=== PATIENT | female | born 1970 | race Hispanic/Latino ===

== ENCOUNTER → 2017-08-23 | Outpatient (REF) | payer BC | LOC: M LAB REF 18:44 | DX: J11.1 Influenza due to unidentified influenza virus with other respiratory manifestations (principal) | CPT/HCPCS: 87633 ==

== ENCOUNTER → 2018-04-26 | Outpatient (CLI) | payer BC | LOC: M RAD 13:58 | DX: N63.10 Unspecified lump in the right breast, unspecified quadrant (principal) | CPT/HCPCS: 77066 ==

== ENCOUNTER → 2018-09-17 | Outpatient (REF) | payer OTHER ==
[2018-09-19 15:52] LABS: HPV HYBRID CAPTURE II Negative (Negative)
== END ==
LOC: M SFHCWAGY 09:39
PROVIDERS: ATTEND Nurse Practitioner Family
DX: Z12.4 Encounter for screening for malignant neoplasm of cervix (principal)
CPT/HCPCS: 87624; G0123

== ENCOUNTER 2019-05-27 01:48 | Emergency (ER) | payer OTHER ==
[~2019-05-27] VITALS: Ht 160 cm; Wt 80.0 kg
[2019-05-27 02:16] LABS: BASO # 0.1 10^3/uL (0.0-0.2); BASO % 0.7 % (0.0-1.0); EOS # 0.3 10^3/uL (0.0-0.5); EOS % 2.4 % (0.0-3.0); HEMATOCRIT 42.2 % (36.0-47.0); HEMOGLOBIN 13.7 g/dl (12.0-15.5); LYMPH # 2.8 10^3/uL (1.5-5.0); LYMPH % 26.3 % (24.0-44.0); MEAN CORPUSCULAR HEMOGLOBIN 30.2 pg (27.0-33.0); MEAN CORPUSCULAR HGB CONC 32.5 g/dl (32.0-36.5); MEAN CORPUSCULAR VOLUME 93.2 fl (80.0-96.0); MONO # 0.7 10^3/uL (0.0-0.8); MONO % 6.6 % (0.0-5.0); NEUTROPHILS # 6.6 10^3/uL (1.5-8.5); NEUTROPHILS % 63.1 % (36.0-66.0); PLATELET COUNT, AUTOMATED 264 10^3/uL (150-450); RED BLOOD COUNT 4.53 10^6/uL (4.00-5.40); WHITE BLOOD COUNT 10.5 10^3/uL (4.0-10.0)
[2019-05-27 02:47] LABS: ALBUMIN 3.8 GM/DL (3.2-5.2); ALT/SGPT 34 U/L (12-78); BILIRUBIN,DIRECT < 0.1 MG/DL (0.0-0.2); BILIRUBIN,TOTAL 0.3 MG/DL (0.2-1.0); BLOOD UREA NITROGEN 23 MG/DL (7-18); CALCIUM LEVEL 9.2 MG/DL (8.5-10.1); CARBON DIOXIDE LEVEL 28 MEQ/L (21-32); CHLORIDE LEVEL 107 MEQ/L (98-107); CREATININE FOR GFR 0.84 MG/DL (0.55-1.30); GLOMERULAR FILTRATION RATE > 60.0 (>51); GLUCOSE, FASTING 130 MG/DL (70-100); LIPASE 152 U/L (73-393); POTASSIUM SERUM 3.9 MEQ/L (3.5-5.1); SODIUM LEVEL 142 MEQ/L (136-145); TOTAL PROTEIN 7.1 GM/DL (6.4-8.2)
[2019-05-27] MEDS ORDERED: ONDANSETRON 4MG/2ML VIAL (J2405) IV ONE (03:15)
[2019-05-27] MEDS ORDERED: KETOROLAC 30 MG/ML VIAL (J1885) IV ONE (03:15)
[2019-05-27] MEDS ORDERED: NS 1,000 ML IV ONE (03:15)
[2019-05-27] MEDS ORDERED: MORPHINE 4 MG/ML 1ML VIAL/SYRINGE (J2270) IV ONE (03:45)
--- NOTE | 2019-05-27 04:13 | REPVR ---
PROCEDURE INFORMATION: Exam: CT Abdomen And Pelvis Without Contrast Exam date and time: 05/27/2019 3:53 AM Clinical history: 49 years old, female; Abdominal pain; Localized; Left upper quadrant (luq); Additional info: Luq, L flank pain, HX kidney stones TECHNIQUE: Imaging protocol: Computed tomography of the abdomen and pelvis without contrast. Radiation optimization: All CT scans at this facility use at least one of these dose optimization techniques: automated exposure control; mA and/or kV adjustment per patient size (includes targeted exams where dose is matched to clinical indication); or iterative reconstruction. COMPARISON: CT ABD PELVIS W/O CONTRAST 05/03/2015 3:13 PM FINDINGS: Lungs: There is minimal, nonspecific dependent density in the lung bases. Mediastinum: A small hiatal hernia is present. Liver: The unenhanced liver appears unremarkable. Gallbladder and bile ducts: The gallbladder is normal with no stones or biliary ductal dilation. Pancreas: The pancreas appears unremarkable. No pancreatic ductal dilation identified. Spleen: The unenhanced spleen appears unremarkable. Adrenals: The adrenal glands are normal. Kidneys and ureters: There is left sided perinephric stranding. There is mild left kidney hydronephrosis. There is a 4 x5 mm distal left ureteral stone. The right ureter appears normal with no stones or hydronephrosis. There is a 3 mm nonobstructing stone in the left kidney lower pole. Stomach and bowel: Mild diverticulosis is present in the distal colon. The small bowel appears unremarkable. Appendix: A normal appendix is identified. Intraperitoneal space: There is no evidence of free intraperitoneal or pelvic fluid. There is no free intraperitoneal air. Vasculature: No aortic aneurysm. Lymph nodes: Unremarkable. No enlarged lymph nodes. Bladder: The bladder is unremarkable. No stones identified. Reproductive: The uterus is unremarkable. Bones/joints: No suspicious osseous lesions. No acute fractures or dislocations. Soft tissues: The soft tissues appear unremarkable. IMPRESSION: Obstructing 4 x 5 mm distal left ureteral stone with associated left-sided hydronephrosis and perinephric stranding. Electronically signed by: Camille Lazo On 05/27/2019 04:13:17 AM
[2019-05-27 05:48] VITALS: BP 101/56
[2019-05-27] MEDS ORDERED: ZOFR4TAB16 PO (06:09)
[2019-05-27] MEDS ORDERED: PERC5TAB12 PO (06:10)
[2019-05-27] MEDS ORDERED: FLOM0.4C39 PO (06:11)
== END 2019-05-27 06:43 | disposition home or self-care (01) ==
LOC: M ED 01:48
DX: N20.1 Calculus of ureter (principal); I47.1 Supraventricular tachycardia; Z88.1 Allergy status to other antibiotic agents; Z91.041 Radiographic dye allergy status
CPT/HCPCS: 74176; 80048; 80076; 81001; 83690; 85025; 96361; 96374; 96375; 99283; J1885; J2270; J2405

== ENCOUNTER → 2019-06-03 | Outpatient (REF) | payer OTHER ==
[~2019-06-03] MED LIST: FLOM0.4C39 PO; PERC5TAB12 PO; ZOFR4TAB16 PO
== END ==
LOC: M SMT 17:06
PROVIDERS: ATTEND Nurse Practitioner Women's Health
DX: N13.2 Hydronephrosis with renal and ureteral calculous obstruction (principal)

== ENCOUNTER → 2019-06-04 | Outpatient (CLI) | payer OTHER ==
[2019-06-04 11:35] LABS: IONIZED CALCIUM 4.6 MG/DL (4.5-5.3)
[2019-06-04 12:13] LABS: BLOOD UREA NITROGEN 13 MG/DL (7-18); CALCIUM LEVEL 8.9 MG/DL (8.5-10.1); CARBON DIOXIDE LEVEL 29 MEQ/L (21-32); CHLORIDE LEVEL 106 MEQ/L (98-107); CREATININE FOR GFR 0.69 MG/DL (0.55-1.30); GLOMERULAR FILTRATION RATE > 60.0 (>51); GLUCOSE, FASTING 100 MG/DL (70-100); MAGNESIUM LEVEL 2.4 MG/DL (1.8-2.4); PHOSPHORUS LEVEL 3.2 MG/DL (2.5-4.9); SODIUM LEVEL 141 MEQ/L (136-145); URIC ACID 5.1 MG/DL (2.6-6.0)
[2019-06-04 12:19] LABS: PTH INTACT 53.5 PG/ML (18.5-88.0)
== END ==
LOC: M LAB 11:16
PROVIDERS: ATTEND Nurse Practitioner Women's Health
DX: N13.2 Hydronephrosis with renal and ureteral calculous obstruction (principal)

== ENCOUNTER → 2019-09-16 | Outpatient (CLI) | payer BC, OTHER ==
--- NOTE | 2019-09-16 13:57 | REPMRS ---
Patient History The patient states she had a clinical breast exam in 09/2019. Patient is postmenopausal. No known family history of cancer. Benign stereotactic core biopsy of the left breast, 2006. No Hormone Replacement Therapy Digital Woman Screen Mammo: September 16, 2019 - Exam #: [id number] Bilateral CC and MLO view(s) were taken. Technologist: Aicha Rubin, Technologist Prior study comparison: April 26, 2018, digital mammo diagnostic bilateral, performed at [facility]. October 08, 2015, digital woman screen mammo performed at [facility]. July 27, 2014, digital woman screen mammo performed at [facility]. FINDINGS: There are scattered fibroglandular densities. This patient underwent a stereotactic needle biopsy and 2006 in the left breast for asymmetric density. A marker clip is again noted in the left breast adjacent to a stable soft tissue density. However, there are new microcalcifications posterior to the soft tissue density lateral to the soft tissue density which merit further evaluation. These do not appear to have been present previously. They are not well seen on the MLO view. There has been no other change in the appearance of the mammogram from the prior studies. There is a mild amount of scattered fibroglandular density which is fairly symmetric. There is no other interval development of dominant mass, architectural distortion, or grouped microcalcification suggestive of malignancy. 3-D tomosynthesis shows no additional findings. Assessment: BI-RADS/ACR category 0 mammogram, Incomplete: Need additional imaging evaluation and/or prior mammograms for comparison. Recommendation Special view mammogram of the left breast. This patient's Lifetime Breast Cancer Risk is estimated at 7.7 %. This mammogram was interpreted with the aid of an FDA-approved computer-aided dectection system. Electronically Signed By: Grayson Cope MD 09/16/19 [id number]
== END ==
LOC: M WHC 10:11
PROVIDERS: ATTEND Nurse Practitioner Family
DX: Z12.31 Encounter for screening mammogram for malignant neoplasm of breast (principal); R92.8 Other abnormal and inconclusive findings on diagnostic imaging of breast

== ENCOUNTER → 2019-09-16 | Outpatient (REF) | payer BC ==
[2019-09-16 16:05] LABS: CHLAMYDIA DNA AMPLIFICATION NEGATIVE (NEGATIVE); GC DNA AMPLIFICATION NEGATIVE (NEGATIVE)
== END ==
LOC: M SFHCWAGY 12:53
PROVIDERS: ATTEND Nurse Practitioner Family
DX: N84.1 Polyp of cervix uteri (principal); Z11.3 Encounter for screening for infections with a predominantly sexual mode of transmission

== ENCOUNTER → 2019-09-23 | Outpatient (CLI) | payer BC ==
--- NOTE | 2019-09-23 15:03 | REP ---
DIAGNOSTIC MAMMOGRAM LEFT BREAST: Magnification views left breast performed and correlated with the recent mammogram of 09/16/2019. These magnification views confirm the presence of pleomorphic microcalcifications in the upper outer quadrant of the left breast, posterior to a biopsy clip from a prior negative sterotactic biopsy. There appear to be at least three separate clusters of at least five microcalcifications in this region, at approximately 12 to 1 o'clock. This spans a tissue diameter of approximately 3 to 4 cm. Stereotactic biopsy is recommended. IMPRESSION: BIRADS 4: BI-RADS/ACR category 4 mammogram. Suspicious Abnormality - biopsy should be considered. New pleomorphic microcalcifications in the upper outer quadrant of the left breast with at least three separate clusters of microcalcifications in the region of 12 to 1 o'clock left breast. Stereotactic biopsy is recommended. The patient letter being requested is M4.
== END ==
LOC: M WHC 13:59
PROVIDERS: ATTEND Nurse Practitioner Family
DX: R92.0 Mammographic microcalcification found on diagnostic imaging of breast (principal)

== ENCOUNTER → 2019-09-25 | Outpatient (CLI) | payer BC ==
--- NOTE | 2019-09-25 20:18 | REP ---
Clinical: Postmenopausal bleeding. Technique: Transabdominal pelvic ultrasound followed by transvaginal examination for better evaluation of the endometrium and adnexa with color Doppler evaluation of the ovaries. Findings: Heterogeneous anteverted uterus measures 8.5 x 3.7 x 5.2 cm. Endometrial complex measures 3.8 mm thickness excluding trace amount of endocervical fluid. No discrete uterine or endometrial abnormalities identified. Bilateral ovaries are normal in appearance and vascularity without torsion. Right ovary measures 1.3 x 1.3 x 1.3 cm (RI 0.46). Left ovary measures 2.0 x 1.3 x 2.0 cm (RI 0.68). No pelvic fluid or adnexal mass lesion. Bladder is collapsed. Impression: Essentially normal pelvic ultrasound. Electronically Signed by Anand Camarillo MD 09/25/2019 08:10 P
== END ==
LOC: M WHC 11:36
PROVIDERS: ATTEND Nurse Practitioner Family
DX: N95.0 Postmenopausal bleeding (principal)

== ENCOUNTER → 2019-10-09 | Outpatient (CLI) | payer BC ==
[2019-10-09 09:27] VITALS: BP 118/80
--- NOTE | 2019-10-09 10:23 | REP ---
Specimen radiography left breast: Three views History: Stereotactic needle biopsy left breast. Multiple groupings of microcalcifications on comparison mammography September 23, 2019. Findings: The initial images labeled first biopsy medial area. The specimen radiograph demonstrates numerous microcalcifications in four separately collected specimens. The second and third image are labeled second biopsy lateral. These two views demonstrate multiple microcalcifications as well in each of the removed specimens. F impression: Specimen radiography confirms microcalcifications from the target grouping was. Electronically Signed by Ranjith Cope MD 10/09/2019 09:59 A
--- NOTE | 2019-10-09 10:32 | REP ---
DIGITAL DIAGNOSTIC UNILATERAL LEFT BREAST MAMMOGRAPHY: TWO VIEWS. HISTORY: Marker clip placement views. The patient status post stereotactic needle biopsy for two separate microcalcific targets in the left breast. Comparison mammography September 23, 2019. FINDINGS: The previously placed needle biopsy marker clip is again seen in the left breast approximately 1 o'clock. Lateral and somewhat posterior to this is a newly placed marker clip. This clip is in good position where a prior mammography showed a microcalcific grouping. There are very few remaining microcalcifications from this grouping. At second newly placed marker clip is seen in good position relative to another group of calcifications. This second clip is more inferiorly positioned. There is no evidence of phil hematoma. IMPRESSION: Two marker clips are placed today and appear in good position.
--- NOTE | 2019-10-11 13:38 | ROOPDOC ---
[facility] Report Of Operation Report of Operation DATE OF PROCEDURE: 10/09/19 PREPROCEDURE DIAGNOSES: Left breast calcifications POSTPROCEDURE DIAGNOSES: Left breast calcifications PROCEDURE: Left breast biopsy of 2 different clusters of calcifications SURGEON: Karyn Benavidez SPINNER OPERATOR: Dr Kelvin Cope MD ANESTHESIA: Local anesthetic was used ESTIMATED BLOOD LOSS: Approximately 1 mL. COMPLICATIONS: None REMARKS: 2 postbiopsy clips were seen in left breast mammogram along with the previously placed old clip.. DESCRIPTION OF PROCEDURE: Lidocaine 1% LOT [id number] Expiration 11/2022 Sodium Bicarbonate 8.4% LOT [id number] Expiration 11/2020 Hydromark clip LOT [id number] Expiration 04/2021 T1 titanium shaped 1 (closed Spring) medial biopsy site Hydromark clip LOT [id number] Expiration 09/2021 T3 titanium shaped 3 lateral biopsy site Bx device: Stereotactic Mammotome Revolve Dual Vacuum- assisted Biopsy System 10 G LOT [id number] Expiration 07/2022 medial biopsy site Bx device: Stereotactic Mammotome Revolve Dual Vacuum- assisted Biopsy System 10 G LOT [id number] Expiration 07/2022 lateral biopsy site Informed consent was obtained in the preop area. The most common risk and possible complications including bleeding, hematoma, bruising, infection, injury to surrounding structures were explained to the patient and she expressed understanding. Patient was taken to the procedure room and placed prone on the [facility] Prone Breast Biopsy table with the left breast hanging through the table aperture. Left breast was placed into Cranio-Caudal compression and Chief Human Resources Officer rogerio images were taken. Suspicious calcifications were identified on the rogerio images and target was set. Dr Kelvin Cope from radiology department assisted with the target selection. Two sites of calcifications were chosen. The CC approach from the top was also chosen. At this time, since we were able to confirm visibility of the suspicious calcifications and patient tolerated prone positioning allowing to proceed with the biopsy, appropriate time out was done stating patients name, date of , and the procedure to be performed. Procedure was started targeting medial group of calcifications. The left breast in CC compression was prepped in the usual fashion. Plain Lidocaine 1% and 8.4% sodium bicarbonate 10:1 mix was used to numb the skin, the biopsy site and tissues along the anticipated biopsy tract. Small skin incision was made with blade number 11. Mammotome 10 G stereotactic breast biopsy device was inserted through the incision and advanced to the previously set coordinates marking the target lesion. Pre-fire imaging was taken to assure appropriate positioning. At this time, Mammotome 10 G breast biopsy device was fired and vacuum assisted biopsies were collected. The biopsy samples were investigated with Faxitron Imaging system and numerous calcifications were observed in the specimen. Biopsy samples were then placed in the formaldehyde, marked with patients name and left medial breast biopsy site, and sent to pathology for evaluation. Hydromark clip was placed into the Mammotome biopsy device channel and deployed. Post-deployment imaging was done to assure appropriate clip deployment. Clip was noted in the left breast. This part of the procedure was completed and the device was removed from the breast. Manual compression in addition to paddle compression was held to achieve hemostasis. Next, our attention was shifted toward the lateral group of calcifications. New target was set after obtaining new lead worker of housekeeping and laundry rogerio views. The left breast was already in CC compression and there was no need for repositioning. Plain Lidocaine 1% an d 8.4% sodium bicarbonate 10:1 mix was used to numb the skin, the biopsy site and tissues along the anticipated biopsy tract for the lateral target. Small skin incision was made with blade number 11. Mammotome 10 G stereotactic breast biopsy device was inserted through the incision and advanced to the previously set coordinates marking the target lesion. Pre-fire imaging was taken to assure appropriate positioning. At this time, Mammotome 10 G breast biopsy device was fired and vacuum assisted biopsies were collected. The biopsy samples were investigated with Faxitron Imaging system and numerous calcifications were observed in the specimen. Biopsy samples were then placed in the formaldehyde, marked with patients name and left lateral breast biopsy site, and sent to pathology for evaluation. Hydromark clip was placed into the Mammotome biopsy device channel and deployed. Post-deployment imaging was done to assure appropriate clip deployment. Two clips were noted in the left breast. At this point, paddle CC compression of the left breast was released and manual pressure was held to decrease harmonic effect and to assure hemostasis. No bleeding was noted upon removal of the pressure. Patient was slowly repositioned and placed into sitting position, and then assisted off the table. Post-biopsy mammogram of the left breast was obtained and showed clips in expected position. Postprocedural dressing was placed. Patient tolerated procedure well and was taken to the recovery unit in stable condition. Discharge instructions were discussed with the patient and she expressed understanding. KARYN BENAVIDEZ DO Oct 11, 2019 13:38
== END ==
LOC: M WHCPRO 07:07
PROVIDERS: ATTEND Surgery
DX: D05.12 Intraductal carcinoma in situ of left breast (principal)

== ENCOUNTER → 2019-10-13 | Outpatient (REF) | payer BC | LOC: M SFHCWAGY 09:51 | PROVIDERS: ATTEND Surgery | DX: L53.9 Erythematous condition, unspecified (principal) ==

== ENCOUNTER → 2019-10-16 | Outpatient (CLI) | payer BC ==
--- NOTE | 2019-10-16 09:22 | REP ---
FOCUSED RIGHT BREAST SONOGRAPHY: HISTORY: Palpable mass 7- o'clock position 3 cm from the nipple and at 12-o'clock position 2.5 cm from the nipple. SONOGRAPHIC FINDINGS: Scanning at the area of the 7 o'clock palpable lesion shows a normal breast stroma. No cyst or mass is seen. At 12 o'clock position, 3 cm from the nipple there is a 1.3 x 1.1 x 0.4 cm oval-shaped simple cyst. This is felt to be unchanged when compared with sonographic images from this area of the right breast obtained on October 25, 2018. IMPRESSION: BIRADS category 2 benign findings.
== END ==
LOC: M WHC 07:35
PROVIDERS: ATTEND Surgery
DX: N60.01 Solitary cyst of right breast (principal); N63.20 Unspecified lump in the left breast, unspecified quadrant; N63.10 Unspecified lump in the right breast, unspecified quadrant

== ENCOUNTER → 2019-10-21 | Outpatient (REF) | payer BC ==
[2019-10-21 11:15] LABS: BLOOD UREA NITROGEN 13 MG/DL (7-18); CALCIUM LEVEL 8.4 MG/DL (8.5-10.1); CARBON DIOXIDE LEVEL 28 MEQ/L (21-32); CHLORIDE LEVEL 108 MEQ/L (98-107); GLOMERULAR FILTRATION RATE > 60.0 (>51); GLUCOSE, FASTING 99 MG/DL (70-100); POTASSIUM SERUM 3.8 MEQ/L (3.5-5.1); SODIUM LEVEL 139 MEQ/L (136-145)
== END ==
LOC: M PLALAB 08:03
PROVIDERS: ATTEND Surgery
DX: D05.12 Intraductal carcinoma in situ of left breast (principal)

== ENCOUNTER → 2019-10-24 | Outpatient (CLI) | payer BC ==
[~2019-10-24] MED LIST changes: +PROHANCE 279.3MG/ML 15ML VIAL (A9576) As Ordered ONE; +PROHANCE 279.3MG/ML 5ML VIAL (A9576) As Ordered ONE
--- NOTE | 2019-10-27 10:33 | REP ---
MRI BILATERAL BREASTS WITH AND WITHOUT CONTRAST: HISTORY: Ductal carcinoma left breast. COMPARISON: Mammograms 09/16/2019, 09/23/2019 and 10/09/2019. TECHNIQUE: Multiple sequences obtained in the axial, coronal and sagittal planes prior to and following the intravenous administration of 50 mL ProHance. Images are evaluated on the Svpply software, including dynamic post-IV gadolinium, axial T1 fat sat images, subtraction images, color overlay images and MIP reconstruction images. There is moderate parenchymal tissue bilaterally. There mild background parenchymal enhancement. Lymph nodes are seen in both axillary regions, more so on the left than on the right. All are less than 1 cm in short axis dimension. There is an oval cyst in the upper outer quadrant of the right breast measuring about 1.1 x 1.2 x 0.7 cm. Along the anteromedial margin of this cyst, there is nodular suspicious enhancement which has irregular margins. This demonstrates type 3 enhancement. This measures approximately 1 cm in diameter. In the left breast, three biopsy clips are present. One clip is more posteriorly and inferiorly located near the plane of the nipple, slightly medial to the midline. The other two clips are more superiorly located with a small amount of adjacent post biopsy fluid. Along the superior margin of the more medial clip, there is nodular, irregular suspicious enhancement measuring approximately 1 cm in diameter. More lateral marking clip is at the same level of the breast but does not demonstrate adjacent suspicious enhancement. In the posterior third of the breast, there is a 5 mm enhancing focus which is felt to represent an intramammary lymph node. No other suspicious enhancing mass or morphologic abnormality is seen bilaterally. IMPRESSION: BIRADS category 6 MRI left breast. In the superior aspect of the left breast, there are two adjacent biopsy clips. Along the superior margin of the more medially located clip, there is suspicious nodular enhancement approximately 1 cm in diameter. BIRADS category 4 suspicious MRI right breast. Along the anteromedial margin of a cyst in the upper outer quadrant of the right breast, there is an irregular enhancing nodule 1.0 x 1.2 x 1.0 cm. Recommend the patient return for a second look ultrasound of the right breast to attempt to identify this nodule along the anteromedial margin of the oval cyst, the cyst measures 1.1 x 1.2 x 0.7 cm. Electronically Signed by Nabeel Mullins MD 10/27/2019 10:54 A
== END ==
LOC: M RAD 14:40
PROVIDERS: ATTEND Surgery
DX: D05.12 Intraductal carcinoma in situ of left breast (principal)
CPT/HCPCS: A9576; C8908

== ENCOUNTER → 2019-10-28 | Outpatient (CLI) | payer BC ==
[~2019-10-28] MED LIST changes: -PROHANCE 279.3MG/ML 15ML VIAL (A9576) As Ordered ONE; -PROHANCE 279.3MG/ML 5ML VIAL (A9576) As Ordered ONE
--- NOTE | 2019-10-29 02:58 | REP ---
Clinical: Pain. Technique: AP and lateral views of the left tibia / fibula. Findings: Osseous structures, joint spaces, and surrounding soft tissues are normal. No acute fracture or dislocation. Surrounding soft tissues are unremarkable. Impression: Normal left tibia / fibula radiographs. Electronically Signed by Anand Camarillo MD 10/29/2019 02:51 A
== END ==
LOC: M RAD 17:06
PROVIDERS: ATTEND Internal Medicine
DX: M79.662 Pain in left lower leg (principal)

== ENCOUNTER → 2019-10-29 | Outpatient (CLI) | payer BC ==
--- NOTE | 2019-10-29 07:14 | CR ---
DATE OF CONSULTATION: 10/28/[address] Ramachandran. Dear Dr. Ramachandran: Thank you for asking me to see Ms. Stapleton in consultation prior to her breast surgery. As you know, Ms. Stapleton is a 49-year-old female with a past medical history of hyperglycemia, hyperlipidemia, nephrolithiasis, who presents in her usual state of health. Patient reports status post left breast biopsy requiring the use of clindamycin with good healing at site. She denies any fevers or chills, chest pain, or shortness of breath. Patient reports chronic foot pain. Was supposed to have surgery 5 years ago for bone spurs and a split tendon, but delayed surgery. Is now requesting further evaluation, referral back to [facility] after also having some left burning barbosa pain, which has been going on at least 6 months. Patient has history of supraventricular tachycardia (SVT) status post ablation times two in 2015. She does have an occasional palpitation but denies any associated lightheadedness, dizziness, chest pain, or shortness of breath. Patient reports recurrent nephrolithiasis. Trying to hydrate. Onset was in 2008. Follows with urology. Patient has tried to be healthier the last 3 years, consuming more water, less carbohydrates, sleeping better, and has lost 13 pounds. 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 Patient does have history of sleep apnea but reports it is mild and positional. REVIEW OF SYSTEMS: Otherwise, negative. PAST MEDICAL HISTORY: 1. Supraventricular tachycardia, status post cardiac ablation times two in 2015. Follows with Dr. Presley at [facility] every 2 years and has been given a good bill of health. 2. Hyperglycemia. 3. Hyperlipidemia. 4. Nephrolithiasis, recurrent. 5. Hiatal hernia. 6. Sleep apnea, positional. No continuous positive airway pressure (CPAP). 7. Foot pain, felt to be secondary to bilateral great metatarsal bone spurs. Has seen [facility], approximately 2014. MEDICATIONS: - multivitamin - vitamin D3 ALLERGIES: No known drug allergies. SOCIAL HISTORY: Single. Has children. 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 Never smoked. Only occasional alcohol. No regular exercise. FAMILY HISTORY: Father of heart attack. Mother skin cancer, thyroid issues, cardiac issues. A brother with prediabetes. Another brother with hyperlipidemia. PHYSICAL EXAMINATION: Obese female, no acute distress. Vital signs: Weight 173 with a body mass index (BMI) of 32. Blood pressure 98/64 with a heart rate of 71. Oxygen saturation is 92%. HEENT exam: Head is normocephalic. Neck is supple. She wears eyeglasses, but pupils equal, reactive to light. Extraocular movements are intact. Left tympanic membrane normal. Right tympanic membrane scarred and red. No cervical lymphadenopathy, jugular venous distention (JVD), thyromegaly, carotid bruits. Respiratory: Clear to auscultation. Resonant to percussion. Cardiovascular: Regular rate and rhythm. No murmur, rub, gallop. Abdomen: Obese, soft, nontender. No hepatosplenomegaly. Extremities: No cyanosis, clubbing, or edema. Breast examination: Mild diffuse fibroglandular breast disease. Left upper breast palpable thickening from recent biopsy, minimal tenderness, no erythema. LABORATORY DATA: From 10/28/2019, EKG normal sinus rhythm, rate of 71, axis of 10, some nonspecific T-wave flattening, unchanged from previous EKG. Labs 10/28/2019, normal CBC, med profile. Sugar is 110, but this is nonfasting. Normal liver panel. From 09/11/2019, fasting blood work showed a slightly elevated glucose at 104, an A1c of 6.0, total cholesterol 215, triglycerides 207, HDL 55, LDL 119 with a TSH of 2.84. IMPRESSION: Ms. Stapleton is a 49-year-old female with cardiovascular risk factors positive for prediabetes, obesity, hyperlipidemia, age, family history, who is active with no concerning cardiovascular symptoms and is felt to be optimized and at low risk for cardiovascular complications from the proposed surgical intervention, which can be further minimized by the following: PROBLEMS: 1. Left otitis media. Treat with amoxicillin. Patient reports surgery will not be at least until November. She will call if she has any further issues from this. 2. Hyperglycemia. Commended for efforts. Continue diet, exercise, carbohydrate restriction. 3. Hyperlipidemia. Continue diet, exercise. 4. Hiatal hernia, asymptomatic. 5. Obstructive sleep apnea (ALAYNA). [place] to be positional. She lies on her side. Improved since her weight loss. Certainly should monitor oxygen saturations perioperatively. 6. Supraventricular tachycardia. Treated with ablation. Clinically minimally symptomatic. Hold off further evaluation/treatment. 7. Nephrolithiasis. Continue to push fluids, dairy products, lemon, citrus. Clinically asymptomatic today. 8. Osteoarthritis (OA), chronic foot pain with known bone spurs. I will refer back to [facility]. She has left barbosa pain that I will proceed with x-ray imaging and followup as outpatient. Thank you very much for this consultation. Please call with questions or concerns.
--- NOTE | 2019-10-29 11:17 | REP ---
BILATERAL BREAST ULTRASOUND: Bilateral breast ultrasound is performed. Correlation made with prior MRI 10/24/2019 and mammographic images, most recently 10/09/2019. In the right breast at 12-o'clock position, an oval cyst is seen measuring 13 x 5 x 14 mm. Along the anteromedial margin of the cyst is a spiculated nodule corresponding to the suspicious nodule on the MRI. The spiculated nodule measures 1.1 x 0.8 x 1.0 cm. Ultrasound-guided biopsy is recommended. In the left breast at 11-o'clock, the most medial biopsy clip is identified. On the MRI there was an enhancing nodule just superior to that clip, which is located more inferiorly and medially relative to the other two biopsy clips, which are located in the upper outer quadrant of the left breast. There is no sonographic evidence of a nodule at the location of the nodular enhancement. Electronically Signed by Nabeel Mullins MD 10/29/2019 11:22 A
== END ==
LOC: M RAD 09:53
PROVIDERS: ATTEND Surgery
DX: C50.912 Malignant neoplasm of unspecified site of left female breast (principal)

== ENCOUNTER → 2019-10-31 | Outpatient (CLI) | payer BC ==
[~2019-10-31] MED LIST changes: +AMOX500C PO
[2019-10-31 16:53] VITALS: BP 122/82
--- NOTE | 2019-11-01 09:57 | REP ---
ULTRASOUND GUIDANCE FOR RIGHT BREAST BIOPSY: Ultrasound guidance was provided for Dr. Ramachandran who performed ultrasound-guided biopsy of a spiculated nodule at the 12-o'clock position of the right breast. This was seen on recent ultrasound 10/29/2019 and MRI 10/24/2019.
--- NOTE | 2019-11-01 09:59 | REP ---
POSTBIOPSY MAMMOGRAM RIGHT BREAST: MLO and CC views are performed of the right breast following ultrasound-guided biopsy of a spiculated nodule at 11 to 12-o'clock position right breast. Metallic clip is seen at the expected location of the spiculated nodule at the 11 to 12-o'clock position of the right breast.
--- NOTE | 2019-11-02 00:33 | ROOPDOC ---
[facility] Report Of Operation Report of Operation DATE OF PROCEDURE: 10/31/19 PREPROCEDURE DIAGNOSES: Right breast suspicious mass seen on MRI and then on second look ultrasound. POSTPROCEDURE DIAGNOSES: Right breast suspicious mass seen on MRI and then on second look ultrasound. PROCEDURE: Right breast mass ultrasound-guided biopsy with clip placement. SURGEON: Karyn Benavidez CHECKING DEPARTMENT SUPERVISOR: ANESTHESIA: Local anesthetic was used. ESTIMATED BLOOD LOSS: Approximately 1 mL. COMPLICATIONS: No complications. REMARKS: Postbiopsy right breast mammography showed clip in expected location. DESCRIPTION OF PROCEDURE: Lidocaine 1% LOT [id number] Expiration 08/2020 Sodium Bicarbonate 8.4% LOT [id number] Expiration 12/2020 Hydromark clip LOT [id number] SHAPE 4 Expiration: 05/2022 Bx device: BARD [id number] x10 cm LOT HUEN 3 Expiration 07/2022 Informed consent was obtained. The most common risk and possible complications including bleeding, hematoma, bruising, infection, injury to surrounding structures were explained to the patient and she expressed understanding. Patient was placed on the bed in the supine position with the right upper extremity placed above the head. Appropriate time out was done stating patients name, date of , and the procedure to be performed. The right breast was prepped and draped in the usual fashion. The ultrasound was used to confirm the location of the lesion in the right breast at 12:00 4 centimeters from the nipple. Plain Lidocaine 1% and 8.4% sodium bicarbonate 10:1 mix was used to numb the skin, the biopsy site and tissues along the anticipated biopsy tract. Small skin incision was made with blade number 11. BARD Marquee 14G cannula with introducer ([id number]) was inserted through the incision and advanced under the ultrasound guidance to position immediately adjacent to the lesion. Next, the introducer was removed and BARD Marquee 14G biopsy device was places in the cannula. Pre-biopsy imaging, and post-biopsy imaging were captured. Five good core biopsies were taken at various levels of the lesion. Specimen was placed in formaldehyde, labeled with appropriate biopsy site and patients name, and sent to pathology for evaluation. Next, the biopsy device was withdrawn and a clip introducer was inserted into the biopsy site via the cannula. The Hydromark clip was deployed under direct vision. Post-clip placement image was captured. Manual pressure over the biopsy cavity and tract was held after the clip introducer was withdrawn. No bleeding was noted upon removal of the pressure. Post-biopsy mammogram of the right breast showed clip in the expected location. Postprocedural dressing was placed. Patient tolerated procedure well. Discharge instructions were discussed with the patient and she expressed understanding. KARYN BENAVIDEZ DO Nov 02, 2019 00:33
== END ==
LOC: M WHCPRO 14:48
PROVIDERS: ATTEND Surgery
DX: C50.911 Malignant neoplasm of unspecified site of right female breast (principal)

== ENCOUNTER → 2019-10-31 | Outpatient (CLI) | payer BC ==
--- NOTE | 2019-11-01 08:04 | REPPI ---
REASON: Preop. PRIORS: None. FINDINGS: The superior mediastinal structures are midline. The cardiac silhouette is unremarkable in size, shape, and position. The diaphragmatic surfaces of the lungs are regular, and the costophrenic angles are clear. The pulmonary lara are clear. The imaged osseous structures are intact. IMPRESSION: There is no acute cardiopulmonary disease. Electronically Signed by Noman Crane DO 11/03/2019 07:50 A
== END ==
LOC: M PLAIMG 14:35
PROVIDERS: ATTEND Surgery
DX: Z01.818 Encounter for other preprocedural examination (principal); C50.912 Malignant neoplasm of unspecified site of left female breast

== ENCOUNTER → 2019-11-05 | Outpatient (CLI) | payer BC | LOC: M PLALAB 10:51 | PROVIDERS: ATTEND Surgery | DX: Z80.0 Family history of malignant neoplasm of digestive organs (principal); Z80.8 Family history of malignant neoplasm of other organs or systems ==

== ENCOUNTER → 2019-11-17 | Outpatient (CLI) | payer BC ==
[~2019-11-17] MED LIST changes: +CLIN300C5 PO; +DIPH25CA32 PO; +EXCETAB22 PO; +HYDR-3363 PO; +MULTCAP PO; +NATU1TAB5 PO; +OMEGCAP4 PO; +OXYC1TAB23 PO; +PERCOCET PO; +SENN-52 PO
== END ==
LOC: M LABSMTC 10:40
PROVIDERS: ATTEND Anesthesiology
DX: Z01.818 Encounter for other preprocedural examination (principal); Z11.59 Encounter for screening for other viral diseases
CPT/HCPCS: C9803; U0003

== ENCOUNTER 2019-11-20 06:36 | Day surgery (SDC) | payer BC ==
[~2019-11-20] VITALS: Ht 157.5 cm; Wt 76.8 kg
[~2019-11-20 06:36] MED LIST changes: -CLIN300C5 PO; -DIPH25CA32 PO; -EXCETAB22 PO; -HYDR-3363 PO; -OMEGCAP4 PO; -OXYC1TAB23 PO; -PERCOCET PO; -SENN-52 PO
[2019-11-20] MEDS ORDERED: LR 1,000 ML IV ONE (07:00)
[2019-11-20] MEDS ORDERED: HEPARIN SOD (PORCINE) 5000UNITS/ML VIAL (J1644 PER 1000UNITS) SQ ONE (07:00)
[2019-11-20] MEDS ORDERED: ceFAZolin SOD 2 GM in IV 1 EA IV ONE (07:00)
[2019-11-20] MEDS ORDERED: CLINDAMYCIN 900 MG in IV 1 EA IV ONE ×2 (09:45→17:00)
[2019-11-20] MEDS ORDERED: LIDOCAINE 2% 100MG/5ML SDV (FOR ANES.) As Ordered ONE (09:51)
[2019-11-20] MEDS ORDERED: fentaNYL 250 MCG/5 ML INJECTION (J3010) As Ordered ONE (09:51)
[2019-11-20] MEDS ORDERED: propofoL 200 MG/20 ML VIAL As Ordered ONE (09:51)
[2019-11-20] MEDS ORDERED: ROCURONIUM BROMIDE 50 MG/5 ML VIAL As Ordered ONE (09:51)
[2019-11-20] MEDS ORDERED: MIDAZOLAM INJ 2MG/2ML VIAL (J2250 PER 1MG) As Ordered ONE (09:52)
[2019-11-20] MEDS ORDERED: LIDOCAINE 1% SDV 30ML VIAL As Ordered ONE (09:57)
[2019-11-20] MEDS ORDERED: BUPIVACAINE HCL 0.25% 30ML VIAL As Ordered ONE (09:57)
[2019-11-20] MEDS ORDERED: BACITRACIN PWD 50,000 UNITS VIAL As Ordered ONE (09:58)
[2019-11-20] MEDS ORDERED: GENTAMICIN SULF 80MG/2ML VIAL As Ordered ONE (09:58)
[2019-11-20] MEDS ORDERED: SCOPOLAMINE 1MG TRANSDERMAL PATCH As Ordered ONE (10:07)
[2019-11-20] MEDS ORDERED: SCOPOLAMINE 1MG TRANSDERMAL PATCH TOP ONE (10:15)
[2019-11-20] MEDS ORDERED: METHYLENE BLUE 0.5% (5MG/ML) 10 ML AMP (PROVAYBLUE)(Q9968 PER 1MG) As Ordered ONE (10:18)
[2019-11-20] MEDS ORDERED: SUCCINYLCHOLINE 100 MG/5 ML SYRINGE (J0330) As Ordered ONE (10:32)
[2019-11-20] MEDS ORDERED: PHENYLephrine HCL 500 MCG/5 ML (100MCG/ML) SYRINGE (J2370) As Ordered ONE (10:40)
[2019-11-20] MEDS ORDERED: dexameTHASONE 4 MG/ML 1ML VIAL (J1100 PER 1MG) As Ordered ONE (10:43)
[2019-11-20] MEDS ORDERED: HYDROmorphone HCL 2 MG/ML 1ML VIAL (J1170) As Ordered ONE (10:51)
[2019-11-20] MEDS ORDERED: ONDANSETRON 4MG/2ML VIAL As Ordered ONE (11:06)
[2019-11-20] MEDS ORDERED: METOCLOPRAMIDE INJ 10MG/2ML VIAL (J2765 PER 1) As Ordered ONE (11:06)
[2019-11-20] MEDS ORDERED: ePHEDrine SULFATE 25 MG/5 ML(5MG/ML) SYRINGE As Ordered ONE (11:10)
[2019-11-20] MEDS ORDERED: BUPIVACAINE LIPOSOME/PF 1.3% 20ML VIAL (13.3MG/ML)(EXPAREL)(C9290 PER1MG) As Ordered ONE (13:26)
[2019-11-20] MEDS ORDERED: ACETAMINOPHEN 1000MG 100ML IV BTL (OFIRMEV) (J0131 PER 10MG) As Ordered ONE (14:06)
[2019-11-20] MEDS ORDERED: CLINDAMYCIN 900 MG/50 ML PREMIX BAG As Ordered ONE (14:37)
--- NOTE | 2019-11-20 15:16 | REP ---
BILATERAL BREAST LYMPHOSCINTIGRAPHY The procedure was performed under the direct supervision of Dr. Mullins. The images were reviewed with Dr. Mullins. The risks and benefits of the procedure were explained to the patient and informed consent was obtained. The right breast was addressed first. Using topical anesthetic and sterile technique 0.992 mCi of technetium 99 filtered sulfur colloid was injected subdermally and eight fractionated periareolar injections. The left breast was then addressed. Using topical anesthetic and sterile technique 0.999 mCi of technetium 99 filtered sulfur colloid was injected subdermally and eight fractionated periareolar injections. Images obtained 1 hour after injection show uptake in the tumor at 12 o'clock in the left breast and uptake in the upper outer quadrant of the right breast. Impression: Bilateral breast lymphoscintigraphy. There is uptake in the tumor at 12 o'clock in the left breast and uptake in the upper outer quadrant of the right breast. Electronically Signed by SOM Hand 11/20/2019 02:50 P Electronically Signed by Nabeel Mullins MD 11/20/2019 03:07 P
--- NOTE | 2019-11-20 15:33 | POST-OPPD ---
Postoperative Procedure Note Date Of Procedure: November 20, 2019 PREOPERATIVE DIAGNOSIS: Bilateral acquired deformity of the breasts, s/p bilateral mastectomy POSTOPERATIVE DIAGNOSIS: same FINDINGS: Bilateral skin spearing mastectomies. PROCEDURE: Immediate bilateral post mastectomy reconstruction with tissue expanders. SURGEON: Dr Koroma HOUSETRAILER SERVICER: Dr Ramachandran ANESTHESIA: General SPECIMENS: none ESTIMATED BLOOD LOSS: 50cc total REPLACED: none DRAINS: 10 mm EDUARDO drains x 4 COMPLICATIONS: none POSTOPERATIVE CONDITION: stable [id number] UMAIR KOROMA DO November 20, 2019 15:33
[2019-11-20] MEDS ORDERED: ACETAMINOPHEN TAB 650MG DOSE (2X325MG) PO PRN (15:45)
[2019-11-20] MEDS ORDERED: PERCOCET 5MG/325MG TAB PO PRN ×3 (15:45→16:15)
[2019-11-20] MEDS ORDERED: NS 1,000 ML IV SCH (15:45)
[2019-11-20] MEDS ORDERED: SENOKOT S TAB PO PRN (15:45)
[2019-11-20] MEDS ORDERED: MOM 30ML SUSPENSION UDC PO PRN (15:45)
[2019-11-20] MEDS ORDERED: ONDANSETRON 4MG/2ML VIAL IV PRN (16:00)
[2019-11-20] MEDS ORDERED: LR 1,000 ML IV SCH (16:00)
[2019-11-20] MEDS ORDERED: HYDROMORPHONE HCL 0.5 MG/ 0.5 ML SYRINGE (J1170 PER 1) IV PRN (16:15)
[2019-11-20] MEDS: fentaNYL 100 MCG/2 ML INJECTION (J3010) IV PRN ×2 (16:18→16:25)
[2019-11-20] MEDS ORDERED: diphenhydrAMINE 50MG/ML VIAL (J1200) As Ordered ONE (16:46)
[2019-11-20] MEDS ORDERED: CLINDAMYCIN 600 MG in IV 1 EA IV SCH (17:00)
[2019-11-20] MEDS ORDERED: diphenhydrAMINE 50MG/ML VIAL (J1200) IV PRN (17:00)
[2019-11-20] MEDS ORDERED: diphenhydrAMINE 25MG CAP PO PRN (18:00)
[2019-11-20] MEDS: LACTOBACILLUS ACIDOPHILUS CAP (BACID) PO SCH ×2 (18:00→20:02)
[2019-11-20] MEDS ORDERED: NALOXONE INJ 0.4MG/1ML VIAL (J2310 PER 1MG) IV PRN (18:15)
[2019-11-20 18:30] VITALS: BP 153/94
[2019-11-20 18:32] LABS: HEMATOCRIT 39.8 % (36.0-47.0); HEMOGLOBIN 13.1 g/dl (12.0-15.5); MEAN CORPUSCULAR HEMOGLOBIN 29.8 pg (27.0-33.0); MEAN CORPUSCULAR HGB CONC 32.9 g/dl (32.0-36.5); MEAN CORPUSCULAR VOLUME 90.5 fl (80.0-96.0); PLATELET COUNT, AUTOMATED 259 10^3/uL (150-450); WHITE BLOOD COUNT 13.6 10^3/uL (4.0-10.0)
[2019-11-20 19:00] VITALS: BP 151/93
[2019-11-20 19:04] LABS: BLOOD UREA NITROGEN 13 MG/DL (7-18); CALCIUM LEVEL 8.2 MG/DL (8.5-10.1); CARBON DIOXIDE LEVEL 27 MEQ/L (21-32); CHLORIDE LEVEL 104 MEQ/L (98-107); CREATININE FOR GFR 0.83 MG/DL (0.55-1.30); GLOMERULAR FILTRATION RATE > 60.0 (>51); GLUCOSE, FASTING 162 MG/DL (70-100); SODIUM LEVEL 139 MEQ/L (136-145)
[2019-11-20 19:14] LABS: HEMOGLOBIN A1c 5.8 %
[2019-11-20 20:48] VITALS: BP 145/90
--- NOTE | 2019-11-20 21:28 | ROOPDOC ---
[facility] Report Of Operation Report of Operation DATE OF PROCEDURE: 11/20/19 PREPROCEDURE DIAGNOSES: bilateral breast cancer POSTPROCEDURE DIAGNOSES: bilateral breast cancer PROCEDURE: bilateral skin sparing mastectomy with immediate reconstruction and bilateral sentinel lymph node biopsy, bilateral pectoralis and seratus muscle blocks SURGEON: Karyn Ramachandran DIRECTOR OF HOME CARE HOSPICE: Candy Roy ANESTHESIA: general. ESTIMATED BLOOD LOSS: Approximately 50 mL. COMPLICATIONS: none REMARKS, 2 left and 2 right sentinel lymph nodes were identified DESCRIPTION OF PROCEDURE: INDICATIONS: Ms. Stapleton is a 49 year old lady who was found to have a suspicious calcifications on her mammogram. Biopsy of left breast calcifications showed high grade DCIS in two different areas spanning 5 cm. MRI of the breast was obtained and it showed a suspicious nodule next to one of the clips in the left breast. Second look Us did not show suspicious lesion. MRI of the breast also showed suspicious mass in the right breast. This was biopsied and came back as invasive ductal cancer. We had extensive discussion regarding the surgical management and patient opted for bilateral mastectomy. I also explained that we need to evaluate her bilateral axilla with bilateral sentinel lymph node biopsy. Risks and possible complications of surgical procedure including bleeding, infection and injury to surrounding structures were explained to the patient and she wished to proceed. Consent was signed. Subcutaneous heparin 5000 units was given to patient in the preop area. Lymphoscintigraphy was reviewed preoperatively and the tracer was found in the bilateral axillas. DETAILS: Patient was taken to the operating room and placed supine on the operating room table. A sign in was called stating patients name, date of and the procedure to be done. Preoperative antibiotics were infused. Smooth induction of general anesthesia was done. Patients hands were extended on arm rests. Care was taken not to over extend patients arms Alejandre catheter was placed. Patients both breasts and axillas were prepped and draped in the usual fashion. Neoprobe was used to kulwinder the site of maximal signal in the axilla. The right and left breast Hydromark clips were identified with the ultrasound and skin was marked at each site marking the location of each tumor. Appropriate time out was done and patients name, date of , and the procedure to be done were confirmed. Procedure was started with left mastectomy. A transverse elliptical incision incorporating nipple areolar complex was made with scalpel number 15. Subcutaneous flaps were developed using electrocautery dissection. Dissection was carried toward the inframammary fold inferiorly, tow ann marie sternum medially, toward inferior aspect of clavicle superiorly and toward the axilla laterally. Doctor Paleys assistance was critical in allowing fast progression of the case and decreasing anesthesia time. Breast tissue was dissected from the muscle posteriorly and pectoralis fascia was taken with the specimen. The dissection was carried all the way to the [facility] making sure that axilla is not entered prematurely. Breast specimen was marked for orientation with short stitch marking superior edge of mastectomy and long stitch marking latera edge of mastectomy. The specimen was weighted and weight of 957 grams was reported. The specimen was then placed in formaldehyde, and passed to pathology. Mastectomy cavity was irrigated. Doctor Paleys assistance was critical in achieving adequate hemostasis and progressing the case safely. Next, our attention was turned toward the left axilla which was accessed from the mastectomy site. Clavipectoral fascia was opened over the site of maximum Neoprobe signal. Area of high signal was identified at the lateral border of the pectoralis major muscle. Echo lymph node #1 was identified and 10 second ex-vivo count was 4645. Second sentinel lymph node was identified and the 10 second ex-vivo count was 1698. Specimens were labeled appropriately and sent to pathology. Axilla was explored for presence of any additional lymph nodes and none were identified. 10 second count of the background was 7. Doctor Paleys assistance with identification of sentinel lymph nodes was again critical to avoid injury to surrounding nerves. The axilla was irrigated and hemostasis was achieved. At this point, two 10 mm EDUARDO drains were placed into the mastectomy cavity and axilla through separate stab incisions and secured at the skin with stitches. Next, pectoral and serratus plane blocks on the left side were also done with Exparel. Next, our attention was turned toward the right side. A transverse elliptical incision incorporating nipple areolar complex was made with scalpel number 15. Subcutaneous flaps were developed using electrocautery dissection. Dissection was carried toward the inframammary fold inferiorly, toward sternum medially, toward inferior aspect of clavicle superiorly and toward the axilla laterally. Doctor Paleys assistance was critical in allowing fast progression of the case and decreasing anesthesia time. Breast tissue was dissected from the muscle posteriorly and pectoralis fascia was taken with the specimen. The dissection was carried all the way to the [facility] making sure that axilla is not entered prematurely. Breast specimen was marked for orientation with short stitch marking superior edge of mastectomy and long stitch marking latera edge of mastectomy. The specimen was weighted and weight of 896 grams was reported. The specimen was then placed in formaldehyde, and passed to pathology. Mastect suze cavity was irrigated. Doctor Ruelas assistance was critical in achieving adequate hemostasis and progressing the case safely. Next, our attention was turned toward the right axilla which was accessed from the mastectomy site. Clavipectoral fascia was opened over the site of maximum Neoprobe signal. Area of high signal was identified at the lateral border of the pectoralis major muscle. Echo lymph node #1 was identified and 10 second ex-vivo count was [id number]. Second sentinel lymph node was identified and the 10 second ex-vivo count [id number]. This node was very small. Specimens were labeled appropriately and sent to pathology. Axilla was explored for presence of any additional lymph nodes and none were identified. 10 second count of the background was 4. Doctor Ruelas assistance with identification of sentinel lymph nodes was again critical to avoid injury to surrounding nerves. The axilla was irrigated and hemostasis was achieved. At this point, two 10 mm EDUARDO drains were placed into the mastectomy cavity and axilla through a separate stab incisions and secured at the skin with stitches. Next, pectoral and serratus plane blocks on the right side were also done with Exparel. The bilateral skin sparing mastectomy and bilateral sentinel lymph node biopsy portion of the procedure was completed. Instrument and sponge count were correct. The chest was re-prepped and re-draped for Dr Ruelas part of procedure involving tissue online retailer placement. Please refer to Dr. Ruelas note for details of this part of the procedure. I assisted with the reconstruction part of the procedure as well and stayed scrubbed throughout entire procedure. Bilateral breast incision was closed in the usual fashion. Deep dermal sutures were placed with 2-0 Vicryl to approximate mastectomy site edges. Dermis was closed with 3-0 Monocryl. Vaseline gauze was placed over the incisions as the patient has a sensitivity to tape and allergy to iodine. Final instrument and sponge count were correct. Patient emerged from general anesthesia without any problems. Patient tolerated procedure well and was taken to recovery unit in stable condition. Alejandre was removed in the PACU. KARYN RAMACHANDRAN DO November 20, 2019 21:28
[2019-11-20 21:48] VITALS: BP 152/72
[2019-11-20 22:22] VITALS: O2SAT 95
[2019-11-20 22:48] VITALS: BP 162/68
[2019-11-20] MEDS: CLINDAMYCIN 600 MG in IV 1 EA IV SCH (22:59)
--- NOTE | 2019-11-20 23:20 | HPE ---
DATE OF ADMISSION: 11/20/2019 CHIEF COMPLAINT: Bilateral mastectomies. HISTORY OF THE PRESENT ILLNESS: This is a 49-year-old female with past medical history significant for obesity, body mass index (BMI) of 31.2, hyperlipidemia, obstructive sleep apnea (ALAYNA),not on continuous positive airway pressure (CPAP), nephrolithiasis, supraventricular tachycardia (SVT), status post ablation times two in 2015, follows with Dr. Presley, hiatal hernia, periodic limb movement disorder of sleep, underwent biopsy of the left breast on 10/09/2019 and biopsy showing ductal carcinoma in situ, grade 3, microcalcification associated with carcinoma in situ, ER positive/TX positive, and biopsy of the right breast on 10/31/2019 due to right breast mass found on ultrasound showing invasive ductal carcinoma, grade 3, ER positive, TX weakly positive and HER2/maría negative. Underwent bilateral mastectomies with immediate bilateral postmastectomy reconstruction with tissue expanders on 11/20/[address] Roy and Dr. Ramachandran with 10 mm EDUARDO drains times four with approximately 1 mL estimated blood loss. Patient is to be admitted for observation and given IV clindamycin due to allergy to cephalexin. Hospitalist was asked to admit. Patient says that she has had a 10-pound weight loss, which was intentional, otherwise denies any fever, chills, nausea, vomiting, diarrhea, abdominal pain. Patient describes pain as 4/10 after being given Percocet. Patient complains of some pruritus, alleviated by Benadryl. PAST MEDICAL HISTORY: Obstructive sleep apnea, not on CPAP. Hyperlipidemia. History of prediabetes. Nephrolithiasis. SVT, status post ablation times two in 2015. Nephrolithiasis. Recurrent hiatal hernia. 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 PAST SURGICAL HISTORY: Biopsy of the left breast 10/09/2019. Right breast biopsy 10/31/2019. 11/20/2019 bilateral mastectomy with immediate reconstruction. HOME MEDICATIONS: - multivitamin - vitamin D3 ALLERGIES: CEPHALEXIN, CONTRAST and TAPE. 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 Never smoked cigarettes. Single with two children, Jagjit, , usually lives in [place] but has come up to be with his mother. Occasional alcohol, maybe twice a year during big occasions. Patient is a F[employer]. FAMILY HISTORY: Father of coronary artery disease, myocardial infarction ([place]) at the age of 74. Mother at age 83 with hypothyroidism, hypertension and skin cancer. The patient has four brothers with diabetes, diet controlled, and four sisters, one with a heart condition. REVIEW OF SYSTEMS: Per history of the present illness, 12-point system otherwise negative. PHYSICAL EXAMINATION: Temperature 97.8, pulse 106, respiratory rate 16, blood pressure 159/74, 95% on three liters nasal cannula. Generally, patient is awake, alert, oriented to person, place and time, answering questions appropriately. Anicteric sclerae. No jaundice. No thyromegaly or cervical lymphadenopathy. No jugular venous distention (JVD). Moist mucous membranes Lungs are clear to auscultation. Air entry is equal bilaterally. No wheezing, rales or rhonchi. The patient has a chest binder. Four EDUARDO drains are noted with bloody discharge. Abdomen is obese, soft, nontender, nondistended. Positive bowel sounds. Extremities: Venodyne boots. No pitting edema. No cyanosis, clubbing. LABORATORY DATA: Pending. IMAGING STUDIES: 11/20/2019: Bilateral breast lymphoscintigraphy: Uptake in the tumor at 12 o'clock in the left breast, uptake in the upper outer quadrant of the right breast. ASSESSMENT AND PLAN: This is a 49-year-old obese female, BMI of 31, prediabetic, hyperlipidemia, hiatal hernia, nephrolithiasis, SVT, status post cardiac ablation, obstructive sleep apnea, not on CPAP, bilateral metatarsal bone spurs, status post left breast biopsy 10/09/2019 showing invasive ductal carcinoma, grade 3, ER positive, TX positive, HER2/maría negative, status post right breast biopsy 10/31/2019 with invasive ductal carcinoma, grade 3, ER positive, TX positive, HER2/maría negative. Underwent bilateral mastectomy with immediate postmastectomy reconstruction with tissue expanders. Hospitalist was asked to admit. IMPRESSION: 1. Invasive ductal carcinoma grade 3, bilateral breasts, ER positive, TX positive, HER2/maría negative, status post bilateral mastectomies with immediate bilateral postmastectomy reconstruction with tissue expanders. Per Dr. Roy, patient is to continue with binder and four EDUARDO drains. She is to be continued on clindamycin antibiotics perioperatively, as needed Percocet and Tylenol for pain or fever. Incentive spirometry to prevent atelectasis, pneumonia. Dr. Roy has been consulted to continue with postoperative management. 2. History of supraventricular tachycardia, stable currently, no recurrence. Patient had undergone two ablations with Dr. Presley, outpatient followup, monitor patient's vitals with standard of care checks. No blood pressure on bilateral arms, cuff to be placed on the right leg. 3. History of obstructive sleep apnea. Continue on ALAYNA protocol. Patient does not use CPAP at home. Currently at risk of hypercapnic failure due to opioids for pain control. 4. Hyperlipidemia. Check lipid profile in the morning. 5. Hiatal hernia. No gastrointestinal (GI) symptoms at this time. 6. History of recurrent nephrolithiasis, asymptomatic. 7. Chronic bilateral foot pain due to bone spurs. Outpatient followup. 8. Deep vein thrombosis (DVT) prophylaxis with compression stockings for now. MTDD
[2019-11-21] MEDS: CLINDAMYCIN 600 MG in IV 1 EA IV SCH (05:16)
[2019-11-21 05:22] VITALS: BP 129/70
[2019-11-21 06:22] LABS: BASO % 0.1 % (0.0-1.0); EOS % 0.1 % (0.0-3.0); HEMATOCRIT 36.5 % (36.0-47.0); HEMOGLOBIN 12.1 g/dl (12.0-15.5); LYMPH # 2.5 10^3/uL (1.5-5.0); LYMPH % 18.9 % (24.0-44.0); MEAN CORPUSCULAR HGB CONC 33.2 g/dl (32.0-36.5); MEAN CORPUSCULAR VOLUME 90.6 fl (80.0-96.0); MONO # 1.2 10^3/uL (0.0-0.8); MONO % 9.2 % (0.0-5.0); NEUTROPHILS # 9.6 10^3/uL (1.5-8.5); NEUTROPHILS % 71.3 % (36.0-66.0); PLATELET COUNT, AUTOMATED 254 10^3/uL (150-450); RED BLOOD COUNT 4.03 10^6/uL (4.00-5.40); WHITE BLOOD COUNT 13.4 10^3/uL (4.0-10.0)
[2019-11-21 06:36] LABS: BLOOD UREA NITROGEN 10 MG/DL (7-18); CALCIUM LEVEL 8.1 MG/DL (8.5-10.1); CARBON DIOXIDE LEVEL 26 MEQ/L (21-32); CHLORIDE LEVEL 108 MEQ/L (98-107); CHOLESTEROL LEVEL 192 MG/DL (<200); CHOLESTEROL RISK RATIO 3.096 (<5); CREATININE FOR GFR 0.73 MG/DL (0.55-1.30); GLOMERULAR FILTRATION RATE > 60.0 (>51); GLUCOSE, FASTING 116 MG/DL (70-100); HDL CHOLESTEROL 62 MG/DL (>40); LDL CHOLESTEROL 98 MG/DL (<100); NON-HDL-C 130 MG/DL; POTASSIUM SERUM 3.7 MEQ/L (3.5-5.1); SODIUM LEVEL 142 MEQ/L (136-145); THYROID STIMULATING HORMONE 0.879 uIU/ML (0.358-3.740); TRIGLYCERIDES LEVEL 158 MG/DL (<150)
[2019-11-21] MEDS ORDERED: SENN-52 PO (07:06)
[2019-11-21] MEDS ORDERED: PERCOCET PO (07:06)
--- NOTE | 2019-11-21 08:11 | IPNPDOC ---
Subjective General Date Seen: November 21, 2019 Subject Chief Complaint/History The patient is a 49-year-old female admitted with a reason for visit of Bilateral Breast Malignant Neoplasm. Patient s/p bilateral mastectomy with SLNB with immediate reconstruction with expanders. Doing well today. Pain controlled, ambulating, voiding, tolerating diet. Current Medications Current Medications Current Medications Medications (Trade) Dose Ordered Sig/Jeb Route PRN Reason Start Time Stop Time Status Last Admin Dose Admin Acetaminophen (Tylenol Tab) 650 mg Q4HP PRN PO PAIN OR FEVER 11/20/19 15:45 Clindamycin Phosphate 600 mg/ IV Miscellaneous Supplies 50 ml @ 100 mls/hr Q6H IV 11/20/19 17:00 11/20/19 16:42 DC Clindamycin Phosphate 600 mg/ IV Miscellaneous Supplies 50 ml @ 100 mls/hr Q6H IV 11/20/19 23:00 11/21/19 05:16 Diphenhydramine HCl (Benadryl) 12.5 mg Q4HP PRN IV PRURITIS ASSOC WITH NARCOTICS 11/20/19 17:00 11/20/19 18:00 DC 11/20/19 16:56 Diphenhydramine HCl (Benadryl) 25 mg Q4HP PRN PO ITCHING 11/20/19 18:00 11/20/19 20:02 Fentanyl Citrate (Sublimaze) 25 mcg Q5MP PRN IV PAIN LEVEL 5-10 11/20/19 16:00 11/20/19 17:00 DC 11/20/19 16:25 Hydromorphone HCl (Dilaudid) 0.4 mg Q5MP PRN IV PAIN LEVEL 4-7 11/20/19 16:15 11/20/19 17:15 DC Lactated Ringer's 1,000 ml @ 100 mls/hr Q10H IV 11/20/19 16:00 11/20/19 17:00 DC Lactobacillus Acidophilus (Bacid) 1 ea WMHS PO 11/20/19 18:00 11/20/19 20:02 Magnesium Hydroxide (Milk Of Magnesia) 30 ml Q4HP PRN PO CONSTIPATION 11/20/19 15:45 Multivitamins (Theragram-M) 1 tab DAILY PO 11/21/19 09:00 Naloxone HCl (Narcan) 0.1 mg Q5MP PRN IV RESP. RATE < 10 11/20/19 18:15 Ondansetron HCl (ZOFRAN INJection) 4 mg Q4HP PRN IV NAUSEA OR VOMITING 11/20/19 16:00 11/20/19 17:00 DC Oxycodone/ Acetaminophen (Percocet 5mg/ 325mg Tablet) 1 tab ASDIRECTED PRN PO PAIN LEVEL 1-4 11/20/19 16:15 11/20/19 17:15 DC 11/20/19 16:17 Oxycodone/ Acetaminophen (Percocet 5mg/ 325mg Tablet) 1 tab Q4HP PRN PO MILD/MODERATE PAIN (PS 1-7) 11/20/19 15:45 Oxycodone/ Acetaminophen (Percocet 5mg/ 325mg Tablet) 2 tab Q4HP PRN PO SEVERE PAIN (PS 8-10) 11/20/19 15:45 11/20/19 23:13 Senna/Docusate Sodium (Senokot S) 2 tab BIDP PRN PO CONSTIPATION 11/20/19 15:45 Sodium Chloride 1,000 ml @ 100 mls/hr Q10H IV 11/20/19 15:45 11/21/19 01:44 DC 11/20/19 15:45 Allergies Coded Allergies: Contrast Media (Verified Allergy, Severe, anaphylaxis, 11/20/19) cephalexin (Verified Allergy, Intermediate, rash, 11/20/19) pt reports had has dose of this recently and did not break out in a rash, but did feel itchy TAPE (Verified Allergy, Mild, RASH, 11/20/19) Objective Physical Examination Examination GENERAL APPEARANCE:Patient seen, laying in bed, awake, alert, and oriented. Comfortable, in no acute distress. SKIN: Warm and moist. BREAST: Right and left soft, non-tender incisions intact. EDUARDO drains: R 100, L 55 cc/24 hr. NAC: Viable, warm, symmetrical, mild post-op ecchymosis, no expanding hematoma. Flaps viable. LUNGS: Clear to auscultation bilaterally. No wheezing appreciated. HEART: No chest wall abnormalities. Regular rate and rhythm with no murmurs appreciated. ABDOMEN: Abdomen is soft, non-tender, non-distended. EXTREMITIES: No edema identified. No calf tenderness. Vital Signs Vital Signs Date Time Temp Pulse Resp B/P (MAP) Pulse Ox O2 Delivery O2 Flow Rate FiO2 11/21/19 05:22 99.8 76 20 129/70 (89) 97 Room Air 11/20/19 22:48 2.0 I&Os I&O- Last 24 Hours up to 6 AM 11/21/19 06:00 Intake Total 4935 ml Output Total 3330 ml Balance 1605 ml Laboratory Data Labs 24H Laboratory Tests 2 11/20/19 18:10: Nucleated Red Blood Cells % (auto) 0.0, Anion Gap 8, Glomerular Filtration Rate > 60.0, Estimated Mean Plasma Glucose 120H, Hemoglobin A1c 5.8, Calcium Level 8.2L 11/21/19 05:54: Nucleated Red Blood Cells % (auto) 0.0, Anion Gap 8, Glomerular Filtration Rate > 60.0, Calcium Level 8.1L, Immature Granulocyte % (Auto) 0.4, Neutrophils (%) (Auto) 71.3H, Lymphocytes (%) (Auto) 18.9L, Monocytes (%) (Auto) 9.2H, Eosinophils (%) (Auto) 0.1, Basophils (%) (Auto) 0.1, Neutrophils # (Auto) 9.6H, Lymphocytes # (Auto) 2.5, Monocytes # (Auto) 1.2H, Eosinophils # (Auto) 0.0, Basophils # (Auto) 0.0, Triglycerides Level 158H, Total Cholesterol 192, LDL Cholesterol 98, Non-HDL Cholesterol (LDL + VLDL) 130, Total HDL Cholesterol 62, Cholesterol/HDL Ratio 3.096, Thyroid Stimulating Hormone (TSH) 0.879 CBC/BMP Laboratory Tests 11/20/19 18:10 11/21/19 05:54 Impression S/p Bilateral mastectomies with SLNB and immediate post mastectomy reconstruction POD 1 Doing well. Stable for discharge No heavy lifting. Dressing changed, do not remove dressing at home. Keep surgical bra on. Empty drains daily, record output. Continue with antibiotics, incentive spirometry at home. F/up plastic surgery 11/26/19@ 1:45pm Plan / VTE VTE Prophylaxis Ordered?: Yes UMAIR KOROMA DO November 21, 2019 08:11
[2019-11-21] MEDS ORDERED: CLIN300C5 PO (08:29)
[2019-11-21] MEDS ORDERED: MULTIVITAMINS/MINERALS THERAP 1 TAB PO SCH (09:00)
[2019-11-21] MEDS: LACTOBACILLUS ACIDOPHILUS CAP (BACID) PO SCH (09:02)
--- NOTE | 2019-11-21 13:02 | IPNPDOC ---
Subjective Date Seen The patient was seen on 11/21/19. Subjective Chief Complaint/HPI Ms. Velarde is a 49-year-old lady with bilateral breast cancer (right invasive ductal carcinoma and left ductal carcinoma in situ), status post bilateral skin sparing mastectomy with immediate reconstruction and bilateral sentinel lymph node biopsy done yesterday. Events since last encounter She is doing well after surgery. She is sore especially when she is trying to move her hands. She was able to void after the surgery. She does not have nausea or vomiting. She was able to ambulate to the bathroom with assistance. She did not walk down the hallway yet. She has 4 EDUARDO drains (2 per side) with serous sanguinous output. About 150 mL was since surgery till midnight and another 150 mL since midnight till morning. Musculoskeletal: Reports: Shoulder Pain, Arm Pain, Muscle Pain Objective Physical Examination General Exam: Positive: Cooperative Eye Exam: Positive: EOMI ENT Exam: Positive: Mucous membr. moist/pink Chest Exam: Positive: Normal air movement Heart Exam: Positive: Rate Normal Abdomen Exam: Positive: Soft Extremity Exam: Positive: Other (no winging os scapula ) Neuro Exam: Positive: Normal Speech Other physical findings BREAST EXAM: bilateral mastectomy flaps are viable, tissue consultant electronics is in place. 2 JPs are of R and 2 EDUARDO are on L side. serosanguinous drainage is present. Drains were stripped at bedside. No erythema or hematoma present. No significan t swelling Assessment /Plan Assessment 49 y o F with b/l breast ca, s/p b/l SSM and b/l SLNbx POD1 - pain control - monitor drain output - drain teaching per Nursing staff prior to discharge - encouraged IS - wound care per plastic team - f/u with Breast surgery 12/04 at 2:30 pm - stable for discharge form breast surgery point, final decision deferred to plastic and medical teams Plan/VTE VTE Prophylaxis Ordered?: Yes VS, I&O, 24H, Fishbone Vital Signs/I&O Vital Signs Date Time Temp Pulse Resp B/P (MAP) Pulse Ox O2 Delivery O2 Flow Rate FiO2 11/21/19 05:22 99.8 76 20 129/70 (89) 97 Room Air 11/20/19 22:48 2.0 I&O- Last 24 Hours up to 6 AM 11/21/19 06:00 Intake Total 4935 ml Output Total 3330 ml Balance 1605 ml Laboratory Data 24H LABS Laboratory Tests 2 11/20/19 18:10: Nucleated Red Blood Cells % (auto) 0.0, Anion Gap 8, Glomerular Filtration Rate > 60.0, Estimated Mean Plasma Glucose 120H, Hemoglobin A1c 5.8, Calcium Level 8.2L 11/21/19 05:54: Nucleated Red Blood Cells % (auto) 0.0, Anion Gap 8, Glomerular Filtration Rate > 60.0, Calcium Level 8.1L, Immature Granulocyte % (Auto) 0.4, Neutrophils (%) (Auto) 71.3H, Lymphocytes (%) (Auto) 18.9L, Monocytes (%) (Auto) 9.2H, Eosinophils (%) (Auto) 0.1, Basophils (%) (Auto) 0.1, Neutrophils # (Auto) 9.6H, Lymphocytes # (Auto) 2.5, Monocytes # (Auto) 1.2H, Eosinophils # (Auto) 0.0, Basophils # (Auto) 0.0, Triglycerides Level 158H, Total Cholesterol 192, LDL Cholesterol 98, Non-HDL Cholesterol (LDL + VLDL) 130, Total HDL Cholesterol 62, Cholesterol/HDL Ratio 3.096, Thyroid Stimulating Hormone (TSH) 0.879 CBC/BMP Laboratory Tests 11/20/19 18:10 11/21/19 05:54 KARYN BENAVIDEZ DO November 21, 2019 07:11
--- NOTE | 2019-11-23 21:34 | DSES ---
DATE OF ADMISSION: 11/20/2019 DATE OF DISCHARGE: 11/21/2019 CONSULTANTS: Dr. Roy, Dr. Ramachandran. PRIMARY DISCHARGE DIAGNOSIS: 1. Bilateral breast malignant neoplasm with invasive ductal carcinoma stage III, ER positive/MT positive HER-2/maría negative, status post bilateral mastectomy with immediate reconstruction with expanders with sentinel node lymph biopsy (SNLB). 2. Obesity, body mass index (BMI) is 31. 3. Reactive leukocytosis. 4. History of obstructive sleep apnea, not on continuous positive airway pressure (C-PAP) . 5. Hyperlipidemia. 6. History of supraventricular tachycardia (SVT) status post ablation x2 in 2016. 7. Recurrent hiatal hernia. 8. Chronic foot pain. DISCHARGE MEDICATIONS: - Percocet 5/325 mg one tablet every 6 hours as needed for pain - clindamycin 300 mg twice a day for seven days - Senokot two tablets twice a day as needed for constipation - vitamin D 125 mcg daily - multivitamin 1 tablet daily HOSPITAL COURSE: This is a 49-year-old female who underwent breast biopsy on the left on 10/09/2019 due to breast mass. Right breast done on 10/31/2019, both showing invasive ductal carcinoma grade III, ER positive/MT positive, HER-2/maría negative. Patient subsequently underwent bilateral mastectomies with immediate bilateral post mastectomy reconstruction with tissue expanders on 11/20/2019 and was kept overnight for observation. Patient had four Pedro-Monk (EDUARDO) drains and had no issues overnight. She was keep on obstructive sleep apnea (ALAYNA) protocol. She was given intravenous (IV) clindamycin for perioperative prophylaxis. No other issues overnight. PHYSICAL EXAMINATION ON DISCHARGE: Temperature 99.8, pulse 76, respiratory 20, blood pressure 129/70, 97% on room air. GENERAL: Patient is awake, alert, oriented to person, place and time. No jugular venous distention (JVD) or thyromegaly. LUNGS: Clear to auscultation. No wheezing, rales or rhonchi. Patient has four EDUARDO drains and postoperative binder. ABDOMEN: Obese, soft, nontender. Positive bowel sounds x4 quadrants. EXTREMITIES: No pitting edema. LABORATORY DATA: White count 13.4, hemoglobin 12, hematocrit 36, platelet count 254. Sodium 142, potassium 3.7, chloride 108, bicarbonate 26, BUN 10, creatinine 0.73, glucose 116, calcium 8.1. A1c 5.8. Triglyceride 158, total cholesterol 192, LDL 98. TSH 0.879. Pathology pending. IMAGING STUDIES: Lymph node scan: Bilateral breast lymph node scintigraphy with uptake in a tumor in the left breast, uptake in the upper outer quadrant of the right breast. DISCHARGE INSTRUCTIONS: Patient is to follow up with Dr. Roy and defer to Dr. Roy and Dr. Ramachandran for postoperative wound management, activity level and further pain medications. Time spent on discharge: 30 minutes. AMYD
--- NOTE | 2019-11-25 09:32 | RO ---
DATE OF PROCEDURE: 11/20/2019 PREPROCEDURE DIAGNOSIS: Bilateral acquired deformity of the breast, status post bilateral mastectomy. POSTPROCEDURE DIAGNOSIS: Bilateral acquired deformity of the breast, status post bilateral mastectomy. PROCEDURE: Immediate bilateral postmastectomy reconstruction with tissue expanders. SURGEON: Dr. Candy Roy. EVENT SALES ASSISTANT: Dr. Ramachandran. ANESTHESIA: General. SPECIMENS: Specimens were sent in the mastectomy portion of the case. ESTIMATED BLOOD LOSS: 50 mL total for the whole procedure. No replacement. DRAINS: Four 10 mm Pedro-Monk drains COMPLICATIONS: None. POSTOPERATIVE CONDITION: Stable. DESCRIPTION OF PROCEDURE: This is a 49-year-old female who was diagnosed with bilateral breast cancer. She was scheduled for bilateral mastectomies with sentinel lymph node biopsies. That portion of the procedure will be dictated separately by Dr Ramachandran. We agreed with the patient that she is going to have expanders to implant reconstruction option. On the day of surgery, she will have immediate post mastectomy reconstruction replacement of tissue expanders with possible use of artificial dermis. All the risks and benefits and alternatives discussed with the patient in detail and she is ready to proceed. The breast mastectomy portion of the procedure will be dictated separately by Dr. Ramachandran. After that portion of the procedure was completed, a time out was taken again. Patient was prepped and draped in the usual sterile fashion. We started our procedure on the left side. Pectoralis muscle was examined. It is a good wide muscle. So we started creating a subpectoral pocket under direct vision with lighted retractor. We had minimal bleeding which was controlled using electrocautery. The inferolateral portion of the subpectoral pocket is going to be covered by the anterior portion of the serratus anterior muscle, which was elevated using electrocautery of the costal edges. It has a good thick amount of muscle and fascia which will be covering the inferolateral portion. The plan consultant was measured to be a good fit is [address] Ramachandran was irrigating the pocket with bacitracin antibiotic solution and also giving a block into pectoralis muscle with Exparel, total 8 cc. While she was doing this, I brought in the plan consultant to the back table. All the air was expelled and it was irrigated with bacitracin irrigation solution. Then we brought in the plan consultant and placed it in the new subpectoral pocket. It fit there perfectly. The inferior tab was sutured to the chest wall with #2-0 Vicryl. Then the pocket was closed with interrupted #2-0 Vicryl sutures without tension. After the pocket was closed, verified, we used the magnet, identified the port site and 300 mL of injectable normal saline was infiltrated, which created just enough amount of pressure without overextending the muscle. Two 10 mm Pedro-Monk drains were placed through separate stab incisions, one for the axilla and medial for the inferior breast. Then the flaps were closed in layers with interrupted #2-0 Vicryl sutures, #3-0 Monocryl sutures and a #5-0 plain dermis interrupted sutures. Then we turned our attention to the right side and a mirror procedure was repeated on that side. The pectoralis muscle was examined in good condition and was nice and wide. Subpectoral pocket was created under direct vision with lighted retractors. The lateral inferior portion of the pocket was going to be powered by the anterior portion of the serratus anterior muscle, which was elevated off the ribs anteriorly. Using electrocautery, hemostasis was obtained. Then the wound was irrigated with bacitracin irrigation solution and while Dr. Ramachandran was doing the irrigation and given a block with Exparel, total 8cc into the pectoralis muscle , 550 mL of plan consultant was introduced to the back field. Then I had it prepped by expelling all of the air and irrigated it with bacitracin solution. Then the plan consultant was placed into subpectoral pocket. Inferior tab was used for securing the plan consultant in place and we continued using #2-0 Vicryl suture. Then the pocket was closed with interrupted #2-0 Vicryl sutures. After the pocket is completely closed, we used the magnet to identify the port and the plan consultant was inflated to 300 mL injectable normal saline. We made two separate stab incisions and two 10 mm Pedro-Monk drains were place, one into the axilla and one into the inferior breast. Exparel 2 cc on each side were injected in area of drains for post op pain control. Then the flaps were closed with interrupted #2-0 Vicryl sutures and #3-0 Monocryl sutures in layers, then #5-0 Monocryl sutures closing a horizontal scar. Vaseline gauze, bulky dressing and a surgical bra were placed on the patient. She was extubated in the operating room without any difficulty, transferred to the recovery room in stable condition. CHRISTINE
== END 2019-11-21 10:55 | disposition home or self-care (01) ==
LOC: M SDC 06:36 → M MS5PR 18:15 → M SDC 11-21 10:55
PROVIDERS: ATTEND Surgery
DX: C50.912 Malignant neoplasm of unspecified site of left female breast (principal); D05.11 Intraductal carcinoma in situ of right breast; Z17.0 Estrogen receptor positive status [ER+]; E78.5 Hyperlipidemia, unspecified; G47.30 Sleep apnea, unspecified; Z91.041 Radiographic dye allergy status; Z88.1 Allergy status to other antibiotic agents
CPT/HCPCS: 19303; 19340; 36415; 38525; 64450; 78195; 80048; 80061; 81025; 83036; 84443; 85025; 85027; 86850; 86900; 86901; 88307; 96365; 96366; A9541; C9290; J0131; J0330; J1100; J1170; J1200; J1644; J2250; J2370; J2405; J2765; J3010; Q9968

== ENCOUNTER 2019-11-25 13:36 | Inpatient (IN) | payer BC ==
[~2019-11-25] VITALS: Ht 157.5 cm; Wt 80.6 kg
[~2019-11-25 13:36] MED LIST changes: +CLIN300C5 PO; +PERCOCET PO; +SENN-52 PO
[2019-11-25 14:13] VITALS: BP 124/85
--- NOTE | 2019-11-25 15:06 | CR.PDOC ---
Plastic Surgery Consultation Date of Consultation 11/25/19 History and Physical CONSULT REPORT FOR: Medical service REASON FOR CONSULTATION: Bilateral mastectomy with reconstruction HISTORY OF PRESENT ILLNESS: 49 y/o female s/p bilateral mastectomy with recorder of deeds reconstruction on 11/20/19. Patient presented to my office for follow up today with significant red rash. She was discharged home on Clindamycin due to presence of 4 drains and implant. Started developing rash over the weekend, Clindamycin stopped, treated with Benadryl, atarax, with no significant improvement. No respiratory symptoms, rash and itchiness only. Today examined in my office, sent for in hospital treatment of the allergic reaction. PAST MEDICAL HISTORY: 1. Bilateral breast CA 2. GERD 3. Sleep apnea 4. arrhythmia PAST SURGICAL HISTORY: INCLUDES: 1. Cardiac ablation x 2. 2. Bilateral mastectomy with reconstruction. PREVIOUS ANESTHESIA REACTIONS: denies ALLERGIES: Contrast media, Iodine, Tape, Cephalexin, Clindamycin? Confirmed with patient the list. FAMILY HISTORY: none contributory. HOME MEDICATIONS: Please see below. REVIEW OF SYSTEMS: GENERAL: Denies chills, reports weight gain,. HEENT: Denies blurred vision and double vision. Denies ear symptoms. Denies hoarseness. NECK: Denies any neck pain]. CARDIOVASCULAR: Denies chest pain and palpitations. MUSCULOSKELETAL: Denies arthralgias, back pain and thrombophlebitis. SKIN: red rash. S/p bilateral mastectomy incisions NEUROLOGIC: Denies headache, stroke and transient ischemic attack. PSYCHIATRIC: Denies anxiety and depression. ENDOCRINE: Denies thyroid disease. HEMATOLOGY/ONCOLOGY: Denies bleeding or clotting disorder. HEART: Denies any chest pains, palpitations, paroxysmal dyspnea, orthopnea. PULMONARY: Denies chronic cough, dyspnea and wheezing. GASTROINTESTINAL: Denies rectal bleeding, family history of colon cancer, constipation, diarrhea, dysphagia, heartburn and jaundice. GENITOURINARY: Denies dysuria, frequency, hematuria and nocturia. ENDOCRINE: Denies polydipsia, polyphagia, polyuria, heat or cold intolerance. INFECTIOUS: Denies any recent upper respiratory tract infection, UTI, need for use of antibiotics. NUTRITION: Reports good appetite. PHYSICAL EXAMINATION: VITALS SIGNS: Please see below. GENERAL APPEARANCE:Patient seen, laying in bed, awake, alert, and oriented. Comfortable, in no acute distress. SKIN: Warm and moist. Red rash neck, face, both breasts, abdomen, upper and lower extremities. BREAST: Right and left soft, non-tender incisions intact. EDUARDO drains: 75 cc/24 hr right and left . Well Service Floor Worker palpable, Flaps viable, with red rash. Incisions intact. LUNGS: Clear to auscultation bilaterally. No wheezing appreciated. HEART: No chest wall abnormalities. Regular rate and rhythm with no murmurs appreciated. ABDOMEN: Abdomen is soft, non-tender, non-distended. EXTREMITIES: Extremities have no deformities. No edema identified. No calf tenderness. LABORATORY DATA: Please see below. IMPRESSION: S/p bilateral mastectomies with recorder of deeds reconstruction. Acute allergic urticaria. PLANS: Admit to the hospital for control of allergic response. Monitor EDUARDO drains. No wetting incision. Dry dressing, support bra. Will follow patient for surgical progress. Vital Signs Vital Signs Date Time Temp Pulse Resp B/P (MAP) Pulse Ox O2 Delivery O2 Flow Rate FiO2 11/25/19 14:13 98.0 115 18 124/85 (98) 93 Room Air Home Medications Scheduled Cholecalciferol (Vitamin D3) (Vitamin D3) 125 Mcg Tablet, 125 MCG PO DAILY, (Reported) Clindamycin HCl (Clindamycin HCl) 300 Mg Capsule, 300 MG PO BID Multivitamin (Multivitamins) 1 Each Capsule, 1 CAP PO DAILY, (Reported) Scheduled PRN Oxycodone/Acetaminophen (Oxycodone-Acetaminophen 5-325) 1 Each Tablet, 1 TAB PO Q4HP PRN for MILD/MODERATE PAIN (PS 1-7) Sennosides/Docusate Sodium (Senna Plus Tablet) 1 Each Tablet, 2 TAB PO BIDP PRN for CONSTIPATION Allergies Coded Allergies: Contrast Media (Verified Allergy, Severe, anaphylaxis, 11/20/19) cephalexin (Verified Allergy, Intermediate, rash, 11/20/19) pt reports had has dose of this recently and did not break out in a rash, but did feel itchy TAPE (Verified Allergy, Mild, RASH, 11/20/19) UMAIR KOROMA DO November 25, 2019 15:06
--- NOTE | 2019-11-25 15:28 | HPEPDOC ---
[facility] Medical History & Physical Date of Admission November 25, 2019 Date of Service: November 25, 2019 Attending Physician: MACIEL REID MD History and Physical CHIEF COMPLAINT: Sent from plastic surgeon for her allergic drug reaction HISTORY OF PRESENT ILLNESS: 49-year-old female with past medical history of bilateral breast cancer status post mastectomy 5 days ago, SVT status post ablation, GERD and prediabetes presents from plastic surgery's office for allergic drug reaction. Patient was discharged on clindamycin after bilateral mastectomy, reports pruritus at the time of discharge and developed a rash over the weekend which has been worsening since. The rash started on her back and has been spreading towards her chest, neck and proximal extremities. She was concerned and went to her plastic surgeon who sent her here for further evaluation. Patient has taken clindamycin in the past, many years ago, denies any reaction at that time. Patient denies any shortness of breath, chest pain, nausea, vomiting, diarrhea or constipation. 10 point review of system is negative except for above PAST MEDICAL HISTORY: 1. Bilateral breast cancer. 2. SVT. 3. GERD. 4. Prediabetes PAST SURGICAL HISTORY: 1. Bilateral mastectomies. 2. Cardiac ablation. SOCIAL HISTORY: Never smoker. Denies alcohol use. Denies drug use FAMILY HISTORY: Father of [place] ALLERGIES: Please see below. HOME MEDICATIONS: Please see below. PHYSICAL EXAMINATION: VITAL SIGNS: Please see below. GENERAL: No distress, obese HEENT: Normocephalic, atraumatic, moist mucous membranes NECK: Supple CARDIOVASCULAR EXAMINATION: S1, S2, tachycardic RESPIRATORY EXAMINATION: Clear to auscultation, no wheezing ABDOMINAL EXAMINATION: Soft, nontender, nondistended, positive bowel sounds EXTREMITIES: Range of motion intact SKIN: Diffuse maculopapular rash noted, mostly over the trunk, followed by chest/abdomen and proximal extremities, 4 EDUARDO drains noted with serosanguineous fluid NEUROLOGICAL EXAMINATION: Alert and oriented 3, no focal deficits PSYCHIATRIC EXAMINATION: Calm and cooperative LABORATORY DATA: See below. MICROBIOLOGY: Please see below. ASSESSMENT: This 49-year-old female with past medical history of breast cancer, status post recent mastectomy is being admitted for morbilliform drug eruption. PLAN: 1. Morbilliform drug eruption. Likely secondary to clindamycin, Benadryl 25 mg every 6 hours, prednisone 40 mg daily, gentle IV hydration, supportive care. Antibodies have been switched to vancomycin. 2. Bilateral breast cancer. Status post recent mastectomy, now on vancomycin, plastic surgery following. 3. SVT. Status post ablation, currently in sinus tachycardia, will monitor. DVT prophylaxis: Lovenox. GI prophylaxis: Not needed Vital Signs Vital Signs Date Time Temp Pulse Resp B/P (MAP) Pulse Ox O2 Delivery O2 Flow Rate FiO2 11/25/19 14:13 98.0 115 18 124/85 (98) 93 Room Air Home Medications Scheduled Cholecalciferol (Vitamin D3) (Vitamin D3) 125 Mcg Tablet, 125 MCG PO DAILY Clindamycin HCl (Clindamycin HCl) 300 Mg Capsule, 300 MG PO BID Multivitamin (Multivitamins) 1 Each Capsule, 1 CAP PO DAILY Scheduled PRN Oxycodone/Acetaminophen (Oxycodone-Acetaminophen 5-325) 1 Each Tablet, 1 TAB PO Q4HP PRN for MILD/MODERATE PAIN (PS 1-7) Sennosides/Docusate Sodium (Senna Plus Tablet) 1 Each Tablet, 2 TAB PO BIDP PRN for CONSTIPATION Allergies Coded Allergies: Contrast Media (Verified Allergy, Severe, anaphylaxis, 11/20/19) cephalexin (Verified Allergy, Intermediate, rash, 11/20/19) pt reports had has dose of this recently and did not break out in a rash, but did feel itchy TAPE (Verified Allergy, Mild, RASH, 11/20/19) A-FIB/CHADSVASC A-FIB History Current/History of A-Fib/PAF?: No MACIEL REID MD November 25, 2019 15:28
[2019-11-25] MEDS ORDERED: OXYC1TAB23 PO (15:35)
[2019-11-25] MEDS ORDERED: EXCETAB22 PO (15:35)
[2019-11-25] MEDS ORDERED: HYDR-3363 PO (15:35)
[2019-11-25] MEDS ORDERED: DIPH25CA32 PO (15:35)
[2019-11-25] MEDS ORDERED: OMEGCAP4 PO (15:35)
[2019-11-25 15:42] LABS: BASO % 0.2 % (0.0-1.0); EOS # 0.5 10^3/uL (0.0-0.5); EOS % 3.7 % (0.0-3.0); HEMATOCRIT 43.1 % (36.0-47.0); HEMOGLOBIN 14.4 g/dl (12.0-15.5); LYMPH # 0.8 10^3/uL (1.5-5.0); LYMPH % 5.6 % (24.0-44.0); MEAN CORPUSCULAR HEMOGLOBIN 29.8 pg (27.0-33.0); MEAN CORPUSCULAR HGB CONC 33.4 g/dl (32.0-36.5); MEAN CORPUSCULAR VOLUME 89.2 fl (80.0-96.0); MONO # 0.7 10^3/uL (0.0-0.8); MONO % 4.7 % (0.0-5.0); NEUTROPHILS # 12.3 10^3/uL (1.5-8.5); NEUTROPHILS % 83.6 % (36.0-66.0); PLATELET COUNT, AUTOMATED 357 10^3/uL (150-450); RED BLOOD COUNT 4.83 10^6/uL (4.00-5.40); WHITE BLOOD COUNT 14.7 10^3/uL (4.0-10.0)
[2019-11-25] MEDS: NS 1,000 ML IV SCH (15:50)
[2019-11-25] MEDS ORDERED: diphenhydrAMINE 25MG CAP PO ONE (16:00)
[2019-11-25] MEDS ORDERED: predniSONE 20 MG TAB PO ONE (16:00)
[2019-11-25 16:21] LABS: ALBUMIN 2.9 GM/DL (3.2-5.2); ALT/SGPT 29 U/L (12-78); BILIRUBIN,TOTAL 0.4 MG/DL (0.2-1.0); BLOOD UREA NITROGEN 11 MG/DL (7-18); CALCIUM LEVEL 8.3 MG/DL (8.5-10.1); CARBON DIOXIDE LEVEL 25 MEQ/L (21-32); CHLORIDE LEVEL 105 MEQ/L (98-107); GLOMERULAR FILTRATION RATE > 60.0 (>51); GLUCOSE, FASTING 108 MG/DL (70-100); POTASSIUM SERUM 4.2 MEQ/L (3.5-5.1); SODIUM LEVEL 138 MEQ/L (136-145); TOTAL PROTEIN 6.3 GM/DL (6.4-8.2)
[2019-11-25] MEDS ORDERED: VANCOMYCIN HCL 1,000 MG, VIAL MATE ADAPTER 1 EACH in D5W 250 ML IV SCH (17:00)
[2019-11-25] MEDS ORDERED: VANCOMYCIN HCL 500 MG in D5W MINI-BAG PLUS 100 ML IV ONE (18:00)
[2019-11-25] MEDS: ACETAMINOPHEN TAB 650MG DOSE (2X325MG) PO PRN (21:33)
[2019-11-25 22:00] VITALS: BP 126/82
[2019-11-26] MEDS: NS 1,000 ML IV SCH (00:13)
[2019-11-26] MEDS: diphenhydrAMINE 25MG CAP PO SCH ×4 (00:13→18:42)
[2019-11-26] MEDS: ACETAMINOPHEN TAB 650MG DOSE (2X325MG) PO PRN ×2 (01:50→09:58)
[2019-11-26 05:17] LABS: HEMATOCRIT 36.8 % (36.0-47.0); MEAN CORPUSCULAR HEMOGLOBIN 29.9 pg (27.0-33.0); MEAN CORPUSCULAR HGB CONC 33.2 g/dl (32.0-36.5); MEAN CORPUSCULAR VOLUME 90.2 fl (80.0-96.0); PLATELET COUNT, AUTOMATED 328 10^3/uL (150-450); RED BLOOD COUNT 4.08 10^6/uL (4.00-5.40)
[2019-11-26 05:23] LABS: HEMOGLOBIN 12.2 g/dl (12.0-15.5)
[2019-11-26 05:45] LABS: ALBUMIN 2.5 GM/DL (3.2-5.2); ALT/SGPT 26 U/L (12-78); BILIRUBIN,TOTAL 0.4 MG/DL (0.2-1.0); BLOOD UREA NITROGEN 9 MG/DL (7-18); CALCIUM LEVEL 7.9 MG/DL (8.5-10.1); CARBON DIOXIDE LEVEL 26 MEQ/L (21-32); CHLORIDE LEVEL 109 MEQ/L (98-107); CREATININE FOR GFR 0.58 MG/DL (0.55-1.30); GLOMERULAR FILTRATION RATE > 60.0 (>51); GLUCOSE, FASTING 115 MG/DL (70-100); POTASSIUM SERUM 4.1 MEQ/L (3.5-5.1); SODIUM LEVEL 142 MEQ/L (136-145); TOTAL PROTEIN 5.4 GM/DL (6.4-8.2)
[2019-11-26 06:00] VITALS: BP 131/71
--- NOTE | 2019-11-26 08:32 | IPNPDOC ---
Subjective General Date Seen: November 26, 2019 Subject Chief Complaint/History The patient is a 49-year-old female admitted with a reason for visit of Allergic Reactions. Patient is comfortable in bed. She feels that she is swelling with fluids. Pain controlled. Tolerating diet, ambulating. EDUARDO drains reducing drainage. Still with significant amount of red rash. No SOB, difficulty breathing, swelling of mucus membranes. Current Medications Current Medications Current Medications Medications (Trade) Dose Ordered Sig/Jeb Route PRN Reason Start Time Stop Time Status Last Admin Dose Admin Acetaminophen (Tylenol Tab) 650 mg Q4HP PRN PO PAIN OR FEVER 11/25/19 20:15 11/26/19 01:50 Diphenhydramine HCl (Benadryl) 25 mg Q6H PO 11/26/19 00:00 11/26/19 05:41 Enoxaparin Sodium (Lovenox) 40 mg DAILY SC 11/26/19 09:00 Home Med (Med Rec Complete!) ASDIRECTED XX 11/25/19 15:45 11/25/19 15:39 DC Prednisone (Deltasone) 40 mg DAILY PO 11/26/19 09:00 Sodium Chloride 1,000 ml @ 125 mls/hr Q8H IV 11/25/19 15:15 11/26/19 00:13 Vancomycin HCl 1000 mg/IV Miscellaneous Supplies 1 each/ Dextrose 270 ml @ 270 mls/hr Q12H IV 11/25/19 17:00 11/25/19 18:07 DC Allergies Coded Allergies: Contrast Media (Verified Allergy, Severe, anaphylaxis, 11/20/19) cephalexin (Verified Allergy, Intermediate, rash, 11/20/19) pt reports had has dose of this recently and did not break out in a rash, but did feel itchy TAPE (Verified Allergy, Mild, RASH, 11/20/19) clindamycin (Verified Allergy, Unknown, RASH/ITCH, 11/25/19) Objective Physical Examination Examination GENERAL APPEARANCE:Patient seen, laying in bed, awake, alert, and oriented. Comfortable, in no acute distress. SKIN: Warm and moist. Significant amount of red rash neck, chest, back, upper and upper lower extremities. Moderate pruritus, no weeping. BREAST: Right and left soft, non-tender incisions intact. EDUAROD drains: L 20/, R 55/10 cc/24 hr. NAC: Viable, warm, symmetrical, mild post-op ecchymosis, no expanding hematoma. HEENT: Normocephalic, atraumatic. [place] palpebral conjunctiva, anicteric sclerae. Lips and mucosa appear moist, no angioedema. NECK: Supple, no thyromegaly. No obvious jugular venous distention. Rash. LUNGS: Clear to auscultation bilaterally. No wheezing appreciated. HEART: No chest wall abnormalities. Regular rate and rhythm with no murmurs appreciated. EXTREMITIES: No edema identified. No calf tenderness. Vital Signs Vital Signs Date Time Temp Pulse Resp B/P (MAP) Pulse Ox O2 Delivery O2 Flow Rate FiO2 11/26/19 06:00 98.4 96 18 131/71 (91) 97 Room Air I&Os I&O- Last 24 Hours up to 6 AM 11/26/19 06:00 Intake Total 1800 ml Output Total 150 ml Balance 1650 ml Laboratory Data Labs 24H Laboratory Tests 2 11/25/19 15:06: Immature Granulocyte % (Auto) 2.2, Neutrophils (%) (Auto) 83.6H, Lymphocytes (%) (Auto) 5.6L, Monocytes (%) (Auto) 4.7, Eosinophils (%) (Auto) 3.7H, Basophils (%) (Auto) 0.2, Neutrophils # (Auto) 12.3H, Lymphocytes # (Auto) 0.8L, Monocytes # (Auto) 0.7, Eosinophils # (Auto) 0.5, Basophils # (Auto) 0.0, Nucleated Red Blood Cells % (auto) 0.0, Anion Gap 8, Glomerular Filtration Rate > 60.0, Calcium Level 8.3L, Total Bilirubin 0.4, Aspartate Amino Transf (AST/SGOT) 17, Alanine Aminotransferase (ALT/SGPT) 29, Alkaline Phosphatase 53, Total Protein 6.3L, Albumin 2.9L, Albumin/Globulin Ratio 0.9L 11/26/19 04:50: Nucleated Red Blood Cells % (auto) 0.0, Anion Gap 7L, Glomerular Filtration Rate > 60.0, Calcium Level 7.9L, Total Bilirubin 0.4, Aspartate Amino Transf (AST/SGOT) 12, Alanine Aminotransferase (ALT/SGPT) 26, Alkaline Phosphatase 45, Total Protein 5.4L, Albumin 2.5L, Albumin/Globulin Ratio 0.9L, Magnesium Level 2.0 CBC/BMP Laboratory Tests 11/25/19 15:06 11/26/19 04:50 Impression S/p bilateral mastectomy with reconstruction. Acute allergic reaction with urticaria. EDUARDO output is improving. WBC likely reactive to allergic response. Continue with Prednisone, Benadryl per medical team Add Hydrocortisone topical as well. Will follow. Plan / VTE VTE Prophylaxis Ordered?: Yes UMAIR KOROMA DO November 26, 2019 08:32
[2019-11-26] MEDS: ENOXAPARIN 40MG/0.4ML SYRINGE (J1650 PER 10MG) SC SCH (09:00)
[2019-11-26] MEDS: predniSONE 20 MG TAB PO SCH (09:58)
[2019-11-26] MEDS ORDERED: HYDROCORTISONE 1% CREAM 30 GM TOP ONE (10:00)
[2019-11-26 14:42] VITALS: BP 128/84
--- NOTE | 2019-11-26 17:37 | IPNPDOC ---
Date Seen The patient was seen on 11/26/19. Progress Note SUBJECTIVE: 49-year-old female with past medical history of bilateral breast cancer status post mastectomy 5 days ago, SVT status post ablation, GERD and prediabetes is admitted for morbilliform drug eruption secondary to clindamycin. Patient's rash has slightly worsened from yesterday, patient remains otherwise asymptomatic and comfortable in the morning. She is without any new complaints, denies shortness of breath, chest pain, nausea, vomiting, diarrhea or constipation. 10 point review of system is negative except for above PHYSICAL EXAMINATION: VITAL SIGNS: Please see below. GENERAL: No distress, obese HEENT: Normocephalic, atraumatic, moist mucous membranes NECK: Supple CARDIOVASCULAR EXAMINATION: S1, S2, tachycardic RESPIRATORY EXAMINATION: Clear to auscultation, no wheezing ABDOMINAL EXAMINATION: Soft, nontender, nondistended, positive bowel sounds EXTREMITIES: Range of motion intact SKIN: Diffuse maculopapular rash noted, mostly over the trunk, followed by chest/abdomen and proximal extremities, 4 EDUARDO drains noted with serosanguineous fluid NEUROLOGICAL EXAMINATION: Alert and oriented 3, no focal deficits PSYCHIATRIC EXAMINATION: Calm and cooperative LABORATORY DATA: See below. MICROBIOLOGY: Please see below. ASSESSMENT: This 49-year-old female with past medical history of breast cancer, status post recent mastectomy is being admitted for morbilliform drug eruption. PLAN: 1. Morbilliform drug eruption. Likely secondary to clindamycin, Benadryl 25 mg every 6 hours, prednisone 40 mg daily, supportive care. 2. Bilateral breast cancer. Status post recent mastectomy, antibiotics discontinued. 3. SVT. Status post ablation, currently normal sinus rhythm, will monitor. DVT prophylaxis: Lovenox. GI prophylaxis: Not needed VS, I&O, 24H, Fishbone Vital Signs/I&O Vital Signs Date Time Temp Pulse Resp B/P (MAP) Pulse Ox O2 Delivery O2 Flow Rate FiO2 11/26/19 14:42 98.2 108 20 128/84 (99) 95 11/26/19 06:00 Room Air I&O- Last 24 Hours up to 6 AM 11/26/19 06:00 Intake Total 1800 ml Output Total 150 ml Balance 1650 ml Laboratory Data 24H LABS Laboratory Tests 2 11/26/19 04:50: Nucleated Red Blood Cells % (auto) 0.0, Anion Gap 7L, Glomerular Filtration Rate > 60.0, Calcium Level 7.9L, Magnesium Level 2.0, Total Bilirubin 0.4, Aspartate Amino Transf (AST/SGOT) 12, Alanine Aminotransferase (ALT/SGPT) 26, Alkaline Phosphatase 45, Total Protein 5.4L, Albumin 2.5L, Albumin/Globulin Ratio 0.9L CBC/BMP Laboratory Tests 11/26/19 04:50 MACIEL REID MD November 26, 2019 17:37
[2019-11-26 19:40] VITALS: BP 131/83
[2019-11-27] MEDS: ACETAMINOPHEN TAB 650MG DOSE (2X325MG) PO PRN ×4 (00:03→18:33)
[2019-11-27] MEDS: diphenhydrAMINE 25MG CAP PO SCH ×4 (00:04→18:33)
[2019-11-27 05:39] LABS: HEMATOCRIT 34.7 % (36.0-47.0); HEMOGLOBIN 11.5 g/dl (12.0-15.5); MEAN CORPUSCULAR HEMOGLOBIN 30.4 pg (27.0-33.0); MEAN CORPUSCULAR HGB CONC 33.1 g/dl (32.0-36.5); MEAN CORPUSCULAR VOLUME 91.8 fl (80.0-96.0); PLATELET COUNT, AUTOMATED 327 10^3/uL (150-450); RED BLOOD COUNT 3.78 10^6/uL (4.00-5.40); WHITE BLOOD COUNT 14.7 10^3/uL (4.0-10.0)
[2019-11-27 05:56] VITALS: BP 157/89
[2019-11-27 06:01] LABS: BLOOD UREA NITROGEN 11 MG/DL (7-18); CARBON DIOXIDE LEVEL 25 MEQ/L (21-32); CHLORIDE LEVEL 110 MEQ/L (98-107); CREATININE FOR GFR 0.58 MG/DL (0.55-1.30); GLOMERULAR FILTRATION RATE > 60.0 (>51); GLUCOSE, FASTING 91 MG/DL (70-100); POTASSIUM SERUM 3.8 MEQ/L (3.5-5.1); SODIUM LEVEL 144 MEQ/L (136-145)
[2019-11-27] MEDS: predniSONE 20 MG TAB PO SCH (08:24)
[2019-11-27] MEDS: HYDROCORTISONE 1% CREAM 30 GM TOP SCH (08:25)
[2019-11-27] MEDS: ENOXAPARIN 40MG/0.4ML SYRINGE (J1650 PER 10MG) SC SCH (08:25)
--- NOTE | 2019-11-27 08:39 | IPN ---
DATE OF SERVICE: 11/27/2019 Zahra is seen in the hospitalist service, admitted with a drug eruption secondary to clindamycin. The rash seems to be about the same as yesterday. It was getting worse yesterday per sign-out report, but per patient, it seems to have plateaued. No conjunctival, oral, or genitourinary symptoms, or lesions. PHYSICAL EXAMINATION: Afebrile. Vital signs stable. Lungs clear. Heart: Regular rate and rhythm. Abdomen: Soft, nontender. Rash is confluent, maculopapular, morbilliform, and per patient, the same as yesterday. LABORATORIES: White count is 14.7 (on steroids). Electrolytes unremarkable. IMPRESSION: Drug eruption from clindamycin. PLAN: Continue current regimen. Expect discharge tomorrow provided there are no signs of George-Aftab syndrome has evolved in the meantime.
--- NOTE | 2019-11-27 13:01 | IPNPDOC ---
Subjective General Date Seen: November 27, 2019 Subject Chief Complaint/History The patient is a 49-year-old female admitted with a reason for visit of Allergic Reactions. Patient is feeling better today. Less itching. No pain. Ambulating, tolerating diet. Facial swelling improved. Current Medications Current Medications Current Medications Medications (Trade) Dose Ordered Sig/Jeb Route PRN Reason Start Time Stop Time Status Last Admin Dose Admin Acetaminophen (Tylenol Tab) 650 mg Q4HP PRN PO PAIN OR FEVER 11/25/19 20:15 11/27/19 10:56 Diphenhydramine HCl (Benadryl) 25 mg Q6H PO 11/26/19 00:00 11/27/19 05:05 Enoxaparin Sodium (Lovenox) 40 mg DAILY SC 11/26/19 09:00 Home Med (Med Rec Complete!) ASDIRECTED XX 11/25/19 15:45 11/25/19 15:39 DC Hydrocortisone (Hydrocortisone 1% Cream) APPLY TO AFFECTE AREA(S)... DAILY TOP 11/27/19 09:00 11/27/19 08:25 Prednisone (Deltasone) 40 mg DAILY PO 11/26/19 09:00 11/27/19 08:24 Sodium Chloride 1,000 ml @ 125 mls/hr Q8H IV 11/25/19 15:15 11/26/19 09:08 DC 11/26/19 00:13 Vancomycin HCl 1000 mg/IV Miscellaneous Supplies 1 each/ Dextrose 270 ml @ 270 mls/hr Q12H IV 11/25/19 17:00 11/25/19 18:07 DC Allergies Coded Allergies: Contrast Media (Verified Allergy, Severe, anaphylaxis, 11/20/19) cephalexin (Verified Allergy, Intermediate, rash, 11/20/19) pt reports had has dose of this recently and did not break out in a rash, but did feel itchy TAPE (Verified Allergy, Mild, RASH, 11/20/19) clindamycin (Verified Allergy, Unknown, RASH/ITCH, 11/25/19) Objective Physical Examination Examination GENERAL APPEARANCE:Patient seen, laying in bed, awake, alert, and oriented. Comfortable, in no acute distress. SKIN: Warm and moist. Red rash neck, chest, back, abdomen, upper and lower e xtremities. BREAST: Right and left soft, non-tender incisions intact. EDUARDO drains: L 04/29, R 50/60cc/24 hr. Staff Auditor palpable. Flaps viable, soft. LUNGS: Clear to auscultation bilaterally. No wheezing appreciated. HEART: No chest wall abnormalities. Regular rate and rhythm with no murmurs appreciated. ABDOMEN: Abdomen is soft, non-tender, non-distended. EXTREMITIES: No edema identified. No calf tenderness. Vital Signs Vital Signs Date Time Temp Pulse Resp B/P (MAP) Pulse Ox O2 Delivery O2 Flow Rate FiO2 11/27/19 05:56 98.0 77 17 157/89 (111) 95 Room Air I&Os I&O- Last 24 Hours up to 6 AM 11/27/19 06:00 Intake Total 2120 ml Output Total 152 ml Balance 1968 ml Laboratory Data Labs 24H Laboratory Tests 2 11/27/19 05:04: Nucleated Red Blood Cells % (auto) 0.0, Anion Gap 9, Glomerular Filtration Rate > 60.0, Calcium Level 8.0L CBC/BMP Laboratory Tests 11/27/19 05:04 Impression Acute allergic reaction. Continue with Prednisone, Benadryl. Slowly improving. Blood cultures. Monitor EDUARDO drains, output improving. No evidence of bleeding. Will continue to follow. Plan / VTE VTE Prophylaxis Ordered?: Yes UMAIR KOROMA DO November 27, 2019 13:01
[2019-11-27 14:05] VITALS: BP 122/75
[2019-11-27 22:00] VITALS: BP 160/91
[2019-11-28] MEDS: diphenhydrAMINE 25MG CAP PO SCH ×2 (00:31→05:43)
[2019-11-28] MEDS: ACETAMINOPHEN TAB 650MG DOSE (2X325MG) PO PRN ×2 (00:31→05:43)
[2019-11-28 06:00] VITALS: BP 121/73
[2019-11-28] MEDS ORDERED: PRED20TA PO (07:41)
[2019-11-28] MEDS: predniSONE 20 MG TAB PO SCH (08:19)
[2019-11-28] MEDS: ENOXAPARIN 40MG/0.4ML SYRINGE (J1650 PER 10MG) SC SCH (08:20)
[2019-11-28] MEDS: HYDROCORTISONE 1% CREAM 30 GM TOP SCH (08:35)
--- NOTE | 2019-11-28 09:28 | DSES ---
DATE OF ADMISSION: 11/25/2019 DATE OF DISCHARGE: CONSULTANTS: Dr. Candy Roy PRINCIPAL DIAGNOSIS: Allergic reaction probably to clindamycin. SECONDARY DIAGNOSES: Status post bilateral mastectomy 11/20/2019. History of supraventricular tachycardia (SVT). History of prediabetes. History of gastroesophageal reflux disease (GERD). HISTORY: The patient had an allergic reaction probably to clindamycin with morbilliform macular papular rash. Details are in history and physical of admission. HOSPITAL COURSE: She was admitted to the medical bed. Treated with prednisone and Benadryl. She said the rash progressed over the first 2 days in the hospital, then plateaued, and is regressing today. She had development of conjunctival oral or urogenital lesions suggesting George-Aftab syndrome. Labs are in the previous dictations. Her white count remained around 14.7 on steroids, and the renal function remained normal. DISPOSITION: She was discharged home in improved and stable condition. Her Pedro-Monk drains have minimal drainage and she has been seen by the leasing consultant as recently yesterday. She will be discharged on prednisone 20 mg daily for 3 days, then discontinued, Benadryl 25 mg every 6 hours as needed, Tylenol as needed. Followup with primary care provider and followup with leasing consultant per their office. No pending labs at this time.
--- NOTE | 2019-11-28 09:37 | IPNPDOC ---
Subjective General Date Seen: November 28, 2019 Subject Chief Complaint/History The patient is a 49-year-old female admitted with a reason for visit of Allergic Reactions. Patient s/p bilateral mastectomy with travel registered nurse icu reconstruction DOS 11/20/19. Patient developed allergic reaction to antibiotics. Now doing much better. Rash is improving, less red. No itching. Current Medications Current Medications Current Medications Medications (Trade) Dose Ordered Sig/Jeb Route PRN Reason Start Time Stop Time Status Last Admin Dose Admin Acetaminophen (Tylenol Tab) 650 mg Q4HP PRN PO PAIN OR FEVER 11/25/19 20:15 11/28/19 05:43 Diphenhydramine HCl (Benadryl) 25 mg Q6H PO 11/26/19 00:00 11/28/19 05:43 Enoxaparin Sodium (Lovenox) 40 mg DAILY SC 11/26/19 09:00 Home Med (Med Rec Complete!) ASDIRECTED XX 11/25/19 15:45 11/25/19 15:39 DC Hydrocortisone (Hydrocortisone 1% Cream) APPLY TO AFFECTE AREA(S)... DAILY TOP 11/27/19 09:00 11/28/19 08:35 Prednisone (Deltasone) 40 mg DAILY PO 11/26/19 09:00 11/28/19 08:19 Sodium Chloride 1,000 ml @ 125 mls/hr Q8H IV 11/25/19 15:15 11/26/19 09:08 DC 11/26/19 00:13 Vancomycin HCl 1000 mg/IV Miscellaneous Supplies 1 each/ Dextrose 270 ml @ 270 mls/hr Q12H IV 11/25/19 17:00 11/25/19 18:07 DC Allergies Coded Allergies: Contrast Media (Verified Allergy, Severe, anaphylaxis, 11/20/19) cephalexin (Verified Allergy, Intermediate, rash, 11/20/19) pt reports had has dose of this recently and did not break out in a rash, but did feel itchy TAPE (Verified Allergy, Mild, RASH, 11/20/19) clindamycin (Verified Allergy, Unknown, RASH/ITCH, 11/25/19) Objective Physical Examination Examination GENERAL APPEARANCE:Patient seen, laying in bed, awake, alert, and oriented. Comfortable, in no acute distress. SKIN: Warm and moist. Red rash much improved. Neck resolved. Upper chest/breast resolved. Abdomen and extremities resolving. BREAST: Right and left soft, non-tender incisions intact. EDUARDO drains: L 20/15, R 25/50 cc/24 hr. NECK: Supple, no thyromegaly. No obvious jugular venous distention. LUNGS: Clear to auscultation bilaterally. No wheezing appreciated. HEART: No chest wall abnormalities. Regular rate and rhythm with no murmurs appreciated. ABDOMEN: Abdomen is soft, non-tender, non-distended. EXTREMITIES: No edema identified. No calf tenderness. Vital Signs Vital Signs Date Time Temp Pulse Resp B/P (MAP) Pulse Ox O2 Delivery O2 Flow Rate FiO2 11/28/19 06:00 98.5 87 16 121/73 (89) 96 Room Air I&Os I&O- Last 24 Hours up to 6 AM 11/28/19 06:00 Intake Total 1890 ml Output Total 65 ml Balance 1825 ml Impression Allergic rash. Improving. Breast incisions intact, output improving. Continue with EDUARDO wound monitoring at home. Prednisone per medical Rx. Patient to follow up with Dr Ramachandran next week. Instructions given. No wetting breast/EDUARDO drain area. Plan / VTE VTE Prophylaxis Ordered?: Yes UMAIR KOROMA DO November 28, 2019 09:37
== END 2019-11-28 10:42 | disposition home or self-care (01) | DRG 381 ==
LOC: M MS5PR 13:42
PROVIDERS: ADMIT Internal Medicine; ATTEND General Practice
DX: L51.8 Other erythema multiforme (principal); C50.919 Malignant neoplasm of unspecified site of unspecified female breast; K21.9 Gastro-esophageal reflux disease without esophagitis; T36.8X5A Adverse effect of other systemic antibiotics, initial encounter; R73.03 Prediabetes; Z90.11 Acquired absence of right breast and nipple; Z90.12 Acquired absence of left breast and nipple; Z79.899 Other long term (current) drug therapy; Z91.041 Radiographic dye allergy status; Z88.8 Allergy status to other drugs, medicaments and biological substances; G47.30 Sleep apnea, unspecified

== ENCOUNTER → 2019-12-23 | Outpatient (CLI) | payer BC ==
[~2019-12-23] MED LIST changes: +DECA4TAB PO; +DIPH25CA32 PO; +EXCETAB22 PO; +HYDR-3363 PO; +KETO10TAB PO; +LEVO500T3 PO; +OMEGCAP4 PO; +ONDA8TAB10 PO; +OXYC1TAB23 PO; +PRED20TA PO
--- NOTE | 2019-12-23 15:07 | ROOPDOC ---
[facility] Report Of Operation Report of Operation DATE OF PROCEDURE: 12/23/19 PREPROCEDURE DIAGNOSES: Bilateral postmastectomy seroma POSTPROCEDURE DIAGNOSES: Bilateral postmastectomy seroma. PROCEDURE: Bilateral seroma aspiration with ultrasound guidance. SURGEON: Karyn Benavidez BARTENDER: ANESTHESIA: Local anesthetic was used. ESTIMATED BLOOD LOSS: Approximately 1 mL. COMPLICATIONS: None. REMARKS: 30 mL of serous fluid was aspirated from right breast seroma. Right Tissue continuous yarn dyeing machine operator is intact. 80 mL of serous fluid was aspirated from the left breast seroma. Left Tissue expanders intact. DESCRIPTION OF PROCEDURE: PREOP DX: bilateral breast fluid collection POSTOP DX: bilateral breast fluid collection PROCEDURE:Ultrasound guided aspiration of right mastectomy fluid collection Informed consent was obtained. The most common risk and possible complications including bleeding, hematoma, bruising, infection, injury to surrounding structures and tissue expanders were explained to the patient and she expressed understanding. Patient was positioned on the bed in the supine position.Appropriate time out was done stating patient's name, date of , and the procedure to be performed. Procedure was started on the right side. The right chest wall was prepped and draped in the usual fashion.Ultrasound was used to assure safe pathway of seroma aspiration. Intact tissue continuous yarn dyeing machine operator was visualized under the muscle. Plain Lidocaine 1% and 8.4% sodium bicarbonate 10:1 mix was used to anesthetize the patient's skin at the site of fluid collection. 18G angio-catheter was used to access the fluid collection under sonographic guidance. Needle tip was kept in the visual field at all times. Needle was removed after the fluid pocket was accessed and only flexible catheter was kept in place to aspirate the fluid. Total of 30 cc of serous fluid was aspirated. The fluid was aspirated completely and the seroma cavity collapsed.Fluid was sent for cultures and gram stain. Pressure was held at the site of aspiration and hemostasis was achieved. Dressing was placed over the site of aspiration. Our attention was then shifted to the left side. The left chest wall was prepped and draped in the usual fashion. Ultrasound was used to assure safe pathway of seroma aspiration.Intact tissue continuous yarn dyeing machine operator was visualized under the muscle. Plain Lidocaine 1% and 8.4% sodium bicarbonate 10:1 mix was used to anesthetize the skin at the site of fluid collection. 18G angio-catheter was used to access the fluid collection under sonographic guidance. Needle tip was kept in the visual field at all times. Needle was removed after the fluid pocket was accessed and only flexible catheter was kept in place to withdraw the fluid. Total of 80 cc of serous fluid was aspirated. The fluid was aspirated completely and the seroma cavity collapsed.Fluid was sent for cultures and gram stain. Pressure was held at the site of aspiration and hemostasis was achieved. Dressing was placed over the site of aspiration and chest wall was wrapped with DONATO wrap. Patient tolerated procedure well. Discharge instructions were discussed with the patient and she expressed understanding. KARYN BENAVIDEZ DO Dec 23, 2019 15:07
[2019-12-23 16:02] VITALS: BP 112/78
== END ==
LOC: M WHCPRO 15:39
PROVIDERS: ATTEND Surgery
DX: L76.34 Postprocedural seroma of skin and subcutaneous tissue following other procedure (principal); C50.911 Malignant neoplasm of unspecified site of right female breast; C50.912 Malignant neoplasm of unspecified site of left female breast

== ENCOUNTER → 2019-12-23 | Outpatient (CLI) | payer BC ==
--- NOTE | 2019-12-23 15:07 | ROOPDOC ---
[facility] Report Of Operation Report of Operation DATE OF PROCEDURE: 12/23/19 PREPROCEDURE DIAGNOSES: Bilateral postmastectomy seroma POSTPROCEDURE DIAGNOSES: Bilateral postmastectomy seroma. PROCEDURE: Bilateral seroma aspiration with ultrasound guidance. SURGEON: Karyn Benavidez LEGAL ADVISER: ANESTHESIA: Local anesthetic was used. ESTIMATED BLOOD LOSS: Approximately 1 mL. COMPLICATIONS: None. REMARKS: 30 mL of serous fluid was aspirated from right breast seroma. Right Tissue marine fireman is intact. 80 mL of serous fluid was aspirated from the left breast seroma. Left Tissue expanders intact. DESCRIPTION OF PROCEDURE: PREOP DX: bilateral breast fluid collection POSTOP DX: bilateral breast fluid collection PROCEDURE:Ultrasound guided aspiration of right mastectomy fluid collection Informed consent was obtained. The most common risk and possible complications including bleeding, hematoma, bruising, infection, injury to surrounding structures and tissue expanders were explained to the patient and she expressed understanding. Patient was positioned on the bed in the supine position.Appropriate time out was done stating patient's name, date of , and the procedure to be performed. Procedure was started on the right side. The right chest wall was prepped and draped in the usual fashion.Ultrasound was used to assure safe pathway of seroma aspiration. Intact tissue marine fireman was visualized under the muscle. Plain Lidocaine 1% and 8.4% sodium bicarbonate 10:1 mix was used to anesthetize the patient's skin at the site of fluid collection. 18G angio-catheter was used to access the fluid collection under sonographic guidance. Needle tip was kept in the visual field at all times. Needle was removed after the fluid pocket was accessed and only flexible catheter was kept in place to aspirate the fluid. Total of 30 cc of serous fluid was aspirated. The fluid was aspirated completely and the seroma cavity collapsed.Fluid was sent for cultures and gram stain. Pressure was held at the site of aspiration and hemostasis was achieved. Dressing was placed over the site of aspiration. Our attention was then shifted to the left side. The left chest wall was prepped and draped in the usual fashion. Ultrasound was used to assure safe pathway of seroma aspiration.Intact tissue marine fireman was visualized under the muscle. Plain Lidocaine 1% and 8.4% sodium bicarbonate 10:1 mix was used to anesthetize the skin at the site of fluid collection. 18G angio-catheter was used to access the fluid collection under sonographic guidance. Needle tip was kept in the visual field at all times. Needle was removed after the fluid pocket was accessed and only flexible catheter was kept in place to withdraw the fluid. Total of 80 cc of serous fluid was aspirated. The fluid was aspirated completely and the seroma cavity collapsed.Fluid was sent for cultures and gram stain. Pressure was held at the site of aspiration and hemostasis was achieved. Dressing was placed over the site of aspiration and chest wall was wrapped with DONATO wrap. Patient tolerated procedure well. Discharge instructions were discussed with the patient and she expressed understanding. KARYN BENAVIDEZ DO Dec 23, 2019 15:07
== END ==
LOC: M WHC 15:03
PROVIDERS: ATTEND Surgery
DX: N64.89 Other specified disorders of breast (principal)

== ENCOUNTER → 2019-12-23 | Outpatient (REF) | payer BC ==
[~2019-12-23] MED LIST changes: +ACET-683 PO; +AMOX875T2 PO; +ANAS1TAB2 PO; +BACT800T5 PO; +CIPR-249 PO; -CLIN300C5 PO; +CLIN300C6 PO; +FLAG500T PO; +GABA-282 PO; +META0.52 PO; +METR-265 PO; +MULT-90 PO; +NAPR-885 PO; +RISATAB3 PO; +ROSU20TA5
== END ==
LOC: M SFHCWAGY 09:30
PROVIDERS: ATTEND Surgery
DX: N64.89 Other specified disorders of breast (principal)

== ENCOUNTER → 2020-01-28 | Outpatient (CLI) | payer BC ==
[~2020-01-28] MED LIST changes: -ANAS1TAB2 PO; -BACT800T5 PO; +CLIN300C5 PO; -CLIN300C6 PO; -FLAG500T PO; -GABA-282 PO; +GABA-843 PO; +LIDOCAINE 1% MDV 20ML VIAL ONE; -META0.52 PO; -MULT-90 PO; -ROSU20TA5; +ceFAZolin 1GM VIAL (J0690 PER 500MG) ONE; +ceFAZolin 2 GM/D5W 50 ML IV BAG (J0690 PER 500MG) ONE
[2020-01-28 14:22] VITALS: BP 118/76
--- NOTE | 2020-01-28 16:54 | REP ---
PICC line insertion under ultrasound guidance. The procedure was performed by SOM Pitt, under the direct supervision of Dr. Cope. The risks and benefits of the procedure were explained to the patient and informed consent was obtained both verbally and written. Directly prior to the start of the procedure, a formal timeout was completed in the procedure room. The left basilic vein was localized using ultrasound guidance. The skin was prepped and draped in the sterile fashion. 1 ml 1% lidocaine 10 mg/ml was used as a local anesthetic. Using ultrasound guidance the left basilic vein was cannulated and a 0.018 guidewire was inserted and advanced to the SVC using fluoroscopic guidance. The needle was removed and a 4.5 [place] dilator and peel-away sheath was inserted over the guidewire. A or 0.5 [place] Citizen single lumen catheter was cut to the length of 35 cm. The dilator was removed and the catheter was inserted over the guide wire with the tip ending in the SVC. The peel-away sheath was removed and the catheter was flushed with heparinized saline as per hospital protocol. The catheter was affixed to the skin and a sterile dressing was applied. The patient tolerated the procedure well and there were no immediate complications. 0.1 minutes of fluoroscopy time was utilized for this procedure. Some fluoroscopic images are performed with last image hold technology. These images require no additional radiation. Reviewed by SOM Spain 01/28/2020 04:02 P Electronically Signed by Ranjith Cope MD 01/28/2020 04:44 P
== END ==
LOC: M IRPRO 13:44
PROVIDERS: ATTEND Internal Medicine Hematology & Oncology
DX: C50.919 Malignant neoplasm of unspecified site of unspecified female breast (principal)
CPT/HCPCS: 36571; 76937; C1751; J0690; J1642; J1644

== ENCOUNTER → 2020-02-17 | Outpatient (POV) | payer BC ==
[~2020-02-17] MED LIST changes: -LIDOCAINE 1% MDV 20ML VIAL ONE; -ceFAZolin 1GM VIAL (J0690 PER 500MG) ONE; -ceFAZolin 2 GM/D5W 50 ML IV BAG (J0690 PER 500MG) ONE
--- NOTE | 2020-03-11 14:39 | IRPN ---
[facility] IR Progress Note IR Progress Note DATE: Feb 17, 2020 Patient did not have a port placed. Patient had to have a PICC line placed instead, due to bilateral mastectomy and axillary lymph node dissection. Patient had a PICC line placed by [facility] and is receiving therapies via her PICC line. No further follow-up scheduled with IR. Please do not bill for this visit as it was scheduled incorrectly. Allergies Coded Allergies: Contrast Media (Verified Allergy, Severe, anaphylaxis, 11/20/19) cephalexin (Verified Allergy, Intermediate, rash, 11/20/19) pt reports had has dose of this recently and did not break out in a rash, but did feel itchy TAPE (Verified Allergy, Mild, RASH, 11/20/19) clindamycin (Verified Allergy, Unknown, RASH/ITCH, 11/25/19) oxycodone (Verified Allergy, Unknown, RASH, 03/11/20) tapentadol (Verified Adverse Reaction, Unknown, N/V, 03/11/20) ANJALI VINCENT MD Mar 11, 2020 14:39
== END ==
LOC: M TMIRPOV 09:00
PROVIDERS: ATTEND Radiology Diagnostic Radiology
DX: C50.919 Malignant neoplasm of unspecified site of unspecified female breast (principal); Z90.13 Acquired absence of bilateral breasts and nipples; Z88.1 Allergy status to other antibiotic agents; Z88.5 Allergy status to narcotic agent; Z91.041 Radiographic dye allergy status; Z91.048 Other nonmedicinal substance allergy status

== ENCOUNTER 2020-03-11 10:39 | Inpatient (IN) | payer BC ==
[~2020-03-11] VITALS: Ht 157.5 cm; Wt 77.5 kg
[~2020-03-11 10:39] MED LIST changes: -ACET-683 PO; -AMOX875T2 PO; -CIPR-249 PO; -METR-265 PO; -NAPR-885 PO; -RISATAB3 PO
[2020-03-11] MEDS ORDERED: NAPR-885 PO (11:07)
[2020-03-11] MEDS ORDERED: ONDANSETRON 4MG/2ML VIAL IV ONE (11:15)
[2020-03-11] MEDS ORDERED: NS 1,000 ML IV SCH (11:15)
--- NOTE | 2020-03-11 11:49 | REPVR ---
PROCEDURE INFORMATION: Exam: CT Abdomen And Pelvis Without Contrast Exam date and time: 03/11/2020 11:21 AM Age: 49 years old Clinical indication: Abdominal pain; Additional info: Abd pain TECHNIQUE: Imaging protocol: Computed tomography of the abdomen and pelvis without contrast. Radiation optimization: All CT scans at this facility use at least one of these dose optimization techniques: automated exposure control; mA and/or kV adjustment per patient size (includes targeted exams where dose is matched to clinical indication); or iterative reconstruction. COMPARISON: CT ABD PELVIS W/O CONTRAST 05/27/2019 3:51 AM FINDINGS: Lungs: There is new atelectasis in each lung base more on left. Mediastinal space: There is a small stable paraesophageal hernia. Liver: The liver is enlarged at 202 mm. Gallbladder and bile ducts: Normal. No calcified stones. No ductal dilation. Pancreas: Normal. No ductal dilation. Spleen: Normal. No splenomegaly. Adrenals: Normal. No mass. Kidneys and ureters: Nonobstructing small left renal stones are noted. Stomach and bowel: There is no evidence of diverticulitis. There are surgical clips seen near the base of the cecum. The appendix is seen is unremarkable. Small bowel loops are identified measuring up 25 mm. Appendix: See "Stomach and bowel" finding. Intraperitoneal space: There is free intraperitoneal air. There are numerous colonic diverticula. There is a small amount of pelvic fluid. There is a pocket of air in the retroperitoneal space on image 201/6. Vasculature: Unremarkable. No abdominal aortic aneurysm. Lymph nodes: Unremarkable. No enlarged lymph nodes. Bladder: Unremarkable as visualized. Reproductive: Unremarkable as visualized. Bones/joints: Unremarkable. No acute fracture. Soft tissues: There is an incompletely seen new left mammographic implant. There has been interval right mastectomy. IMPRESSION: 1. Free intraperitoneal air. 2. Status post bilateral mastectomy with a left mammographic implant. 3. Slightly prominent small bowel loops. 4. Indistinctness in the right lower quadrant even though there is appendix there are 2 densities in the cecum of unknown etiology. 5. THIS REPORT CONTAINS FINDINGS THAT MAY BE CRITICAL TO PATIENT CARE. The findings were verbally communicated by me to PARVIZ GOMEZ at 11:45 AM EST on 03/11/2020. The findings were acknowledged and understood. Nonobstructing left renal stone. Electronically signed by: Scott Segura On 03/11/2020 11:49:14 AM
[2020-03-11] MEDS ORDERED: PIPERACILLIN/TAZOBACTAM SOD 3.375 GM in D5W MINI-BAG PLUS 50 ML IV ONE (12:00)
[2020-03-11] MEDS: MORPHINE 4 MG/ML 1ML VIAL/SYRINGE (J2270) IV PRN ×2 (12:01→15:59)
[2020-03-11 12:13] LABS: HEMATOCRIT 36.2 % (36.0-47.0); HEMOGLOBIN 11.8 g/dl (12.0-15.5); MEAN CORPUSCULAR HEMOGLOBIN 28.4 pg (27.0-33.0); MEAN CORPUSCULAR HGB CONC 32.6 g/dl (32.0-36.5); PLATELET COUNT, AUTOMATED 277 10^3/uL (150-450); RED BLOOD COUNT 4.16 10^6/uL (4.00-5.40); WHITE BLOOD COUNT 12.8 10^3/uL (4.0-10.0)
[2020-03-11 12:27] LABS: INR 1.33; PROTHROMBIN TIME 16.8 SECONDS (11.8-14.0)
[2020-03-11 12:46] LABS: ALBUMIN 3.1 GM/DL (3.2-5.2); ALT/SGPT 23 U/L (12-78); BILIRUBIN,DIRECT 0.1 MG/DL (0.0-0.2); BILIRUBIN,TOTAL 0.6 MG/DL (0.2-1.0); BLOOD UREA NITROGEN 12 MG/DL (7-18); CALCIUM LEVEL 8.9 MG/DL (8.5-10.1); CARBON DIOXIDE LEVEL 28 MEQ/L (21-32); CHLORIDE LEVEL 103 MEQ/L (98-107); CK-MB VALUE MASS < 1.0 NG/ML (<3.6); CPK CREATINE PHOSPHOKINASE 34 U/L (26-192); CREATININE FOR GFR 0.61 MG/DL (0.55-1.30); GLOMERULAR FILTRATION RATE > 60.0 (>51); GLUCOSE, FASTING 113 MG/DL (70-100); LIPASE 57 U/L (73-393); MB/CK RELATIVE INDEX 2.94 (< OR =4); POTASSIUM SERUM 3.5 MEQ/L (3.5-5.1); SODIUM LEVEL 139 MEQ/L (136-145); TOTAL PROTEIN 6.8 GM/DL (6.4-8.2); TROPONIN I < 0.02 NG/ML (< 0.10)
[2020-03-11 12:46] LABS: LYMPHOCYTES 4 % (16-44); NEUTROPHILS 96 % (28-66)
[2020-03-11 12:47] LABS: ANISOCYTOSIS 1+; PLATELET ESTIMATE NORMAL (NORMAL)
[2020-03-11] MEDS ORDERED: DECA4TAB PO (13:05)
[2020-03-11] MEDS ORDERED: ONDA8TAB10 PO (13:08)
[2020-03-11] MEDS ORDERED: metroNIDAZOLE 500 MG in IV 1 EA IV SCH (13:45)
[2020-03-11] MEDS ORDERED: CIPROFLOXACIN 400 MG in IV 1 EA IV SCH (13:45)
--- NOTE | 2020-03-11 14:41 | HPEPDOC ---
[facility] Medical History & Physical Date of Admission Mar 11, 2020 Date of Service: Mar 11, 2020 Attending Physician: SULY CEE MD History and Physical CHIEF COMPLAINT: abdominal pain HISTORY OF PRESENT ILLNESS: 49 yo F with a hx of bilateral breast ca (s/p b/l mastectomy, active chemo), SVTs (s/p ablation 2015), pre-DM2, presented to [facility] ED from breast surgery clinic due to 24 hours of progressively worsening diffuse abdominal pain. She describes the pain as cramping, intermittent. She has not had a BM for 3 days. Denies fevers, chills, n/v/d. She denies melena, hematochezia or hematemesis. Afebrile in the ED. BP normotensive. CT abdo showing free air. WBC 12.8. General surgery Dr. Lau was contacted and consulted. Patient is admitted for management of complicated diverticulitis. PAST MEDICAL HISTORY: 1. bilateral breast ca 2. pre-dm 3. SVT s/p ablation 2015 PAST SURGICAL HISTORY: 1. bilateral mastectomy 2. 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 REVIEW OF SYSTEMS: CONSTITUTIONAL: none HEENT: none. CARDIOVASCULAR: none. RESPIRATORY: none. GASTROINTESTINAL: diffuse cramping abdo pain, no hematemesis, no melena, no n/v/d. GENITOURINARY: none. SKIN: none. MUSCULOSKELETAL: none. NEUROLOGICAL: none. PSYCHIATRIC: none. ENDOCRINE: none. HEMATOLOGIC/LYMPHATIC: none. HOME MEDICATIONS: Please see below. PHYSICAL EXAMINATION: VITAL SIGNS: please see below GENERAL APPEARANCE: NAD, comfortable ined HEENT: PERRLA, EOMI. CARDIOVASCULAR: sinus tachy, regular, normal S1, S2. LUNGS: lungs CTAB. ABDOMEN: distended, firm but not rigid, no rebound, no involuntary guarding. MUSCULOSKELETAL: no joint deformity. EXTREMITIES: no ededa. NEUROLOGICAL: no focal neuro deficits. PSYCHIATRIC: calm, cooperative, AAO x 3. LABORATORY DATA: See below. IMAGING: CT abdo w/o contrast (03/11/20) IMPRESSION: 1. Free intraperitoneal air. 2. Status post bilateral mastectomy with a left mammographic implant. 3. Slightly prominent small bowel loops. 4. Indistinctness in the right lower quadrant even though there is appendix there are 2 densities in the cecum of unknown etiology. 5. THIS REPORT CONTAINS FINDINGS THAT MAY BE CRITICAL TO PATIENT CARE. The findings were verbally communicated by me to SAMMSamuelVITALE PARVIZ at 11:45 AM EST on 03/11/2020. The findings were acknowledged and understood. Nonobstructing left renal stone. MICROBIOLOGY: Please see below. ASSESSMENT: 49 yo F with a hx of bilateral breast ca (s/p b/l mastectomy, active chemo), SVTs (s/p ablation 2015), pre-DM2, admitted for complicated diverticulitis with bowel perforation. . PLAN: 1. Complicated diverticulitis: gen surgery consulted d/w Dr. Lau. Free air appears contained. No surgery at this time, however not ruled out on this admission. Monitor. Trend WBC. Zosyn. NPO. IVF NS 100 cc/hr. Serial abdo exams. Vitals Q4h. Admit to PCU. 2. Bilateral breats ca: follows with Dr. Zuniga. Dr. Ramachandran. Bilateral breat ca. L breat DCIS ER/WV positive. R breast invasive ductal ca ER/WV positive. Active chemotherapy. Received cycle 2 03/08/20. 3. Pre-DM2: check a1c, pcp follow up. CC diet when PO. DVT ppx: lovenox. Vital Signs Vital Signs Date Time Temp Pulse Resp B/P (MAP) Pulse Ox O2 Delivery O2 Flow Rate FiO2 03/11/20 13:59 98.3 03/11/20 13:39 104 20 91 Room Air 03/11/20 13:31 98/56 (70) Laboratory Data Labs 24H Laboratory Tests 2 03/11/20 11:54: Anion Gap 8, Glomerular Filtration Rate > 60.0, Lactic Acid Level 1.4, Calcium Level 8.9, Total Bilirubin 0.6, Direct Bilirubin 0.1, Aspartate Amino Transf (AST/SGOT) 9, Alanine Aminotransferase (ALT/SGPT) 23, Alkaline Phosphatase 68, Total Creatine Kinase 34, Creatine Kinase MB < 1.0, Creatine Kinase MB Relative Index 2.94, Troponin I < 0.02, Total Protein 6.8, Albumin 3.1L, Albumin/Globulin Ratio 0.8L, Lipase 57L 03/11/20 12:00: Neutrophils (%) (Auto) , Nucleated Red Blood Cells % (auto) 0.0, Neutrophils 96H, Lymphocytes (Manual) 4L, Anisocytosis 1+, Platelet Estimate NORMAL, Prothrombin Time 16.8H, Prothromb Time International Ratio 1.33 CBC/BMP Laboratory Tests 03/11/20 11:54 03/11/20 12:00 Home Medications Scheduled Cholecalciferol (Vitamin D3) (Vitamin D3) 125 Mcg Tablet, 5,000 UNIT PO DAILY Dexamethasone (Decadron) 4 Mg Tablet, 2 TAB PO BID day before , day 1, day 2 of chemotherapy Multivitamin (Multivitamins) 1 Each Capsule, 1 CAP PO DAILY Humacao-3/Dha/Epa/Fish Oil (Humacao-3 Fish Oil 1,000 mg Sfgl) 1,000 Mg Capsule, 1 CAP PO DAILY Scheduled PRN Aspirin/Acetaminophen/Caffeine (Excedrin Migraine Geltab) 1 Each Tablet, 2 TAB PO Q6H PRN for HEADACHE Diphenhydramine HCl (Diphenhydramine HCl) 25 Mg Capsule, 25 MG PO TID PRN for RASH/ITCHING Gabapentin (Gabapentin) 300 Mg Capsule, 300 MG PO QHS PRN for NERVE PAIN Naproxen (Naproxen) 500 Mg Tablet, 500 MG PO BID PRN for PAIN OR FEVER Ondansetron HCl (Ondansetron HCl) 8 Mg Tablet, 8 MG PO TID PRN for NAUSEA OR VOMITING Allergies Coded Allergies: Contrast Media (Verified Allergy, Severe, anaphylaxis, 11/20/19) cephalexin (Verified Allergy, Intermediate, rash, 11/20/19) pt reports had has dose of this recently and did not break out in a rash, but did feel itchy TAPE (Verified Allergy, Mild, RASH, 11/20/19) clindamycin (Verified Allergy, Unknown, RASH/ITCH, 11/25/19) oxycodone (Verified Allergy, Unknown, RASH, 03/11/20) tapentadol (Verified Adverse Reaction, Unknown, N/V, 03/11/20) A-FIB/CHADSVASC A-FIB History Current/History of A-Fib/PAF?: No Current PO Anticoag Therapy: No SULY CEE MD Mar 11, 2020 14:41
[2020-03-11] MEDS: NS 1,000 ML IV SCH (14:45)
[2020-03-11 16:15] VITALS: BP 122/70
[2020-03-11] MEDS ORDERED: NS 1,000 ML IV ONE (17:30)
[2020-03-11] MEDS: ACETAMINOPHEN 650 MG SUPP PR PRN (17:52)
[2020-03-11 18:15] VITALS: BP 142/68
[2020-03-11] MEDS: PIPERACILLIN/TAZOBACTAM SOD 4.5 GM in D5W MINI-BAG PLUS 50 ML IV SCH (18:49)
[2020-03-11 20:00] VITALS: BP 137/70
[2020-03-11] MEDS: MORPHINE 2 MG/ML 1ML VIAL (J2270) IV PRN (22:19)
[2020-03-12] MEDS: PIPERACILLIN/TAZOBACTAM SOD 4.5 GM in D5W MINI-BAG PLUS 50 ML IV SCH ×5 (00:55→23:18)
[2020-03-12 01:15] VITALS: BP 125/61
[2020-03-12] MEDS: NS 1,000 ML IV SCH ×3 (04:11→20:28)
[2020-03-12 05:39] LABS: HEMATOCRIT 32.6 % (36.0-47.0); HEMOGLOBIN 10.4 g/dl (12.0-15.5); MEAN CORPUSCULAR HEMOGLOBIN 28.1 pg (27.0-33.0); MEAN CORPUSCULAR HGB CONC 31.9 g/dl (32.0-36.5); MEAN CORPUSCULAR VOLUME 88.1 fl (80.0-96.0); PLATELET COUNT, AUTOMATED 252 10^3/uL (150-450)
[2020-03-12 06:00] LABS: ALBUMIN 2.2 GM/DL (3.2-5.2); ALT/SGPT 15 U/L (12-78); BILIRUBIN,TOTAL 0.5 MG/DL (0.2-1.0); BLOOD UREA NITROGEN 8 MG/DL (7-18); CALCIUM LEVEL 7.9 MG/DL (8.5-10.1); CARBON DIOXIDE LEVEL 24 MEQ/L (21-32); CHLORIDE LEVEL 107 MEQ/L (98-107); CREATININE FOR GFR 0.51 MG/DL (0.55-1.30); GLOMERULAR FILTRATION RATE > 60.0 (>51); GLUCOSE, FASTING 104 MG/DL (70-100); MAGNESIUM LEVEL 2.2 MG/DL (1.8-2.4); PHOSPHORUS LEVEL 1.9 MG/DL (2.5-4.9); POTASSIUM SERUM 3.2 MEQ/L (3.5-5.1); SODIUM LEVEL 138 MEQ/L (136-145)
[2020-03-12 06:09] LABS: LYMPHOCYTES 8 % (16-44); METAMYELOCYTES 2 % (0-0); MONOCYTES 3 % (0-5); NEUTROPHILS 85 % (28-66)
[2020-03-12 06:10] LABS: PLATELET ESTIMATE NORMAL (NORMAL)
[2020-03-12] MEDS: SODIUM CHLORIDE 0.9% INJ 10 ML SYR IV SCH ×2 (06:10→17:32)
--- NOTE | 2020-03-12 07:08 | IPNPDOC ---
Date Seen The patient was seen on 03/12/20. Progress Note SUBJECTIVE: patient seen and examined at bedside. VSS. Afebrile No acute events overnight. Reports mild to moderate diffuse abdo pain, slightly improved from day prior. OBJECTIVE PHYSICAL EXAMINATION: VITAL SIGNS: Please see below. GENERAL APPEARANCE: NAD, comfortable ined HEENT: PERRLA, EOMI. CARDIOVASCULAR: sinus tachy, regular, normal S1, S2. LUNGS: lungs CTAB. ABDOMEN: distended, firm but not rigid, no rebound, no involuntary guarding. MUSCULOSKELETAL: no joint deformity. EXTREMITIES: no ededa. NEUROLOGICAL: no focal neuro deficits. PSYCHIATRIC: calm, cooperative, AAO x 3. LABORATORY DATA, IMAGING STUDIES, MICROBIOLOGY: Please see below. CT abdo w/o contrast (03/11/20) IMPRESSION: 1. Free intraperitoneal air. 2. Status post bilateral mastectomy with a left mammographic implant. 3. Slightly prominent small bowel loops. 4. Indistinctness in the right lower quadrant even though there is appendix there are 2 densities in the cecum of unknown etiology. 5. Nonobstructing left renal stone. DVT prophylaxis ordered?: Y, lovenox ASSESSMENT: 49 yo F with a hx of bilateral breast ca (s/p b/l mastectomy, active chemo), SVTs (s/p ablation 2015), pre-DM2, admitted for complicated diverticulitis with bowel perforation. PLAN: 1. Complicated diverticulitis: gen surgery consulted d/w Dr. Lau. Free air appears contained. No surgery at this time, however not ruled out on this admission. Monitor. WBC trended down (7.0). Zosyn. NPO. IVF NS 100 cc/hr. Serial abdo exams. Vitals Q4h. Admit to PCU. 2. Bilateral breats ca: follows with Dr. Zuniga. Dr. Ramachandran. Bilateral breat ca. L breat DCIS ER/FL positive. R breast invasive ductal ca ER/FL positive. Active chemotherapy. Received cycle 2 03/08/20. 3. Pre-DM2: check a1c, pcp follow up. CC diet when PO. 4. Low K: replace. DVT ppx: lovenox. Abx: Zosyn 03/11/20 - Dispo: DC home when medically stable. VS, I&O, 24H, Fishbone Vital Signs/I&O Vital Signs Date Time Temp Pulse Resp B/P (MAP) Pulse Ox O2 Delivery O2 Flow Rate FiO2 03/12/20 01:15 99.3 115 16 125/61 (82) 93 Room Air I&O- Last 24 Hours up to 6 AM 03/12/20 05:59 Intake Total 2525 ml Output Total 1250 ml Balance 1275 ml Laboratory Data 24H LABS Laboratory Tests 2 03/11/20 11:54: Anion Gap 8, Glomerular Filtration Rate > 60.0, Lactic Acid Level 1.4, Calcium Level 8.9, Total Bilirubin 0.6, Direct Bilirubin 0.1, Aspartate Amino Transf (AST/SGOT) 9, Alanine Aminotransferase (ALT/SGPT) 23, Alkaline Phosphatase 68, Total Creatine Kinase 34, Creatine Kinase MB < 1.0, Creatine Kinase MB Relative Index 2.94, Troponin I < 0.02, Total Protein 6.8, Albumin 3.1L, Albumin/Globulin Ratio 0.8L, Lipase 57L 03/11/20 12:00: Neutrophils (%) (Auto) , Nucleated Red Blood Cells % (auto) 0.0, Neutrophils 96H, Lymphocytes (Manual) 4L, Anisocytosis 1+, Platelet Estimate NORMAL, Prothrombin Time 16.8H, Prothromb Time International Ratio 1.33 03/12/20 05:01: Anion Gap 7L, Glomerular Filtration Rate > 60.0, Calcium Level 7.9L, Total Bilirubin 0.5, Aspartate Amino Transf (AST/SGOT) 8, Alanine Aminotransferase (ALT/SGPT) 15, Alkaline Phosphatase 57, Total Protein 6.0L, Albumin 2.2#L, Albumin/Globulin Ratio 0.6L, Neutrophils (%) (Auto) , Nucleated Red Blood Cells % (auto) 0.0, Neutrophils 85H, Lymphocytes (Manual) 8L, Platelet Estimate NORMAL, Immature Granulocyte % (Auto) , Band Neutrophils 2, Monocytes (Manual) 3, Metamyelocytes 2H, Red Blood Cell Morphology NORMAL, Phosphorus Level 1.9L, Magnesium Level 2.2 CBC/BMP Laboratory Tests 03/11/20 11:54 03/11/20 12:00 03/12/20 05:01 SULY CEE MD Mar 12, 2020 07:08
[2020-03-12 08:00] VITALS: BP 106/60
[2020-03-12] MEDS: ENOXAPARIN 40MG/0.4ML SYRINGE (J1650 PER 10MG) SC SCH (08:25)
[2020-03-12] MEDS: KCL 10MEQ/100ML SWI (KRUN) 10 MEQ in IV 1 EA IV SCH ×3 (08:25→12:46)
--- NOTE | 2020-03-12 09:32 | CR ---
DATE OF CONSULTATION: 03/11/2020 REASON FOR CONSULTATION: Perforated viscus. HISTORY OF PRESENT ILLNESS: The patient is a 49-year-old female who presented to the Emergency Room with complaints of generalized abdominal pain and nausea. She has a history of nausea because she is currently undergoing chemotherapy for bilateral breast cancer. Her pain started yesterday morning, got progressively worse throughout the day, started epigastric area and then moved down towards the left lower side. Then when she became nauseous in the evening she took some Zofran to help with that. Today her symptoms were persistent. They are not improving so she came into the E.R. for evaluation. Her white count was slightly high at 13, however she also had labs prior to her chemo this past Sunday and her white count was 19.9 then, so she is slightly improved from that point. She denies any fevers or chills. Her last bowel movement was Sunday and was normal. She does have a history of diverticulitis in the past that was always treated with antibiotics. She never had any hospitalizations for it and no prior colonoscopy either. She does have some abdominal tenderness currently and she did say that the bumps in the car ride on the way over here were tender as well. But again, no current fevers. PAST MEDICAL HISTORY: The patient's past medical history is significant for: 1. Bilateral breast cancer. 2. SVT. 3. GERD. 4. Pre-diabetes. 5. Diverticulitis. PAST SURGICAL HISTORY: The patient's past surgical history is significant for: 1. Bilateral mastectomies. 2. Cardiac ablation. 3. She also had removal of a tissue bead wrapper from the right breast that became infected after her immediate reconstruction from her mastectomy. SOCIAL HISTORY: Denies drug, alcohol or tobacco abuse. FAMILY HISTORY: Noncontributory. ALLERGIES: - Contrast media tape. - Allopurinol. - Keflex. - Clindamycin. HOME MEDICATIONS: Please see medication rec. REVIEW OF SYSTEMS: Pertinent positives and negatives stated in the HPI. PHYSICAL EXAMINATION: GENERAL APPEARANCE: Alert and oriented x3, in no acute distress. VITAL SIGNS: Temperature 98.4, pulse 102, respirations 17, blood pressure 123/68, pulse ox is 97%b on room air. HEENT: Pupils are equal, round and reactive to light and accommodation. HEART: S1, S2, regular rate and rhythm. LUNGS: Clear to auscultation bilaterally. ABDOMEN: Soft, tender in the left lower quadrant mildly, no rebound or guarding. No rigidity. No signs of generalized peritonitis. EXTREMITIES: No clubbing, cyanosis, or edema. LABORATORY DATA: White count is 12.8, hemoglobin 11.8, platelets 277. INR was 1.33, potassium 3.5, creatinine 0.61, lactic acid 1.4. LFTs within normal limits, albumin 3.1. IMAGING DATA: CT abdomen and pelvis was read by V-Rads. I also reviewed the images in person with Dr. Mullins, here on site. There is free air in the abdomen, a very small amount scattered throughout with tiny air bubbles. No large volumes. No large fluid collections. There is slight inflammation in the left lower quadrant near her diverticulosis. No other acute abnormalities. ASSESSMENT AND PLAN: The patient is a 49-year-old female with signs and symptoms of perforated diverticulitis. At this point I gave her the option of surgical intervention which would result in a colostomy versus medical management with IV fluids, antibiotics. Since she is non-peritoneal, her white count is just slightly elevated and she is afebrile. I think it is acceptable to treat her with just antibiotics at this point. However with her chemo, I am not too reliant on her leukocytosis. I explained to her that we will keep a very close eye on her. If she has any signs of fevers, increased abdominal pain, then she needs to let me know immediately and we will consider urgent operation. All of her questions were answered. She understands the risks of postponing surgery. We will keep a close eye on her. CHRISTINE
[2020-03-12] MEDS: MORPHINE 2 MG/ML 1ML VIAL (J2270) IV PRN ×2 (09:46→20:40)
--- NOTE | 2020-03-12 10:14 | IPNPDOC ---
Text Note Date of Service The patient was seen on 03/12/20. NOTE No acute events overnight. Pain is improved minimally. She is able to get up and walk around some. She did have some fevers overnight, but she feels better this am. VSSAF currently NAD abd - soft, mild diffuse tenderness, no rebound or guarding labs - below A) 49y/o female with breast cancer currently going through chemotherapy with complicated diverticulitis with microperforation P) NPO IVF abx monitor labs strict I's and O's serial abd exams Hector Lau DO VS,Bora, I+O VS, Gennye, I+O Laboratory Tests 03/11/20 11:54 03/11/20 12:00 03/12/20 05:01 Vital Signs Date Time Temp Pulse Resp B/P (MAP) Pulse Ox O2 Delivery O2 Flow Rate FiO2 03/12/20 09:46 18 Room Air 03/12/20 08:00 98.6 117 106/60 (75) 95 I&O- Last 24 Hours up to 6 AM 03/12/20 06:00 Intake Total 3570 ml Output Total 1250 ml Balance 2320 ml SARA LAU DO Mar 12, 2020 10:13
[2020-03-12 12:00] VITALS: BP 140/85
[2020-03-12] MEDS: ACETAMINOPHEN 650 MG SUPP PR PRN (12:20)
[2020-03-12] MEDS ORDERED: KCL 10MEQ IN STERILE WATER 100ML As Ordered ONE (12:45)
[2020-03-12 16:00] VITALS: BP 135/4
[2020-03-12 20:00] VITALS: BP 141/78
[2020-03-12] MEDS: ONDANSETRON 4MG/2ML VIAL IV PRN (20:46)
[2020-03-13] VITALS: BP 132/72
[2020-03-13] MEDS: NS 1,000 ML IV SCH ×2 (00:37→16:24)
[2020-03-13] MEDS: MORPHINE 2 MG/ML 1ML VIAL (J2270) IV PRN ×3 (00:43→22:34)
[2020-03-13 04:00] VITALS: BP 136/67
[2020-03-13 04:22] LABS: HEMATOCRIT 31.8 % (36.0-47.0); HEMOGLOBIN 10.3 g/dl (12.0-15.5); MEAN CORPUSCULAR HEMOGLOBIN 28.7 pg (27.0-33.0); MEAN CORPUSCULAR HGB CONC 32.4 g/dl (32.0-36.5); MEAN CORPUSCULAR VOLUME 88.6 fl (80.0-96.0); PLATELET COUNT, AUTOMATED 285 10^3/uL (150-450); RED BLOOD COUNT 3.59 10^6/uL (4.00-5.40); WHITE BLOOD COUNT 2.8 10^3/uL (4.0-10.0)
[2020-03-13 04:42] LABS: ALBUMIN 2.2 GM/DL (3.2-5.2); ALT/SGPT 14 U/L (12-78); BILIRUBIN,TOTAL 0.6 MG/DL (0.2-1.0); BLOOD UREA NITROGEN 9 MG/DL (7-18); CALCIUM LEVEL 8.2 MG/DL (8.5-10.1); CARBON DIOXIDE LEVEL 24 MEQ/L (21-32); CHLORIDE LEVEL 104 MEQ/L (98-107); CREATININE FOR GFR 0.52 MG/DL (0.55-1.30); GLOMERULAR FILTRATION RATE > 60.0 (>51); GLUCOSE, FASTING 90 MG/DL (70-100); MAGNESIUM LEVEL 2.2 MG/DL (1.8-2.4); PHOSPHORUS LEVEL 2.6 MG/DL (2.5-4.9); SODIUM LEVEL 137 MEQ/L (136-145); TOTAL PROTEIN 6.6 GM/DL (6.4-8.2)
[2020-03-13] MEDS: SODIUM CHLORIDE 0.9% INJ 10 ML SYR IV SCH ×2 (05:08→18:01)
[2020-03-13] MEDS: PIPERACILLIN/TAZOBACTAM SOD 4.5 GM in D5W MINI-BAG PLUS 50 ML IV SCH ×3 (05:09→18:01)
[2020-03-13 05:13] LABS: EOSINOPHILS 1 % (0-3); LYMPHOCYTES 21 % (16-44); METAMYELOCYTES 5 % (0-0); NEUTROPHILS 73 % (28-66); PLATELET ESTIMATE NORMAL (NORMAL)
[2020-03-13] MEDS: KCL 10MEQ/100ML SWI (KRUN) 10 MEQ in IV 1 EA IV SCH ×6 (07:19→22:35)
[2020-03-13 08:00] VITALS: BP 145/84
[2020-03-13] MEDS: ENOXAPARIN 40MG/0.4ML SYRINGE (J1650 PER 10MG) SC SCH (09:00)
[2020-03-13 12:00] VITALS: BP 136/72
[2020-03-13 16:00] VITALS: BP 125/75
[2020-03-13] MEDS ORDERED: KCL 10MEQ IN STERILE WATER 100ML As Ordered ONE (16:12)
[2020-03-13] MEDS: ACETAMINOPHEN 650 MG SUPP PR PRN (16:16)
--- NOTE | 2020-03-13 19:13 | IPNPDOC ---
Date Seen The patient was seen on 03/13/20. Progress Note SUBJECTIVE: patient seen and examined at bedside. VSS. Fever yesterday afternoon, low grade temp 99.2 overnight. No acute events overnight. Reports mild to moderate diffuse abdo pain. OBJECTIVE PHYSICAL EXAMINATION: VITAL SIGNS: Please see below. GENERAL APPEARANCE: NAD, comfortable ined HEENT: PERRLA, EOMI. CARDIOVASCULAR: regular, normal S1, S2. LUNGS: lungs CTAB. ABDOMEN: distended, firm but not rigid, no rebound, no involuntary guarding. MUSCULOSKELETAL: no joint deformity. EXTREMITIES: no ededa. NEUROLOGICAL: no focal neuro deficits. PSYCHIATRIC: calm, cooperative, AAO x 3. LABORATORY DATA, IMAGING STUDIES, MICROBIOLOGY: Please see below. CT abdo w/o contrast (03/11/20) IMPRESSION: 1. Free intraperitoneal air. 2. Status post bilateral mastectomy with a left mammographic implant. 3. Slightly prominent small bowel loops. 4. Indistinctness in the right lower quadrant even though there is appendix there are 2 densities in the cecum of unknown etiology. 5. Nonobstructing left renal stone. DVT prophylaxis ordered?: Y, lovenox ASSESSMENT: 49 yo F with a hx of bilateral breast ca (s/p b/l mastectomy, active chemo), SVTs (s/p ablation 2015), pre-DM2, admitted for complicated diverticulitis with bowel perforation. PLAN: 1. SIRS: 2/2 complicated diverticulitis with bowel perforation. Gen surgery consulted. Free air appears contained. Monitor. WBC 2.8, neutropenic (chemo). Low threshold for sepsi. Zosyn. NPO. LR 1L bolus. 100 cc/hr maintenance. Serial abdo exams. Vitals Q4h. Admit to PCU. 2. Bilateral breats ca: follows with Dr. Zuniga. Dr. Ramachandran. Bilateral breat ca. L breat DCIS ER/LA positive. R breast invasive ductal ca ER/LA positive. Active chemotherapy. Received cycle 2 03/08/20. 3. Pre-DM2: check a1c, pcp follow up. CC diet when PO. 4. Low K: replace. 5. Sinus tachycardia: 1L LR bolus. Hypovolemia. Maintenance fluids. DVT ppx: lovenox. Abx: Zosyn 03/11/20 - Dispo: DC home when medically stable. VS, I&O, 24H, Fishbone Vital Signs/I&O Vital Signs Date Time Temp Pulse Resp B/P (MAP) Pulse Ox O2 Delivery O2 Flow Rate FiO2 03/13/20 16:00 98.0 107 20 125/75 (92) 96 Room Air I&O- Last 24 Hours up to 6 AM 03/13/20 06:00 Intake Total 540 ml Output Total 1450 ml Balance -910 ml Laboratory Data 24H LABS Laboratory Tests 2 03/13/20 04:00: Immature Granulocyte % (Auto) , Neutrophils (%) (Auto) , Nucleated Red Blood Cells % (auto) 0.0, Neutrophils 73H, Lymphocytes (Manual) 21, Eosinophils (Manual) 1, Metamyelocytes 5H, Red Blood Cell Morphology NORMAL, Platelet Estimate NORMAL, Anion Gap 9, Glomerular Filtration Rate > 60.0, Calcium Level 8.2L, Phosphorus Level 2.6#, Magnesium Level 2.2, Total Bilirubin 0.6, Aspartate Amino Transf (AST/SGOT) 10, Alanine Aminotransferase (ALT/SGPT) 14, Alkaline Phosphatase 69, Total Protein 6.6, Albumin 2.2L, Albumin/Globulin Ratio 0.5L CBC/BMP Laboratory Tests 03/13/20 04:00 SULY CEE MD Mar 13, 2020 19:13
[2020-03-13] MEDS ORDERED: LR 1,000 ML IV ONE (19:15)
[2020-03-13 20:00] VITALS: BP 123/69
[2020-03-14] VITALS: BP 121/57
[2020-03-14] MEDS: ACETAMINOPHEN 650 MG SUPP PR PRN ×2 (00:30→12:01)
[2020-03-14] MEDS: KCL 10MEQ/100ML SWI (KRUN) 10 MEQ in IV 1 EA IV SCH ×5 (00:31→17:54)
[2020-03-14] MEDS: PIPERACILLIN/TAZOBACTAM SOD 4.5 GM in D5W MINI-BAG PLUS 50 ML IV SCH ×5 (01:49→23:12)
[2020-03-14] MEDS: LR 1,000 ML IV SCH ×4 (01:49→19:50)
[2020-03-14 04:00] VITALS: BP 119/73
[2020-03-14] MEDS: MORPHINE 2 MG/ML 1ML VIAL (J2270) IV PRN ×4 (04:57→23:12)
[2020-03-14] MEDS: SODIUM CHLORIDE 0.9% INJ 10 ML SYR IV SCH ×2 (05:02→19:24)
[2020-03-14 05:39] LABS: HEMATOCRIT 31.7 % (36.0-47.0); HEMOGLOBIN 10.4 g/dl (12.0-15.5); MEAN CORPUSCULAR HEMOGLOBIN 28.2 pg (27.0-33.0); MEAN CORPUSCULAR HGB CONC 32.8 g/dl (32.0-36.5); MEAN CORPUSCULAR VOLUME 85.9 fl (80.0-96.0); PLATELET COUNT, AUTOMATED 285 10^3/uL (150-450); RED BLOOD COUNT 3.69 10^6/uL (4.00-5.40); WHITE BLOOD COUNT 1.4 10^3/uL (4.0-10.0)
[2020-03-14 06:01] LABS: ALBUMIN 2.1 GM/DL (3.2-5.2); ALT/SGPT 14 U/L (12-78); BILIRUBIN,TOTAL 0.7 MG/DL (0.2-1.0); BLOOD UREA NITROGEN 10 MG/DL (7-18); CALCIUM LEVEL 8.1 MG/DL (8.5-10.1); CARBON DIOXIDE LEVEL 23 MEQ/L (21-32); CHLORIDE LEVEL 105 MEQ/L (98-107); CREATININE FOR GFR 0.38 MG/DL (0.55-1.30); GLOMERULAR FILTRATION RATE > 60.0 (>51); GLUCOSE, FASTING 95 MG/DL (70-100); MAGNESIUM LEVEL 2.1 MG/DL (1.8-2.4); POTASSIUM SERUM 3.2 MEQ/L (3.5-5.1); SODIUM LEVEL 137 MEQ/L (136-145); TOTAL PROTEIN 6.4 GM/DL (6.4-8.2)
[2020-03-14 06:12] LABS: ATYPICAL LYMPH 2 % (0-5); LYMPHOCYTES 59 % (16-44); MONOCYTES 5 % (0-5); MYELOCYTES 1 % (0-0); NEUTROPHILS 28 % (28-66)
[2020-03-14 06:13] LABS: ANISOCYTOSIS 1+; PLATELET ESTIMATE NORMAL (NORMAL)
[2020-03-14 06:14] LABS: DOHLE BODIES 1+
[2020-03-14 07:22] VITALS: BP 120/74
[2020-03-14] MEDS: ENOXAPARIN 40MG/0.4ML SYRINGE (J1650 PER 10MG) SC SCH (09:13)
--- NOTE | 2020-03-14 11:29 | IPNPDOC ---
Date Seen The patient was seen on 03/14/20. Progress Note SUBJECTIVE: patient seen and examined at bedside. VSS. Afebrile overnight. No acute events overnight. Reports mild to moderate diffuse abdo pain. OBJECTIVE PHYSICAL EXAMINATION: VITAL SIGNS: Please see below. GENERAL APPEARANCE: NAD, comfortable ined HEENT: PERRLA, EOMI. CARDIOVASCULAR: regular, normal S1, S2. LUNGS: lungs CTAB. ABDOMEN: distended, firm but not rigid, no rebound, no involuntary guarding. MUSCULOSKELETAL: no joint deformity. EXTREMITIES: no ededa. NEUROLOGICAL: no focal neuro deficits. PSYCHIATRIC: calm, cooperative, AAO x 3. LABORATORY DATA, IMAGING STUDIES, MICROBIOLOGY: Please see below. CT abdo w/o contrast (03/11/20) IMPRESSION: 1. Free intraperitoneal air. 2. Status post bilateral mastectomy with a left mammographic implant. 3. Slightly prominent small bowel loops. 4. Indistinctness in the right lower quadrant even though there is appendix there are 2 densities in the cecum of unknown etiology. 5. Nonobstructing left renal stone. DVT prophylaxis ordered?: Y, lovenox ASSESSMENT: 49 yo F with a hx of bilateral breast ca (s/p b/l mastectomy, active chemo), SVTs (s/p ablation 2015), pre-DM2, admitted for complicated diverticulitis with bowel perforation. PLAN: 1. SIRS: 2/2 complicated diverticulitis with bowel perforation. Gen surgery consulted. Free air appears contained. Monitor. WBC 2.8 -> 1.4., neutropenic (s/p chemotherapy 03/08/20). Neutropenic precs. Low threshold for sepsis. Zosyn. NPO. LR 100 cc/hr maintenance. Serial abdo exams. Vitals Q4h. Admit to PCU. Discussed with Dr. Moralez. It is reasonable to obtain a CT abdo again to assess for progression of small amount of free intraperitoneal air, especially given her post chemo neutropenia and reduced ability to mount inflammatory response. Will continue to monitor. 2. Bilateral breats ca: follows with Dr. Zuniga. Dr. Ramachandran. Bilateral breat ca. L breat DCIS ER/RI positive. R breast invasive ductal ca ER/RI positive. Active chemotherapy. Received cycle 2 03/08/20. 3. Pre-DM2: check a1c, pcp follow up. CC diet when PO. 4. Low K: replace. 5. Sinus tachycardia: s/p ablation for SVTs. S/P 1l LR bolus. Monitor. Check TSH. DVT ppx: lovenox. VS, I&O, 24H, Fishbone Vital Signs/I&O Vital Signs Date Time Temp Pulse Resp B/P (MAP) Pulse Ox O2 Delivery O2 Flow Rate FiO2 03/14/20 07:22 97.7 97 16 120/74 (89) 95 Room Air I&O- Last 24 Hours up to 6 AM 03/14/20 06:00 Intake Total 2550 ml Balance 2550 ml Laboratory Data 24H LABS Laboratory Tests 2 03/14/20 05:23: Neutrophils (%) (Auto) , Neutrophils # (Auto) , Nucleated Red Blood Cells % (auto) 0.0, Neutrophils 28, Band Neutrophils 5, Lymphocytes (Manual) 59H, Mon ocytes (Manual) 5, Myelocytes 1H, Atypical Lymphocytes 2, Anisocytosis 1+, Dohle Bodies 1+, Platelet Estimate NORMAL, Anion Gap 9, Glomerular Filtration Rate > 60.0, Calcium Level 8.1L, Phosphorus Level 3.0, Magnesium Level 2.1, Total Bilirubin 0.7, Aspartate Amino Transf (AST/SGOT) 12, Alanine Aminotransferase (ALT/SGPT) 14, Alkaline Phosphatase 67, Total Protein 6.4, Albumin 2.1L, Albumin/Globulin Ratio 0.5L CBC/BMP Laboratory Tests 03/13/20 20:48 03/14/20 05:23 SULY CEE MD Mar 14, 2020 11:29
--- NOTE | 2020-03-14 11:48 | REPVR ---
PROCEDURE INFORMATION: Exam: XR Abdomen, 1 View Exam date and time: 03/14/2020 11:39 AM Age: 49 years old Clinical indication: Other: Free air; Additional info: Free abdo air TECHNIQUE: Imaging protocol: XR of the abdomen. Views: Frontal supine view of the abdomen. 1 View. (2 images total) COMPARISON: CT ABD PELVIS W/O CONTRAST 03/11/2020 11:10 AM FINDINGS: Gastrointestinal tract: The small bowel is not significantly air-distended. Air and stool are present within large bowel. Intraperitoneal space: It is difficult to exclude free air with only supine images. Bones/joints: Unremarkable. IMPRESSION: Nonspecific bowel gas pattern. It is difficult to exclude free air with only supine images. Consider upright and/or cross lateral decubitus views. Electronically signed by: Supa Bullard On 03/14/2020 11:48:29 AM
[2020-03-14 12:00] VITALS: BP 142/78
--- NOTE | 2020-03-14 12:16 | REPVR ---
PROCEDURE INFORMATION: Exam: CT Abdomen And Pelvis Without Contrast Exam date and time: 03/14/2020 11:51 AM Age: 49 years old Clinical indication: Condition or disease; Other: Free intraperitoneal air TECHNIQUE: Imaging protocol: Computed tomography of the abdomen and pelvis without contrast. Radiation optimization: All CT scans at this facility use at least one of these dose optimization techniques: automated exposure control; mA and/or kV adjustment per patient size (includes targeted exams where dose is matched to clinical indication); or iterative reconstruction. COMPARISON: CT ABD PELVIS W/O CONTRAST 03/11/2020 11:10 AM FINDINGS: Limitations: Evaluation is somewhat limited by lack of IV contrast. Pleural space: A very small left pleural effusion has developed, associated with compression atelectasis and possibly infiltrate. Mild atelectasis is present at the right base. Mediastinal space: A small hiatal hernia is again present. Liver: The liver is again large and fatty in density. It appears otherwise grossly unremarkable. Gallbladder and bile ducts: No gallstones are evident, but ultrasound would be more sensitive. No gross biliary ductal dilatation. Pancreas: Grossly unremarkable. Spleen: Grossly unremarkable. Adrenals: Grossly unremarkable. Kidneys and ureters: The left kidney again contains small nonobstructing stones. There is no hydronephrosis or ureteral calculus on either side, and the kidneys appear otherwise grossly unremarkable. Stomach and bowel: Some small bowel loops are again mildly prominent in caliber distally. There appears to be increased mild wall thickening of multiple mid and distal small bowel loops in the lower abdomen. A small amount of oral contrast appears to have been administered, and extends through the small-bowel and into the large bowel. There is again mild descending and sigmoid colonic diverticulosis. Mildly increased fatty haziness and stranding is present in the lower abdominal mesentery, including adjacent to the thick-walled small bowel loops and sigmoid colon. It is unclear whether the findings could represent a primary peritonitis, nonspecific enteritis and/or diverticulitis. Appendix: The appendix is again normal in caliber, and again contains some high density material which could represent stones and/or contrast. Intraperitoneal space: Previously noted foci of pneumoperitoneum have nearly resolved, with a few tiny residual foci in the left pelvis. Small free fluid is again present in the pelvis. Vasculature: Unremarkable. No abdominal aortic aneurysm. Lymph nodes: No gross pathologic lymphadenopathy. Bladder: Grossly unremarkable. Reproductive: No gross adnexal abnormality is apparent, but ultrasound would be more appropriate in this regard. Bones/joints: Degenerative changes again involve the spine and hips. Soft tissues: There has again been bilateral mastectomy with a left-sided breast implant. IMPRESSION: 1. Mildly prominent caliber of some distal small bowel loops, as on 03/11/20, with apparent increased mild wall thickening of multiple mid and distal small bowel loops in the lower abdomen. This is in association with mildly increased fatty haziness and stranding of the mesentery, suggesting edema, unclear if related to a primary peritonitis, nonspecific enteritis and/or potentially diverticulitis with mild left-sided colonic diverticulosis again present. 2. Near resolution of previous pneumoperitoneum, with a few tiny residual foci in the left pelvis, again with small free fluid. 3. Very small new left pleural effusion associated with compression atelectasis and possibly infiltrate. 4. Other similar nonurgent findings as described. Electronically signed by: Supa Bullard On 03/14/2020 12:15:51 PM
[2020-03-14 16:00] VITALS: BP 134/70
--- NOTE | 2020-03-14 17:00 | IPN ---
DATE: 03/13/2020 HISTORY: The patient is a 49-year-old woman who was admitted on the 13 of March with abdominal pain and a scan showing free intra-abdominal air. There were a number of small scattered spots of air. She was started on antibiotics with Zosyn. Dr. Lau was consulted and recommended antibiotic therapy without surgical intervention at this time. She is undergoing chemotherapy for bilateral breast cancer as adjuvant therapy only, and had her second round started on March 08. Vital signs show that she had a T-max last evening of 101.6; actually that was at noon yesterday. She has been afebrile since 8 p.m. last night. Her pulse remains in the low 100s. Blood pressure is good. Intake and output show that yesterday she had 1600 in with 1300 out. PHYSICAL EXAMINATION: The patient is sitting up in the hospital bed looking mildly uncomfortable. She is absent of hair. She is alert and oriented. She reports some mild abdominal discomfort that comes and goes. She denies any nausea or vomiting but feels full. Heart exam shows a regular rhythm though she is somewhat tachycardic in the low 100s. Lung sounds are somewhat diminished by decreased inspiratory effort. The abdomen is full and somewhat obese. She does have a few faint bowel sounds. The abdomen is full to palpation with some mild tenderness but there is no point of maximal tenderness identified. LABORATORY STUDIES: Show a white count today of 3 with a hemoglobin of 10, hematocrit of 32 and a platelet count of 285,000. Her differential count shows 73% neutrophils, 21% lymphocytes. Chemistry profile shows that her potassium was down to 3.0 today with normal electrolytes otherwise, with a normal BUN, creatinine and glucose. IMPRESSION: I reviewed the patient's CT scan and she had a number of small punctate spots of air in the upper abdomen. It is unclear where these originated from. She has some diverticulosis so perforation of a diverticulum is certainly possible. This could represent a perforated duodenal ulcer. PLAN: At this point, we will continue the IV antibiotics and observation. Her white count is likely diminished because of her chemotherapy on the . I suspect that she may well need surgical intervention at some point here in the next few days. MTDD
[2020-03-14 20:00] VITALS: BP_SYST 126; BP_SYST 134; BP_DIAS 76; BP_DIAS 79
[2020-03-15] VITALS: BP 134/69
[2020-03-15 04:00] VITALS: BP 123/74
[2020-03-15 04:41] LABS: HEMATOCRIT 32.3 % (36.0-47.0); HEMOGLOBIN 10.6 g/dl (12.0-15.5); MEAN CORPUSCULAR HEMOGLOBIN 28.2 pg (27.0-33.0); MEAN CORPUSCULAR HGB CONC 32.8 g/dl (32.0-36.5); MEAN CORPUSCULAR VOLUME 85.9 fl (80.0-96.0); PLATELET COUNT, AUTOMATED 325 10^3/uL (150-450); RED BLOOD COUNT 3.76 10^6/uL (4.00-5.40); WHITE BLOOD COUNT 1.6 10^3/uL (4.0-10.0)
[2020-03-15 04:57] LABS: ALT/SGPT 13 U/L (12-78); BILIRUBIN,TOTAL 0.8 MG/DL (0.2-1.0); BLOOD UREA NITROGEN 9 MG/DL (7-18); CALCIUM LEVEL 8.2 MG/DL (8.5-10.1); CARBON DIOXIDE LEVEL 24 MEQ/L (21-32); CHLORIDE LEVEL 102 MEQ/L (98-107); CREATININE FOR GFR 0.31 MG/DL (0.55-1.30); GLOMERULAR FILTRATION RATE > 60.0 (>51); GLUCOSE, FASTING 86 MG/DL (70-100); MAGNESIUM LEVEL 2.1 MG/DL (1.8-2.4); PHOSPHORUS LEVEL 3.6 MG/DL (2.5-4.9); POTASSIUM SERUM 3.1 MEQ/L (3.5-5.1); SODIUM LEVEL 135 MEQ/L (136-145); TOTAL PROTEIN 6.1 GM/DL (6.4-8.2)
[2020-03-15 05:45] LABS: ANISOCYTOSIS 1+; ATYPICAL LYMPH 1 % (0-5); LYMPHOCYTES 60 % (16-44); MONOCYTES 15 % (0-5); NEUTROPHILS 24 % (28-66); PLATELET ESTIMATE NORMAL (NORMAL)
[2020-03-15] MEDS: LR 1,000 ML IV SCH (06:04)
[2020-03-15] MEDS: SODIUM CHLORIDE 0.9% INJ 10 ML SYR IV SCH ×2 (06:05→16:46)
[2020-03-15] MEDS: MORPHINE 2 MG/ML 1ML VIAL (J2270) IV PRN ×3 (06:05→22:09)
[2020-03-15] MEDS: PIPERACILLIN/TAZOBACTAM SOD 4.5 GM in D5W MINI-BAG PLUS 50 ML IV SCH ×4 (06:05→23:53)
--- NOTE | 2020-03-15 07:51 | IPNPDOC ---
Date Seen The patient was seen on 03/15/20. Progress Note SUBJECTIVE: patient seen and examined at bedside. VSS. Afebrile overnight. No acute events overnight. Reports mild to moderate diffuse abdo pain. OBJECTIVE PHYSICAL EXAMINATION: VITAL SIGNS: Please see below. GENERAL APPEARANCE: NAD, comfortable in bed HEENT: PERRLA, EOMI. CARDIOVASCULAR: regular, normal S1, S2. LUNGS: lungs CTAB. ABDOMEN: distended, firm but not rigid, no rebound, no involuntary guarding. MUSCULOSKELETAL: no joint deformity. EXTREMITIES: no ededa. NEUROLOGICAL: no focal neuro deficits. PSYCHIATRIC: calm, cooperative, AAO x 3. LABORATORY DATA, IMAGING STUDIES, MICROBIOLOGY: Please see below. CT abdo w/o contrast (03/11/20) IMPRESSION: 1. Free intraperitoneal air. 2. Status post bilateral mastectomy with a left mammographic implant. 3. Slightly prominent small bowel loops. 4. Indistinctness in the right lower quadrant even though there is appendix there are 2 densities in the cecum of unknown etiology. 5. Nonobstructing left renal stone. CT abdo pelvis 03/15/20 1. Mildly prominent caliber of some distal small bowel loops, as on 03/11/20, with apparent increased mild wall thickening of multiple mid and distal small bowel loops in the lower abdomen. This is in association with mildly increased fatty haziness and stranding of the mesentery, suggesting edema, unclear if related to a primary peritonitis, nonspecific enteritis and/or potentially diverticulitis with mild left-sided colonic diverticulosis again present. 2. Near resolution of previous pneumoperitoneum, with a few tiny residual foci in the left pelvis, again with small free fluid. 3. Very small new left pleural effusion associated with compression atelectasis and possibly infiltrate. 4. Other similar nonurgent findings as described. DVT prophylaxis ordered?: Y, lovenox ASSESSMENT: 49 yo F with a hx of bilateral breast ca (s/p b/l mastectomy, active chemo), SVTs (s/p ablation 2015), pre-DM2, admitted for complicated diverticulitis with bowel perforation. PLAN: 1. SIRS: 2/2 complicated diverticulitis with bowel perforation. Gen surgery consulted. Free air appears contained. Monitor. WBC 2.8 -> 1.4 -> 1.6., neutropenic (s/p chemotherapy 03/08/20). Low threshold for sepsis. Zosyn. NPO. Serial abdo exams. Vitals Q4h. Admit to PCU. Discussed with Dr. Moralez. It is reasonable to obtain a CT abdo again to assess for progression of small amount of free intraperitoneal air, especially given her post chemo neutropenia and reduced ability to mount inflammatory response. Will continue to monitor. Repeat CT abdo showing findings showing near resolution of previous pneumoperitoneum, mild increase in edema, stranding of mesentery poss related to primary peritonitis. 2. Bilateral breast ca: follows with Dr. Zuniga. Dr. Ramachandran. Bilateral breat ca. 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 Active chemotherapy. Received cycle 2 03/08/20. 3. Pre-DM2: check a1c, pcp follow up. CC diet when PO. 4. Low K: replace. 40 meq in LR, Krun. 5. Sinus tachycardia: s/p ablation for SVTs. IVF. TSH wnl. DVT ppx: lovenox. VS, [facility]&O[facility] Vital Signs/I&O Vital Signs Date Time Temp Pulse Resp B/P (MAP) Pulse Ox O2 Delivery O2 Flow Rate FiO2 03/15/20 06:16 18 93 Room Air 03/15/20 04:00 98.5 107 123/74 (90) I&O- Last 24 Hours up to 6 AM 03/15/20 06:00 Intake Total 1325 ml Output Total 0 ml Balance 1325 ml Laboratory Data 24H LABS Laboratory Tests 2 03/15/20 04:22: Neutrophils (%) (Auto) , Neutrophils # (Auto) , Nucleated Red Blood Cells % (auto) 0.0, Neutrophils 24L, Lymphocytes (Manual) 60H, Monocytes (Manual) 15H, Atypical Lymphocytes 1, Anisocytosis 1+, Platelet Estimate NORMAL, Anion Gap 9, Glomerular Filtration Rate > 60.0, Calcium Level 8.2L, Phosphorus Level 3.6, Magnesium Level 2.1, Total Bilirubin 0.8, Aspartate Amino Transf (AST/SGOT) 10, Alanine Aminotransferase (ALT/SGPT) 13, Alkaline Phosphatase 66, Total Protein 6.1L, Albumin 2.0L, Albumin/Globulin Ratio 0.5L CBC/BMP Laboratory Tests 03/15/20 04:22 SULY CEE MD Mar 15, 2020 07:51
[2020-03-15 08:00] VITALS: BP 133/72
[2020-03-15] MEDS: ENOXAPARIN 40MG/0.4ML SYRINGE (J1650 PER 10MG) SC SCH (09:10)
[2020-03-15] MEDS: KCL 10MEQ/100ML SWI (KRUN) 10 MEQ in IV 1 EA IV SCH ×4 (09:10→14:35)
--- NOTE | 2020-03-15 10:32 | IPN ---
DATE: 03/14/2020 HISTORY: The patient is a 49-year-old woman undergoing chemotherapy adjuvantly for breast cancer who was admitted with abdominal pain and some scattered small bubbles of free air by abdominal CT. She has been maintained on antibiotics with Zosyn. She has been kept n.p.o. She reports feeling perhaps a little better with still some lower abdominal discomfort. PHYSICAL EXAMINATION: VITAL SIGNS: Vital signs show that she has been afebrile over the past 24 hours. Her pulse is in the mid to upper 90s to low 100s. Blood pressure is normal. Intake and output yesterday: she had 1,475 in with 450 of measured urine output but several other voids and bowel movements. GENERAL APPEARANCE: The patient is lying quietly in the hospital bed. She is perhaps is a little more comfortably appearing today. She is alert and oriented. ABDOMEN: Abdominal exam shows the abdomen to be somewhat full. She has some bowel sounds present. Palpation reveals no areas of marked tenderness, rebound or guarding. She does have some mild tenderness on palpation in scattered areas. LABORATORY STUDIES: Today white count of 1.4 with a hemoglobin of 10, hematocrit 32 and a platelet count of 285,000. Her differential showed 28% neutrophils, 5% bands, 59 lymphocytes and 5 monocytes. Her chemistry profile was notable for a potassium of 3.2, which is marginally better than yesterday. Her other electrolytes are normal as is her BUN and creatinine. Liver function tests are normal as well. IMAGING: The patient had a repeat CT scan today of the abdomen and pelvis. Dr. Staley and I had spoken about this earlier. Given her markedly low white count, which I think is most likely related to her recent chemotherapy, we agreed that it is somewhat more difficult to monitor her condition and agreed to do a repeat CT. I have seen the films and there is a report available now. She has near complete resolution of her small foci of free air. There are one or two bubbles that I can identify posteriorly in the left mid to lower abdomen. There remains some inflammatory change in the bowel loops in the mid to lower abdomen. There is a little free fluid. IMPRESSION: The patient appears to be stable at this point. Her new CT does not show any increase in free air but actually shows a resolution of much of the free air that she had which was quite little. Her white count is continuing to fall, but I believe this is a response to her chemotherapy done on the 08 of March. RECOMMENDATIONS : 1. At this point I would continue her n.p.o. until tomorrow. 2. She should remain on her antibiotics. 3. If she is doing well tomorrow, then I would begin a trial of clear liquids and consider advancing these as tolerated. MTDD
[2020-03-15 12:00] VITALS: BP 126/70
[2020-03-15] MEDS: ONDANSETRON 4MG/2ML VIAL IV PRN (12:05)
[2020-03-15] MEDS ORDERED: KCL 10MEQ IN STERILE WATER 100ML As Ordered ONE (14:33)
[2020-03-15] MEDS: POTASSIUM CHLORIDE INJ 40 MEQ in LR 1,000 ML IV SCH ×2 (14:36→22:10)
[2020-03-15 16:00] VITALS: BP 127/63
[2020-03-15 20:00] VITALS: BP 140/82
[2020-03-15] MEDS ORDERED: ACETAMINOPHEN TAB 650MG DOSE (2X325MG) PO ONE (23:45)
[2020-03-16 00:12] VITALS: BP 118/66
[2020-03-16] MEDS: POTASSIUM CHLORIDE INJ 40 MEQ in LR 1,000 ML IV SCH ×3 (02:12→15:40)
[2020-03-16 04:00] VITALS: BP 119/67
[2020-03-16] MEDS: PIPERACILLIN/TAZOBACTAM SOD 4.5 GM in D5W MINI-BAG PLUS 50 ML IV SCH ×4 (05:17→23:47)
[2020-03-16] MEDS: SODIUM CHLORIDE 0.9% INJ 10 ML SYR IV SCH ×2 (05:18→18:34)
[2020-03-16] MEDS: MORPHINE 2 MG/ML 1ML VIAL (J2270) IV PRN ×3 (05:31→21:23)
[2020-03-16 08:00] VITALS: BP 114/69
[2020-03-16] MEDS: ENOXAPARIN 40MG/0.4ML SYRINGE (J1650 PER 10MG) SC SCH (10:22)
[2020-03-16 12:00] VITALS: BP 122/70
[2020-03-16 12:36] LABS: HEMATOCRIT 34.6 % (36.0-47.0); HEMOGLOBIN 11.2 g/dl (12.0-15.5); MEAN CORPUSCULAR HEMOGLOBIN 28.1 pg (27.0-33.0); MEAN CORPUSCULAR HGB CONC 32.4 g/dl (32.0-36.5); MEAN CORPUSCULAR VOLUME 86.9 fl (80.0-96.0); PLATELET COUNT, AUTOMATED 338 10^3/uL (150-450); RED BLOOD COUNT 3.98 10^6/uL (4.00-5.40); WHITE BLOOD COUNT 3.5 10^3/uL (4.0-10.0)
[2020-03-16] MEDS: ACETAMINOPHEN TAB 650MG DOSE (2X325MG) PO PRN ×2 (12:47→21:22)
[2020-03-16 13:02] LABS: BLOOD UREA NITROGEN 6 MG/DL (7-18); CALCIUM LEVEL 8.2 MG/DL (8.5-10.1); CARBON DIOXIDE LEVEL 29 MEQ/L (21-32); CHLORIDE LEVEL 105 MEQ/L (98-107); CREATININE FOR GFR 0.46 MG/DL (0.55-1.30); GLOMERULAR FILTRATION RATE > 60.0 (>51); GLUCOSE, FASTING 108 MG/DL (70-100); POTASSIUM SERUM 3.5 MEQ/L (3.5-5.1); SODIUM LEVEL 140 MEQ/L (136-145)
[2020-03-16 14:01] LABS: ATYPICAL LYMPH 39 % (0-5); LYMPHOCYTES 41 % (16-44); NEUTROPHILS 18 % (28-66)
[2020-03-16 14:02] LABS: PLATELET ESTIMATE NORMAL (NORMAL)
[2020-03-16 16:37] VITALS: BP 124/68
--- NOTE | 2020-03-16 17:03 | IPNPDOC ---
Subjective Date Seen The patient was seen on 03/16/20. Subjective Chief Complaint/HPI Abdominal pain Events since last encounter Today, she reported 2 episodes of watery diarrhea. Otherwise reported subjective fever. No fever since 03/14/2020. Otherwise, contacted her oncologist, Dr. Zuniga, about the PICC line. He is okay for the PICC line to be used for IV medications and lab draws General: Reports: Other Symptoms (Subjective fever) Constitutional: Denies: Chills ENT: Denies: Dysphagia, Sore Throat Pulmonary: Denies: Dyspnea, Pleuritic Chest Pain Cardiovascular: Denies: Chest Pain Gastrointestinal: Reports: Nausea, Diarrhea; Denies: Constipation Genitourinary: Denies: Dysuria Objective Physical Examination General Exam: Positive: Alert, Cooperative, No Acute Distress Eye Exam: Positive: PERRLA; Negative: Sclera icteric ENT Exam: Positive: Atraumatic, Mucous membr. moist/pink Neck Exam: Positive: Supple Chest Exam: Positive: Clear to auscultation Heart Exam: Positive: Tachycardic, Regular Rhythm Abdomen Exam: Positive: Tenderness, Other (Distended, but not rigid, not soft) Extremity Exam: Positive: Edema Neuro Exam: Positive: Normal Speech, Normal Tone, Cranial Nerves 3-12 NL Psych Exam: Positive: Mental status NL, Mood NL Assessment /Plan Assessment Mrs. Braga is a 49 year old female history of bilateral breast carcinoma s/p bilateral mastectomy and actively receiving chemotherapy here with abdominal pain secondary to diverticulitis. Initial imaging was suggestive of bowel perforation, but repeat imaging has been showing resolution of pneumoperitoneum. Surgery is following. Otherwise, she has had neutropenia secondary to recent chemotherapy (03/08/20) and an episode of fever on 03/14/2020. Currently being managed on antibiotics and trending neutropenia. Plan/VTE VTE Prophylaxis Ordered?: Yes Plan 1. SIRS secondary to diverticulitis with bowel perforation. General surgery was consulted for free air in abdomen. Repeat imaging shows resolution of free air. Currently on Zosyn day 5 for diverticulitis. Today she had 2 episodes of water diarrhea. Will continue to monitor. Today she tried to eat, but had abdominal pain. 2. Chemotherapy induced leukopenia. Recently had chemotherapy on 03/08/2020 for breast cancer. Lowest WBC was 1.4 on 03/14. Lab did not report percent neutr ophils. One episode of fever on that date, but no fevers since then. WBC improved today at 3.5. Will continue antibiotics and monitoring WBC. Patient will need to follow up with oncologist on discharge 3. Hypokalemia. Most likely secondary to diarrhea. Magnesium level 2.1 yesterday. Currently receiving fluids with potassium. Continue to monitor. 4. Bilateral breast carcinoma: Follows with Dr. Zuniga for L breast DCIS ([place] positive) and R breast invasive ductal carcinoma (ER/[place] positive). On chemotherapy, cycle 2, last dose 03/08/2020. Will need to follow up with Dr. Zuniga on discharge 5. DVT ppx: Lovenox VS, I&O, 24H, Fishbone Vital Signs/I&O Vital Signs Date Time Temp Pulse Resp B/P (MAP) Pulse Ox O2 Delivery O2 Flow Rate FiO2 03/16/20 13:52 18 Room Air 03/16/20 12:00 97.2 102 122/70 (87) 94 I&O- Last 24 Hours up to 6 AM 03/16/20 05:59 Intake Total 940 ml Output Total 1900 ml Balance -960 ml Laboratory Data 24H LABS Laboratory Tests 2 03/16/20 12:22: Immature Granulocyte % (Auto) , Neutrophils (%) (Auto) , Neutrophils # (Auto) , Nucleated Red Blood Cells % (auto) 0.6H, Neutrophils 18L, Band Neutrophils 2, Lymphocytes (Manual) 41, Atypical Lymphocytes 39H, Red Blood Cell Morphology NORMAL, Platelet Estimate NORMAL, Anion Gap 6L, Glomerular Filtration Rate > 60.0, Calcium Level 8.2L CBC/BMP Laboratory Tests 03/16/20 12:22 WESTON MESA DO Mar 16, 2020 14:34
[2020-03-16 20:23] VITALS: BP 124/66
[2020-03-17] VITALS (8 sets, daily range): BP systolic 112–129; BP diastolic 69–82
[2020-03-17] MEDS: POTASSIUM CHLORIDE INJ 40 MEQ in LR 1,000 ML IV SCH ×3 (01:08→17:40)
[2020-03-17] MEDS: ACETAMINOPHEN TAB 650MG DOSE (2X325MG) PO PRN ×4 (04:22→23:57)
[2020-03-17 04:42] LABS: BASO % 0.8 % (0.0-1.0); EOS % 0.2 % (0.0-3.0); HEMATOCRIT 31.8 % (36.0-47.0); HEMOGLOBIN 10.3 g/dl (12.0-15.5); LYMPH # 1.1 10^3/uL (1.5-5.0); LYMPH % 22.1 % (24.0-44.0); MEAN CORPUSCULAR HEMOGLOBIN 28.1 pg (27.0-33.0); MEAN CORPUSCULAR HGB CONC 32.4 g/dl (32.0-36.5); MEAN CORPUSCULAR VOLUME 86.6 fl (80.0-96.0); MONO # 1.2 10^3/uL (0.0-0.8); MONO % 22.5 % (0.0-5.0); NEUTROPHILS # 1.3 10^3/uL (1.5-8.5); NEUTROPHILS % 25.5 % (36.0-66.0); PLATELET COUNT, AUTOMATED 324 10^3/uL (150-450); RED BLOOD COUNT 3.67 10^6/uL (4.00-5.40); WHITE BLOOD COUNT 5.1 10^3/uL (4.0-10.0)
[2020-03-17 05:06] LABS: BLOOD UREA NITROGEN 4 MG/DL (7-18); CALCIUM LEVEL 8.3 MG/DL (8.5-10.1); CARBON DIOXIDE LEVEL 29 MEQ/L (21-32); CHLORIDE LEVEL 106 MEQ/L (98-107); CREATININE FOR GFR 0.34 MG/DL (0.55-1.30); GLOMERULAR FILTRATION RATE > 60.0 (>51); GLUCOSE, FASTING 117 MG/DL (70-100); POTASSIUM SERUM 3.7 MEQ/L (3.5-5.1); SODIUM LEVEL 138 MEQ/L (136-145)
[2020-03-17] MEDS: PIPERACILLIN/TAZOBACTAM SOD 4.5 GM in D5W MINI-BAG PLUS 50 ML IV SCH ×4 (06:20→23:57)
[2020-03-17] MEDS: SODIUM CHLORIDE 0.9% INJ 10 ML SYR IV SCH ×2 (06:21→20:54)
[2020-03-17] MEDS: ENOXAPARIN 40MG/0.4ML SYRINGE (J1650 PER 10MG) SC SCH (08:09)
[2020-03-17] MEDS: SODIUM CHLORIDE 0.9% INJ 10 ML SYR IV PRN ×2 (08:09→13:14)
--- NOTE | 2020-03-17 20:33 | IPNPDOC ---
Subjective Date Seen The patient was seen on 03/17/20. Subjective Chief Complaint/HPI Patient is a 49 year old female here with abdominal pain secondary to diverticulitis complicated by perforation (which repeat imaging shows resolving pneumoperitoneum). Today she feels much better when compared to yesterday and she was taking laps in the hallway. She still has abdominal pain, but it is improved. She is still on a liquid diet, but she feels that she can progress to a mechanical soft diet. She did have concern for watery diarrhea x7 today. She is on IV antibiotics. Otherwise she has subjective fevers, but denies chest pain or shortness of breath Constitutional: Reports: Fever (subjective); Denies: Chills Eyes: Denies: Vision change ENT: Denies: Dysphagia, Sore Throat Skin: Reports: Rash (right forearm erythematous swollen rash. Nontender, but it is where a previous IV line was placed) Pulmonary: Denies: Dyspnea Cardiovascular: Denies: Chest Pain Gastrointestinal: Reports: Abdominal Pain, Diarrhea (7 episodes of watery diarrhea); Denies: Nausea Genitourinary: Denies: Dysuria Objective Physical Examination General Exam: Positive: Alert, Cooperative, No Acute Distress Eye Exam: Positive: PERRLA; Negative: Sclera icteric ENT Exam: Positive: Atraumatic, Mucous membr. moist/pink Neck Exam: Positive: Supple Chest Exam: Positive: Clear to auscultation Heart Exam: Positive: Tachycardic, Regular Rhythm Abdomen Exam: Positive: Tenderness, Other (Distended, but not rigid, not soft) Extremity Exam: Positive: Edema Skin Exam: Positive: Rash (right forearm where IV was previously. Red and swollen, but no tenderness) Neuro Exam: Positive: Normal Speech, Normal Tone, Cranial Nerves 3-12 NL Psych Exam: Positive: Mental status NL, Mood NL Assessment /Plan Assessment Mrs. Braga is a 49 year old female history of bilateral breast carcinoma s/p bilateral mastectomy and actively receiving chemotherapy here with abdominal pain secondary to diverticulitis. Initial imaging was suggestive of bowel perforation, but repeat imaging has been showing resolution of pneumoperitoneum. Surgery is following. Otherwise, she has had neutropenia secondary to recent chemotherapy (03/08/20) and an episode of fever on 03/14/2020. Currently being ma naged on antibiotics and trending neutropenia. Today, her neutropenia has improved and she feels that she can advance her diet. Plan/VTE VTE Prophylaxis Ordered?: Yes Plan 1. SIRS secondary to diverticulitis with bowel perforation. General surgery was consulted for free air in abdomen. Repeat imaging shows resolution of free air. Currently on Zosyn day 12/20 for diverticulitis. Today she had 7 episodes of water diarrhea. Ordered for Cdiff. She feels that she can advancer her diet. Will try on mechanical soft diet. 2. Chemotherapy induced leukopenia. Recently had chemotherapy on 03/08/2020 for breast cancer. Lowest WBC was 1.4 on 03/14. Lab did not report percent neutrophils. One episode of fever on that date, but no fevers since then. WBC improved today at 5.1. Will continue antibiotics and monitoring WBC. Patient will need to follow up with oncologist on discharge 3. Hypokalemia. Most likely secondary to diarrhea. Magnesium is wnl. Continue to monitor. 4. Bilateral breast carcinoma: Follows with Dr. Zuniga for L breast DCIS (ER/[place] positive) and R breast invasive ductal carcinoma (ER/[place] positive). On chemotherapy, cycle 2, last dose 03/08/2020. Will need to follow up with Dr. Zuniga on discharge 5. DVT ppx: Lovenox VS, I&O, 24H, Fishbone Vital Signs/I&O Vital Signs Date Time Temp Pulse Resp B/P (MAP) Pulse Ox O2 Delivery O2 Flow Rate FiO2 03/17/20 16:00 98.6 93 20 121/76 (91) 99 Room Air I&O- Last 24 Hours up to 6 AM 03/17/20 06:00 Intake Total 660 ml Output Total 280 ml Balance 380 ml Laboratory Data 24H LABS Laboratory Tests 2 03/17/20 04:17: Immature Granulocyte % (Auto) 28.9H, Neutrophils (%) (Auto) 25.5L, Lymphocytes (%) (Auto) 22.1L, Monocytes (%) (Auto) 22.5H, Eosinophils (%) (Auto) 0.2, Basophils (%) (Auto) 0.8, Neutrophils # (Auto) 1.3L, Lymphocytes # (Auto) 1.1L, Monocytes # (Auto) 1.2H, Eosinophils # (Auto) 0.0, Basophils # (Auto) 0.0, Nucleated Red Blood Cells % (auto) 0.6H, Anion Gap 3L, Glomerular Filtration Rate > 60.0, Calcium Level 8.3L 03/17/20 08:32: Lab Scanned Report Miscellaneous Lab CBC/BMP Laboratory Tests 03/17/20 04:17 WESTON MESA DO Mar 17, 2020 20:33
[2020-03-17 22:21] LABS: HEMOGLOBIN 10.8 g/dl (12.0-15.5)
[2020-03-17 23:06] LABS: CLOSTRIDIUM DIFFICILE PCR NEGATIVE (NEGATIVE)
[2020-03-17] MEDS: MORPHINE 2 MG/ML 1ML VIAL (J2270) IV PRN (23:58)
[2020-03-18 04:00] VITALS: BP 124/63
[2020-03-18] MEDS: SODIUM CHLORIDE 0.9% INJ 10 ML SYR IV SCH ×2 (05:15→17:47)
[2020-03-18] MEDS: PIPERACILLIN/TAZOBACTAM SOD 4.5 GM in D5W MINI-BAG PLUS 50 ML IV SCH (05:15)
[2020-03-18 05:39] LABS: BASO % 0.4 % (0.0-1.0); EOS % 0.1 % (0.0-3.0); HEMATOCRIT 32.6 % (36.0-47.0); HEMOGLOBIN 10.5 g/dl (12.0-15.5); LYMPH # 1.5 10^3/uL (1.5-5.0); LYMPH % 16.3 % (24.0-44.0); MEAN CORPUSCULAR HEMOGLOBIN 28.1 pg (27.0-33.0); MEAN CORPUSCULAR HGB CONC 32.2 g/dl (32.0-36.5); MEAN CORPUSCULAR VOLUME 87.2 fl (80.0-96.0); MONO # 1.3 10^3/uL (0.0-0.8); MONO % 13.3 % (0.0-5.0); NEUTROPHILS # 2.9 10^3/uL (1.5-8.5); NEUTROPHILS % 30.7 % (36.0-66.0); PLATELET COUNT, AUTOMATED 340 10^3/uL (150-450); RED BLOOD COUNT 3.74 10^6/uL (4.00-5.40); WHITE BLOOD COUNT 9.4 10^3/uL (4.0-10.0)
[2020-03-18 06:01] LABS: BLOOD UREA NITROGEN 3 MG/DL (7-18); CALCIUM LEVEL 8.5 MG/DL (8.5-10.1); CARBON DIOXIDE LEVEL 27 MEQ/L (21-32); CHLORIDE LEVEL 105 MEQ/L (98-107); CREATININE FOR GFR 0.47 MG/DL (0.55-1.30); GLOMERULAR FILTRATION RATE > 60.0 (>51); GLUCOSE, FASTING 102 MG/DL (70-100); POTASSIUM SERUM 3.8 MEQ/L (3.5-5.1); SODIUM LEVEL 138 MEQ/L (136-145)
[2020-03-18 08:00] VITALS: BP 118/85
[2020-03-18 09:00] VITALS: BP 114/64
[2020-03-18] MEDS: ENOXAPARIN 40MG/0.4ML SYRINGE (J1650 PER 10MG) SC SCH (09:36)
[2020-03-18] MEDS: LACTOBACILLUS ACIDOPHILUS CAP (BACID) PO SCH (09:36)
[2020-03-18 12:00] VITALS: BP 122/78
[2020-03-18] MEDS: AUGMENTIN 875 MG TAB PO SCH ×2 (13:03→21:02)
--- NOTE | 2020-03-18 13:05 | IPNPDOC ---
Subjective Date Seen The patient was seen on 03/18/20. Subjective Chief Complaint/HPI Patient is a 49 year old female here with abdominal pain secondary to diverticulitis complicated by perforation (which repeat imaging shows resolving pneumoperitoneum). Overnight, she needed a dose of morphine for the pain. This morning, the pain was controlled, but she still has abdominal pain. She tolerated a mechanical soft diet. Will try regular diet for lunch. Otherwise, her diarrhea is improving. The C.diff test was negative ENT: Denies: Dysphagia, Sore Throat Pulmonary: Denies: Dyspnea Cardiovascular: Denies: Chest Pain Gastrointestinal: Reports: Abdominal Pain, Diarrhea; Denies: Nausea Genitourinary: Denies: Dysuria Objective Physical Examination General Exam: Positive: Alert, Cooperative, No Acute Distress Eye Exam: Positive: PERRLA; Negative: Sclera icteric ENT Exam: Positive: Atraumatic, Mucous membr. moist/pink Neck Exam: Positive: Supple Chest Exam: Positive: Clear to auscultation Heart Exam: Positive: Tachycardic, Regular Rhythm Abdomen Exam: Positive: Tenderness Extremity Exam: Positive: Edema Skin Exam: Positive: Rash (right forearm where IV was previously. Red and swollen, but no tenderness) Neuro Exam: Positive: Normal Speech, Normal Tone, Cranial Nerves 3-12 NL Psych Exam: Positive: Mental status NL, Mood NL Assessment /Plan Assessment Mrs. Braga is a 49 year old female history of bilateral breast carcinoma s/p bilateral mastectomy and actively receiving chemotherapy here with abdominal pain secondary to diverticulitis. Initial imaging was suggestive of bowel perforation, but repeat imaging has been showing resolution of pneumoperitoneum. Surgery is following. Otherwise, she has had neutropenia secondary to recent chemotherapy (03/08/20) and an episode of fever on 03/14/2020. Currently being managed on antibiotics and trending neutropenia. Otherwise, her neutropenia has improved, and she feels that she can advance her diet to regular diet. Plan/VTE VTE Prophylaxis Ordered?: Yes Plan 1. SIRS secondary to diverticulitis with bowel perforation. General surgery was consulted for free air in abdomen. Repeat imaging shows resolution of free air. Today, will switch her to oral antibiotics (Augmentin and Flagyl) in ant icipation for discharge tomorrow. Day 7/14 for antibiotics. Otherwise diarrhea has been improving with advancement of diet. C.diff negative. Tolerated mechanical soft breakfast. Advance to regular for diet. Did need morphine for pain control last night, but she thinks she may not needed it. Will try with just Tylenol. 2. Chemotherapy induced leukopenia. Recently had chemotherapy on 03/08/2020 for breast cancer. Lowest WBC was 1.4 on 03/14. Lab did not report percent neutrophils. One episode of fever on that date, but no fevers since then. WBC now 9.4. Will continue antibiotics and monitoring WBC. Patient will need to follow up with oncologist on discharge 3. Hypokalemia. Most likely secondary to diarrhea. Magnesium is wnl. Continue to monitor. 4. Bilateral breast carcinoma: Follows with Dr. 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 On chemotherapy, cycle 2, last dose 03/08/2020. Will need to follow up with Dr. Zuniga on discharge 5. DVT ppx: Lovenox VS, I&O, 24H, Fishbone Vital Signs/I&O Vital Signs Date Time Temp Pulse Resp B/P (MAP) Pulse Ox O2 Delivery O2 Flow Rate FiO2 03/18/20 09:00 97.6 70 19 114/64 (81) 97 Room Air I&O- Last 24 Hours up to 6 AM 03/18/20 06:00 Intake Total 2278 ml Output Total 2550 ml Balance -272 ml Laboratory Data 24H LABS Laboratory Tests 2 03/17/20 20:45: Clostridium difficile [id number] PRESUMPTIVE NEGATIVE, Clostridium difficile Toxin (PCR) NEGATIVE 03/18/20 05:24: Immature Granulocyte % (Auto) 39.2H, Neutrophils (%) (Auto) 30.7L, Lymphocytes (%) (Auto) 16.3L, Monocytes (%) (Auto) 13.3H, Eosinophils (%) (Auto) 0.1, Basophils (%) (Auto) 0.4, Neutrophils # (Auto) 2.9, Lymphocytes # (Auto) 1.5, Monocytes # (Auto) 1.3H, Eosinophils # (Auto) 0.0, Basophils # (Auto) 0.0, Nucleated Red Blood Cells % (auto) 0.5H, Anion Gap 6L, Glomerular Filtration Rate > 60.0, Calcium Level 8.5 CBC/BMP Laboratory Tests 03/17/20 22:15 03/18/20 05:24 MARWESTON DO Mar 18, 2020 12:55
[2020-03-18] MEDS ORDERED: ACETAMINOPHEN 500 MG TAB PO PRN (13:15)
[2020-03-18] MEDS: metroNIDAZOLE (FLAGYL) 500MG TABLET PO SCH ×2 (14:11→21:02)
[2020-03-18 16:00] VITALS: BP 128/80
[2020-03-18 20:00] VITALS: BP 112/62
[2020-03-19] VITALS: BP 121/71
[2020-03-19 04:00] VITALS: BP 103/55
[2020-03-19] MEDS: metroNIDAZOLE (FLAGYL) 500MG TABLET PO SCH (05:13)
[2020-03-19] MEDS: SODIUM CHLORIDE 0.9% INJ 10 ML SYR IV SCH (05:14)
[2020-03-19 05:26] LABS: BASO # 0.1 10^3/uL (0.0-0.2); BASO % 0.4 % (0.0-1.0); EOS % 0.1 % (0.0-3.0); HEMATOCRIT 35.4 % (36.0-47.0); HEMOGLOBIN 11.1 g/dl (12.0-15.5); LYMPH # 1.9 10^3/uL (1.5-5.0); LYMPH % 12.9 % (24.0-44.0); MEAN CORPUSCULAR HEMOGLOBIN 27.4 pg (27.0-33.0); MEAN CORPUSCULAR HGB CONC 31.4 g/dl (32.0-36.5); MEAN CORPUSCULAR VOLUME 87.4 fl (80.0-96.0); MONO # 1.3 10^3/uL (0.0-0.8); MONO % 8.6 % (0.0-5.0); NEUTROPHILS # 5.6 10^3/uL (1.5-8.5); NEUTROPHILS % 37.1 % (36.0-66.0); PLATELET COUNT, AUTOMATED 353 10^3/uL (150-450); RED BLOOD COUNT 4.05 10^6/uL (4.00-5.40); WHITE BLOOD COUNT 15.1 10^3/uL (4.0-10.0)
[2020-03-19 06:15] LABS: BLOOD UREA NITROGEN 8 MG/DL (7-18); CALCIUM LEVEL 7.9 MG/DL (8.5-10.1); CARBON DIOXIDE LEVEL 28 MEQ/L (21-32); CHLORIDE LEVEL 106 MEQ/L (98-107); CREATININE FOR GFR 0.51 MG/DL (0.55-1.30); GLOMERULAR FILTRATION RATE > 60.0 (>51); GLUCOSE, FASTING 122 MG/DL (70-100); POTASSIUM SERUM 3.7 MEQ/L (3.5-5.1); SODIUM LEVEL 138 MEQ/L (136-145)
[2020-03-19 07:27] VITALS: BP 108/68
[2020-03-19] MEDS ORDERED: POTASSIUM CHLORIDE 10% LIQ 20 MEQ/15 ML UDC PO ONE (07:30)
[2020-03-19] MEDS: AUGMENTIN 875 MG TAB PO SCH (08:27)
[2020-03-19] MEDS: LACTOBACILLUS ACIDOPHILUS CAP (BACID) PO SCH (08:27)
[2020-03-19] MEDS: ENOXAPARIN 40MG/0.4ML SYRINGE (J1650 PER 10MG) SC SCH (08:28)
[2020-03-19] MEDS ORDERED: ACET-683 PO (08:43)
[2020-03-19] MEDS ORDERED: RISATAB3 PO (08:43)
[2020-03-19] MEDS ORDERED: METR-265 PO (08:43)
[2020-03-19] MEDS ORDERED: AMOX875T2 PO (08:43)
--- NOTE | 2020-03-19 14:23 | DS.PDOC ---
Discharge Summary General Date of Admission Mar 11, 2020 at 13:42 Date of Discharge Mar 19, 2020 Attending Physician: WESTON MESA DO Specialist/Consultants [facility] General Surgery, Dr. Moralez Discharge Summary PROCEDURES PERFORMED DURING STAY: [None]. ADMITTING DIAGNOSES: 1. Diverticulitis complicated by pneumoperitoneum 2. Bilateral breast cancer DISCHARGE DIAGNOSES: 1. Diverticulitis complicated by pneumoperitoneum 2. Hypokalemia 3. Bilateral breast cancer 4. Chemotherapy induced COMPLICATIONS/CHIEF COMPLAINT: Peritoneal Free Air. HISTORY OF PRESENT ILLNESS: Patient is a 49 year old female with history of bilateral breast cancer (s/p bilateral mastectomy, actively receiving chemo) who comes to [facility] for progressively worsening diffuse abdominal pain for the past 24 hours. The pain is an intermittent, crampy pain. She had no bowel movements 3 days prior to admission. Denies fever/chills, nausea/vomiting, diarrhea, melena/hematochezia, or hematemesis. CT abd/pelvis demonstrates free air in the abdomen. General surgery, Dr. Lau was initial contacted and consulted. She was started on Zosyn and admitted HOSPITAL COURSE: During her hospitalization, she had a repeat imaging of her abdomen demonstrated resolution of the free air in the abdomen. Her abdominal pain also started to improve. Due to recently having chemotherapy on 03/08/2020, she started to have leukopenia. on 03/14/2020, the lowest WBC count was 1.4. That morning, she did spike a fever, but only happened once. Since that time, the leukopenia started increasing. She was initially on a clear liquid diet and did well. She had several episodes of watery diarrhea during her hospitalization, but C.diff was negative. She was progressed to a regular diet and antibiotics was switched from Zosyn to Augmentin and Flagyl. Watery diarrhea improved when she was switched to a regular diet. Abdominal pain improved and now is described as an achy feeling. She did not need IV morphine anymore and was controlled on Tylenol. She felt well and wanted to go home. She denies fever/chills, chest pain, dyspnea, or dysuria. Since she was feeling well, ambulated around the unit, and tolerated an oral diet, she was discharge home. DISCHARGE MEDICATIONS: Please see below. ALLERGIES: Please see below. PHYSICAL EXAMINATION ON DISCHARGE: VITAL SIGNS: Please see below. GENERAL: Comfortable, no apparent distress HEENT: Head normocephalic/atraumatic, EOMI, pupils equal and round, sclera clear NECK: Supple CARDIOVASCULAR EXAMINATION: Tachycardic, but regular RESPIRATORY EXAMINATION: Lungs clear to auscultation bilaterally ABDOMINAL EXAMINATION: Soft, mild tenderness, normal bowel sounds EXTREMITIES: Mild pitting edema NEUROLOGICAL EXAMINATION: CN 3-12 grossly intact, A&Ox3 PSYCHIATRIC EXAMINATION: Normal mood and affect LABORATORY DATA: Please see below. PROGNOSIS: Stable ACTIVITY: [As tolerated]. DIET: Regular DISCHARGE PLAN: Home DISPOSITION: , Self-Care. DISCHARGE INSTRUCTIONS: 1. Follow up with your PCP in a week 2. Follow up with your oncologist, Dr. Zuniga in a week 3. Continue antibiotics (Augmentin and Metronidazole) for 6 more days for a to james of 14 day treatment DISCHARGE CONDITION: [Stable]. Total time spent on discharge planning, discharge summary, and medication reconciliation 40 minutes Vital Signs/I&Os Vital Signs Date Time Temp Pulse Resp B/P (MAP) Pulse Ox O2 Delivery O2 Flow Rate FiO2 03/19/20 12:00 100.2 106 20 93 03/19/20 07:27 108/68 (81) Room Air I&O- Last 24 Hours up to 6 AM 03/19/20 06:00 Intake Total 1390 ml Output Total 1600 ml Balance -210 ml Laboratory Data Labs 24H Laboratory Tests 2 03/19/20 05:18: Immature Granulocyte % (Auto) 40.9H, Neutrophils (%) (Auto) 37.1, Lymphocytes (%) (Auto) 12.9L, Monocytes (%) (Auto) 8.6H, Eosinophils (%) (Auto) 0.1, B asophils (%) (Auto) 0.4, Neutrophils # (Auto) 5.6, Lymphocytes # (Auto) 1.9, Monocytes # (Auto) 1.3H, Eosinophils # (Auto) 0.0, Basophils # (Auto) 0.1, Nucleated Red Blood Cells % (auto) 0.4H, Anion Gap 4L, Glomerular Filtration Rate > 60.0, Calcium Level 7.9L CBC/BMP Laboratory Tests 03/19/20 05:18 Discharge Medications Scheduled Amoxicillin/Potassium Clav (Amox-Clav 875-125 mg Tablet) 1 Each Tablet, 875 MG PO BID Cholecalciferol (Vitamin D3) (Vitamin D3) 125 Mcg Tablet, 5,000 UNIT PO DAILY, (Reported) Dexamethasone (Decadron) 4 Mg Tablet, 2 TAB PO BID day before , day 1, day 2 of chemotherapy L.acidoph/L.bulg/B.bif/S.therm (Crissy-Bid Caplet) 1 Each Tablet, 1 EA PO DAILY Probiotic can be picked up over the counter Metronidazole (Metronidazole) 500 Mg Tablet, 500 MG PO Q8H Multivitamin (Multivitamins) 1 Each Capsule, 1 CAP PO DAILY, (Reported) [place]-3/Dha/Epa/Fish Oil ([place]-3 Fish Oil 1,000 mg Sfgl) 1,000 Mg Capsule, 1 CAP PO DAILY, (Reported) Scheduled PRN Acetaminophen (Acetaminophen) 500 Mg Tablet, 1,000 MG PO Q8HP PRN for PAIN / FEVER Aspirin/Acetaminophen/Caffeine (Excedrin Migraine Geltab) 1 Each Tablet, 2 TAB PO Q6H PRN for HEADACHE, (Reported) Diphenhydramine HCl (Diphenhydramine HCl) 25 Mg Capsule, 25 MG PO TID PRN for RASH/ITCHING, (Reported) Gabapentin (Gabapentin) 300 Mg Capsule, 300 MG PO QHS PRN for NERVE PAIN, (Reported) Ondansetron HCl (Ondansetron HCl) 8 Mg Tablet, 8 MG PO TID PRN for NAUSEA OR VOMITING, (Reported) Allergies Coded Allergies: Contrast Media (Verified Allergy, Severe, anaphylaxis, 11/20/19) cephalexin (Verified Allergy, Intermediate, rash, 11/20/19) pt reports had has dose of this recently and did not break out in a rash, but did feel itchy TAPE (Verified Allergy, Mild, RASH, 11/20/19) clindamycin (Verified Allergy, Unknown, RASH/ITCH, 11/25/19) oxycodone (Verified Allergy, Unknown, RASH, 03/11/20) tapentadol (Verified Adverse Reaction, Unknown, N/V, 03/11/20) WESTON MESA DO Mar 19, 2020 14:23
[2020-04-05] MEDS ORDERED: CIPR-249 PO (11:17)
== END 2020-03-19 12:38 | disposition home or self-care (01) | DRG 244 ==
LOC: M ED 10:39 → M ED INP 13:42 → ENRESERV 16:15 → M PCU 16:25
PROVIDERS: ADMIT Family Medicine; ATTEND Internal Medicine
DX: K57.80 Diverticulitis of intestine, part unspecified, with perforation and abscess without bleeding (principal); D70.1 Agranulocytosis secondary to cancer chemotherapy; C50.911 Malignant neoplasm of unspecified site of right female breast; C50.912 Malignant neoplasm of unspecified site of left female breast; E87.6 Hypokalemia; Z79.899 Other long term (current) drug therapy; Z91.041 Radiographic dye allergy status; Z88.8 Allergy status to other drugs, medicaments and biological substances; Z79.82 Long term (current) use of aspirin; K21.9 Gastro-esophageal reflux disease without esophagitis; Z90.11 Acquired absence of right breast and nipple; Z90.12 Acquired absence of left breast and nipple

== ENCOUNTER → 2020-04-22 | Outpatient (CLI) | payer BC ==
[~2020-04-22] MED LIST changes: +ACET-683 PO; +AMOX875T2 PO; +CIPR-249 PO; +METR-265 PO; +NAPR-885 PO; +RISATAB3 PO
== END ==
LOC: M LABSMTC 12:40
PROVIDERS: ATTEND Family Medicine
DX: Z20.828 Contact with and (suspected) exposure to other viral communicable diseases (principal)
CPT/HCPCS: C9803; U0003

== ENCOUNTER → 2020-06-08 | Outpatient (CLI) | payer BC ==
[~2020-06-08] MED LIST changes: +ANAS1TAB2 PO; +BACT800T5 PO; -CLIN300C5 PO; +CLIN300C6 PO; +FLAG500T PO; +META0.52 PO
--- NOTE | 2020-06-08 17:24 | DEXAMM ---
INDICATION: HX BREAST CA,ON AI. COMPARISON: None. TECHNIQUE: Bone density was measured using dual-energy x-ray absorptionmetry (DEXA). FINDINGS: AP SPINE L1-L4 BMD 1.129 g/cm2 Young Adult T-Score -0.5 Age Matched Z-Score 0.0. LT FEMUR, TOTAL BMD 1.075 g/cm2 Young Adult T-Score 0.5 Age Matched Z-Score 1.0. LT NECK BMD 0.933 g/cm2 Young Adult T-Score -0.8 Age Matched Z-Score 0.1. RT FEMUR, TOTAL BMD 1.060 g/cm2 Young Adult T-Score 0.4 Age Matched Z-Score 0.9. RT NECK BMD 0.928 g/cm2 Young Adult T-Score -0.8 Age Matched Z-Score 0.0. IMPRESSION: There is normal densitometry of the spine. There is normal bone densitometry of the left hip. There is normal bone densitometry of the right hip. FOLLOW-UP: Recommendation for the next bone density exam: 5 years. <Electronically signed by Grayson Cope > 06/08/20 [id number]
== END ==
LOC: M WHC 11:19
PROVIDERS: ATTEND Internal Medicine Hematology & Oncology
DX: Z85.3 Personal history of malignant neoplasm of breast (principal); Z79.899 Other long term (current) drug therapy

== ENCOUNTER → 2020-06-25 | Outpatient (CLI) | payer BC ==
[~2020-06-25] MED LIST changes: +MULT-90 PO
--- NOTE | 2020-06-25 14:35 | REP ---
INDICATION: R22.2 MASS OF RIGHT CHEST WALL/UPPER/PALPABLE. COMPARISON: None. TECHNIQUE: Right chest wall sonography. FINDINGS: Sonography is performed in the area of interest in the right chest wall superiorly. Normal subcutaneous and skeletal musculature is is visible. No cyst, mass, or suspicious acoustic shadowing. IMPRESSION: Unremarkable targeted ultrasound. No mass or cyst seen. <Electronically signed by Grayson Cope > 06/25/20 [id number]
== END ==
LOC: M WHC 09:06
PROVIDERS: ATTEND Surgery
DX: R22.2 Localized swelling, mass and lump, trunk (principal)

== ENCOUNTER → 2020-06-29 | Outpatient (CLI) | payer BC ==
[2020-06-29 13:05] LABS: BASO % 0.6 % (0.0-1.0); EOS # 0.7 10^3/uL (0.0-0.5); EOS % 10.5 % (0.0-3.0); HEMATOCRIT 44.7 % (36.0-47.0); HEMOGLOBIN 14.5 g/dl (12.0-15.5); LYMPH # 1.6 10^3/uL (1.5-5.0); MEAN CORPUSCULAR HEMOGLOBIN 29.2 pg (27.0-33.0); MEAN CORPUSCULAR HGB CONC 32.4 g/dl (32.0-36.5); MEAN CORPUSCULAR VOLUME 90.1 fl (80.0-96.0); MONO # 0.6 10^3/uL (0.0-0.8); MONO % 8.7 % (0.0-5.0); NEUTROPHILS # 3.4 10^3/uL (1.5-8.5); NEUTROPHILS % 54.6 % (36.0-66.0); PLATELET COUNT, AUTOMATED 284 10^3/uL (150-450); RED BLOOD COUNT 4.96 10^6/uL (4.00-5.40); WHITE BLOOD COUNT 6.3 10^3/uL (4.0-10.0)
[2020-06-29 13:18] LABS: ALBUMIN 3.7 GM/DL (3.2-5.2); ALT/SGPT 36 U/L (12-78); BILIRUBIN,TOTAL 0.3 MG/DL (0.2-1.0); BLOOD UREA NITROGEN 15 MG/DL (7-18); CALCIUM LEVEL 8.8 MG/DL (8.5-10.1); CARBON DIOXIDE LEVEL 26 MEQ/L (21-32); CHLORIDE LEVEL 108 MEQ/L (98-107); CHOLESTEROL LEVEL 228 MG/DL (<200); CHOLESTEROL RISK RATIO 4.145 (<5); CREATININE FOR GFR 0.68 MG/DL (0.55-1.30); GLOMERULAR FILTRATION RATE > 60.0 (>51); GLUCOSE, FASTING 105 MG/DL (70-100); HDL CHOLESTEROL 55 MG/DL (>40); LDL CHOLESTEROL 133 MG/DL (<100); MAGNESIUM LEVEL 2.5 MG/DL (1.8-2.4); NON-HDL-C 173 MG/DL; NT-PRO BNP 12 PG/ML (<125); POTASSIUM SERUM 3.9 MEQ/L (3.5-5.1); SODIUM LEVEL 141 MEQ/L (136-145); TOTAL PROTEIN 7.1 GM/DL (6.4-8.2); TRIGLYCERIDES LEVEL 201 MG/DL (<150)
[2020-06-29 13:22] LABS: HEMOGLOBIN A1c 5.6 %
== END ==
LOC: M PLALAB 10:48
PROVIDERS: ATTEND Internal Medicine Cardiovascular Disease
DX: E78.2 Mixed hyperlipidemia (principal); Z92.21 Personal history of antineoplastic chemotherapy; I47.2 Ventricular tachycardia

== ENCOUNTER → 2020-07-12 | Outpatient (REF) | payer BC ==
[2020-07-12 13:05] LABS: AMORPHOUS SEDIMENT SMALL (NEGATIVE); APPEARANCE, URINE TURBID (CLEAR); BACTERIA, URINE AUTO NEGATIVE (NEGATIVE); BILIRUBIN, URINE AUTO NEGATIVE (NEGATIVE); BLOOD, URINE BLOOD NEGATIVE (NEGATIVE); COLOR, URINE YELLOW (YELLOW); GLUCOSE, URINE (UA) AUTO NEGATIVE (NEGATIVE); KETONE, URINE AUTO NEGATIVE (NEGATIVE); LEUKOCYTE ESTERASE, URINE AUTO NEGATIVE (NEGATIVE); NITRITE, URINE AUTO NEGATIVE (NEGATIVE); PROTEIN, URINE AUTO NEGATIVE (NEGATIVE); RBC, URINE AUTO 0 /HPF (0-3); SPECIFIC GRAVITY URINE AUTO 1.023 (1.002-1.035); SQUAMOUS EPITHELIAL CELL UR AU 0 /HPF (0-6); UROBILINOGEN, URINE AUTO 0.2 mg/dL (0.0-2.0); WBC, URINE AUTO 0 /HPF (0-3)
== END ==
LOC: M LAB REF 12:18
PROVIDERS: ATTEND Internal Medicine
DX: Z01.818 Encounter for other preprocedural examination (principal)

== ENCOUNTER → 2020-07-25 | Outpatient (CLI) | payer BC ==
[~2020-07-25] MED LIST changes: +GABA-282 PO; -GABA-843 PO; +ROSU20TA5
== END ==
LOC: M LABSMTC 08:59
PROVIDERS: ATTEND Anesthesiology
DX: Z01.812 Encounter for preprocedural laboratory examination (principal); Z20.822 Contact with and (suspected) exposure to COVID-19

== ENCOUNTER 2020-07-30 07:37 | Day surgery (SDC) | payer BC ==
[~2020-07-30] VITALS: Ht 157.5 cm; Wt 76.2 kg
[~2020-07-30 07:37] MED LIST changes: +LIDOCAINE 2% 100MG/5ML SDV (FOR ANES.) As Ordered ONE; +NS 1,000 ML IV ONE; +propofoL 200 MG/20 ML VIAL As Ordered ONE
--- OUTSIDE RECORDS SUMMARY | 2020-07-30 07:41 | CCD | Continuity of Care Document ---
Author Author Lab Schedule, [employer] Organization Unknown Address [address] [address] Phone Unavailable Care Team Providers Care Vamp Strap Ironer Name Role Phone Geni Conti SQE AUTM [phone] [facility] Hematology/Oncology AUTM [phone] Problems Active Problems Provider Date History of bilateral mastectomy Arlyn Adams M.D. Onse t: 11/24/2019 Infiltrating ductal carcinoma of breast, stage 3 Arlyn Velasco M.D. Onset: 11/24/2019 Social History Type Date Description Comments Sex Unknown Tobacco Use Start: Unknown Never Smoked Cigarettes ETOH Use Occasionally consumes alcohol so cial drinker Tobacco Use Start: Unknown Patient has never smoked Exercise Type/Frequency Exercises regularly Exercise Type/Frequency Does not exercise Guns in Home No Allergies, Adverse Reactions, Alerts Active Allergies Reaction Severity Comments Date Clindamycin macular, papular rash 2019 Cephalexin Itching rash 11/20/19 03/22/2020 Contrast Dye Severe ANAPHYLAXIS 11/20/19 0 Percocet rash 03/22/2020 Inactive Allergies NKDA 09/18/2017 NKDA 10/28/2019 Medications Active Medications SIG Qnty Indications Ordering Provide r Date Metamucil 28% Packet 1 q layo po Arlyn Adams M.D. 06/01/2020 Probiotic Capsules 1 by mouth every day Arlyn Adams M.D. 03/22/2020 Vitamin D3 125mcg (5000 Ut) Capsul es 1 by mouth every day Cris Hickey,ALEX 03/19/2020 Excedrin Migraine [phone] Tab lets 2 q 6hrs prn po migraine Arlyn Adams M.D. 05/2020 Acetaminophen 500mg Tablets 2 by mouth every 8 hours as needed for pain Arlyn harmon M.D. 03/19/2020 Benadryl Allergy 25mg Tablets 1 po q6h prn rash Arlyn Adams M.D. 11/28/19 20 Multivitamin Adult Tablets 1 by mouth every day Phyl Moeller, SQE 09/18/2017 Gabapentin 300mg Capsules 1 PO QHS prn Nerve Pain Onc Arlyn Adams M.D. History Medications Cefuroxime Axetil 500mg Tablets 1 by mouth twice a day x 10day Unknown 05/29/2020 - 06/24/2020 Metronidazole 500mg Tablets one by mouth bid Unknown 03/29/2020 - Ondansetron HCL 8mg Tablets take one tablet by mouth as needed as needed three times a day for nausea Arlyn Adams M.D. 03/19/2020 - 06/24/2020 Amoxicillin/Clavulanate Potassium 875-125mg Tablets 1 by mouth twice a day x 7days Unknown 03/19/2020 - 06/01/2020 Immunizations Description No Information Available Vital Signs Date Vital Result Comment 06/24/2020 10:09am BP Systolic 116 mmHg RT Arm BP Diastolic 74 mmHg RT Arm Heart Rate 80 /min Height 62.0 inches 5'2" Weight 170.00 lb O2 % BldC Oximetry 97 % RM Air O2 Saturation Level with Exercise 97 % RM Air BMI (Body Mass Index) 31.1 kg/m2 03/25/2020 9:48am BP Systolic 108 mmHg RT Arm BP Diastolic 70 mmHg RT Arm Heart Rate 116 /min Height 62.0 inches 5'2" Weight 169.12 lb O2 Saturation Level with Exercise 92 % RM Air BMI (Body Mass Index) 30.9 kg/m2 Results Test Acquired Date Facility Test Result H/L Range Note Ua Routine 07/12/2020 [facility] nter [address] [place], [place] [id number] [phone] Appearance, Urine TURBID High Clear Color, Urine YELLOW Normal Yellow PH,Urine 5.0 units Normal 5.0-9.0 Specific [place] Urine Auto 1.023 Normal 1.002-1.035 Protein, Urine Auto NEGATIVE mg/dL Normal Negative Glucose, Urine (Ua) Auto NEGATIVE mg/dL Normal Negative Ketone, Urine Auto NEGATIVE mg/dL Normal Negative Urobilinogen, Urine Auto 0.2 mg/dL Normal 0.0-2.0 Bilirubin, Urine Auto NEGATIVE Normal Negative Nitrite, Urine Auto NEGATIVE Normal Negative Leukocyte Esterase, Urine Auto NEGATIVE Normal Negative Blood, Urine Blood NEGATIVE Normal Negative WBC, Urine Auto 0 /HPF Normal 0-3 RBC, Urine Auto 0 /HPF Normal 0-3 Bacteria, Urine Auto NEGATIVE Normal Negative Squamous Epithelial Cell Ur AU 0 /HPF Normal 0-6 Hyaline Cast, Urine Auto 0 /LPF Normal 0-1 Amorphous Sediment SMALL High Negative Laboratory test finding 07/12/2020 [facility] [address] [place] [address] [phone] HCG, Serum Quantitative < 1.0 MIU/ML Normal 1 Complete Blood Count 07/12/2020 [facility] Specialist: [place] [address] [phone] WBC 6.3 x10*3/UL 4.1 - 10.9 RBC 4.91 x10*6/UL 4.20 - 6.30 Hemoglobin 14.5 g/dL 12.0 - 18.0 Hematocrit 41.9 % 37.0 - 51.0 MCV 85.3 fL 80.0 - 97.0 MCH 29.5 pg 26.0 - 32.0 MCHC 34.6 g/dL 31.0 - 38.0 RDW 14.2 % High 11.6 - 13.7 PLT 298 x10*3/UL 140 - 440 MPV 9.5 FL 7.8 - 11.0 Lymph % 24.6 % 10.0 - 58.5 Mid % 6.1 % 1.7 - 9.3 Neut % 69.3 % 37.0 - 92.0 Lymph # 1.5 x10*3/UL 0.6 - 4.1 Mid # 0.5 x10*3/UL 0.1 - 0.6 Neut # 4.3 x10*3/UL 2.0 - 7.8 Comprehensive Chem Profile 07/12/2020 [facility] Specialist: [place] [address] [phone] Glucose 109 mg/dL High 74 - 99 2 BUN 14 mg/dL 7 - 18 Creatinine 0.6 mg/dL 0.6 - 1.3 Sodium 139 mEq/L 136 - 145 Potassium 4.1 mEq/L 3.5 - 5.1 Chloride 103 mEq/L 98 - 107 Carbon Dioxide 26 mEq/L 21 - 32 Calcium 8.7 mg/dL 8.5 - 10.1 Alk. Phosphatase 69 mg/dL 46 - 116 Total Bilirubin 0.3 mg/dL 0.2 - 1.0 Ast (Sgot) 21 U/L 15 - 37 Alt (SGPT) 36 U/L 12 - 78 Albumin 3.9 g/dL 3.4 - 5.0 Total Protein 7.1 g/dL 6.4 - 8.2 A/G Ratio 1.22 CALC 1.00 - 1.90 GFR >= 60 mL/min >60 GFR >= 60 mL/min >60 3 CBC With Differential 05/24/2020 [place] [id number] [phone] White Blood Count 6.9 10 Normal 4.0-10.0 Red Blood Count 4.35 10 Normal 4.00-5.40 Hemoglobin 12.0 g/dL Normal 12.0-15.5 Hematocrit 38.3 % Normal 36.0-47.0 Mean Corpuscular Volume 88.0 fl Normal 80.0-96.0 Mean Corpuscular Hemoglobin 27.6 pg Normal 27.0-33.0 Mean Corpuscular HGB Conc 31.3 g/dL Low 32.0-36.5 Red Cell Distribution Width 16.3 % High 11.5-14.5 Platelet Count, Automated 447 10 Normal 150-450 Neutrophils % 60.1 % Normal 36.0-66.0 Lymph % 26.9 % Normal 24.0-44.0 [place] % 10.1 % High 0.0-5.0 Eos % 0.3 % Normal 0.0-3.0 Baso % 0.9 % Normal 0.0-1.0 Immature Granulocyte % 1.7 % Normal 0-3.0 Nucleated Red Blood Cell % 0.0 % Normal 0-0 Neutrophils # 4.2 10 Normal 1.5-8.5 Lymph # 1.9 10 Normal 1.5-5.0 [place] # 0.7 10 Normal 0.0-0.8 Eos # 0.0 10 Normal 0.0-0.5 Baso # 0.1 10 Normal 0.0-0.2 Comprehensive Metabolic Profil 05/24/[address] [id number] [phone] Glucose, Fasting 94 mg/dL Normal 70-100 Blood Urea Nitrogen 13 mg/dL Normal 7-18 Creatinine For GFR 0.65 mg/dL Normal 0.55-1.30 Glomerular Filtration Rate > 60.0 Normal >51 4 Sodium Level 140 mEq/L Normal 136-145 Potassium Serum 3.6 mEq/L Normal 3.5-5.1 Chloride Level 107 mEq/L Normal 98-107 Carbon Dioxide Level 27 mEq/L Normal 21-32 Anion Gap 6 mEq/L Low 8-16 Calcium Level 9.1 mg/dL Normal 8.5-10.1 Ast/Sgot 11 U/L Normal 7-37 Alt/SGPT 17 U/L Normal 12-78 Alkaline Phosphatase 58 U/L Normal 45-117 Bilirubin,Total 0.3 mg/dL Normal 0.2-1.0 Total Protein 7.5 GM/DL Normal 6.4-8.2 Albumin 3.8 GM/DL Normal 3.2-5.2 Albumin/Globulin Ratio 1.0 Low 1.2-2.2 CBC With Differential 05/03/[address] [address] [phone] White Blood Count 5.7 10 Normal 4.0-10.0 Red Blood Count 4.46 10 Normal 4.00-5.40 Hemoglobin 12.2 g/dL Normal 12.0-15.5 Hematocrit 39.4 % Normal 36.0-47.0 Mean Corpuscular Volume 88.3 fl Normal 80.0-96.0 Mean Corpuscular Hemoglobin 27.4 pg Normal 27.0-33.0 Mean Corpuscular HGB Conc 31.0 g/dL Low 32.0-36.5 Red Cell Distribution Width 16.4 % High 11.5-14.5 Platelet Count, Automated 405 10 Normal 150-450 Neutrophils % 54.8 % Normal 36.0-66.0 Lymph % 31.5 % Normal 24.0-44.0 [place]ot % 8.9 % High 0.0-5.0 Eos % 2.1 % Normal 0.0-3.0 Baso % 1.6 % High 0.0-1.0 Immature Granulocyte % 1.1 % Normal 0-3.0 Nucleated Red Blood Cell % 0.0 % Normal 0-0 Neutrophils # 3.1 10 Normal 1.5-8.5 Lymph # 1.8 10 Normal 1.5-5.0 Ch[place]ot # 0.5 10 Normal 0.0-0.8 Eos # 0.1 10 Normal 0.0-0.5 Baso # 0.1 10 Normal 0.0-0.2 Comprehensive Metabolic Profil 05/03/[address] [address] [phone] Glucose, Fasting 120 mg/dL High 70-100 Blood Urea Nitrogen 16 mg/dL Normal 7-18 Creatinine For GFR 0.72 mg/dL Normal 0.55-1.30 Glomerular Filtration Rate > 60.0 Normal >51 5 Sodium Level 139 mEq/L Normal 136-145 Potassium Serum 3.9 mEq/L Normal 3.5-5.1 Chloride Level 106 mEq/L Normal 98-107 Carbon Dioxide Level 24 mEq/L Normal 21-32 Anion Gap 9 mEq/L Normal 8-16 Calcium Level 9.1 mg/dL Normal 8.5-10.1 Ast/Sgot 17 U/L Normal 7-37 Alt/SGPT 25 U/L Normal 12-78 Alkaline Phosphatase 56 U/L Normal 45-117 Bilirubin,Total 0.3 mg/dL Normal 0.2-1.0 Total Protein 7.7 GM/DL Normal 6.4-8.2 Albumin 3.5 GM/DL Normal 3.2-5.2 Albumin/Globulin Ratio 0.8 Low 1.2-2.2 Coronavirus 2019 Nasopharygeal 04/22/[address] [address] [phone] Coronavirus 2019 Nasopharygeal This nucleic aci <SEE N OTE> 6 CBC With Differential 04/05/[address] [address] [phone] White Blood Count 5.4 10 Normal 4.0-10.0 Red Blood Count 4.52 10 Normal 4.00-5.40 Hemoglobin 12.7 g/dL Normal 12.0-15.5 Hematocrit 40.0 % Normal 36.0-47.0 Mean Corpuscular Volume 88.5 fl Normal 80.0-96.0 Mean Corpuscular Hemoglobin 28.1 pg Normal 27.0-33.0 Mean Corpuscular HGB Conc 31.8 g/dL Low 32.0-36.5 Red Cell Distribution Width 15.7 % High 11.5-14.5 Platelet Count, Automated 329 10 Normal 150-450 Neutrophils % 84.4 % High 36.0-66.0 Lymph % 12.1 % Low 24.0-44.0 [place]ot % 2.2 % Normal 0.0-5.0 Eos % 0.0 % Normal 0.0-3.0 Baso % 0.4 % Normal 0.0-1.0 Immature Granulocyte % 0.9 % Normal 0-3.0 Nucleated Red Blood Cell % 0.0 % Normal 0-0 Neutrophils # 4.5 10 Normal 1.5-8.5 Lymph # 0.7 10 Low 1.5-5.0 [place] # 0.1 10 Normal 0.0-0.8 Eos # 0.0 10 Normal 0.0-0.5 Baso # 0.0 10 Normal 0.0-0.2 Comprehensive Metabolic Profil 04/05/[address] [address] [phone] Glucose, Fasting 137 mg/dL High 70-100 Blood Urea Nitrogen 16 mg/dL Normal 7-18 Creatinine For GFR 0.70 mg/dL Normal 0.55-1.30 Glomerular Filtration Rate > 60.0 Normal >51 7 Sodium Level 139 mEq/L Normal 136-145 Potassium Serum 3.9 mEq/L Normal 3.5-5.1 Chloride Level 109 mEq/L High 98-107 Carbon Dioxide Level 23 mEq/L Normal 21-32 Anion Gap 7 mEq/L Low 8-16 Calcium Level 8.8 mg/dL Normal 8.5-10.1 Ast/Sgot 12 U/L Normal 7-37 Alt/SGPT 21 U/L Normal 12-78 Alkaline Phosphatase 63 U/L Normal 45-117 Bilirubin,Total 0.3 mg/dL Normal 0.2-1.0 Total Protein 7.8 GM/DL Normal 6.4-8.2 Albumin 3.4 GM/DL Normal 3.2-5.2 Albumin/Globulin Ratio 0.8 Low 1.2-2.2 CBC With Differential 03/29/[address] [address] [phone] White Blood Count 8.4 10 Normal 4.0-10.0 Red Blood Count 4.17 10 Normal 4.00-5.40 Hemoglobin 11.7 g/dL Low 12.0-15.5 Hematocrit 36.5 % Normal 36.0-47.0 Mean Corpuscular Volume 87.5 fl Normal 80.0-96.0 Mean Corpuscular Hemoglobin 28.1 pg Normal 27.0-33.0 Mean Corpuscular HGB Conc 32.1 g/dL Normal 32.0-36.5 Red Cell Distribution Width 15.7 % High 11.5-14.5 Platelet Count, Automated 593 10 High 150-450 Neutrophils % 64.5 % Normal 36.0-66.0 Lymph % 20.9 % Low 24.0-44.0 [place]ot % 10.2 % High 0.0-5.0 Eos % 0.8 % Normal 0.0-3.0 Baso % 1.1 % High 0.0-1.0 Immature Granulocyte % 2.5 % Normal 0-3.0 Nucleated Red Blood Cell % 0.0 % Normal 0-0 Neutrophils # 5.4 10 Normal 1.5-8.5 Lymph # 1.8 10 Normal 1.5-5.0 Ch[place]ot # 0.9 10 High 0.0-0.8 Eos # 0.1 10 Normal 0.0-0.5 Baso # 0.1 10 Normal 0.0-0.2 Comprehensive Metabolic Profil 03/29/[address] [address] [phone] Glucose, Fasting 104 mg/dL High 70-100 Blood Urea Nitrogen 15 mg/dL Normal 7-18 Creatinine For GFR 0.53 mg/dL Low 0.55-1.30 Glomerular Filtration Rate > 60.0 Normal >51 8 Sodium Level 140 mEq/L Normal 136-145 Potassium Serum 3.7 mEq/L Normal 3.5-5.1 Chloride Level 108 mEq/L High 98-107 Carbon Dioxide Level 26 mEq/L Normal 21-32 Anion Gap 6 mEq/L Low 8-16 Calcium Level 8.9 mg/dL Normal 8.5-10.1 Ast/Sgot 15 U/L Normal 7-37 Alt/SGPT 19 U/L Normal 12-78 Alkaline Phosphatase 62 U/L Normal 45-117 Bilirubin,Total 0.2 mg/dL Normal 0.2-1.0 Total Protein 7.5 GM/DL Normal 6.4-8.2 Albumin 3.1 GM/DL Low 3.2-5.2 Albumin/Globulin Ratio 0.7 Low 1.2-2.2 Basic Metabolic Panel 03/25/2020 [facility] Specialist: [place] [address] [phone] Glucose 100 mg/dL High 74 - 99 9 BUN 16 mg/dL 7 - 18 Creatinine 0.6 mg/dL 0.6 - 1.3 Sodium 140 mEq/L 136 - 145 Potassium 4.7 mEq/L 3.5 - 5.1 Chloride 103 mEq/L 98 - 107 Carbon Dioxide 26 mEq/L 21 - 32 Calcium 9.1 mg/dL 8.5 - 10.1 GFR >= 60 mL/min >60 GFR >= 60 mL/min >60 10 Laboratory test finding 03/25/2020 [facility] Specialist: [place] [address] [phone] Magnesium 2.2 mg/dL 1.8 - 2.4 Complete Blood Count 03/25/2020 [facility] Specialist: [place] [address] [phone] WBC 12.6 x10*3/UL High 4.1 - 10.9 RBC 4.48 x10*6/UL 4.20 - 6.30 Hemoglobin 12.5 g/dL 12.0 - 18.0 Hematocrit 36.6 % Low 37.0 - 51.0 MCV 81.7 fL 80.0 - 97.0 MCH 28.1 pg 26.0 - 32.0 MCHC 34.3 g/dL 31.0 - 38.0 RDW 15.0 % High 11.6 - 13.7 PLT 678 x10*3/UL High 140 - 440 11 MPV 8.4 FL 7.8 - 11.0 Lymph % 13.6 % 10.0 - 58.5 Mid % 5.1 % 1.7 - 9.3 Neut % 81.3 % 37.0 - 92.0 Lymph # 1.7 x10*3/UL 0.6 - 4.1 Mid # 0.6 x10*3/UL 0.1 - 0.6 Neut # 10.3 x10*3/UL High 2.0 - 7.8 Laboratory test finding 03/11/2020 [facility] [address] [place] [address] [phone] Lipase 57 U/L Low 73-393 Basic Metabolic Profile 03/11/2020 [place] [id number] [phone] Glucose, Fasting 113 mg/dL High 70-100 Blood Urea Nitrogen 12 mg/dL Normal 7-18 Creatinine For GFR 0.61 mg/dL Normal 0.55-1.30 Glomerular Filtration Rate > 60.0 Normal >51 1 2 Sodium Level 139 mEq/L Normal 136-145 Potassium Serum 3.5 mEq/L Normal 3.5-5.1 Chloride Level 103 mEq/L Normal 98-107 Carbon Dioxide Level 28 mEq/L Normal 21-32 Anion Gap 8 mEq/L Normal 8-16 Calcium Level 8.9 mg/dL Normal 8.5-10.1 Liver Profile 03/11/2020 [facility] nter [address] [place] [id number] [phone] Ast/Sgot 9 U/L Normal 7-37 Alt/SGPT 23 U/L Normal 12-78 Alkaline Phosphatase 68 U/L Normal 45-117 Bilirubin,Total 0.6 mg/dL Normal 0.2-1.0 Bilirubin,Direct 0.1 mg/dL Normal 0.0-0.2 Total Protein 6.8 GM/DL Normal 6.4-8.2 Albumin 3.1 GM/DL Low 3.2-5.2 Albumin/Globulin Ratio 0.8 Low 1.2-2.2 Cardiac Marker Panel 03/11/2020 [facility] enter [address] [place] [address] [phone] CPK Creatine Phosphokinase 34 U/L Normal 26-19 2 CK-MB Value Mass < 1.0 NG/ML Normal <3.6 MB/CK Relative Index 2.94 Normal < Or =4 13 Troponin I < 0.02 NG/ML Normal < 0.10 14 Laboratory test finding 03/11/[address] [address] [phone] Lactic Acid Sepsis Protocol 1.4 mmol/L Normal 0.4- 2.0 15 Laboratory test finding 03/11/[address] [address] [phone] Platelet Estimate NORMAL Normal Normal Differential 03/11/2020 [facility] nter [address] [place] [phone] Neutrophils 96 % High 28-66 Lymphocytes 4 % Low 16-44 Anisocytosis 1+ Normal CBC With Differential 03/11/[address] [address] [phone] White Blood Count 12.8 10 High 4.0-10.0 Red Blood Count 4.16 10 Normal 4.00-5.40 Hemoglobin 11.8 g/dL Low 12.0-15.5 Hematocrit 36.2 % Normal 36.0-47.0 Mean Corpuscular Volume 87.0 fl Normal 80.0-96.0 Mean Corpuscular Hemoglobin 28.4 pg Normal 27.0-33.0 Mean Corpuscular HGB Conc 32.6 g/dL Normal 32.0-36.5 Red Cell Distribution Width 15.1 % High 11.5-14.5 Platelet Count, Automated 277 10 Normal 150-450 Nucleated Red Blood Cell % 0.0 % Normal 0-0 Prothrombin Time/Inr 03/11/2020 [facility] enter [address] [place] [phone] Prothrombin Time 16.8 seconds High 11.8-14.0 Inr 1.33 Normal 16 CBC With Differential 03/08/[address] [address] [phone] White Blood Count 19.9 10 High 4.0-10.0 Red Blood Count 4.27 10 Normal 4.00-5.40 Hemoglobin 12.4 g/dL Normal 12.0-15.5 Hematocrit 38.0 % Normal 36.0-47.0 Mean Corpuscular Volume 89.0 fl Normal 80.0-96.0 Mean Corpuscular Hemoglobin 29.0 pg Normal 27.0-33.0 Mean Corpuscular HGB Conc 32.6 g/dL Normal 32.0-36.5 Red Cell Distribution Width 14.6 % High 11.5-14.5 Platelet Count, Automated 453 10 High 150-450 Neutrophils % 86.3 % High 36.0-66.0 Lymph % 7.3 % Low 24.0-44.0 [place]ot % 4.3 % Normal 0.0-5.0 Eos % 0.0 % Normal 0.0-3.0 Baso % 0.2 % Normal 0.0-1.0 Immature Granulocyte % 1.9 % Normal 0-3.0 Nucleated Red Blood Cell % 0.0 % Normal 0-0 Neutrophils # 17.2 10 High 1.5-8.5 Lymph # 1.5 10 Normal 1.5-5.0 [place]ot # 0.9 10 High 0.0-0.8 Eos # 0.0 10 Normal 0.0-0.5 Baso # 0.0 10 Normal 0.0-0.2 Comprehensive Metabolic Profil 03/08/2020 [place] [id number] [phone] Glucose, Fasting 252 mg/dL High 70-100 Blood Urea Nitrogen 16 mg/dL Normal 7-18 Creatinine For GFR 0.76 mg/dL Normal 0.55-1.30 Glomerular Filtration Rate > 60.0 Normal >51 1 7 Sodium Level 139 mEq/L Normal 136-145 Potassium Serum 3.8 mEq/L Normal 3.5-5.1 Chloride Level 109 mEq/L High 98-107 Carbon Dioxide Level 21 mEq/L Normal 21-32 Anion Gap 9 mEq/L Normal 8-16 Calcium Level 9.0 mg/dL Normal 8.5-10.1 Ast/Sgot 16 U/L Normal 7-37 Alt/SGPT 35 U/L Normal 12-78 Alkaline Phosphatase 72 U/L Normal 45-117 Bilirubin,Total 0.2 mg/dL Normal 0.2-1.0 Total Protein 7.5 GM/DL Normal 6.4-8.2 Albumin 3.5 GM/DL Normal 3.2-5.2 Albumin/Globulin Ratio 0.9 Low 1.2-2.2 CBC With Differential 02/16/2020 [place] [address] [place], [place] [id number] [phone] White Blood Count 16.7 10 High 4.0-10.0 Red Blood Count 4.65 10 Normal 4.00-5.40 Hemoglobin 13.3 g/dL Normal 12.0-15.5 Hematocrit 40.9 % Normal 36.0-47.0 Mean Corpuscular Volume 88.0 fl Normal 80.0-96.0 Mean Corpuscular Hemoglobin 28.6 pg Normal 27.0-33.0 Mean Corpuscular HGB Conc 32.5 g/dL Normal 32.0-36.5 Red Cell Distribution Width 13.5 % Normal 11.5-14.5 Platelet Count, Automated 321 10 Normal 150-450 Neutrophils % 88.0 % High 36.0-66.0 Lymph % 7.3 % Low 24.0-44.0 [place]ot % 3.5 % Normal 0.0-5.0 Eos % 0.0 % Normal 0.0-3.0 Baso % 0.1 % Normal 0.0-1.0 Immature Granulocyte % 1.1 % Normal 0-3.0 Nucleated Red Blood Cell % 0.0 % Normal 0-0 Neutrophils # 14.7 10 High 1.5-8.5 Lymph # 1.2 10 Low 1.5-5.0 [place] # 0.6 10 Normal 0.0-0.8 Eos # 0.0 10 Normal 0.0-0.5 Baso # 0.0 10 Normal 0.0-0.2 Comprehensive Metabolic Profil 02/16/[address] [address] [phone] Glucose, Fasting 197 mg/dL High 70-100 Blood Urea Nitrogen 17 mg/dL Normal 7-18 Creatinine For GFR 0.85 mg/dL Normal 0.55-1.30 Glomerular Filtration Rate > 60.0 Normal >51 1 8 Sodium Level 139 mEq/L Normal 136-145 Potassium Serum 3.6 mEq/L Normal 3.5-5.1 Chloride Level 108 mEq/L High 98-107 Carbon Dioxide Level 24 mEq/L Normal 21-32 Anion Gap 7 mEq/L Low 8-16 Calcium Level 9.4 mg/dL Normal 8.5-10.1 Ast/Sgot 15 U/L Normal 7-37 Alt/SGPT 26 U/L Normal 12-78 Alkaline Phosphatase 62 U/L Normal 45-117 Bilirubin,Total 0.2 mg/dL Normal 0.2-1.0 Total Protein 7.8 GM/DL Normal 6.4-8.2 Albumin 4.0 GM/DL Normal 3.2-5.2 Albumin/Globulin Ratio 1.1 Low 1.2-2.2 CBC With Differential 02/11/[address] [id number] [phone] White Blood Count 5.9 10 Normal 4.0-10.0 Red Blood Count 4.75 10 Normal 4.00-5.40 Hemoglobin 13.7 g/dL Normal 12.0-15.5 Hematocrit 42.9 % Normal 36.0-47.0 Mean Corpuscular Volume 90.3 fl Normal 80.0-96.0 Mean Corpuscular Hemoglobin 28.8 pg Normal 27.0-33.0 Mean Corpuscular HGB Conc 31.9 g/dL Low 32.0-36.5 Red Cell Distribution Width 13.4 % Normal 11.5-14.5 Platelet Count, Automated 296 10 Normal 150-450 Neutrophils % 48.4 % Normal 36.0-66.0 Lymph % 38.6 % Normal 24.0-44.0 [place]ot % 7.5 % High 0.0-5.0 Eos % 3.6 % High 0.0-3.0 Baso % 0.9 % Normal 0.0-1.0 Immature Granulocyte % 1.0 % Normal 0-3.0 Nucleated Red Blood Cell % 0.0 % Normal 0-0 Neutrophils # 2.8 10 Normal 1.5-8.5 Lymph # 2.3 10 Normal 1.5-5.0 [place] # 0.4 10 Normal 0.0-0.8 Eos # 0.2 10 Normal 0.0-0.5 Baso # 0.1 10 Normal 0.0-0.2 Comprehensive Metabolic Profil 02/11/2020 [place] [id number] [phone] Glucose, Fasting 106 mg/dL High 70-100 Blood Urea Nitrogen 13 mg/dL Normal 7-18 Creatinine For GFR 0.64 mg/dL Normal 0.55-1.30 Glomerular Filtration Rate > 60.0 Normal >51 1 9 Sodium Level 140 mEq/L Normal 136-145 Potassium Serum 3.7 mEq/L Normal 3.5-5.1 Chloride Level 110 mEq/L High 98-107 Carbon Dioxide Level 26 mEq/L Normal 21-32 Anion Gap 4 mEq/L Low 8-16 Calcium Level 9.0 mg/dL Normal 8.5-10.1 Ast/Sgot 18 U/L Normal 7-37 Alt/SGPT 30 U/L Normal 12-78 Alkaline Phosphatase 62 U/L Normal 45-117 Bilirubin,Total 0.5 mg/dL Normal 0.2-1.0 Total Protein 7.3 GM/DL Normal 6.4-8.2 Albumin 4.0 GM/DL Normal 3.2-5.2 Albumin/Globulin Ratio 1.2 Normal 1.2-2.2 1 GESTATIONAL AGE APPROXIMATE HCG RANGE (MIU/ML) - 0.2-1 WEEK 5-50 1-2 WEEKS 50-500 2-3 WEEKS 100-5,000 3-4 WEEKS 500-10,000 4-5 WEEKS 1,000-50,000 5-6 WEEKS 10,000-100,000 6-8 WEEKS 15,000-200,000 2-3 MONTHS 10,000-100,00 0 NON FEMALES LESS THAN 3.0 Patient samples may contain human heterophilic antibodies that could react with immunoassays to give falsely elevated or depressed results. This assay has been designed to minimize interference from heterophilic antibodies. Elevated hCG levels have also been associated with trophoblastic disease and nontrophoblastic neoplasms. The possibility of having these diseases should be considered before a diagnosis of is made. This test is not intended for use as a surrogate marker for aiding in the diagnosis or monitoring the treatment of cancer patients. [employer] methodology. 2 100-125 mg/dL PRE-DIABET ES/FASTING >126 mg/dL DIABETES/FASTING 3 CHRONIC KIDNEY DISEASE STAGI NG PER NKF STAGE I & II GFR >= 60 NORMAL TO MILDLY DECREASED STAGE III GFR 30-59 MODERATELY DECREASED STAGE IV GFR 15-29 SEVERELY DECREASED STAGE V GFR <15 VERY LITTLE GFR LEFT ESRD GFR <15 ON [employer] 4 Units are mL/min/1.73 m2 Chronic Kidney Disease Staging per NKF: Stage I & II GFR >=60 Normal to Mildly Decreased Stage III GFR 30-59 Moderately Decreased Stage IV GFR 15-29 Severely Decreased Stage V GFR <15 Very Little GFR Left ESRD GFR <15 on [employer] 5 Units are mL/min/1.73 m2 Chronic Kidney Disease Staging per NKF: Stage I & II GFR >=60 Normal to Mildly Decreased Stage III GFR 30-59 Moderately Decreased Stage IV GFR 15-29 Severely Decreased Stage V GFR <15 Very Little GFR Left ESRD GFR <15 on [employer] 6 This nucleic acid amplificat ion test was developed and its performance characteristics determined by [employer]. Nucleic acid amplification tests include PCR and TMA. This test has not been FDA cleared or approved. This test has been authorized by FDA under an Emergency Use Authorization (EUA). This test is only authorized for the duration of time the declaration that circumstances exist justifying the authorization of the emergency use of in vitro diagnostic tests for detection of SARS-CoV-2 virus and/or diagnosis of COVID-19 infection under section 564(b)(1) of the Act, 21 U.S.C. 360bbb-3 (b) (1), unless the authorization is terminated or revoked sooner. When diagnostic testing is negative, the possibility of a false negative result should be considered in the context of a patient's recent exposures and the presence of clinical signs and symptoms consistent with COVID-19. An individual without symptoms of COVID-19 and who is not shedding SARS-CoV-2 virus would expect to have a negative (not detected) result in this assay. Performed at: [facility] [id number] [employer] Specialist: Julia Garcia MD, Phone: [phone] Not Detected 7 Units are mL/min/1.73 m2 Chronic Kidney Disease Staging per NKF: Stage I & II GFR >=60 Normal to Mildly Decreased Stage III GFR 30-59 Moderately Decreased Stage IV GFR 15-29 Severely Decreased Stage V GFR <15 Very Little GFR Left ESRD GFR <15 on [employer] 8 Units are mL/min/1.73 m2 Chronic Kidney Disease Staging per NKF: Stage I & II GFR >=60 Normal to Mildly Decreased Stage III GFR 30-59 Moderately Decreased Stage IV GFR 15-29 Severely Decreased Stage V GFR <15 Very Little GFR Left ESRD GFR <15 on [employer] 9 100-125 mg/dL PRE-DIABET ES/FASTING >126 mg/dL DIABETES/FASTING 10 CHRONIC KIDNEY DISEASE STAGI NG PER NKF STAGE I & II GFR >= 60 NORMAL TO MILDLY DECREASED STAGE III GFR 30-59 MODERATELY DECREASED STAGE IV GFR 15-29 SEVERELY DECREASED STAGE V GFR <15 VERY LITTLE GFR LEFT ESRD GFR <15 ON [employer] 11 NOTE: RESULT VERIFIED. 12 Units are mL/min/1.73 m2 Chronic Kidney Disease Staging per NKF: Stage I & II GFR >=60 Normal to Mildly Decreased Stage III GFR 30-59 Moderately Decreased Stage IV GFR 15-29 Severely Decreased Stage V GFR <15 Very Little GFR Left ESRD GFR <15 on [employer] 13 DIAGNOSIS CRITERIA MMB ng/ml Relative Index (RI) NON-AMI < or = 5 N/A LEE ZONE > 5 < or = 4 AMI > 5 > 4 14 Troponin I Reference Interva l for Involver LOCI: 99th Percentile= 0.00-0.045 ng/ml Risk Stratification: <= 0.10 ng/ml Decreased Risk for Adverse Clinical Events. 0.10-1.50 ng/ml Increased Risk for Adv erse Clinical Events. Evaluation of additional criterion and/or repeat testing in 2-6 hours is suggested to rule out myocardial damage. >= 1.50 ng/ml Indicative of Myocardial Injury. 15 Y/N query for Sepsis Lactate Rule: Y 16 THERAPUTIC HUMAN INR VALUES INDICATIONS NORMAL RANGES PROPHYLAXIS/TREATMENT OF: VENOUS THROMBOSIS 2.0-3.0 PULMONARY EMBOLISM 2.0-3.0 PREVENTION OF SYSTEMIC EMBOLISM FROM: TISSUE HEART VALVES 2.0-3.0 ACUTE MYOCARDIAL INFARCTION 2.0-3.0 VALVULAR HEART DISEASE 2.0-3.0 ATRIAL FIBRILLATION 2.0-3.0 MECHANICAL VALVES(HIGH RISK) 2.5-3.5 RECURRENT MYOCARDIAL INFARCTION 2.5-3.5 17 Units are mL/min/1.73 m2 Chronic Kidney Disease Staging per NKF: Stage I & II GFR >=60 Normal to Mildly Decreased Stage III GFR 30-59 Moderately Decreased Stage IV GFR 15-29 Severely Decreased Stage V GFR <15 Very Little GFR Left ESRD GFR <15 on [employer] 18 Units are mL/min/1.73 m2 Chronic Kidney Disease Staging per NKF: Stage I & II GFR >=60 Normal to Mildly Decreased Stage III GFR 30-59 Moderately Decreased Stage IV GFR 15-29 Severely Decreased Stage V GFR <15 Very Little GFR Left ESRD GFR <15 on [employer] 19 Units are mL/min/1.73 m2 Chronic Kidney Disease Staging per NKF: Stage I & II GFR >=60 Normal to Mildly Decreased Stage III GFR 30-59 Moderately Decreased Stage IV GFR 15-29 Severely Decreased Stage V GFR <15 Very Little GFR Left ESRD GFR <15 on [employer] Procedures Date Code Description Status 06/24/2020 [id number] EKG/Interpretation & Report Comp leted 10/09/2019 [id number] Mammogram Completed 09/23/2019 [id number] Mammogram Completed 09/16/2019 [id number] Mammogram Completed 10/02/2017 [id number] Diabetic Retinal Eye Exam [employer] Description No Information Available Encounters Type Date Location Provider Dx Diagnosis Office Visit 06[facility]24[facility]2020 10[facility] Z01.810 Encounter for preprocedural cardiovascular examination C50.919 Malignant neoplasm of unsp s ite of unspecified female breast I47.1 Supraventricular tachycardia K57.92 Dvtrcli of intest, part unsp , w/o perf or abscess w/o bleed Office Visit 03/25/2020 10[facility] C50.919 Malignant neoplasm of unsp s ite of unspecified female breast K56.609 Unsp intestnl obst, unsp as to partial versus complete obst R53.83 Other fatigue R63.0 Anorexia R73.03 Prediabetes K44.9 Diaphragmatic hernia without obstruction or gangrene N20.0 Calculus of kidney E66.09 Other obesity due to excess calories Z68.30 Body mass index (BMI) 30.0-3 0.9, adult L23.9 Allergic contact dermatitis, unspecified cause I47.1 Supraventricular tachycardia Z13.89 Encounter for screening for other disorder Assessments Date Code Description Provider 06/24/2020 Z01.810 Encounter for preprocedural card iovascular examination Arlyn Adams M.D. 06/24/2020 C50.919 Malignant neoplasm o f unspecified site of unspecified female breast Arlyn Adams M.D. 06/24/2020 I47.1 Supraventricular tachycardia Gagan Adams M.D. 06/24/2020 K57.92 Diverticulitis of in testine, part unspecified, without perforation or abscess without bleeding Arlyn Adams M.D. 03/25/2020 C50.919 Malignant neoplasm o f unspecified site of unspecified female breast Arlyn Adams M.D. 03/25/2020 K56.609 Unspecified intestin al obstruction, unspecified as to partial versus complete obstruction Arlyn Adams M.D. 03/25/2020 R53.83 Other fatigue Arlyn jameson M.D. 03/25/2020 R63.0 Anorexia Arlyn jameson M.D. 03/25/2020 R73.03 Prediabetes Arlyn jameson M.D. 03/25/2020 K44.9 Diaphragmatic hernia without obs truction or gangrene Arlyn Adams M.D. 03/25/2020 N20.0 Calculus of kidney Arlyn smith M.D. 03/25/2020 E66.09 Other obesity due to excess rose alvaro Arlyn Adams M.D. 03/25/2020 Z68.30 Body mass index (BMI) 30.0-30.9, adult Arlyn Adams M.D. 03/25/2020 L23.9 Allergic contact dermatitis, uns pecified cause Arlyn Adams M.D. 03/25/2020 I47.1 Supraventricular tachycardia Gagan Adams M.D. 03/25/2020 Z13.89 Encounter for screening for othe r disorder Arlyn Adams M.D. Plan of Treatment Future Appointment(s):* 07/29/2020 10:00 am - Arlyn Adams M.D. at [facility] * 09/27/2020 9:00 am - Arlyn Adams M.D. at [facility] 03/25/2020 - Arlyn Adams M.D.* C50.919 Malignant neoplasm of unspecified site of unspecified female breast * K56.609 Unspecified intestinal obstruction, unspecified as to partial versus complete obstruction * R53.83 Other fatigue * R63.0 Anorexia * R73.03 Prediabetes * K44.9 Diaphragmatic hernia without obstruction or gangrene * N20.0 Calculus of kidney * E66.09 Other obesity due to excess calories * Z68.30 Body mass index (BMI) 30.0-30.9, adult * L23.9 Allergic contact dermatitis, unspecified cause * I47.1 Supraventricular tachycardia * Z13.89 Encounter for screening for other disorder Functional Status Description No Information Available Mental Status Description No Information Available Referrals Description No Information Available
--- OUTSIDE RECORDS SUMMARY | 2020-07-30 07:41 | CCD ---
Author Author [facility] Organization [facility] Address Unknown Phone Unavailable Care Team Providers Care Executive Producer [employer] Name Role Phone Jory Ramachandran Unavailable PROBLEMS Type Condition ICD9-CM Code [id number] Code Onset Dates Condition S tatus SNOMED Code Notes Problem Vertigo 780.4 Active 888036531 Problem Symptomatic menopausal or female climacteric states N95.1 Active 31300953 Problem Abnormal mammogram R92.8 Active 527010107 Problem Infiltrating ductal carcinoma of right breast C50. 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 8945862701504029 Problem Malignant neoplasm of unspecified site of left female breast C50.912 Active 267978173 ALLERGIES Allergen (clinical drug ingredient) Drug/Non Drug Allergy do cumented on EMR Reaction Allergy Type Onset Date Status clindamycin Clindamycin HCl(NDC Code:[address]-42) Unknown Drug A llergy Active cephalexin Cephalexin(NDC Code:[address]-24) Rash Drug Allergy Active Iodine(NDC Code:20075-44441) Unknown Drug Allergy Active x-ray dye Anaphylaxis Non Drug Allergy Active ENCOUNTERS from 1969 to 2020-07-16 Encounter Location Date Provider Diagnosis [facility] [address] [place] [address] Jun, Jory Dombrowska Mass of right chest wall R22.2 ; Ductal carcinoma in situ (DCIS) of left breast D05.12 ; Infiltrating ductal carcinoma of right breast C50.911 ; Estrogen receptor positive status [ER+] Z17.0 ; Genetic screening Z13.79 and Abdominal pain in female R10.9 IMMUNIZATIONS No Information SOCIAL HISTORY Tobacco Use: Social History Observation Description Date Details (start date - stop date) Never Smoker Sex Assigned At : Social History Observation Description Sex Assigned At Unknown Education: Question Answer Notes Level of Education: College Language: Question Answer Notes Languages spoken: Latvian Religious: Question Answer Notes Religious 08 [employer] Alcohol Screening: Question Answer Notes Did you have a drink containing alcohol in the past year? Ye s Points 1 Interpretation Negative How often did you have six or more drinks on one occas ion in the past year? Never (0 points) How many drinks did you have on a typica l day when you were drinking in the past year? 1 or 2 (0 points) How often did you have a drink containing alcohol in t he past year? Monthly or less (1 point) BMI Care Goal Follow-Up Question Answer Notes Above Normal BMI Follow-Up Lifestyle education regarding t Tobacco Use: Question Answer Notes Are you a: never smoker never smoker REASON FOR REFERRAL No Information VITAL SIGNS Weight 170.2 lbs Jun, Weight-kg 77.2 kg Jun, Height 61.75 in Jun, BMI 31.38 kg/m2 Jun, Heart Rate 68 /min Jun, Respiratory Rate 18 /min Jun, Temperature 98.3 degrees Fahrenheit Jun, Oximetry 100 Jun, Blood pressure systolic 122 mm Hg Jun, Blood pressure diastolic 68 mm Hg Jun, MEDICATIONS Medication SIG (Take, Route, Frequency, Duration) Notes Start Da te End Date Status Flagyl 500 MG 1 tablet Orally Three times a day Active Cephalexin 500 MG 1 capsule Orally every 12 hrs for 10 day(s) Not-Taking Multivitamins 1 Orally occ./5 x a wk. or so Active Sulfamethoxazole-Trimethoprim 800-160 MG 1 tablet Oral ly Twice a day for 14 day(s) Dec, Not-Taking Vitamin D-3 5000 1 capsule Orally Once a day Active Amoxicillin 500 MG 1 capsule Orally every 12 hrs for 10 day(s) Dec, Not-Taking Lidocaine-Prilocaine 2.5-2.5 % Apply generously to eac h nipple & surrounding breast 2 hours before coming to hospital. Cover with plastic wrap. Externally once for 1 day Not-Taking PROCEDURES No Information RESULTS No Results REASON FOR VISIT f/u 6 month MEDICAL (GENERAL) HISTORY Type Description Date Medical History SVT-echo and stress test done-2008 carda ic ablation x 2 Medical History Hiatal hernia Medical History sleep apnea Medical History allergies Medical History abnormal mammogram-2005 -cat. 4 Medical History kidney stones Medical History elevated cholesterol Medical History Left breast DCIS Medical History Colon abscess, Surgical History breast biopsy left/benign--ductal hyperp lasia 2005 Surgical History wisdom teeth Surgical History Left breast biopsy, 2 sites, dcis grade 3 10/09/19 Surgical History bilateral mastectomy Surgical History right breast collar stitcher removed Hospitalization History surgery related Hospitalization History Heart catheterization and ablasion 2 / December Hospitalization History Hospitalized [facility] in [place] x4 days May 2020 Goals Section No Information Health Concerns No Information MEDICAL EQUIPMENT No Information MENTAL STATUS No Information FUNCTIONAL STATUS No Information ASSESSMENTS Encounter Date Diagnosis Assessment Notes Treatment Notes Treatm ent Clinical Notes Jun, Mass of right chest wall (ICD-10 - R22.2) Patient reports that she feels possibly palpable mass in the right upper chest wall which may be related to her pectoralis muscle. On clinical exam I did not feel anything suspicious. On my limited ultrasound of this region I did not see any suspicious changes either. We will get formal ultrasound of the right upper chest wall to assure that there is no cancer recurrence in this site. Jun, Ductal carcinoma in situ (DCIS) of left breast ( ICD-10 - D05.12) RIGHT BREATS CANCER IDC GRADE 2-3 ER 95% CO 1-2% HER2 NEGATIVE cT1c (1.1cm on US) cN0 cM0 STAGE 1 pT1c (1.3 cm) pN0(0/2) cM0 STAGE 1 LEFT BREAST CANCER DCIS GRADE 2-3 ER 100% CO 5% cTi.s.(extending 5 cm ?) cN0 cM0 STAGE 0 pTi.s. pN0 (0/2) cM0 STAGE 0 s/p b/l SSM w. 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 On clinical exam I did not feel anything suspicious. On my limited ultrasound of this region I did not see any suspicious changes either. We will get formal ultrasound of the right upper chest wall to assure that there is no cancer recurrence in this site. No palpable abnormalities are noted in the left chest wall/mastectomy site. Patient is following with plastic surgeon at [place] and is planning to have reconstructive surgery in July. She will follow-up with me in December 2020 for post cancer one year postop check. All questions were answered. Patient agrees with the plan. Jun, Infiltrating ductal carcinoma of right breast (I CD-10 - C50.911) see above Jun, Estrogen receptor positive status [ER+] (ICD-10 - Z17.0) On anastrozole now. Followed by [facility] Jun, Genetic screening (ICD-10 - Z13.79) negative for Clinically significant mutations. 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 She was treated conservatively by general surgery team and discharge home when her symptoms improved. Patient developed recurrent symptoms in May which included nausea, vomiting, and vaginal discharge. CAT scan of the abdomen and pelvis was done in [place] and showed findings concerning for diverticulitis with possible abscess and possible fistulization. Patient has generous surgery follow-up appointment scheduled for July 05. Is currently on Flagyl. This is managed by Dr. Zuniga from medical oncology. She is also going to see Alayna Foote to evaluate issues with her left ovary and vaginal discharge PLAN OF TREATMENT Treatment Notes Assessment Notes Clinical Notes Mass of right chest wall Patient reports that she fee ls possibly palpable mass in the right upper chest wall which may be related to her pectoralis muscle. On clinical exam I did not feel anything suspicious. On my limited ultrasound of this region I did not see any suspicious changes either.We will get formal ultrasound of the right upper chest wall to assure that there is no cancer recurrence in this site. Ductal carcinoma in situ (DCIS) of left breast RIGHT B [place] CANCERIDC GRADE 2- 3ER 95% CO 1-2% HER2 [id number] (1.1cm on US) cN0 cM0 STAGE 1pT1c (1.3 cm) pN0(0/2) cM0 STAGE 1LEFT BREAST CANCERDCIS GRADE 2-3ER 100% CO 5%cTi.s.(extending 5 cm ?) cN0 cM0 STAGE 0pTi.s. pN0 (0/2) cM0 STAGE 0s/p b/l SSM w. TE placement and b/l SLNBx 11/24/2019s/p b/l seroma drainage 12/23/19/p R TE removal 12/29/19 to infectionMARGINS: BOTH MASTECTOMY MARINS NEGATIVENO LVIGENETICS: negative for Clinically significant mutations., + VUS in gene [id number] DX for R CA : 19, chemo completed 04/28/20On AnastrozolePatient reports that she feels possibly palpable mass in the right upper chest wall which may be related to her pectoralis muscle. On clinical exam I did not feel anything suspicious. On my limited ultrasound of this region I did not see any suspicious changes either. We will get formal ultrasound of the right upper chest wall to assure that there is no cancer recurrence in this site.No palpable abnormalities are noted in the left chest wall/mastectomy site.Patient is following with plastic surgeon at [place] and is planning to have reconstructive surgery in July.She will follow-up with me in December 2020 for post cancer one year postop check.All questions were answered. Patient agrees with the plan. Infiltrating ductal carcinoma of right breast see above Estrogen receptor positive status [ER+] On anastrozole now. Followed by [facility] Genetic screening negative for Clinically sign ificant mutations.She has VUS in gene CDH1 Abdominal pain in female Patient continues to have sy mptoms of subacute diverticulitis which started in March and was complicated by acute microperforation. She was treated conservatively by general surgery team and discharge home when her symptoms improved.Patient developed recurrent symptoms in May which included nausea, vomiting, and vaginal discharge. CAT scan of the abdomen and pelvis was done in [place] and showed findings concerning for diverticulitis with possible abscess and possible fistulization.Patient has generous surgery follow-up appointment scheduled for July 05. Is currently on Flagyl. This is managed by Dr. Zuniga from medical oncology.She is also going to see Alayna Foote to evaluate issues with her left ovary and vaginal discharge Treatment Notes Test Name Order Date Breast U/S Unilateral Limited 2020-07-16 Next Appt Details Provider Name:Alayna Foote, 2020-09-16 10:00:00 AM, [address] [place] [address], [id number], Provider Name:Jory Ramachandran, 28-12-03 09:00:00 AM, [address] [place] [address], [id number], Insurance Providers Payer Name Payer Address Payer Phone Insured Name Patient Relati onship to Insured Coverage Start Date Coverage End Date BCBS ANGELICA LEDESMA PPO [id number] [facility] [place] [id number] FRANKIE TADEO self
--- OUTSIDE RECORDS SUMMARY | 2020-07-30 07:41 | CCD | Continuity of Care Document ---
Author Author Zahra Adams M.D Organization Unknown Address [address] [facility] [address] [place] [address] Phone [phone] Care Team Providers Care Reel Slitter Name Role Phone Geni Conti JEWELRY SALES REPRESENTATIVE AUTM [phone] [facility] Hematology/Oncology AUTM [phone] Problems Active Problems Provider Date History of [...] SIG Qnty Indications Ordering Provide r Date Probiotic Capsules 1 by mouth every day Arlyn Adams M.D. 03/22/2020 Vitamin D3 125mcg (5000 Ut) Capsul es 1 by mouth every day Cris Hickey FNP 03/19/2020 Excedrin Migraine [phone] Tab lets 2 q 6hrs prn po migraine Arlyn Adams M.D. 05/2020 Acetaminophen 500mg Tablets 2 by mouth every 8 hours as needed for pain Arlyn harmon M.D. 03/19/2020 Benadryl Allergy 25mg Tablets 1 po q6h prn rash Arlyn Adams M.D. 11/28/19 20 Multivitamin Adult Tablets 1 by mouth every day Deirdre Moeller, JEWELRY SALES REPRESENTATIVE 09/18/2017 Gabapentin 300mg Capsules 1 PO QHS prn Nerve Pain Onc Arlyn Adams M.D. History Medications Metamucil 28% Packet 1 q layo po Arlyn Adams M.D. 06/01/2020 - 07/29/2020 Cefuroxime Axetil 500mg Tablets 1 by mouth [...] Available Vital Signs Date Vital Result Comment 07/29/2020 9:58am BP Systolic 110 mmHg RT Arm BP Diastolic 72 mmHg RT Arm Heart Rate 76 /min Height 62.0 inches 5'2" Weight 173.50 lb O2 Saturation Level with Exercise 93 % RM Air BMI (Body Mass Index) 31.7 kg/m2 06/24/2020 10:09am BP Systolic 116 mmHg RT Arm BP Diastolic 74 mmHg RT Arm Heart Rate 80 /min Height 62.0 inches 5'2" Weight 170.00 lb O2 % BldC Oximetry 97 % RM Air O2 Saturation Level with Exercise 97 % RM Air BMI (Body Mass Index) 31.1 kg/m2 Results Test Acquired Date Facility Test Result H/L Range Note Ua Routine 07/12/2020 [facility] nter [address] [place] [address] [phone] Appearance, Urine TURBID High Clear Color, Urine YELLOW Normal Yellow PH,Urine 5.0 units Normal 5.0-9.0 Specific [place] Urine Auto 1.023 Normal 1.002-1.035 Protein, Urine [...] SMALL High Negative Laboratory test finding 07/12/2020 [facility] [address] [place] [address] [phone] HCG, Serum Quantitative < 1.0 MIU/ML Normal 1 Complete Blood Count 07/12/2020 [facility] Lamination Technician: [place] [address] [phone] WBC 6.3 x10*3/UL 4.1 - 10.9 RBC [...] 2.0 - 7.8 Comprehensive Chem Profile 07/12/2020 [facility] Lamination Technician: Dr William Quiroga [place], [place] [id number] [phone] Glucose 109 mg/dL High 74 - 99 [...] mL/min >60 3 CBC With Differential 05/24/[address] [id number] [phone] White Blood Count 6.9 10 Normal 4.0-10.0 [...] 36.0-66.0 Lymph % 26.9 % Normal 24.0-44.0 [place] % 10.1 % High 0.0-5.0 Eos % 0.3 % Normal 0.0-3.0 Baso % 0.9 % Normal 0.0-1.0 Immature Granulocyte % 1.7 % Normal 0-3.0 Nucleated Red Blood Cell % 0.0 % Normal 0-0 Neutrophils # 4.2 10 Normal 1.5-8.5 Lymph # 1.9 10 Normal 1.5-5.0 [place] # 0.7 10 Normal 0.0-0.8 Eos # 0.0 10 Normal 0.0-0.5 Baso # 0.1 10 Normal 0.0-0.2 Comprehensive Metabolic Profil 05/24/[address] [address] [phone] Glucose, Fasting 94 mg/dL Normal 70-100 Blood [...] 1.0 Low 1.2-2.2 CBC With Differential 05/03/[address] [address] [phone] White Blood Count 5.7 10 Normal 4.0-10.0 [...] 36.0-66.0 Lymph % 31.5 % Normal 24.0-44.0 [place] % 8.9 % High 0.0-5.0 Eos % 2.1 % Normal 0.0-3.0 Baso % 1.6 % High 0.0-1.0 Immature Granulocyte % 1.1 % Normal 0-3.0 Nucleated Red Blood Cell % 0.0 % Normal 0-0 Neutrophils # 3.1 10 Normal 1.5-8.5 Lymph # 1.8 10 Normal 1.5-5.0 [place] # 0.5 10 Normal 0.0-0.8 Eos # 0.1 10 Normal 0.0-0.5 Baso # 0.1 10 Normal 0.0-0.2 Comprehensive Metabolic Profil 05/03/[address] [id number] [phone] Glucose, Fasting 120 mg/dL High 70-100 Blood [...] 0.8 Low 1.2-2.2 Coronavirus 2019 Nasopharygeal 04/22/[address] [id number] [phone] Coronavirus 2019 Nasopharygeal This nucleic aci <SEE N OTE> 6 CBC With Differential 04/05/[address] 7794584 [phone] White Blood Count 5.4 10 Normal 4.0-10.0 [...] 36.0-66.0 Lymph % 12.1 % Low 24.0-44.0 [place] % 2.2 % Normal 0.0-5.0 Eos % 0.0 % Normal 0.0-3.0 Baso % 0.4 % Normal 0.0-1.0 Immature Granulocyte % 0.9 % Normal 0-3.0 Nucleated Red Blood Cell % 0.0 % Normal 0-0 Neutrophils # 4.5 10 Normal 1.5-8.5 Lymph # 0.7 10 Low 1.5-5.0 [place] # 0.1 10 Normal 0.0-0.8 Eos # 0.0 10 Normal 0.0-0.5 Baso # 0.0 10 Normal 0.0-0.2 Comprehensive Metabolic Profil 04/05/2020 [facility] [address] [place], [place] [address] [phone] Glucose, Fasting 137 mg/dL High 70-100 Blood [...] 0.8 Low 1.2-2.2 CBC With Differential 03/29/[address] [address] [phone] White Blood Count 8.4 10 Normal 4.0-10.0 [...] 36.0-66.0 Lymph % 20.9 % Low 24.0-44.0 [place] % 10.2 % High 0.0-5.0 Eos % 0.8 % Normal 0.0-3.0 Baso % 1.1 % High 0.0-1.0 Immature Granulocyte % 2.5 % Normal 0-3.0 Nucleated Red Blood Cell % 0.0 % Normal 0-0 Neutrophils # 5.4 10 Normal 1.5-8.5 Lymph # 1.8 10 Normal 1.5-5.0 [place] # 0.9 10 High 0.0-0.8 Eos # 0.1 10 Normal 0.0-0.5 Baso # 0.1 10 Normal 0.0-0.2 Comprehensive Metabolic Profil 03/29/[address] [address] [phone] Glucose, Fasting 104 mg/dL High 70-100 Blood [...] 0.7 Low 1.2-2.2 Basic Metabolic Panel 03/25/2020 [facility] Lamination Technician: Dr [place] [address] [phone] Glucose 100 mg/dL High 74 - 99 [...] mL/min >60 10 Laboratory test finding 03/25/2020 [facility] Lamination Technician: Dr [place] [address] [phone] Magnesium 2.2 mg/dL 1.8 - 2.4 Complete Blood Count 03/25/2020 [facility] Lamination Technician: Dr [place] [address] [phone] WBC 12.6 x10*3/UL High 4.1 - 10.9 [...] 2.0 - 7.8 Laboratory test finding 03/11/[address] [address] [phone] Lipase 57 U/L Low 73-393 Basic Metabolic Profile 03/11/[address] [address] [phone] Glucose, Fasting 113 mg/dL High 70-100 Blood [...] 8.9 mg/dL Normal 8.5-10.1 Liver Profile 03/11/2020 [facility] nter [address] [place] [address] [phone] Ast/Sgot 9 U/L Normal 7-37 Alt/SGPT 23 U/L Normal 12-78 Alkaline Phosphatase 68 U/L Normal 45-117 Bilirubin,Total 0.6 mg/dL Normal 0.2-1.0 Bilirubin,Direct 0.1 mg/dL Normal 0.0-0.2 Total Protein 6.8 GM/DL Normal 6.4-8.2 Albumin 3.1 GM/DL Low 3.2-5.2 Albumin/Globulin Ratio 0.8 Low 1.2-2.2 Cardiac Marker Panel 03/11/2020 [facility] enter [address] [place] [address] [phone] CPK Creatine Phosphokinase 34 U/L Normal 26-19 2 CK-MB Value Mass < 1.0 NG/ML Normal <3.6 MB/CK Relative Index 2.94 Normal < Or =4 13 Troponin I < 0.02 NG/ML Normal < 0.10 14 Laboratory test finding 03/11/2020 [facility] [address] [place] [phone] Lactic Acid Sepsis Protocol 1.4 mmol/L Normal 0.4- 2.0 15 Laboratory test finding 03/11/2020 [place] [address] [phone] Platelet Estimate NORMAL Normal Normal Differential 03/11/2020 [facility] nter [address] [place] [address] [phone] Neutrophils 96 % High 28-66 Lymphocytes 4 % Low 16-44 Anisocytosis 1+ Normal CBC With Differential 03/11/[address] [address] [phone] White Blood Count 12.8 10 High 4.0-10.0 [...] 0.0 % Normal 0-0 Prothrombin Time/Inr 03/11/2020 [facility] enter [address] [place] [address] [phone] Prothrombin Time 16.8 seconds High 11.8-14.0 Inr 1.33 Normal 16 CBC With Differential 03/08/[address] [id number] [phone] White Blood Count 19.9 10 High 4.0-10.0 [...] 36.0-66.0 Lymph % 7.3 % Low 24.0-44.0 [place] % 4.3 % Normal 0.0-5.0 Eos % 0.0 % Normal 0.0-3.0 Baso % 0.2 % Normal 0.0-1.0 Immature Granulocyte % 1.9 % Normal 0-3.0 Nucleated Red Blood Cell % 0.0 % Normal 0-0 Neutrophils # 17.2 10 High 1.5-8.5 Lymph # 1.5 10 Normal 1.5-5.0 [place] # 0.9 10 High 0.0-0.8 Eos # 0.0 10 Normal 0.0-0.5 Baso # 0.0 10 Normal 0.0-0.2 Comprehensive Metabolic Profil 03/08/[address] 0179081 [phone] Glucose, Fasting 252 mg/dL High 70-100 Blood [...] 0.9 Low 1.2-2.2 CBC With Differential 02/16/[address] [address] [phone] White Blood Count 16.7 10 High 4.0-10.0 [...] 36.0-66.0 Lymph % 7.3 % Low 24.0-44.0 [place] % 3.5 % Normal 0.0-5.0 Eos % 0.0 % Normal 0.0-3.0 Baso % 0.1 % Normal 0.0-1.0 Immature Granulocyte % 1.1 % Normal 0-3.0 Nucleated Red Blood Cell % 0.0 % Normal 0-0 Neutrophils # 14.7 10 High 1.5-8.5 Lymph # 1.2 10 Low 1.5-5.0 [place] # 0.6 10 Normal 0.0-0.8 Eos # 0.0 10 Normal 0.0-0.5 Baso # 0.0 10 Normal 0.0-0.2 Comprehensive Metabolic Profil 02/16/[address] [address] [phone] Glucose, Fasting 197 mg/dL High 70-100 Blood [...] 1.1 Low 1.2-2.2 CBC With Differential 02/11/[address] [id number] [phone] White Blood Count 5.9 10 Normal 4.0-10.0 [...] 36.0-66.0 Lymph % 38.6 % Normal 24.0-44.0 [place] % 7.5 % High 0.0-5.0 Eos % 3.6 % High 0.0-3.0 Baso % 0.9 % Normal 0.0-1.0 Immature Granulocyte % 1.0 % Normal 0-3.0 Nucleated Red Blood Cell % 0.0 % Normal 0-0 Neutrophils # 2.8 10 Normal 1.5-8.5 Lymph # 2.3 10 Normal 1.5-5.0 [place] # 0.4 10 Normal 0.0-0.8 Eos # 0.2 10 Normal 0.0-0.5 Baso # 0.1 10 Normal 0.0-0.2 Comprehensive Metabolic Profil 02/11/[address] [address] [phone] Glucose, Fasting 106 mg/dL High 70-100 Blood [...] or monitoring the treatment of cancer patients. [employer] methodology. 2 100-125 mg/dL PRE-DIABET ES/FASTING >126 mg/dL DIABETES/FASTING 3 CHRONIC KIDNEY DISEASE STAGI NG PER NKF STAGE I & II GFR >= 60 NORMAL TO MILDLY DECREASED STAGE III GFR 30-59 MODERATELY DECREASED STAGE IV GFR 15-29 SEVERELY DECREASED STAGE V GFR <15 VERY LITTLE GFR LEFT ESRD GFR <15 ON DEPARTMENT TRAFFIC [employer]REIGHT [employer]OUTER 4 Units are mL/min/1.73 m2 Chronic Kidney Disease Staging per NKF: Stage I & II GFR >=60 Normal to Mildly Decreased Stage III GFR 30-59 Moderately Decreased Stage IV GFR 15-29 Severely Decreased Stage V GFR <15 Very Little GFR Left ESRD GFR <15 on DEPARTMENT TRAFFIC [place] [employer] 5 Units are mL/min/1.73 m2 Chronic Kidney Disease Staging per NKF: Stage I & II GFR >=60 Normal to Mildly Decreased Stage III GFR 30-59 Moderately Decreased Stage IV GFR 15-29 Severely Decreased Stage V GFR <15 Very Little GFR Left ESRD GFR <15 on DEPARTMENT TRAFFIC [employer] ROUTER 6 This nucleic acid amplificat ion test was developed and its performance characteristics determined by [employer]. Nucleic acid amplification tests include PCR and [...] detected) result in this assay. Performed at: [facility] [employer] [id number] Lamination Technician: Julia Garcia MD, Phone: [phone] Not Detected 7 Units are mL/min/1.73 m2 Chronic Kidney Disease Staging per NKF: Stage I & II GFR >=60 Normal to Mildly Decreased Stage III GFR 30-59 Moderately Decreased Stage IV GFR 15-29 Severely Decreased Stage V GFR <15 Very Little GFR Left ESRD GFR <15 on DEPARTMENT TRAFFIC [place]TER 8 Units are mL/min/1.73 m2 Chronic Kidney Disease Staging per NKF: Stage I & II GFR >=60 Normal to Mildly Decreased Stage III GFR 30-59 Moderately Decreased Stage IV GFR 15-29 Severely Decreased Stage V GFR <15 Very Little GFR Left ESRD GFR <15 on DEPARTMENT TRAFFIC [employer]OUTER 9 100-125 mg/dL PRE-DIABET ES/FASTING >126 mg/dL DIABETES/FASTING 10 CHRONIC KIDNEY DISEASE STAGI NG PER NKF STAGE I & II GFR >= 60 NORMAL TO MILDLY DECREASED STAGE III GFR 30-59 MODERATELY DECREASED STAGE IV GFR 15-29 SEVERELY DECREASED STAGE V GFR <15 VERY LITTLE GFR LEFT ESRD GFR <15 ON DEPARTMENT TRAFFIC [employer]OUTER 11 NOTE: RESULT VERIFIED. 12 Units are mL/min/1.73 m2 Chronic Kidney Disease Staging per NKF: Stage I & II GFR >=60 Normal to Mildly Decreased Stage III GFR 30-59 Moderately Decreased Stage IV GFR 15-29 Severely Decreased Stage V GFR <15 Very Little GFR Left ESRD GFR <15 on DEPARTMENT TRAFFIC [employer] 13 DIAGNOSIS CRITERIA MMB ng/ml Relative Index (RI) NON-AMI < or = 5 N/A LEE ZONE > 5 < or = 4 AMI > 5 > 4 14 Troponin I Reference Interva l for [employer] LOCI: 99th Percentile= 0.00-0.045 ng/ml Risk Stratification: [...] Little GFR Left ESRD GFR <15 on DEPARTMENT TRAFFIC [employer] 18 Units are mL/min/1.73 m2 Chronic Kidney Disease Staging per NKF: Stage I & II GFR >=60 Normal to Mildly Decreased Stage III GFR 30-59 Moderately Decreased Stage IV GFR 15-29 Severely Decreased Stage V GFR <15 Very Little GFR Left ESRD GFR <15 on DEPARTMENT TRAFFIC [employer]OU[employer] 19 Units are mL/min/1.73 m2 Chronic Kidney Disease Staging per NKF: Stage I & II GFR >=60 Normal to Mildly Decreased Stage III GFR 30-59 Moderately Decreased Stage IV GFR 15-29 Severely Decreased Stage V GFR <15 Very Little GFR Left ESRD GFR <15 on DEPARTMENT TRAFFIC [employer] Procedures Date Code Description Status 06/24/2020 01087 EKG/Interpretation & Report Comp leted 10/09/2019 [id number] Mammogram Completed 09/23/2019 [id number] Mammogram Completed 09/16/2019 [id number] Mammogram Completed 10/02/2017 [id number] Diabetic Retinal Eye Exam Comple Accelergy Description No Information Available Encounters Type Date Location Provider Dx Diagnosis Office Visit 06/24/2020 10:00a [facility] M.[facility]. Z01.810 Encounter for preprocedural cardiovascular examination C50.919 Malignant neoplasm of unsp s ite of unspecified female breast I47.1 Supraventricular tachycardia K57.92 Dvtrcli of intest, part unsp , w/o perf or abscess w/o bleed Office Visit 03/25/2020 10:00a [facility] M[facility] C50.919 Malignant neoplasm of [...] other disorder Assessments Date Code Description Provider 07/12/2020 C50.919 Malignant neoplasm o f unspecified site of unspecified female breast Arlyn Admas M.D. 07/12/2020 C50.919 Malignant neoplasm o f unspecified site of unspecified female breast Lab Schedule 07/12/2020 I47.1 Supraventricular tachycardia Gagan Adams M.D. 07/12/2020 I47.1 Supraventricular tachycardia Lab Schedule 06/24/2020 Z01.810 Encounter for preprocedural card iovascular [...] Adams M.D. Plan of Treatment Future Appointment(s):* 09/27/2020 9:00 am - Arlyn Adams M.D. at [facility] 03/25/2020 - Arlyn Adams M.D.* C50.919 Malignant [...]
--- OUTSIDE RECORDS SUMMARY | 2020-07-30 07:41 | CCD | Continuity of Care Document ---
Author Author Lab Schedule, Game Craft Organization Unknown Address [address] [address] Phone Unavailable Care Team Providers Care Services Mgr Name Role Phone Geni Conti [employer] PAN[employer] FABRICATOR AUTM [phone] [facility] Hematology/Oncology AUTM [phone] Problems Active Problems Provider Date History of [...] every day Cris Hickey,ALEX 03/19/2020 Excedrin Migraine [phone] Tab lets 2 q 6hrs prn po migraine Arlyn Adams M.D. 05/2020 Acetaminophen 500mg Tablets 2 by mouth every 8 hours as needed for pain Arlyn harmon M.D. 03/19/2020 Benadryl Allergy 25mg Tablets 1 po q6h prn rash Arlyn Adams M.D. 11/28/19 20 Multivitamin Adult Tablets 1 by mouth every day Phyl Moeller, [employer] PANEL[employer] FABRICATOR 09/18/2017 Gabapentin 300mg Capsules 1 PO QHS [...] Result H/L Range Note Ua Routine 07/12/2020 [facility] nter [address], [place] [id number] [phone] Appearance, Urine TURBID High Clear Color, Urine YELLOW Normal Yellow PH,Urine 5.0 units Normal 5.0-9.0 Specific [place] Urine Auto 1.023 Normal 1.002-1.035 Protein, Urine [...] SMALL High Negative Laboratory test finding 07/12/2020 [facility] [address] [place] [address] [phone] HCG, Serum Quantitative < 1.0 MIU/ML Normal 1 Complete Blood Count 07/12/2020 [facility] Teacher janet pc Stick Welder: [place] [address] [phone] WBC 6.3 x10*3/UL 4.1 - 10.9 RBC [...] 2.0 - 7.8 Comprehensive Chem Profile 07/12/2020 [facility] espinosa Stick Welder: [place] [address] [phone] Glucose 109 mg/dL High 74 - 99 [...] mL/min >60 3 CBC With Differential 05/24/2020 [place] [id number] [phone] White Blood Count 6.9 10 Normal 4.0-10.0 [...] 36.0-66.0 Lymph % 26.9 % Normal 24.0-44.0 Ford % 10.1 % High 0.0-5.0 Eos % 0.3 % Normal 0.0-3.0 Baso % 0.9 % Normal 0.0-1.0 Immature Granulocyte % 1.7 % Normal 0-3.0 Nucleated Red Blood Cell % 0.0 % Normal 0-0 Neutrophils # 4.2 10 Normal 1.5-8.5 Lymph # 1.9 10 Normal 1.5-5.0 Ford # 0.7 10 Normal 0.0-0.8 Eos # 0.0 10 Normal 0.0-0.5 Baso # 0.1 10 Normal 0.0-0.2 Comprehensive Metabolic Profil 05/24/[address] [id number] [phone] Glucose, Fasting 94 mg/dL Normal 70-100 Blood [...] 1.0 Low 1.2-2.2 CBC With Differential 05/03/[address] [address] [phone] White Blood Count 5.7 10 Normal 4.0-10.0 [...] 36.0-66.0 Lymph % 31.5 % Normal 24.0-44.0 Ford % 8.9 % High 0.0-5.0 Eos % 2.1 % Normal 0.0-3.0 Baso % 1.6 % High 0.0-1.0 Immature Granulocyte % 1.1 % Normal 0-3.0 Nucleated Red Blood Cell % 0.0 % Normal 0-0 Neutrophils # 3.1 10 Normal 1.5-8.5 Lymph # 1.8 10 Normal 1.5-5.0 Ford # 0.5 10 Normal 0.0-0.8 Eos # 0.1 10 Normal 0.0-0.5 Baso # 0.1 10 Normal 0.0-0.2 Comprehensive Metabolic Profil 05/03/[address] [address] [phone] Glucose, Fasting 120 mg/dL High 70-100 Blood [...] 0.8 Low 1.2-2.2 Coronavirus 2019 Nasopharygeal 04/22/[address] [address] [phone] Coronavirus 2019 Nasopharygeal This nucleic aci <SEE N OTE> 6 CBC With Differential 04/05/[address] [address] [phone] White Blood Count 5.4 10 Normal 4.0-10.0 [...] 36.0-66.0 Lymph % 12.1 % Low 24.0-44.0 Ford % 2.2 % Normal 0.0-5.0 Eos % 0.0 % Normal 0.0-3.0 Baso % 0.4 % Normal 0.0-1.0 Immature Granulocyte % 0.9 % Normal 0-3.0 Nucleated Red Blood Cell % 0.0 % Normal 0-0 Neutrophils # 4.5 10 Normal 1.5-8.5 Lymph # 0.7 10 Low 1.5-5.0 Ford # 0.1 10 Normal 0.0-0.8 Eos # 0.0 10 Normal 0.0-0.5 Baso # 0.0 10 Normal 0.0-0.2 Comprehensive Metabolic Profil 04/05/[address] [address] [phone] Glucose, Fasting 137 mg/dL High 70-100 Blood [...] 0.8 Low 1.2-2.2 CBC With Differential 03/29/[address] [address] [phone] White Blood Count 8.4 10 Normal 4.0-10.0 [...] 36.0-66.0 Lymph % 20.9 % Low 24.0-44.0 Ford % 10.2 % High 0.0-5.0 Eos % 0.8 % Normal 0.0-3.0 Baso % 1.1 % High 0.0-1.0 Immature Granulocyte % 2.5 % Normal 0-3.0 Nucleated Red Blood Cell % 0.0 % Normal 0-0 Neutrophils # 5.4 10 Normal 1.5-8.5 Lymph # 1.8 10 Normal 1.5-5.0 Ford # 0.9 10 High 0.0-0.8 Eos # 0.1 10 Normal 0.0-0.5 Baso # 0.1 10 Normal 0.0-0.2 Comprehensive Metabolic Profil 03/29/[address] [address] [phone] Glucose, Fasting 104 mg/dL High 70-100 Blood [...] 0.7 Low 1.2-2.2 Basic Metabolic Panel 03/25/2020 [facility] Stick Welder: [place] [address] [phone] Glucose 100 mg/dL High 74 - 99 [...] mL/min >60 10 Laboratory test finding 03/25/2020 [facility] isfidel, pc Stick Welder: [place] [address] [phone] Magnesium 2.2 mg/dL 1.8 - 2.4 Complete Blood Count 03/25/2020 [facility] Teacher ingrid gonzales Stick Welder: [place] [address] [phone] WBC 12.6 x10*3/UL High 4.1 - 10.9 [...] 2.0 - 7.8 Laboratory test finding 03/11/2020 [facility] [address] [place] [address] [phone] Lipase 57 U/L Low 73-393 Basic Metabolic Profile 03/11/2020 [place] [id number] [phone] Glucose, Fasting 113 mg/dL High 70-100 Blood [...] 8.9 mg/dL Normal 8.5-10.1 Liver Profile 03/11/2020 [facility] nter [address] [place] [id number] [phone] Ast/Sgot 9 U/L Normal 7-37 Alt/SGPT 23 U/L Normal 12-78 Alkaline Phosphatase 68 U/L Normal 45-117 Bilirubin,Total 0.6 mg/dL Normal 0.2-1.0 Bilirubin,Direct 0.1 mg/dL Normal 0.0-0.2 Total Protein 6.8 GM/DL Normal 6.4-8.2 Albumin 3.1 GM/DL Low 3.2-5.2 Albumin/Globulin Ratio 0.8 Low 1.2-2.2 Cardiac Marker Panel 03/11/2020 [facility] [address] [place] [address] [phone] CPK Creatine Phosphokinase 34 U/L Normal 26-19 2 CK-MB Value Mass < 1.0 NG/ML Normal <3.6 MB/CK Relative Index 2.94 Normal < Or =4 13 Troponin I < 0.02 NG/ML Normal < 0.10 14 Laboratory test finding 03/11/[address] [address] [phone] Lactic Acid Sepsis Protocol 1.4 mmol/L Normal 0.4- 2.0 15 Laboratory test finding 03/11/[address] [address] [phone] Platelet Estimate NORMAL Normal Normal Differential 03/11/2020 [facility] nter [address] [place] [address] [phone] Neutrophils 96 % High 28-66 Lymphocytes 4 % Low 16-44 Anisocytosis 1+ Normal CBC With Differential 03/11/[address] [address] [phone] White Blood Count 12.8 10 High 4.0-10.0 [...] 0.0 % Normal 0-0 Prothrombin Time/Inr 03/11/2020 [facility] enter [address] [place] [address] [phone] Prothrombin Time 16.8 seconds High 11.8-14.0 Inr 1.33 Normal 16 CBC With Differential 03/08/[address] [address] [phone] White Blood Count 19.9 10 High 4.0-10.0 [...] 36.0-66.0 Lymph % 7.3 % Low 24.0-44.0 Ford % 4.3 % Normal 0.0-5.0 Eos % 0.0 % Normal 0.0-3.0 Baso % 0.2 % Normal 0.0-1.0 Immature Granulocyte % 1.9 % Normal 0-3.0 Nucleated Red Blood Cell % 0.0 % Normal 0-0 Neutrophils # 17.2 10 High 1.5-8.5 Lymph # 1.5 10 Normal 1.5-5.0 Ford # 0.9 10 High 0.0-0.8 Eos # 0.0 10 Normal 0.0-0.5 Baso # 0.0 10 Normal 0.0-0.2 Comprehensive Metabolic Profil 03/08/2020 [place] [id number] [phone] Glucose, Fasting 252 mg/dL High 70-100 Blood [...] 0.9 Low 1.2-2.2 CBC With Differential 02/16/2020 [place] [address] [place], [place] [address] [phone] White Blood Count 16.7 10 High 4.0-10.0 [...] 36.0-66.0 Lymph % 7.3 % Low 24.0-44.0 Ford % 3.5 % Normal 0.0-5.0 Eos % 0.0 % Normal 0.0-3.0 Baso % 0.1 % Normal 0.0-1.0 Immature Granulocyte % 1.1 % Normal 0-3.0 Nucleated Red Blood Cell % 0.0 % Normal 0-0 Neutrophils # 14.7 10 High 1.5-8.5 Lymph # 1.2 10 Low 1.5-5.0 Ford # 0.6 10 Normal 0.0-0.8 Eos # 0.0 10 Normal 0.0-0.5 Baso # 0.0 10 Normal 0.0-0.2 Comprehensive Metabolic Profil 02/16/[address] [address] [phone] Glucose, Fasting 197 mg/dL High 70-100 Blood [...] 1.1 Low 1.2-2.2 CBC With Differential 02/11/[address] [address]603 [phone] White Blood Count 5.9 10 Normal 4.0-10.0 [...] 36.0-66.0 Lymph % 38.6 % Normal 24.0-44.0 Ford % 7.5 % High 0.0-5.0 Eos % 3.6 % High 0.0-3.0 Baso % 0.9 % Normal 0.0-1.0 Immature Granulocyte % 1.0 % Normal 0-3.0 Nucleated Red Blood Cell % 0.0 % Normal 0-0 Neutrophils # 2.8 10 Normal 1.5-8.5 Lymph # 2.3 10 Normal 1.5-5.0 Ford # 0.4 10 Normal 0.0-0.8 Eos # 0.2 10 Normal 0.0-0.5 Baso # 0.1 10 Normal 0.0-0.2 Comprehensive Metabolic Profil 02/11/2020 [place] 9399533 [phone] Glucose, Fasting 106 mg/dL High 70-100 Blood [...] monitoring the treatment of cancer patients. [employer] methodology. 2 100-125 mg/dL PRE-DIABET ES/FASTING >126 mg/dL DIABETES/FASTING 3 CHRONIC KIDNEY DISEASE STAGI NG PER NKF STAGE I & II GFR >= 60 NORMAL TO MILDLY DECREASED STAGE III GFR 30-59 MODERATELY DECREASED STAGE IV GFR 15-29 SEVERELY DECREASED STAGE V GFR <15 VERY LITTLE GFR LEFT ESRD GFR <15 ON STRUCTURAL DRAFTER 4 Units are mL/min/1.73 m2 Chronic Kidney Disease Staging per NKF: Stage I & II GFR >=60 Normal to Mildly Decreased Stage III GFR 30-59 Moderately Decreased Stage IV GFR 15-29 Severely Decreased Stage V GFR <15 Very Little GFR Left ESRD GFR <15 on STRUCTURAL DRAFTER 5 Units are mL/min/1.73 m2 Chronic Kidney Disease Staging per NKF: Stage I & II GFR >=60 Normal to Mildly Decreased Stage III GFR 30-59 Moderately Decreased Stage IV GFR 15-29 Severely Decreased Stage V GFR <15 Very Little GFR Left ESRD GFR <15 on STRUCTURAL DRAFTER 6 This nucleic acid amplificat ion test was developed and its performance characteristics determined by [employer]. Nucleic acid amplification tests include PCR and [...] detected) result in this assay. Performed at: [facility] [id number] Stick Welder: Julia Garcia MD, Phone: [phone] Not Detected 7 Units are mL/min/1.73 m2 Chronic Kidney Disease Staging per NKF: Stage I & II GFR >=60 Normal to Mildly Decreased Stage III GFR 30-59 Moderately Decreased Stage IV GFR 15-29 Severely Decreased Stage V GFR <15 Very Little GFR Left ESRD GFR <15 on STRUCTURAL DRAFTER 8 Units are mL/min/1.73 m2 Chronic Kidney Disease Staging per NKF: Stage I & II GFR >=60 Normal to Mildly Decreased Stage III GFR 30-59 Moderately Decreased Stage IV GFR 15-29 Severely Decreased Stage V GFR <15 Very Little GFR Left ESRD GFR <15 on STRUCTURAL DRAFTER 9 100-125 mg/dL PRE-DIABET ES/FASTING >126 mg/dL DIABETES/FASTING 10 CHRONIC KIDNEY DISEASE STAGI NG PER NKF STAGE I & II GFR >= 60 NORMAL TO MILDLY DECREASED STAGE III GFR 30-59 MODERATELY DECREASED STAGE IV GFR 15-29 SEVERELY DECREASED STAGE V GFR <15 VERY LITTLE GFR LEFT ESRD GFR <15 ON STRUCTURAL DRAFTER 11 NOTE: RESULT VERIFIED. 12 Units are mL/min/1.73 m2 Chronic Kidney Disease Staging per NKF: Stage I & II GFR >=60 Normal to Mildly Decreased Stage III GFR 30-59 Moderately Decreased Stage IV GFR 15-29 Severely Decreased Stage V GFR <15 Very Little GFR Left ESRD GFR <15 on STRUCTURAL DRAFTER 13 DIAGNOSIS CRITERIA MMB ng/ml Relative Index (RI) NON-AMI < or = 5 N/A LEE ZONE > 5 < or = 4 AMI > 5 > 4 14 Troponin I Reference Interva l for [employer] LOCI: 99th Percentile= 0.00-0.045 ng/ml Risk Stratification: [...] Little GFR Left ESRD GFR <15 on STRUCTURAL DRAFTER 18 Units are mL/min/1.73 m2 Chronic Kidney Disease Staging per NKF: Stage I & II GFR >=60 Normal to Mildly Decreased Stage III GFR 30-59 Moderately Decreased Stage IV GFR 15-29 Severely Decreased Stage V GFR <15 Very Little GFR Left ESRD GFR <15 on STRUCTURAL DRAFTER 19 Units are mL/min/1.73 m2 Chronic Kidney Disease Staging per NKF: Stage I & II GFR >=60 Normal to Mildly Decreased Stage III GFR 30-59 Moderately Decreased Stage IV GFR 15-29 Severely Decreased Stage V GFR <15 Very Little GFR Left ESRD GFR <15 on STRUCTURAL DRAFTER Procedures Date Code Description Status 06/24/2020 [id number] EKG/Interpretation & Report Comp leted 10/09/2019 [id number] Mammogram Completed 09/23/2019 [id number] Mammogram Completed 09/16/2019 [id number] Mammogram Completed 10/02/2017 [id number] Diabetic Retinal Eye Exam Comple [place] Description No Information Available Encounters Type Date [...] of unspecified female breast Arlyn Adams M.D. 07/12/2020 C50.919 Malignant neoplasm o f [...] 10:00 am - Arlyn Adams M.D. at [facility] * 09/27/2020 9:00 am - Arlyn Adams M.D. at [facility] 03/25/2020 - Arlyn Adams M.D.* [...]
--- OUTSIDE RECORDS SUMMARY | 2020-07-30 07:42 | CCD ---
Author Author [facility] Organization [facility] Address Unknown Phone Unavailable Care Team Providers Care Fruit And Vegetable Classer Name Role Phone Jory Ramachandran Unavailable PROBLEMS Type Condition ICD9-CM Code [id number] Code Onset Dates Condition S tatus SNOMED Code Notes Problem Vertigo 780.4 Active 361639295 Problem Symptomatic menopausal or female climacteric states N95.1 Active 11772353 Problem Abnormal mammogram R92.8 Active 973974907 Problem Infiltrating ductal carcinoma of right breast C50. 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 0036722721633360 Problem Malignant neoplasm of unspecified site of left female breast C50.912 Active 174800086 ALLERGIES Allergen (clinical drug ingredient) Drug/Non Drug Allergy do cumented on EMR Reaction Allergy Type Onset Date Status clindamycin Clindamycin HCl(NDC Code:[address]-56) Unknown Drug A llergy Active cephalexin Cephalexin(NDC Code:[address]-13) Rash Drug Allergy Active Iodine(NDC Code:88960-14583) Unknown Drug Allergy Active x-ray dye Anaphylaxis Non Drug Allergy Active ENCOUNTERS from 1969 to 2020-07-11 Encounter Location Date Provider Diagnosis [facility] [address] [place] [address] Jun, Jory Ramachandran IMMUNIZATIONS No Information SOCIAL HISTORY Tobacco Use: Social History Observation Description Date Details (start date - stop date) Never Smoker Sex Assigned At : Social History Observation Description Sex Assigned At Unknown Education: Question Answer Notes Level of Education: College Language: Question Answer Notes Languages spoken: Armenian Yazidi: Question Answer Notes Yazidi 08 Zoroastrianism Alcohol Screening: Question Answer Notes Did you [...] REASON FOR REFERRAL No Information VITAL SIGNS No information MEDICATIONS Medication SIG (Take, Route, Frequency, Duration) [...] Information RESULTS No Results REASON FOR VISIT results of R chest US MEDICAL (GENERAL) HISTORY Type Description Date Medical History SVT-echo and stress test done-2008 carda ic ablation x 2 Medical History Hiatal hernia Medical History sleep apnea Medical History allergies Medical History abnormal mammogram-2006 -cat. 4 Medical History kidney stones Medical History elevated cholesterol Medical History Left breast DCIS Medical History Colon abscess, Surgical History breast biopsy left/benign--ductal hyperp lasia 2005 Surgical History wisdom teeth Surgical History Left breast biopsy, 2 sites, dcis grade 3 10/09/19 Surgical History bilateral mastectomy Surgical History right breast fine chemicals operator removed Hospitalization History surgery related Hospitalization History Heart catheterization and ablasion 2 / December / March Hospitalization History Hospitalized [facility] in [place] x4 days May 2020 Goals Section No Information Health Concerns No Information MEDICAL EQUIPMENT No Information MENTAL STATUS No Information FUNCTIONAL STATUS No Information ASSESSMENTS No Information PLAN OF TREATMENT Next Appt Details Provider Name:Alayna Foote, 2020-09-16 10:00:00 AM, [address] [place] [address], [id number], Provider Name:Jory Ramachandran, 28-12-03 09:00:00 AM, [address] [place] [address], [id number], Insurance Providers Payer Name Payer Address Payer Phone Insured Name Patient Relati onship to Insured Coverage Start Date Coverage End Date BCBS [place] PPO [id number] MAN [facility] nPario [facility] [place] [id number] FRANKIE TADEO self
--- OUTSIDE RECORDS SUMMARY | 2020-07-30 07:42 | CCD | Continuity of Care Document ---
Author Author Zahra Adams M.D Organization Unknown Address [address] [facility] [address] [place] [address] Phone [phone] Care Team Providers Care Direct Service Worker Name Role Phone Geni Conti BENCH [employer] AUTM [phone] [facility] Hematology/Oncology AUTM [phone] Problems Active Problems Provider Date History of [...] day Cris Hickey FNP 03/19/2020 Excedrin Migraine [id number] Tab lets 2 q 6hrs prn po migraine Arlyn Adams M.D. 05/2020 Acetaminophen 500mg Tablets 2 by mouth every 8 hours as needed for pain Arlyn harmon M.D. 03/19/2020 Benadryl Allergy 25mg Tablets 1 po q6h prn rash Arlyn Adams M.D. 11/28/19 20 Multivitamin Adult Tablets 1 by mouth every day Phyl ALEX Moeller 09/18/2017 Gabapentin 300mg Capsules 1 PO QHS [...] Date Facility Test Result H/L Range Note CBC With Differential 05/24/2020 [facility] [address] [place] [address] [phone] White Blood Count 6.9 10 Normal 4.0-10.0 [...] 36.0-66.0 Lymph % 26.9 % Normal 24.0-44.0 [place] % 10.1 % High 0.0-5.0 Eos % 0.3 % Normal 0.0-3.0 Baso % 0.9 % Normal 0.0-1.0 Immature Granulocyte % 1.7 % Normal 0-3.0 Nucleated Red Blood Cell % 0.0 % Normal 0-0 Neutrophils # 4.2 10 Normal 1.5-8.5 Lymph # 1.9 10 Normal 1.5-5.0 [place] # 0.7 10 Normal 0.0-0.8 Eos # 0.0 10 Normal 0.0-0.5 Baso # 0.1 10 Normal 0.0-0.2 Comprehensive Metabolic Profil 05/24/[address] [address] [phone] Glucose, Fasting 94 mg/dL Normal 70-100 Blood Urea Nitrogen 13 mg/dL Normal 7-18 Creatinine For GFR 0.65 mg/dL Normal 0.55-1.30 Glomerular Filtration Rate > 60.0 Normal >51 1 Sodium Level 140 mEq/L Normal 136-145 Potassium [...] Low 1.2-2.2 CBC With Differential 05/03/[address] [address] [phone] White Blood Count 5.7 10 Normal 4.0-10.0 [...] 36.0-66.0 Lymph % 31.5 % Normal 24.0-44.0 [place] % 8.9 % High 0.0-5.0 Eos % 2.1 % Normal 0.0-3.0 Baso % 1.6 % High 0.0-1.0 Immature Granulocyte % 1.1 % Normal 0-3.0 Nucleated Red Blood Cell % 0.0 % Normal 0-0 Neutrophils # 3.1 10 Normal 1.5-8.5 Lymph # 1.8 10 Normal 1.5-5.0 [place] # 0.5 10 Normal 0.0-0.8 Eos # 0.1 10 Normal 0.0-0.5 Baso # 0.1 10 Normal 0.0-0.2 Comprehensive Metabolic Profil 05/03/[address] [address] [phone] Glucose, Fasting 120 mg/dL High 70-100 Blood Urea Nitrogen 16 mg/dL Normal 7-18 Creatinine For GFR 0.72 mg/dL Normal 0.55-1.30 Glomerular Filtration Rate > 60.0 Normal >51 2 Sodium Level 139 mEq/L Normal 136-145 [...] 0.8 Low 1.2-2.2 Coronavirus 2019 Nasopharygeal 04/22/2020 [place] [address] [phone] Coronavirus 2019 Nasopharygeal This nucleic aci <SEE N OTE> 3 CBC With Differential 04/05/[address] [id number] [phone] White Blood Count 5.4 10 Normal 4.0-10.0 [...] 36.0-66.0 Lymph % 12.1 % Low 24.0-44.0 [place] % 2.2 % Normal 0.0-5.0 Eos % 0.0 % Normal 0.0-3.0 Baso % 0.4 % Normal 0.0-1.0 Immature Granulocyte % 0.9 % Normal 0-3.0 Nucleated Red Blood Cell % 0.0 % Normal 0-0 Neutrophils # 4.5 10 Normal 1.5-8.5 Lymph # 0.7 10 Low 1.5-5.0 [place] # 0.1 10 Normal 0.0-0.8 Eos # 0.0 10 Normal 0.0-0.5 Baso # 0.0 10 Normal 0.0-0.2 Comprehensive Metabolic Profil 04/05/[address] [address] [phone] Glucose, Fasting 137 mg/dL High 70-100 Blood Urea Nitrogen 16 mg/dL Normal 7-18 Creatinine For GFR 0.70 mg/dL Normal 0.55-1.30 Glomerular Filtration Rate > 60.0 Normal >51 4 Sodium Level 139 mEq/L Normal 136-145 Potassium [...] Low 1.2-2.2 CBC With Differential 03/29/[address] [address] [phone] White Blood Count 8.4 10 Normal 4.0-10.0 [...] 36.0-66.0 Lymph % 20.9 % Low 24.0-44.0 [place] % 10.2 % High 0.0-5.0 Eos % 0.8 % Normal 0.0-3.0 Baso % 1.1 % High 0.0-1.0 Immature Granulocyte % 2.5 % Normal 0-3.0 Nucleated Red Blood Cell % 0.0 % Normal 0-0 Neutrophils # 5.4 10 Normal 1.5-8.5 Lymph # 1.8 10 Normal 1.5-5.0 [place] # 0.9 10 High 0.0-0.8 Eos # 0.1 10 Normal 0.0-0.5 Baso # 0.1 10 Normal 0.0-0.2 Comprehensive Metabolic Profil 03/29/2020 [facility] [place] [address] [place], [place] [address] [phone] Glucose, Fasting 104 mg/dL High 70-100 Blood Urea Nitrogen 15 mg/dL Normal 7-18 Creatinine For GFR 0.53 mg/dL Low 0.55-1.30 Glomerular Filtration Rate > 60.0 Normal >51 5 Sodium Level 140 mEq/L Normal 136-145 Potassium [...] Low 3.2-5.2 Albumin/Globulin Ratio 0.7 Low 1.2-2.2 Complete Blood Count 03/25/2020 [facility] Lace Tearing Supervisor: Dr William Quiroga [place], [place] [address] [phone] WBC 12.6 x10*3/UL High 4.1 - 10.9 RBC 4.48 x10*6/UL 4.20 - 6.30 Hemoglobin 12.5 g/dL 12.0 - 18.0 Hematocrit 36.6 % Low 37.0 - 51.0 MCV 81.7 fL 80.0 - 97.0 MCH 28.1 pg 26.0 - 32.0 MCHC 34.3 g/dL 31.0 - 38.0 RDW 15.0 % High 11.6 - 13.7 PLT 678 x10*3/UL High 140 - 440 6 MPV 8.4 FL 7.8 - 11.0 Lymph % 13.6 % 10.0 - 58.5 Mid % 5.1 % 1.7 - 9.3 Neut % 81.3 % 37.0 - 92.0 Lymph # 1.7 x10*3/UL 0.6 - 4.1 Mid # 0.6 x10*3/UL 0.1 - 0.6 Neut # 10.3 x10*3/UL High 2.0 - 7.8 Laboratory test finding 03/25/2020 [facility] [employer] [employer] [facility] [employer] anne, ingrid Lace Tearing Supervisor: Dr William Quiroga [place], [place] [address] [phone] Magnesium 2.2 mg/dL 1.8 - 2.4 Basic Metabolic Panel 03/25/2020 [facility] parra L[employer] Tearing Supervisor: Dr William Quiroga [place], [place] [address] [phone] Glucose 100 mg/dL High 74 - 99 7 BUN 16 mg/dL 7 - 18 Creatinine 0.6 mg/dL 0.6 - 1.3 Sodium 140 mEq/L 136 - 145 Potassium 4.7 mEq/L 3.5 - 5.1 Chloride 103 mEq/L 98 - 107 Carbon Dioxide 26 mEq/L 21 - 32 Calcium 9.1 mg/dL 8.5 - 10.1 GFR >= 60 mL/min >60 GFR >= 60 mL/min >60 8 Laboratory test finding 03/11/[address] [id number] [phone] Lipase 57 U/L Low 73-393 Basic Metabolic Profile 03/11/[address] 2768735 [phone] Glucose, Fasting 113 mg/dL High 70-100 Blood Urea Nitrogen 12 mg/dL Normal 7-18 Creatinine For GFR 0.61 mg/dL Normal 0.55-1.30 Glomerular Filtration Rate > 60.0 Normal >51 9 Sodium Level 139 mEq/L Normal 136-145 Potassium Serum 3.5 mEq/L Normal 3.5-5.1 Chloride Level 103 mEq/L Normal 98-107 Carbon Dioxide Level 28 mEq/L Normal 21-32 Anion Gap 8 mEq/L Normal 8-16 Calcium Level 8.9 mg/dL Normal 8.5-10.1 Liver Profile 03/11/2020 [facility] [address] [place] [address] [phone] Ast/Sgot 9 U/L Normal 7-37 Alt/SGPT 23 U/L Normal 12-78 Alkaline Phosphatase 68 U/L Normal 45-117 Bilirubin,Total 0.6 mg/dL Normal 0.2-1.0 Bilirubin,Direct 0.1 mg/dL Normal 0.0-0.2 Total Protein 6.8 GM/DL Normal 6.4-8.2 Albumin 3.1 GM/DL Low 3.2-5.2 Albumin/Globulin Ratio 0.8 Low 1.2-2.2 Cardiac Marker Panel 03/11/2020 [facility] [address] [place] [address] [phone] CPK Creatine Phosphokinase 34 U/L Normal 26-19 2 CK-MB Value Mass < 1.0 NG/ML Normal <3.6 MB/CK Relative Index 2.94 Normal < Or =4 10 Troponin I < 0.02 NG/ML Normal < 0.10 11 Laboratory test finding 03/11/[address] [address] [phone] Lactic Acid Sepsis Protocol 1.4 mmol/L Normal 0.4- 2.0 12 Laboratory test finding 03/11/[address] [address] [phone] Platelet Estimate NORMAL Normal Normal Differential 03/11/2020 [facility] [address] [place] [address] [phone] Neutrophils 96 % High 28-66 Lymphocytes 4 % Low 16-44 Anisocytosis 1+ Normal CBC With Differential 03/11/[address] [address] [phone] White Blood Count 12.8 10 High 4.0-10.0 [...] 0.0 % Normal 0-0 Prothrombin Time/Inr 03/11/2020 [facility] [address] [place] [address] [phone] Prothrombin Time 16.8 seconds High 11.8-14.0 Inr 1.33 Normal 13 CBC With Differential 03/08/2020 [facility] [place] [address] [phone] White Blood Count 19.9 10 High 4.0-10.0 [...] 36.0-66.0 Lymph % 7.3 % Low 24.0-44.0 [place] % 4.3 % Normal 0.0-5.0 Eos % 0.0 % Normal 0.0-3.0 Baso % 0.2 % Normal 0.0-1.0 Immature Granulocyte % 1.9 % Normal 0-3.0 Nucleated Red Blood Cell % 0.0 % Normal 0-0 Neutrophils # 17.2 10 High 1.5-8.5 Lymph # 1.5 10 Normal 1.5-5.0 [place] # 0.9 10 High 0.0-0.8 Eos # 0.0 10 Normal 0.0-0.5 Baso # 0.0 10 Normal 0.0-0.2 Comprehensive Metabolic Profil 03/08/[address] [address] [phone] Glucose, Fasting 252 mg/dL High 70-100 Blood Urea Nitrogen 16 mg/dL Normal 7-18 Creatinine For GFR 0.76 mg/dL Normal 0.55-1.30 Glomerular Filtration Rate > 60.0 Normal >51 1 4 Sodium Level 139 mEq/L Normal 136-145 Potassium [...] 0.9 Low 1.2-2.2 CBC With Differential 02/16/[address] [address] [phone] White Blood Count 16.7 10 High 4.0-10.0 [...] 36.0-66.0 Lymph % 7.3 % Low 24.0-44.0 [place] % 3.5 % Normal 0.0-5.0 Eos % 0.0 % Normal 0.0-3.0 Baso % 0.1 % Normal 0.0-1.0 Immature Granulocyte % 1.1 % Normal 0-3.0 Nucleated Red Blood Cell % 0.0 % Normal 0-0 Neutrophils # 14.7 10 High 1.5-8.5 Lymph # 1.2 10 Low 1.5-5.0 [place] # 0.6 10 Normal 0.0-0.8 Eos # 0.0 10 Normal 0.0-0.5 Baso # 0.0 10 Normal 0.0-0.2 Comprehensive Metabolic Profil 02/16/2020 [facility] [place] [address] [place] [address] [phone] Glucose, Fasting 197 mg/dL High 70-100 Blood Urea Nitrogen 17 mg/dL Normal 7-18 Creatinine For GFR 0.85 mg/dL Normal 0.55-1.30 Glomerular Filtration Rate > 60.0 Normal >51 1 5 Sodium Level 139 mEq/L Normal 136-145 [...] 1.1 Low 1.2-2.2 CBC With Differential 02/11/2020 [facility] [place] [address] [place] [address] [phone] White Blood Count 5.9 10 Normal 4.0-10.0 [...] 36.0-66.0 Lymph % 38.6 % Normal 24.0-44.0 [place] % 7.5 % High 0.0-5.0 Eos % 3.6 % High 0.0-3.0 Baso % 0.9 % Normal 0.0-1.0 Immature Granulocyte % 1.0 % Normal 0-3.0 Nucleated Red Blood Cell % 0.0 % Normal 0-0 Neutrophils # 2.8 10 Normal 1.5-8.5 Lymph # 2.3 10 Normal 1.5-5.0 [place] # 0.4 10 Normal 0.0-0.8 Eos # 0.2 10 Normal 0.0-0.5 Baso # 0.1 10 Normal 0.0-0.2 Comprehensive Metabolic Profil 02/11/[address] [address] [phone] Glucose, Fasting 106 mg/dL High 70-100 Blood Urea Nitrogen 13 mg/dL Normal 7-18 Creatinine For GFR 0.64 mg/dL Normal 0.55-1.30 Glomerular Filtration Rate > 60.0 Normal >51 1 6 Sodium Level 140 mEq/L Normal 136-145 Potassium [...] Normal 3.2-5.2 Albumin/Globulin Ratio 1.2 Normal 1.2-2.2 CBC With Differential 01/07/[address] [address] [phone] White Blood Count 7.5 10 Normal 4.0-10.0 Red Blood Count 4.27 10 Normal 4.00-5.40 Hemoglobin 12.3 g/dL Normal 12.0-15.5 Hematocrit 38.6 % Normal 36.0-47.0 Mean Corpuscular Volume 90.4 fl Normal 80.0-96.0 Mean Corpuscular Hemoglobin 28.8 pg Normal 27.0-33.0 Mean Corpuscular HGB Conc 31.9 g/dL Low 32.0-36.5 Red Cell Distribution Width 13.1 % Normal 11.5-14.5 Platelet Count, Automated 364 10 Normal 150-450 Neutrophils % 52.9 % Normal 36.0-66.0 Lymph % 33.3 % Normal 24.0-44.0 [place] % 7.9 % High 0.0-5.0 Eos % 3.5 % High 0.0-3.0 Baso % 1.1 % High 0.0-1.0 Immature Granulocyte % 1.3 % Normal 0-3.0 Nucleated Red Blood Cell % 0.0 % Normal 0-0 Neutrophils # 4.0 10 Normal 1.5-8.5 Lymph # 2.5 10 Normal 1.5-5.0 [place] # 0.6 10 Normal 0.0-0.8 Eos # 0.3 10 Normal 0.0-0.5 Baso # 0.1 10 Normal 0.0-0.2 PT & Aptt 01/07/2020 [facility] [address] [place] [address] [phone] Prothrombin Time 12.7 seconds Normal 11.8-14.0 Inr 0.98 Normal 17 Partial Thromboplastin Time 32.3 seconds Normal 25.0-38.4 Comprehensive Metabolic Profil 01/07/2020 [facility] [place] [address] [place] [address] [phone] Glucose, Fasting 90 mg/dL Normal 70-100 Blood Urea Nitrogen 17 mg/dL Normal 7-18 Creatinine For GFR 0.67 mg/dL Normal 0.55-1.30 Glomerular Filtration Rate > 60.0 Normal >51 1 8 Sodium Level 141 mEq/L Normal 136-145 Potassium Serum 4.1 mEq/L Normal 3.5-5.1 Chloride Level 109 mEq/L High 98-107 Carbon Dioxide Level 25 mEq/L Normal 21-32 Anion Gap 7 mEq/L Low 8-16 Calcium Level 8.7 mg/dL Normal 8.5-10.1 Ast/Sgot 14 U/L Normal 7-37 Alt/SGPT 27 U/L Normal 12-78 Alkaline Phosphatase 57 U/L Normal 45-117 Bilirubin,Total 0.3 mg/dL Normal 0.2-1.0 Total Protein 6.9 GM/DL Normal 6.4-8.2 Albumin 3.5 GM/DL Normal 3.2-5.2 Albumin/Globulin Ratio 1.0 Low 1.2-2.2 1 Units are mL/min/1.73 m2 Chronic Kidney Disease Staging per NKF: Stage I & II GFR >=60 Normal to Mildly Decreased Stage III GFR 30-59 Moderately Decreased Stage IV GFR 15-29 Severely Decreased Stage V GFR <15 Very Little GFR Left ESRD GFR <15 on PATIENT ACCESS COORDINATOR 2 Units are mL/min/1.73 m2 Chronic Kidney Disease Staging per NKF: Stage I & II GFR >=60 Normal to Mildly Decreased Stage III GFR 30-59 Moderately Decreased Stage IV GFR 15-29 Severely Decreased Stage V GFR <15 Very Little GFR Left ESRD GFR <15 on PATIENT ACCESS COORDINATOR 3 This nucleic acid amplificat ion test was developed and its performance characteristics determined by [employer]. Nucleic acid amplification tests include PCR and [...] detected) result in this assay. Performed at: RN - [facility] [address] [id number] Lace Tearing Supervisor: Julia Garcia MD, Phone: [phone] Not Detected 4 Units are mL/min/1.73 m2 Chronic Kidney Disease Staging per NKF: Stage I & II GFR >=60 Normal to Mildly Decreased Stage III GFR 30-59 Moderately Decreased Stage IV GFR 15-29 Severely Decreased Stage V GFR <15 Very Little GFR Left ESRD GFR <15 on PATIENT ACCESS COORDINATOR 5 Units are mL/min/1.73 m2 Chronic Kidney Disease Staging per NKF: Stage I & II GFR >=60 Normal to Mildly Decreased Stage III GFR 30-59 Moderately Decreased Stage IV GFR 15-29 Severely Decreased Stage V GFR <15 Very Little GFR Left ESRD GFR <15 on PATIENT ACCESS COORDINATOR 6 NOTE: RESULT VERIFIED. 7 100-125 mg/dL PRE-DIABET ES/FASTING >126 mg/dL DIABETES/FASTING 8 CHRONIC KIDNEY DISEASE STAGI NG PER NKF STAGE I & II GFR >= 60 NORMAL TO MILDLY DECREASED STAGE III GFR 30-59 MODERATELY DECREASED STAGE IV GFR 15-29 SEVERELY DECREASED STAGE V GFR <15 VERY LITTLE GFR LEFT ESRD GFR <15 ON PATIENT ACCESS COORDINATOR 9 Units are mL/min/1.73 m2 Chronic Kidney Disease Staging per NKF: Stage I & II GFR >=60 Normal to Mildly Decreased Stage III GFR 30-59 Moderately Decreased Stage IV GFR 15-29 Severely Decreased Stage V GFR <15 Very Little GFR Left ESRD GFR <15 on PATIENT ACCESS COORDINATOR 10 DIAGNOSIS CRITERIA MMB ng/ml Relative Index (RI) NON-AMI < or = 5 N/A LEE ZONE > 5 < or = 4 AMI > 5 > 4 11 Troponin I Reference Interva l for [employer] LOCI: 99th Percentile= 0.00-0.045 ng/ml Risk Stratification: <= 0.10 ng/ml Decreased Risk for Adverse Clinical Events. 0.10-1.50 ng/ml Increased Risk for Adv erse Clinical Events. Evaluation of additional criterion and/or repeat testing in 2-6 hours is suggested to rule out myocardial damage. >= 1.50 ng/ml Indicative of Myocardial Injury. 12 Y/N query for Sepsis Lactate Rule: Y 13 THERAPUTIC HUMAN INR VALUES INDICATIONS NORMAL RANGES PROPHYLAXIS/TREATMENT OF: VENOUS THROMBOSIS 2.0-3.0 PULMONARY EMBOLISM 2.0-3.0 PREVENTION OF SYSTEMIC EMBOLISM FROM: TISSUE HEART VALVES 2.0-3.0 ACUTE MYOCARDIAL INFARCTION 2.0-3.0 VALVULAR HEART DISEASE 2.0-3.0 ATRIAL FIBRILLATION 2.0-3.0 MECHANICAL VALVES(HIGH RISK) 2.5-3.5 RECURRENT MYOCARDIAL INFARCTION 2.5-3.5 14 Units are mL/min/1.73 m2 Chronic Kidney Disease Staging per NKF: Stage I & II GFR >=60 Normal to Mildly Decreased Stage III GFR 30-59 Moderately Decreased Stage IV GFR 15-29 Severely Decreased Stage V GFR <15 Very Little GFR Left ESRD GFR <15 on PATIENT ACCESS COORDINATOR 15 Units are mL/min/1.73 m2 Chronic Kidney Disease Staging per NKF: Stage I & II GFR >=60 Normal to Mildly Decreased Stage III GFR 30-59 Moderately Decreased Stage IV GFR 15-29 Severely Decreased Stage V GFR <15 Very Little GFR Left ESRD GFR <15 on PATIENT ACCESS COORDINATOR 16 Units are mL/min/1.73 m2 Chronic Kidney Disease Staging per NKF: Stage I & II GFR >=60 Normal to Mildly Decreased Stage III GFR 30-59 Moderately Decreased Stage IV GFR 15-29 Severely Decreased Stage V GFR <15 Very Little GFR Left ESRD GFR <15 on PATIENT ACCESS COORDINATOR 17 THERAPUTIC HUMAN INR VALUES INDICATIONS NORMAL RANGES PROPHYLAXIS/TREATMENT OF: VENOUS THROMBOSIS 2.0-3.0 PULMONARY EMBOLISM 2.0-3.0 PREVENTION OF SYSTEMIC EMBOLISM FROM: TISSUE HEART VALVES 2.0-3.0 ACUTE MYOCARDIAL INFARCTION 2.0-3.0 VALVULAR HEART DISEASE 2.0-3.0 ATRIAL FIBRILLATION 2.0-3.0 MECHANICAL VALVES(HIGH RISK) 2.5-3.5 RECURRENT MYOCARDIAL INFARCTION 2.5-3.5 18 Units are mL/min/1.73 m2 Chronic Kidney Disease Staging per NKF: Stage I & II GFR >=60 Normal to Mildly Decreased Stage III GFR 30-59 Moderately Decreased Stage IV GFR 15-29 Severely Decreased Stage V GFR <15 Very Little GFR Left ESRD GFR <15 on PATIENT ACCESS COORDINATOR Procedures Date Code Description Status 06/24/2020 [address] EKG/Interpretation & Report Comp leted 10/09/2019 [id number] Mammogram Completed 09/23/2019 [id number] Mammogram Completed 09/16/2019 [id number] Mammogram Completed 10/02/2017 [id number] Diabetic Retinal Eye Exam Comple [employer] Description No Information Available Encounters Type Date Location Provider Dx Diagnosis [facility] Visit 06/[facility]2020 [facility] Z01.810 Encounter for preprocedural cardiovascular examination C50.919 Malignant neoplasm of unsp s ite of unspecified female breast I47.1 Supraventricular tachycardia K57.92 Dvtrcli of intest, part unsp , w/o perf or abscess w/o bleed Office Visit 03/25/2020 10:[facility]a [facility] C50.919 Malignant neoplasm of [...] Adams M.D. Plan of Treatment Future Appointment(s):* 07/12/2020 10:20 am - Lab Schedule at [facility] * 07/29/2020 10:00 am - [facility] * 09/27/2020 9:00 am - Arlyn [facility] M[facility] at [facility] 03/25/2020 - Arlyn Adams M.D.* C50.919 [...]
--- OUTSIDE RECORDS SUMMARY | 2020-07-30 07:42 | CCD ---
Author Author [facility] Organization [facility] Address Unknown Phone Unavailable Care Team Providers Care Forklift Wheel Loader Name Role Phone Alayna Foote Unavailable PROBLEMS Type Condition ICD9-CM Code [id number] Code Onset Dates Condition S tatus SNOMED Code Notes Problem Vertigo 780.4 Active 247357151 Problem Symptomatic menopausal or female climacteric states N95.1 Active 64485627 Problem Abnormal mammogram R92.8 Active 598123075 Problem Infiltrating ductal carcinoma of right breast C50. 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 5350848721023747 Problem Malignant neoplasm of unspecified site of left female breast C50.912 Active 888276825 ALLERGIES Allergen (clinical drug ingredient) Drug/Non Drug Allergy do cumented on EMR Reaction Allergy Type Onset Date Status clindamycin Clindamycin HCl(NDC Code:[address]-69) Unknown Drug A llergy Active cephalexin Cephalexin(NDC Code:[address]-41) Rash Drug Allergy Active Iodine(ND Code:84586-74946) Unknown Drug Allergy Active x-ray dye Anaphylaxis Non Drug Allergy Active ENCOUNTERS from 1969 to 2020-07-06 Encounter Location Date Provider Diagnosis [facility] [address] [place] [address] Jun, Alayna Foote Pelvic adhesions N73 .6 IMMUNIZATIONS No Information SOCIAL HISTORY Tobacco Use: Social History Observation Description Date Details (start date - stop date) Never Smoker Sex Assigned At : Social History Observation Description Sex Assigned At Unknown Education: Question Answer Notes Level of Education: College Language: Question Answer Notes Languages spoken: Algerian Adventist: Question Answer Notes Adventist 08 [employer] Alcohol Screening: Question Answer Notes Did you [...] FOR REFERRAL No Information VITAL SIGNS Weight 173 lbs Jun, Weight-kg 78.47 kg Jun, Height 61.75 in Jun, BMI 31.9 kg/m2 Jun, Blood pressure systolic 133 mm Hg Jun, Blood pressure diastolic 82 mm Hg Jun, MEDICATIONS Medication SIG (Take, [...] Information RESULTS No Results REASON FOR VISIT HAVING ISSUES WITH HER LEFT OVARY AND UTERUS?, pelvic exam MEDICAL (GENERAL) HISTORY Type Description Date Medical History SVT-echo and stress test done-2008 carda ic ablation x 2 Medical History Hiatal hernia Medical History sleep apnea Medical History allergies Medical History abnormal mammogram-2006 -cat. 4 Medical History kidney stones Medical History elevated cholesterol Medical History Left breast DCIS Medical History Colon abscess, Surgical History breast biopsy left/benign--ductal hyperp lasia 2006 Surgical History wisdom teeth Surgical History Left breast biopsy, 2 sites, dcis grade 3 10/09/19 Surgical History bilateral mastectomy Surgical History right breast supervisor mails removed Hospitalization History surgery related Hospitalization History Heart catheterization and ablasion 2 December Hospitalization History Hospitalized [facility] [place] x4 days May 2020 Goals Section No Information Health Concerns No Information MEDICAL EQUIPMENT No Information MENTAL STATUS No Information FUNCTIONAL STATUS No Information ASSESSMENTS Encounter Date Diagnosis Assessment Notes Treatment Notes Treatm ent Clinical Notes Jun, Pelvic adhesions (ICD-10 - N73.6) Will obtain records from [place] .I have reviewed all her CT scans from [facility] as well as notes from oncology and ER .I have found no evidence for adhesions on any of these reports .DOLLY PUSHER surgeon consult prn PLAN OF TREATMENT Treatment Notes Assessment Notes Clinical Notes Pelvic adhesions Will obtain records from [place] .I have reviewed all her CT scans from [facility] as well as notes from oncology and ER .I have found no evidence for adhesions on any of these reports .DOLLY PUSHER surgeon consult prn Next Appt Details Provider Name:Alayna Foote, 2020-09-16 10:00:00 AM, [address] [place] [address], [phone], Provider Name:Jory Ramachandran, 28-12-03 09:00:00 AM, [address] [place] [address], [id number], Insurance Providers Payer Name Payer Address Payer Phone Insured Name Patient Relati onship to Insured Coverage Start Date Coverage End Date BRI LEDESMA PPO [phone] [facility] Modafirma ELISEO BERRIOS [id number] FRANKIE TADEO self
--- OUTSIDE RECORDS SUMMARY | 2020-07-30 07:42 | CCD | Continuity of Care Document ---
Author Author Lab Schedule, [employer] Organization Unknown Address [address] [address] Phone Unavailable Care Team Providers Care Client Success Director Name Role Phone Geni Conti COMPONENT ASSEMBLER SUPERVISOR AUTM [phone] [facility] Hematology/Oncology AUTM [phone] Problems Active Problems Provider Date History of [...] every day Cris Hickey,ALEX 03/19/2020 Excedrin Migraine [phone] Tab lets 2 q 6hrs prn po migraine Arlyn Adams M.D. 05/2020 Acetaminophen 500mg Tablets 2 by mouth every 8 hours as needed for pain Arlyn harmon M.D. 03/19/2020 Benadryl Allergy 25mg Tablets 1 po q6h prn rash Arlyn Adams M.D. 11/28/19 20 Multivitamin Adult Tablets 1 by mouth every day Phyl Moeller, COMPONENT ASSEMBLER SUPERVISOR 09/18/2017 Gabapentin 300mg Capsules 1 PO QHS [...] Result H/L Range Note Ua Routine 07/12/2020 [facility] nter [address] [place], [place] [id number] [phone] Appearance, Urine TURBID High Clear Color, Urine YELLOW Normal Yellow PH,Urine 5.0 units Normal 5.0-9.0 Specific [place] Urine Auto 1.023 Normal 1.002-1.035 Protein, Urine [...] SMALL High Negative Laboratory test finding 07/12/2020 [facility] [address] [place] [address] [phone] HCG, Serum Quantitative < 1.0 MIU/ML Normal 1 Complete Blood Count 07/12/2020 [facility] Investment Sales Assistant: [place] [address] [phone] WBC 6.3 x10*3/UL 4.1 - 10.9 RBC [...] 2.0 - 7.8 Comprehensive Chem Profile 07/12/2020 [facility] Investment Sales Assistant: [place] [address] [phone] Glucose 109 mg/dL High 74 - 99 [...] mL/min >60 3 CBC With Differential 05/24/2020 [place] [id number] [phone] White Blood Count 6.9 10 Normal 4.0-10.0 [...] 36.0-66.0 Lymph % 26.9 % Normal 24.0-44.0 [place] % 10.1 % High 0.0-5.0 Eos % 0.3 % Normal 0.0-3.0 Baso % 0.9 % Normal 0.0-1.0 Immature Granulocyte % 1.7 % Normal 0-3.0 Nucleated Red Blood Cell % 0.0 % Normal 0-0 Neutrophils # 4.2 10 Normal 1.5-8.5 Lymph # 1.9 10 Normal 1.5-5.0 [place] # 0.7 10 Normal 0.0-0.8 Eos # 0.0 10 Normal 0.0-0.5 Baso # 0.1 10 Normal 0.0-0.2 Comprehensive Metabolic Profil 05/24/[address] [id number] [phone] Glucose, Fasting 94 mg/dL Normal 70-100 Blood [...] 1.0 Low 1.2-2.2 CBC With Differential 05/03/[address] [address] [phone] White Blood Count 5.7 10 Normal 4.0-10.0 [...] 36.0-66.0 Lymph % 31.5 % Normal 24.0-44.0 [place] % 8.9 % High 0.0-5.0 Eos % 2.1 % Normal 0.0-3.0 Baso % 1.6 % High 0.0-1.0 Immature Granulocyte % 1.1 % Normal 0-3.0 Nucleated Red Blood Cell % 0.0 % Normal 0-0 Neutrophils # 3.1 10 Normal 1.5-8.5 Lymph # 1.8 10 Normal 1.5-5.0 [place] # 0.5 10 Normal 0.0-0.8 Eos # 0.1 10 Normal 0.0-0.5 Baso # 0.1 10 Normal 0.0-0.2 Comprehensive Metabolic Profil 05/03/[address] [address] [phone] Glucose, Fasting 120 mg/dL High 70-100 Blood [...] 0.8 Low 1.2-2.2 Coronavirus 2019 Nasopharygeal 04/22/[address] [address] [phone] Coronavirus 2019 Nasopharygeal This nucleic aci <SEE N OTE> 6 CBC With Differential 04/05/[address] [address] [phone] White Blood Count 5.4 10 Normal 4.0-10.0 [...] 36.0-66.0 Lymph % 12.1 % Low 24.0-44.0 [place] % 2.2 % Normal 0.0-5.0 Eos % 0.0 % Normal 0.0-3.0 Baso % 0.4 % Normal 0.0-1.0 Immature Granulocyte % 0.9 % Normal 0-3.0 Nucleated Red Blood Cell % 0.0 % Normal 0-0 Neutrophils # 4.5 10 Normal 1.5-8.5 Lymph # 0.7 10 Low 1.5-5.0 [place] # 0.1 10 Normal 0.0-0.8 Eos # 0.0 10 Normal 0.0-0.5 Baso # 0.0 10 Normal 0.0-0.2 Comprehensive Metabolic Profil 04/05/[address] [address] [phone] Glucose, Fasting 137 mg/dL High 70-100 Blood [...] 0.8 Low 1.2-2.2 CBC With Differential 03/29/[address] [address] [phone] White Blood Count 8.4 10 Normal 4.0-10.0 [...] 36.0-66.0 Lymph % 20.9 % Low 24.0-44.0 [place] % 10.2 % High 0.0-5.0 Eos % 0.8 % Normal 0.0-3.0 Baso % 1.1 % High 0.0-1.0 Immature Granulocyte % 2.5 % Normal 0-3.0 Nucleated Red Blood Cell % 0.0 % Normal 0-0 Neutrophils # 5.4 10 Normal 1.5-8.5 Lymph # 1.8 10 Normal 1.5-5.0 [place] # 0.9 10 High 0.0-0.8 Eos # 0.1 10 Normal 0.0-0.5 Baso # 0.1 10 Normal 0.0-0.2 Comprehensive Metabolic Profil 03/29/[address] [address] [phone] Glucose, Fasting 104 mg/dL High 70-100 Blood [...] 0.7 Low 1.2-2.2 Basic Metabolic Panel 03/25/2020 [facility] Investment Sales Assistant: [place] [address] [phone] Glucose 100 mg/dL High 74 - 99 [...] mL/min >60 10 Laboratory test finding 03/25/2020 [facility] Investment Sales Assistant: [place] [address] [phone] Magnesium 2.2 mg/dL 1.8 - 2.4 Complete Blood Count 03/25/2020 [facility] Investment Sales Assistant: [place] [address] [phone] WBC 12.6 x10*3/UL High 4.1 - 10.9 [...] 2.0 - 7.8 Laboratory test finding 03/11/2020 [facility] [address] [place] [address] [phone] Lipase 57 U/L Low 73-393 Basic Metabolic Profile 03/11/2020 [place] 0753414 [phone] Glucose, Fasting 113 mg/dL High 70-100 Blood [...] 8.9 mg/dL Normal 8.5-10.1 Liver Profile 03/11/2020 [facility] nter [address] [place] 2385346 [phone] Ast/Sgot 9 U/L Normal 7-37 Alt/SGPT 23 U/L Normal 12-78 Alkaline Phosphatase 68 U/L Normal 45-117 Bilirubin,Total 0.6 mg/dL Normal 0.2-1.0 Bilirubin,Direct 0.1 mg/dL Normal 0.0-0.2 Total Protein 6.8 GM/DL Normal 6.4-8.2 Albumin 3.1 GM/DL Low 3.2-5.2 Albumin/Globulin Ratio 0.8 Low 1.2-2.2 Cardiac Marker Panel 03/11/2020 [facility] C enter [address] [place] [address] [phone] CPK Creatine Phosphokinase 34 U/L Normal 26-19 2 CK-MB Value Mass < 1.0 NG/ML Normal <3.6 MB/CK Relative Index 2.94 Normal < Or =4 13 Troponin I < 0.02 NG/ML Normal < 0.10 14 Laboratory test finding 03/11/[address] [address] [phone] Lactic Acid Sepsis Protocol 1.4 mmol/L Normal 0.4- 2.0 15 Laboratory test finding 03/11/[address] [address] [phone] Platelet Estimate NORMAL Normal Normal Differential 03/11/2020 [facility] nter [address] [place] [address] [phone] Neutrophils 96 % High 28-66 Lymphocytes 4 % Low 16-44 Anisocytosis 1+ Normal CBC With Differential 03/11/[address] [address] [phone] White Blood Count 12.8 10 High 4.0-10.0 [...] 0.0 % Normal 0-0 Prothrombin Time/Inr 03/11/2020 [facility] enter [address] [place] [address] [phone] Prothrombin Time 16.8 seconds High 11.8-14.0 Inr 1.33 Normal 16 CBC With Differential 03/08/[address] [address] [phone] White Blood Count 19.9 10 High 4.0-10.0 [...] 36.0-66.0 Lymph % 7.3 % Low 24.0-44.0 [place] % 4.3 % Normal 0.0-5.0 Eos % 0.0 % Normal 0.0-3.0 Baso % 0.2 % Normal 0.0-1.0 Immature Granulocyte % 1.9 % Normal 0-3.0 Nucleated Red Blood Cell % 0.0 % Normal 0-0 Neutrophils # 17.2 10 High 1.5-8.5 Lymph # 1.5 10 Normal 1.5-5.0 [place] # 0.9 10 High 0.0-0.8 Eos # 0.0 10 Normal 0.0-0.5 Baso # 0.0 10 Normal 0.0-0.2 Comprehensive Metabolic Profil 03/08/2020 [place] 7597723 [phone] Glucose, Fasting 252 mg/dL High 70-100 Blood [...] 0.9 Low 1.2-2.2 CBC With Differential 02/16/2020 [place] [address] [place], [place] [address]155 [phone] White Blood Count 16.7 10 High 4.0-10.0 [...] 36.0-66.0 Lymph % 7.3 % Low 24.0-44.0 [place] % 3.5 % Normal 0.0-5.0 Eos % 0.0 % Normal 0.0-3.0 Baso % 0.1 % Normal 0.0-1.0 Immature Granulocyte % 1.1 % Normal 0-3.0 Nucleated Red Blood Cell % 0.0 % Normal 0-0 Neutrophils # 14.7 10 High 1.5-8.5 Lymph # 1.2 10 Low 1.5-5.0 [place] # 0.6 10 Normal 0.0-0.8 Eos # 0.0 10 Normal 0.0-0.5 Baso # 0.0 10 Normal 0.0-0.2 Comprehensive Metabolic Profil 02/16/[address] [address] [phone] Glucose, Fasting 197 mg/dL High 70-100 Blood [...] 1.1 Low 1.2-2.2 CBC With Differential 02/11/[address] 9976041 [phone] White Blood Count 5.9 10 Normal 4.0-10.0 [...] 36.0-66.0 Lymph % 38.6 % Normal 24.0-44.0 [place] % 7.5 % High 0.0-5.0 Eos % 3.6 % High 0.0-3.0 Baso % 0.9 % Normal 0.0-1.0 Immature Granulocyte % 1.0 % Normal 0-3.0 Nucleated Red Blood Cell % 0.0 % Normal 0-0 Neutrophils # 2.8 10 Normal 1.5-8.5 Lymph # 2.3 10 Normal 1.5-5.0 [place] # 0.4 10 Normal 0.0-0.8 Eos # 0.2 10 Normal 0.0-0.5 Baso # 0.1 10 Normal 0.0-0.2 Comprehensive Metabolic Profil 02/11/2020 [place] 7597792 [phone] Glucose, Fasting 106 mg/dL High 70-100 Blood [...] monitoring the treatment of cancer patients. Siemens Fuzz methodology. 2 100-125 mg/dL PRE-DIABET ES/FASTING >126 mg/dL DIABETES/FASTING 3 CHRONIC KIDNEY DISEASE STAGI NG PER NKF STAGE I & II GFR >= 60 NORMAL TO MILDLY DECREASED STAGE III GFR 30-59 MODERATELY DECREASED STAGE IV GFR 15-29 SEVERELY DECREASED STAGE V GFR <15 VERY LITTLE GFR LEFT ESRD GFR <15 ON GLASS LAMINATING OPERATOR 4 Units are mL/min/1.73 m2 Chronic Kidney Disease Staging per NKF: Stage I & II GFR >=60 Normal to Mildly Decreased Stage III GFR 30-59 Moderately Decreased Stage IV GFR 15-29 Severely Decreased Stage V GFR <15 Very Little GFR Left ESRD GFR <15 on GLASS LAMINATING OPERATOR 5 Units are mL/min/1.73 m2 Chronic Kidney Disease Staging per NKF: Stage I & II GFR >=60 Normal to Mildly Decreased Stage III GFR 30-59 Moderately Decreased Stage IV GFR 15-29 Severely Decreased Stage V GFR <15 Very Little GFR Left ESRD GFR <15 on GLASS LAMINATING OPERATOR 6 This nucleic acid amplificat ion test was developed and its performance characteristics determined by [employer]. Nucleic acid amplification tests include PCR and [...] detected) result in this assay. Performed at: [facility] [address] [id number] Investment Sales Assistant: Julia Garcia MD, Phone: [phone] Not Detected 7 Units are mL/min/1.73 m2 Chronic Kidney Disease Staging per NKF: Stage I & II GFR >=60 Normal to Mildly Decreased Stage III GFR 30-59 Moderately Decreased Stage IV GFR 15-29 Severely Decreased Stage V GFR <15 Very Little GFR Left ESRD GFR <15 on GLASS LAMINATING OPERATOR 8 Units are mL/min/1.73 m2 Chronic Kidney Disease Staging per NKF: Stage I & II GFR >=60 Normal to Mildly Decreased Stage III GFR 30-59 Moderately Decreased Stage IV GFR 15-29 Severely Decreased Stage V GFR <15 Very Little GFR Left ESRD GFR <15 on GLASS LAMINATING OPERATOR 9 100-125 mg/dL PRE-DIABET ES/FASTING >126 mg/dL DIABETES/FASTING 10 CHRONIC KIDNEY DISEASE STAGI NG PER NKF STAGE I & II GFR >= 60 NORMAL TO MILDLY DECREASED STAGE III GFR 30-59 MODERATELY DECREASED STAGE IV GFR 15-29 SEVERELY DECREASED STAGE V GFR <15 VERY LITTLE GFR LEFT ESRD GFR <15 ON GLASS LAMINATING OPERATOR 11 NOTE: RESULT VERIFIED. 12 Units are mL/min/1.73 m2 Chronic Kidney Disease Staging per NKF: Stage I & II GFR >=60 Normal to Mildly Decreased Stage III GFR 30-59 Moderately Decreased Stage IV GFR 15-29 Severely Decreased Stage V GFR <15 Very Little GFR Left ESRD GFR <15 on GLASS LAMINATING OPERATOR 13 DIAGNOSIS CRITERIA MMB ng/ml Relative Index (RI) NON-AMI < or = 5 N/A LEE ZONE > 5 < or = 4 AMI > 5 > 4 14 Troponin I Reference Interva l for Metabolix LOCI: 99th Percentile= 0.00-0.045 ng/ml Risk Stratification: [...] Little GFR Left ESRD GFR <15 on GLASS LAMINATING OPERATOR 18 Units are mL/min/1.73 m2 Chronic Kidney Disease Staging per NKF: Stage I & II GFR >=60 Normal to Mildly Decreased Stage III GFR 30-59 Moderately Decreased Stage IV GFR 15-29 Severely Decreased Stage V GFR <15 Very Little GFR Left ESRD GFR <15 on GLASS LAMINATING OPERATOR 19 Units are mL/min/1.73 m2 Chronic Kidney Disease Staging per NKF: Stage I & II GFR >=60 Normal to Mildly Decreased Stage III GFR 30-59 Moderately Decreased Stage IV GFR 15-29 Severely Decreased Stage V GFR <15 Very Little GFR Left ESRD GFR <15 on GLASS LAMINATING OPERATOR Procedures Date Code Description Status 06/24/2020 77876 EKG/Interpretation & Report Comp leted 10/09/2019 [id number] Mammogram Completed 09/23/2019 [id number] Mammogram Completed 09/16/2019 [id number] Mammogram Completed 10/02/2017 [id number] Diabetic Retinal Eye Exam Comple Invenra Description No Information Available Encounters Type Date [...] 10:00 am - Arlyn Adams M.D. at [facility] * 09/27/2020 9:00 am - Arlyn Adams M.D. at [facility] 03/25/2020 - Arlyn Adams M.D.* [...]
--- OUTSIDE RECORDS SUMMARY | 2020-07-30 07:42 | CCD | Continuity of Care Document ---
Author Author Lab Schedule, [facility] Organization Unknown Address [address] [address] Phone Unavailable Care Team Providers Care Ultrasound Tech Name Role Phone Geni Conti DOUGHNUT MACHINE OPERATOR HELPER AUTM [phone] [facility] Hematology/Oncology AUTM [phone] Problems Active Problems Provider Date History of [...] Capsul es 1 by mouth every day rCis Hickey,ALEX 03/19/2020 Excedrin Migraine [phone] Tab lets 2 q 6hrs prn po [...] H/L Range Note CBC With Differential 05/24/2020 [facility] [address] [place], [place] [id number] [phone] White Blood Count 6.9 10 Normal 4.0-10.0 [...] 36.0-66.0 Lymph % 26.9 % Normal 24.0-44.0 [place] % 10.1 % High 0.0-5.0 Eos % 0.3 % Normal 0.0-3.0 Baso % 0.9 % Normal 0.0-1.0 Immature Granulocyte % 1.7 % Normal 0-3.0 Nucleated Red Blood Cell % 0.0 % Normal 0-0 Neutrophils # 4.2 10 Normal 1.5-8.5 Lymph # 1.9 10 Normal 1.5-5.0 [place] # 0.7 10 Normal 0.0-0.8 Eos # 0.0 10 Normal 0.0-0.5 Baso # 0.1 10 Normal 0.0-0.2 Comprehensive Metabolic Profil 05/24/2020 [place] 1001259 [phone] Glucose, Fasting 94 mg/dL Normal 70-100 Blood [...] 1.0 Low 1.2-2.2 CBC With Differential 05/03/[address] [address] [phone] White Blood Count 5.7 10 Normal 4.0-10.0 [...] 36.0-66.0 Lymph % 31.5 % Normal 24.0-44.0 [place] % 8.9 % High 0.0-5.0 Eos % 2.1 % Normal 0.0-3.0 Baso % 1.6 % High 0.0-1.0 Immature Granulocyte % 1.1 % Normal 0-3.0 Nucleated Red Blood Cell % 0.0 % Normal 0-0 Neutrophils # 3.1 10 Normal 1.5-8.5 Lymph # 1.8 10 Normal 1.5-5.0 [place] # 0.5 10 Normal 0.0-0.8 Eos # 0.1 10 Normal 0.0-0.5 Baso # 0.1 10 Normal 0.0-0.2 Comprehensive Metabolic Profil 05/03/[address] [address] [phone] Glucose, Fasting 120 mg/dL High 70-100 Blood [...] 0.8 Low 1.2-2.2 Coronavirus 2019 Nasopharygeal 04/22/2020 [place] 1001298 [phone] Coronavirus 2019 Nasopharygeal This nucleic aci <SEE N OTE> 3 CBC With Differential 04/05/[address] 2113308 [phone] White Blood Count 5.4 10 Normal 4.0-10.0 [...] 36.0-66.0 Lymph % 12.1 % Low 24.0-44.0 [place] % 2.2 % Normal 0.0-5.0 Eos % 0.0 % Normal 0.0-3.0 Baso % 0.4 % Normal 0.0-1.0 Immature Granulocyte % 0.9 % Normal 0-3.0 Nucleated Red Blood Cell % 0.0 % Normal 0-0 Neutrophils # 4.5 10 Normal 1.5-8.5 Lymph # 0.7 10 Low 1.5-5.0 [place] # 0.1 10 Normal 0.0-0.8 Eos # 0.0 10 Normal 0.0-0.5 Baso # 0.0 10 Normal 0.0-0.2 Comprehensive Metabolic Profil 04/05/[address] [address] [phone] Glucose, Fasting 137 mg/dL High 70-100 Blood [...] Normal 3.2-5.2 Albumin/Globulin Ratio 0.8 Low 1.2-2.2 Comprehensive Metabolic Profil 03/29/[address] [address] [phone] Glucose, Fasting 104 mg/dL High 70-100 Blood [...] Low 3.2-5.2 Albumin/Globulin Ratio 0.7 Low 1.2-2.2 CBC With Differential 03/29/2020 [facility] [address] [place], [place] [address]605 [phone] White Blood Count 8.4 10 Normal 4.0-10.0 [...] 36.0-66.0 Lymph % 20.9 % Low 24.0-44.0 [place] % 10.2 % High 0.0-5.0 Eos % 0.8 % Normal 0.0-3.0 Baso % 1.1 % High 0.0-1.0 Immature Granulocyte % 2.5 % Normal 0-3.0 Nucleated Red Blood Cell % 0.0 % Normal 0-0 Neutrophils # 5.4 10 Normal 1.5-8.5 Lymph # 1.8 10 Normal 1.5-5.0 [place] # 0.9 10 High 0.0-0.8 Eos # 0.1 10 Normal 0.0-0.5 Baso # 0.1 10 Normal 0.0-0.2 Complete Blood Count 03/25/2020 [facility] Trimmer Loader: [place] [address] [phone] WBC 12.6 x10*3/UL High 4.1 - 10.9 [...] 2.0 - 7.8 Laboratory test finding 03/25/2020 [facility] Trimmer Loader: Dr William Quiroga [place], [place] [address] [phone] Magnesium 2.2 mg/dL 1.8 - 2.4 Basic Metabolic Panel 03/25/2020 [facility] Trimmer Loader: Dr William Quiroga [place], [place] [address] [phone] Glucose 100 mg/dL High 74 - 99 [...] mL/min >60 8 Laboratory test finding 03/11/2020 [facility] [address] [place] [address] [phone] Lipase 57 U/L Low 73-393 Basic Metabolic Profile 03/11/2020 [facility] [address] [place] [address] [phone] Glucose, Fasting 113 mg/dL High 70-100 Blood [...] 8.9 mg/dL Normal 8.5-10.1 Liver Profile 03/11/2020 [facility] nter [address] [place] [address] [phone] Ast/Sgot 9 U/L Normal 7-37 Alt/SGPT 23 U/L Normal 12-78 Alkaline Phosphatase 68 U/L Normal 45-117 Bilirubin,Total 0.6 mg/dL Normal 0.2-1.0 Bilirubin,Direct 0.1 mg/dL Normal 0.0-0.2 Total Protein 6.8 GM/DL Normal 6.4-8.2 Albumin 3.1 GM/DL Low 3.2-5.2 Albumin/Globulin Ratio 0.8 Low 1.2-2.2 Cardiac Marker Panel 03/11/2020 [facility] enter [address] [place] [address] [phone] CPK Creatine Phosphokinase 34 U/L Normal 26-19 2 CK-MB Value Mass < 1.0 NG/ML Normal <3.6 MB/CK Relative Index 2.94 Normal < Or =4 10 Troponin I < 0.02 NG/ML Normal < 0.10 11 Laboratory test finding 03/11/[address] [address] [phone] Lactic Acid Sepsis Protocol 1.4 mmol/L Normal 0.4- 2.0 12 Laboratory test finding 03/11/2020 [place] 3614248 [phone] Platelet Estimate NORMAL Normal Normal Differential 03/11/2020 [facility] nter [address] [place] [address] [phone] Neutrophils 96 % High 28-66 Lymphocytes 4 % Low 16-44 Anisocytosis 1+ Normal CBC With Differential 03/11/[address] [address] [phone] White Blood Count 12.8 10 High 4.0-10.0 [...] 0.0 % Normal 0-0 Prothrombin Time/Inr 03/11/2020 [facility] C enter [address] [place] [address] [phone] Prothrombin Time 16.8 seconds High 11.8-14.0 Inr 1.33 Normal 13 CBC With Differential 03/08/2020 [place] [address] [place] [address] [phone] White Blood Count 19.9 10 High 4.0-10.0 [...] 36.0-66.0 Lymph % 7.3 % Low 24.0-44.0 [place] % 4.3 % Normal 0.0-5.0 Eos % 0.0 % Normal 0.0-3.0 Baso % 0.2 % Normal 0.0-1.0 Immature Granulocyte % 1.9 % Normal 0-3.0 Nucleated Red Blood Cell % 0.0 % Normal 0-0 Neutrophils # 17.2 10 High 1.5-8.5 Lymph # 1.5 10 Normal 1.5-5.0 [place] # 0.9 10 High 0.0-0.8 Eos # 0.0 10 Normal 0.0-0.5 Baso # 0.0 10 Normal 0.0-0.2 Comprehensive Metabolic Profil 03/08/[address] [address] [phone] Glucose, Fasting 252 mg/dL High 70-100 Blood [...] 0.9 Low 1.2-2.2 CBC With Differential 02/16/[address] [address] [phone] White Blood Count 16.7 10 High 4.0-10.0 [...] 36.0-66.0 Lymph % 7.3 % Low 24.0-44.0 [place] % 3.5 % Normal 0.0-5.0 Eos % 0.0 % Normal 0.0-3.0 Baso % 0.1 % Normal 0.0-1.0 Immature Granulocyte % 1.1 % Normal 0-3.0 Nucleated Red Blood Cell % 0.0 % Normal 0-0 Neutrophils # 14.7 10 High 1.5-8.5 Lymph # 1.2 10 Low 1.5-5.0 [place] # 0.6 10 Normal 0.0-0.8 Eos # 0.0 10 Normal 0.0-0.5 Baso # 0.0 10 Normal 0.0-0.2 Comprehensive Metabolic Profil 02/16/[address] 2416381 [phone] Glucose, Fasting 197 mg/dL High 70-100 Blood [...] 1.1 Low 1.2-2.2 CBC With Differential 02/11/[address] [address] [phone] White Blood Count 5.9 10 Normal 4.0-10.0 [...] 36.0-66.0 Lymph % 38.6 % Normal 24.0-44.0 [place] % 7.5 % High 0.0-5.0 Eos % 3.6 % High 0.0-3.0 Baso % 0.9 % Normal 0.0-1.0 Immature Granulocyte % 1.0 % Normal 0-3.0 Nucleated Red Blood Cell % 0.0 % Normal 0-0 Neutrophils # 2.8 10 Normal 1.5-8.5 Lymph # 2.3 10 Normal 1.5-5.0 [place] # 0.4 10 Normal 0.0-0.8 Eos # 0.2 10 Normal 0.0-0.5 Baso # 0.1 10 Normal 0.0-0.2 Comprehensive Metabolic Profil 02/11/[address] [address] [phone] Glucose, Fasting 106 mg/dL High 70-100 Blood [...] 3.2-5.2 Albumin/Globulin Ratio 1.2 Normal 1.2-2.2 1 Units are mL/min/1.73 m2 Chronic Kidney Disease Staging per NKF: Stage I & II GFR >=60 Normal to Mildly Decreased Stage III GFR 30-59 Moderately Decreased Stage IV GFR 15-29 Severely Decreased Stage V GFR <15 Very Little GFR Left ESRD GFR <15 on PLANTING MATERIAL UNLOADER 2 Units are mL/min/1.73 m2 Chronic Kidney Disease Staging per NKF: Stage I & II GFR >=60 Normal to Mildly Decreased Stage III GFR 30-59 Moderately Decreased Stage IV GFR 15-29 Severely Decreased Stage V GFR <15 Very Little GFR Left ESRD GFR <15 on PLANTING MATERIAL UNLOADER 3 This nucleic acid amplificat ion test was developed and its performance characteristics determined by [employer]. Nucleic acid amplification tests include PCR and [...] detected) result in this assay. Performed at: [address] [id number] Trimmer Loader: Julia Garcia MD, Phone: [phone] Not Detected 4 Units are mL/min/1.73 m2 Chronic Kidney Disease Staging per NKF: Stage I & II GFR >=60 Normal to Mildly Decreased Stage III GFR 30-59 Moderately Decreased Stage IV GFR 15-29 Severely Decreased Stage V GFR <15 Very Little GFR Left ESRD GFR <15 on PLANTING MATERIAL UNLOADER 5 Units are mL/min/1.73 m2 Chronic Kidney Disease Staging per NKF: Stage I & II GFR >=60 Normal to Mildly Decreased Stage III GFR 30-59 Moderately Decreased Stage IV GFR 15-29 Severely Decreased Stage V GFR <15 Very Little GFR Left ESRD GFR <15 on PLANTING MATERIAL UNLOADER 6 NOTE: RESULT VERIFIED. 7 100-125 mg/dL PRE-DIABET ES/FASTING >126 mg/dL DIABETES/FASTING 8 CHRONIC KIDNEY DISEASE STAGI NG PER NKF STAGE I & II GFR >= 60 NORMAL TO MILDLY DECREASED STAGE III GFR 30-59 MODERATELY DECREASED STAGE IV GFR 15-29 SEVERELY DECREASED STAGE V GFR <15 VERY LITTLE GFR LEFT ESRD GFR <15 ON PLANTING MATERIAL UNLOADER 9 Units are mL/min/1.73 m2 Chronic Kidney Disease Staging per NKF: Stage I & II GFR >=60 Normal to Mildly Decreased Stage III GFR 30-59 Moderately Decreased Stage IV GFR 15-29 Severely Decreased Stage V GFR <15 Very Little GFR Left ESRD GFR <15 on PLANTING MATERIAL UNLOADER 10 DIAGNOSIS CRITERIA MMB ng/ml Relative Index (RI) NON-AMI < or = 5 N/A LEE ZONE > 5 < or = 4 AMI > 5 > 4 11 Troponin I Reference Interva l for [place] LOCI: 99th Percentile= 0.00-0.045 ng/ml Risk Stratification: [...] Little GFR Left ESRD GFR <15 on PLANTING MATERIAL UNLOADER 15 Units are mL/min/1.73 m2 Chronic Kidney Disease Staging per NKF: Stage I & II GFR >=60 Normal to Mildly Decreased Stage III GFR 30-59 Moderately Decreased Stage IV GFR 15-29 Severely Decreased Stage V GFR <15 Very Little GFR Left ESRD GFR <15 on [employer] 16 Units are mL/min/1.73 m2 Chronic Kidney Disease Staging per NKF: Stage I & II GFR >=60 Normal to Mildly Decreased Stage III GFR 30-59 Moderately Decreased Stage IV GFR 15-29 Severely Decreased Stage V GFR <15 Very Little GFR Left ESRD GFR <15 on [employer] Procedures Date Code Description Status 06/24/2020 13034 EKG/Interpretation & Report Comp leted 10/09/2019 [id number] Mammogram Completed 09/23/2019 [id number] Mammogram Completed 09/16/2019 [id number] Mammogram Completed 10/02/2017 [id number] Diabetic Retinal Eye Exam Comple [employer] Description No Information Available Encounters Type Date Location Provider Dx Diagnosis Office Visit 06/24/2020 10:00a [facility] M.D. Z01.810 Encounter for preprocedural cardiovascular examination C50.919 Malignant neoplasm of unsp s ite of unspecified female breast I47.1 Supraventricular tachycardia K57.92 Dvtrcli of intest, part unsp , w/o perf or abscess w/o bleed Office Visit 03/25/2020 10:00a [facility] M.D. C50.919 Malignant neoplasm [...] 10:00 am - Arlyn Adams M.D. at [facility] * 09/27/2020 9:00 am - Arlyn Adams M.D. at [facility] 03/25/2020 - Arlyn Adams M.D.* [...]
--- OUTSIDE RECORDS SUMMARY | 2020-07-30 07:43 | CCD | Continuity of Care Document ---
Author Author Zahra Adams M.D Organization Unknown Address [address] [facility] [address] [place] [address] Phone [phone] Care Team Providers Care Supervisor Doping Name Role Phone SushilaGeni serrano BUTADIENE CONVERTER UTILITY OPERATOR AUTM [phone] [facility] Hematology/Oncology AUTM [phone] Problems Active Problems Provider Date History of [...] mouth every day Arlyn Adams M.D. 03/22/2020 Ondansetron HCL 8mg Tablets take one tablet by mouth as needed as needed three times a day for nausea Arlyn Adams M.D. 03/19/2020 Vitamin D3 125mcg (5000 Ut) Capsul es 1 by mouth every day Cris Hickey FNP 03/19/2020 Excedrin Migraine [phone] Tab lets 2 q 6hrs prn po migraine Arlyn Adams M.D. 05/2020 Acetaminophen 500mg Tablets 2 by mouth every 8 hours as needed for pain Arlyn harmon M.D. 03/19/2020 Amoxicillin/Clavulanate Potassium 875-125mg Tablets 1 by mouth twice a day x 7days Unknown 03/19/2020 Metronidazole 500mg Tablets one by mouth q 8hrs Unknown 03/19/2020 Benadryl Allergy 25mg Tablets 1 po q6h prn rash Arlyn Adams M.D. 11/28/19 20 Multivitamin Adult Tablets 1 by mouth every day Phyl ALEX Moeller 09/18/2017 Gabapentin 300mg Capsules 1 PO QHS prn Nerve Pain Onc Arlyn Adams M.D. Dexamethasone 4mg Tablets 2 bid po day before day 1 and 2 chemotherapy Unknown Immunizations Description No Information Available Vital Signs Date Vital Result Comment 03/25/2020 9:48am BP Systolic 108 mmHg RT Arm BP Diastolic 70 mmHg RT Arm Heart Rate 116 /min Height 62.0 inches 5'2" Weight 169.12 lb O2 Saturation Level with Exercise 92 % RM Air BMI (Body Mass Index) 30.9 kg/m2 12/03/2019 8:36am BP Systolic 100 mmHg BP Diastolic 68 mmHg Heart Rate 86 /min Height 62.0 inches 5'2" Weight 175.00 lb BMI (Body Mass Index) 32.0 kg/m2 Results Test Acquired Date Facility Test Result H/L Range Note CBC With Differential 05/03/[address] [id number] [phone] White Blood Count 5.7 10 Normal 4.0-10.0 [...] 36.0-66.0 Lymph % 31.5 % Normal 24.0-44.0 [place] % 8.9 % High 0.0-5.0 Eos % 2.1 % Normal 0.0-3.0 Baso % 1.6 % High 0.0-1.0 Immature Granulocyte % 1.1 % Normal 0-3.0 Nucleated Red Blood Cell % 0.0 % Normal 0-0 Neutrophils # 3.1 10 Normal 1.5-8.5 Lymph # 1.8 10 Normal 1.5-5.0 [place] # 0.5 10 Normal 0.0-0.8 Eos # 0.1 10 Normal 0.0-0.5 Baso # 0.1 10 Normal 0.0-0.2 Comprehensive Metabolic Profil 05/03/2020 [address] [place], [place] [id number] [phone] Glucose, Fasting 120 mg/dL High 70-100 Blood Urea Nitrogen 16 mg/dL Normal 7-18 Creatinine For GFR 0.72 mg/dL Normal 0.55-1.30 Glomerular Filtration Rate > 60.0 Normal >51 1 Sodium Level 139 mEq/L Normal 136-145 Potassium [...] 0.8 Low 1.2-2.2 Coronavirus 2019 Nasopharygeal 04/22/2020 [address] [place], [place] [id number] [phone] Coronavirus 2019 Nasopharygeal This nucleic aci <SEE N OTE> 2 CBC With Differential 04/05/2020 [address] [place] [address] [phone] White Blood Count 5.4 10 Normal 4.0-10.0 [...] 36.0-66.0 Lymph % 12.1 % Low 24.0-44.0 [place] % 2.2 % Normal 0.0-5.0 Eos % 0.0 % Normal 0.0-3.0 Baso % 0.4 % Normal 0.0-1.0 Immature Granulocyte % 0.9 % Normal 0-3.0 Nucleated Red Blood Cell % 0.0 % Normal 0-0 Neutrophils # 4.5 10 Normal 1.5-8.5 Lymph # 0.7 10 Low 1.5-5.0 [place] # 0.1 10 Normal 0.0-0.8 Eos # 0.0 10 Normal 0.0-0.5 Baso # 0.0 10 Normal 0.0-0.2 Comprehensive Metabolic Profil 04/05/[address] [address] [phone] Glucose, Fasting 137 mg/dL High 70-100 Blood Urea Nitrogen 16 mg/dL Normal 7-18 Creatinine For GFR 0.70 mg/dL Normal 0.55-1.30 Glomerular Filtration Rate > 60.0 Normal >51 3 Sodium Level 139 mEq/L Normal 136-145 Potassium [...] 0.8 Low 1.2-2.2 CBC With Differential 03/29/[address] [address] [phone] White Blood Count 8.4 10 Normal 4.0-10.0 [...] 36.0-66.0 Lymph % 20.9 % Low 24.0-44.0 [place] % 10.2 % High 0.0-5.0 Eos % 0.8 % Normal 0.0-3.0 Baso % 1.1 % High 0.0-1.0 Immature Granulocyte % 2.5 % Normal 0-3.0 Nucleated Red Blood Cell % 0.0 % Normal 0-0 Neutrophils # 5.4 10 Normal 1.5-8.5 Lymph # 1.8 10 Normal 1.5-5.0 [place] # 0.9 10 High 0.0-0.8 Eos # 0.1 10 Normal 0.0-0.5 Baso # 0.1 10 Normal 0.0-0.2 Comprehensive Metabolic Profil 03/29/[address] [address] [phone] Glucose, Fasting 104 mg/dL High 70-100 Blood [...] 0.7 Low 1.2-2.2 Complete Blood Count 03/25/2020 [facility] Barge Pilot: Dr William Quiroga [place], [place] [id number] [phone] WBC 12.6 x10*3/UL High 4.1 - 10.9 RBC 4.48 x10*6/UL 4.20 - 6.30 Hemoglobin 12.5 g/dL 12.0 - 18.0 Hematocrit 36.6 % Low 37.0 - 51.0 MCV 81.7 fL 80.0 - 97.0 MCH 28.1 pg 26.0 - 32.0 MCHC 34.3 g/dL 31.0 - 38.0 RDW 15.0 % High 11.6 - 13.7 PLT 678 x10*3/UL High 140 - 440 5 MPV 8.4 FL 7.8 - 11.0 Lymph % 13.6 % 10.0 - 58.5 Mid % 5.1 % 1.7 - 9.3 Neut % 81.3 % 37.0 - 92.0 Lymph # 1.7 x10*3/UL 0.6 - 4.1 Mid # 0.6 x10*3/UL 0.1 - 0.6 Neut # 10.3 x10*3/UL High 2.0 - 7.8 Laboratory test finding 03/25/2020 [facility] Barge Pilot: Dr William Quiroga [place] [id number] [phone] Magnesium 2.2 mg/dL 1.8 - 2.4 Basic Metabolic Panel 03/25/2020 [facility]ge Pilot: [place] [address] [phone] Glucose 100 mg/dL High 74 - 99 6 BUN 16 mg/dL 7 - 18 Creatinine 0.6 mg/dL 0.6 - 1.3 Sodium 140 mEq/L 136 - 145 Potassium 4.7 mEq/L 3.5 - 5.1 Chloride 103 mEq/L 98 - 107 Carbon Dioxide 26 mEq/L 21 - 32 Calcium 9.1 mg/dL 8.5 - 10.1 GFR >= 60 mL/min >60 GFR >= 60 mL/min >60 7 Laboratory test finding 03/11/2020 [place] [id number] [phone] Lipase 57 U/L Low 73-393 Basic Metabolic Profile 03/11/2020 [place] [id number] [phone] Glucose, Fasting 113 mg/dL High 70-100 Blood Urea Nitrogen 12 mg/dL Normal 7-18 Creatinine For GFR 0.61 mg/dL Normal 0.55-1.30 Glomerular Filtration Rate > 60.0 Normal >51 8 Sodium Level 139 mEq/L Normal 136-145 Potassium Serum 3.5 mEq/L Normal 3.5-5.1 Chloride Level 103 mEq/L Normal 98-107 Carbon Dioxide Level 28 mEq/L Normal 21-32 Anion Gap 8 mEq/L Normal 8-16 Calcium Level 8.9 mg/dL Normal 8.5-10.1 Liver Profile 03/11/2020 [facility] nter [address] [place] [address] [phone] Ast/Sgot 9 U/L Normal 7-37 Alt/SGPT 23 U/L Normal 12-78 Alkaline Phosphatase 68 U/L Normal 45-117 Bilirubin,Total 0.6 mg/dL Normal 0.2-1.0 Bilirubin,Direct 0.1 mg/dL Normal 0.0-0.2 Total Protein 6.8 GM/DL Normal 6.4-8.2 Albumin 3.1 GM/DL Low 3.2-5.2 Albumin/Globulin Ratio 0.8 Low 1.2-2.2 Cardiac Marker Panel 03/11/2020 [facility] enter [address] [id number] [phone] CPK Creatine Phosphokinase 34 U/L Normal 26-19 2 CK-MB Value Mass < 1.0 NG/ML Normal <3.6 MB/CK Relative Index 2.94 Normal < Or =4 9 Troponin I < 0.02 NG/ML Normal < 0.10 10 Laboratory test finding 03/11/2020 [facility] [address] [place] [phone] Lactic Acid Sepsis Protocol 1.4 mmol/L Normal 0.4- 2.0 11 Laboratory test finding 03/11/[address] [address] [phone] Platelet Estimate NORMAL Normal Normal Differential 03/11/2020 [facility] nter [address] [place] [address] [phone] Neutrophils 96 % High 28-66 Lymphocytes 4 % Low 16-44 Anisocytosis 1+ Normal CBC With Differential 03/11/[address] [address] [phone] White Blood Count 12.8 10 High 4.0-10.0 [...] 0.0 % Normal 0-0 Prothrombin Time/Inr 03/11/2020 [facility] [address] [place] [address] [phone] Prothrombin Time 16.8 seconds High 11.8-14.0 Inr 1.33 Normal 12 CBC With Differential 03/08/[address] [address] [phone] White Blood Count 19.9 10 High 4.0-10.0 [...] 36.0-66.0 Lymph % 7.3 % Low 24.0-44.0 [place] % 4.3 % Normal 0.0-5.0 Eos % 0.0 % Normal 0.0-3.0 Baso % 0.2 % Normal 0.0-1.0 Immature Granulocyte % 1.9 % Normal 0-3.0 Nucleated Red Blood Cell % 0.0 % Normal 0-0 Neutrophils # 17.2 10 High 1.5-8.5 Lymph # 1.5 10 Normal 1.5-5.0 [place] # 0.9 10 High 0.0-0.8 Eos # 0.0 10 Normal 0.0-0.5 Baso # 0.0 10 Normal 0.0-0.2 Comprehensive Metabolic Profil 03/08/[address] [address] [phone] Glucose, Fasting 252 mg/dL High 70-100 Blood Urea Nitrogen 16 mg/dL Normal 7-18 Creatinine For GFR 0.76 mg/dL Normal 0.55-1.30 Glomerular Filtration Rate > 60.0 Normal >51 1 3 Sodium Level 139 mEq/L Normal 136-145 Potassium [...] 0.9 Low 1.2-2.2 CBC With Differential 02/16/[address] [address] [phone] White Blood Count 16.7 10 High 4.0-10.0 [...] 36.0-66.0 Lymph % 7.3 % Low 24.0-44.0 [place] % 3.5 % Normal 0.0-5.0 Eos % 0.0 % Normal 0.0-3.0 Baso % 0.1 % Normal 0.0-1.0 Immature Granulocyte % 1.1 % Normal 0-3.0 Nucleated Red Blood Cell % 0.0 % Normal 0-0 Neutrophils # 14.7 10 High 1.5-8.5 Lymph # 1.2 10 Low 1.5-5.0 [place] # 0.6 10 Normal 0.0-0.8 Eos # 0.0 10 Normal 0.0-0.5 Baso # 0.0 10 Normal 0.0-0.2 Comprehensive Metabolic Profil 02/16/[address] [address] [phone] Glucose, Fasting 197 mg/dL High 70-100 Blood [...] 1.1 Low 1.2-2.2 CBC With Differential 02/11/[address] [address] [phone] White Blood Count 5.9 10 Normal 4.0-10.0 [...] 36.0-66.0 Lymph % 38.6 % Normal 24.0-44.0 [place] % 7.5 % High 0.0-5.0 Eos % 3.6 % High 0.0-3.0 Baso % 0.9 % Normal 0.0-1.0 Immature Granulocyte % 1.0 % Normal 0-3.0 Nucleated Red Blood Cell % 0.0 % Normal 0-0 Neutrophils # 2.8 10 Normal 1.5-8.5 Lymph # 2.3 10 Normal 1.5-5.0 [place] # 0.4 10 Normal 0.0-0.8 Eos # 0.2 10 Normal 0.0-0.5 Baso # 0.1 10 Normal 0.0-0.2 Comprehensive Metabolic Profil 01/07/2020 [facility] [address] [place] [address] [phone] Glucose, Fasting 90 mg/dL Normal 70-100 Blood Urea Nitrogen 17 mg/dL Normal 7-18 Creatinine For GFR 0.67 mg/dL Normal 0.55-1.30 Glomerular Filtration Rate > 60.0 Normal >51 1 5 Sodium Level 141 mEq/L Normal 136-145 Potassium [...] Normal 3.2-5.2 Albumin/Globulin Ratio 1.0 Low 1.2-2.2 PT & Aptt 01/07/2020 [facility] nter [address] [place] [address] [phone] Prothrombin Time 12.7 seconds Normal 11.8-14.0 Inr 0.98 Normal 16 Partial Thromboplastin Time 32.3 seconds Normal 25.0-38.4 CBC With Differential 01/07/2020 [facility] [address] [place] [address] [phone] White Blood Count 7.5 10 Normal 4.0-10.0 [...] 36.0-66.0 Lymph % 33.3 % Normal 24.0-44.0 [place] % 7.9 % High 0.0-5.0 Eos % 3.5 % High 0.0-3.0 Baso % 1.1 % High 0.0-1.0 Immature Granulocyte % 1.3 % Normal 0-3.0 Nucleated Red Blood Cell % 0.0 % Normal 0-0 Neutrophils # 4.0 10 Normal 1.5-8.5 Lymph # 2.5 10 Normal 1.5-5.0 [place] # 0.6 10 Normal 0.0-0.8 Eos # 0.3 10 Normal 0.0-0.5 Baso # 0.1 10 Normal 0.0-0.2 CBC With Differential 11/21/2019 [place] [address] [phone] White Blood Count 13.4 10 High 4.0-10.0 Red Blood Count 4.03 10 Normal 4.00-5.40 Hemoglobin 12.1 g/dL Normal 12.0-15.5 Hematocrit 36.5 % Normal 36.0-47.0 Mean Corpuscular Volume 90.6 fl Normal 80.0-96.0 Mean Corpuscular Hemoglobin 30.0 pg Normal 27.0-33.0 Mean Corpuscular HGB Conc 33.2 g/dL Normal 32.0-36.5 Red Cell Distribution Width 13.0 % Normal 11.5-14.5 Platelet Count, Automated 254 10 Normal 150-450 Neutrophils % 71.3 % High 36.0-66.0 Lymph % 18.9 % Low 24.0-44.0 [place] % 9.2 % High 0.0-5.0 Eos % 0.1 % Normal 0.0-3.0 Baso % 0.1 % Normal 0.0-1.0 Immature Granulocyte % 0.4 % Normal 0-3.0 Nucleated Red Blood Cell % 0.0 % Normal 0-0 Neutrophils # 9.6 10 High 1.5-8.5 Lymph # 2.5 10 Normal 1.5-5.0 [place] # 1.2 10 High 0.0-0.8 Eos # 0.0 10 Normal 0.0-0.5 Baso # 0.0 10 Normal 0.0-0.2 Lipid Panel 11/21/2019 [facility] nter [address] [place] [address] [phone] Triglycerides Level 158 mg/dL High <150 Cholesterol Level 192 mg/dL Normal <200 HDL Cholesterol 62 mg/dL Normal >40 LDL Cholesterol 98 mg/dL Normal <100 Non-HDL-C 130 mg/dL Normal Cholesterol Risk Ratio 3.096 Normal <5 Basic Metabolic Profile 11/21/2019 [facility] [address] [place] [address] [phone] Glucose, Fasting 116 mg/dL High 70-100 Blood Urea Nitrogen 10 mg/dL Normal 7-18 Creatinine For GFR 0.73 mg/dL Normal 0.55-1.30 Glomerular Filtration Rate > 60.0 Normal >51 1 7 Sodium Level 142 mEq/L Normal 136-145 Potassium Serum 3.7 mEq/L Normal 3.5-5.1 Chloride Level 108 mEq/L High 98-107 Carbon Dioxide Level 26 mEq/L Normal 21-32 Anion Gap 8 mEq/L Normal 8-16 Calcium Level 8.1 mg/dL Low 8.5-10.1 Laboratory test finding 11/21/2019 [address] [place] [address] [phone] Thyroid Stimulating Hormone 0.879 uIU/ML Normal 0. 358-3.740 Complete Blood Count 11/20/2019 [facility] enter [address] [place] [address] [phone] White Blood Count 13.6 10 High 4.0-10.0 Red Blood Count 4.40 10 Normal 4.00-5.40 Hemoglobin 13.1 g/dL Normal 12.0-15.5 Hematocrit 39.8 % Normal 36.0-47.0 Mean Corpuscular Volume 90.5 fl Normal 80.0-96.0 Mean Corpuscular Hemoglobin 29.8 pg Normal 27.0-33.0 Mean Corpuscular HGB Conc 32.9 g/dL Normal 32.0-36.5 Red Cell Distribution Width 12.7 % Normal 11.5-14.5 Platelet Count, Automated 259 10 Normal 150-450 Nucleated Red Blood Cell % 0.0 % Normal 0-0 Basic Metabolic Profile 11/20/2019 [facility] [address] [place] [address] [phone] Glucose, Fasting 162 mg/dL High 70-100 Blood Urea Nitrogen 13 mg/dL Normal 7-18 Creatinine For GFR 0.83 mg/dL Normal 0.55-1.30 Glomerular Filtration Rate > 60.0 Normal >51 1 8 Sodium Level 139 mEq/L Normal 136-145 Potassium Serum 4.0 mEq/L Normal 3.5-5.1 Chloride Level 104 mEq/L Normal 98-107 Carbon Dioxide Level 27 mEq/L Normal 21-32 Anion Gap 8 mEq/L Normal 8-16 Calcium Level 8.2 mg/dL Low 8.5-10.1 Hemoglobin A1c 11/20/2019 [facility] nter [address] [place] [address] [phone] Hemoglobin A1c 5.8 % Normal 19 Estimated Average Glucose 120 mg/dL High 60-110 Type & Screen -Incl Blood Type,[place],AB SC 11/20/[address] [address] [phone] Blood Type O POSITIVE Normal AB Screen (Indirect [place])Vis NEGATIVE Normal 1 Units are mL/min/1.73 m2 Chronic Kidney Disease Staging per NKF: Stage I & II GFR >=60 Normal to Mildly Decreased Stage III GFR 30-59 Moderately Decreased Stage IV GFR 15-29 Severely Decreased Stage V GFR <15 Very Little GFR Left ESRD GFR <15 on LEGAL LIBRARIAN 2 This nucleic acid amplificat ion test was developed and its performance characteristics determined by [facility]. Nucleic acid amplification tests include PCR and [...] detected) result in this assay. Performed at: - [facility] [id number] Barge Pilot: Julia Garcia MD, Phone: [phone] Not Detected 3 Units are mL/min/1.73 m2 Chronic Kidney Disease Staging per NKF: Stage I & II GFR >=60 Normal to Mildly Decreased Stage III GFR 30-59 Moderately Decreased Stage IV GFR 15-29 Severely Decreased Stage V GFR <15 Very Little GFR Left ESRD GFR <15 on LEGAL LIBRARIAN 4 Units are mL/min/1.73 m2 Chronic Kidney Disease Staging per NKF: Stage I & II GFR >=60 Normal to Mildly Decreased Stage III GFR 30-59 Moderately Decreased Stage IV GFR 15-29 Severely Decreased Stage V GFR <15 Very Little GFR Left ESRD GFR <15 on LEGAL LIBRARIAN 5 NOTE: RESULT VERIFIED. 6 100-125 mg/dL PRE-DIABET ES/FASTING >126 mg/dL DIABETES/FASTING 7 CHRONIC KIDNEY DISEASE STAGI NG PER NKF STAGE I & II GFR >= 60 NORMAL TO MILDLY DECREASED STAGE III GFR 30-59 MODERATELY DECREASED STAGE IV GFR 15-29 SEVERELY DECREASED STAGE V GFR <15 VERY LITTLE GFR LEFT ESRD GFR <15 ON LEGAL LIBRARIAN 8 Units are mL/min/1.73 m2 Chronic Kidney Disease Staging per NKF: Stage I & II GFR >=60 Normal to Mildly Decreased Stage III GFR 30-59 Moderately Decreased Stage IV GFR 15-29 Severely Decreased Stage V GFR <15 Very Little GFR Left ESRD GFR <15 on LEGAL LIBRARIAN 9 DIAGNOSIS CRITERIA MMB ng/ml Relative Index (RI) NON-AMI < or = 5 N/A LEE ZONE > 5 < or = 4 AMI > 5 > 4 10 Troponin I Reference Interva l for [place] LOCI: 99th Percentile= 0.00-0.045 ng/ml Risk Stratification: <= 0.10 ng/ml Decreased Risk for Adverse Clinical Events. 0.10-1.50 ng/ml Increased Risk for Adv erse Clinical Events. Evaluation of additional criterion and/or repeat testing in 2-6 hours is suggested to rule out myocardial damage. >= 1.50 ng/ml Indicative of Myocardial Injury. 11 Y/N query for Sepsis Lactate Rule: Y 12 THERAPUTIC HUMAN INR VALUES INDICATIONS NORMAL RANGES PROPHYLAXIS/TREATMENT OF: VENOUS THROMBOSIS 2.0-3.0 PULMONARY EMBOLISM 2.0-3.0 PREVENTION OF SYSTEMIC EMBOLISM FROM: TISSUE HEART VALVES 2.0-3.0 ACUTE MYOCARDIAL INFARCTION 2.0-3.0 VALVULAR HEART DISEASE 2.0-3.0 ATRIAL FIBRILLATION 2.0-3.0 MECHANICAL VALVES(HIGH RISK) 2.5-3.5 RECURRENT MYOCARDIAL INFARCTION 2.5-3.5 13 Units are mL/min/1.73 m2 Chronic Kidney Disease Staging per NKF: Stage I & II GFR >=60 Normal to Mildly Decreased Stage III GFR 30-59 Moderately Decreased Stage IV GFR 15-29 Severely Decreased Stage V GFR <15 Very Little GFR Left ESRD GFR <15 on LEGAL LIBRARIAN 14 Units are mL/min/1.73 m2 Chronic Kidney Disease Staging per NKF: Stage I & II GFR >=60 Normal to Mildly Decreased Stage III GFR 30-59 Moderately Decreased Stage IV GFR 15-29 Severely Decreased Stage V GFR <15 Very Little GFR Left ESRD GFR <15 on LEGAL LIBRARIAN 15 Units are mL/min/1.73 m2 Chronic Kidney Disease Staging per NKF: Stage I & II GFR >=60 Normal to Mildly Decreased Stage III GFR 30-59 Moderately Decreased Stage IV GFR 15-29 Severely Decreased Stage V GFR <15 Very Little GFR Left ESRD GFR <15 on LEGAL LIBRARIAN 16 THERAPUTIC HUMAN INR VALUES INDICATIONS NORMAL [...] Little GFR Left ESRD GFR <15 on LEGAL LIBRARIAN 18 Units are mL/min/1.73 m2 Chronic Kidney Disease Staging per NKF: Stage I & II GFR >=60 Normal to Mildly Decreased Stage III GFR 30-59 Moderately Decreased Stage IV GFR 15-29 Severely Decreased Stage V GFR <15 Very Little GFR Left ESRD GFR <15 on LEGAL LIBRARIAN 19 REFERENCE RANGES: 4.5-5.6% NORMAL 5.7-6.4% SUGGESTS IMPAIRED GLUCOSE META BOLISM >= 6.5% ABNORMAL Procedures Date Code Description Status 10/09/2019 [id number] Mammogram Completed 09/23/2019 [id number] Mammogram Completed 09/16/2019 [id number] Mammogram Completed 10/02/2017 [id number] Diabetic Retinal Eye Exam Comple [email or web address] Description No Information Available Encounters Type Date Location Provider Dx Diagnosis [facility] C50.919 Malignant neoplasm [...] Z13.89 Encounter for screening for other disorder Office Visit 12/03/2019 8[facility]a [facility] C50.919 Malignant neoplasm of unsp s ite of unspecified female breast L30.9 Dermatitis, unspecified R73.03 Prediabetes E78.00 Pure hypercholesterolemia, u nspecified G47.33 Obstructive sleep apnea (surjit lt) (pediatric) M19.90 Unspecified osteoarthritis, unspecified site N20.0 Calculus of kidney Assessments Date Code Description Provider 03/25/2020 C50.919 Malignant neoplasm o f unspecified [...] for othe r disorder Arlyn Adams M.D. 12/03/2019 C50.919 Malignant neoplasm o f unspecified site of unspecified female breast Arlyn Adams M.D. 12/03/2019 L30.9 Dermatitis, unspecified Arlyn Adams M.D. 12/03/2019 R73.03 Prediabetes Arlyn jameson M.D. 12/03/2019 E78.00 Pure hypercholesterolemia, unspe cified Arlyn Adams M.D. 12/03/2019 G47.33 Obstructive sleep apnea (adult) (pediatric) Arlyn Adams M.D. 12/03/2019 M19.90 Unspecified osteoarthritis, unsp ecified site Arlyn Adams M.D. 12/03/2019 N20.0 Calculus of kidney Arlyn smith M.D. Plan of Treatment Future Appointment(s):* 06/24/2020 10:00 am - Arlyn Adams M.D. at [facility], .. 03/25/2020 - Arlyn Adams M.D.* C50.919 Malignant [...]
--- OUTSIDE RECORDS SUMMARY | 2020-07-30 07:43 | CCD ---
Author Author [facility] Organization [facility] Address Unknown Phone Unavailable Care Team Providers Care Adjunct Art History Instructor Name Role Phone Jory Ramachandran Unavailable PROBLEMS Type Condition ICD9-CM Code AWS38-VJ Code Onset Dates Condition S tatus SNOMED Code Notes Problem Vertigo 780.4 Active 288172195 Problem Symptomatic menopausal or female climacteric states N95.1 Active 31938355 Problem Abnormal mammogram R92.8 Active 494624048 Problem Infiltrating ductal carcinoma of right breast C50. 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 7132043322164696 Problem Malignant neoplasm of unspecified site of left female breast C50.912 Active 911298817 ALLERGIES Allergen (clinical drug ingredient) Drug/Non Drug Allergy do cumented on EMR Reaction Allergy Type Onset Date Status cephalexin Cephalexin(NDC Code:[address]-17) Rash Drug Allergy Active Iodine(NDC Code:01792-02143) Unknown Drug Allergy Active Allopurinol swelling/rash Drug Allergy Active x-ray dye Anaphylaxis Non Drug Allergy Active ENCOUNTERS from 1969 to 2020-06-12 Encounter Location Date Provider Diagnosis [facility] [address] [place] [address] Jan, Jory Ramachandran Ductal carcinoma in situ (DCIS) of left breast D05.12 ; Infiltrating ductal carcinoma of right breast C50.911 ; Seroma of breast N64.89 ; Estrogen receptor positive status [ER+] Z17.0 ; Genetic screening Z13.79 and Aftercare following surgery for neoplasm Z48.3 IMMUNIZATIONS No Information SOCIAL HISTORY Tobacco Use: Social History Observation Description Date Details (start date - stop date) Never Smoker Sex Assigned At : Social History Observation Description Sex Assigned At Unknown Education: Question Answer Notes Level of Education: College Language: Question Answer Notes Languages spoken: Paraguayan Confucianist: Question Answer Notes Confucianist 08 Amish Alcohol Screening: Question Answer Notes Did you [...] FOR REFERRAL No Information VITAL SIGNS Weight 177 lbs Jan, Height 61.75 in Jan, BMI 32.63 kg/m2 Jan, Heart Rate 74 /min Jan, Respiratory Rate 18 /min Jan, Temperature 97.3 degrees Fahrenheit Jan, Oximetry 98 Jan, Blood pressure systolic 110 mm Hg Jan, Blood pressure diastolic 80 mm Hg Jan, MEDICATIONS Medication SIG (Take, Route, Frequency, Duration) Notes Start Da te End Date Status Cephalexin 500 MG 1 capsule Orally every 12 hrs for 10 day(s) Not-Taking Sulfamethoxazole-Trimethoprim 800-160 MG 1 tablet Oral ly Twice a day for 14 day(s) Dec, Not-Taking Multivitamins 1 Orally occ./5 x a wk. or so Active Amoxicillin 500 MG 1 capsule Orally every 12 hrs for 10 day(s) Dec, Not-Taking Lidocaine-Prilocaine 2.5-2.5 % Apply generously to eac h nipple & surrounding breast 2 hours before coming to hospital. Cover with plastic wrap. Externally once for 1 day Not-Taking Vitamin D-3 5000 1 capsule Orally Once a day Active PROCEDURES No Information RESULTS No Results REASON FOR VISIT 1 MONTH follow up MEDICAL (GENERAL) HISTORY Type Description Date Medical History SVT-echo and stress test done-2008 carda ic ablation x 2 Medical History Hiatal hernia Medical History sleep apnea Medical History allergies Medical History abnormal mammogram-2006 -cat. 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 Hospitalization History surgery related Hospitalization History Heart catheterization and ablasion 2 December Goals Section No Information Health Concerns No Information MEDICAL EQUIPMENT No Information MENTAL STATUS No Information FUNCTIONAL STATUS No Information ASSESSMENTS Encounter Date Diagnosis Assessment Notes Treatment Notes Treatm ent Clinical Notes Jan, Ductal carcinoma in situ (DCIS) of left breast ( ICD-10 - D05.12) Jan, Infiltrating ductal carcinoma of right breast (I CD-10 - C50.911) Jan, Seroma of breast (ICD-10 - N64.89) Jan, Estrogen receptor positive status [ER+] (ICD-10 - Z17.0) Jan, Genetic screening (ICD-10 - Z13.79) negative for Clinically significant mutations. 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 pN0 (0/2) cM0 STAGE 0 s/p b/l SSM w. TE placement and b/l SLNBx 11/24/2019 s/p b/l seroma drainage 12/23/19 s/p R TE removal 12/29/19 to infection MARGINS: BOTH MASTECTOMY MARINS NEGATIVE NO LVI ONCOTYPE DX for R CA : 19 Ms. Arellano recovered well from her Right mastectomy site infection requiring TE removal. She is following with Dr Ramos tomorrow. She will need delayed reconstruction in the future. She had Port-a-Cath placement in 2 days and will be starting chemotherapy shortly after since her Oncotype Dx score was 19. I will see her back in the office in May for the 6 month postop appointment. All questions were answered. Patient agrees with the plan. 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
--- OUTSIDE RECORDS SUMMARY | 2020-07-30 07:43 | CCD | Continuity of Care Document ---
Author Author Zahra Adams M.D Organization Unknown Address [address] [facility] [address] [place] [address] Phone [phone] Care Team Providers Care Industrial Conveyor Belt Repairer Name Role Phone SushilaGeni serrano MIDWIFE AUTM [phone] [facility] Hematology/Oncology AUTM [phone] Problems Active Problems Provider Date History of [...] day Cris Hickey FNP 03/19/2020 Excedrin Migraine [phone] Tab lets 2 q 6hrs prn po [...] H/L Range Note CBC With Differential 05/24/[address] [id number] [phone] White Blood Count 6.9 10 Normal 4.0-10.0 [...] 36.0-66.0 Lymph % 26.9 % Normal 24.0-44.0 [place] % 10.1 % High 0.0-5.0 Eos % 0.3 % Normal 0.0-3.0 Baso % 0.9 % Normal 0.0-1.0 Immature Granulocyte % 1.7 % Normal 0-3.0 Nucleated Red Blood Cell % 0.0 % Normal 0-0 Neutrophils # 4.2 10 Normal 1.5-8.5 Lymph # 1.9 10 Normal 1.5-5.0 [place] # 0.7 10 Normal 0.0-0.8 Eos # 0.0 10 Normal 0.0-0.5 Baso # 0.1 10 Normal 0.0-0.2 Comprehensive Metabolic Profil 05/24/[address] [address] [phone] Glucose, Fasting 94 mg/dL Normal 70-100 Blood [...] 1.0 Low 1.2-2.2 CBC With Differential 05/03/[address] [address] [phone] White Blood Count 5.7 10 Normal 4.0-10.0 [...] 36.0-66.0 Lymph % 31.5 % Normal 24.0-44.0 [place] % 8.9 % High 0.0-5.0 Eos % 2.1 % Normal 0.0-3.0 Baso % 1.6 % High 0.0-1.0 Immature Granulocyte % 1.1 % Normal 0-3.0 Nucleated Red Blood Cell % 0.0 % Normal 0-0 Neutrophils # 3.1 10 Normal 1.5-8.5 Lymph # 1.8 10 Normal 1.5-5.0 [place] # 0.5 10 Normal 0.0-0.8 Eos # 0.1 10 Normal 0.0-0.5 Baso # 0.1 10 Normal 0.0-0.2 Comprehensive Metabolic Profil 05/03/2020 [place] [id number] [phone] Glucose, Fasting 120 mg/dL High 70-100 Blood [...] 0.8 Low 1.2-2.2 Coronavirus 2019 Nasopharygeal 04/22/2020 [place] [id number] [phone] Coronavirus 2019 Nasopharygeal This nucleic aci <SEE N OTE> 3 CBC With Differential 04/05/[address] [address] [phone] White Blood Count 5.4 10 Normal 4.0-10.0 [...] 36.0-66.0 Lymph % 12.1 % Low 24.0-44.0 [place] % 2.2 % Normal 0.0-5.0 Eos % 0.0 % Normal 0.0-3.0 Baso % 0.4 % Normal 0.0-1.0 Immature Granulocyte % 0.9 % Normal 0-3.0 Nucleated Red Blood Cell % 0.0 % Normal 0-0 Neutrophils # 4.5 10 Normal 1.5-8.5 Lymph # 0.7 10 Low 1.5-5.0 [place] # 0.1 10 Normal 0.0-0.8 Eos # 0.0 10 Normal 0.0-0.5 Baso # 0.0 10 Normal 0.0-0.2 Comprehensive Metabolic Profil 04/05/[address] [address] [phone] Glucose, Fasting 137 mg/dL High 70-100 Blood [...] 0.8 Low 1.2-2.2 CBC With Differential 03/29/2020 [place] 6290101 [phone] White Blood Count 8.4 10 Normal 4.0-10.0 [...] 36.0-66.0 Lymph % 20.9 % Low 24.0-44.0 [place] % 10.2 % High 0.0-5.0 Eos % 0.8 % Normal 0.0-3.0 Baso % 1.1 % High 0.0-1.0 Immature Granulocyte % 2.5 % Normal 0-3.0 Nucleated Red Blood Cell % 0.0 % Normal 0-0 Neutrophils # 5.4 10 Normal 1.5-8.5 Lymph # 1.8 10 Normal 1.5-5.0 [place] # 0.9 10 High 0.0-0.8 Eos # 0.1 10 Normal 0.0-0.5 Baso # 0.1 10 Normal 0.0-0.2 Comprehensive Metabolic Profil 03/29/2020 [facility] [address] [place] [address] [phone] Glucose, Fasting 104 mg/dL High 70-100 Blood [...] 0.7 Low 1.2-2.2 Complete Blood Count 03/25/2020 [employer] [facility] Real Estate Recruiter: [place] [address] [phone] WBC 12.6 x10*3/UL High 4.1 - 10.9 [...] 2.0 - 7.8 Laboratory test finding 03/25/2020 [facility] Real Estate Recruiter: Dr William Quiroga [place], [place] [id number] [phone] Magnesium 2.2 mg/dL 1.8 - 2.4 Basic Metabolic Panel 03/25/2020 [facility] Real Estate Recruiter: Dr William Quiroga [place], [place] [id number] [phone] Glucose 100 mg/dL High 74 - 99 [...] mL/min >60 8 Laboratory test finding 03/11/[address] [id number] [phone] Lipase 57 U/L Low 73-393 Basic Metabolic Profile 03/11/[address] [address] [phone] Glucose, Fasting 113 mg/dL High 70-100 Blood [...] 8.9 mg/dL Normal 8.5-10.1 Liver Profile 03/11/2020 [facility] nter [address] [place] [id number] [phone] Ast/Sgot 9 U/L Normal 7-37 Alt/SGPT 23 U/L Normal 12-78 Alkaline Phosphatase 68 U/L Normal 45-117 Bilirubin,Total 0.6 mg/dL Normal 0.2-1.0 Bilirubin,Direct 0.1 mg/dL Normal 0.0-0.2 Total Protein 6.8 GM/DL Normal 6.4-8.2 Albumin 3.1 GM/DL Low 3.2-5.2 Albumin/Globulin Ratio 0.8 Low 1.2-2.2 Cardiac Marker Panel 03/11/2020 [facility] enter [address] [place] [address] [phone] CPK Creatine Phosphokinase 34 U/L Normal 26-19 2 CK-MB Value Mass < 1.0 NG/ML Normal <3.6 MB/CK Relative Index 2.94 Normal < Or =4 10 Troponin I < 0.02 NG/ML Normal < 0.10 11 Laboratory test finding 03/11/2020 [facility] [address] [place] [address] [phone] Lactic Acid Sepsis Protocol 1.4 mmol/L Normal 0.4- 2.0 12 Laboratory test finding 03/11/[address] [address] [phone] Platelet Estimate NORMAL Normal Normal Differential 03/11/2020 [facility] nter [address] [place] [address] [phone] Neutrophils 96 % High 28-66 Lymphocytes 4 % Low 16-44 Anisocytosis 1+ Normal CBC With Differential 03/11/2020 [facility] [address] [place] [address] [phone] White Blood Count 12.8 10 High 4.0-10.0 [...] 0.0 % Normal 0-0 Prothrombin Time/Inr 03/11/2020 [facility] enter [address] [place] [address] [phone] Prothrombin Time 16.8 seconds High 11.8-14.0 Inr 1.33 Normal 13 CBC With Differential 03/08/2020 [facility] [address] [place] [address] [phone] White Blood Count 19.9 10 High 4.0-10.0 [...] 36.0-66.0 Lymph % 7.3 % Low 24.0-44.0 [place] % 4.3 % Normal 0.0-5.0 Eos % 0.0 % Normal 0.0-3.0 Baso % 0.2 % Normal 0.0-1.0 Immature Granulocyte % 1.9 % Normal 0-3.0 Nucleated Red Blood Cell % 0.0 % Normal 0-0 Neutrophils # 17.2 10 High 1.5-8.5 Lymph # 1.5 10 Normal 1.5-5.0 [place] # 0.9 10 High 0.0-0.8 Eos # 0.0 10 Normal 0.0-0.5 Baso # 0.0 10 Normal 0.0-0.2 Comprehensive Metabolic Profil 03/08/2020 [facility] [address] [place] [address] [phone] Glucose, Fasting 252 mg/dL High 70-100 Blood [...] 0.9 Low 1.2-2.2 CBC With Differential 02/16/[address] [address] [phone] White Blood Count 16.7 10 High 4.0-10.0 [...] 36.0-66.0 Lymph % 7.3 % Low 24.0-44.0 [place] % 3.5 % Normal 0.0-5.0 Eos % 0.0 % Normal 0.0-3.0 Baso % 0.1 % Normal 0.0-1.0 Immature Granulocyte % 1.1 % Normal 0-3.0 Nucleated Red Blood Cell % 0.0 % Normal 0-0 Neutrophils # 14.7 10 High 1.5-8.5 Lymph # 1.2 10 Low 1.5-5.0 [place] # 0.6 10 Normal 0.0-0.8 Eos # 0.0 10 Normal 0.0-0.5 Baso # 0.0 10 Normal 0.0-0.2 Comprehensive Metabolic Profil 02/16/2020 [place] [address] [place] [address] [phone] Glucose, Fasting 197 mg/dL High 70-100 Blood [...] 1.1 Low 1.2-2.2 CBC With Differential 02/11/[address] [address] [phone] White Blood Count 5.9 10 Normal 4.0-10.0 [...] 36.0-66.0 Lymph % 38.6 % Normal 24.0-44.0 [place] % 7.5 % High 0.0-5.0 Eos % 3.6 % High 0.0-3.0 Baso % 0.9 % Normal 0.0-1.0 Immature Granulocyte % 1.0 % Normal 0-3.0 Nucleated Red Blood Cell % 0.0 % Normal 0-0 Neutrophils # 2.8 10 Normal 1.5-8.5 Lymph # 2.3 10 Normal 1.5-5.0 [place] # 0.4 10 Normal 0.0-0.8 Eos # 0.2 10 Normal 0.0-0.5 Baso # 0.1 10 Normal 0.0-0.2 Comprehensive Metabolic Profil 02/11/2020 [place] [address] [place] [address] [phone] Glucose, Fasting 106 mg/dL High 70-100 Blood [...] 1.2 Normal 1.2-2.2 CBC With Differential 01/07/2020 [place] [address] [place] [address] [phone] White Blood Count 7.5 10 Normal 4.0-10.0 [...] 36.0-66.0 Lymph % 33.3 % Normal 24.0-44.0 [place] % 7.9 % High 0.0-5.0 Eos % 3.5 % High 0.0-3.0 Baso % 1.1 % High 0.0-1.0 Immature Granulocyte % 1.3 % Normal 0-3.0 Nucleated Red Blood Cell % 0.0 % Normal 0-0 Neutrophils # 4.0 10 Normal 1.5-8.5 Lymph # 2.5 10 Normal 1.5-5.0 [place] # 0.6 10 Normal 0.0-0.8 Eos # 0.3 10 Normal 0.0-0.5 Baso # 0.1 10 Normal 0.0-0.2 PT & Aptt 01/07/2020 [facility] nter [address] [place] [address] [phone] Prothrombin Time 12.7 seconds Normal 11.8-14.0 Inr 0.98 Normal 17 Partial Thromboplastin Time 32.3 seconds Normal 25.0-38.4 Comprehensive Metabolic Profil 01/07/2020 [facility] [address] [place] [address] [phone] Glucose, Fasting 90 mg/dL Normal 70-100 Blood [...] Little GFR Left ESRD GFR <15 on DESIGN PRINTER [employer]ALL[employer]ON 2 Units are mL/min/1.73 m2 Chronic Kidney Disease Staging per NKF: Stage I & II GFR >=60 Normal to Mildly Decreased Stage III GFR 30-59 Moderately Decreased Stage IV GFR 15-29 Severely Decreased Stage V GFR <15 Very Little GFR Left ESRD GFR <15 on DESIGN PRINTER BALLOON 3 This nucleic acid amplificat ion test was developed and its performance characteristics determined by [employer]. Nucleic acid amplification tests include PCR and [...] detected) result in this assay. Performed at: [facility] [employer] [id number] Real Estate Recruiter: Julia Garcia MD, Phone: [phone] Not Detected 4 Units are mL/min/1.73 m2 Chronic Kidney Disease Staging per NKF: Stage I & II GFR >=60 Normal to Mildly Decreased Stage III GFR 30-59 Moderately Decreased Stage IV GFR 15-29 Severely Decreased Stage V GFR <15 Very Little GFR Left ESRD GFR <15 on DESIGN PRINTER BALLOON 5 Units are mL/min/1.73 m2 Chronic Kidney Disease Staging per NKF: Stage I & II GFR >=60 Normal to Mildly Decreased Stage III GFR 30-59 Moderately Decreased Stage IV GFR 15-29 Severely Decreased Stage V GFR <15 Very Little GFR Left ESRD GFR <15 on DESIGN PRINTER BALLOON 6 NOTE: RESULT VERIFIED. 7 100-125 mg/dL PRE-DIABET ES/FASTING >126 mg/dL DIABETES/FASTING 8 CHRONIC KIDNEY DISEASE STAGI NG PER NKF STAGE I & II GFR >= 60 NORMAL TO MILDLY DECREASED STAGE III GFR 30-59 MODERATELY DECREASED STAGE IV GFR 15-29 SEVERELY DECREASED STAGE V GFR <15 VERY LITTLE GFR LEFT ESRD GFR <15 ON DESIGN PRINTER BALLOON 9 Units are mL/min/1.73 m2 Chronic Kidney Disease Staging per NKF: Stage I & II GFR >=60 Normal to Mildly Decreased Stage III GFR 30-59 Moderately Decreased Stage IV GFR 15-29 Severely Decreased Stage V GFR <15 Very Little GFR Left ESRD GFR <15 on DESIGN PRINTER BALLOON 10 DIAGNOSIS CRITERIA MMB ng/ml Relative Index (RI) NON-AMI < or = 5 N/A LEE ZONE > 5 < or = 4 AMI > 5 > 4 11 Troponin I Reference Interva l for Brighter Future Challenge LOCI: 99th Percentile= 0.00-0.045 ng/ml Risk Stratification: [...] Little GFR Left ESRD GFR <15 on DESIGN PRINTER BALLOON 15 Units are mL/min/1.73 m2 Chronic Kidney Disease Staging per NKF: Stage I & II GFR >=60 Normal to Mildly Decreased Stage III GFR 30-59 Moderately Decreased Stage IV GFR 15-29 Severely Decreased Stage V GFR <15 Very Little GFR Left ESRD GFR <15 on DESIGN PRINTER BALLOON 16 Units are mL/min/1.73 m2 Chronic Kidney Disease Staging per NKF: Stage I & II GFR >=60 Normal to Mildly Decreased Stage III GFR 30-59 Moderately Decreased Stage IV GFR 15-29 Severely Decreased Stage V GFR <15 Very Little GFR Left ESRD GFR <15 on DESIGN PRINTER BALLOON 17 THERAPUTIC HUMAN INR VALUES INDICATIONS NORMAL [...] Little GFR Left ESRD GFR <15 on DESIGN PRINTER BALL[employer] Procedures Date Code Description Status 10/09/2019 [id number] Mammogram Completed 09/23/2019 [id number] Mammogram Completed 09/16/2019 [id number] Mammogram Completed 10/02/2017 [id number] Diabetic Retinal Eye Exam Comple WiTricity Description No Information Available Encounters Type Date Location Provider Dx Diagnosis Office Visit 03/25/2020 10:[facility]a [facility] for other disorder Office Visit 12/03/2019 8:30a [facility] Gagan Adams M.D. C50.919 Malignant neoplasm of unsp [...] 10:00 am - Arlyn Adams M.D. at [facility] 03/25/2020 - Arlyn Adams M.D.* C50.919 [...]
--- OUTSIDE RECORDS SUMMARY | 2020-07-30 07:43 | CCD ---
Author Author [facility] Organization [facility] Address Unknown Phone Unavailable Care Team Providers Care Fuel Oil Clerk Name Role Phone Genaro Ramachandranzka Unavailable PROBLEMS Type Condition ICD9-CM Code JUI27-NE Code Onset Dates Condition S tatus SNOMED Code Notes Problem Vertigo 780.4 Active 692001431 Problem Symptomatic menopausal or female climacteric states N95.1 Active 70422833 Problem Abnormal mammogram R92.8 Active 913216611 Problem Infiltrating ductal carcinoma of right breast C50. 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 5643792094230917 Problem Malignant neoplasm of unspecified site of left female breast C50.912 Active 459579855 ALLERGIES Allergen (clinical drug ingredient) Drug/Non Drug Allergy do cumented on EMR Reaction Allergy Type Onset Date Status cephalexin Cephalexin(NDC Code:[address]-71) Rash Drug Allergy Active Iodine(NDC Code:39651-25848) Unknown Drug Allergy Active Allopurinol swelling/rash Drug Allergy Active x-ray dye Anaphylaxis Non Drug Allergy Active ENCOUNTERS from 1969 to 2020-06-12 Encounter Location Date Provider Diagnosis [facility] [address] [place] [id number] Mar, Jory Ramachandran Ductal carcinoma in situ (DCIS) of left breast D05.12 ; Infiltrating ductal carcinoma of right breast C50.911 ; Estrogen receptor positive status [ER+] Z17.0 ; Genetic screening Z13.79 and Continuous severe abdominal pain R10.9 IMMUNIZATIONS No Information SOCIAL HISTORY Tobacco Use: Social History Observation Description Date Details (start date - stop date) Never Smoker Sex Assigned At : Social History Observation Description Sex Assigned At Unknown Education: Question Answer Notes Level of Education: College Language: Question Answer Notes Languages spoken: Bulgarian Mandaeism: Question Answer Notes Mandaeism 08 Hinduism Alcohol Screening: Question Answer Notes Did you [...] Information RESULTS No Results REASON FOR VISIT No Information MEDICAL (GENERAL) HISTORY Type Description Date Medical [...] History bilateral mastectomy 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 Hospitalization History surgery related Hospitalization History Heart catheterization and ablasion 2 December Goals Section No Information Health Concerns No Information MEDICAL EQUIPMENT No Information MENTAL STATUS No Information FUNCTIONAL STATUS No Information ASSESSMENTS Encounter Date Diagnosis Assessment Notes Treatment Notes Treatm ent Clinical Notes Mar, Ductal carcinoma in situ (DCIS) of left breast ( ICD-10 - D05.12) RIGHT BREATS CANCERIDC GRADE 2-3ER 95% MA 1-2% HER2 [id number] (1.1cm on US) cN0 cM0 STAGE 1pT1c (1.3 cm) pN0(0/2) cM0 STAGE 1 LEFT BREAST CANCERDCIS GRADE 2-3ER 100% MA 5%cTi.s.(extending 5 cm ?) cN0 cM0 STAGE 0pTi.s. pN0 (0/2) cM0 STAGE 0 s/p b/l SSM w. TE placement and b/l SLNBx 11/24/2019 s/p b/l seroma drainage 12/23/19 s/p R TE removal 12/29/19 to infection MARGINS: BOTH MASTECTOMY MARINS NEGATIVE NO LVI ONCOTYPE DX for R CA : 19 Patient is currently following with [facility] for Chemo, last chemo as given 03/08/20. I called Dr Ramirez, patient's [facility] Dr, today and informed him that patient is tachycardic with severe abd pain and rebound and that I am sending her to the ER for evaluation. After acute cancer treatment is completed, patient will continue her follow up with Plastic surgery for reconstruction. I will continue seeing patient every 6 months. Our next scheduled meeting will be In June. However, I may see patient sooner if it is needed. All questions were answered. Patient agrees with the plan. Mar, Infiltrating ductal carcinoma of right breast (I CD-10 - C50.911) see above Mar, Estrogen receptor positive status [ER+] (ICD-10 - Z17.0) Mar, Genetic screening (ICD-10 - Z13.79) negative for Clinically significant mutations. 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 She is currently tachycardic and had rebound on exam. We called EMS to transport patient into ER for evaluation. I called ER informing them that I am sending Ms. Arellano. I also called Dr Ramirez, patient's [facility] Dr, and informed him about the situation. PLAN OF TREATMENT Treatment Notes Assessment Notes Clinical Notes Ductal carcinoma in situ (DCIS) of left breast RIGHT B REATS CANCERIDC GRADE 2- 3ER 95% MA 1-2% HER2 [id number] (1.1cm on US) cN0 cM0 STAGE 1pT1c (1.3 cm) pN0(0/2) cM0 STAGE 1LEFT BREAST CANCERDCIS GRADE 2-3ER 100% MA 5%cTi.s.(extending 5 cm ?) cN0 cM0 STAGE 0pTi.s. pN0 (0/2) cM0 STAGE 0s/p b/l SSM w. TE placement and b/l SLNBx 11/24/2019s/p b/l seroma drainage 12/23/19/p R TE removal 12/29/19 to infectionMARGINS: BOTH MASTECTOMY MARINS NEGATIVE NO LVI ONCOTYPE DX for R CA : 19Patient is currently following with [facility] for Chemo, lastchemo as given 03/08/20. I called Dr Ramirez, patient's [facility] Dr, today andinformed him that patient is tachycardic with severe abd pain and rebound andthat I am sending her to the ER for evaluation.After acute cancer treatment is completed, patient willcontinue her follow up with Plastic surgery for reconstruction.I will continue seeing patient every 6 months. Our nextscheduled meeting will be In June. However, I may see patient sooner if itis needed.All questions were answered. Patient agrees withthe plan. 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 She is currently tachycardic and had rebound on exam. We called EMS to transport patient into ER for evaluation. I called ER informing them that I am sending Ms. Arellano. I also called Dr Ramirez, patient's [facility] Dr, and informed him about the situation. Next Appt Details Provider Name:Jory Ramachandran, 27-06-18 08:00:00 AM, [address] [place] [address], [id number], Provider Name:Alayna Foote, 2020-09-16 10:00:00 AM, [address] [place] [address], [id number], Insurance Providers Payer Name Payer Address Payer Phone Insured Name Patient Relati onship to Insured Coverage Start Date Coverage End Date [id number] [facility] [place] [address] FRANKIE ARELLANO self
--- OUTSIDE RECORDS SUMMARY | 2020-07-30 07:43 | CCD | Continuity of Care Document ---
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 05/2020 Acetaminophen 500mg Tablets 2 by mouth every 8 hours as needed for pain Arlyn harmon M.D. 03/19/2020 Benadryl Allergy 25mg Tablets 1 po q6h prn rash Alryn Adams M.D. 11/28/19 20 Multivitamin Adult Tablets 1 by mouth every day ALEX Persaud 09/18/2017 Gabapentin 300mg Capsules 1 PO QHS [...] Height 62.0 inches 5'2" Weight 170.00 lb BMI (Body Mass Index) 31.1 kg/m2 03/25/2020 9:48am BP Systolic 108 mmHg RT Arm BP Diastolic 70 mmHg RT Arm Heart Rate 116 /min Height 62.0 inches 5'2" Weight 169.12 lb O2 Saturation Level with Exercise 92 % RM Air BMI (Body Mass Index) 30.9 kg/m2 Results Test Acquired Date Facility Test Result H/L Range Note CBC With Differential 05/24/2020 [facility] [address] [place], [place] [id number] [phone] White Blood Count 6.9 10 Normal 4.0-10.0 [...] 36.0-66.0 Lymph % 26.9 % Normal 24.0-44.0 Liberty % 10.1 % High 0.0-5.0 Eos % 0.3 % Normal 0.0-3.0 Baso % 0.9 % Normal 0.0-1.0 Immature Granulocyte % 1.7 % Normal 0-3.0 Nucleated Red Blood Cell % 0.0 % Normal 0-0 Neutrophils # 4.2 10 Normal 1.5-8.5 Lymph # 1.9 10 Normal 1.5-5.0 Liberty # 0.7 10 Normal 0.0-0.8 Eos # 0.0 10 Normal 0.0-0.5 Baso # 0.1 10 Normal 0.0-0.2 Comprehensive Metabolic Profil 05/24/2020 [facility] [id number] [phone] Glucose, Fasting 94 mg/dL Normal 70-100 Blood [...] 1.0 Low 1.2-2.2 CBC With Differential 05/03/[address] [address] [phone] White Blood Count 5.7 10 Normal 4.0-10.0 [...] 36.0-66.0 Lymph % 31.5 % Normal 24.0-44.0 Liberty % 8.9 % High 0.0-5.0 Eos % 2.1 % Normal 0.0-3.0 Baso % 1.6 % High 0.0-1.0 Immature Granulocyte % 1.1 % Normal 0-3.0 Nucleated Red Blood Cell % 0.0 % Normal 0-0 Neutrophils # 3.1 10 Normal 1.5-8.5 Lymph # 1.8 10 Normal 1.5-5.0 Liberty # 0.5 10 Normal 0.0-0.8 Eos # 0.1 10 Normal 0.0-0.5 Baso # 0.1 10 Normal 0.0-0.2 Comprehensive Metabolic Profil 05/03/[address] [address] [phone] Glucose, Fasting 120 mg/dL High 70-100 Blood [...] 0.8 Low 1.2-2.2 Coronavirus 2019 Nasopharygeal 04/22/[address] [id number] [phone] Coronavirus 2019 Nasopharygeal This nucleic aci <SEE N OTE> 3 CBC With Differential 04/05/[address] 4540179 [phone] White Blood Count 5.4 10 Normal 4.0-10.0 [...] 36.0-66.0 Lymph % 12.1 % Low 24.0-44.0 Liberty % 2.2 % Normal 0.0-5.0 Eos % 0.0 % Normal 0.0-3.0 Baso % 0.4 % Normal 0.0-1.0 Immature Granulocyte % 0.9 % Normal 0-3.0 Nucleated Red Blood Cell % 0.0 % Normal 0-0 Neutrophils # 4.5 10 Normal 1.5-8.5 Lymph # 0.7 10 Low 1.5-5.0 Liberty # 0.1 10 Normal 0.0-0.8 Eos # 0.0 10 Normal 0.0-0.5 Baso # 0.0 10 Normal 0.0-0.2 Comprehensive Metabolic Profil 04/05/2020 [facility] [address] [place] [address] [phone] Glucose, Fasting 137 mg/dL High 70-100 Blood [...] 0.8 Low 1.2-2.2 CBC With Differential 03/29/2020 [facility] [address] [place] [address] [phone] White Blood Count 8.4 10 Normal 4.0-10.0 [...] 36.0-66.0 Lymph % 20.9 % Low 24.0-44.0 Liberty % 10.2 % High 0.0-5.0 Eos % 0.8 % Normal 0.0-3.0 Baso % 1.1 % High 0.0-1.0 Immature Granulocyte % 2.5 % Normal 0-3.0 Nucleated Red Blood Cell % 0.0 % Normal 0-0 Neutrophils # 5.4 10 Normal 1.5-8.5 Lymph # 1.8 10 Normal 1.5-5.0 Liberty # 0.9 10 High 0.0-0.8 Eos # 0.1 10 Normal 0.0-0.5 Baso # 0.1 10 Normal 0.0-0.2 Comprehensive Metabolic Profil 03/29/2020 [facility] [address] [place], [place] [id number] [phone] Glucose, Fasting 104 mg/dL High 70-100 Blood [...] 0.7 Low 1.2-2.2 Complete Blood Count 03/25/2020 [facility] Photograph Mounter: Dr William Quiroga [place], [place] 0[address]82 [phone] WBC 12.6 x10*3/UL High 4.1 - 10.9 [...] 2.0 - 7.8 Laboratory test finding 03/25/2020 [facility] Photograph Mounter: Dr William Quiroga [place], [place] [id number] [phone] Magnesium 2.2 mg/dL 1.8 - 2.4 Basic Metabolic Panel 03/25/2020 [facility] Photograph Mounter: Dr William Quiroga [place], [place] [address]121 [phone] Glucose 100 mg/dL High 74 - 99 [...] mL/min >60 8 Laboratory test finding 03/11/[address] [id number] [phone] Lipase 57 U/L Low 73-393 Basic Metabolic Profile 03/11/[address] 1403431 [phone] Glucose, Fasting 113 mg/dL High 70-100 Blood [...] 8.9 mg/dL Normal 8.5-10.1 Liver Profile 03/11/2020 [facility] nter [address] [place] [address] [phone] Ast/Sgot 9 U/L Normal 7-37 Alt/SGPT 23 U/L Normal 12-78 Alkaline Phosphatase 68 U/L Normal 45-117 Bilirubin,Total 0.6 mg/dL Normal 0.2-1.0 Bilirubin,Direct 0.1 mg/dL Normal 0.0-0.2 Total Protein 6.8 GM/DL Normal 6.4-8.2 Albumin 3.1 GM/DL Low 3.2-5.2 Albumin/Globulin Ratio 0.8 Low 1.2-2.2 Cardiac Marker Panel 03/11/2020 [facility] enter [address] [place] [address] [phone] CPK Creatine Phosphokinase 34 U/L Normal 26-19 2 CK-MB Value Mass < 1.0 NG/ML Normal <3.6 MB/CK Relative Index 2.94 Normal < Or =4 10 Troponin I < 0.02 NG/ML Normal < 0.10 11 Laboratory test finding 03/11/[address] [address] [phone] Lactic Acid Sepsis Protocol 1.4 mmol/L Normal 0.4- 2.0 12 Laboratory test finding 03/11/2020 [place] [address] [phone] Platelet Estimate NORMAL Normal Normal Differential 03/11/2020 [facility] nter [address] [place] [address] [phone] Neutrophils 96 % High 28-66 Lymphocytes 4 % Low 16-44 Anisocytosis 1+ Normal CBC With Differential 03/11/[address] [address] [phone] White Blood Count 12.8 10 High 4.0-10.0 [...] Prothrombin Time/Inr 03/11/2020 [facility] enter [address] [place] [address] [phone] Prothrombin Time 16.8 seconds High 11.8-14.0 Inr 1.33 Normal 13 CBC With Differential 03/08/2020 [facility] [address] [place] [address] [phone] White Blood Count 19.9 10 High 4.0-10.0 [...] 36.0-66.0 Lymph % 7.3 % Low 24.0-44.0 Liberty % 4.3 % Normal 0.0-5.0 Eos % 0.0 % Normal 0.0-3.0 Baso % 0.2 % Normal 0.0-1.0 Immature Granulocyte % 1.9 % Normal 0-3.0 Nucleated Red Blood Cell % 0.0 % Normal 0-0 Neutrophils # 17.2 10 High 1.5-8.5 Lymph # 1.5 10 Normal 1.5-5.0 Liberty # 0.9 10 High 0.0-0.8 Eos # 0.0 10 Normal 0.0-0.5 Baso # 0.0 10 Normal 0.0-0.2 Comprehensive Metabolic Profil 03/08/[address] [address] [phone] Glucose, Fasting 252 mg/dL High 70-100 Blood [...] 0.9 Low 1.2-2.2 CBC With Differential 02/16/[address] [address] [phone] White Blood Count 16.7 10 High 4.0-10.0 [...] 36.0-66.0 Lymph % 7.3 % Low 24.0-44.0 Liberty % 3.5 % Normal 0.0-5.0 Eos % 0.0 % Normal 0.0-3.0 Baso % 0.1 % Normal 0.0-1.0 Immature Granulocyte % 1.1 % Normal 0-3.0 Nucleated Red Blood Cell % 0.0 % Normal 0-0 Neutrophils # 14.7 10 High 1.5-8.5 Lymph # 1.2 10 Low 1.5-5.0 Liberty # 0.6 10 Normal 0.0-0.8 Eos # 0.0 10 Normal 0.0-0.5 Baso # 0.0 10 Normal 0.0-0.2 Comprehensive Metabolic Profil 02/16/[address] 3184761 [phone] Glucose, Fasting 197 mg/dL High 70-100 Blood [...] 1.1 Low 1.2-2.2 CBC With Differential 02/11/[address] [address] [phone] White Blood Count 5.9 10 Normal 4.0-10.0 [...] 36.0-66.0 Lymph % 38.6 % Normal 24.0-44.0 Liberty % 7.5 % High 0.0-5.0 Eos % 3.6 % High 0.0-3.0 Baso % 0.9 % Normal 0.0-1.0 Immature Granulocyte % 1.0 % Normal 0-3.0 Nucleated Red Blood Cell % 0.0 % Normal 0-0 Neutrophils # 2.8 10 Normal 1.5-8.5 Lymph # 2.3 10 Normal 1.5-5.0 Liberty # 0.4 10 Normal 0.0-0.8 Eos # 0.2 10 Normal 0.0-0.5 Baso # 0.1 10 Normal 0.0-0.2 Comprehensive Metabolic Profil 02/11/[address] [address] [phone] Glucose, Fasting 106 mg/dL High 70-100 Blood [...] 1.2 Normal 1.2-2.2 CBC With Differential 01/07/[address] [address] [phone] White Blood Count 7.5 10 Normal 4.0-10.0 [...] 36.0-66.0 Lymph % 33.3 % Normal 24.0-44.0 Liberty % 7.9 % High 0.0-5.0 Eos % 3.5 % High 0.0-3.0 Baso % 1.1 % High 0.0-1.0 Immature Granulocyte % 1.3 % Normal 0-3.0 Nucleated Red Blood Cell % 0.0 % Normal 0-0 Neutrophils # 4.0 10 Normal 1.5-8.5 Lymph # 2.5 10 Normal 1.5-5.0 Liberty # 0.6 10 Normal 0.0-0.8 Eos # 0.3 10 Normal 0.0-0.5 Baso # 0.1 10 Normal 0.0-0.2 PT & Aptt 01/07/2020 [facility] nter [address] [place] [address] [phone] Prothrombin Time 12.7 seconds Normal 11.8-14.0 Inr 0.98 Normal 17 Partial Thromboplastin Time 32.3 seconds Normal 25.0-38.4 Comprehensive Metabolic Profil 01/07/2020 [facility] [address] [place] [address] [phone] Glucose, Fasting 90 mg/dL Normal 70-100 Blood [...] Little GFR Left ESRD GFR <15 on WATCH INSPECTOR FINAL MOVEMENT 2 Units are mL/min/1.73 m2 Chronic Kidney Disease Staging per NKF: Stage I & II GFR >=60 Normal to Mildly Decreased Stage III GFR 30-59 Moderately Decreased Stage IV GFR 15-29 Severely Decreased Stage V GFR <15 Very Little GFR Left ESRD GFR <15 on WATCH INSPECTOR FINAL MOVEMENT 3 This nucleic acid amplificat ion test was developed and its performance characteristics determined by [employer]. Nucleic acid amplification tests include PCR and [...] detected) result in this assay. Performed at: [address] [id number] Photograph Mounter: Julia Garcia MD, Phone: [phone] Not Detected 4 Units are mL/min/1.73 m2 Chronic Kidney Disease Staging per NKF: Stage I & II GFR >=60 Normal to Mildly Decreased Stage III GFR 30-59 Moderately Decreased Stage IV GFR 15-29 Severely Decreased Stage V GFR <15 Very Little GFR Left ESRD GFR <15 on WATCH INSPECTOR FINAL MOVEMENT 5 Units are mL/min/1.73 m2 Chronic Kidney Disease Staging per NKF: Stage I & II GFR >=60 Normal to Mildly Decreased Stage III GFR 30-59 Moderately Decreased Stage IV GFR 15-29 Severely Decreased Stage V GFR <15 Very Little GFR Left ESRD GFR <15 on WATCH INSPECTOR FINAL MOVEMENT 6 NOTE: RESULT VERIFIED. 7 100-125 mg/dL PRE-DIABET ES/FASTING >126 mg/dL DIABETES/FASTING 8 CHRONIC KIDNEY DISEASE STAGI NG PER NKF STAGE I & II GFR >= 60 NORMAL TO MILDLY DECREASED STAGE III GFR 30-59 MODERATELY DECREASED STAGE IV GFR 15-29 SEVERELY DECREASED STAGE V GFR <15 VERY LITTLE GFR LEFT ESRD GFR <15 ON WATCH INSPECTOR FINAL MOVEMENT 9 Units are mL/min/1.73 m2 Chronic Kidney Disease Staging per NKF: Stage I & II GFR >=60 Normal to Mildly Decreased Stage III GFR 30-59 Moderately Decreased Stage IV GFR 15-29 Severely Decreased Stage V GFR <15 Very Little GFR Left ESRD GFR <15 on WATCH INSPECTOR FINAL MOVEMENT 10 DIAGNOSIS CRITERIA MMB ng/ml Relative Index (RI) NON-AMI < or = 5 N/A LEE ZONE > 5 < or = 4 AMI > 5 > 4 11 Troponin I Reference Interva l for [employer] LOCI: 99th Percentile= 0.00-0.045 ng/ml Risk Stratification: [...] Little GFR Left ESRD GFR <15 on WATCH INSPECTOR FINAL MOVEMENT 15 Units are mL/min/1.73 m2 Chronic Kidney Disease Staging per NKF: Stage I & II GFR >=60 Normal to Mildly Decreased Stage III GFR 30-59 Moderately Decreased Stage IV GFR 15-29 Severely Decreased Stage V GFR <15 Very Little GFR Left ESRD GFR <15 on WATCH INSPECTOR FINAL MOVEMENT 16 Units are mL/min/1.73 m2 Chronic Kidney Disease Staging per NKF: Stage I & II GFR >=60 Normal to Mildly Decreased Stage III GFR 30-59 Moderately Decreased Stage IV GFR 15-29 Severely Decreased Stage V GFR <15 Very Little GFR Left ESRD GFR <15 on WATCH INSPECTOR FINAL MOVEMENT 17 THERAPUTIC HUMAN INR VALUES INDICATIONS NORMAL [...] Little GFR Left ESRD GFR <15 on WATCH INSPECTOR FINAL MOVEMENT Procedures Date Code Description Status 10/09/2019 [id number] Mammogram Completed 09/23/2019 [id number] Mammogram Completed 09/16/2019 [id number] Mammogram Completed 10/02/2017 [id number] Diabetic Retinal Eye Exam [employer] Description No Information Available Encounters Type Date Location Provider Dx Diagnosis Office Visit 03/25/2020 10:00a [facility] PLui Adams M.D. C50.919 Malignant neoplasm of unsp [...] other disorder Assessments Date Code Description Provider 03/25/2020 C50.919 [...] disorder Arlyn Adams M.D. Plan of Treatment No Information Available Functional Status Description No Information Available Mental Status Description No Information Available Referrals Description No Information Available
--- OUTSIDE RECORDS SUMMARY | 2020-07-30 07:45 | CCD ---
Author Author [facility] Organization [facility] Address Unknown Phone Unavailable Care Team Providers Care Residential Counselor Name Role Phone FRANCI, E UMAIR DO Unavailable Unavailable FRANCI, E UMAIR DO Unavailable Unavailable FRANCI, E UMAIR DO Unavailable Unavailable FRANCI, E UMAIR DO Unavailable Unavailable FRANCI, E UMAIR DO Unavailable Unavailable FRANCI, E UMAIR DO Unavailable Unavailable FRANCI, E UMAIR DO Unavailable Unavailable FRANCI, E UMAIR DO Unavailable Unavailable FRANCI, E UMAIR DO Unavailable Unavailable FRANCI, E UMAIR DO Unavailable Unavailable FRANCI, E UMAIR DO Unavailable Unavailable FRANCI, E UMAIR DO Unavailable Unavailable FRANCI, E UMAIR DO Unavailable Unavailable FARNCI, E UMAIR DO Unavailable Unavailable FRANCI, E UMAIR DO Unavailable Unavailable FRANCI, E UMAIR DO Unavailable Unavailable FRANCI, E UMAIR DO Unavailable Unavailable FRANCI, E UMAIR DO Unavailable Unavailable FRANCI, E UMAIR DO Unavailable Unavailable FRANCI, E UMAIR DO Unavailable Unavailable FRANCI, E UMAIR DO Unavailable Unavailable LEVITSKIY, WILLY Unavailable Unavailable Ruperto, Cris 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 Unavailable Unavailable Ruperto, Cris 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 Unavailable Unavailable Ruperto, Cris 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 Unavailable Unavailable Ruperto, Cris 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 Unavailable Unavailable Ruperto, Cris 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 Unavailable Unavailable Ruperto, Cris 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 Unavailable Unavailable Ruperto, Cris 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 Unavailable Unavailable Ruperto, Cris 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 Unavailable Unavailable Ruperto, Cris 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 Unavailable Unavailable Ruperto, Cris 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 Unavailable Unavailable Ruperto, Cris 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 Unavailable Unavailable Ruperto, Cris 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 Unavailable Unavailable Ruperto, Cris 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 Unavailable Unavailable Ruperto, Cris 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 Unavailable Unavailable Ruperto, Cris 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 Unavailable Unavailable Ruperto, Cris 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 Unavailable Unavailable Ruperto, Cris 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 Unavailable Unavailable Ruperto, Cris 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 Unavailable Unavailable Ruperto, Crsi 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 Unavailable Unavailable Ruperto, Cris 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 Unavailable Unavailable Ruperto, Cris 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 Unavailable Unavailable Ruperto, Cris 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 Unavailable Unavailable Ruperto, Cris 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 Unavailable Unavailable Ruperto, Cris 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 Unavailable Unavailable Ruperto, Cris 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 Unavailable Unavailable Ruperto, Cris 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 Unavailable Unavailable Ruperto, Cris 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 Unavailable Unavailable Ruperto, Cris 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 Unavailable Unavailable Ruperto, Cris 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 Unavailable Unavailable Ruperto, Cris 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 Unavailable Unavailable Ruperto, Cris 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 Unavailable Unavailable Ruperto, Cris 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 Unavailable Unavailable Ruperto, Cris 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 Unavailable Unavailable Ruperto, Cris 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 Unavailable Unavailable Ruperto, Cris 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 Unavailable Unavailable Ruperto, Cris 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 Unavailable Unavailable Ruperto, Cris 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 Unavailable Unavailable Ruperto, Cris 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 Unavailable Unavailable Ruperto, Cris 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 Unavailable Unavailable Ruperto, Cris 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 Unavailable Unavailable Ruperto, Cris 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 Unavailable Unavailable Ruperto, Cris 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 Unavailable Unavailable Ruperto, Cris 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 Unavailable Unavailable Ruperto, Cris 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 Unavailable Unavailable Ruperto, Cris 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 Unavailable Unavailable Ruperto, Cris 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 Unavailable Unavailable Ruperto, Cris 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 Unavailable Unavailable Ruperto, Cris 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 Unavailable Unavailable Ruperto, Cris 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 Unavailable Unavailable Ruperto, Cris 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 Unavailable Unavailable Ruperto, Cris 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 Unavailable Unavailable Ruperto, Cris 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 Unavailable Unavailable Ruperto, Cris 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 Unavailable Unavailable CHROSTREX ALVAREZ MD Unavailable Unavailable CHROSTREX ALVAREZ MD Unavailable Unavailable CHROSTREX ALVAREZ MD Unavailable Unavailable CHROSTOWSKIREX MD Unavailable Unavailable CHROSTOWSKIREX MD Unavailable Unavailable CHROSTOWSKIREX MD Unavailable Unavailable CHROSTOWSKIREX MD Unavailable Unavailable CHROSTOWSKIREX MD Unavailable Unavailable CHROSTOWSKIREX MD Unavailable Unavailable CHROSTOWSKIREX MD Unavailable Unavailable CHROSTOWSKIYULIYAREX MD Unavailable Unavailable CHROSTOWSKIYULIYAREX MD Unavailable Unavailable CHROSTOWSKIYULIYAREX MD Unavailable Unavailable CHROSTOWSKIREX MD Unavailable Unavailable CHROSTOWSKIYULIYAREX MD Unavailable Unavailable CHROSTOWSKIYULIYAREX MD Unavailable Unavailable CHROSTOWSKI REX MD Unavailable Unavailable CHROSTOWSKIYULIYAREX MD Unavailable Unavailable CHROSTOWSKIYULIYAREX MD Unavailable Unavailable CHROSTOWSKIYULIYAREX MD Unavailable Unavailable CHROSTOWSKIYULIYAREX MD Unavailable Unavailable CHROSTOWSKIYULIYAREX MD Unavailable Unavailable CHROSTOWSKIYULIYAREX MD Unavailable Unavailable CHROSTOWSKIYULIYAREX MD Unavailable Unavailable CHROSTOWSKIYULIYAREX MD Unavailable Unavailable CHROSTOWSKI REX MD Unavailable Unavailable CHROSTOWSKIYULIYAREX MD Unavailable Unavailable CHROSTOWSKIYULIYAREX MD Unavailable Unavailable CHROSTOWSKIYULIYAERX MD Unavailable Unavailable CHROSTOWSKIYULIYAREX MD Unavailable Unavailable REX SERRANO MD Unavailable Unavailable REX SERRANO MD Unavailable Unavailable REX SERRANO MD Unavailable Unavailable REX SERRANO MD Unavailable Unavailable REX SERRANO MD Unavailable Unavailable REX SERRANO MD Unavailable Unavailable REX SERRANO MD Unavailable Unavailable REX SERRANO MD Unavailable Unavailable REX SERRANO MD Unavailable Unavailable REX SERRANO MD Unavailable Unavailable Nicolasa Adams MD Unavailable Unavailable Nicolasa Adams MD Unavailable Unavailable Nicolasa Adams MD Unavailable Unavailable Nicolasa Adams MD Unavailable Unavailable Nicolasa Adams MD Unavailable Unavailable Nicolsaa Adams MD Unavailable Unavailable Nciolasa Adams MD Unavailable Unavailable Nicolasa Adams MD Unavailable Unavailable Nicolasa Adams MD Unavailable Unavailable Nicolasa Adams MD Unavailable Unavailable Nicolasa Adams MD Unavailable Unavailable Nicolasa Adams MD Unavailable Unavailable Nicolasa Adams MD Unavailable Unavailable Nicolasa Adams MD Unavailable Unavailable Nicolasa Adams MD Unavailable Unavailable Nicolasa Adams MD Unavailable Unavailable Nicolasa Adams MD Unavailable Unavailable Nicolasa Adams MD Unavailable Unavailable Nicolasa Adams MD Unavailable Unavailable Nicolasa Adams MD Unavailable Unavailable Nicolasa Adams MD Unavailable Unavailable Nicolasa Adams MD Unavailable Unavailable Nicolasa Adams MD Unavailable Unavailable Nicolasa Adams MD Unavailable Unavailable Nicolasa Adams MD Unavailable Unavailable Nicolasa Adams MD Unavailable Unavailable Nicolasa Adams MD Unavailable Unavailable Nicolasa Adams MD Unavailable Unavailable Nicolasa Adams MD Unavailable Unavailable Nicolasa Adams MD Unavailable Unavailable Nicolasa Adams MD Unavailable Unavailable Nicolasa Adams MD Unavailable Unavailable Nicolasa Adams MD Unavailable Unavailable Nicolasa Adams MD Unavailable Unavailable Nicolasa Adams MD Unavailable Unavailable Nicolasa Adams MD Unavailable Unavailable Nicolasa Adams MD Unavailable Unavailable Nicolasa Adams MD Unavailable Unavailable Nicolasa Adams MD Unavailable Unavailable Nicolasa Adams MD Unavailable Unavailable Nicolasa Adams MD Unavailable Unavailable Nicolasa Adams MD Unavailable Unavailable Nicolasa Adams MD Unavailable Unavailable Nicolasa Adams MD Unavailable Unavailable Nicolasa Adams MD Unavailable Unavailable Nicolasa Adams MD Unavailable Unavailable Nicolasa Adams MD Unavailable Unavailable Nicolasa Adams MD Unavailable Unavailable Nicolasa Adams MD Unavailable Unavailable Nicolasa Adams MD Unavailable Unavailable Nicolasa Adams MD Unavailable Unavailable Nicolasa Adams MD Unavailable Unavailable Nicolasa Adams MD Unavailable Unavailable Nicolasa Adams MD Unavailable Unavailable Nicolasa Adams MD Unavailable Unavailable Nicolasa Adams MD Unavailable Unavailable Nicolasa Adams MD Unavailable Unavailable Nicolasa Adams MD Unavailable Unavailable Nicolasa Adams MD Unavailable Unavailable Nicolasa Adams MD Unavailable Unavailable Nicolasa Adams MD Unavailable Unavailable Nicolasa Adams MD Unavailable Unavailable Nicolasa Adams MD Unavailable Unavailable Nicolasa Adams MD Unavailable Unavailable Nicolasa Adams MD Unavailable Unavailable Nicolasa Adams MD Unavailable Unavailable Nicolasa Adams MD Unavailable Unavailable Nicolasa Adams MD Unavailable Unavailable Nicolasa Adams MD Unavailable Unavailable Nicolasa Adams MD Unavailable Unavailable Nicolasa Adams MD Unavailable Unavailable Nicolasa Adams MD Unavailable Unavailable Nicolasa Adams MD Unavailable Unavailable Nicolasa Adams MD Unavailable Unavailable Nicolasa Adams MD Unavailable Unavailable Nicolasa Adams MD Unavailable Unavailable Nicolasa Adams MD Unavailable Unavailable Nicolasa Adams MD Unavailable Unavailable Ruperto, Cris 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 Unavailable Unavailable Ruperto, Cris 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 Unavailable Unavailable Ruperto, Cris 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 Unavailable Unavailable Ruperto, Cris 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 Unavailable Unavailable Ruperto, Cris 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 Unavailable Unavailable Ruperto, Cris 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 Unavailable Unavailable Ruperto, Cris 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 Unavailable Unavailable Ruperto, Cris 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 Unavailable Unavailable Ruperto, Cris 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 Unavailable Unavailable Ruperto, Cris 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 Unavailable Unavailable Ruperto, Cris 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 Unavailable Unavailable Ruperto, Cris 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 Unavailable Unavailable Ruperto, Cris 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 Unavailable Unavailable Ruperto, Cris 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 Unavailable Unavailable Ruperto, Cris 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 Unavailable Unavailable Ruperto, Cris 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 Unavailable Unavailable Ruperto, Cris 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 Unavailable Unavailable Ruperto, Cris 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 Unavailable Unavailable Ruperto, Cris 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 Unavailable Unavailable Ruperto, Cris 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 Unavailable Unavailable Ruperto, Cris 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 Unavailable Unavailable Ruperto, Cris 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 Unavailable Unavailable Ruperto, Cris 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 Unavailable Unavailable Ruperto, Cris 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 Unavailable Unavailable Ruperto, Cris 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 Unavailable Unavailable Ruperto, Cris 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 Unavailable Unavailable Ruperto, Cris 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 Unavailable Unavailable Ruperto, Cris 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 Unavailable Unavailable Ruperto, Cris 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 Unavailable Unavailable Ruperto, Cris 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 Unavailable Unavailable Ruperto, Cris 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 Unavailable Unavailable Ruperto, Cris 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 Unavailable Unavailable Ruperto, Cris 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 Unavailable Unavailable Ruperto, Cris 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 Unavailable Unavailable Ruperto, Cris 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 Unavailable Unavailable Ruperto, Cris 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 Unavailable Unavailable Ruperto, Cris 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 Unavailable Unavailable Ruperto, Cris 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 Unavailable Unavailable Ruperto, Cris 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 Unavailable Unavailable Ruperto, Cris 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 Unavailable Unavailable Ruperto, Cris 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 Unavailable Unavailable Ruperto, Cris 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 Unavailable Unavailable Ruperto, Cris 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 Unavailable Unavailable Ruperto, Cirs 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 Unavailable Unavailable Ruperto, Cris 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 Unavailable Unavailable Ruperto, Cris 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 Unavailable Unavailable Ruperto, Cris 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 Unavailable Unavailable Ruperto, Cris 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 Unavailable Unavailable Ruperto, Cris 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 Unavailable Unavailable Ruperto, Cris 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 Unavailable Unavailable Ruperto, Cris 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 Unavailable Unavailable Ruperto, Cris 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 Unavailable Unavailable Ruperto, Cris 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 Unavailable Unavailable AMERICO THRASHER MD Unavailable Unavailable AMERICO THRASHER MD Unavailable Unavailable AMERICO THRASHER MD Unavailable Unavailable AMERICO THRASHER MD Unavailable Unavailable AMERICO THRASHER MD Unavailable Unavailable AMERICO THRASHER MD Unavailable Unavailable AMERICO THRASHER MD Unavailable Unavailable AMERICO THRASHER MD Unavailable Unavailable AMERICO THRASHER MD Unavailable Unavailable AMERICO THRASHER MD Unavailable Unavailable AMERICO THRASHER MD Unavailable Unavailable AMERICO THRASHER MD Unavailable Unavailable AMERICO THRASHER MD Unavailable Unavailable AMERICO THRASHER MD Unavailable Unavailable AMERICO THRASHER MD Unavailable Unavailable AMERICO THRASHER MD Unavailable Unavailable AMERICO THRASHER MD Unavailable Unavailable AMERICO THRASHER MD Unavailable Unavailable AMERICO THRASHER MD Unavailable Unavailable AMERICO THRASHER MD Unavailable Unavailable AMERICO THRASHER MD Unavailable Unavailable AMERICO THRASHER MD Unavailable Unavailable AMERICO THRASHER MD Unavailable Unavailable AMERICO THRASHER MD Unavailable Unavailable AMERICO THRASHER MD Unavailable Unavailable AMERICO THRASHER MD Unavailable Unavailable AMERICO THRASHER MD Unavailable Unavailable AMERICO THRASHER MD Unavailable Unavailable AMERICO THRASHER MD Unavailable Unavailable AMERICO THRASHER MD Unavailable Unavailable AMERICO THRASHER MD Unavailable Unavailable AMERICO THRASHER MD Unavailable Unavailable AMERICO THRASHER MD Unavailable Unavailable AMERICO THRASHER MD Unavailable Unavailable AMERICO THRASHER MD Unavailable Unavailable AMERICO THRASHER MD Unavailable Unavailable AMERICO THRASHER MD Unavailable Unavailable AMERICO THRASHER MD Unavailable Unavailable AMERICO THRASHER MD Unavailable Unavailable AMERICO THRASHER MD Unavailable Unavailable AMERICO THRASHER MD Unavailable Unavailable AMERICO THRASHER MD Unavailable Unavailable AMERICO THRASHER MD Unavailable Unavailable AMERICO THRASHER MD Unavailable Unavailable AMERICO THRASHER MD Unavailable Unavailable AMERICO THRASHER MD Unavailable Unavailable AMERICO THRASHER MD Unavailable Unavailable AMERICO THRASHER MD Unavailable Unavailable AMERICO THRASHER MD Unavailable Unavailable AMERICO THRASHER MD Unavailable Unavailable AMERICO THRASHER MD Unavailable Unavailable AMERICO THRASHER MD Unavailable Unavailable AMERICO THRASHER MD Unavailable Unavailable AMERICO THRASHER MD Unavailable Unavailable AMERICO THRASHER MD Unavailable Unavailable AMERICO THRASHER MD Unavailable Unavailable AMERICO THRASHER MD Unavailable Unavailable AMERICO THRASHER MD Unavailable Unavailable AMERICO THRASHER MD Unavailable Unavailable AMERICO THRASHER MD Unavailable Unavailable AMERICO THRASHER MD Unavailable Unavailable AMERICO THRASHER MD Unavailable Unavailable AMERICO THRASHER MD Unavailable Unavailable AMERICO THRASHER MD Unavailable Unavailable AMERICO THRASHER MD Unavailable Unavailable AMERICO THRASHER MD Unavailable Unavailable AMERICO THRASHER MD Unavailable Unavailable AMERICO THRASHER MD Unavailable Unavailable AMERICO THRASHER MD Unavailable Unavailable AMERICO THRASHER MD Unavailable Unavailable AMERICO THRASHER MD Unavailable Unavailable AMERICO THRASHER MD Unavailable Unavailable AMERICO THRASHER MD Unavailable Unavailable AMERICO THRASHER MD Unavailable Unavailable DOMBROWSKA, K KARYN DO Unavailable Unavailable DOMBROWSKA, K KARYN DO Unavailable Unavailable DOMBROWSKA, K KARYN DO Unavailable Unavailable DOMBROWSKA, K KARYN DO Unavailable Unavailable DOMBROWSKA, K KARYN DO Unavailable Unavailable DOMBROWSKA, K KARYN DO Unavailable Unavailable DOMBROWSKA, K KARYN DO Unavailable Unavailable DOMBROWSKA, K KARYN DO Unavailable Unavailable DOMBROWSKA, K KARYN DO Unavailable Unavailable DOMBROWSKA, K KARYN DO Unavailable Unavailable DOMBROWSKA, K KARYN DO Unavailable Unavailable DOMBROWSKA, K KARYN DO Unavailable Unavailable DOMBROWSKA, K KARYN DO Unavailable Unavailable DOMBROWSKA, K KARYN DO Unavailable Unavailable DOMBROWSKA, K KARYN DO Unavailable Unavailable DOMBROWSKA, K KARYN DO Unavailable Unavailable Humphrey Ramos MD Unavailable Unavailable Humphrey Ramos MD Unavailable Unavailable Humphrey Ramos MD Unavailable Unavailable Humphrey Ramos MD Unavailable Unavailable Humphrey Ramos MD Unavailable Unavailable Humphrey Ramos MD Unavailable Unavailable Humphrey Ramos MD Unavailable Unavailable Humphrey Ramos MD Unavailable Unavailable Humphrey Ramos MD Unavailable Unavailable Humphrey Ramos MD Unavailable Unavailable Humphrey Ramos MD Unavailable Unavailable Humphrey Ramos MD Unavailable Unavailable Humphrey Ramos MD Unavailable Unavailable Humphrey Ramos MD Unavailable Unavailable Humphrey Ramos MD Unavailable Unavailable Humphrey Ramos MD Unavailable Unavailable Humphrey Ramos MD Unavailable Unavailable Humphrey Ramos MD Unavailable Unavailable Humphrey Ramos MD Unavailable Unavailable Humphrey Ramos MD Unavailable Unavailable Quetell, Humphrey MD Unavailable Unavailable Quetell, Humphrey MD Unavailable Unavailable Quetell, Humphrey MD Unavailable Unavailable Quetell, Humphrey MD Unavailable Unavailable Quetell, Humphrey MD Unavailable Unavailable Quetell, Humphrey MD Unavailable Unavailable Quetell, Humphrey MD Unavailable Unavailable Quetell, Humphrey MD Unavailable Unavailable Quetell, Humphrey MD Unavailable Unavailable Quetell, Humphrey MD Unavailable Unavailable Quetell, Humphrey MD Unavailable Unavailable Quetell, Humphrey MD Unavailable Unavailable Quetell, Humphrey MD Unavailable Unavailable Quetell, Humphrey MD Unavailable Unavailable Quetell, Humphrey MD Unavailable Unavailable Quetell, Humphrey MD Unavailable Unavailable Quetell, Humphrey MD Unavailable Unavailable Quetell, Humphrey MD Unavailable Unavailable Quetell, Humphrey MD Unavailable Unavailable Quetell, Humphrey MD Unavailable Unavailable Quetell, Humphrey MD Unavailable Unavailable Quetell, Humphrey MD Unavailable Unavailable Quetell, Humphrey MD Unavailable Unavailable Quetell, Humphrey MD Unavailable Unavailable Quetell, Humphrey MD Unavailable Unavailable Quetell, Humphrey MD Unavailable Unavailable Quetell, Humphrey MD Unavailable Unavailable Quetell, Humphrey MD Unavailable Unavailable Quetell, Humphrey MD Unavailable Unavailable Quetell, Humphrey MD Unavailable Unavailable Quetell, Humphrey MD Unavailable Unavailable Quetell, Humphrey MD Unavailable Unavailable Quetell, Uhmphrey MD Unavailable Unavailable Quetell, Humphrey MD Unavailable Unavailable Quetell, Humphrey MD Unavailable Unavailable Re-disclosure Warning The records that you are about to access may contain information from federally-assisted alcohol or drug abuse programs. If such information is present, then the following federally mandated warning applies: This information has been disclosed to you from records protected by federal confidentiality rules (42 CFR part 2). The federal rules prohibit you from making any further disclosure of this information unless further disclosure is expressly permitted by the written consent of the person to whom it pertains or as otherwise permitted by 42 CFR part 2. A general authorization for the release of medical or other information is NOT sufficient for this purpose. The Federal rules restrict any use of the information to criminally investigate or prosecute any alcohol or drug abuse patient.The records that you are about to access may contain highly sensitive health information, the redisclosure of which is protected by Article 27-F of the [facility] Public Health law. If you continue you may have access to information: Regarding HIV / AIDS; Provided by facilities licensed or operated by the [facility] Office of Mental Health; or Provided by the [facility] Office for People With Developmental Disabilities. If such information is present, then the following [facility] mandated warning applies: This information has been disclosed to you from confidential records which are protected by state law. State law prohibits you from making any further disclosure of this information without the specific written consent of the person to whom it pertains, or as otherwise permitted by law. Any unauthorized further disclosure in violation of state law may result in a fine or fdc sentence or both. A general authorization for the release of medical or other information is NOT sufficient authorization for further disc losure. Allergies and Adverse Reactions Type Description Substance Reaction Status Data Source(s ) Drug allergy OXYCODONE-ACETAMINOPHEN OXYCODONE-ACETAMINOPHEN Other [facility] Drug Class CLINDAMYCIN/LINCOMYCIN CLINDAMYCIN/LINCOMYCIN Other [facility] Drug allergy Iodine Drug allergy Unknown Active eCW1 ([facility]) Drug allergy Cephalexin Cephalexin Rash Active eCW1 ([facility]) x-ray dye x-ray dye x-ray dye Anaphylaxis Active eCW1 ([facility]) x-ray dye x-ray dye x-ray dye Anaphylaxis Active eCW1 ([facility]) x-ray dye x-ray dye x-ray dye Anaphylaxis Active eCW1 ([facility]) x-ray dye x-ray dye x-ray dye Anaphylaxis Active eCW1 ([facility]) x-ray dye x-ray dye x-ray dye Anaphylaxis Active eCW1 ([facility]) x-ray dye x-ray dye x-ray dye Anaphylaxis Active eCW1 ([facility]) x-ray dye x-ray dye x-ray dye Anaphylaxis Active eCW1 ([facility]) x-ray dye x-ray dye x-ray dye Anaphylaxis Active eCW1 ([facility]) Drug Allergy Drug Allergy NKDA MED[facility] ([facility]) Family History Family Member Name Family Member Gender Family Member Status Date o f Status Description Data Source(s) Unknown Male Problem MED[facility] ([facility]) () Encounters Encounter Providers Location Date Indications Data Source(s ) Unknown [address] [facility] [address] 06/30/2020 12:00:00 AM EST eCW1 ([facility]) Out[place] [address] [facility] [place] [address] 06/28/2020 12:00:00 AM EST eCW1 ([facility]) Outpatient [address] [facility] [address] 06/25/2020 12:00:00 AM EST eCW1 ([facility]) Outpatient Attender: Arlyn Hedrick 09:00:00 AM EST [facility] ([facility] ) Outpatient Attender: Arlyn Hedrick 10:00:00 AM EDT [facility] ([facility] ) Outpatient [address] [facility] [address] 03/11/2020 12:00:00 AM EDT eCW1 ([facility]) Outpatient Attender: REX SERRANO MD Main Office 03/08/2020 08:30:00 AM EDT [facility] ([facility]) ( FU) Breast Center Follow Up [address] [place] [phone] 01/26/2020 12:00:00 AM EDT eCW1 ([facility]) Outpatient Attender: Humphrey Ramos MDAdmitter: Humphrey Ramos MDReferrer: WILLY COOK [id number] 12/30/2019 12:00:00 AM EDT - 12/30/2019 12:00:00 AM EDT Mastitis without abscess [facility] Mastitis without abscess Patient discharged. Recurring Patient Attender: AMERICO THRASHER MDReferrer: Arlyn maldonado MD 12/15/2019 04:21:16 PM EDT [facility] Postop visit [address] [facility] [address] 12/12/2019 12:00:00 AM EDT eCW1 ([facility]) Outpatient Attender: AMERICO THRASHER MDReferrer: Cris JOHNSON 12/09/2019 01:29:13 PM EDT [facility] [address] [place] [phone] 12/08/2019 12:00:00 AM EDT eCW1 ([facility]) Recurring Patient Attender: AMERICO THRASHER MDReferrer: Arlyn maldonado MD 12/05/2019 02:01:00 PM EDT [facility] Postop visit [address] [facility] [address] 12/05/2019 12:00:00 AM EDT eCW1 ([facility]) [facility]: [facility] 08[facility]:00 AM EDT MED[facility] ([facility] ) [facility] Breast Care [address] [place], [place] [phone] 11/28/2019 12:00:00 AM EDT eCW1 ([facility]) [facility] [address] [place] [address] 11/20/2019 12:00:00 AM EDT eCW1 ([facility]) [facility] Breast Care [address] [place] [phone] 11/13/2019 12:00:00 AM EDT eCW1 ([facility]) Outpatient Attender: UMAIR Rivas/Venancio/Sal/Jose arroyo 11/07/2019 09:30:00 AM EDT MEDENT ([facility]) [facility] Breast Care [address] [place] [phone] 11/07/2019 12:00:00 AM EDT eCW1 ([facility]) Outpatient Admitter: KARYN Mendez: DAVIE BENAVIDEZ DO 11/05/2019 12:00:00 AM EDT Malignant neoplasm of unspecified site o f unspecified female breast [facility] Malignant neoplasm of unspecified site o f unspecified female breast [facility] [address] [place] [address] 11/05/2019 12:00:00 AM EDT eCW1 ([facility]) [facility] Breast Care [address] [place] [address] 11/05/2019 12:00:00 AM EDT eCW1 ([facility]) Recurring Patient Attender: AMERICO THRASHER MDReferrer: Arlyn maldonado MD 11/04/2019 03:02:27 PM EDT [facility] Recurring Patient Attender: AMERICO THRASHER MDReferrer: Arlyn maldonado MD 11/04/2019 03:01:50 PM EDT [facility] Breast Care [address] [place] [phone] 11/04/2019 12:00:00 AM EDT eCW1 ([facility]) [facility] Breast Care [address] [place] [phone] 10/31/2019 12:00:00 AM EDT eCW1 ([facility]) [facility] Breast Care [address] [place] [phone] 10/30/2019 12:00:00 AM EDT eCW1 ([facility]) Outpatient Attender: Arlyn Hedrick 03:00:00 PM EDT MEDENT ([facility] ) Outpatient [address] [facility] [address] 10/27/2019 12:00:00 AM EDT eCW1 ([facility]) [facility] Breast Care [address] [place] [phone] 10/27/2019 12:00:00 AM EDT eCW1 ([facility]) [facility] Breast Care [address] [place] [phone] 10/21/2019 12:00:00 AM EDT eCW1 ([facility]) [facility] Breast Care [address] [place] [phone] 10/16/2019 12:00:00 AM EDT eCW1 ([facility]) Unknown [address] [facility] [address] 10/13/2019 12:00:00 AM EDT eCW1 ([facility]) [facility] Breast Care [address] [place] [phone] 10/13/2019 12:00:00 AM EDT eCW1 ([facility]) [facility] Breast Care [address] [place] [phone] 10/09/2019 12:00:00 AM EDT eCW1 ([facility]) [facility] Breast Care [address] [place] [phone] 09/30/2019 12:00:00 AM EDT eCW1 ([facility]) [facility] [address] [place] [address] 09/16/2019 12:00:00 AM EDT eCW1 ([facility]) Outpatient Attender: Cris Hickey 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 Junaid Hedrick 0 09/11/2019 09:45:00 AM EST MEDENT ([facility] ) [facility] Urology [address] [place] [phone] 09/04/2019 12:00:00 AM EST eCW1 ([facility]) [facility] Urology Center [address] [place] [phone] 07/07/2019 12:00:00 AM EST eCW1 ([facility]) [facility] Urology [address] [place] [phone] 06/03/2019 12:00:00 AM EST eCW1 ([facility]) Medications Medication Brand Name Start Date Product Form Dose Route Admi nistrative Instructions Pharmacy Instructions Status Indications Reaction Description Data Source(s) Metamucil 06/01/2020 12:00:00 AM EST complete d MEDENT ([facility]) Cefuroxime 500 MG Oral Tablet Cefuroxime Axetil 05/29/2020 12:00:00 A M EST ORAL completed [facility] ([facility]) Metronidazole 500 MG Oral Tablet Metronidazole 03/29/2020 12:00:00 AM EDT ORAL completed MEDENT ([facility]) Lactobacillus acidophilus [id number] UNT Oral Capsule Probiot ic 03/22/2020 12:00:00 AM EDT ORAL active M EDENT ([facility]) Amoxicillin 875 MG / Clavulanate 125 MG Oral Tablet Am oxicillin/Clavulanate Potassium 03/19/2020 12:00:00 AM EDT ORAL completed MEDENT ([facility]) Acetaminophen 250 MG / Aspirin 250 MG / Caffeine 65 MG Oral Tablet [Excedrin] Excedrin Migraine 03/19/2020 12:00:00 AM EDT activ e MEDENT ([facility]) Acetaminophen 500 MG Oral Tablet Acetaminophen 03/19/2020 12:00:00 AM EDT ORAL active MEDENT ([facility]) Ondansetron 8 MG Oral Tablet Ondansetron HCL 03/19/2020 12:00:00 AM E DT ORAL completed [facility] ([facility]) Cholecalciferol 5000 UNT Oral Capsule Vitamin D3 03/19/2020 12:00:00 AM EDT ORAL active MEDENT ([facility]) Levofloxacin 500 MG Oral Tablet levoFLOXacin (LEVAQUIN ) tablet 500 mg levoFLOXacin (LEVAQUIN) tablet 500 mg 12/30/2019 08:00:00 PM EDT 50 0 mg Oral completed 500 mg, Oral, E very 24 hours, First dose on Sun12/30/19 at 2000, For 1 dose
Administer 2 hours before or 4 hours after oral magnesium, calcium, iron, and sucralfate.
Discouraged Uses: Treatment of UTI
[facility] Medication administered onsite 0.4 ML Enoxaparin sodium 100 MG/ML Prefi lled Syringe enoxaparin sodium (LOVENOX) injection 40 mg enoxaparin sodium (LOVENOX) injection 40 mg 12/30/2019 09:00:00 AM EDT 40 mg Subcutaneous active 40 mg, Subcutaneous, Daily Standard, First dose on Sun12/30/19 at 0900, For 30 days
Non Patients: body weight < 150 kg, CrCl > 30 mL/min. Guidelines for Lovenox:MUST wait 24 hours before starting Enoxaparin if patient has epidural catheter.D/C Enoxaparin 10-12 hours prior to removing epidural catheter.May restart Enoxaparin 24 hours after epidural catheter has been removed.
[facility] Medication administered onsite 1 ML Ketorolac Tromethamine 15 MG/ML Car tridge ketorolac (TORADOL) 15 MG/ML injection 15 mg ketorolac (TORADOL) 15 MG/ML injection 15 mg 0 06:00:00 AM EDT 15 mg Intravenous active 15 m g, Intravenous, Every 6 hours PRN, Mild Pain (Pain Scale Score 1-3), Starting Sun12/30/19 at 0600, For 5 days [facility] Medication administered onsite Acetaminophen 325 MG Oral Tablet acetaminophen (TYLENO L) tablet 650 mg acetaminophen (TYLENOL) tablet 650 mg 12/30/2019 04:44:06 AM EDT 65 0 mg Oral active 650 mg, Oral, E very 6 hours PRN, Mild Pain (Pain Scale Score 1- 3), Headaches, Starting Sun12/30/19 at 0444, For 30 days
Maximum daily dose of acetaminophen is 3,000 mg from all sources in 24 hours.
[facility] Medication administered onsite tapentadol (NUCYNTA) tablet 50 mg 12/30/2019 01:21:04 AM EDT 50 mg Oral active [Order 1 Start] Name : tapentadol (NUCYNTA) tablet 50 mg Signed Summary: 50 mg, Oral, Every 6 hours PRN, Moderate Pain (Pain Scale Score 4-6), Starting Sun12/30/19 at 0121, For 3 days [Order 1 End] [Order 2 Start] Name: tapentadol (NUCYNTA) tablet 100 mg Signed Summary: 100 mg, Oral, Every 6 hours PRN, Severe Pain (Pain Scale Score 7-10), Starting Sun12/30/19 at 0121, For 3 days [Order 2 End] [facility] Medication administered onsite ondansetron (ZOFRAN) injection 4 mg [id number] 12/30/2019 01:21:0 4 AM EDT 4 mg Intravenous active 4 mg, In travenous, Every 6 hours PRN, Nausea, Vomiting, Starting Sun12/30/19 at 0121, For 30 days [facility] Medication administered onsite Calcium Chloride 0.0014 MEQ/ML / Potassi um Chloride 0.004 MEQ/ML / Sodium Chloride 0.103 MEQ/ML / Sodium Lactate 0.028 MEQ/ML Injectable Solution lactated ringers infusion lactated ringers infusion 12/30/2019 01:00:00 AM EDT 125 mL/h Intravenous aborted at 125 m L/hr, Intravenous, Continuous, Starting Sun12/30/19 at 0100, For 30 days [facility] Medication administered onsite ondansetron (ZOFRAN) injection 4 mg [id number] 12/30/2019 12:18:0 7 AM EDT 4 mg Intravenous completed 4 mg, In travenous, Once PRN, Nausea, Vomiting, Starting Sun12/30/19 at 0018, For 1 dose, Recovery [facility] Medication administered onsite Ketorolac Tromethamine 10 MG Oral Tablet Ketorolac Tromethamine 10 MG Oral Tablet (TORADOL) Ketorolac Tromethamine 10 MG Oral Tablet (TORADOL) 12:00:00 AM EDT 10 mg Oral active Take 1 tablet by mouth every 6 (six) hours as needed for Pain for up to 5 days [facility] Levofloxacin 500 MG Oral Tablet levoFLOXacin 500 MG Or al Tablet (LEVAQUIN) levoFLOXacin 500 MG Oral Tablet (LEVAQUIN) 12/30/2019 12:00:00 AM EDT 500 mg Oral active Take 1 tablet by onofre th every 24 (twenty-four) hours [facility] tapentadol 50 MG Oral Tablet Tapentadol HCl 50 MG Oral Tablet (Nucynta) Tapentadol HCl 50 MG Oral Tablet (Nucynta) 12/30/2019 12:00:00 AM EDT 50 mg Oral aborted Take 1 tablet by mouth every 6 (six) hours as needed (pain) for up to 3 days, Max Daily Dose: 200 mg [facility] Acetaminophen 325 MG Oral Tablet Acetaminophen 325 MG Oral T ablet 12/30/2019 12:00:00 AM EDT 650 mg Oral active Take 2 tablets by mouth every 6 (six) hours as needed for up to 10 days [facility] Acetaminophen 325 MG / Hydrocodone Alma trate 5 MG Oral Tablet HYDROcodone- Acetaminophen 5-325 MG Oral Tablet (LORTAB) HYDROcodone-Acetaminophen 5-325 MG Oral Tablet (LORTAB) 12/30/2019 12:00:00 AM EDT 1 {tbl} Oral active Take 1 tablet by mouth every 6 (six) hours as needed for Pain for up to 3 days, Max Daily Dose: 4 tablets [facility] Famotidine 0.4 MG/ML Injectable Solution famotidine (PEPCID) in sodium chloride 0.9 % IVPB 20 mg (premix) famotidine (PEPCID) in sodium chloride 0 .9 % IVPB 20 mg (premix) 12/29/2019 04:30:00 PM EDT 20 mg Intravenous c ompleted 20 mg, Intravenous, Once, Sun12/29/19 at 1630, For 1 dose, Pre-op [facility] Medication administered onsite Calcium Chloride 0.0014 MEQ/ML / Potassi um Chloride 0.004 MEQ/ML / Sodium Chloride 0.103 MEQ/ML / Sodium Lactate 0.028 MEQ/ML Injectable Solution lactated ringers infusion lactated ringers infusion 12/29/2019 04:00:00 PM EDT 100 mL/h Intravenous aborted at 100 m L/hr, Intravenous, Continuous, Starting Sun12/29/19 at 1600, For 30 days, Pre-op [facility] Medication administered onsite Sulfamethoxazole 800 MG / Trimethoprim 1 60 MG Oral Tablet Sulfamethoxazole- Trimethoprim 800-160 MG Sulfamethoxazole-Trimethoprim 800-160 MG 12/26/2019 12:00:00 AM EDT 1.0 {tablet} suspended Sulfamethoxazole-Trimethoprim 800-160 MG eCW1 ([facility]) Sulfamethoxazole 800 MG / Trimethoprim 1 60 MG Oral Tablet Sulfamethoxazole- Trimethoprim 800-160 MG Sulfamethoxazole-Trimethoprim 800-160 MG 12/26/2019 12:00:00 AM EDT 1.0 {tablet} active Sulfamethoxazole-Trimethoprim 800-160 MG eCW1 ([facility]) Sulfamethoxazole 800 MG / Trimethoprim 1 60 MG Oral Tablet Sulfamethoxazole- Trimethoprim 800-160 MG Sulfamethoxazole-Trimethoprim 800-160 MG 12/26/2019 12:00:00 AM EDT 1.0 {tablet} suspended Sulfamethoxazole-Trimethoprim 800-160 MG eCW1 ([facility]) Sulfamethoxazole 800 MG / Trimethoprim 1 60 MG Oral Tablet Sulfamethoxazole- Trimethoprim 800-160 MG Sulfamethoxazole-Trimethoprim 800-160 MG 12/26/2019 12:00:00 AM EDT 1.0 {tablet} suspended Sulfamethoxazole-Trimethoprim 800-160 MG eCW1 ([facility]) Sulfamethoxazole 800 MG / Trimethoprim 1 60 MG Oral Tablet Sulfamethoxazole- Trimethoprim 800-160 MG Sulfamethoxazole-Trimethoprim 800-160 MG 12/26/2019 12:00:00 AM EDT 1.0 {tablet} suspended Sulfamethoxazole-Trimethoprim 800-160 MG eCW1 ([facility]) Sulfamethoxazole 800 MG / Trimethoprim 1 60 MG Oral Tablet Sulfamethoxazole- Trimethoprim 800-160 MG Sulfamethoxazole-Trimethoprim 800-160 MG 12/26/2019 12:00:00 AM EDT 1.0 {tablet} active Sulfamethoxazole-Trimethoprim 800-160 MG eCW1 ([facility]) Sulfamethoxazole 800 MG / Trimethoprim 1 60 MG Oral Tablet Sulfamethoxazole- Trimethoprim 800-160 MG Sulfamethoxazole-Trimethoprim 800-160 MG 12/26/2019 12:00:00 AM EDT 1.0 {tablet} suspended Sulfamethoxazole-Trimethoprim 800-160 MG eCW1 ([facility]) Amoxicillin 500 MG Oral Capsule Amoxicillin 500 MG 12/22/2019 12:00 :00 AM EDT 1.0 {capsule} suspended Amoxicillin 500 MG eCW1 ([facility]) Amoxicillin 500 MG Oral Capsule Amoxicillin 500 MG 12/22/2019 12:00 :00 AM EDT 1.0 {capsule} active Amoxicillin 500 MG eCW1 ([facility]) Amoxicillin 500 MG Oral Capsule Amoxicillin 500 MG 12/22/2019 12:00 :00 AM EDT 1.0 {capsule} active Amoxicillin 500 MG eCW1 ([facility]) Amoxicillin 500 MG Oral Capsule Amoxicillin 500 MG 12/22/2019 12:00 :00 AM EDT 1.0 {capsule} suspended Amoxicillin 500 MG eCW1 ([facility]) Amoxicillin 500 MG Oral Capsule Amoxicillin 500 MG 12/22/2019 12:00 :00 AM EDT 1.0 {capsule} suspended Amoxicillin 500 MG eCW1 ([facility]) Amoxicillin 500 MG Oral Capsule Amoxicillin 500 MG 12/22/2019 12:00 :00 AM EDT 1.0 {capsule} suspended Amoxicillin 500 MG eCW1 ([facility]) Amoxicillin 500 MG Oral Capsule Amoxicillin 500 MG 12/22/2019 12:00 :00 AM EDT 1.0 {capsule} active Amoxicillin 500 MG eCW1 ([facility]) Amoxicillin 500 MG Oral Capsule Amoxicillin 500 MG 12/22/2019 12:00 :00 AM EDT 1.0 {capsule} suspended Amoxicillin 500 MG eCW1 ([facility]) Diphenhydramine Hydrochloride 25 MG Oral Tablet [Benadryl] B enadryl Allergy 11/28/2019 12:00:00 AM EDT ORAL active MEDENT ([facility]) Hydroxyzine Hydrochloride 25 MG Oral Tablet Hydroxyzine HCL 11/24/2019 12:00:00 AM EDT ORAL active MEDENT ([facility] ) Amoxicillin 500 MG Oral Tablet Amoxicillin 10/28/2019 12:00:00 AM EDT ORAL completed MEDENT ([facility]) Cephalexin 500 MG Oral Capsule Cephalexin 500 MG 10/13/2019 12:00:00 AM EDT active 1 capsule eCW1 ([facility]) Metformin hydrochloride 1000 MG Oral Tab let metformin (GLUCOPHAGE) 1000 MG tablet metformin (GLUCOPHAGE) 1000 MG tablet 1000 mg Oral aborted Take 1,000 mg by mouth daily. [facility] 24 HR metoprolol succinate 25 MG Extende d Release Oral Tablet metoprolol (TOPROL-XL) 25 MG 24 hr tablet metoprolol (TOPROL-XL) 25 MG 24 hr tablet 25 mg Oral aborted Take 25 mg by mouth Two times daily before meals. [facility] Ibuprofen 800 MG Oral Tablet Ibuprofen 800 MG Oral Tab let (MOTRIN) Ibuprofen 800 MG Oral Tablet (MOTRIN) 800 mg Oral aborted Take 800 mg by mouth every 8 (eight) hours as needed for Pain [facility] Sulfamethoxazole 800 MG / Trimethoprim 1 60 MG Oral Tablet Sulfamethoxazole- Trimethoprim 800-160 MG Oral Tablet (BACTRIM DS) Sulfamethoxazole-Trimethoprim 800-160 MG Oral Tablet (BACTRIM DS) 1 {tbl} Oral a borted Take 1 tablet by mouth Two Times Daily [facility] Insurance Providers Payer name Policy type / Coverage type Policy ID Covered alliance party ID Covered alliance party's relationship to mittal Policy Mittal Plan Information [place] 302/307 [id number] SP [id number] [place] 306/806 [id number] SP [id number] [place] 302/307 [id number] SP [id number] EXCELLUS BCBS B [id number] S VYS [id number] EMEDNY [id number] SP [id number] EXCELLUS H [id number] Self [id number] Blue Cross Blue Shield P [id number] SELF [id number] MEDICAID [id number] SP [id number] Blue Cross Blue Shield P [id number] SELF [id number] [place] 302/307 [id number] SP [id number] [place] 302/307 [id number] SP [id number] [facility] [id number] SP [id number] MEDICAID M [id number] Self [id number] EXCELLUS H [id number] Self [id number] BS Asad Trad/MX Medigap Part B [id number] Self [id number] [facility] [id number] Self [id number] ANSI-Not a Secondary Insurance [id number] Ghi FHP-(DO Not Use) Medigap Part B [id number] Self [id number] [place] [id number] Self [id number] Ghi FHP-(DO Not Use) Medigap Part B [id number] Self [id number] Ghi FHP-(DO Not Use) Medigap Part B [id number] Self [id number] EXCELLUS BCBS B [id number] S [id number] Ghi FHP-(DO Not Use) Medigap Part B [id number] Self [id number] Ghi FHP-(DO Not Use) Medigap Part B [id number] Self [id number] ANSI-Commercial [id number] [place]BS [place] 302/307 [id number] SP [id number] BCBS [place] 302/307 [id number] SP [id number] Ghi FHP-(DO Not Use) Medigap Part B [id number] Self [id number] Ghi FHP-(DO Not Use) Medigap Part B [id number] Self [id number] [place] [id number] Self [id number] Ghi FHP-(DO Not Use) Medigap Part B [id number] Self [id number] [place] [id number] Self [id number] BS Asad Trad/MX Commercial [id number] Self [id number] Blue Cross Blue Shield P [id number] SELF [id number] MEDICAID [id number] SP [id number] BLUE CROSS BLUE SHIELD -O/P [id number] 18 [id number] MEDICAID M [id number] S [id number] MEDICAID-O/P [id number] 18 [id number] BLUE CROSS BLUE SHIELD -O/P [id number] 18 [id number] MEDICAID -PHYSICIAN [id number] BLUE CROSS BLUE SHIELD -PHYSICIAN [id number] 18 [id number] MEDICAID - O/P EMERGENCY ROOM [id number] 18 [id number] BCBS [place] PPO 302/307 [id number] SP [id number] BRENDAN [id number] SP [id number] [facility] [place] [facility] HMO [id number] 1 [id number] SELF PAY UNAVAILABLE UNAVAILA BLE Problems, Conditions, and Diagnoses Code Display Name Description Problem Type Effective Dates Data Source(s) 800700321 Eruption Eruption Problem 03/08/2020 12:00:00 AM ED T MEDENT ([facility]) 92120244 Adverse reaction to drug Adverse reaction to drug Prob vinod 03/08/2020 12:00:00 AM EDT MED[facility] ([facility] ) N64.89 144733927 Seroma of breast Problem 12/22/2019 12:00:00 AM EDT eCW1 ([facility]) [id number] Infiltrating ductal carcinoma of breast, stage 3 Infiltrating ductal carcinoma of breast, stage 3 Problem 11/24/2019 12:00:00 AM EDT MEDE NT ([facility]) 632245271 History of bilateral mastectomy History of bilat eral mastectomy Problem 11/24/2019 12:00:00 AM EDT [facility] ([facility]) C50.911 330464835 Infiltrating ductal carcinoma of right br east Problem 11/05/2019 12:00:00 AM EDT eCW1 ([facility]) C50.911 [id number] Infiltrating ductal carcinoma of right br east Problem 11/05/2019 12:00:00 AM EDT eCW1 ([facility]) C50.912 003029622 Malignant neoplasm of unspecifie d site of left female breast Problem 10/27/2019 12:00:00 AM EDT eCW1 ([facility]) C50.912 [id number] Malignant neoplasm of unspecifie d site of left female breast Problem 10/27/2019 12:00:00 AM EDT eCW1 ([facility]) D05.12 [id number] 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 Problem 10/13/2019 12:00:00 AM EDT eCW1 ([facility]) D05.12 [id number] 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 Problem 10/13/2019 12:00:00 AM EDT eCW1 ([facility]) N95.0 45568159 PMB (postmenopausal bleeding) Problem 2019 12:00:00 AM EDT eCW1 ([facility]) N95.0 49524206 PMB (postmenopausal bleeding) Problem 2019 12:00:00 AM EDT eCW1 ([facility]) N13.2 Hydronephrosis with renal and ureteral c alculous obstruction Ureteral stone with hydronephrosis Problem 06/03/2019 12:00:00 AM EST eCW1 ([facility]) N13.2 Hydronephrosis with renal and ureteral c alculous obstruction Ureteral stone with hydronephrosis Problem 06/03/2019 12:00:00 AM EST eCW1 ([facility]) N61.0 Mastitis without abscess Mastitis without abscess Diag nosis 12/30/2019 01:21:14 AM EDT [facility] Breast infection Breast infection Diagnosis 12/29/2019 02 :51:49 PM EDT [facility] exposed right breast prosthesis , infect ion exposed right breast prosthesis , infection Diagnosis 12/29/2019 02:51:49 PM EDT [facility] C50.919 Malignant neoplasm of unspecified site o f unspecified female breast Malignant neoplasm of unspecified site of unspecified female breast Diagnosis 11/05/2019 08:55:00 AM [facility] Surgeries/Procedures Procedure Description Date Indications Data Source(s) ECG ROUTINE ECG W/LEAST 12 LDS W/I&R 06/24/2020 12:00: 00 AM EST TABATHA ([facility]) EKG 12-LEAD - CMAXX REPORT EKG 12-LEAD - CMAXX REPORT 12/29/2019 3:55 PM EDT 12/29/2019 07:55:03 PM EDT [facility] EKG 12-LEAD - CMAXX REPORT EKG 12-LEAD - CMAXX REPORT 12/29/2019 3:55 PM EDT 12/29/2019 07:55:03 PM EDT [facility] EKG 12-LEAD EKG 12-LEAD STAT 12/29/2019 3:55 PM EDT 12/29/2019 07:55:03 PM EDT [facility] GONADOTROPIN CHORIONIC QUANTITATIVE BETA HCG, QUANT Routine 12/29/2019 3:45 PM EDT 12/29/2019 07:45:00 PM EDT [facility] BLOOD COUNT COMPLETE AUTO&AUTO DIFRNTL WBC COUNT CBC AND DIFFER ENTIAL STAT 12/29/2019 3:45 PM EDT 12/29/2019 07:45:00 PM EDT [facility] COMPREHENSIVE METABOLIC PANEL COMPREHENSIVE METABOLIC PANEL STA T 12/29/2019 3:45 PM EDT 12/29/2019 07:45:00 PM EDT [facility] BRST RCNSTJ IMMT/DLYD W/TISS LOUVER 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 OPERATOR SBSQ XPNSJ 11/19 12:00:00 AM EDT MEDENT ([facility] ) BX BREAST 1ST LESION US IMAG 10/31/2019 12:00:00 AM ED T eCW1 ([facility]) NO CHARGE VISIT 10/21/2019 12:00:00 AM EDT eCW1 ([facility]) Mammogram 10/09/2019 12:00:00 AM EDT M EDLEROY ([facility]) BX BREAST 1ST LESION STRTCTC 10/09/2019 12:00:00 AM ED T eCW1 ([facility]) BX BREAST ADD LESION STRTCTC 10/09/2019 12:00:00 AM ED T eCW1 ([facility] [facility] [place]) Mammogram 09/23/2019 12:00:00 AM EDT M EDLEROY ([facility]) Mammogram 09/16/2019 12:00:00 AM EDT M EDENT ([facility]) BIOPSY CERVIX SINGLE/MULT/EXCISION OF LESION SPX 09/15 12:00:00 AM EDT eCW1 ([facility] [place]) Results ID Date Data Source [id number] 07/25/2020 09:00:00 AM EST [facility] Name Value Range Interpretation Code Description Data Frances rce(s) Supporting Document(s) SARS coronavirus 2 RNA Not Detected [facility] [place] This lab was ordered by [facility] and reported by [facility]. ID Date Data Source [id number] 07/12/2020 10:12:00 AM EST MEDENT ([facility]) Name Value Range Interpretation Code Description Data Frances rce(s) Supporting Document(s) Choriogonadotropin.beta subunit [Moles/volume] in Seru m or Plasma Laboratory test result [facility] GESTATIONAL AGE APPROXIMATE HCG RANGE (MIU/ML) - [...] monitoring the treatment of cancer patients. [employer] methodology. ID Date Data Source [id number] 07/12/2020 10:12:00 AM EST [facility] Name Value Range Interpretation Code Description Data Frances rce(s) Supporting Document(s) Appearance, Urine Laboratory test result [facility] Color, Urine Laboratory test result MEDE NT ([facility] Protein, Urine Auto Laboratory test result [facility]) Specific [place] Urine Auto 1.023 1.002-1.035 [facility] ([facility]) PH,Urine 5.0 units 5.0-9.0 [facility]) Urobilinogen, Urine Auto 0.2 mg/dL 0.0-2.0 MEDEN T ([facility]) Ketone, Urine Auto Laboratory test result [facility] Glucose, Urine (Ua) Auto Laboratory test result [facility] Leukocyte Esterase, Urine Auto Laboratory test result [facility] Bilirubin, Urine Auto Laboratory test result [facility] ([facility]) Nitrite, Urine Auto Laboratory test result [facility] ([facility]) WBC, Urine Auto 0 /HPF 0-3 [facility] ([facility]) RBC, Urine Auto 0 /HPF 0-3 [facility] ([facility]) Blood, Urine Blood Laboratory test result [facility] Bacteria, Urine Auto Laboratory test result [facility]ENT ([facility]) Hyaline Cast, Urine Auto 0 /LPF 0-1 MEDEN T ([facility]) Squamous Epithelial Cell Ur AU 0 /HPF 0-6 [facility] ([facility]) Amorphous Sediment Laboratory test result [facility] ([facility]) ID Date Data Source [id number] 07/12/2020 10:10:00 AM EST [facility] ([facility]) Name Value Range Interpretation Code Description Data Frances rce(s) Supporting Document(s) Glucose [Mass/volume] in Serum or Plasma 109 mg/dL 74-99 [facility] ([facility]) 100-125 mg/dL PRE-DIABETES/FASTING >126 mg/dL DIABETES/FASTING Urea nitrogen [Mass/volume] in Serum or Plasma 14 mg/dL 7-18 [facility] ([facility]) Creatinine 0.6 mg/dL 0.6-1.3 [facility] ([facility]) Potassium [Moles/volume] in Serum or Plasma 4.1 meq/L 3.5-5.1 [facility] ([facility]) Sodium [Moles/volume] in Serum or Plasma 139 meq/L 136-145 [facility] ([facility]) Chloride [Moles/volume] in Serum or Plasma 103 meq/L 98-107 [facility] ([facility]) Calcium [Mass/volume] in Serum or Plasma 8.7 mg/dL 8.5-10.1 [facility] ([facility]) Carbon dioxide, total [Moles/volume] in Serum or Plasma 26 meq/L 21 -32 [facility] Alkaline phosphatase isoenzyme [Units/volume] in Serum or Pl asma 69 mg/dL 46-116 [facility] ([facility]) Aspartate aminotransferase [Enzymatic activity/volume] in Serum or Plasma 21 U/L 15-37 [facility] Total Bilirubin 0.3 mg/dL 0.2-1.0 [facility]) Alanine aminotransferase [Enzymatic activity/volume] in Seru m or Plasma 36 U/L 12-78 [facility] ([facility]) Proteinase 3 Ab [Units/volume] in Serum 7.1 g/dL 6.4-8.2 [facility] ([facility]) Albumin [Mass/volume] in Serum or Plasma 3.9 g/dL 3.4-5.0 [facility]) A/G Ratio 1.22 CALC 1.00-1.90 [facility] Glomerular filtration rate/1.73 sq M pre dicted among blacks [Volume Rate/Area] in Serum or Plasma by Creatinine-based formula (MDRD) Laboratory test [facility] <content>CHRONIC KIDNEY DISEASE STAGING PER NKF</content>
<content></content>
<content>STAGE I & II GFR >= 60 NORMAL TO MILDLY DECREASED</content>
<content>STAGE III GFR 30-59 MODERATELY DECREASED</content>
<content>STAGE IV GFR 15-29 SEVERELY DECREASED</content>
<content>STAGE V GFR <15 VERY LITTLE GFR LEFT</content>
<content>ESRD GFR <15 ON PHONE TECHNICIAN</content>
<content></content> Glomerular filtration rate/1.73 sq M pre dicted among non-blacks [Volume Rate/Area] in Serum or Plasma by Creatinine-based formula (MDRD) Laboratory test result [facility] ([facility] ) ID Date Data Source [id number] 07/12/2020 10:10:00 AM EST [facility] ([facility]) Name Value Range Interpretation Code Description Data Frances rce(s) Supporting Document(s) Erythrocytes [#/volume] in Blood by Automated count 4.91 x10*6/UL 4.2 0-6.30 [facility] ([facility]) Leukocytes [#/volume] in Blood by Automated count 6.3 x10*3/UL 4.1-10 .9 [facility] ([facility]) Hemoglobin [Mass/volume] in Blood 14.5 g/dL 12.0-18.0 [facility] ([facility]) MCV 85.3 fL 80.0-97.0 [facility] ([facility]) MCH 29.5 pg 26.0-32.0 [facility] ([facility]) Hematocrit [Volume Fraction] of Blood by Automated count 41.9 % 3 7.0-51.0 [facility] MCHC 34.6 g/dL 31.0-38.0 [facility] ([facility]) Erythrocyte distribution width [Ratio] by Automated count 14.2 % 11.6-13.7 [facility] Platelets [#/volume] in Blood by Automated count 298 x10*3/UL 140-440 [facility] MPV 9.5 FL 7.8-11.0 [facility] ([facility]) Mid % 6.1 % 1.7-9.3 [facility] ([facility]) Neut % 69.3 % 37.0-92.0 [facility] ([facility]) Lymph % 24.6 % 10.0-58.5 [facility] ([facility]) Lymph # 1.5 x10*3/UL 0.6-4.1 [facility] ([facility]) Neut # 4.3 x10*3/UL 2.0-7.8 [facility] ([facility]) Mid # 0.5 x10*3/UL 0.1-0.6 [facility] ([facility]) ID Date Data Source [id number] 05/24/2020 03:34:00 PM EST [facility] ([facility]) Name Value Range Interpretation Code Description Data Frances rce(s) Supporting Document(s) Blood Urea Nitrogen 13 mg/dL 7-18 [facility] ([facility]) Glucose, Fasting 94 mg/dL 70-100 [facility] ([facility]) Glomerular Filtration Rate Laboratory test result [facility] ([facility]) <content>Units are mL/min/1.73 m2</content>
<content></content>
<content>Chronic Kidney Disease Staging per NKF:</content>
<content></content>
<content>Stage I & II GFR >=60 Normal to Mildly Decreased</content>
<content>Stage III GFR 30- 59 Moderately Decreased</content>
<content>Stage IV GFR 15-29 Severely Decreased</content>
<content>Stage V GFR <15 Very Little GFR Left</content>
<content>ESRD GFR <15 on PHONE TECHNICIAN</content>
<content></content> Creatinine For GFR 0.65 mg/dL 0.55-1.30 [facility] ([facility]) Potassium Serum 3.6 meq/L 3.5-5.1 [facility] ([facility]) Chloride Level 107 meq/L 98-107 [facility] ([facility]) Sodium Level 140 meq/L 136-145 [facility] ([facility]) Anion Gap 6 meq/L 8-16 [facility] ([facility]) Carbon Dioxide Level 27 meq/L 21-32 [facility] ([facility]) Ast/Sgot 11 U/L 7-37 [facility] ([facility]) Calcium Level 9.1 mg/dL 8.5-10.1 [facility] ([facility]) Alt/SGPT 17 U/L 12-78 [facility] ([facility]) Total Protein 7.5 GM/DL 6.4-8.2 [facility] ([facility]) Bilirubin,Total 0.3 mg/dL 0.2-1.0 [facility] ([facility]) Alkaline Phosphatase 58 U/L 45-117 [facility] ([facility]) Albumin 3.8 GM/DL 3.2-5.2 [facility] ([facility]) Albumin/Globulin Ratio 1.0 1.2-2.2 [facility] ([facility]) ID Date Data Source [id number] 05/24/2020 03:34:00 PM EST [facility] ([facility]) Name Value Range Interpretation Code Description Data Frances rce(s) Supporting Document(s) Hemoglobin 12.0 g/dL 12.0-15.5 [facility] Red Blood Count 4.35 10 4.00-5.40 [facility] ([facility]) White Blood Count 6.9 10 4.0-10.0 [facility] ([facility]) Mean Corpuscular Volume 88.0 fl 80.0-96.0 [facility] ([facility]) Mean Corpuscular Hemoglobin 27.6 pg 27.0-33.0 ME DENT ([facility]) Hematocrit 38.3 % 36.0-47.0 [facility] ([facility]) Red Cell Distribution Width 16.3 % 11.5-14.5 ME DENT ([facility]) Mean Corpuscular HGB Conc 31.3 g/dL 32.0-36.5 MEDE NT ([facility]) Platelet Count, Automated 447 10 150-450 MEDE NT ([facility]) Lymph % 26.9 % 24.0-44.0 [facility]) [place] % 10.1 % 0.0-5.0 [facility] Neutrophils % 60.1 % 36.0-66.0 [facility] ([facility]) Eos % 0.3 % 0.0-3.0 [facility]) Baso % 0.9 % 0.0-1.0 [facility] Immature Granulocyte % 1.7 % 0-3.0 [facility] ([facility]) Nucleated Red Blood Cell % 0.0 % 0-0 MED ENT ([facility]) Neutrophils # 4.2 10 1.5-8.5 [facility] ([facility]) Lymph # 1.9 10 1.5-5.0 [facility]) [place] # 0.7 10 0.0-0.8 [facility]) Eos # 0.0 10 0.0-0.5 [facility] ([facility]) Baso # 0.1 10 0.0-0.2 [facility] ([facility]) ID Date Data Source [id number] 05/03/2020 10:24:00 AM EDT [facility] ([facility]) Name Value Range Interpretation Code Description Data Frances rce(s) Supporting Document(s) Glucose, Fasting 120 mg/dL 70-100 [facility] ([facility]) Creatinine For GFR 0.72 mg/dL 0.55-1.30 [facility] ([facility]) Glomerular Filtration Rate Laboratory test result [facility] ([facility]) <content>Units are mL/min/1.73 m2</content>
<content></content>
<content>Chronic Kidney Disease Staging per NKF:</content>
<content></content>
<content>Stage I & II GFR >=60 Normal to Mildly Decreased</content>
<content>Stage III GFR 30- 59 Moderately Decreased</content>
<content>Stage IV GFR 15-29 Severely Decreased</content>
<content>Stage V GFR <15 Very Little GFR Left</content>
<content>ESRD GFR <15 on PHONE TECHNICIAN</content>
<content></content> Blood Urea Nitrogen 16 mg/dL 7-18 [facility] ([facility]) Sodium Level 139 meq/L 136-145 [facility] ([facility]) Potassium Serum 3.9 meq/L 3.5-5.1 [facility] ([facility]) Carbon Dioxide Level 24 meq/L 21-32 [facility] ([facility]) Chloride Level 106 meq/L 98-107 [facility] ([facility]) Anion Gap 9 meq/L 8-16 [facility] ([facility]) Calcium Level 9.1 mg/dL 8.5-10.1 [facility] ([facility]) Alt/SGPT 25 U/L 12-78 [facility] ([facility]) Ast/Sgot 17 U/L 7-37 [facility] ([facility]) Bilirubin,Total 0.3 mg/dL 0.2-1.0 [facility] ([facility]) Alkaline Phosphatase 56 U/L 45-117 [facility] ([facility]) Albumin/Globulin Ratio 0.8 1.2-2.2 [facility] ([facility]) Albumin 3.5 GM/DL 3.2-5.2 [facility] ([facility]) Total Protein 7.7 GM/DL 6.4-8.2 [facility] ([facility]) ID Date Data Source [id number] 05/03/2020 10:24:00 AM EDT [facility] ([facility]) Name Value Range Interpretation Code Description Data Frances rce(s) Supporting Document(s) White Blood Count 5.7 10 4.0-10.0 [facility] ([facility]) Red Blood Count 4.46 10 4.00-5.40 [facility] ([facility]) Hematocrit 39.4 % 36.0-47.0 [facility] ([facility]) Mean Corpuscular Volume 88.3 fl 80.0-96.0 [facility] ([facility]) Hemoglobin 12.2 g/dL 12.0-15.5 [facility] ([facility]) Mean Corpuscular HGB Conc 31.0 g/dL 32.0-36.5 MEDE NT ([facility]) Mean Corpuscular Hemoglobin 27.4 pg 27.0-33.0 ME DENT ([facility]) Red Cell Distribution Width 16.4 % 11.5-14.5 ME DENT ([facility]) Platelet Count, Automated 405 10 150-450 MEDE NT ([facility]) Neutrophils % 54.8 % 36.0-66.0 [facility] ([facility]) Lymph % 31.5 % 24.0-44.0 [facility] ([facility]) Baso % 1.6 % 0.0-1.0 [facility] ([facility]) [place] % 8.9 % 0.0-5.0 [facility] Eos % 2.1 % 0.0-3.0 [facility] Immature Granulocyte % 1.1 % 0-3.0 [facility] ([facility]) Neutrophils # 3.1 10 1.5-8.5 [facility] ([facility]) Nucleated Red Blood Cell % 0.0 % 0-0 MED ENT ([facility]) [place] # 0.5 10 0.0-0.8 [facility]) Lymph # 1.8 10 1.5-5.0 [facility] Eos # 0.1 10 0.0-0.5 [facility] Baso # 0.1 10 0.0-0.2 [facility] ID Date Data Source [id number] 04/22/2020 12:45:00 PM EDT [facility] ([facility]) Name Value Range Interpretation Code Description Data Frances rce(s) Supporting Document(s) Coronavirus 2019 Nasopharygeal Laboratory test result [facility] This nucleic acid amplification test was developed and its performance characteristics determined by [facility]. Nucleic acid amplification tests include PCR and [...] detected) result in this assay. Performed at: [facility] [address] [id number] [employer] C[employer]: Julia Garcia MD, Phone: [phone] Not Detected ID Date Data Source [id number] 04/22/2020 12:45:00 PM EDT [facility] Name Value Range Interpretation Code Description Data Frances rce(s) Supporting Document(s) SARS coronavirus 2 RNA [facility] This lab was ordered by [facility] and reported by [facility]. ID Date Data Source [id number] 04/05/2020 08:50:00 AM EDT [facility] ([facility]) Name Value Range Interpretation Code Description Data Frances rce(s) Supporting Document(s) Glucose, Fasting 137 mg/dL 70-100 [facility] ([facility]) Blood Urea Nitrogen 16 mg/dL 7-18 [facility] ([facility]) Creatinine For GFR 0.70 mg/dL 0.55-1.30 [facility] ([facility]) Glomerular Filtration Rate Laboratory test result [facility] ([facility]) <content>Units are mL/min/1.73 m2</content>
<content></content>
<content>Chronic Kidney Disease Staging per NKF:</content>
<content></content>
<content>Stage I & II GFR >=60 Normal to Mildly Decreased</content>
<content>Stage III GFR 30- 59 Moderately Decreased</content>
<content>Stage IV GFR 15-29 Severely Decreased</content>
<content>Stage V GFR <15 Very Little GFR Left</content>
<content>ESRD GFR <15 on PHONE TECHNICIAN</content>
<content></content> Sodium Level 139 meq/L 136-145 [facility] ([facility]) Potassium Serum 3.9 meq/L 3.5-5.1 [facility] ([facility]) Chloride Level 109 meq/L 98-107 [facility] ([facility]) Carbon Dioxide Level 23 meq/L 21-32 [facility] ( [facility] Anion Gap 7 meq/L 8-16 [facility] ([facility]) Ast/Sgot 12 U/L 7-37 [facility] ([facility]) Calcium Level 8.8 mg/dL 8.5-10.1 [facility] ([facility]) Bilirubin,Total 0.3 mg/dL 0.2-1.0 [facility] ([facility]) Alkaline Phosphatase 63 U/L 45-117 [facility] ([facility]) Total Protein 7.8 GM/DL 6.4-8.2 [facility] ([facility]) Alt/SGPT 21 U/L 12-78 [facility] ([facility]) Albumin/Globulin Ratio 0.8 1.2-2.2 [facility] ([facility]) Albumin 3.4 GM/DL 3.2-5.2 [facility] ([facility]) ID Date Data Source [id number] 04/05/2020 08:50:00 AM EDT [facility] ([facility]) Name Value Range Interpretation Code Description Data Frances rce(s) Supporting Document(s) White Blood Count 5.4 10 4.0-10.0 [facility] ([facility]) Red Blood Count 4.52 10 4.00-5.40 [facility] ([facility]) Hemoglobin 12.7 g/dL 12.0-[facility].5 [facility] Hematocrit 40.0 % 36.0-47.0 [facility] ([facility]) Mean Corpuscular HGB Conc 31.8 g/dL 32.0-36.5 MEDE NT ([facility]) Mean Corpuscular Volume 88.5 fl 80.0-96.0 [facility] ([facility]) Mean Corpuscular Hemoglobin 28.1 pg 27.0-33.0 [facility] ([facility]) Red Cell Distribution Width 15.7 % 11.5-14.5 [facility] ([facility]) Platelet Count, Automated 329 10 150-450 MEDE NT ([facility]) Lymph % 12.1 % 24.0-44.0 [facility] ([facility]) Neutrophils % 84.4 % 36.0-66.0 [facility] ([facility]) [place] % 2.2 % 0.0-5.0 [facility] ([facility]) Baso % 0.4 % 0.0-1.0 [facility] ([facility]) Immature Granulocyte % 0.9 % 0-3.0 [facility] ([facility]) Eos % 0.0 % 0.0-3.0 [facility] ([facility]) Lymph # 0.7 10 1.5-5.0 [facility] ([facility]) Nucleated Red Blood Cell % 0.0 % 0-0 MED ENT ([facility]) Neutrophils # 4.5 10 1.5-8.5 [facility] ([facility]) [place] # 0.1 10 0.0-0.8 [facility] ([facility]) Baso # 0.0 10 0.0-0.2 [facility] ([facility]) Eos # 0.0 10 0.0-0.5 [facility] ([facility]) ID Date Data Source [id number] 03/29/2020 08:58:00 AM EDT [facility] ([facility]) Name Value Range Interpretation Code Description Data Frances rce(s) Supporting Document(s) Glucose, Fasting 104 mg/dL 70-100 [facility] ([facility]) Blood Urea Nitrogen 15 mg/dL 7-18 [facility] ([facility]) Sodium Level 140 meq/L 136-145 [facility] ([facility]) Creatinine For GFR 0.53 mg/dL 0.55-1.30 [facility] ([facility]) Glomerular Filtration Rate [facility] <content>Units are mL/min/1.73 m2</content>
<content></content>
<content>Chronic Kidney Disease Staging per NKF:</content>
<content></content>
<content>Stage I & II GFR >=60 Normal to Mildly Decreased</content>
<content>Stage III GFR 30- 59 Moderately Decreased</content>
<content>Stage IV GFR 15-29 Severely Decreased</content>
<content>Stage V GFR <15 Very Little GFR Left</content>
<content>ESRD GFR <15 on PHONE TECHNICIAN</content>
<content></content> Potassium Serum 3.7 meq/L 3.5-5.1 [facility] ([facility]) Chloride Level 108 meq/L 98-107 [facility] ([facility]) Carbon Dioxide Level 26 meq/L 21-32 [facility] ([facility]) Calcium Level 8.9 mg/dL 8.5-10.1 [facility] ([facility]) Anion Gap 6 meq/L 8-16 [facility] ([facility]) Alt/SGPT 19 U/L 12-78 [facility] ([facility]) Ast/Sgot 15 U/L 7-37 [facility] ([facility]) Alkaline Phosphatase 62 U/L 45-117 [facility] ([facility]) Total Protein 7.5 GM/DL 6.4-8.2 [facility] ([facility]) Bilirubin,Total 0.2 mg/dL 0.2-1.0 [facility] ([facility]) Albumin 3.1 GM/DL 3.2-5.2 [facility] ([facility]) Albumin/Globulin Ratio 0.7 1.2-2.2 [facility] ([facility]) ID Date Data Source [id number] 03/29/2020 08:58:00 AM EDT [facility] ([facility]) Name Value Range Interpretation Code Description Data Frances rce(s) Supporting Document(s) White Blood Count 8.4 10 4.0-10.0 [facility] ([facility]) Hemoglobin 11.7 g/dL 12.0-15.5 [facility] ([facility]) Red Blood Count 4.17 10 4.00-5.40 [facility] ([facility]) Mean Corpuscular Hemoglobin 28.1 pg 27.0-33.0 [facility] ([facility]) Hematocrit 36.5 % 36.0-47.0 [facility] Mean Corpuscular Volume 87.5 fl 80.0-96.0 [facility] ([facility]) Red Cell Distribution Width 15.7 % 11.5-14.5 [facility] ([facility]) Platelet Count, Automated 593 10 150-450 [facility] NT ([facility]) Mean Corpuscular HGB Conc 32.1 g/dL 32.0-36.5 [facility] NT ([facility]) Neutrophils % 64.5 % 36.0-66.0 [facility] ([facility]) [place] % 10.2 % 0.0-5.0 [facility] Lymph % 20.9 % 24.0-44.0 [facility]) Immature Granulocyte % 2.5 % 0-3.0 [facility] ([facility]) Baso % 1.1 % 0.0-1.0 [facility] Eos % 0.8 % 0.0-3.0 [facility]) Neutrophils # 5.4 10 1.5-8.5 [facility] ([facility]) Lymph # 1.8 10 1.5-5.0 [facility]) Nucleated Red Blood Cell % 0.0 % 0-0 [facility] ([facility]) Baso # 0.1 10 0.0-0.2 [facility]) [place] # 0.9 10 0.0-0.8 [facility] Eos # 0.1 10 0.0-0.5 [facility] ID Date Data Source [id number] 03/25/2020 10:46:00 AM EDT [facility] ([facility]) Name Value Range Interpretation Code Description Data Frances rce(s) Supporting Document(s) Erythrocytes [#/volume] in Blood by Automated count 4.48 x10*6/UL 4.2 0-6.30 [facility] ([facility]) Leukocytes [#/volume] in Blood by Automated count 12.6 x10*3/UL 4.1-1 0.9 [facility] ([facility]) Hemoglobin [Mass/volume] in Blood 12.5 g/dL 12.0-18.0 [facility] ([facility]) Hematocrit [Volume Fraction] of Blood by Automated count 36.6 % 3 7.0-51.0 [facility] ([facility]) MCHC 34.3 g/dL 31.0-38.0 [facility] ([facility]) MCV 81.7 fL 80.0-97.0 [facility] ([facility]) MCH 28.1 pg 26.0-32.0 [facility] ([facility]) Platelets [#/volume] in Blood by Automated count 678 x10*3/UL 140-440 [facility] ([facility]) NOTE: RESULT VERIFIED. MPV 8.4 FL 7.8-11.0 [facility] ([facility]) Erythrocyte distribution width [Ratio] by Automated count 15.0 % 11.6-13.7 [facility] ([facility]) Mid % 5.1 % 1.7-9.3 [facility] ([facility] Lymph % 13.6 % 10.0-58.5 [facility] ([facility]) Neut % 81.3 % 37.0-92.0 [facility] ([facility]) Lymph # 1.7 x10*3/UL 0.6-4.1 [facility] ([facility]) Mid # 0.6 x10*3/UL 0.1-0.6 [facility] ([facility]) Neut # 10.3 x10*3/UL 2.0-7.8 [facility] ([facility]) ID Date Data Source [id number] 03/25/2020 10:46:00 AM EDT [facility] ([facility]) Name Value Range Interpretation Code Description Data Frances rce(s) Supporting Document(s) Magnesium 2.2 mg/dL 1.8-2.4 [facility]) ID Date Data Source [id number] 03/25/2020 10:46:00 AM EDT [facility] ([facility]) Name Value Range Interpretation Code Description Data Frances rce(s) Supporting Document(s) Creatinine 0.6 mg/dL 0.6-1.3 [facility] Urea nitrogen [Mass/volume] in Serum or Plasma 16 mg/dL 7-18 [facility] ([facility]) Glucose [Mass/volume] in Serum or Plasma 100 mg/dL 74-99 [facility] ([facility]) 100-125 mg/dL PRE-DIABETES/FASTING >126 mg/dL DIABETES/FASTING Potassium [Moles/volume] in Serum or Plasma 4.7 meq/L 3.5-5.1 [facility] ([facility]) Sodium [Moles/volume] in Serum or Plasma 140 meq/L 136-145 [facility] ([facility]) Carbon dioxide, total [Moles/volume] in Serum or Plasma 26 meq/L 21 -32 [facility] ([facility]) Chloride [Moles/volume] in Serum or Plasma 103 meq/L 98-107 [facility] ([facility]) Calcium [Mass/volume] in Serum or Plasma 9.1 mg/dL 8.5-10.1 [facility] ([facility]) Glomerular filtration rate/1.73 sq M pre dicted among blacks [Volume Rate/Area] in Serum or Plasma by Creatinine-based formula (MDRD) Laboratory test result [facility] <content>CHRONIC KIDNEY DISEASE STAGING PER NKF</content>
<content></content>
<content>STAGE I & II GFR >= 60 NORMAL TO MILDLY DECREASED</content>
<content>STAGE III GFR 30-59 MODERATELY DECREASED</content>
<content>STAGE IV GFR 15-29 SEVERELY DECREASED</content>
<content>STAGE V GFR <15 VERY LITTLE GFR LEFT</content>
<content>ESRD GFR <15 ON PHONE TECHNICIAN</content>
<content></content> Glomerular filtration rate/1.73 sq M pre dicted among non-blacks [Volume Rate/Area] in Serum or Plasma by Creatinine-based formula (MDRD) Laboratory test result [facility] ([facility] ) ID Date Data Source [id number] 03/11/2020 12:00:00 PM EDT [facility] Name Value Range Interpretation Code Description Data Frances rce(s) Supporting Document(s) Prothrombin Time 16.8 s 11.8-14.0 [facility] ([facility]) Inr 1.33 [facility] THERAPUTIC HUMAN INR VALUES INDICATIONS NORMAL RANGES PROPHYLAXIS/TREATMENT OF: VENOUS THROMBOSIS 2.0-3.0 PULMONARY EMBOLISM 2.0-3.0 PREVENTION OF SYSTEMIC EMBOLISM FROM: TISSUE HEART VALVES 2.0-3.0 ACUTE MYOCARDIAL INFARCTION 2.0-3.0 VALVULAR HEART DISEASE 2.0-3.0 ATRIAL FIBRILLATION 2.0-3.0 MECHANICAL VALVES(HIGH RISK) 2.5-3.5 RECURRENT MYOCARDIAL INFARCTION 2.5-3.5 ID Date Data Source [id number] 03/11/2020 12:00:00 PM EDT [facility] Name Value Range Interpretation Code Description Data Frances rce(s) Supporting Document(s) White Blood Count 12.8 10 4.0-10.0 [facility] ([facility]) Hemoglobin 11.8 g/dL 12.0-15.5 [facility] ([facility]) Red Blood Count 4.16 10 4.00-5.40 [facility] ([facility]) Mean Corpuscular Volume 87.0 fl 80.0-96.0 [facility] ([facility]) Hematocrit 36.2 % 36.0-47.0 [facility] Mean Corpuscular Hemoglobin 28.4 pg 27.0-33.0 [facility] ([facility]) Red Cell Distribution Width 15.1 % 11.5-14.5 [facility] ([facility]) Mean Corpuscular HGB Conc 32.6 g/dL 32.0-36.5 [facility] ([facility]) Platelet Count, Automated 277 10 150-450 [facility] ([facility]) Nucleated Red Blood Cell % 0.0 % 0-0 [facility] ([facility]) ID Date Data Source [id number] 03/11/2020 12:00:00 PM EDT [facility] ([facility]) Name Value Range Interpretation Code Description Data Frances rce(s) Supporting Document(s) Lymphocytes 4 % 16-44 [facility] ([facility]) Neutrophils 96 % 28-66 [facility] ([facility]) Anisocytosis Laboratory test [facility] ID Date Data Source [id number] 03/11/2020 12:00:00 PM EDT [facility] ([facility]) Name Value Range Interpretation Code Description Data Frances rce(s) Supporting Document(s) Platelets [#/volume] in Blood by Estimate [facility] ID Date Data Source [id number] 03/11/2020 11:54:00 AM EDT [facility] ([facility]) Name Value Range Interpretation Code Description Data Frances rce(s) Supporting Document(s) Lactate [Mass/volume] in Serum or Plasma 1.4 mmol/L 0.4-2.0 [facility] ([facility]) Y/N query for Sepsis Lactate Rule: Y ID Date Data Source [id number] 03/11/2020 11:54:00 AM EDT [facility] ([facility]) Name Value Range Interpretation Code Description Data Frances rce(s) Supporting Document(s) CPK Creatine Phosphokinase 34 U/L 26-192 [facility] ([facility]) Troponin I Laboratory test result [facility] ([facility]) <content>Troponin I Reference Interval f or Siemens [place] LOCI:</content>
<content></content>
<content>99th Percentile= 0.00-0.045 ng/ml</content>
<content></content>
<content>Risk Stratification:</content>
<content><= 0.10 ng/ml Decreased Risk for Adverse Clinical</content>
<content>Events.</content>
<content>0.10-1.50 ng/ml Increased Risk for Adverse Clinical</content>
<content>Events. Evaluation of additional</content>
<content>criterion and/or repeat testing in 2-6</content>
<content>hours is suggested to rule out myocardial</content>
<content>damage.</content>
<content>>= 1.50 ng/ml Indicative of Myocardial Injury.</content>
<content></content> CK-MB Value Mass Laboratory test result [facility] ([facility]) MB/CK Relative Index 2.94 [facility] ([facility]) <content>DIAGNOSIS CRITERIA</content>
<content>MMB ng/ml Relative Index (RI)</content>
<content>NON-AMI < or = 5 N/A</content>
<content>LEE ZONE > 5 < or = 4</content>
<content>AMI > 5 > 4</content>
<content></content> ID Date Data Source [id number] 03/11/2020 11:54:00 AM EDT [facility] ([facility]) Name Value Range Interpretation Code Description Data Frances rce(s) Supporting Document(s) Ast/Sgot 9 U/L 7-37 [facility]) Alt/SGPT 23 U/L 12-78 [facility] ([facility]) Alkaline Phosphatase 68 U/L 45-117 [facility] ([facility]) Bilirubin,Total 0.6 mg/dL 0.2-1.0 [facility] ([facility]) Bilirubin,Direct 0.1 mg/dL 0.0-0.2 [facility] ([facility]) Total Protein 6.8 GM/DL 6.4-8.2 [facility] ([facility]) Albumin/Globulin Ratio 0.8 1.2-2.2 [facility] ([facility]) Albumin 3.1 GM/DL 3.2-5.2 [facility] ([place]) ID Date Data Source [id number] 03/11/2020 11:54:00 AM EDT [facility] ([facility]) Name Value Range Interpretation Code Description Data Frances rce(s) Supporting Document(s) Glucose, Fasting 113 mg/dL 70-100 [facility] ([facility]) Blood Urea Nitrogen 12 mg/dL 7-18 [facility] ([facility]) Creatinine For GFR 0.61 mg/dL 0.55-1.30 [facility] ([facility]) Sodium Level 139 meq/L 136-145 [facility] ([facility]) Glomerular Filtration Rate [facility] <content>Units are mL/min/1.73 m2</content>
<content></content>
<content>Chronic Kidney Disease Staging per NKF:</content>
<content></content>
<content>Stage I & II GFR >=60 Normal to Mildly Decreased</content>
<content>Stage III GFR 30- 59 Moderately Decreased</content>
<content>Stage IV GFR 15-29 Severely Decreased</content>
<content>Stage V GFR <15 Very Little GFR Left</content>
<content>ESRD GFR <15 on PHONE TECHNICIAN</content>
<content></content> Chloride Level 103 meq/L 98-107 [facility] ([facility]) Carbon Dioxide Level 28 meq/L 21-32 [facility] ([facility]) Potassium Serum 3.5 meq/L 3.5-5.1 [facility] ([facility]) Calcium Level 8.9 mg/dL 8.5-10.1 [facility] ([facility]) Anion Gap 8 meq/L 8-16 [facility]) ID Date Data Source [id number] 03/11/2020 11:54:00 AM EDT [facility] ([facility]) Name Value Range Interpretation Code Description Data Frances rce(s) Supporting Document(s) Lipoprotein lipase [Enzymatic activity/volume] in Serum or Plasm a 57 U/L 73-393 [facility] ([facility]) ID Date Data Source [id number] 03/08/2020 08:01:00 AM EDT [facility] ([facility]) Name Value Range Interpretation Code Description Data Frances rce(s) Supporting Document(s) Blood Urea Nitrogen 16 mg/dL 7-18 [facility] ([facility]) Glucose, Fasting 252 mg/dL 70-100 [facility] ([facility]) Glomerular Filtration Rate Laboratory test result [facility] ([facility]) <content>Units are mL/min/1.73 m2</content>
<content></content>
<content>Chronic Kidney Disease Staging per NKF:</content>
<content></content>
<content>Stage I & II GFR >=60 Normal to Mildly Decreased</content>
<content>Stage III GFR 30-59 Moderately Decreased</content>
<content>Stage IV GFR 15-29 Severely Decreased</content>
<content>Stage V GFR <15 Very Little GFR Left</content>
<content>ESRD GFR <15 on PHONE TECHNICIAN</content>
<content></content> Creatinine For GFR 0.76 mg/dL 0.55-1.30 [facility] ([facility]) Sodium Level 139 meq/L 136-145 [facility] ([facility]) Potassium Serum 3.8 meq/L 3.5-5.1 [facility] ([facility]) Carbon Dioxide Level 21 meq/L 21-32 [facility] ([facility]) Chloride Level 109 meq/L 98-107 [facility] ([facility]) Calcium Level 9.0 mg/dL 8.5-10.1 [facility] ([facility]) Anion Gap 9 meq/L 8-16 [facility] Ast/Sgot 16 U/L 7-37 [facility] Alt/SGPT 35 U/L 12-78 [facility] [facility]) Alkaline Phosphatase 72 U/L 45-117 [facility] ([facility]) Bilirubin,Total 0.2 mg/dL 0.2-1.0 [facility] ([facility]) Albumin 3.5 GM/DL 3.2-5.2 [facility] Total Protein 7.5 GM/DL 6.4-8.2 [facility] ([facility]) Albumin/Globulin Ratio 0.9 1.2-2.2 [facility] ([facility]) ID Date Data Source [id number] 03/08/2020 08:01:00 AM EDT [facility] ([facility]) Name Value Range Interpretation Code Description Data Frances rce(s) Supporting Document(s) Hemoglobin 12.4 g/dL 12.0-15.5 [facility] ([facility]) White Blood Count 19.9 10 4.0-10.0 [facility] ([facility]) Red Blood Count 4.27 10 4.00-5.40 [facility] ([facility]) Mean Corpuscular Volume 89.0 fl 80.0-96.0 [facility] ([facility]) Mean Corpuscular Hemoglobin 29.0 pg 27.0-33.0 [facility] ([facility]) Hematocrit 38.0 % 36.0-47.0 [facility] ([facility]) Mean Corpuscular HGB Conc 32.6 g/dL 32.0-36.5 [facility] ([facility]) Red Cell Distribution Width 14.6 % 11.5-14.5 [facility] ([facility]) Platelet Count, Automated 453 10 150-450 [facility] ([facility]) [place] % 4.3 % 0.0-5.0 [facility]) Eos % 0.0 % 0.0-3.0 [facility]) Neutrophils % 86.3 % 36.0-66.0 [facility] ([facility]) Lymph % 7.3 % 24.0-44.0 [facility]) Immature Granulocyte % 1.9 % 0-3.0 [facility] ([facility]) Baso % 0.2 % 0.0-1.0 [facility]) Neutrophils # 17.2 10 1.5-8.5 [facility] ([facility]) Lymph # 1.5 10 1.5-5.0 [facility] ([place]) Nucleated Red Blood Cell % 0.0 % 0-0 [facility] ([facility]) Weston # 0.9 10 0.0-0.8 [facility] ([facility]) Baso # 0.0 10 0.0-0.2 [facility] ([facility]) Eos # 0.0 10 0.0-0.5 [facility] ([facility]) ID Date Data Source [id number] 03/08/2020 06:24:00 AM EDT [facility] Name Value Range Interpretation Code Description Data Frances rce(s) Supporting Document(s) SARS coronavirus 2 RNA [facility] This lab was ordered by [facility] and reported by [facility]. ID Date Data Source [id number] 03/04/2020 02:15:00 PM EDT [facility] Name Value Range Interpretation Code Description Data Frances rce(s) Supporting Document(s) SARS coronavirus 2 RNA [facility] This lab was ordered by [facility] and reported by [facility]. ID Date Data Source [id number] 02/16/2020 09:00:00 AM EDT [facility] ([facility]) Name Value Range Interpretation Code Description Data Frances rce(s) Supporting Document(s) Blood Urea Nitrogen 17 mg/dL 7-18 [facility] ([facility]) Glucose, Fasting 197 mg/dL 70-100 [facility] ([facility]) Creatinine For GFR 0.85 mg/dL 0.55-1.30 [facility] ([facility]) Sodium Level 139 meq/L 136-145 [facility] ([facility]) Glomerular Filtration Rate Laboratory test result [facility] ([facility]) <content>Units are mL/min/1.73 m2</content>
<content></content>
<content>Chronic Kidney Disease Staging per NKF:</content>
<content></content>
<content>Stage I & II GFR >=60 Normal to Mildly Decreased</content>
<content>Stage III GFR 30-59 Moderately Decreased</content>
<content>Stage IV GFR 15-29 Severely Decreased</content>
<content>Stage V GFR <15 Very Little GFR Left</content>
<content>ESRD GFR <15 on PHONE TECHNICIAN</content>
<content></content> Potassium Serum 3.6 meq/L 3.5-5.1 [facility] ([facility]) Carbon Dioxide Level 24 meq/L 21-32 [facility] ([facility]) Chloride Level 108 meq/L 98-107 [facility] ([facility]) Alt/SGPT 26 U/L 12-78 [facility] [facility]) Anion Gap 7 meq/L 8-16 [facility] ([place] [facility]) Ast/Sgot 15 U/L 7-37 [facility] [facility]) Calcium Level 9.4 mg/dL 8.5-10.1 [facility] ([facility]) Bilirubin,Total 0.2 mg/dL 0.2-1.0 [facility] ([facility]) Alkaline Phosphatase 62 U/L 45-117 [facility] ([facility]) Total Protein 7.8 GM/DL 6.4-8.2 [facility] ([facility]) Albumin 4.0 GM/DL 3.2-5.2 [facility] ([facility]) Albumin/Globulin Ratio 1.1 1.2-2.2 [facility] ([facility]) ID Date Data Source [id number] 02/16/2020 09:00:00 AM EDT [facility] ([facility]) Name Value Range Interpretation Code Description Data Frances rce(s) Supporting Document(s) White Blood Count 16.7 10 4.0-10.0 [facility] ([facility]) Hemoglobin 13.3 g/dL 12.0-15.5 [facility] ([place] [facility]) Red Blood Count 4.65 10 4.00-5.40 [facility] ([facility]) Hematocrit 40.9 % 36.0-47.0 [facility] Mean Corpuscular Hemoglobin 28.6 pg 27.0-33.0 [facility] ([facility]) Mean Corpuscular HGB Conc 32.5 g/dL 32.0-36.5 [facility] ([facility]) Mean Corpuscular Volume 88.0 fl 80.0-96.0 [facility] ([facility]) Red Cell Distribution Width 13.5 % 11.5-14.5 [facility] ([facility]) Neutrophils % 88.0 % 36.0-66.0 [facility] ([facility]) Platelet Count, Automated 321 10 150-450 [facility] ([facility]) Lymph % 7.3 % 24.0-44.0 [facility]) Eos % 0.0 % 0.0-3.0 [facility]) [place] % 3.5 % 0.0-5.0 [facility]) Baso % 0.1 % 0.0-1.0 [facility] Nucleated Red Blood Cell % 0.0 % 0-0 [facility] ([facility]) Immature Granulocyte % 1.1 % 0-3.0 [facility] ([facility]) Lymph # 1.2 10 1.5-5.0 [facility]) Neutrophils # 14.7 10 1.5-8.5 [facility] ([facility]) Weston # 0.6 10 0.0-0.8 [facility]) Baso # 0.0 10 0.0-0.2 [facility]) Eos # 0.0 10 0.0-0.5 [facility]) ID Date Data Source [id number] 02/11/2020 11:00:00 AM EDT [facility] ([facility]) Name Value Range Interpretation Code Description Data Frances rce(s) Supporting Document(s) Blood Urea Nitrogen 13 mg/dL 7-18 [facility] ([facility]) Creatinine For GFR 0.64 mg/dL 0.55-1.30 [facility] ([facility]) Glucose, Fasting 106 mg/dL 70-100 [facility] ([facility]) Glomerular Filtration Rate Laboratory test result [facility] ([facility]) <content>Units are mL/min/1.73 m2</content>
<content></content>
<content>Chronic Kidney Disease Staging per NKF:</content>
<content></content>
<content>Stage I & II GFR >=60 Normal to Mildly Decreased</content>
<content>Stage III GFR 30-59 Moderately Decreased</content>
<content>Stage IV GFR 15-29 Severely Decreased</content>
<content>Stage V GFR <15 Very Little GFR Left</content>
<content>ESRD GFR <15 on PHONE TECHNICIAN</content>
<content></content> Sodium Level 140 meq/L 136-145 [facility] ([facility]) Chloride Level 110 meq/L 98-107 [facility] ([facility]) Carbon Dioxide Level 26 meq/L 21-32 [facility] ([facility]) Potassium Serum 3.7 meq/L 3.5-5.1 [facility] ([facility]) Ast/Sgot 18 U/L 7-37 [facility] ([facility]) Calcium Level 9.0 mg/dL 8.5-10.1 [facility] ([facility]) Anion Gap 4 meq/L 8-16 [facility] ([facility]) Alkaline Phosphatase 62 U/L 45-117 [facility] ([facility]) Alt/SGPT 30 U/L 12-78 [facility] ([facility]) Bilirubin,Total 0.5 mg/dL 0.2-1.0 [facility] ([facility]) Albumin/Globulin Ratio 1.2 1.2-2.2 [facility] ([facility]) Albumin 4.0 GM/DL 3.2-5.2 [facility] ([facility]) Total Protein 7.3 GM/DL 6.4-8.2 [facility] ([facility]) ID Date Data Source [id number] 02/11/2020 11:00:00 AM EDT [facility] ([facility]) Name Value Range Interpretation Code Description Data Frances rce(s) Supporting Document(s) Hemoglobin 13.7 g/dL 12.0-15.5 [facility] ([facility]) Red Blood Count 4.75 10 4.00-5.40 [facility] ([facility]) White Blood Count 5.9 10 4.0-10.0 [facility] ([facility]) Mean Corpuscular Hemoglobin 28.8 pg 27.0-33.0 [facility] ([facility]) Hematocrit 42.9 % 36.0-47.0 [facility] ([facility]) Mean Corpuscular Volume 90.3 fl 80.0-96.0 [facility] ([facility]) Mean Corpuscular HGB Conc 31.9 g/dL 32.0-36.5 [facility] ([facility]) Red Cell Distribution Width 13.4 % 11.5-14.5 [facility] ([facility]) Platelet Count, Automated 296 10 150-450 [facility] ([facility]) Lymph % 38.6 % 24.0-44.0 [facility]) Neutrophils % 48.4 % 36.0-66.0 [facility] ([facility]) Baso % 0.9 % 0.0-1.0 [facility]) Eos % 3.6 % 0.0-3.0 [facility]) [place] % 7.5 % 0.0-5.0 [facility] Nucleated Red Blood Cell % 0.0 % 0-0 [facility] ([facility]) Immature Granulocyte % 1.0 % 0-3.0 [facility] ([facility]) Neutrophils # 2.8 10 1.5-8.5 [facility] ([facility]) Lymph # 2.3 10 1.5-5.0 [facility] [place] # 0.4 10 0.0-0.8 [facility] Eos # 0.2 10 0.0-0.5 [facility] Baso # 0.1 10 0.0-0.2 [facility] ID Date Data Source [id number] 01/07/2020 10:29:00 AM EDT [facility] ([facility]) Name Value Range Interpretation Code Description Data Frances rce(s) Supporting Document(s) Blood Urea Nitrogen 17 mg/dL 7-18 [facility] ([facility]) Glucose, Fasting 90 mg/dL 70-100 [facility] ([facility]) Creatinine For GFR 0.67 mg/dL 0.55-1.30 [facility] ([facility]) Sodium Level 141 meq/L 136-145 [facility] ([facility]) Potassium Serum 4.1 meq/L 3.5-5.1 [facility] ([facility]) Glomerular Filtration Rate Laboratory test result [facility] ([facility]) <content>Units are mL/min/1.73 m2</content>
<content></content>
<content>Chronic Kidney Disease Staging per NKF:</content>
<content></content>
<content>Stage I & II GFR >=60 Normal to Mildly Decreased</content>
<content>Stage III GFR 30-59 Moderately Decreased</content>
<content>Stage IV GFR 15-29 Severely Decreased</content>
<content>Stage V GFR <15 Very Little GFR Left</content>
<content>ESRD GFR <15 on PHONE TECHNICIAN</content>
<content></content> Carbon Dioxide Level 25 meq/L 21-32 [facility] Chloride Level 109 meq/L 98-107 [facility] ([facility]) Anion Gap 7 meq/L 8-16 [facility] [facility] Calcium Level 8.7 mg/dL 8.5-10.1 [facility] ([facility]) Ast/Sgot 14 U/L 7-37 [facility] ([place] [facility]) Alt/SGPT 27 U/L 12-78 [facility] ([place] [facility]) Alkaline Phosphatase 57 U/L 45-117 [facility] ([facility]) Bilirubin,Total 0.3 mg/dL 0.2-1.0 [facility] ([facility]) Total Protein 6.9 GM/DL 6.4-8.2 [facility] ([facility]) Albumin 3.5 GM/DL 3.2-5.2 [facility] ([place] [facility]) Albumin/Globulin Ratio 1.0 1.2-2.2 [facility] ([facility]) ID Date Data Source [id number] 01/07/2020 10:29:00 AM EDT [facility] ([facility]) Name Value Range Interpretation Code Description Data Frances rce(s) Supporting Document(s) Prothrombin Time 12.7 s 11.8-14.0 [facility] ([facility]) Partial Thromboplastin Time 32.3 s 25.0-38.4 [facility] ([facility]) Inr 0.98 [facility] ([place] [facility]) THERAPUTIC HUMAN INR VALUES INDICATIONS NORMAL RANGES PROPHYLAXIS/TREATMENT OF: VENOUS THROMBOSIS 2.0-3.0 PULMONARY EMBOLISM 2.0-3.0 PREVENTION OF SYSTEMIC EMBOLISM FROM: TISSUE HEART VALVES 2.0-3.0 ACUTE MYOCARDIAL INFARCTION 2.0-3.0 VALVULAR HEART DISEASE 2.0-3.0 ATRIAL FIBRILLATION 2.0-3.0 MECHANICAL VALVES(HIGH RISK) 2.5-3.5 RECURRENT MYOCARDIAL INFARCTION 2.5-3.5 ID Date Data Source [id number] 01/07/2020 10:29:00 AM EDT [facility] ([facility]) Name Value Range Interpretation Code Description Data Frances rce(s) Supporting Document(s) White Blood Count 7.5 10 4.0-10.0 [facility] ([facility]) Hemoglobin 12.3 g/dL 12.0-15.5 [facility] Red Blood Count 4.27 10 4.00-5.40 [facility] ([facility] [facility]) Hematocrit 38.6 % 36.0-47.0 [facility] Mean Corpuscular Volume 90.4 fl 80.0-96.0 [facility] ([facility]) Mean Corpuscular Hemoglobin 28.8 pg 27.0-33.0 [facility] ([facility]) Red Cell Distribution Width 13.1 % 11.5-14.5 [facility] ([facility]) Platelet Count, Automated 364 10 150-450 [facility] ([facility]) Mean Corpuscular HGB Conc 31.9 g/dL 32.0-36.5 [facility] ([facility]) Neutrophils % 52.9 % 36.0-66.0 [facility] [facility]) [place] % 7.9 % 0.0-5.0 [facility] ([facility]) Lymph % 33.3 % 24.0-44.0 [facility] ([facility]) Baso % 1.1 % 0.0-1.0 [facility] ([facility]) Eos % 3.5 % 0.0-3.0 [facility] ([facility]) Neutrophils # 4.0 10 1.5-8.5 [facility] ([facility]) Immature Granulocyte % 1.3 % 0-3.0 [facility] ([facility]) Nucleated Red Blood Cell % 0.0 % 0-0 [facility] ([facility]) Lymph # 2.5 10 1.5-5.0 [facility] ([facility]) [place] # 0.6 10 0.0-0.8 [facility] ([facility]) Eos # 0.3 10 0.0-0.5 [facility] ([facility]) Baso # 0.1 10 0.0-0.2 [facility] ([facility]) ID Date Data Source [id number] 12/31/2019 04:30:11 PM EDT [facility] Name Value Range Interpretation Code Description Data Frances rce(s) Supporting Document(s) Operative Note [facility] PTSLHo9gAsSOAzIg64/WQIrnSZQoc5JtORzwMMw5CGiaEJOfP6GfXKK9pF1kOKT3ADcHNjHaQgRvOkZ5 lbm [file] cdPMXaGrljKXR4SPPnLhafL6DvDei+EX0uUXp+Da6Ur4SuuhU1zlQyPTyuHeSkWq5OOTOAI3SKLb== ID Date Data Source [id number] 12/31/2019 04:08:43 PM EDT [facility] Name Value Range Interpretation Code Description Data Frances rce(s) Supporting Document(s) Discharge Summary [facility] DRODYv6pRkBSKsDa63/JLLcrKKKmh5UkLBimNRt6YQheRVZfU0MoSSO1lU1sVEW6HMpMCtSyMbNcAuT4 lbm [file] AgICAgICAgICAgICAgICAgICAgICAgICAgICAgICAgICAgICAgICAgICAgICAgICAgICANCiAgICAgIC AgICAgICAgICAgICAgICAgICAgICAgICAgICAgICAg ICAgICAgICAgICAgICAgICAgICAgICAgICAgICAgICAgICAgICAgICAgICAgICAgICAgICAgICAgICAg ICANCiAgICAgICAgICAgICAgICAgICAgICAgICAgICAgICAgICAgICAgICAgICAgICAgICAgICAgICAg ICAgICAgICAgICAgICAgICAgICAgICAgICAgICAgIC AgICAgICAgICAgICANCiAgICAgICAgICAgICAgICAgICAgICAgICAgICAgICAgICAgICAgICAgICAgIC AgICAgICAgICAgICAgICAgICAgICAgICAgICAgICAgICAgICAgICAgICAgICAgICAgICAgICANCiAgIC AgICAgICAgICAgICAgICAgICAgICAgICAgICAgICAg ICAgICAgICAgICAgICAgICAgICAgICAgICAgICAgICAgICAgICAgICAgICAgICAgICAgICAgICAgICAg ICAgICANCiAgICAgICAgICAgICAgICAgICAgICAgICAgICAgICAgICAgICAgICAgICAgICAgICAgICAg ICAgICAgICAgICAgICAgICAgICAgICAgICAgICAgIC AgICAgICAgICAgICAgICANCiAgICAgICAgICAgICAgICAgICAgICAgICAgICAgICAgICAgICAgICAgIC AgICAgICAgICAgICAgICAgICAgICAgICAgICAgICAgICAgICAgICAgICAgICAgICAgICAgICAgICANCi AgICAgICAgICAgICAgICAgICAgICAgICAgICAgICAg ICAgICAgICAgICAgICAgICAgICAgICAgICAgICAgICAgICAgICAgICAgICAgICAgICAgICAgICAgICAg ICAgICAgICANCiAgICAgICAgICAgICAgICAgICAgICAgICAgICAgICAgICAgICAgICAgICAgICAgICAg ICAgICAgICAgICAgICAgICAgICAgICAgICAgICAgIC AgICAgICAgICAgICAgICAgICANCiAgICAgICAgICAgICAgICAgICAgICAgICAgICAgICAgICAgICAgIC AgICAgICAgICAgICAgICAgICAgICAgICAgICAgICAgICAgICAgICAgICAgICAgICAgICAgICAgICAgIC ANCjw/zBAmD2opoGVcgjD7J8jpZv0AJr2DPH6tp6Po RYZbPQljgiFiLnaOAgRaWNZnIhpKWfv5VDzcIT7GtJDrI4XtH3AxJLxqMS4MFXWsNCOzsYBqBIRpBXFd ZwI5LBPgSAkwND4LxAMcFFscWQAkIGTfWpEnURIkCZIpCPGfYZIfZYDZOM5GTiUdT4EhpP49KCLFVu5+ CObpcbPkVddYAzUbGSQeq6ZtYJi8NU1UODCjKkpbz6 YqQjLaJGAZJLvyZR5GQQZ9DOWjWAYaFu4EJNZsV270huTeSM9XHb8DToFpLJ2paz3FKdBbEKTkPykSJa m3DQhcSX7KiLTcSLpVkEMmcCXrP6ZyT8RiiOCgoKJavTIHPWwrPSNeEDBSGW77mmglVGZaQYGlQf4hYm 7pCSCoUZJqVhFcXIZMXJ9SJYXmHRKktAMrWHAnOEBV AO0QJQlxPOK3UGWrglFvtBEzSZuxDQ7UZDUsiuAiWdQjXWFNFSr+Uh6SVW2io2UvLExpCdNfNE2cur5S AOqMEgLeM5U6cFFtP3T0TWrqYx9RVGKjTSOqEqmpRSMSSIocJY0LOJ2ipiB3IS2XxJPnWTMyBMSezGAw SQe4J78jvHVeDBrcKM3BHWE+Chalino+Bh5ISEYjTQTiIG BzUuQlFXBFYyBdC2YyQ1OOg7EhX1QvLW00xKmzlrNxORrqPW2LIJ3wRAMpDOHHBG5LhVRzkK0doaTdGG YmIXOBWmCpZ26lcVIkASLrGPRqGUOwLp7HVHDkA0FrxtRhtCwxtdNlIGHaNCLAUC7JUIladuGyySJgwZ tyOL16fSvwLB3IQf6NYgNpQX7ofx7ZyBXjMo1LGNUr TZ9TFWZgBBEoPTMfVZB2RMZyStPlJFdmSFVzEFQuNRX7VHYyTPFuUD9AUeMwFFOxFud9OxXlIBYfILYd wu1QTSBpNJXqBVUgDrGrSYYgTXRfTDyrEIPnZRJjKSK5XTXlOLNkFY3BLuHeGSXtUNO5XQgaMTUhCCJi wi7URCQwKUZlSnDbJLBhNCOeGNCmCMpgKUHaSQW7Sg JfHPQzVJFvUA1CElVgGEFmBGZ8HZMvNQBzPAExwj3KHZHxNYAsPUWbIXFgTGWuYSUjKAocJPDdKPCpDr Z5TVExYYKmJQ1VViNkGJVsCBE1KMutYHFwBYAtvi1LBVMrPGKuMAieWjNoNLJhAKPeGKafBDXlXBNfHv fbZACuECOsYA5CPmAvZQOrUVX5SmGhULLaXCGxos9Z LCHvFITxUiJ6DbWoSBWmGGBbAUgpYKFnSMV9CHLfRTFhUHCcGZ4QKmZgQVRjONXlQTYmGSYcSUNnav5Z YIBcGZYwJANuRxSkWCAoNMSzJFisRTAjPWZ0WAYnNHIcNWMiAC5IGxPsMDBeSOE0TFteFAYqZDXqph3Q KGTzELMjABg9QgGnRAPhNPLbZWzcGURlUTN2PmC5FJ OiDOPyFR4KNiWnWJSbNxf1AUOcOIWwYALstm2XFSIkAPOeVis1ALIoOCRqWHTnRBlhQDHwORO4RPtyRW TaKKTpZS8RWyZaMGJyToxlHfseRNEzVBHabv0QAAQiMFPyBJG6MjKuNUMxKQHpVWjiYGXfHNT4TmjeMC PySDVbJB4YSqQfIMZqJtp7VSfvVMQcQWKalj2VWWYn GJYtIZm2OkAxYZNpJWOjQUsiPVAdRJRrEiB1VUDqIOGfWD3DNeMtORAmKjH4WMMyZQArGNQdom7DELRq SZNoMOQ6HgYfEOZcOWKjCTk5zfSkvYNoUVd9CZ3BY1YgtmOiBpQRAv8Ns579DROiMKHoIt5LD7iyCi8f BWQsTRVFAw4EAJj0JQOnPNFwGOUmBMtiNxG9LqpyXn C0R1TsI5ZgROKbJWW+KDpiLzT5UqJpXGZ3JGHeDag9XoPvAZyhMVAeLkG8VEBnOJ5sILWQQd7+DQpzdG MrdJlmZJDFUlKfCFB3UNjnVVMOUm0M ID Date Data Source [id number] 12/30/2019 08:17:26 PM EDT [facility] Name Value Range Interpretation Code Description Data Frances rce(s) Supporting Document(s) Progress Note [facility] PMBKFz4oSqJFCmWk46/NCFliKNNgh2UfYYexEMt6UDhtAEJaF3ClJSW7kZ3kQQQ2ZPtAXmRvFlClZiXc lbm UrHqtPVvUzUQJaHbmKHhJvWCrzFrdgvRHxTH2TwDB1NSKvA70zWEDjRLEgI7HmOFKeAEH+Wx0QYQDhuD OcEP4VLngQ4Bunn8l0JH1wqS3MGIGPMviUke8U5hRzqYoAkh1ylnB8JI6o8aOMLkpZm79/AcIcw7hBxF 6cu2Dwn/8K7Nluw0zecNRUfe/6AI0lxMSFoc/rr3HC bBwOfexEvH7SC5fml4dzZWYgsjn5TB0PtB2UcHYwdAtPIJaWjtRgdZzgXHmTscheQ+q/IsO/IVmXWw9z ODtMIr9aSNTYSvrpJwBjubFbuaABoI6zTH/UsHJdw1+UltXwrtFMRNLV0wf1EJfgZAVKwVYyKPg7YOnn ZXYZEYXqEUKMPEMCReFL0RqA0u8s3AYJPQ88RFRpRY [file] IbReBqWuRcRWYxSxEnNvHqFM3fNNQTRf4+XHqgwIBxtHxpSNGJVuB5VOEYEmPrNR8QSZi= ID Date Data Source [id number] 12/30/2019 06:56:55 PM EDT [facility] Name Value Range Interpretation Code Description Data Frances rce(s) Supporting Document(s) Progress Note [facility] BVNIMm9xDkPAFvOk12/OYEujFMAjh1ZkEDuzEGs4HDocQTPoG6PeNRA4dC8sXKW6WPxNQcAmKtQuMjNe lbm [file] FLZ2jFOhBc1KZPk5Zk7IZWKRF9NQWp== ID Date Data Source [id number] 12/30/2019 03:49:12 PM EDT [facility] Name Value Range Interpretation Code Description Data Frances rce(s) Supporting Document(s) [facility] AQWQZi2gEpGJXkFfv3OjZwDoDASiGQ9rrwe9U4F0rNMiY1CsfXQuv5mfU6GyI6AcUIBwMRPWHX6MmZTh jb2 [file] RmOjMW/GY1zG5tsyAe1ugZ+Anne Marie+viQ5kK4wUSk8+rc ghaAbQ2gIiE44sh0tmhSjvG6MyXxr6hBvV9nGcY78xz2gcySdaO2EbSdh8gFtY0qMbWt0Sj9hlrZuxE5 poRBkQ2Zg8AQW7xrr+WU2/pXeY0iFuSf5Zk6lwhPsnKTpA3GHTOUzOKXzyE4+uuC05NEdtIkq89JcwSk nsf5HN/btE2PsPJRgcmur3Ob53J4z92be9F1pfFxRh pbp5kCngIPSV3ugbjydjNXJntCrjy5EWKtrGerLhx9uuU72YgiATcJkRJgoA+4J00H0qErUG+uDbCNHS u1+rsd0Y+gQCBIDdJhhQcF2XsJmBqHJJM1Ozau0AU3tEpNthk8uChavAkkiExZydEvkIwwS8dKU1c3rv bG2FNu75vWJunhg77pOkl5hfQY7J/S+aevdaaOMpPx cO9fTRY+hFYGqcnQ9jRa7TcV+cjbHeVWU/sanaz+frCvjTu1YNw4h33MbukvI9q0SwvflmiEWP69CHN+RANDHAWA 7GSAV4/gzG+z2HnD+A5l7rWH4P72mjig4AkmohDIXa95jspf6kbb+16pin/6X1lY4ywae4bgrzD6POEO 86X7GYTR3djwJEAvbCfLLrvopcUan+Ds10T02flzrT Kmepd6/UlSb5UWWVXACr2nkndL89HVlq3ZYgS0CG+pZ0bOMrmoR4VY9QLyZnjQSxzl0CV/tftOYuyfs3 5Y0vMKqRDOVfd9OdfaXk5ln1znodusYubdkfGN322YZNd9+Fwk4UiH5Gxmoegl5D1D+bpu5XekcyXU7M aof9zDAR48hxt2WXy9Z5qmZ2uqSNEm7y84mm7T84oa sV92cvyVKK987h1IvXzQ+vljQSmql5EQZsidpn+/7m3d9xF0yq1Np2Fk3AsaDj5N/O6ntTGbzLAc7I7Y poHgWdZ8qG+Vun2Af2BGK2Cpq985YevbyB0CicVlHExk8JHtpE9x32xnY4yPsamA6mUX/HA8g0WYITqJ hDdE6ygn9kQky6aaA/c0kbscdIC+/mtw+iqXdfK/Lee [file] 24meqReRMZPbzGRLEe2nV2CXJvE1DDVbHgSMXYIZOVnBICEisjg8iUYfzFPRTLLHPAEOVPdGFKBQA8wh hCMIESGiRJQIfbDXnfMkQHjcaxwPDP+NY/PEbm+bJ3 xbXTlfOM5HEu7d3Ye7gB2JfnA+sXllJ58KpIpYAyXX9hZmNR75dupr3zI0hXRgGOuZ5/HUMIDIFIER OPERATOR+i39hU/aE t97T/YM/GV7+M6Qc6kXF05W+T+zmv/xjG41Jj7ZVJwsD1DU5iDpij+kZXAZ0gog9xDv+K3iDcRePCHNq JaudAW0SSDRgfSO+oOW7mewnI9vQ6vZGlAiJFVsTSi mIwQ5X64oWphlVlgIH1SirCULCsUPQ8xtzpr9sDlHYYs3gWsYYKCAwov4FhhaVAdANBxIyv6bRTtZYeQ jCBALp0DZIZmrqKMezDAQBgzgRoucieHPkaRJrmgAZWRAUKFuImz5hZAUGNnFo2VWLSCNIOP6XqhwFN4 sSPlVmNHKB80NioWGe56OyFHVroAQFOh3mq2Y3Cue6 jFPdMvl2v6N9+BiBA5+jW4oxWq5UJ+qK7uVXBT1LlLSxx4Q+1MYNEJWY8fRYIDMvFLMPTJZNKSZJoykg A33h1DnDYE+qXmo5Klo6Qwf7Oaq4Fj0MHrR/Un4GCChAlXYmlUbK3wkLqRSNnczF40BdRGUrQ1I+O6s3 Cu9ON57UXGRDUbAyeESbkFsAlUMvAMgzaQlR+EPhD6 XGgSyF93A2iJkq20Z3FlXeJ/NFZ8GMBDFApHpoKcF0jfioQHu52uRzZWIDIeCrWXI43fteMYmzcK+IEp cqFwPQ2pZFORA7hO+UJMgFncXYMKCLa9pPDLvp9y5eSsNOXPBgtE72LwyQjmiVVGAUjIKkkgsF6DoZqK HVLGANTKPAkGVUFtTpKBBZVuXn5hh7Ioy6Enc8MKnj N7bxXTLt73csV6slBVTa62lgH3taDV0Rbj1SDBV42yXJ8n0WTBH10lQS6s4ZVHU5JkZW9J1YXGL5JlSP 3V8HXkonaV05eWHnVSYHVknuYXyFZixNAYrO3bJCNxnWeXOyqixkZhLUe3kpAQ7HCrAVANoQuRMtOZkb bEShsIPdSFH94Mwo68zkbgegFunvC0v+ItCBEhokSU oSSyvKGd2C012gvRZCE7ak+xB+dY9hn/x+uQfEWwX3T7cXvktJlbEIeKJaQVXlgEPK+0QizNCmuuVlhz cR7PoAcQ/t7geZBa7hrcwYys+HoNqvvWSAO1Vhx056kZZUOK2BQ1bmCriCuZRERCCZpA198+wQd+GREj tpqYA5rwDnGDjuJee4Y21l/sS/II3qgFza16M8W3bx 91v+i7a0FldR/nF64+7/6KH0i/gciJOawT+++dvQ/lr/xU0XKbyq15oXO3XeeZnq1LvJz/Nfuh6/zCbt xayN8I6no2K+2hhnn9ELkNnOmomFa+d9Bcz6vrf35OnUqw8S5J2PW5s7TLL/RzFk+M3TXX+wc6TXGS01 /wPOmly0qGnIs/by42LhrKP0t9VJVyLa/E+gj/jh90 HoAdS+vj/Iil+H9e0xKeyp850e5vdCBzhPvkqCo567mKpZSWlR39SA1mR118D8cRpTsgsrgt5v3q8+gD /40+oUlNLQYXKEvPEeXKYm7v4PbCpceWbDY0mOaoaJuLNDLSBJOVtkorgngKZ+JEgkgQwX+e46PhCrsd G/c5+wOLDwjZ8EOjjT+ICBEhokSUyCCCPVm+1527zz n+G32vOz/C+w27e8wfY+KK7heo499tie18RwMQKrR9sLe5dDmmu7Zgy1Ti8cn90jy05xeVZwBHTRiC+m 64yzFWW9VasTa1US3eqEE65Hs/gzMcHpNIEcH+A0/sP/P8dRiKug5ma1nOOzcdEKNrUOzGAiuNfUkPKt LFcjnQFLYOuPSNIMqI3omPSVBIKJCWd/DmibeAPRg+ sQfDN0/kG2BvumGFTRHltMyZ3cy+sRfHJ/bi+Fwa3FrFnPPi7Q/kE/dEzGAAfI7cYrVpbiahKAs99tq+ 495JpXsyORnGZ2RxNPIEMCQaVfsRBcUIK7LkMIJavjqUnGPf0dA7dUCIzlVa4Uo+kf8xav67x8+9xvV1 +aefvQby+0Rin4blX8Hm0oCdHa5Q09cxczWcYwjhh+ U8l/SzypenrFhGhBdgs8F2GukybOupwFgPxNvhl+S1Zo6i3PblalpacLbsb+T8Hi4z8KwknyyO01N0vj bP0+J23qiFt+qo8hluhsqF22D1qnjcpIVlMlsyzF6C98b5kyvkoGCrJhvdtU71ws9M+1pwrbgeuLbn+r iswIAQ84KA/UowbBIKXsxNT8jlbjCPf8xn5adytIGm +E7cjuuu35Lkd7n5fA2bynh8R/J31Pz1Pt/QO/AChag9UpK9o67/gbhs30m6NHfoD9/s1auv3/W60pms w0xjJ+avV2jFEkH+yfEIhhrqsQW4oyO0q4eTd+c96xjT/Ghs4e5537Rj1xL4xgCMbN2hCQOuVr/33Tyt /b44cmzCmp3jU8nZtrmbdUB49Sh200Updj3ld0v47B X5bgGm4+JO0mZbap2TjeYH/tx491ldcOqjY2S+OrR03/O2T5gaWB7hi91Y6uLvUaBhR/llAS5wzFZa0Y Ryur45Xgm3QAghZthnb7blr5371eXxmdQwm5BOz8lt51afGKetkK5zyo5O8a5D01BjL3wo73tNa0ipUn 8z/Z2l0El2Ek1AM7KA1Xv4Rn+pn7SQ4OY6eb/XL+hh b2Ubh96Tdm74Arr03Lxs10Lzl96YwK67XzI44QYE07EQOr/v3m36fjHoMwG2dT5iL+zB3HI0d59wd+gd +oA+oE/kW6l253S8BvRwoK102m732Ex/dc0Ju74Ft8sk2pD8q9l0z2LVDqB6PK44K3HefZ+6+2Mue+9r 6AOfX/t4kLWz9Z/oJ/GYpL52eR5sRj/QC/QKvUI/oB /Ka07o3Px6Xs6cV8fRFiMjV+zp5VH30Rdzo4Vycq7Ctkj5Ffuv8Bisc1Utvv1v45lQT4nBQzFC394yE9 tuOT4eDhUjpIcJ8rxdrMQai0IE8FcV3CN9dB7fY0XI8A54g77mc+gD+oA+oU/oJ/QT+uVe6awiLddfhU rctc4DSD/Sza/6ekA/tOokNSfB9yN//EbJ5ahxDpuf vOvoz1AkawR+yc31hr9sy28a4Kn3J/oMoHMu7Zc9Cm6h4VA+zZc3GiuP7rauRuf+0Pi08FdJ/O9W6Izn PQ+435C4QIOzS3vsCEippT6S1VsR5qJ9Y+zd/KqvJ/TztJPNr+7ro9/47h8CSnZI6LGtXn0X4B2T1sgR yy5s5wEkT2/oyaeI1ahj+oQ+oZ/QT+gL+jr6za/ua+ lem3G7v23i+AWBLhq0pauxU+qHb+drZ02n3o/xVje/uq+hT+gT+wv5NHid5heKvwVnMpHjE+834O8H7p bsDdgbsDfQngPtOdCeA+19CS7WjjmWgRGda7F+G+i/SKmJ8hzzGcaszRrfb7HipIjHuI+T6aj70M6tt0 /qLJqgH07+ehx2gwHaU6wkmo1v7Eh2Kjswffh9puFj 80Bu57BTbV0I0/pVx719nch6Klusi48cvkXlcsnQY+571suD6x9ogA90eEuEJGtvyeUi8Gs90eJAqe6u P3tWbY5gwY61NKyIK5H/ft+wwEkpjl3gcxnFPp8c/Op+z8JzX/b29eJX/ZnFr/n4aS02uK+3sa/9nquu Llp4I1OEd/P7dZ48Tfdo1Shg/Ku7pm1wta7h7P/Nr/ o6oA/oE/qEHv0X/EqbX/X1ox/XmS+Q35WobTorIUjFnjS/rRnzHEbI2rCO9FA1yG2DH+V3nTSvcsPTDJ 1wygXuqy0PqrV0UvhA8LrrL0TkfL8XqXB3sdU+T8weTrTw0IJRCA/EBcY0Jqe9m4pvcJqeR7/Nr/paHz 4/Nr/q4sJ9tU1jU+gdeoc+oA/oE/qE/gwPu0500IMN /jlTshdengEy9JE0xU3yO+yA2MM9o29uv+gd+oA+oD/bbdF7oHg2uv/9VnCTbY215ee9DyVKiOCf7Pd9 A/tIuSFe1Pe3Oo0HL6Xu0HWQKC/X3m6ibb5Yt2/v2269gntDfl/ua+lWak3MW4ezJ/l14Wg5Jg/QO/QB zHRu5DE/Ovqvo/86+q+j/zqBw0L9eafXPU2p2FcD/G zTGq5hdmJ+ObFeHabMPT3l1ZvS/IxWDv2sjwW+UiPhTbvFJC1a1QfC/ZtZDl5lwcB+GSQ5SxcG6TqsC3 Tilx5WzEm7D/Zk3Q8Ha2M6AG/C3oS9E/RI6Yyd97D9G/ZY6Dws69U3C/BY8Xxw66D8L/ZH1Fri17Y9V/ JY2Sqh18N5HGjI7zpsQbcuwNmho7Yktl1Hapq0Ewcz M28bfcg/fjU0jL7ixv8sK1Lqv5KC+Clinton/tevMf+65pXwvKVbDQpQm6G/iENn0eRjorgPvLt/QB/QJfUI/ oZ/QF/WnvgWt4c4unNkPZVox/L4m5/l2SkiA4OxdifSqxuAWaDUs1Ka8WC7Te9odyaCMzmZHh7sJluT0 8rg3wf8oa17TcsD3JsvY+qCpQW/QO/UKYADZcQKI0D aXQhvtY7w3sSW+LHtfXwZWxseYIH1fY/aOE6+zgfa8+VX29Uu/8skq73lU8b975roIsQsafM1e2SKLmn bn66SdVXlYe1gHoqCCk5/575ov2+KGi47N4nRswyhbPXxOfe7Bzd1WzM0Yxr1n2TYAaIEdfKC1s9l6C/ oxana/Wa//Lq1ridak+uQyTvfsx9/fKpW6XukQ+aHb6x zo+MXZJqHR/eFcj3NuO895y/+3fs1/72u/80yVjYKhA24qOd5HA8lGpg7kuuWJ2gpE+vrhP+Zn fmSO/ov4lSF+ZYhfmZ/6aUlBN5Ya1Ir9gC6EC8Ux+a+GSrs8tRZuIlGEAydObhJVB91v4KiWmxDtHoZ/ OuOwN41h2QyYbdHnHfM/FaTvQ64x7NhGhkQsZzI/Mv SnG30q8NpBgaKcGkQ/LkKhJ50c1TaDqjZnDiP/SxHgI10v7RzPk44lomRWhF48E3xS6Ba7B24jgm091n ktX0k299k6FUXqR/npVSruI74k83n4lTk8gkjI2rh1MzPAbU46tQwoxK8D0dV9KY/Qo//HoV1Hd1Tc+b 71+qDsaz/VSH2Lx1Ui9YF7HD2Gp+oAcx44fM5N2RD4 QK/QK/QD+gG9QW/QO/XJjBLb1Oz7B44h5/l9/Tq/r18F/wh6Vw9c24ZYT6OY7Ki0Xb7CV8+6r6E/8SsH v3I5/dfl9F+XgD6gT+gT+io6bZ35AcUpZHaWal1t/UjJsqv2krT+6Hr4s+opt52VxMY/+LPr4c+uAX1A r8Zn6UC6AU8Gq/dac6SilZjNg/vTteWz9IXKG/Swd8 RcGHwK5H3zi/sa+oA+oE/oE/oJ/YS+oD/sQ3n5vIH80BB+6FgfdKwPOtYHHeuDjvVBx/ovB95OoW4oWb oZ8bmaNbaM6JUS+kIx7KHCv1DCRl/NTkqEvtXsk07Tmf85Cks43Cac64Idl38UaX54HvH6mx/H7+uw19 RvY63e5L1n1Hm8ym/8JkHZ2SN5dZ2IQ2A59H84q45a D+gD+oQ+oZ/Qn/2xHmd/rMfZH+szF46A9Qb2Qi6hRdj+vsYePMqYl832+ZWw6VurB/2gEfAW7Kx3Ei/x GfzKEb/tGPo8qHZ6G2XxkeT05M7g8gUWjUJeojI5N5TlfbN21B2f8sULg61udrXjqyE2E9WlxwF15S2m +m/W9iM7RFfV8mxsNyw3+gMfQ4P4nOoWnurfX406q1 9+Nbd+9Vl0rmyfrj71ff67VuYe52QmAvsP79n+a/Reagan/q1/2c1bud71scE6b+B9cHY/Krwns8MKC2Jze Ok0zgoroC/NNrEzA98x4bhhTvBf8/4wuW37wrfK254qM6Mm+4Z11k/Cuy/Cuy/OdIbZWgsemGY1db2sp yLX+923Ie1bs+XQ/b8t6/9+Mkf4m7k2+d9ZK//bv1Z /p78pZWWhvLmg6WJp4F90pew+GRg/9WIXxU7GYSpEjbRiB4D+FMQEnZ1SEG/VWD/VWD/VWD/VYBfBfZf WpPjBcQlSgFcWjOpRzTeSsMhNsYmJoLpeBn4N/oJfUF/lgxAU22RFUi1MJ+EuBrmcHA6F/TS3Dqa94R1 A/OE0Rl7S7A5V7P6O8G2F1R3NbFiO+ZPQVTc5cz7w2 8D+9sD+9sD+9sD+9sD+9sD+9sD+9sD+9sD+8vN2ocB/vbA/vbA/tjw393FbrC/g79cNqir8CWxmn60Ij yxuHg6Dm7Tk1LI3Fn7Vc6W84O01TJ0WU/QJ/TdlGG6mZcVq5ay/UpYJ397KSXJNaTL2GT8sF7PN8D46B 24k35cA+gD+oQ+zLi7iiF5Vzh8Q88t7pxJ6fvI/L55 0yjQZ49CvhJN7Ti7zX/gA7E2NKV+ZOuvXdDScrxOIH8Iqf6u3M+J/gt+OeOFHc31TEahxaRPw06c1Lm6 A/iNdELo0Op8Hn0VL3Xa7Xo1iG5UY0Wc+UIU+KPs9MAnkr3Gfzd4EabKg5mMdXR0C/EI1S4Tw+NXi5vF jl/t58YA7Df9Ap2TB+V13sg0NwXS9CD6Lj/QD+gH9A a9Qe/QO/ERrSLv3Ej1E/eDyDXTmrG22ukF6es637g8CtJNdQK/oB/QG/EqN0ZbiG0FrOM1OsJL3DTKN7 BXYO/mV/sdNr+6adssT6/Z/Oq+hl6hV+dH0ZU6q96bx+gd+oA+oE/oE/oJ/YS+oK+j3/mwqpJr0b2UF0 VdbT3Lf+9Aex6n/+Y4/WgMwiviMKE2BID7XN/QJ/Rn OomLEeGiFyzJmQ5kyPkc6E+O0etbt2k3pZvOQciO9hyOaw5n0vIhEb5Q4W8X9jjJzc4c0fNlMg4Z0E1X /gzBrk3274Plj81WdC60EfR52vUv1y/c/Jc1zvnlE3/Xg738mhI/1zwx/az/9bVSh93rv5/t1Ea5+JWu eVwufnVfr/lvf2ad/96ewGa7fl6E+R7rpWsI3Ppfmv 7Pedhc/GqvsWbs/c/7Pmv+2/smW388q/xcOz6/5r/7Ly6885ir7/DJDLTnOPOFBL/GERdjnqScrA67U2 /a8+Axel/Gqv+Gps0z7y/Or+zDn/l7hdpq9yZ16lgXvpzfy+yYszF0ywcgJO/pvn/zfz/H2dOsBMhFH/oZ /QF/SHb+RE/03G8CF4ET/QK/QD+nY5kxzuijF/SvCr BB0F8FrRs5ueakW/ZpUwAY2C6HaNp8usoqI/MdPuVA0Q8DtJb0tnukG/IpFyVU9W0RjUv1iOwUP1H/YW 2N7XW8O4rz7I2zo5On05y0TxYP9UfHNeiH/BgZk2On0vGkz+Oa8z35/Xme/SK2HF5ZL0Tn2WlaB/84Up X13jnI5t1hvpiU5dts9WW/uvJvZfTRnQG/GFnSKa6H r7LJ7Ah9SH1Oq0Kc5XB6848/tTz/r+VIFeoFfoFfoB/YDeoDfoHXqHPqCHvdh/NbH/amL/1cT+q4n9Vx D9nvu0Y77tk3rKhvXRyo+aR9w1NepipeYg/OBE/KkojrCTf5cAP5vfU7Hj/qlM6y0lLRERh5kk+MYcBf 5zT8QLlMTPD50S9EV7eF5bG6YT4G05K9+fza/6GvrD n+tqW8Ibl5690brzewA/oS/o6+v5z7zde/77k7ugmIftJvhL/YDeoD/jdvwkkxMzlHs7TnQs9Oa5wY8H X9Cf+cKMM1+YnCTh3Xo2Vn6HV5Sc9Cy8vPvfv4TxfH1AqmZ4WqyO0WlvB2MmtM8rd1y+T/y+vb118nja ft/W07u3ySO/b+F86tzlma65ab1Jt5q0hh/Rnje/qv 35eeEa+oL+rB/Nza/ua+pKuoiW4pqyfg7iVACkbO8lZ/JoJkmn1U564Nao01L9x5/1/fH7Nr/rgbnL8J cT/Destin+IgNfjO8MfNb7Xifjf8Vc/EMHLz9sTZI0/j0606PvTO8d2wi4/pec5Jr6PJg4dg9/ejrOvPBui [file] 5LrWmhYNK2Uz9DbmHpODGzUZNHMb7Zk768BXObLLXCYry+YdwwyZCzwUyyRKZMUqK7VkXPZZZKG4U= ID Date Data Source [id number] 12/31/2019 11:44:00 AM EDT [facility] Surgical Pathology ReportName: HERNANDEZ SALGUERORKatty: [id number] Number: [id number] Date: 12/30/2019 00:03Received Date: 12/30/2019 09:14Physician(s): HUMPHREY RAMOS GUILLERMOSpecimen(s) ReceivedA: Right breast implantB: Skin right breast debridementC: Right breast capsuleClinical HistoryMH 550 cc textured [id number], infection. History of breast cancer andinfection.DiagnosisA) IMPLANT, RIGHT BREAST, REMOVAL: DRIER TAKE OFF TENDER (GROSS ONLY)./pwsB) SKIN, RIGHT BREAST, DEBRIDEMENT: SKIN WITH MILD CHRONIC PERIVASCULARINFLAMMATION, AND GRANULATION TISSUE WITH MILD ACUTE AND CHRONI CINFLAMMATION.C) BREAST CAPSULE, RIGHT, EXCISION: GRANULATION TISSUE WITH MODERATEACUTE AND CHRONIC INFLAMMATION AND NECROSIS. Electronically Signed By Mary Cope M.D., Attending Pathologist12/31/2019 11:44:33Processed at [facility] Pathology [facility], [address] [place] [address]. Unless 'gross-only' is specified, the finaldiagnosis is based on a microscopic examination of retail representative sectionsof tissue.Gross DescriptionThe specimen is received in three parts.Part A is received fresh labeled with the patient's name "Vane" and "right breast implant". It consists of a 91.9 gram, 14.3x 11.0 x 2.5 cm discoid, white, transparent breast implant which displaysa 2.5 cm linear defect. The specimen is coated in pink-gale, opaquemucoid fluid and is inscribed with "MENTOR [id number] MH 550 cc". Thespecimen is devoid of contents. Gross only. No blocks are submitted. Part B is received in formalin labeled with the patient's name "Vane" and "skin right breast debridement". It consists of a 2.5 x2.0 x 0.8 cm aggregate of unoriented, irregular, lancaster-gale, finely granularskin fragments. No discrete lesions are appreciated. Representativesections are submitted in one cassette. Part C is received in formalin labeled with the patient's name "Vane" and "right breast capsule". It consists of a 6.5 x 4.5 x 2.0cm aggregate of irregular, red-brown clotted blood fragments andirregular, pink-gale, dusky rubbery tissue fragments. No discrete lesionsare appreciated. Event Management Consultant sections are submitted in one cassette. CTC/pws This report may include one or more immunohistochemical stain results thatuse analyte specific reagents. All positive and negative controls havebeen reviewed by the attending pathologist and are satisfactory. The testswere developed and their performance characteristics determined by [facility] Pathology department. They have not been cleared or approved by the USFood and Drug Administration. The FDA has determined that such clearanceor approval is not necessary. Name Value Range Interpretation Code Description Data Frances rce(s) Supporting Document(s) ID Date Data Source [id number] 01/02/2020 11:59:39 AM [facility] Service Cmnt XXX-Imp : RIGHT BREAST WOUN DGram Stn XXX : 2+WBC'S Seen.No organisms seenMicroorganism XXX Cult : No growth 3 days Name Value Range Interpretation Code Description Data Frances rce(s) Supporting Document(s) ID Date Data Source [id number] 01/02/2020 11:59:39 AM [facility] Service Cmnt XXX-Imp : RIGHT BREAST WOUN DGram Stn XXX : 1+WBC'S Seen.No organisms seenMicroorganism XXX Cult : No growth 3 days Name Value Range Interpretation Code Description Data Frances rce(s) Supporting Document(s) ID Date Data Source [id number] 12/29/2019 07:05:47 PM [facility] Name Value Range Interpretation Code Description Data Frances rce(s) Supporting Document(s) History and Physical [facility] BWPKAc6sOcPZNcNv74/NJNkjWGAaa2DiENkwOUd2GIjfPQErW8HnILT0dA3qKZR8IQbNPlPkDhAuQuQx lbm UcVnfPVuArXVBbXwzEXkQzDIbvQejrzUFuWE5ZkSO0FTUvD61sHMFqNJIkG0CqQFD2YZO+An3YLIYfzY LwZI5DOhcN8Hyje6j6TI6oeG0GWNQSPa7Lzwia84SogXzckdWUZfdyRtIvi4MoErWHqOr6jeIT8dDxMe wuF1ndIiGTMQ+1I3xBi2AOsm/1SB9noCNEkz/rj5Fg ZDgnP/3Lbgrtkyb1S99RwDBUxZp9WxvRh/0c4W5PtwnCUKxnJMsFSaYSHptBIDWY2pQCpvV8q4toWVPP cFZ3z5TyF9mtyL4Nu8UTRFfmM+qPwbcySfS3PbJBvDhgedeBwOEgSINTOIPR3TLhANwnKyfM4VMdEFQ7 XuHabGAIkEVUWKBIELWIeGGOMIA8raWkGlF9524t9f [file] XCK7UC3rNISXJm9+QHrzgGNawNctBUOHCsP0PeTXDlVtDI8KFUb= ID Date Data Source [id number] 12/29/2019 04:01:24 PM T [facility] Name Value Range Interpretation Code Description Data Frances rce(s) Supporting Document(s) Leukocytes [#/volume] in Blood by Automated count 9.4 10*3/uL 4-10 [facility] Erythrocytes [#/volume] in Blood by Automated count 4.15 10*6/uL 4.1- 5.3 [facility] Hemoglobin [Mass/volume] in Blood 12.2 g/dL 11.5-15.5 [facility] Hematocrit [Volume Fraction] of Blood by Automated count 36.0 % 3 6-45 [facility] Erythrocyte mean corpuscular volume [Entitic volume] by Auto mated count 87.0 fL 80-96 [facility] Erythrocyte mean corpuscular hemoglobin [Entitic mass] by Automated count 29.5 pg 27-33 [facility] Erythrocyte mean corpuscular hemoglobin concentration [Mass/volume] by Automated count 33.9 g/dL 32.0-36.0 [facility] Erythrocyte distribution width [Ratio] by Automated count 13.4 % 11.5-14.5 [facility] Platelets [#/volume] in Blood by Automated count 502 10*3/uL 150-400 H [facility] Differential cell count method - Blood [facility] Neutrophils/100 leukocytes in Blood by Automated count 64 % [facility] Lymphocytes/100 leukocytes in Blood by Automated count 22 % [facility] Monocytes/100 leukocytes in Blood by Automated count 8 % [facility] Eosinophils/100 leukocytes in Blood by Automated count 5 % [facility] Basophils/100 leukocytes in Blood by Automated count 1 % [facility] Neutrophils [#/volume] in Blood by Automated count 6.06 10*3/uL 1.8-7 .0 [facility] Lymphocytes [#/volume] in Blood by Automated count 2.04 10*3/uL 1.2-4 .0 [facility] Monocytes [#/volume] in Blood by Automated count 0.77 10*3/uL 0-0.8 [facility] Eosinophils [#/volume] in Blood by Automated count 0.49 10*3/uL 0-0.5 [facility] Basophils [#/volume] in Blood by Automated count 0.06 10*3/uL 0-0.2 [facility] Nucleated erythrocytes/100 leukocytes [Ratio] in Blood by Automated count 0 /100{WBCs} 0-0 [facility] ID Date Data Source [id number] 12/29/2019 04:14:34 PM EDT [facility] Name Value Range Interpretation Code Description Data Frances rce(s) Supporting Document(s) Albumin [Mass/volume] in Serum or Plasma by Bromocresol green (BCG) dye binding method 4.0 g/dL 3.5-5.2 [facility] Bilirubin.total [Mass/volume] in Serum or Plasma 0.2 mg/dL <1.2 [facility] Calcium [Mass/volume] in Serum or Plasma 9.5 mg/dL 8.6-10.0 [facility] Chloride [Moles/volume] in Serum or Plasma 101 mmol/L 98-107 [facility] Creatinine [Mass/volume] in Serum or Plasma 0.66 mg/dL 0.50-0.90 [facility] Glucose [Mass/volume] in Serum or Plasma 89 mg/dL 70-140 [facility] Alkaline phosphatase [Enzymatic activity/volume] in Serum or Plasma 59 U/L 35-104 [facility] Potassium [Moles/volume] in Serum or Plasma 4.2 mmol/L 3.4-5.1 [facility] Protein [Mass/volume] in Serum or Plasma 7.2 g/dL 6.4-8.3 [facility] Sodium [Moles/volume] in Serum or Plasma 138 mmol/L 136-145 [facility] Aspartate aminotransferase [Enzymatic activity/volume] in Serum or Plasma 14 U/L <32 [facility] Urea nitrogen [Mass/volume] in Serum or Plasma 14 mg/dL 6-20 [facility] Osmolality of Serum or Plasma by calculation 286 mosm/kg 275-300 [facility] Creatinine/Urea nitrogen [Mass Ratio] in Serum or Plasma 21 [facility] Bicarbonate [Moles/volume] in Serum 24 mmol/L 22-29 [facility] Alanine aminotransferase [Enzymatic activity/volume] in Seru m or Plasma 10 U/L <33 [facility] Anion gap 3 in Serum or Plasma 13 mmol/L 8-15 [facility] Glomerular filtration rate/1.73 sq M pre dicted among non-blacks [Volume Rate/Area] in Serum or Plasma by Creatinine-based formula (MDRD) >6 0 [facility] Glomerular filtration rate/1.73 sq M pre dicted among blacks [Volume Rate/Area] in Serum or Plasma by Creatinine-based formula (MDRD) >60 [facility] ID Date Data Source [id number] 12/29/2019 04:44:45 PM EDT [facility] Name Value Range Interpretation Code Description Data Frances rce(s) Supporting Document(s) Choriogonadotropin.beta subunit [Moles/volume] in Serum or Plasm a 1 m[IU]/mL <5 [facility] ID Date Data Source [id number] 12/09/2019 01:29:13 PM EDT [facility], PCName: Frankie ArellanoB: 1970Provider: Bertram Thrasher: 12/09/2019 Assessment 1. Pain in both feet (729.5) (M79.671,M79.672)CURRENT PROBLEM LIST 1. Left foot and ankle HISTORY OF PRESENT ILLNESSLeft ankle and foot pain for monthsPain is located medial ankle, dorsum 1st MTP jointPain is worse with prolonged standing and walking.No relieving factors noted.Associated swelling.No complaints of calf pain or shortness of breath.PHYSICAL EXAMINATION Constitutionally appears well and in no obvious distress.Patient is alert and oriented x 3 and exhibits normal mood and affect.Respiratory:Breathing at a regular rate.Vascular: Palpable 2+ pulses at the dorsalis pedis and posterior tibial level.Neurologic: Intact sensation to light touch in the superficial, peroneal and deep peroneal nerve distribution.No muscle atrophy in foot/ankle. Skin: No rashes or ulcerations noted.Musculoskeletal: Calf is non-tender on palpation.Right Ankle/Hindfoot Alignment of ankle is neutral.No swelling noted.No tenderness on palpation.Achilles is intact with no palpable defects.Ankle motion is normal.Ankle joint is stable.Right Midfoot/ForefootAlignment is neutral.No swelling noted.Tenderness on palpation 1st MTPLeft Ankle/HindfootAlignment of ankle is neutral.Swelling noted medial ankleTenderness on palpation medial ankle tib post tendon sheathAchilles is intact with no palpable defects.Ankle motion is normal. Ankle joint is stable.Left Midfoot/ForefootAlignment is neutral.No swelling noted.Tenderness on palpation 1st MTP jointRADIOLOGICAL IMAGINGRadiographs were completed today in the clinic left foot 3 viewsImaging interpreted and left hallux rigidusMEDICAL DECISION MAKING left tibialis posterior tendonitis, possible tearLeft hallux rigidusPLAN1. I reviewed the diagnosis and treatment options with the patient. The patient would like to proceed with MRI left ankle to rule out tib post tendon tear. Plan X-Ray I Foot - 3 views (XRays were ordered, obtained and interpreted today in theoffice. Indication: pain/dysfunction.); Status:Complete; Done: [id number] Perform:SOS22; Due:[id number]; Last Updated By:Radha Arriaza; 12/09/2019 1:16:35 PM;Ordered; For:Pain in both feet; Ordered By:Americo Thrasher;Weight Bearing Status : Weight bearingLaterality: : Bilateral Signatures Electronically signed by : Americo Thrasher M.D.; Dec 09 2019 1:29PM EST (Author) Name Value Range Interpretation Code Description Data Frances rce(s) Supporting Document(s) ID Date Data Source [id number] 11/21/2019 05:54:00 AM EDT [facility] ([facility]) Name Value Range Interpretation Code Description Data Frances rce(s) Supporting Document(s) Thyrotropin [Units/volume] in Serum or Plasma by Detec tion limit <= 0.05 mIU/L 0.879 uIU/ML 0.358-3.740 [facility] ([facility] ) ID Date Data Source [id number] 11/21/2019 05:54:00 AM EDT [facility] ([facility]) Name Value Range Interpretation Code Description Data Frances rce(s) Supporting Document(s) Blood Urea Nitrogen 10 mg/dL 7-18 [facility] ([facility]) Glucose, Fasting 116 mg/dL 70-100 [facility] ([facility]) Creatinine For GFR 0.73 mg/dL 0.55-1.30 [facility] ([facility]) Sodium Level 142 meq/L 136-145 [facility] ([facility]) Glomerular Filtration Rate [facility] <content>Units are mL/min/1.73 m2</content>
<content></content>
<content>Chronic Kidney Disease Staging per NKF:</content>
<content></content>
<content>Stage I & II GFR >=60 Normal to Mildly Decreased</content>
<content>Stage III GFR 30- 59 Moderately Decreased</content>
<content>Stage IV GFR 15-29 Severely Decreased</content>
<content>Stage V GFR <15 Very Little GFR Left</content>
<content>ESRD GFR <15 on PHONE TECHNICIAN</content>
<content></content> Potassium Serum 3.7 meq/L 3.5-5.1 [facility] Chloride Level 108 meq/L 98-107 [facility] ([facility]) Carbon Dioxide Level 26 meq/L 21-32 [facility] Anion Gap 8 meq/L 8-16 [facility] ([place]) Calcium Level 8.1 mg/dL 8.5-10.1 [facility] ([facility]) ID Date Data Source [id number] 11/21/2019 05:54:00 AM EDT [facility] ([facility]) Name Value Range Interpretation Code Description Data Frances rce(s) Supporting Document(s) Triglycerides Level 158 mg/dL [facility] ([facility]) HDL Cholesterol 62 mg/dL [facility] ([facility]) Cholesterol Level 192 mg/dL [facility] ([facility]) LDL Cholesterol 98 mg/dL [facility] ([facility]) Non-HDL-C 130 mg/dL [facility]) Cholesterol Risk Ratio 3.096 [facility] ([facility]) ID Date Data Source [id number] 11/21/2019 05:54:00 AM EDT [facility] ([facility]) Name Value Range Interpretation Code Description Data Frances rce(s) Supporting Document(s) Red Blood Count 4.03 10 4.00-5.40 [facility] ([facility]) White Blood Count 13.4 10 4.0-10.0 [facility] ([facility]) Mean Corpuscular Volume 90.6 fl 80.0-96.0 [facility] ([facility]) Hematocrit 36.5 % 36.0-47.0 [facility] Hemoglobin 12.1 g/dL 12.0-15.5 [facility] ([place] [facility]) Red Cell Distribution Width 13.0 % 11.5-14.5 [facility] ([facility]) Mean Corpuscular HGB Conc 33.2 g/dL 32.0-36.5 [facility] ([facility]) Mean Corpuscular Hemoglobin 30.0 pg 27.0-33.0 [facility] ([facility]) Platelet Count, Automated 254 10 150-450 [facility] ([facility]) Lymph % 18.9 % 24.0-44.0 [facility]) Neutrophils % 71.3 % 36.0-66.0 [facility] ([facility]) Weston % 9.2 % 0.0-5.0 [facility]) Eos % 0.1 % 0.0-3.0 [facility] Immature Granulocyte % 0.4 % 0-3.0 [facility] ([facility]) Baso % 0.1 % 0.0-1.0 [facility]) Lymph # 2.5 10 1.5-5.0 [facility] Neutrophils # 9.6 10 1.5-8.5 [facility] ([facility]) Nucleated Red Blood Cell % 0.0 % 0-0 [facility] ([facility]) Baso # 0.0 10 0.0-0.2 [facility] Eos # 0.0 10 0.0-0.5 [facility] Weston # 1.2 10 0.0-0.8 [facility] ([facility]) ID Date Data Source [id number] 11/21/2019 05:54:00 AM EDT [facility] Name Value Range Interpretation Code Description Data Frances rce(s) Supporting Document(s) Thyrotropin [Units/volume] in Serum or Plasma 0.879 uIU/ML 0. 358-3.740 Normal (applies to non-numeric results) [facility] ([facility], ) ID Date Data Source [id number] 11/21/2019 05:54:00 AM EDT [facility], ) Name Value Range Interpretation Code Description Data Frances rce(s) Supporting Document(s) Glucose, Fasting 116 mg/dL 70-100 Above high normal [facility] ([facility], ) Blood Urea Nitrogen 10 mg/dL 7-18 Normal (applies to non-nume usha results) [facility] ([facility]) Glomerular Filtration Rate Laboratory test result Normal (applies to non- numeric results) [facility] ([facility]) <content>Units are mL/min/1.73 m2</content>
<content></content>
<content>Chronic Kidney Disease Staging per NKF:</content>
<content></content>
<content>Stage I & II GFR >=60 Normal to Mildly Decreased</content>
<content>Stage III GFR 30- 59 Moderately Decreased</content>
<content>Stage IV GFR 15-29 Severely Decreased</content>
<content>Stage V GFR <15 Very Little GFR Left</content>
<content>ESRD GFR <15 on PHONE TECHNICIAN</content>
<content></content> Creatinine For GFR 0.73 mg/dL 0.55-1.30 Normal (applies to non -numeric results) [facility] ([facility]) Potassium Serum 3.7 meq/L 3.5-5.1 Normal (applies to non-numeric results) [facility] ([facility], ) Sodium Level 142 meq/L 136-145 Normal (applies to non-numeric res ults) [facility] ([facility]) Anion Gap 8 meq/L 8-16 Normal (applies to non-numeric resul ts) [facility] ([facility]) Chloride Level 108 meq/L 98-107 Above high normal [facility] ([facility]) Carbon Dioxide Level 26 meq/L 21-32 Normal (applies to non-num tabby results) [facility] ([facility]) Calcium Level 8.1 mg/dL 8.5-10.1 Below low normal [facility] ([facility]) ID Date Data Source [id number] 11/21/2019 05:54:00 AM EDT [facility] ([facility]) Name Value Range Interpretation Code Description Data Frances rce(s) Supporting Document(s) HDL Cholesterol 62 mg/dL Normal (applies to non-numeric results) [facility]) Cholesterol Level 192 mg/dL Normal (applies to non-numeri c results) [facility] ([facility]) Triglycerides Level 158 mg/dL Above high normal [facility] ([facility]) Cholesterol Risk Ratio 3.096 Normal (applies to non-n umeric results) [facility] ([facility]) LDL Cholesterol 98 mg/dL Normal (applies to non-numeric results) [facility] ([facility]) Non-HDL-C 130 mg/dL Normal (applies to non-numeric resul ts) [facility] ([facility]) ID Date Data Source [id number] 11/21/2019 05:54:00 AM EDT [facility] ([facility]) Name Value Range Interpretation Code Description Data Frances rce(s) Supporting Document(s) White Blood Count 13.4 10 4.0-10.0 Above high normal [facility] ([facility]) Red Blood Count 4.03 10 4.00-5.40 Normal (applies to non-numeric results) [facility] ([facility]) Hemoglobin 12.1 g/dL 12.0-15.5 Normal (applies to non-numeric resul ts) [facility]) Mean Corpuscular Hemoglobin 30.0 pg 27.0-33.0 Norm al (applies to non-numeric results) [facility] ([facility]) Hematocrit 36.5 % 36.0-47.0 Normal (applies to non-numeric resul ts) [facility]) Mean Corpuscular Volume 90.6 fl 80.0-96.0 Normal ( applies to non-numeric results) [facility] ([facility]) Red Cell Distribution Width 13.0 % 11.5-14.5 Norm al (applies to non-numeric results) [facility]) Mean Corpuscular HGB Conc 33.2 g/dL 32.0-36.5 Normal (applies to non-numeric results) [facility] ([facility]) Platelet Count, Automated 254 10 150-450 Normal (applies to non-numeric results) [facility]) Neutrophils % 71.3 % 36.0-66.0 Above high normal [facility] ([facility]) Weston % 9.2 % 0.0-5.0 Above high normal [facility] ([facility]) Lymph % 18.9 % 24.0-44.0 Below low normal [facility] ( [facility]) Baso % 0.1 % 0.0-1.0 Normal (applies to non-numeric resul ts) [facility] ([facility]) Eos % 0.1 % 0.0-3.0 Normal (applies to non-numeric resul ts) [facility] ([facility]) Immature Granulocyte % 0.4 % 0-3.0 Normal (applies to non-n umeric results) [facility] ([facility]) Nucleated Red Blood Cell % 0.0 % 0-0 Normal (applies to n on-numeric results) [facility] ([facility]) Neutrophils # 9.6 10 1.5-8.5 Above high normal [facility] ([facility]) Lymph # 2.5 10 1.5-5.0 Normal (applies to non-numeric resul ts) [facility] ([facility]) Weston # 1.2 10 0.0-0.8 Above high [facility] Eos # 0.0 10 0.0-0.5 Normal (applies to non-numeric resul ts) [facility] ([facility]) Baso # 0.0 10 0.0-0.2 Normal (applies to non-numeric resul ts) [facility] ([facility]) ID Date Data Source [id number] 11/20/2019 06:10:00 PM EDT [facility]) Name Value Range Interpretation Code Description Data Frances rce(s) Supporting Document(s) Estimated Average Glucose 120 mg/dL 60-110 [facility] ([facility]) Hemoglobin A1c 5.8 % [facility] ([facility]) REFERENCE RANGES: 4.5-5.6% NORMAL 5.7-6.4% SUGGESTS IMPAIRED GLUCOSE META BOLISM >= 6.5% ABNORMAL ID Date Data Source [id number] 11/20/2019 06:10:00 PM EDT [facility] ([facility]) Name Value Range Interpretation Code Description Data Frances rce(s) Supporting Document(s) Glucose, Fasting 162 mg/dL 70-100 [facility] ([facility]) Blood Urea Nitrogen 13 mg/dL 7-18 [facility] ([facility]) Creatinine For GFR 0.83 mg/dL 0.55-1.30 [facility] ([facility]) Glomerular Filtration Rate Laboratory test result [facility] ([facility]) <content>Units are mL/min/1.73 m2</content>
<content></content>
<content>Chronic Kidney Disease Staging per NKF:</content>
<content></content>
<content>Stage I & II GFR >=60 Normal to Mildly Decreased</content>
<content>Stage III GFR 30- 59 Moderately Decreased</content>
<content>Stage IV GFR 15-29 Severely Decreased</content>
<content>Stage V GFR <15 Very Little GFR Left</content>
<content>ESRD GFR <15 on PHONE TECHNICIAN</content>
<content></content> Potassium Serum 4.0 meq/L 3.5-5.1 [facility] ([facility]) Sodium Level 139 meq/L 136-145 [facility] ([facility]) Chloride Level 104 meq/L 98-107 [facility] ([facility]) Calcium Level 8.2 mg/dL 8.5-10.1 [facility] ([facility]) Carbon Dioxide Level 27 meq/L 21-32 [facility] ([facility]) Anion Gap 8 meq/L 8-16 [facility] ([place] [facility]) ID Date Data Source [id number] 11/20/2019 06:10:00 PM EDT [facility] ([facility]) Name Value Range Interpretation Code Description Data Frances rce(s) Supporting Document(s) Red Blood Count 4.40 10 4.00-5.40 [facility] ([facility]) Hemoglobin 13.1 g/dL 12.0-15.5 [facility]) White Blood Count 13.6 10 4.0-10.0 [facility] ([facility]) Hematocrit 39.8 % 36.0-47.0 [facility] Mean Corpuscular Hemoglobin 29.8 pg 27.0-33.0 [facility] ([facility]) Mean Corpuscular Volume 90.5 fl 80.0-96.0 [facility] ([facility]) Red Cell Distribution Width 12.7 % 11.5-14.5 [facility] ([facility]) Mean Corpuscular HGB Conc 32.9 g/dL 32.0-36.5 [facility] ([facility]) Platelet Count, Automated 259 10 150-450 [facility] ([facility]) Nucleated Red Blood Cell % 0.0 % 0-0 [facility] ([facility]) ID Date Data Source [id number] 11/20/2019 06:10:00 PM EDT [facility] ([facility]) Name Value Range Interpretation Code Description Data Frances rce(s) Supporting Document(s) Hemoglobin A1c 5.8 % Normal (applies to non-numeric r esults) [facility]) REFERENCE RANGES: 4.5-5.6% NORMAL 5.7-6.4% SUGGESTS IMPAIRED GLUCOSE META BOLISM >= 6.5% ABNORMAL Estimated Average Glucose 120 mg/dL 60-110 Above high normal [facility] ([facility]) ID Date Data Source [id number] 11/20/2019 06:10:00 PM EDT [facility]) Name Value Range Interpretation Code Description Data Frances rce(s) Supporting Document(s) Blood Urea Nitrogen 13 mg/dL 7-18 Normal (applies to non-nume usha results) [facility] ([facility]) Glucose, Fasting 162 mg/dL 70-100 Above high normal [facility] ([facility]) Creatinine For GFR 0.83 mg/dL 0.55-1.30 Normal (applies to non -numeric results) [facility] ([facility]) Sodium Level 139 meq/L 136-145 Normal (applies to non-numeric res ults) [facility]) Glomerular Filtration Rate Laboratory test result Normal (applies to non- numeric results) [facility] ([facility]) <content>Units are mL/min/1.73 m2</content>
<content></content>
<content>Chronic Kidney Disease Staging per NKF:</content>
<content></content>
<content>Stage I & II GFR >=60 Normal to Mildly Decreased</content>
<content>Stage III GFR 30- 59 Moderately Decreased</content>
<content>Stage IV GFR 15-29 Severely Decreased</content>
<content>Stage V GFR <15 Very Little GFR Left</content>
<content>ESRD GFR <15 on PHONE TECHNICIAN</content>
<content></content> Potassium Serum 4.0 meq/L 3.5-5.1 Normal (applies to non-numeric results) [facility] ([facility]) Chloride Level 104 meq/L 98-107 Normal (applies to non-numeric r esults) [facility] ([facility]) Carbon Dioxide Level 27 meq/L 21-32 Normal (applies to non-num tabby results) [facility] ([facility]) Anion Gap 8 meq/L 8-16 Normal (applies to non-numeric resul ts) [facility]) Calcium Level 8.2 mg/dL 8.5-10.1 Below low normal [facility] ([facility]) ID Date Data Source [id number] 11/20/2019 06:10:00 PM EDT [facility] ([facility]) Name Value Range Interpretation Code Description Data Frances rce(s) Supporting Document(s) White Blood Count 13.6 10 4.0-10.0 Above high normal [facility] ([facility]) Red Blood Count 4.40 10 4.00-5.40 Normal (applies to non-numeric results) [facility]) Hemoglobin 13.1 g/dL 12.0-15.5 Normal (applies to non-numeric resul ts) [facility]) Hematocrit 39.8 % 36.0-47.0 Normal (applies to non-numeric resul ts) [facility]) Mean Corpuscular Volume 90.5 fl 80.0-96.0 Normal ( applies to non-numeric results) [facility]) Mean Corpuscular Hemoglobin 29.8 pg 27.0-33.0 Norm al (applies to non-numeric results) [facility]) Mean Corpuscular HGB Conc 32.9 g/dL 32.0-36.5 Normal (applies to non-numeric results) [facility]) Platelet Count, Automated 259 10 150-450 Normal (applies to non-numeric results) [facility] ([facility]) Red Cell Distribution Width 12.7 % 11.5-14.5 Norm al (applies to non-numeric results) [facility]) Nucleated Red Blood Cell % 0.0 % 0-0 Normal (applies to n on-numeric results) [facility]) ID Date Data Source [id number] 11/20/2019 07:00:00 AM EDT [facility] Name Value Range Interpretation Code Description Data Frances rce(s) Supporting Document(s) Blood Type Laboratory test result [facility] AB Screen (Indirect Tootie)Vis Laboratory test result [facility] ID Date Data Source [id number] 11/20/2019 07:00:00 AM EDT [facility] ([facility]) Name Value Range Interpretation Code Description Data Frances rce(s) Supporting Document(s) Blood Type Laboratory test result Normal (applies to non-n umeric results) [facility] ([facility]) Blood group antibody screen [Presence] in Serum or Jaspreet sma Laboratory test result Normal (applies to non-numeric results) [facility] ([facility], ) ID Date Data Source [id number] 11/17/2019 10:45:00 AM EDT [facility] Name Value Range Interpretation Code Description Data Frances rce(s) Supporting Document(s) SARS CORONAVIRUS 2 RNA [facility] This lab was ordered by [facility] and reported by [facility]. ID Date Data Source [id number] 11/05/2019 08:56:00 AM EDT [facility] Name Value Range Interpretation Code Description Data Frances rce(s) Supporting Document(s) Surgical Pathology Consult Laboratory test result [facility]) Surgical Pathology Report Name: FRANKIE ARELLANO Collection Date: 11/05/2019 00:00 Received Date: 11/05/2019 09:04 Physician(s): KARYN BENAVIDEZ DO ADJAPONG, OPOKU, MD Specimen(s) Received A: Material received for consultation Clinical History Invasive ductal carcinoma (breast) Please do: ER, MA, Her2 reflex to FISH if equivocal. Diagnosis IMMUNOHISTOCHEMISTRY, RIGHT BREAST, BIOPSY (OUTSIDE BLOCK [id number], 10/31/19): ESTROGEN RECEPTORS: Positive (strong, 95%). PROGESTERONE RECEPTORS: Low Positive (weak, 1-2%) HER2: Negative (1+) Electronically Signed By Nabeel Lugo M.D., Attending Pathologist 11/06/2019 16:24:31 Unless 'gross-only' is specified, the final diagnosis is based on a microscopic examination of retail representative sections of tissue. Gross Description Received from [facility] in [place], [place] is one paraffin block labeled [id number] and the corresponding pathology report. /scb This report may include one or more immunohistochemical stain results that use analyte specific reagents. All positive and negative controls have been reviewed by the attending pathologist and are satisfactory. The tests were developed and their performance characteristics determined by [facility] Pathology department. They have not been cleared or approved by the US Food and Drug Administration. The FDA has determined that such clearance or approval is not necessary. ID Date Data Source [id number] 11/06/2019 04:24:00 PM EDT [facility] Surgical Pathology ReportName: Nicolasa ARELLANOAGROSMRN: [id number] Number: [id number] Date: 11/05/2019 00:00Received Date: 11/05/2019 09:04Physician(s): KARYN BENAVIDEZ, ADJLISBETH,JET,MEENUpecimen(s) ReceivedA: Material received for consultationClinical HistoryInvasive ductal carcinoma (breast) Please do: ER, MA, Her2 reflex to FISHif equivocal.DiagnosisIMMUNOHISTOCHEMISTRY, RIGHT BREAST, BIOPSY (OUTSIDE BLOCK [id number],10/31/19):ESTROGEN RECEPTORS: Positive (strong, 95%).PROGESTERONE RECEPTORS: Low Positive (weak, 1-2%) HER2: Negative (1+) Electronically Signed By Nabeel Lugo M.D., Attending Pathologist11/06/2019 16:24:31 Unless 'gross-only' is specified, the final diagnosis is based on amicroscopic examination of retail representative sections of tissue.Gross DescriptionReceived from [facility] in [place], [place] is one paraffinblock labeled [id number] and the corresponding pathology report. /scbThis report may include one or more immunohistochemical stain results thatuse analyte specific reagents. All positive and negative controls havebeen reviewed by the attending pathologist and are satisfactory. The testswere developed and their performance characteristics determined by [facility] Pathology department. They have not been cleared or approved by the USFood and Drug Administration. The FDA has determined that such clearanceor approval is not necessary. Name Value Range Interpretation Code Description Data Frances rce(s) Supporting Document(s) ID Date Data Source [id number] 10/31/2019 04:40:00 PM EDT [facility] ([facility], ) Name Value Range Interpretation Code Description Data Frances rce(s) Supporting Document(s) Surgical pathology study Laboratory test result [facility] ([facility], ) Addendum 1 Entered: 11/07/2019-0810 [facility] [id number] DOS 11-07-2019 Estrogen Receptors: Positive (strong, 95%) Progesterone Receptors: Low Positive (weak, 1-2%) HER 2 MARÍA: Negative (1+) See complete RON report([id number]). 11/07/2019809 Addendum Signed____ JET DEAL MD 11/07/2019 0811 FINAL DIAGNOSIS Right breast, biopsy: Invasive ductal carcinoma, grade 3 (of 3). -4/TR ER, MA, HER2/maría results to follow. 11/04/2019 - 854 CLINICAL DIAGNOSIS Right breast mass 11/03/2019 - 1129 GROSS DIAGNOSIS Received in formalin labeled "right breast" consists of core fragments of tissue measuring from 0.5 to 1.0 cm. All in one. -OA 11/03/2019 - 1129 Signed JET DEAL MD 11/04/2019 0912 ID Date Data Source [id number] 10/28/2019 02:54:00 PM EDT [facility] ([facility]) Name Value Range Interpretation Code Description Data Frances rce(s) Supporting Document(s) Glucose [Mass/volume] in Serum or Plasma 110 mg/dL 74-99 [facility] ([facility]) 100-125 mg/dL PRE-DIABETES/FASTING >126 mg/dL DIABETES/FASTING Urea nitrogen [Mass/volume] in Serum or Plasma 17 mg/dL 7-18 [facility] ([facility]) Creatinine 0.7 mg/dL 0.6-1.3 [facility] Potassium [Moles/volume] in Serum or Plasma 3.7 meq/L 3.5-5.1 [facility] ([facility]) Sodium [Moles/volume] in Serum or Plasma 143 meq/L 136-145 [facility] ([facility]) Carbon dioxide, total [Moles/volume] in Serum or Plasma 31 meq/L 21 -32 [facility] ([facility]) Calcium [Mass/volume] in Serum or Plasma 8.7 mg/dL 8.5-10.1 [facility] ([facility]) Chloride [Moles/volume] in Serum or Plasma 105 meq/L 98-107 [facility] ([facility]) Aspartate aminotransferase [Enzymatic activity/volume] in Serum or Plasma 15 U/L 15-37 [facility] ([facility] ) Total Bilirubin 0.3 mg/dL 0.2-1.0 [facility] ([facility]) Alkaline phosphatase isoenzyme [Units/volume] in Serum or Pl asma 72 mg/dL 46-116 [facility] ([facility]) Alanine aminotransferase [Enzymatic activity/volume] in Seru m or Plasma 31 U/L 12-78 [facility] ([facility]) Proteinase 3 Ab [Units/volume] in Serum 7.7 g/dL 6.4-8.2 [facility] ([facility]) Albumin [Mass/volume] in Serum or Plasma 3.8 g/dL 3.4-5.0 [facility] ([facility]) A/G Ratio 0.97 CALC 1.00-1.90 [facility] Glomerular filtration rate/1.73 sq M pre dicted among non-blacks [Volume Rate/Area] in Serum or Plasma by Creatinine-based formula (MDRD) Laboratory test result [facility] ([facility] ) Glomerular filtration rate/1.73 sq M pre dicted among blacks [Volume Rate/Area] in Serum or Plasma by Creatinine-based formula (MDRD) Laboratory test result [facility] ([facility]) <content>CHRONIC KIDNEY DISEASE STAGING PER NKF</content>
<content></content>
<content>STAGE I & II GFR >= 60 NORMAL TO MILDLY DECREASED</content>
<content>STAGE III GFR 30-59 MODERATELY DECREASED</content>
<content>STAGE IV GFR 15-29 SEVERELY DECREASED</content>
<content>STAGE V GFR <15 VERY LITTLE GFR LEFT</content>
<content>ESRD GFR <15 ON PHONE TECHNICIAN</content>
<content></content> ID Date Data Source [id number] 10/28/2019 02:54:00 PM EDT [facility] ([facility]) Name Value Range Interpretation Code Description Data Frances rce(s) Supporting Document(s) Erythrocytes [#/volume] in Blood by Automated count 4.95 x10*6/UL 4.2 0-6.30 [facility] ([facility]) Leukocytes [#/volume] in Blood by Automated count 7.4 x10*3/UL 4.1-10 .9 [facility] ([facility]) Hemoglobin [Mass/volume] in Blood 14.7 g/dL 12.0-18.0 [facility] ([facility]) Hematocrit [Volume Fraction] of Blood by Automated count 42.9 % 3 7.0-51.0 [facility] ([facility]) MCV 86.6 fL 80.0-97.0 [facility]) MCH 29.7 pg 26.0-32.0 [facility]) Erythrocyte distribution width [Ratio] by Automated count 12.6 % 11.6-13.7 [facility] ([facility]) Platelets [#/volume] in Blood by Automated count 281 x10*3/UL 140-440 [facility] ([facility]) MCHC 34.2 g/dL 31.0-38.0 [facility] ([facility]) MPV 9.2 FL 7.8-11.0 [facility] ([facility]) Lymph % 34.1 % 10.0-58.5 [facility] Mid % 6.5 % 1.7-9.3 [facility] Neut % 59.4 % 37.0-92.0 [facility] Lymph # 2.5 x10*3/UL 0.6-4.1 [facility] ([facility]) Mid # 0.5 x10*3/UL 0.1-0.6 [facility] ([facility]) Neut # 4.4 x10*3/UL 2.0-7.8 [facility] ([facility]) ID Date Data Source [id number] 10/21/2019 08:03:00 AM EDT [facility] ([facility], ) Name Value Range Interpretation Code Description Data Frances rce(s) Supporting Document(s) Creatinine For GFR 0.60 mg/dL 0.55-1.30 Normal (applies to non -numeric results) [facility] ([facility], ) Glucose, Fasting 99 mg/dL 70-100 Normal (applies to non-numeric results) [facility] ([facility], ) Blood Urea Nitrogen 13 mg/dL 7-18 Normal (applies to non-nume usha results) [facility] ([facility]) Glomerular Filtration Rate Laboratory test result Normal (applies to non- numeric results) [facility]) <content>Units are mL/min/1.73 m2</content>
<content></content>
<content>Chronic Kidney Disease Staging per NKF:</content>
<content></content>
<content>Stage I & II GFR >=60 Normal to Mildly Decreased</content>
<content>Stage III GFR 30- 59 Moderately Decreased</content>
<content>Stage IV GFR 15-29 Severely Decreased</content>
<content>Stage V GFR <15 Very Little GFR Left</content>
<content>ESRD GFR <15 on PHONE TECHNICIAN</content>
<content></content> Sodium Level 139 meq/L 136-145 Normal (applies to non-numeric res ults) [facility] ([facility], ) Chloride Level 108 meq/L 98-107 Above high normal [facility] ([facility]) Carbon Dioxide Level 28 meq/L 21-32 Normal (applies to non-num tabby results) [facility]) Potassium Serum 3.8 meq/L 3.5-5.1 Normal (applies to non-numeric results) [facility]) Calcium Level 8.4 mg/dL 8.5-10.1 Below low normal MED [facility] ([facility]) Anion Gap 3 meq/L 8-16 Below low [facility] ID Date Data Source [id number] 10/13/2019 06:31:00 PM EDT [facility] ([facility]) Name Value Range Interpretation Code Description Data Frances rce(s) Supporting Document(s) Gram Stain Laboratory test result Normal (applies to non-n umeric results) [facility] ([facility]) FEW WBCS NO ORGANISMS SEEN Wound Culture Laboratory test result [facility] ([facility]) * This is a corrected result. * A prior result that was reported as final has been changed. If aerobic or anaerobic growth is detected within the next 7-21 days, an addendum will follow. . . FULL REPORT IN LAB NOTES (eCW and [facility]). NO GROWTH AEROBICALLY ORGANISM 1: PROPIONIBACTERIUM ACNES QUANTITY OF GROWTH FEW ORGANISM 1: PROPIONIBACTERIUM ACNES ID Date Data Source [id number] 10/09/2019 09:26:00 AM EDT [facility] ([facility]) Name Value Range Interpretation Code Description Data Frances rce(s) Supporting Document(s) Surgical pathology study Laboratory test result [facility] ([facility]) FINAL DIAGNOSIS A - Left breast, medial, biopsy: Ductal carcinoma in-situ, grade 3 (of 3). Microcalcification associated with carcinoma in-situ. B - Left breast, lateral, biopsy: Ductal carcinoma in-situ, grade 3 (of 3). Microcalcification associated with carcinoma in-situ. Estrogen receptor: Positive (strong,100%) Progesterone receptor: Positive (weak,5%) 10/13/2019 - 1111 CLINICAL DIAGNOSIS Left breast calcifications 10/09/2019 - 1502 GROSS DIAGNOSIS A - Received in formalin labeled "left breast medial" consists of fragments of soft tissue, 1 x 0.8 x 0.1 cm in aggregate. All in one. B - Received in formalin labeled "left breast lateral" consists of fragments of soft tissue, 1.2 x 1 x 0.2 cm in aggregate. All in two. -OA 10/09/2019 - 150 Signed JET DEAL MD 10/13/2019 1316 ID Date Data Source Pathology Request For Service 09/16/2019 12:00:00 AM EDT eCW 1 ([facility]) Name Value Range Interpretation Code Description Data Frances rce(s) Supporting Document(s) GENITOURINARY eCW1 ([facility]) ID Date Data Source CHLAMYDIA & GC DNA AMPLIFICAT 09/16/2019 12:00:00 AM EDT eCW 1 ([facility]) Name Value Range Interpretation Code Description Data Frances rce(s) Supporting Document(s) Chlamydia trachomatis rRNA [Presence] in Unspecified specimen by Probe and target amplification method NEGATIVE NEGATIVE CHLAMYDIA DNA AMPLIFICATION eCW1 ([facility]) ID Date Data Source [id number] 09/11/2019 11:44:00 AM EST [facility] ([facility]) Name Value Range Interpretation Code Description Data Frances rce(s) Supporting Document(s) Thyrotropin [Units/volume] in Serum or Plasma by Detec tion limit <= 0.05 mIU/L 2.84 uIU/mL 0.36-3.74 [facility] ([facility] ) ID Date Data Source [id number] 09/11/2019 11:44:00 AM EST [facility] ([facility]) Name Value Range Interpretation Code Description Data Frances rce(s) Supporting Document(s) Cholesterol in HDL [Mass/volume] in Serum or Plasma 55 mg/dL 35-60 [facility] ([facility]) Triglyceride [Mass/volume] in Serum or Plasma 207 mg/dL 30-150 [facility] ([facility]) Cholesterol in LDL [Mass/volume] in Serum or Plasma by calcu lation 119 CALC 50-159 [facility] ([facility]) Cholesterol [Mass/volume] in Serum or Plasma 215 mg/dL 131-200 [facility] ([facility]) ID Date Data Source [id number] 09/11/2019 11:44:00 AM EST [facility] ([facility]) Name Value Range Interpretation Code Description Data Frances rce(s) Supporting Document(s) Glucose [Mass/volume] in Serum or Plasma 104 mg/dL 74-99 [facility] ([facility]) 100-125 mg/dL PRE-DIABETES/FASTING >126 mg/dL DIABETES/FASTING Urea nitrogen [Mass/volume] in Serum or Plasma 12 mg/dL 7-18 [facility] ([facility]) Sodium [Moles/volume] in Serum or Plasma 142 meq/L 136-145 [facility] ([facility]) Creatinine 0.7 mg/dL 0.6-1.3 [facility] ([facility]) Carbon dioxide, total [Moles/volume] in Serum or Plasma 27 meq/L 21 -32 [facility] ([facility]) Chloride [Moles/volume] in Serum or Plasma 105 meq/L 98-107 [facility] ([facility]) Calcium [Mass/volume] in Serum or Plasma 8.9 mg/dL 8.5-10.1 [facility] ([facility]) Potassium [Moles/volume] in Serum or Plasma 3.8 meq/L 3.5-5.1 [facility] ([facility]) Alkaline phosphatase isoenzyme [Units/volume] in Serum or Pl asma 65 mg/dL 46-116 [facility] ([facility]) Aspartate aminotransferase [Enzymatic activity/volume] in Serum or Plasma 14 U/L 15-37 [facility] ([facility] ) Total Bilirubin 0.5 mg/dL 0.2-1.0 [facility] ([facility]) Alanine aminotransferase [Enzymatic activity/volume] in Seru m or Plasma 27 U/L 12-78 [facility] ([facility]) Albumin [Mass/volume] in Serum or Plasma 3.9 g/dL 3.4-5.0 [facility] ([facility]) Proteinase 3 Ab [Units/volume] in Serum 7.7 g/dL 6.4-8.2 [facility] A/G Ratio 1.03 CALC 1.00-1.90 [facility] ([facility]) Glomerular filtration rate/1.73 sq M pre dicted among blacks [Volume Rate/Area] in Serum or Plasma by Creatinine-based formula (MDRD) Laboratory test result [facility] <content>CHRONIC KIDNEY DISEASE STAGING PER NKF</content>
<content></content>
<content>STAGE I & II GFR >= 60 NORMAL TO MILDLY DECREASED</content>
<content>STAGE III GFR 30-59 MODERATELY DECREASED</content>
<content>STAGE IV GFR 15-29 SEVERELY DECREASED</content>
<content>STAGE V GFR <15 VERY LITTLE GFR LEFT</content>
<content>ESRD GFR <15 ON PHONE TECHNICIAN</content>
<content></content> Glomerular filtration rate/1.73 sq M pre dicted among non-blacks [Volume Rate/Area] in Serum or Plasma by Creatinine-based formula (MDRD) Laboratory test result [facility] ID Date Data Source [id number] 09/11/2019 11:44:00 AM EST [facility] Name Value Range Interpretation Code Description Data Frances rce(s) Supporting Document(s) Hemoglobin A1c/Hemoglobin.total in Blood 6.0 g/dL 4.8-5.6 [facility] ([facility]) Lab Result Notes: Pre-Diabetes 5.7 - 6.4 % Diabetes = or > 6.5% Glucose mean value [Mass/volume] in Blood Estimated fr om glycated hemoglobin 125 mg/dL 60-110 [facility] ID Date Data Source [id number] 09/11/2019 11:44:00 AM EST [facility] Name Value Range Interpretation Code Description Data Frances rce(s) Supporting Document(s) Leukocytes [#/volume] in Blood by Automated count 7.2 x10*3/UL 4.1-10 .9 [facility] ([facility]) Erythrocytes [#/volume] in Blood by Automated count 4.88 x10*6/UL 4.2 0-6.30 [facility] ([facility]) MCV 87.6 fL 80.0-97.0 [facility] ([facility]) Hematocrit [Volume Fraction] of Blood by Automated count 42.8 % 3 7.0-51.0 [facility] ([facility]) Hemoglobin [Mass/volume] in Blood 14.3 g/dL 12.0-18.0 [facility] Platelets [#/volume] in Blood by Automated count 272 x10*3/UL 140-440 [facility] MCH 29.3 pg 26.0-32.0 [facility]) Erythrocyte distribution width [Ratio] by Automated count 12.5 % 11.6-13.7 [facility] MCHC 33.5 g/dL 31.0-38.0 [facility] ([facility]) Lymph % 33.7 % 10.0-58.5 [facility] ([facility]) Mid % 8.8 % 1.7-9.3 [facility] ([facility]) MPV 9.1 FL 7.8-11.0 [facility] ([facility]) Mid # 0.7 x10*3/UL 0.1-0.6 [facility] ([facility]) Lymph # 2.4 x10*3/UL 0.6-4.1 [facility] ([facility]) Neut # 4.1 x10*3/UL 2.0-7.8 [facility] ([facility]) Neut % 57.5 % 37.0-92.0 [facility] ([facility]) ID Date Data Source [id number] 09/11/2019 11:44:00 AM EST [facility] ([facility]) Name Value Range Interpretation Code Description Data Frances rce(s) Supporting Document(s) Hemoglobin A1c/Hemoglobin.total in Blood <pending> [facility] ([facility]) ID Date Data Source [id number] 06/04/2019 11:28:00 AM EST [facility] ([facility]) Name Value Range Interpretation Code Description Data Frances rce(s) Supporting Document(s) Parathyrin.intact [Mass/volume] in Serum or Plasma 53.5 pg/mL 18.5-88 .0 [facility] ([facility]) Phosphate [Moles/volume] in Serum or Plasma 3.2 mg/dL 2.5-4.9 [facility] ([facility]) Urate [Mass/volume] in Serum or Plasma 5.1 mg/dL 2.6-6.0 [facility] ([facility]) Magnesium [Moles/volume] in Serum or Plasma 2.4 mg/dL 1.8-2.4 [facility] ([facility]) ID Date Data Source [id number] 06/04/2019 11:28:00 AM EST [facility] Name Value Range Interpretation Code Description Data Frances rce(s) Supporting Document(s) Blood Urea Nitrogen 13 mg/dL 7-18 [facility] ([facility]) Glucose, Fasting 100 mg/dL 70-100 [facility] ([facility]) Creatinine For GFR 0.69 mg/dL 0.55-1.30 [facility] ([facility]) Glomerular Filtration Rate Laboratory test result [facility] ([facility]) <content>Units are mL/min/1.73 m2</content>
<content></content>
<content>Chronic Kidney Disease Staging per NKF:</content>
<content></content>
<content>Stage I & II GFR >=60 Normal to Mildly Decreased</content>
<content>Stage III GFR 30- 59 Moderately Decreased</content>
<content>Stage IV GFR 15-29 Severely Decreased</content>
<content>Stage V GFR <15 Very Little GFR Left</content>
<content>ESRD GFR <15 on PHONE TECHNICIAN</content>
<content></content> Sodium Level 141 meq/L 136-145 [facility] ([facility]) Chloride Level 106 meq/L 98-107 [facility] ([facility]) Potassium Serum 4.0 meq/L 3.5-5.1 [facility] ([facility]) Anion Gap 6 meq/L 8-16 [facility]) Calcium Level 8.9 mg/dL 8.5-10.1 [facility] ([facility]) Carbon Dioxide Level 29 meq/L 21-32 [facility] ( [facility] ID Date Data Source [id number] 06/04/2019 11:28:00 AM EST [facility] ([facility]) Name Value Range Interpretation Code Description Data Frances rce(s) Supporting Document(s) Calcium.ionized [Mass/volume] in Serum o r Plasma by Ion-selective membrane electrode (ISE) 4.6 mg/dL 4.5-5.3 [facility]) ID Date Data Source PTH INTACT 06/04/2019 12:00:00 AM EST eCW1 ([facility]) Name Value Range Interpretation Code Description Data Frances rce(s) Supporting Document(s) 53.5 18.5-88.0 PTH INTACT eCW1 ([facility]) ID Date Data Source URIC ACID 06/04/2019 12:00:00 AM EST eCW1 ([facility]) Name Value Range Interpretation Code Description Data Frances rce(s) Supporting Document(s) 5.1 2.6-6.0 URIC ACID [facility]CW1 ([facility]) ID Date Data Source PHOSPHOROUS LEVEL 06/04/2019 12:00:00 AM EST eCW1 ([facility]) Name Value Range Interpretation Code Description Data Frances rce(s) Supporting Document(s) 3.2 2.5-4.9 PHOSPHORUS LEVEL eCW1 ([facility]) ID Date Data Source MAGNESIUM LEVEL 06/04/2019 12:00:00 AM EST eCW1 ([facility]) Name Value Range Interpretation Code Description Data Frances rce(s) Supporting Document(s) 2.4 1.8-2.4 MAGNESIUM LEVEL W1 ([facility]) ID Date Data Source Basic Metabolic Profile (BMP) 06/04/2019 12:00:00 AM EST eCW 1 ([facility]) Name Value Range Interpretation Code Description Data Frances rce(s) Supporting Document(s) 13 7-18 BLOOD UREA NITROGEN eCW1 ([facility]) 100 70-100 GLUCOSE, FASTING eCW1 ([facility]) 0.69 0.55-1.30 CREATININE FOR GFR eCW1 ([facility]) > 60.0 >51 GLOMERULAR FILTRATION RATE eCW 1 ([facility]) 4.0 3.5-5.1 POTASSIUM SERUM eCW1 ([facility]) 141 136-145 SODIUM LEVEL eCW1 ([facility]) 106 98-107 CHLORIDE LEVEL eCW1 ([facility]) 8.9 8.5-10.1 CALCIUM LEVEL eCW1 ([facility]) 29 21-32 CARBON DIOXIDE LEVEL eCW1 ([facility]) ID Date Data Source Ionized Calcium 06/04/2019 12:00:00 AM EST eCW1 ([facility]) Name Value Range Interpretation Code Description Data Frances rce(s) Supporting Document(s) 4.6 4.5-5.3 IONIZED CALCIUM eCW1 ([facility]) Procedure Social History Code Duration Value Status Description Data Source(s ) Smoking 06/28/2020 12:00:00 AM EST Never Smoker completed Never S moker eCW1 ([facility]) Smoking 06/28/2020 12:00:00 AM EST Never Smoker completed Never S moker eCW1 ([facility]) Smoking 06/28/2020 12:00:00 AM EST Never Smoker completed Never S moker eCW1 ([facility]) Smoking 03/08/2020 12:00:00 AM EDT Patient has never smoked co mpleted Patient has never smoked [facility] ([facility] ) Smoking 01/26/2020 12:00:00 AM EDT Never Smoker completed Never S moker eCW1 ([facility]) Smoking 01/26/2020 12:00:00 AM EDT Never Smoker completed Never S moker eCW1 ([facility]) Alcohol intake 12/29/2019 12:00:00 AM EDT Current drinker of al cohol (finding) completed Current drinker of alcohol (finding) [facility] Smoking 12/29/2019 12:00:00 AM EDT Never smoker completed Never s [facility] Smoking 12/23/2019 12:00:00 AM EDT Never Smoker completed Never S [facility] eCW1 ([facility]) Smoking 12/23/2019 12:00:00 AM EDT Never Smoker completed Never S [facility] eCW1 ([facility]) Smoking 12/23/2019 12:00:00 AM EDT Never Smoker completed Never S [facility] eCW1 ([facility]) Vital Signs ID Date Data Source UNK Name Value Range Interpretation Code Description Data Source(s) Body mass index (BMI) [Ratio] 31.7 kg/m2 31.7 k g/m2 [facility] ([facility]) Oxygen saturation in Arterial blood by Pulse oximetry --post exerci se 93 % 93 % [facility] ([facility]) RM Air Body weight 173.50 [lb_av] 173.50 [lb_av] MED[facility] T ([facility]) Body height 62.0 [in_i] 62.0 [in_i] [facility] ([facility]) 5'2" Heart rate 76 /min 76 /min [facility] ([facility]) Diastolic blood pressure 72 mm[Hg] 72 mm[Hg] [facility] ([facility]) RT Arm Systolic blood pressure 110 mm[Hg] 110 mm[Hg] M EDENT ([facility]) RT Arm Diastolic blood pressure 82 mm[Hg] 82 mm[Hg] eCW1 ([facility]) Systolic blood pressure 133 mm[Hg] 133 mm[Hg] e CW1 ([facility]) Body mass index (BMI) [Ratio] 31.9 kg/m2 31.9 k g/m2 W1 ([facility]) Body height 61.75 [in_i] 61.75 [in_i] [facility] ([facility]) Body weight 78.47 kg 78.47 kg W1 ([facility]) Body weight 173 [lb_av] 173 [lb_av] eCW1 ([facility]) Diastolic blood pressure 68 mm[Hg] 68 mm[Hg] eCW1 ([facility]) Systolic blood pressure 122 mm[Hg] 122 mm[Hg] e CW1 ([facility]) Body temperature 98.3 [degF] 98.3 [degF] eCW1 ( [facility]) Respiratory rate 18 /min 18 /min eCW1 ([facility]) Heart rate 68 /min 68 /min eCW1 ([facility]) Body mass index (BMI) [Ratio] 31.38 kg/m2 31.38 kg/m2 eCW1 ([facility]) Body height 61.75 [in_i] 61.75 [in_i] eCW1 ([facility]) Body weight 77.2 kg 77.2 kg eCW1 ([facility]) Body weight 170.2 [lb_av] 170.2 [lb_av] eCW1 ([facility]) Body mass index (BMI) [Ratio] 31.1 kg/m2 31.1 k g/m2 [facility] ([facility]) Oxygen saturation in Arterial blood by Pulse oximetry --post exerci se 97 % 97 % MEDENT ([facility]) RM Air Oxygen saturation in Arterial blood by Pulse oximetry 97 % 97 % MEDENT ([facility]) RM Air Body weight 170.00 [lb_av] 170.00 [lb_av] MEDEN T ([facility]) Body height 62.0 [in_i] 62.0 [in_i] MEDENT ([facility]) 5'2" Heart rate 80 /min 80 /min MEDENT ([facility]) Diastolic blood pressure 74 mm[Hg] 74 mm[Hg] [facility] ([facility]) RT Arm Systolic blood pressure 116 mm[Hg] 116 mm[Hg] M EDENT ([facility]) RT Arm Body mass index (BMI) [Ratio] 30.9 kg/m2 30.9 k g/m2 MEDENT ([facility]) Oxygen saturation in Arterial blood by Pulse oximetry --post exerci se 92 % 92 % [facility] ([facility]) RM Air Body weight 169.12 [lb_av] 169.12 [lb_av] MEDEN T ([facility]) Body height 62.0 [in_i] 62.0 [in_i] MEDENT ([facility]) 5'2" Heart rate 116 /min 116 /min MEDENT ([facility]) Diastolic blood pressure 70 mm[Hg] 70 mm[Hg] [facility] ([facility]) RT Arm Systolic blood pressure 108 mm[Hg] 108 mm[Hg] M EDENT ([facility]) RT Arm Body mass index (BMI) [Ratio] 33.7 kg/m2 33.7 k g/m2 [facility] ([facility]) Diastolic blood pressure 76 mm[Hg] 76 mm[Hg] [facility] ([facility]) Systolic blood pressure 123 mm[Hg] 123 mm[Hg] M EDENT ([facility]) Respiratory rate 18 /min 18 /min MED[facility] ( [facility]) Heart rate 103 /min 103 /min [facility] ([facility] Body height 61 [in_i] 61 [in_i] [facility] ([facility] 5'1" Body weight 178.50 [lb_av] 178.50 [lb_av] MEDEN T ([facility]) Diastolic blood pressure 80 mm[Hg] 80 mm[Hg] eCW1 ([facility]) Systolic blood pressure 110 mm[Hg] 110 mm[Hg] e CW1 ([facility]) Body temperature 97.3 [degF] 97.3 [degF] eCW1 ( [facility]) Respiratory rate 18 /min 18 /min eCW1 ([facility]) Heart rate 74 /min 74 /min eCW1 ([facility]) Body mass index (BMI) [Ratio] 32.63 kg/m2 32.63 kg/m2 eCW1 ([facility]) Body height 61.75 [in_i] 61.75 [in_i] eCW1 ([facility]) Body weight 177 [lb_av] 177 [lb_av] eCW1 ([facility]) Diastolic blood pressure 80 mm[Hg] 80 mm[Hg] eCW1 ([facility]) Systolic blood pressure 122 mm[Hg] 122 mm[Hg] e CW1 ([facility]) Body temperature 97.2 [degF] 97.2 [degF] eCW1 ( [facility]) Respiratory rate 18 /min 18 /min eCW1 ([facility]) Heart rate 100 /min 100 /min eCW1 ([facility]) Body mass index (BMI) [Ratio] 32.04 kg/m2 32.04 kg/m2 eCW1 ([facility]) Body height 61.75 [in_i] 61.75 [in_i] eCW1 ([facility]) Body weight 173.8 [lb_av] 173.8 [lb_av] eCW1 ([facility]) Body temperature 99.2 [degF] 99.2 [degF] eCW1 ( [facility]) Respiratory rate 18 /min 18 /min eCW1 ([facility]) Heart rate 96 /min 96 /min eCW1 ([facility]) Body mass index (BMI) [Ratio] 31.34 kg/m2 31.34 kg/m2 eCW1 ([facility]) Body height 61.75 [in_i] 61.75 [in_i] eCW1 ([facility]) Body weight 77.11 kg 77.11 kg eCW1 ([facility]) Body weight 170 [lb_av] 170 [lb_av] eCW1 ([facility]) Body mass index (BMI) [Ratio] 32.0 kg/m2 32.0 k g/m2 MEDENT ([facility]) Body weight 175.00 [lb_av] 175.00 [lb_av] MEDEN T ([facility]) Body height 62.0 [in_i] 62.0 [in_i] [facility] 5'2" Heart rate 86 /min 86 /min [facility] ([facility]) Diastolic blood pressure 68 mm[Hg] 68 mm[Hg] [facility] ([facility]) Systolic blood pressure 100 mm[Hg] 100 mm[Hg] [facility] ([facility]) Body weight 80.287 kg 80.287 kg [facility] ([facility]) Body mass index (BMI) [Ratio] 32.4 kg/m2 32.4 k g/m2 [facility] ([facility]) Body weight 177.00 [lb_av] 177.00 [lb_av] MEDEN T ([facility]) Body height 62 [in_i] 62 [in_i] [facility] ([facility]) 5'2" Body temperature 97.7 [degF] 97.7 [degF] [facility] ([facility]) Diastolic blood pressure 60 mm[Hg] 60 mm[Hg] [facility] ([facility]) Systolic blood pressure 98 mm[Hg] 98 mm[Hg] [facility] ([facility]) Body weight 79.153 kg 79.153 kg [facility] ([facility]) Body mass index (BMI) [Ratio] 31.9 kg/m2 31.9 k g/m2 [facility] ([facility]) Body weight 174.50 [lb_av] 174.50 [lb_av[facility] Body height 62 [in_i] 62 [in_i] [facility] ([facility]) 5'2" Body temperature 97.5 [degF] 97.5 [degF] [facility] ([facility]) Diastolic blood pressure 70 mm[Hg] 70 mm[Hg] [facility] ([facility]) Systolic blood pressure 104 mm[Hg] 104 mm[Hg] [facility]) Body mass index (BMI) [Ratio] 31.6 kg/m2 31.6 k g/m2 [facility] ([facility]) Oxygen saturation in Arterial blood by Pulse oximetry --post exerci se 92 % 92 % [facility] ([facility]) RM Air Body weight 173.00 [lb_av] 173.00 [lb_av] MEDEN T ([facility]) Body height 62.0 [in_i] 62.0 [in_i] [facility] ([facility]) 5'2" Heart rate 71 /min 71 /min [facility] ([facility]) Diastolic blood pressure 64 mm[Hg] 64 mm[Hg] [facility] ([facility]) RT Arm Systolic blood pressure 98 mm[Hg] 98 mm[Hg] M EDENT ([facility]) RT Arm Diastolic blood pressure 76 mm[Hg] 76 mm[Hg] eCW1 ([facility]) Systolic blood pressure 108 mm[Hg] 108 mm[Hg] e CW1 ([facility]) Body temperature 96.9 [degF] 96.9 [degF] eCW1 ( [facility]) Respiratory rate 16 /min 16 /min eCW1 ([facility]) Heart rate 71 /min 71 /min eCW1 ([facility]) Body mass index (BMI) [Ratio] 31.34 kg/m2 31.34 kg/m2 W1 ([facility]) Body height 61.75 [in_us] 61.75 [in_us] eCW1 ([facility]) Body weight Measured 170 [lb_av] 170 [lb_av] eC W1 ([facility]) Diastolic blood pressure 74 mm[Hg] 74 mm[Hg] eCW1 ([facility]) Systolic blood pressure 120 mm[Hg] 120 mm[Hg] e CW1 ([facility]) Body temperature 97.0 [degF] 97.0 [degF] eCW1 ( [facility]) Respiratory rate 16 /min 16 /min eCW1 ([facility]) Heart rate 74 /min 74 /min eCW1 ([facility]) Body mass index (BMI) [Ratio] 31.53 kg/m2 31.53 kg/m2 W1 ([facility]) Body height 61.75 [in_us] 61.75 [in_us] eCW1 ([facility]) Body weight Measured 171 [lb_av] 171 [lb_av] eC W1 ([facility]) Diastolic blood pressure 74 mm[Hg] 74 mm[Hg] eCW1 ([facility]) Systolic blood pressure 120 mm[Hg] 120 mm[Hg] e CW1 ([facility]) Body temperature 98.3 [degF] 98.3 [degF] eCW1 ( [facility]) Respiratory rate 16 /min 16 /min eCW1 ([facility]) Heart rate 82 /min 82 /min eCW1 ([facility]) Body mass index (BMI) [Ratio] 31.53 kg/m2 31.53 kg/m2 W1 ([facility]) Body height 61.75 [in_us] 61.75 [in_us] eCW1 ([facility]) Body weight Measured 171 [lb_av] 171 [lb_av] eC W1 ([facility]) Diastolic blood pressure 74 mm[Hg] 74 mm[Hg] eCW1 ([facility]) Systolic blood pressure 110 mm[Hg] 110 mm[Hg] e CW1 ([facility]) Body temperature 98.5 [degF] 98.5 [degF] eCW1 ( [facility]) Respiratory rate 6 /min 6 /min eCW1 ([facility]) Heart rate 76 /min 76 /min eCW1 ([facility]) Body mass index (BMI) [Ratio] 31.53 kg/m2 31.53 kg/m2 eCW1 ([facility]) Body height 61.75 [in_us] 61.75 [in_us] eCW1 ([facility]) Body weight Measured 171 [lb_av] 171 [lb_av] eC W1 ([facility]) Diastolic blood pressure 70 mm[Hg] 70 mm[Hg] eCW1 ([facility]) Systolic blood pressure 118 mm[Hg] 118 mm[Hg] e CW1 ([facility]) Body mass index (BMI) [Ratio] 31.71 kg/m2 31.71 kg/m2 eCW1 ([facility]) Body height [in_us] eCW1 ([facility]) Body weight Measured 172 [lb_av] 172 [lb_av] eC W1 ([facility]) Body mass index (BMI) [Ratio] 31.5 kg/m2 31.5 k g/m2 MED[facility] ([facility]) Body weight 172.00 [lb_av] 172.00 [lb_av] MEDEN T ([facility]) Body height 62.0 [in_i] 62.0 [in_i] MEDENT ([facility]) 5'2" Heart rate 82 /min 82 /min MEDENT ([facility]) Diastolic blood pressure 70 mm[Hg] 70 mm[Hg] [facility] ([facility]) Systolic blood pressure 110 mm[Hg] 110 mm[Hg] M EDENT ([facility]) Diastolic blood pressure 82 mm[Hg] 82 mm[Hg] eCW1 ([facility]) Systolic blood pressure 124 mm[Hg] 124 mm[Hg] e CW1 ([facility]) Body temperature 97.6 [degF] 97.6 [degF] eCW1 ( [facility]) Respiratory rate 18 /min 18 /min eCW1 ([facility]) Heart rate 84 /min 84 /min eCW1 ([facility]) Body mass index (BMI) [Ratio] 32.45 kg/m2 32.45 kg/m2 eCW1 ([facility]) Body height [in_us] eCW1 ([facility]) Body weight Measured 176 [lb_av] 176 [lb_av] eC W1 ([facility]) Diastolic blood pressure 78 mm[Hg] 78 mm[Hg] eCW1 ([facility]) Systolic blood pressure 122 mm[Hg] 122 mm[Hg] e CW1 ([facility]) Body temperature 97.9 [degF] 97.9 [degF] eCW1 ( [facility]) Respiratory rate 18 /min 18 /min eCW1 ([facility]) Heart rate 86 /min 86 /min eCW1 ([facility]) Body mass index (BMI) [Ratio] 32.26 kg/m2 32.26 kg/m2 eCW1 ([facility]) Body height [in_us] eCW1 ([facility]) Body weight Measured 175 [lb_av] 175 [lb_av] eC W1 ([facility]) ID Date Data Source [id number] 01/02/2020 11:59:48 AM [facility] Name Value Range Interpretation Code Description Data Source(s) WEIGHT RECORDED 172 lb 172 lb [facility] Body height Measured 62 in 62 in [facility] Patient Treatment Plan of Care Planned Activity Planned Date Details Description Data Source (s) 1 ML Ketorolac Tromethamine 15 MG/ML Cartridge 12/30/2019 06:00:00 AM [facility] Acetaminophen 325 MG / Hydrocodone Bitartrate 5 MG Ora l Tablet 12/30/2019 12:00:00 AM [facility] Ketorolac Tromethamine 10 MG Oral Tablet 12/30/2019 12:00:00 AM [facility] Levofloxacin 500 MG Oral Tablet 12/30/2019 12:00:00 AM [facility] tapentadol 50 MG Oral Tablet 12/30/2019 12:00:00 AM [facility] Acetaminophen 325 MG Oral Tablet 12/30/2019 12:00:00 AM [facility] Sulfamethoxazole 800 MG / Trimethoprim 160 MG Oral Tab let 12/26/2019 12:00:00 AM EDT eCW1 ([facility] Sulfamethoxazole 800 MG / Trimethoprim 160 MG Oral Tab let 12/26/2019 12:00:00 AM EDT eCW1 ([facility] hospital) Cephalexin 500 MG Oral Capsule 10/13/2019 12:00:00 AM EDT eCW1 ([facility]) Ibuprofen 800 MG Oral Tablet [facility] Sulfamethoxazole 800 MG / Trimethoprim 160 MG Oral Tablet [facility] Metformin hydrochloride 1000 MG Oral Tablet [facility] 24 HR metoprolol succinate 25 MG Extended Release Oral Tablet [facility]
[2020-07-30] MEDS ORDERED: PHENYLephrine 500MCG 5ML (100MCG/ML) SYRINGE As Ordered ONE (08:20)
--- NOTE | 2020-07-30 08:52 | ROOR ---
Patient Name: Zahra Stapleton Procedure Date: 07/30/2020 8:09 AM Date of : 1970 Age: 50 Room: [facility] Gender: Female Note Status: Finalized Procedure: Colonoscopy Indications: Screening for colorectal malignant neoplasm, Incidental - Abnormal CT of the GI tract Providers: John Brizuela MD Referring MD: Arlyn LEON MD Requesting Provider: Medicines: Monitored Anesthesia Care Complications: No immediate complications. Procedure: Pre-Anesthesia Assessment: - Prior to the procedure, a History and Physical was performed, and patient medications and allergies were reviewed. The patient is competent. The risks and benefits of the procedure and the sedation options and risks were discussed with the patient. All questions were answered and informed consent was obtained. Patient identification and proposed procedure were verified by the physician, the nurse and the anesthesiologist in the procedure room. Mental Status Examination: alert and oriented. Airway Examination: normal oropharyngeal airway and neck mobility. CV Examination: normal. Prophylactic Antibiotics: The patient does not require prophylactic antibiotics. Prior Anticoagulants: The patient has taken no previous anticoagulant or antiplatelet agents. ASA Grade Assessment: II - A patient with mild systemic disease. After reviewing the risks and benefits, the patient was deemed in satisfactory condition to undergo the procedure. The anesthesia plan was to use monitored anesthesia care (MAC). Immediately prior to administration of medications, the patient was re-assessed for adequacy to receive sedatives. The heart rate, respiratory rate, oxygen saturations, blood pressure, adequacy of pulmonary ventilation, and response to care were monitored throughout the procedure. The physical status of the patient was re-assessed after the procedure. The Colonoscope was introduced through the anus and advanced to the terminal ileum, with identification of the appendiceal orifice and IC valve. The colonoscopy was performed without difficulty. The patient tolerated the procedure well. The quality of the bowel preparation was good. The terminal ileum, ileocecal valve, appendiceal orifice, and rectum were photographed. Scope insertion time was 2 minutes. Scope withdrawal time was 9 minutes. The total duration of the procedure was 12 minutes. Findings: The perianal and digital rectal examinations were normal. The terminal ileum appeared normal. Four sessile polyps were found in the sigmoid colon, ascending colon and cecum. The polyps were 5 to 10 mm in size. These polyps were removed with a jumbo cold forceps. Resection and retrieval were complete. Verification of patient identification for the specimen was done by the physician and nurse using the patient's name, date and medical record number. Estimated blood loss was minimal. To close a defect after polypectomy, one hemostatic clip was successfully placed. There was no bleeding at the end of the procedure. Multiple small and large-mouthed diverticula were found in the sigmoid colon. There was narrowing of the colon in association with the diverticular opening. Michell-diverticular erythema was seen. There was no evidence of diverticular bleeding. A polyp located adjacent to inflammed diverticulum was removed and one clip was successfully deployed to close the defect ( Suspect fistula site). Non-bleeding external and internal hemorrhoids were found during retroflexion. The hemorrhoids were medium-sized. Impression: - The examined portion of the ileum was normal. - Four 5 to 10 mm polyps in the sigmoid colon, in the ascending colon and in the cecum, removed with a jumbo cold forceps. Resected and retrieved. Clip was placed. - Moderate diverticulosis in the sigmoid colon. There was narrowing of the colon in association with the diverticular opening. Michell-diverticular erythema was seen. There was no evidence of diverticular bleeding. - Non-bleeding external and internal hemorrhoids. Recommendation: - Patient has a contact number available for emergencies. The signs and symptoms of potential delayed complications were discussed with the patient. Return to normal activities tomorrow. Written discharge instructions were provided to the patient. - High fiber diet. - Continue present medications. - Miralax 1 capful (17 grams) in 8 ounces of water PO daily for 4 weeks. - Use fiber, for example Citrucel, Fibercon, Konsyl or Metamucil. - Await pathology results. - Repeat colonoscopy in 3 years for surveillance based on pathology results. - Telephone GI clinic for pathology results in 2 weeks. - Return to primary care physician. Procedure Code(s): --- Professional --- 59028, Colonoscopy, flexible; with biopsy, single or multiple Diagnosis Code(s): --- Professional --- Z12.11, Encounter for screening for malignant neoplasm of colon K64.8, Other hemorrhoids K63.5, Polyp of colon K57.30, Diverticulosis of large intestine without perforation or abscess without bleeding CPT copyright 2019 [employer]. All rights reserved. The codes documented in this report are preliminary and upon post production assistant review may be revised to meet current compliance requirements. John Brizuela MD John Brizuela MD 07/30/2020 8:51:45 AM Electronically signed by John Brizuela MD Number of Addenda: 0 Note Initiated On: 07/30/2020 8:09 AM Estimated Blood Loss: Estimated blood loss was minimal.
[2020-07-30 09:04] VITALS: BP 103/69
== END 2020-07-30 09:07 | disposition home or self-care (01) ==
LOC: M OPP 07:37
PROVIDERS: ATTEND Internal Medicine Gastroenterology
DX: R93.3 Abnormal findings on diagnostic imaging of other parts of digestive tract (principal); K63.5 Polyp of colon; K64.8 Other hemorrhoids; K57.30 Diverticulosis of large intestine without perforation or abscess without bleeding
CPT/HCPCS: 45380; 88305; J2370

== ENCOUNTER → 2020-08-02 | Outpatient (CLI) | payer BC ==
[~2020-08-02] MED LIST changes: -LIDOCAINE 2% 100MG/5ML SDV (FOR ANES.) As Ordered ONE; -NS 1,000 ML IV ONE; -propofoL 200 MG/20 ML VIAL As Ordered ONE
== END ==
LOC: M LABSMTC 11:32
PROVIDERS: ATTEND Plastic Surgery
DX: Z20.828 Contact with and (suspected) exposure to other viral communicable diseases (principal)

== ENCOUNTER → 2020-08-02 | Outpatient (CLI) | payer SELFPAY | LOC: M LABSMTC 09:56 | PROVIDERS: ATTEND Pediatrics | DX: Z20.822 Contact with and (suspected) exposure to COVID-19 (principal) ==

== ENCOUNTER → 2020-08-26 | Outpatient (CLI) | payer BC ==
[2020-08-26 14:15] LABS: BLOOD UREA NITROGEN 14 MG/DL (7-18); CARBON DIOXIDE LEVEL 26 MEQ/L (21-32); CHLORIDE LEVEL 106 MEQ/L (98-107); CHOLESTEROL LEVEL 173 MG/DL (<200); CHOLESTEROL RISK RATIO 2.746 (<5); GLOMERULAR FILTRATION RATE > 60.0 (>51); GLUCOSE, FASTING 107 MG/DL (70-100); HDL CHOLESTEROL 63 MG/DL (>40); LDL CHOLESTEROL 71 MG/DL (<100); NON-HDL-C 110 MG/DL; POTASSIUM SERUM 4.2 MEQ/L (3.5-5.1); SODIUM LEVEL 140 MEQ/L (136-145); TRIGLYCERIDES LEVEL 193 MG/DL (<150)
== END ==
LOC: M PLALAB 09:34
PROVIDERS: ATTEND Internal Medicine Cardiovascular Disease
DX: E78.2 Mixed hyperlipidemia (principal)

== ENCOUNTER → 2020-09-20 | Outpatient (REF) | payer BC | LOC: M SFHCWAGY 12:51 | PROVIDERS: ATTEND Nurse Practitioner Family | DX: Z12.4 Encounter for screening for malignant neoplasm of cervix (principal) ==

== ENCOUNTER → 2020-09-30 | Outpatient (CLI) | payer BC ==
--- NOTE | 2020-09-30 12:58 | REP ---
INDICATION: ABN FINDINGS IN DIAGNOSTIC IMAGING. COMPARISON: CT 05/26/2020. Ultrasound 09/25/2019. TECHNIQUE: Transabdominal and transvaginal scanning performed. FINDINGS: Uterine dimensions are 7.4 x 3.9 x 4.6 cm. Endometrial echo is 4 mm in AP dimension and centrally placed. The bladder measures 5.9 x 7.6 x 3.9cm. The right ovary has dimensions of 2.3 x 1.8 x 1.8 cm. It's Doppler flow is normal with a resistive index of 0.61. Left ovary could not be visualized due to overlying bowel. There is no adnexal mass identified. No free fluid is seen in the cul-de-sac. IMPRESSION: Negative pelvic ultrasound. Left ovary could not be visualized due to overlying bowel. <Electronically signed by Nabeel Mullins > 09/30/20 [id number]
== END ==
LOC: M RAD 10:37
PROVIDERS: ATTEND Obstetrics & Gynecology
DX: R93.89 Abnormal findings on diagnostic imaging of other specified body structures (principal); Z91.89 Other specified personal risk factors, not elsewhere classified

== ENCOUNTER → 2020-10-06 | Outpatient (CLI) | payer BC ==
[2020-10-06 14:59] LABS: ALBUMIN 4.1 GM/DL (3.2-5.2); ALT/SGPT 30 U/L (12-78); BILIRUBIN,TOTAL 0.5 MG/DL (0.2-1.0); BLOOD UREA NITROGEN 16 MG/DL (7-18); CALCIUM LEVEL 8.9 MG/DL (8.5-10.1); CARBON DIOXIDE LEVEL 27 MEQ/L (21-32); CHLORIDE LEVEL 108 MEQ/L (98-107); CREATININE FOR GFR 0.56 MG/DL (0.55-1.30); GLOMERULAR FILTRATION RATE > 60.0 (>51); GLUCOSE, FASTING 100 MG/DL (70-100); MAGNESIUM LEVEL 2.4 MG/DL (1.8-2.4); SODIUM LEVEL 140 MEQ/L (136-145); TOTAL PROTEIN 6.8 GM/DL (6.4-8.2)
== END ==
LOC: M PLALAB 10:02
PROVIDERS: ATTEND Internal Medicine Cardiovascular Disease
DX: I47.2 Ventricular tachycardia (principal); E78.2 Mixed hyperlipidemia

== ENCOUNTER → 2021-01-18 | Outpatient (CLI) | payer BC ==
[~2021-01-18] MED LIST changes: +CLIN-250 PO; -CLIN300C6 PO; +COVI100V IM; -LEVO500T3 PO; +LEVO500T4 PO; +LISI2.5T9 PO; +LOSA25TA13 PO; +ONDA-84 PO; -ONDA8TAB10 PO; +PROAAER10 INH; +PULSE OXIMETER; +REGL10TA6 PO; +TESS100C PO; +ZIAC2.5T PO
[2021-01-18 13:23] LABS: APPEARANCE, URINE CLEAR (CLEAR); BACTERIA, URINE AUTO NEGATIVE (NEGATIVE); BILIRUBIN, URINE AUTO NEGATIVE (NEGATIVE); BLOOD, URINE BLOOD NEGATIVE (NEGATIVE); COLOR, URINE YELLOW (YELLOW); GLUCOSE, URINE (UA) AUTO NEGATIVE (NEGATIVE); KETONE, URINE AUTO NEGATIVE (NEGATIVE); LEUKOCYTE ESTERASE, URINE AUTO NEGATIVE (NEGATIVE); NITRITE, URINE AUTO NEGATIVE (NEGATIVE); PROTEIN, URINE AUTO NEGATIVE (NEGATIVE); RBC, URINE AUTO 0 /HPF (0-3); SPECIFIC GRAVITY URINE AUTO 1.015 (1.002-1.035); SQUAMOUS EPITHELIAL CELL UR AU 0 /HPF (0-6); UROBILINOGEN, URINE AUTO 0.2 mg/dL (0.0-2.0); WBC, URINE AUTO 1 /HPF (0-3)
[2021-01-18 13:24] LABS: BASO # 0.1 10^3/uL (0.0-0.2); BASO % 0.9 % (0.0-1.0); EOS # 0.1 10^3/uL (0.0-0.5); HEMATOCRIT 43.2 % (36.0-47.0); HEMOGLOBIN 14.3 g/dl (12.0-15.5); LYMPH % 29.9 % (24.0-44.0); MEAN CORPUSCULAR HGB CONC 33.1 g/dl (32.0-36.5); MEAN CORPUSCULAR VOLUME 90.6 fl (80.0-96.0); MONO # 0.6 10^3/uL (0.0-0.8); MONO % 8.7 % (2.0-8.0); NEUTROPHILS # 3.8 10^3/uL (1.5-8.5); NEUTROPHILS % 57.4 % (36.0-66.0); PLATELET COUNT, AUTOMATED 267 10^3/uL (150-450); RED BLOOD COUNT 4.77 10^6/uL (4.00-5.40); WHITE BLOOD COUNT 6.7 10^3/uL (4.0-10.0)
[2021-01-18 13:50] LABS: HCG, SERUM QUALITATIVE NEGATIVE (NEGATIVE)
== END ==
LOC: M LAB 12:09
PROVIDERS: ATTEND Plastic Surgery
DX: Z00.00 Encounter for general adult medical examination without abnormal findings (principal)

== ENCOUNTER → 2021-04-19 | Outpatient (CLI) | payer BC ==
[~2021-04-19] MED LIST changes: -CLIN-250 PO; +CLIN300C6 PO; +LEVO500T3 PO; -LEVO500T4 PO; -LOSA25TA13 PO; +LOSA25TA14 PO; -ONDA-84 PO; +ONDA8TAB10 PO; -PROAAER10 INH; -PULSE OXIMETER; -REGL10TA6 PO; -TESS100C PO
[2021-04-19 18:37] LABS: BLOOD UREA NITROGEN 20 MG/DL (7-18); CALCIUM LEVEL 8.6 MG/DL (8.5-10.1); CARBON DIOXIDE LEVEL 27 MEQ/L (21-32); CHLORIDE LEVEL 109 MEQ/L (98-107); CHOLESTEROL LEVEL 194 MG/DL (<200); CHOLESTEROL RISK RATIO 3.959 (<5); CREATININE FOR GFR 0.65 MG/DL (0.55-1.30); GLOMERULAR FILTRATION RATE > 60.0 (>51); GLUCOSE, FASTING 85 MG/DL (70-100); HDL CHOLESTEROL 49 MG/DL (>40); LDL CHOLESTEROL 101 MG/DL (<100); NON-HDL-C 145 MG/DL; POTASSIUM SERUM 3.9 MEQ/L (3.5-5.1); SODIUM LEVEL 141 MEQ/L (136-145); TRIGLYCERIDES LEVEL 221 MG/DL (<150)
== END ==
LOC: M PLALAB 13:12
DX: I10 Essential (primary) hypertension (principal); E78.00 Pure hypercholesterolemia, unspecified

== ENCOUNTER → 2021-05-02 | Outpatient (CLI) | payer BC ==
[~2021-05-02] MED LIST changes: +CLIN-250 PO; -CLIN300C6 PO
--- NOTE | 2021-05-02 13:58 | REP ---
INDICATION: HISTORY OF FALLING. COMPARISON: None. TECHNIQUE: Four views FINDINGS: No acute fracture or destructive osseous lesion. The mortise is intact. There is a small plantar calcaneal heel spur. IMPRESSION: No acute osseous abnormality. <Electronically signed by Noman Crane > 05/02/21 [id number]
== END ==
LOC: M RAD 11:01
PROVIDERS: ATTEND Internal Medicine
DX: Z91.81 History of falling (principal); M77.32 Calcaneal spur, left foot

== ENCOUNTER 2021-05-09 04:23 | Emergency (ER) | payer BC ==
[~2021-05-09] VITALS: Ht 157.5 cm; Wt 8.1 kg
--- OUTSIDE RECORDS SUMMARY | 2021-05-09 04:29 | CCD | Continuity of Care Document ---
Author Author Zahra Adams M.D Organization Unknown Address [address] [facility] [address] [place] [address] Phone [phone] Care Team Providers Care Mining Consultant Name Role Phone Sushila, Geni TUBE TEST TECHNICIAN AUTM [phone] [facility] Hematology/Oncology AUTM [phone] Blake Presley MD AUTM [phone] Problems Active Problems Provider Date History of bilateral mastectomy Arlyn Adams M.D. Onse t: 11/24/2019 Infiltrating ductal carcinoma of breast, stage 3 Arlyn Velasco M.D. Onset: 11/24/2019 Paroxysmal supraventricular tachycardia Nicolasa Sheppard Onset: 12/29/2020 Essential hypertension Arlyn Adams M.D. Onset: 2020 Diverticulitis of colon Arlyn Adams M.D. Onset: 12/29 Kidney stone Arlyn Adams M.D. Onset: Abnormal glucose level Arlyn Adams M.D. Onset: 2020 Pure hypercholesterolemia Arlyn Adams M.D. Onset: Obstructive sleep apnea syndrome Arlyn Adams M.D. Ons et: 12/29/2020 Social History Type Date Description Comments Sex Unknown Tobacco Use Start: Unknown Never Smoked Cigarettes ETOH Use Occasionally consumes alcohol so cial drinker Tobacco Use Start: Unknown Patient has never smoked Exercise Type/Frequency Exercises regularly Exercise Type/Frequency Does not exercise Guns in Home No Allergies and adverse reactions Active Allergies Criticality Reaction | Severity Comments Date Clindamycin Unable to assess criticality macular, pap ular rash 11/28/2019 Cephalexin Unable to assess criticality Itching rash 11/20/19 03/22/2020 Contrast Dye Unable to assess criticality Severe ANAPHYLAXIS 0 03/22/2020 Percocet Unable to assess criticality rash 03/22/2020 Inactive Allergies NKDA Unable to assess criticality 09/18/2017 NKDA Unable to assess criticality 10/28/2019 Medications Active Medications SIG Qnty Indications Ordering Provide r Date Naproxen 250mg Tablets 1 by mouth twice times a day W/Food prn ortho Arlyn Adams M.D. 0 04/06/2021 Losartan Potassium 25mg Tablets 1/2 by mouth qhs 90tabs Arlyn Adams M.D. 12/30/19 21 Probiotic Capsules 1 by mouth every day Arlyn Adams M.D. 03/22/2020 Vitamin D3 125mcg (5000 Ut) Capsul es 1 by mouth every day Cris Hickey FNP 03/19/2020 Excedrin Migraine [phone] Tab lets 2 q 6hrs prn po migraine Arlyn Adams M.D. 05/2020 Acetaminophen 500mg Tablets 2 by mouth every 8 hours as needed for pain Arlyn harmon M.D. 03/19/2020 Benadryl Allergy 25mg Tablets 1 po q6h prn rash Arlyn Adams M.D. 11/28/19 20 Multivitamin Adult Tablets 1 by mouth every day ALEX Persaud 09/18/2017 Metamucil 0.36gm Capsules 1 by mouth every day Unknown Anastrozole 1mg Tablets 1 layo Unknown Immunizations Description No Information Available Vital Signs Date Vital Result Comment 04/06/2021 3:01pm BP Systolic 114 mmHg RT Arm BP Diastolic 60 mmHg RT Arm Heart Rate 92 /min Height 62.0 inches 5'2" Weight 183.00 lb BMI (Body Mass Index) 33.5 kg/m2 12/29/2020 2:44pm BP Systolic 112 mmHg RT Arm BP Diastolic 70 mmHg RT Arm Heart Rate 80 /min Height 62.0 inches 5'2" Weight 189.00 lb BMI (Body Mass Index) 34.6 kg/m2 Results Test Acquired Date Facility Test Result H/L Range Note CBC With Differential 01/24/[address] [address] [phone] White Blood Count 6.7 10 Normal 4.0-10.0 Red Blood Count 4.61 10 Normal 4.00-5.40 Hemoglobin 13.6 g/dL Normal 12.0-15.5 Hematocrit 41.2 % Normal 36.0-47.0 Mean Corpuscular Volume 89.4 fl Normal 80.0-96.0 Mean Corpuscular Hemoglobin 29.5 pg Normal 27.0-33.0 Mean Corpuscular HGB Conc 33.0 g/dL Normal 32.0-36.5 Red Cell Distribution Width 12.8 % Normal 11.5-14.5 Platelet Count, Automated 250 10 Normal 150-450 Neutrophils % 55.6 % Normal 36.0-66.0 Lymph % 32.4 % Normal 24.0-44.0 [place] % 8.5 % High 2.0-8.0 Eos % 2.5 % Normal 0.0-3.0 Baso % 0.6 % Normal 0.0-1.0 Immature Granulocyte % 0.4 % Normal 0-3.0 Nucleated Red Blood Cell % 0.0 % Normal 0-0 Neutrophils # 3.7 10 Normal 1.5-8.5 Lymph # 2.2 10 Normal 1.5-5.0 [place] # 0.6 10 Normal 0.0-0.8 Eos # 0.2 10 Normal 0.0-0.5 Baso # 0.0 10 Normal 0.0-0.2 Comprehensive Metabolic Profil 01/24/[address] [address] [phone] Glucose, Fasting 109 mg/dL High 70-100 Blood Urea Nitrogen 17 mg/dL Normal 7-18 Creatinine For GFR 0.65 mg/dL Normal 0.55-1.30 Glomerular Filtration Rate > 60.0 Normal >51 1 Sodium Level 142 mEq/L Normal 136-145 Potassium Serum 3.4 mEq/L Low 3.5-5.1 Chloride Level 112 mEq/L High 98-107 Carbon Dioxide Level 23 mEq/L Normal 21-32 Anion Gap 7 mEq/L Low 8-16 Calcium Level 8.4 mg/dL Low 8.5-10.1 Ast/Sgot 17 U/L Normal 7-37 Alt/SGPT 37 U/L Normal 12-78 Alkaline Phosphatase 72 U/L Normal 45-117 Bilirubin,Total 0.3 mg/dL Normal 0.2-1.0 Total Protein 7.2 GM/DL Normal 6.4-8.2 Albumin 3.6 GM/DL Normal 3.2-5.2 Albumin/Globulin Ratio 1.0 Low 1.2-2.2 Ua Routine 01/18/2021 [facility] nter [address] [place] [id number] [phone] Appearance, Urine CLEAR Normal Clear Color, Urine YELLOW Normal Yellow PH,Urine 5.0 units Normal 5.0-9.0 Specific [place] Urine Auto 1.015 Normal 1.002-1.035 Protein, Urine Auto NEGATIVE mg/dL Normal Negative Glucose, Urine (Ua) Auto NEGATIVE mg/dL Normal Negative Ketone, Urine Auto NEGATIVE mg/dL Normal Negative Urobilinogen, Urine Auto 0.2 mg/dL Normal 0.0-2.0 Bilirubin, Urine Auto NEGATIVE Normal Negative Nitrite, Urine Auto NEGATIVE Normal Negative Leukocyte Esterase, Urine Auto NEGATIVE Normal Negative Blood, Urine Blood NEGATIVE Normal Negative WBC, Urine Auto 1 /HPF Normal 0-3 RBC, Urine Auto 0 /HPF Normal 0-3 Bacteria, Urine Auto NEGATIVE Normal Negative Squamous Epithelial Cell Ur AU 0 /HPF Normal 0-6 Hyaline Cast, Urine Auto 0 /LPF Normal 0-1 Laboratory test finding 01/18/[address] [address] [phone] HCG Serum Qualitative NEGATIVE Normal Negative Anti-Smooth Muscle Antibody 5 units Normal 0-19 2 CBC With Differential 01/18/[address] [address] [phone] White Blood Count 6.7 10 Normal 4.0-10.0 Red Blood Count 4.77 10 Normal 4.00-5.40 Hemoglobin 14.3 g/dL Normal 12.0-15.5 Hematocrit 43.2 % Normal 36.0-47.0 Mean Corpuscular Volume 90.6 fl Normal 80.0-96.0 Mean Corpuscular Hemoglobin 30.0 pg Normal 27.0-33.0 Mean Corpuscular HGB Conc 33.1 g/dL Normal 32.0-36.5 Red Cell Distribution Width 12.7 % Normal 11.5-14.5 Platelet Count, Automated 267 10 Normal 150-450 Neutrophils % 57.4 % Normal 36.0-66.0 Lymph % 29.9 % Normal 24.0-44.0 [place] % 8.7 % High 2.0-8.0 Eos % 2.0 % Normal 0.0-3.0 Baso % 0.9 % Normal 0.0-1.0 Immature Granulocyte % 1.1 % Normal 0-3.0 Nucleated Red Blood Cell % 0.0 % Normal 0-0 Neutrophils # 3.8 10 Normal 1.5-8.5 Lymph # 2.0 10 Normal 1.5-5.0 [place] # 0.6 10 Normal 0.0-0.8 Eos # 0.1 10 Normal 0.0-0.5 Baso # 0.1 10 Normal 0.0-0.2 Laboratory test finding 12/28/2020 [facility] Regional Sales Manager: [place] [address] [phone] Glucose 112 mg/dL High 74 - 99 3 Lipid Profile 12/28/2020 [facility] Regional Sales Manager: [place] [address] [phone] Cholesterol 203 mg/dL High 131 - 200 Triglycerides 390 mg/dL High 30 - 150 HDL Cholesterol 44 mg/dL 35 - 60 LDL (Calculated) 81 CALC 50 - 159 Basic Metabolic Panel 12/28/2020 [facility] Regional Sales Manager: [place] [address] [phone] Glucose 113 mg/dL High 74 - 99 4 BUN 22 mg/dL High 7 - 18 Creatinine 1.0 mg/dL 0.6 - 1.3 Sodium 139 mEq/L 136 - 145 Potassium 4.2 mEq/L 3.5 - 5.1 Chloride 104 mEq/L 98 - 107 Carbon Dioxide 24 mEq/L 21 - 32 Calcium 8.8 mg/dL 8.5 - 10.1 GFR 58 mL/min Low >60 GFR >= 60 mL/min >60 5 Laboratory test finding 12/28/2020 [facility] Regional Sales Manager: Dr William Quiroga [place], [place] [id number] [phone] Thyroid Stimulating Hormone 4.95 uIU/mL High 0.3 6 - 3.74 Laboratory test finding 12/28/2020 [facility] Regional Sales Manager: Dr William Quiroga [place], [place] [id number] [phone] T4 Free 0.83 ng/dL 0.76 - 1.46 CBC With Differential 10/22/[address] [address] [phone] White Blood Count 8.8 10 Normal 4.0-10.0 Red Blood Count 4.54 10 Normal 4.00-5.40 Hemoglobin 13.6 g/dL Normal 12.0-15.5 Hematocrit 42.4 % Normal 36.0-47.0 Mean Corpuscular Volume 93.4 fl Normal 80.0-96.0 Mean Corpuscular Hemoglobin 30.0 pg Normal 27.0-33.0 Mean Corpuscular HGB Conc 32.1 g/dL Normal 32.0-36.5 Red Cell Distribution Width 13.5 % Normal 11.5-14.5 Platelet Count, Automated 280 10 Normal 150-450 Neutrophils % 64.6 % Normal 36.0-66.0 Lymph % 23.4 % Low 24.0-44.0 [place] % 7.7 % Normal 2.0-8.0 Eos % 2.5 % Normal 0.0-3.0 Baso % 0.7 % Normal 0.0-1.0 Immature Granulocyte % 1.1 % Normal 0-3.0 Nucleated Red Blood Cell % 0.0 % Normal 0-0 Neutrophils # 5.7 10 Normal 1.5-8.5 Lymph # 2.1 10 Normal 1.5-5.0 [place] # 0.7 10 Normal 0.0-0.8 Eos # 0.2 10 Normal 0.0-0.5 Baso # 0.1 10 Normal 0.0-0.2 Comprehensive Metabolic Profil 10/22/2020 [place] [address] [place] [id number] [phone] Glucose, Fasting 121 mg/dL High 70-100 Blood Urea Nitrogen 22 mg/dL High 7-18 Creatinine For GFR 0.59 mg/dL Normal 0.55-1.30 Glomerular Filtration Rate > 60.0 Normal >51 6 Sodium Level 140 mEq/L Normal 136-145 Potassium Serum 3.8 mEq/L Normal 3.5-5.1 Chloride Level 109 mEq/L High 98-107 Carbon Dioxide Level 27 mEq/L Normal 21-32 Anion Gap 4 mEq/L Low 8-16 Calcium Level 8.8 mg/dL Normal 8.5-10.1 Ast/Sgot 9 U/L Normal 7-37 Alt/SGPT 26 U/L Normal 12-78 Alkaline Phosphatase 70 U/L Normal 45-117 Bilirubin,Total 0.4 mg/dL Normal 0.2-1.0 Total Protein 7.7 GM/DL Normal 6.4-8.2 Albumin 3.7 GM/DL Normal 3.2-5.2 Albumin/Globulin Ratio 0.9 Low 1.2-2.2 1 Units are mL/min/1.73 m2 Chronic Kidney Disease Staging per NKF: Stage I & II GFR >=60 Normal to Mildly Decreased Stage III GFR 30-59 Moderately Decreased Stage IV GFR 15-29 Severely Decreased Stage V GFR <15 Very Little GFR Left ESRD GFR <15 on COMPUTER TESTER 2 Negative 0 - 19 Weak positive 20 - 30 Moderate to strong positive >30 . Actin Antibodies are found in 52-85% of patients with autoimmune hepatitis or chronic active hepatitis and in 22% of patients with primary biliary cirrhosis. Performed at: RN - [facility] [address] [id number] Regional Sales Manager: Julia Garcia MD, Phone: [phone] 3 100-125 mg/dL PRE-DIABET ES/FASTING >126 mg/dL DIABETES/FASTING 4 100-125 mg/dL PRE-DIABET ES/FASTING >126 mg/dL DIABETES/FASTING 5 CHRONIC KIDNEY DISEASE STAGI NG PER NKF STAGE I & II GFR >= 60 NORMAL TO MILDLY DECREASED STAGE III GFR 30-59 MODERATELY DECREASED STAGE IV GFR 15-29 SEVERELY DECREASED STAGE V GFR <15 VERY LITTLE GFR LEFT ESRD GFR <15 ON COMPUTER TESTER 6 Units are mL/min/1.73 m2 Chronic Kidney Disease Staging per NKF: Stage I & II GFR >=60 Normal to Mildly Decreased Stage III GFR 30-59 Moderately Decreased Stage IV GFR 15-29 Severely Decreased Stage V GFR <15 Very Little GFR Left ESRD GFR <15 on COMPUTER TESTER Procedures Date Code Description Status 04/06/2021 02913 Office/Outpatient Established Lo w MDM 20-29 Min Completed 12/29/2020 06669 Office/Outpatient Established Mo d MDM 30-39 Min Completed 07/30/2020 [id number] Colonoscopy Completed 06/08/2020 [id number] Bone Mineral Density Test Comple favian 10/09/2019 [id number] Mammogram Completed 09/23/2019 [id number] Mammogram Completed 09/16/2019 [id number] Mammogram Completed 10/02/2017 [id number] Diabetic Retinal Eye Exam Comple [facility] Medical Devices Description No Information Available Encounters Type Date Location Provider Dx Diagnosis Office Visit 04/06[facility]2021 [facility] C50.919 Malignant neoplasm of unsp s ite of unspecified female breast I47.1 Supraventricular tachycardia I10 Essential (primary) hyperten kyler K57.92 Dvtrcli of intest, part unsp , w/o perf or abscess w/o bleed N20.0 Calculus of kidney R73.09 Other abnormal glucose E78.00 Pure hypercholesterolemia, u nspecified M19.90 Unspecified osteoarthritis, unspecified site K44.9 Diaphragmatic hernia without obstruction or gangrene E66.09 Other obesity due to excess calories Office Visit 12/29/2020 2[facility]p [facility] Z17.0 Estrogen receptor positive s tatus [ER+] C50.919 Malignant neoplasm of unsp s ite of unspecified female breast I47.1 Supraventricular tachycardia I10 Essential (primary) hyperten kyler K57.92 Dvtrcli of intest, part unsp , w/o perf or abscess w/o bleed N20.0 Calculus of kidney R73.09 Other abnormal glucose E78.00 Pure hypercholesterolemia, u nspecified G47.33 Obstructive sleep apnea (surjit lt) (pediatric) R20.2 Paresthesia of skin G47.00 Insomnia, unspecified Assessments Date Code Description Provider 04/06/2021 C50.919 Malignant neoplasm o f unspecified site of unspecified female breast Arlyn Adams M.D. 04/06/2021 I47.1 Supraventricular tachycardia Gagan Adams M.D. 04/06/2021 I10 Essential (primary) hypertension Arlyn Adams M.D. 04/06/2021 K57.92 Diverticulitis of in testine, part unspecified, without perforation or abscess without bleeding Arlyn Adams M.D. 04/06/2021 N20.0 Calculus of kidney Arlyn smith M.D. 04/06/2021 R73.09 Other abnormal glucose Arlyn Adams M.D. 04/06/2021 E78.00 Pure hypercholesterolemia, unspe cified Arlyn Adams M.D. 04/06/2021 M19.90 Unspecified osteoarthritis, unsp ecified site Arlyn Adams M.D. 04/06/2021 K44.9 Diaphragmatic hernia without obs truction or gangrene Arlyn Adams M.D. 04/06/2021 E66.09 Other obesity due to excess rose alvaro Arlyn Adams M.D. 12/29/2020 Z17.0 Estrogen receptor positive statu s [ER+] Arlyn Adams M.D. 12/29/2020 C50.919 Malignant neoplasm o f unspecified site of unspecified female breast Arlyn Adams M.D. 12/29/2020 I47.1 Supraventricular tachycardia Gagan Adams M.D. 12/29/2020 I10 Essential (primary) hypertension Arlyn Adams M.D. 12/29/2020 K57.92 Diverticulitis of in testine, part unspecified, without perforation or abscess without bleeding Arlyn Adams M.D. 12/29/2020 N20.0 Calculus of kidney Arlyn smith M.D. 12/29/2020 R73.09 Other abnormal glucose Arlyn Adams M.D. 12/29/2020 E78.00 Pure hypercholesterolemia, unspe cified Arlyn Adams M.D. 12/29/2020 G47.33 Obstructive sleep apnea (adult) (pediatric) Arlyn Adams M.D. 12/29/2020 R20.2 Paresthesia of skin Arlyn lamb M.D. 12/29/2020 G47.00 Insomnia, unspecified Arlyn jones M.D. 12/28/2020 R73.09 Other abnormal glucose Arlyn Adams M.D. 12/28/2020 R73.09 Other abnormal glucose Lab Sched ule 12/28/2020 E78.00 Pure hypercholesterolemia, unspe ciken Adams M.D. 12/28/2020 E78.00 Pure hypercholesterolemia, unspe cified Lab Schedule 12/28/2020 E07.9 Disorder of thyroid, unspecified Arlyn Adams M.D. 12/28/2020 E07.9 Disorder of thyroid, unspecified Lab Schedule Plan of Treatment Future Appointment(s):* 07/11/2021 11:30 am - [facility] 04/06/2021 - Arlyn Adams M.D.* C50.919 Malignant neoplasm of unspecified site of unspecified female breast * I47.1 Supraventricular tachycardia * I10 Essential (primary) hypertension * K57.92 Diverticulitis of intestine, part unspecified, without perforation or abscess without bleeding * N20.0 Calculus of kidney * R73.09 Other abnormal glucose * E78.00 Pure hypercholesterolemia, unspecified * M19.90 Unspecified osteoarthritis, unspecified site * K44.9 Diaphragmatic hernia without obstruction or gangrene * E66.09 Other obesity due to excess calories * All * New Medication:* Naproxen 250 mg - 1 by mouth twice times a day W/Food prn * Comments:* Health Maintenance. She has had her COVID vaccine Functional Status Description No Information Available Mental Status Description No Information Available Referrals Description No Information Available
--- OUTSIDE RECORDS SUMMARY | 2021-05-09 04:29 | CCD | Continuity of Care Document ---
Author Author Zahra Adams M.D Organization Unknown Address [address] [facility] [address] [place] [address] Phone [phone] Care Team Providers Care Family Medicine Physician Assistant Name Role Phone Sushila, Geni GEAR ROOM KEEPER AUTM [phone] [facility] Hematology/Oncology AUTM [phone] Blake Presley MD AUTM [phone] Problems Active Problems Provider Date History of bilateral mastectomy Arlyn Adams M.D. Onse t: 11/24/2019 Infiltrating ductal carcinoma of breast, stage 3 Arlyn Velasco M.D. Onset: 11/24/2019 Paroxysmal supraventricular tachycardia iNcolasa Sheppard Onset: 12/29/2020 Essential hypertension Arlyn Adams [...] day Cris Hickey FNP 03/19/2020 Excedrin Migraine [phone] Tab lets 2 q 6hrs prn po [...] Date Facility Test Result H/L Range Note Lipid Panel 04/19/2021 [facility] nter [address] [place] [phone] Triglycerides Level 221 mg/dL High <150 Cholesterol Level 194 mg/dL Normal <200 HDL Cholesterol 49 mg/dL Normal >40 LDL Cholesterol 101 mg/dL High <100 Non-HDL-C 145 mg/dL Normal Cholesterol Risk Ratio 3.959 Normal <5 Basic Metabolic Profile 04/19/[address] [address] [phone] Glucose, Fasting 85 mg/dL Normal 70-100 Blood Urea Nitrogen 20 mg/dL High 7-18 Creatinine For GFR 0.65 mg/dL Normal 0.55-1.30 Glomerular Filtration Rate > 60.0 Normal >51 1 Sodium Level 141 mEq/L Normal 136-145 Potassium Serum 3.9 mEq/L Normal 3.5-5.1 Chloride Level 109 mEq/L High 98-107 Carbon Dioxide Level 27 mEq/L Normal 21-32 Anion Gap 5 mEq/L Low 8-16 Calcium Level 8.6 mg/dL Normal 8.5-10.1 CBC With Differential 01/24/[address] [id number] [phone] White Blood Count 6.7 10 Normal 4.0-10.0 [...] 36.0-66.0 Lymph % 32.4 % Normal 24.0-44.0 [place] % 8.5 % High 2.0-8.0 Eos % 2.5 % Normal 0.0-3.0 Baso % 0.6 % Normal 0.0-1.0 Immature Granulocyte % 0.4 % Normal 0-3.0 Nucleated Red Blood Cell % 0.0 % Normal 0-0 Neutrophils # 3.7 10 Normal 1.5-8.5 Lymph # 2.2 10 Normal 1.5-5.0 [place] # 0.6 10 Normal 0.0-0.8 Eos # 0.2 10 Normal 0.0-0.5 Baso # 0.0 10 Normal 0.0-0.2 Comprehensive Metabolic Profil 01/24/2021 [facility] [address] [place] [address] [phone] Glucose, Fasting 109 mg/dL High 70-100 Blood Urea Nitrogen 17 mg/dL Normal 7-18 Creatinine For GFR 0.65 mg/dL Normal 0.55-1.30 Glomerular Filtration Rate > 60.0 Normal >51 2 Sodium Level 142 mEq/L Normal 136-145 Potassium [...] Ratio 1.0 Low 1.2-2.2 Ua Routine 01/18/2021 [facility] nter [address] [place] [address] [phone] Appearance, Urine CLEAR Normal Clear Color, Urine YELLOW Normal Yellow PH,Urine 5.0 units Normal 5.0-9.0 Specific Gem Urine Auto 1.015 Normal 1.002-1.035 Protein, Urine [...] /LPF Normal 0-1 Laboratory test finding 01/18/[address] [address] [phone] HCG Serum Qualitative NEGATIVE Normal Negative Anti-Smooth Muscle Antibody 5 units Normal 0-19 3 CBC With Differential 01/18/[address] [address] [phone] White Blood Count 6.7 10 Normal 4.0-10.0 [...] 36.0-66.0 Lymph % 29.9 % Normal 24.0-44.0 [place] % 8.7 % High 2.0-8.0 Eos % 2.0 % Normal 0.0-3.0 Baso % 0.9 % Normal 0.0-1.0 Immature Granulocyte % 1.1 % Normal 0-3.0 Nucleated Red Blood Cell % 0.0 % Normal 0-0 Neutrophils # 3.8 10 Normal 1.5-8.5 Lymph # 2.0 10 Normal 1.5-5.0 [place] # 0.6 10 Normal 0.0-0.8 Eos # 0.1 10 Normal 0.0-0.5 Baso # 0.1 10 Normal 0.0-0.2 Laboratory test finding 12/28/2020 [place] [employer] anne Supervisor [employer] Bait Processing: [place] [address] [phone] Glucose 112 mg/dL High 74 - 99 4 Lipid Profile 12/28/2020 [facility] Supervisor Fish Bait Processing: [place] [address] [phone] Cholesterol 203 mg/dL High 131 - 200 Triglycerides 390 mg/dL High 30 - 150 HDL Cholesterol 44 mg/dL 35 - 60 LDL (Calculated) 81 CALC 50 - 159 Basic Metabolic Panel 12/28/2020 [facility] Supervisor [employer] Bait Processing: [place] [address] [phone] Glucose 113 mg/dL High 74 - 99 5 BUN 22 mg/dL High 7 - 18 Creatinine 1.0 mg/dL 0.6 - 1.3 Sodium 139 mEq/L 136 - 145 Potassium 4.2 mEq/L 3.5 - 5.1 Chloride 104 mEq/L 98 - 107 Carbon Dioxide 24 mEq/L 21 - 32 Calcium 8.8 mg/dL 8.5 - 10.1 GFR 58 mL/min Low >60 GFR >= 60 mL/min >60 6 Laboratory test finding 12/28/2020 [place] [employer] Professor ingrid rodríguez Supervisor Fish Bait Processing: [place] [address] [phone] Thyroid Stimulating Hormone 4.95 uIU/mL High 0.3 6 - 3.74 Laboratory test finding 12/28/2020 [place] [employer] Professor ingrid rodríguez Supervisor Fish Bait Processing: [place] [address] [phone] Free 0.83 ng/dL 0.76 - 1.46 1 Units are mL/min/1.73 m2 Chronic Kidney Disease Staging per NKF: Stage I & II GFR >=60 Normal to Mildly Decreased Stage III GFR 30-59 Moderately Decreased Stage IV GFR 15-29 Severely Decreased Stage V GFR <15 Very Little GFR Left ESRD GFR <15 on MANAGER INTENSIVE CARE 2 Units are mL/min/1.73 m2 Chronic Kidney Disease Staging per NKF: Stage I & II GFR >=60 Normal to Mildly Decreased Stage III GFR 30-59 Moderately Decreased Stage IV GFR 15-29 Severely Decreased Stage V GFR <15 Very Little GFR Left ESRD GFR <15 on MANAGER INTENSIVE CARE 3 Negative 0 - 19 Weak positive 20 - 30 Moderate to strong positive >30 . Actin Antibodies are found in 52-85% of patients with autoimmune hepatitis or chronic active hepatitis and in 22% of patients with primary biliary cirrhosis. Performed at: RN - [facility] [address] [id number] Supervisor Fish Bait Processing: Julia Garcia MD, Phone: [phone] 4 100-125 mg/dL PRE-DIABET ES/FASTING >126 mg/dL DIABETES/FASTING 5 100-125 mg/dL PRE-DIABET ES/FASTING >126 mg/dL DIABETES/FASTING 6 CHRONIC KIDNEY DISEASE STAGI NG PER NKF STAGE I & II GFR >= 60 NORMAL TO MILDLY DECREASED STAGE III GFR 30-59 MODERATELY DECREASED STAGE IV GFR 15-29 SEVERELY DECREASED STAGE V GFR <15 VERY LITTLE GFR LEFT ESRD GFR <15 ON MANAGER INTENSIVE CARE Procedures Date Code Description Status 04/06/2021 09236 Office/Outpatient Established Lo w MDM 20-29 Min Completed 12/29/2020 31857 Office/Outpatient Established Mo d MDM 30-39 Min Completed 07/30/2020 [id number] Colonoscopy Completed 06/08/2020 [id number] Bone Mineral Density Test Comple [facility] 10/09/2019 [id number] Mammogram Completed 09/23/2019 [id number] Mammogram Completed 09/16/2019 [id number] Mammogram Completed 10/02/2017 [id number] Diabetic Retinal Eye Exam Comple [facility] Medical Devices Description No Information Available Encounters Type Date Location Provider Dx Diagnosis Office Visit 04/06/2021 3[facility]p [facility] C50.919 Malignant neoplasm [...] to excess calories Office Visit 12/29/2020 2:30p [facility] Gagan Adams M.D. Z17.0 Estrogen receptor positive s [...] Sched ule 12/28/2020 E78.00 Pure hypercholesterolemia, unspe cified Arlyn Adams M.D. 12/28/2020 E78.00 Pure hypercholesterolemia, unspe cified Lab Schedule 12/28/2020 E07.9 Disorder of thyroid, unspecified Arlyn Adams M.D. 12/28/2020 E07.9 Disorder of thyroid, unspecified Lab Schedule Plan of Treatment Future Appointment(s):* 07/11/2021 11:30 am - [facility] [place] [facility] 04/06/2021 - Arlyn Adams M.D.* [...]
--- OUTSIDE RECORDS SUMMARY | 2021-05-09 04:29 | CCD | Continuity of Care Document ---
Author Author Zahra Adams M.D Organization Unknown Address [address] [facility] [address] [place] [address] Phone [phone] Care Team Providers Care Information Systems Consultant Name Role Phone Sushila, Geni FARM EQUIPMENT MECHANIC AUTM [phone] [facility] Hematology/Oncology AUTM [phone] Blake Presley MD AUTM [phone] Problems Active Problems Provider Date History of [...] day Cris Hickey FNP 03/19/2020 Excedrin Migraine [phone] Tab lets 2 q 6hrs prn po [...] Result H/L Range Note Lipid Panel 04/19/2021 [facility] nter [address] [place] [address] [id number] [phone] Triglycerides Level 221 mg/dL High <150 Cholesterol Level 194 mg/dL Normal <200 HDL Cholesterol 49 mg/dL Normal >40 LDL Cholesterol 101 mg/dL High <100 Non-HDL-C 145 mg/dL Normal Cholesterol Risk Ratio 3.959 Normal <5 Basic Metabolic Profile 04/19/[address] [address] [phone] Glucose, Fasting 85 mg/dL Normal 70-100 Blood [...] mg/dL Normal 8.5-10.1 CBC With Differential 01/24/[address] [id number] [phone] White Blood Count 6.7 10 Normal 4.0-10.0 [...] 36.0-66.0 Lymph % 32.4 % Normal 24.0-44.0 Bibb % 8.5 % High 2.0-8.0 Eos % 2.5 % Normal 0.0-3.0 Baso % 0.6 % Normal 0.0-1.0 Immature Granulocyte % 0.4 % Normal 0-3.0 Nucleated Red Blood Cell % 0.0 % Normal 0-0 Neutrophils # 3.7 10 Normal 1.5-8.5 Lymph # 2.2 10 Normal 1.5-5.0 Bibb # 0.6 10 Normal 0.0-0.8 Eos # 0.2 10 Normal 0.0-0.5 Baso # 0.0 10 Normal 0.0-0.2 Comprehensive Metabolic Profil 01/24/2021 [facility] [address] [place] [address] [phone] Glucose, Fasting 109 mg/dL High 70-100 Blood [...] Ratio 1.0 Low 1.2-2.2 Ua Routine 01/18/2021 [facility] nter [address] [place] [address] [phone] Appearance, Urine CLEAR Normal Clear Color, Urine YELLOW Normal Yellow PH,Urine 5.0 units Normal 5.0-9.0 Specific [place] Urine Auto 1.015 Normal 1.002-1.035 Protein, Urine [...] /LPF Normal 0-1 Laboratory test finding 01/18/[address] [address] [phone] HCG Serum Qualitative NEGATIVE Normal Negative Anti-Smooth Muscle Antibody 5 units Normal 0-19 3 CBC With Differential 01/18/[address] [address] [phone] White Blood Count 6.7 10 Normal 4.0-10.0 [...] 36.0-66.0 Lymph % 29.9 % Normal 24.0-44.0 Bibb % 8.7 % High 2.0-8.0 Eos % 2.0 % Normal 0.0-3.0 Baso % 0.9 % Normal 0.0-1.0 Immature Granulocyte % 1.1 % Normal 0-3.0 Nucleated Red Blood Cell % 0.0 % Normal 0-0 Neutrophils # 3.8 10 Normal 1.5-8.5 Lymph # 2.0 10 Normal 1.5-5.0 Bibb # 0.6 10 Normal 0.0-0.8 Eos # 0.1 10 Normal 0.0-0.5 Baso # 0.1 10 Normal 0.0-0.2 Laboratory test finding 12/28/2020 [place] [employer] ingrid rodríguez Line Server: [place] [address] [phone] Glucose 112 mg/dL High 74 - 99 4 Lipid Profile 12/28/2020 [place] [facility] Line Server: [place] [address] [phone] Cholesterol 203 mg/dL High 131 - 200 Triglycerides 390 mg/dL High 30 - 150 HDL Cholesterol 44 mg/dL 35 - 60 LDL (Calculated) 81 CALC 50 - 159 Basic Metabolic Panel 12/28/2020 [place] [facility] Line Server: Dr William [place] [address] [phone] Glucose 113 mg/dL High 74 - 99 [...] mL/min >60 6 Laboratory test finding 12/28/2020 [place] [employer] ingrid rodríguez Line Server: Dr William Quiroga [place], [place] [id number] [phone] Thyroid Stimulating Hormone 4.95 uIU/mL High 0.3 6 - 3.74 Laboratory test finding 12/28/2020 [place] [employer] [employer] ingrid rodríguez Line Server: [place] [address] [phone] T4 Free 0.83 ng/dL 0.76 - 1.46 CBC With Differential 10/22/2020 [facility] [address] [place] [address] [phone] White Blood Count 8.8 10 Normal 4.0-10.0 [...] 36.0-66.0 Lymph % 23.4 % Low 24.0-44.0 Bibb % 7.7 % Normal 2.0-8.0 Eos % 2.5 % Normal 0.0-3.0 Baso % 0.7 % Normal 0.0-1.0 Immature Granulocyte % 1.1 % Normal 0-3.0 Nucleated Red Blood Cell % 0.0 % Normal 0-0 Neutrophils # 5.7 10 Normal 1.5-8.5 Lymph # 2.1 10 Normal 1.5-5.0 Bibb # 0.7 10 Normal 0.0-0.8 Eos # 0.2 10 Normal 0.0-0.5 Baso # 0.1 10 Normal 0.0-0.2 Comprehensive Metabolic Profil 10/22/2020 [place] [id number] [phone] Glucose, Fasting 121 mg/dL High 70-100 Blood Urea Nitrogen 22 mg/dL High 7-18 Creatinine For GFR 0.59 mg/dL Normal 0.55-1.30 Glomerular Filtration Rate > 60.0 Normal >51 7 Sodium Level 140 mEq/L Normal 136-145 Potassium [...] Little GFR Left ESRD GFR <15 on ORGANIZATIONAL EFFECTIVENESS CONSULTANT 2 Units are mL/min/1.73 m2 Chronic Kidney Disease Staging per NKF: Stage I & II GFR >=60 Normal to Mildly Decreased Stage III GFR 30-59 Moderately Decreased Stage IV GFR 15-29 Severely Decreased Stage V GFR <15 Very Little GFR Left ESRD GFR <15 on ORGANIZATIONAL EFFECTIVENESS CONSULTANT 3 Negative 0 - 19 Weak positive 20 - 30 Moderate to strong positive >30 . Actin Antibodies are found in 52-85% of patients with autoimmune hepatitis or chronic active hepatitis and in 22% of patients with primary biliary cirrhosis. Performed at: RN - [facility] [address] [phone] Line Server: Julia Garcia MD, Phone: [phone] 4 100-125 mg/dL PRE-DIABET ES/FASTING >126 mg/dL DIABETES/FASTING 5 100-125 mg/dL PRE-DIABET ES/FASTING >126 mg/dL DIABETES/FASTING 6 CHRONIC KIDNEY DISEASE STAGI NG PER NKF STAGE I & II GFR >= 60 NORMAL TO MILDLY DECREASED STAGE III GFR 30-59 MODERATELY DECREASED STAGE IV GFR 15-29 SEVERELY DECREASED STAGE V GFR <15 VERY LITTLE GFR LEFT ESRD GFR <15 ON ORGANIZATIONAL EFFECTIVENESS CONSULTANT 7 Units are mL/min/1.73 m2 Chronic Kidney Disease Staging per NKF: Stage I & II GFR >=60 Normal to Mildly Decreased Stage III GFR 30-59 Moderately Decreased Stage IV GFR 15-29 Severely Decreased Stage V GFR <15 Very Little GFR Left ESRD GFR <15 on ORGANIZATIONAL EFFECTIVENESS CONSULTANT Procedures Date Code Description Status 04/06/2021 63395 Office/Outpatient Established Lo w MDM 20-29 Min Completed 12/29/2020 22141 Office/Outpatient Established Mo d MDM 30-39 Min Completed 07/30/2020 29473869 Colonoscopy Completed 06/08/2020 [id number] Bone Mineral Density Test Comple [facility] 10/09/2019 [id number] Mammogram Completed 09/23/2019 [id number] Mammogram Completed 09/16/2019 [id number] Mammogram Completed 10/02/2017 [id number] Diabetic Retinal Eye Exam Comple [facility] Medical Devices Description No Information Available Encounters Type Date Location Provider Dx Diagnosis Office Visit 04/06/2021 3:00p [place] [facility] PLui Adams M.D. C50.919 Malignant neoplasm [...] to excess calories Office Visit 12/29/2020 2:30p [place] Intern[facility]haya rodr[facility]guez M.D. Z17.0 Estrogen receptor positive s tatus [...] 11:30 am - Arlyn Adams M.D. at [facility] 04/06/2021 - Arlyn Adams M.D.* C50.919 Malignant [...]
--- OUTSIDE RECORDS SUMMARY | 2021-05-09 04:30 | CCD | Continuity of Care Document ---
Author Author Zahra LOVING Organization Unknown Address [address] [place] [address], [facility] [address] [place] [address] Phone [phone] Care Team Providers Care Product Safety Head Name Role Phone Yina Deirdre JOHNSON AUTM [phone] Arlyn Adams MD AUTM [phone] Problems Description No Information Available Social History Type Date Description Comments Sex Unknown ETOH Use Rarely consumes alcohol Tobacco Use Start: Unknown Denies Smoking Allergies, Adverse Reactions, Alerts Description No Known Drug Allergies Medications Description No Information Available Immunizations Description No Information Available Vital Signs Date Vital Result Comment 03/23/2021 11:39am Body Temperature 97.1 F Height 62 inches 5'2" Weight 184.00 lb BMI (Body Mass Index) 33.7 kg/m2 04/22/2018 12:32pm Body Temperature 98.4 F Height 62 inches 5'2" Weight 180.00 lb BMI (Body Mass Index) 32.9 kg/m2 Results Description No Information Available Procedures Date Code Description Status 03/23/2021 23553 X-Ray Foot Complete Completed 03/23/2021 31906 X-Ray Foot Complete Completed 03/23/2021 29948 X-Ray Knee Complete W/Obliques & Tunnel And/Or Standing Views Completed 03/23/2021 89191 X-Ray Knee Complete W/Obliques & Tunnel And/Or Standing Views Completed Medical Devices Description No Information Available Encounters Description No Information Available Assessments Date Code Description Provider 03/23/2021 S80.02xA Contusion of left knee, initial encounter Michael Maldonado 03/23/2021 S80.02xA Contusion of left knee, initial encounter ELISEO Lynch 03/23/2021 S80.01xA Contusion of right knee, initial encounter Nuha Maldonado.AAltagracia 03/23/2021 S80.01xA Contusion of right knee, initial encounter EILSEO Lynch 03/23/2021 S90.32xA Contusion of left foot, initial encounter Nuha Maldonado.A. 03/23/2021 S90.32xA Contusion of left foot, initial encounter ELISEO Lynch 03/23/2021 S90.31xA Contusion of right foot, initial encounter Nuha Maldonado.AAltagracia 03/23/2021 S90.31xA Contusion of right foot, initial encounter ELISEO Lynch 03/23/2021 M17.12 Unilateral primary osteoarthriti s, left knee Supa Loving P.A. 03/23/2021 M17.12 Unilateral primary osteoarthriti s, left knee ELISEO Lynch 03/23/2021 M17.11 Unilateral primary osteoarthriti s, right knee Supa Loving, P.A. 03/23/2021 M17.11 Unilateral primary osteoarthriti s, right knee ELISEO Lynch Plan of Treatment 03/23/2021 - Sup[facility] Loving, P.A.* S80.02xA Contusion of left knee, initial encounter* Follow up:* PRN * S80.01xA Contusion of right knee, initial encounter * S90.32xA Contusion of left foot, initial encounter * S90.31xA Contusion of right foot, initial encounter * M17.12 Unilateral primary osteoarthritis, left knee * M17.11 Unilateral primary osteoarthritis, right knee Functional Status Description No Information Available Mental Status Description No Information Available Referrals Description No Information Available
--- OUTSIDE RECORDS SUMMARY | 2021-05-09 04:30 | CCD | Continuity of Care Document ---
Author Author Zahra CRAIG MD Organization Unknown Address [address] [place] [address] Phone [phone] Care Team Providers Care Electronic Publishing Specialist Name Role Phone Arlyn Adams MD AUT [phone] Problems Description No Information Available Social History Type Date Description Comments Sex Unknown Tobacco Use Start: Unknown Never Smoked Cigarettes Smoking Status Reviewed: 03/30/21 Never Smoked Cigarettes ETOH Use Non-smoker, Occasional Drinker, Non-drug User Tobacco Use Start: Unknown Patient has never smoked Exercise Type/Frequency Does not exercise Allergies, Adverse Reactions, Alerts Active Allergies Criticality Reaction | Severity Comments Date Contrast Dye Unable to assess criticality 09/08/2020 Oxycodone Unable to assess criticality 09/08/2020 Cephalexin Unable to assess criticality 09/08/2020 Adhesives Unable to assess criticality 09/08/2020 Clindamycin Unable to assess criticality 09/08/2020 Tapentadol Unable to assess criticality 09/08/2020 Medications Active Medications SIG Qnty Indications Ordering Provide r Date Anastrozole 1mg Tablets 1 by mouth every day Unknown Metamucil 0.52gm Capsules two a day by mouth Unknown Probiotic Capsules 1 by mouth Twice a day Unknown Tylenol Extra Strength 500mg Tablets prn Unknown Multivitamin Tablets Unknown Ondansetron 8mg Tablets Dispers tid /Nausea Unknown Fish Oil 1000mg Capsules Harriett y Unknown Excedrin Migraine [phone] Tab lets prn Unknown Vitamin D3 125mcg (5000 Ut) Capsul es Daily Unknown Losartan Potassium 25mg Tablets Daily Unknown Immunizations Description No Information Available Vital Signs Date Vital Result Comment 09/08/2020 7:47am BP Systolic 122 mmHg BP Diastolic 72 mmHg Height 61.5 inches 5'1.50" Weight 181.00 lb BMI (Body Mass Index) 33.6 kg/m2 BSA (Body Surface Area) 1.82 m2 Results Description No Information Available Procedures Date Code Description Status 03/30/2021 62888 Office/Outpatient Established [facility] 10-19 Min Completed Medical Devices Description No Information Available Encounters Type Date Location Provider Dx Diagnosis Office Visit 03/30/2021 11:00a [facility] mortgage or loan underwriter Shyann Craig MD Z9 1.89 Oth personal risk factors, not elsewhere classified Z85.3 Personal history of malignan t neoplasm of breast Assessments Date Code Description Provider 03/30/2021 Z91.89 Other specified pers onal risk factors, not elsewhere classified Shyann Craig MD 03/30/2021 Z85.3 Personal history of malignant ne oplasm of breast Shyann Craig MD Plan of Treatment No Information Available Functional Status Description No Information Available Mental Status Description No Information Available Referrals Description No Information Available
--- OUTSIDE RECORDS SUMMARY | 2021-05-09 04:30 | CCD | Continuity of Care Document ---
Author Author Zahra LOVING Organization Unknown Address [address] [place] [address], [facility] [address] [place] [address] Phone [phone] Care Team Providers Care Repairer Art Objects Name Role Phone Yina Deirdre JOHNSON AUTM [phone] Arlyn Adasm MD AUTM [phone] Problems Active Problems Provider Date Pure hypercholesterolemia Michael Maldonado Onset: 03/24/2021 Social History Type Date Description Comments Sex Unknown ETOH Use Rarely consumes alcohol Tobacco Use Start: Unknown Patient has never smoked Allergies, Adverse Reactions, Alerts Active Allergies Criticality Reaction | Severity Comments Date Oxycodone Unable to assess criticality 03/24/2021 Cephalexin Unable to assess criticality 03/24/2021 Clindamycin Unable to assess criticality 03/24/2021 ct scan dye Unable to assess criticality 03/24/2021 Inactive Allergies NKDA Unable to assess criticality 02/21/2018 Medications Active Medications SIG Qnty Indications Ordering Provide r Date Clarithromycin 500mg Tablets Take 1 Tablet By Mouth Every 12 Hours Unknown 00 Metronidazole 500mg Tablets Take 1 Tablet By Mouth Three Times A Day For 10 Days Unknown Cefuroxime Axetil 500mg Tablets Take 1 Tablet By Mouth Twice A Day For 10 Days Unknown Peg-3350/Nacl/Na Bicarbonate/KCL 420gm Solution Rec Use as Directed John Brizuela M D Magnesium Citrate 1.745GM/30ML Radha ution Use as Directed John Brizuela MD Hydromorphone HCL 2mg Tablets Take 1 Tablet By Mouth Every 6 Hours as Needed For Pain. Maximum Daily Dose Is 4 Unknown Mupirocin 2% Ointment Unknown Lisinopril 2.5mg Tablets Unknown Bisoprolol Fumarate 5mg Tablets Unknown Rosuvastatin Calcium 20mg Tablets Unknown Tramadol HCL 50mg Tablets Take 1 Tablet By Mouth Every 4 Hours as Needed To Take Upon Completion Of Oxycod Unknown Ketorolac Tromethamine 10mg Tablet s Take 1 Tablet By Mouth Every 6 Hours Unknown Anastrozole 1mg Tablets Take 1 Tablet By Mouth Daily Micky Hadley MD Aprepitant 40mg Capsules Take 1 Capsule By Mouth Within 3 Hours Prior To Surgery Unknown Scopolamine 1mg/3Days Patches 72HR Unknown Losartan Potassium 25mg Tablets Unknown Sulfamethoxazole/Trimethoprim DS 800-160mg Tablets Take 1 Tablet By Mouth Every 12 Hours Unk nown Levofloxacin 750mg Tablets Take 2 Tablets By Mouth For One Dose Then 1 Tablet Every Day Un known Gentamicin Sulfate 0.1% Ointment Apply Topically Affected Incision Areas Twice Daily Un known Ondansetron HCL 4mg Tablets Take 1 Tablet By Mouth Every 6 Hours as Needed Fornausea And Vomiting Unknown Fluconazole 150mg Tablets Unknown Nystatin 175470Nmlf/ML Suspension Swish And Swallow 4-6 ML 4 Times Daily X5days Unknown Wal-Mucil 0.52gm Capsules Take 1 Capsule By Mouth Twice Daily Bob Zuniga MD Immunizations Description No Information Available Vital Signs Date Vital Result Comment 03/23/2021 11:39am Body Temperature 97.1 F Height 62 inches 5'2" Weight 184.00 lb BMI (Body Mass Index) 33.7 kg/m2 04/22/2018 12:32pm Body Temperature 98.4 F Height 62 inches 5'2" Weight 180.00 lb BMI (Body Mass Index) 32.9 kg/m2 Results Description No Information Available Procedures Date Code Description Status 03/23/2021 06862 Office/Outpatient Established Mo d MDM 30-39 Min Completed 03/23/2021 32053 X-Ray Foot Complete Completed 03/23/2021 85429 X-Ray Knee Complete W/Obliques & Tunnel And/Or Standing Views Completed Medical Devices Description No Information Available Encounters Type Date Location Provider Dx Diagnosis Office Visit 03/23/2021 11:00a [facility] S80.02xA Contusion of left knee, initial encounter S80.01xA Contusion of right knee, ini tial encounter S90.32xA Contusion of left foot, init ial encounter S90.31xA Contusion of right foot, ini tial encounter M17.12 Unilateral primary osteoarth ritis, left knee M17.11 Unilateral primary osteoarth ritis, right knee M17.0 Bilateral primary osteoarthr itis of knee Assessments Date Code Description Provider 03/23/2021 S80.02xA Contusion of left knee, initial encounter Nuha Maldonado.AAltagracia 03/23/2021 S80.01xA Contusion of right knee, initial encounter [facility] Loving P.A. 03/23/2021 S80.02xA Contusion of left knee, initial encounter ELISEO Lynch 03/23/2021 S90.32xA Contusion of left foot, initial encounter [facility] Loving P.A. 03/23/2021 S90.31xA Contusion of right foot, initial encounter Celso MaldonadoAAltagracia 03/23/2021 M17.12 Unilateral primary osteoarthriti s, left knee Supa Loving P.AAltagracia 03/23/2021 S80.01xA Contusion of right knee, initial encounter ELISEO Lynch 03/23/2021 M17.11 Unilateral primary osteoarthriti s, right knee Nuha Maldonado.AAltagracia 03/23/2021 M17.0 Bilateral primary osteoarthritis of knee Celso MaldonadoAAltagracia 03/23/2021 S90.32xA Contusion of left foot, initial encounter ELISEO Lynch 03/23/2021 S90.31xA Contusion of right foot, initial encounter ELISEO Lynch 03/23/2021 M17.12 Unilateral primary osteoarthriti s, left knee ELISEO Lynch 03/23/2021 M17.11 Unilateral primary osteoarthriti s, right knee ELISEO Lynch Plan of Treatment 03/23/2021 - Michael Maldonado* S80.02xA Contusion of left knee, initial encounter* Follow up:* PRN * S80.01xA Contusion of right knee, initial encounter * S90.32xA Contusion of left foot, initial encounter * S90.31xA Contusion of right foot, initial encounter * M17.12 Unilateral primary osteoarthritis, left knee * M17.11 Unilateral primary osteoarthritis, right knee * M17.0 Bilateral primary osteoarthritis of knee Functional Status Description No Information Available Mental Status Description No Information Available Referrals Description No Information Available
--- OUTSIDE RECORDS SUMMARY | 2021-05-09 04:30 | CCD | Continuity of Care Document ---
Author Author Zahra Adams M.D Organization Unknown Address [address] [facility] [address] [place] [address] Phone [phone] Care Team Providers Care Soda Fountain Manager Name Role Phone Sushila, Geni REO ASSET MANAGER AUTM [phone] [facility] Hematology/Oncology AUTM [phone] Blake Presley MD AUTM [phone] Problems Active Problems Provider Date History of [...] No Allergies, Adverse Reactions, Alerts Active Allergies Criticality [...] es 1 by mouth every day Cris Hickey,REO ASSET MANAGER 03/19/2020 Excedrin Migraine [phone] Tab lets 2 q 6hrs prn po [...] H/L Range Note CBC With Differential 01/24/[address] [address] [phone] White Blood Count 6.7 10 Normal 4.0-10.0 [...] 36.0-66.0 Lymph % 32.4 % Normal 24.0-44.0 [place] % 8.5 % High 2.0-8.0 Eos % 2.5 % Normal 0.0-3.0 Baso % 0.6 % Normal 0.0-1.0 Immature Granulocyte % 0.4 % Normal 0-3.0 Nucleated Red Blood Cell % 0.0 % Normal 0-0 Neutrophils # 3.7 10 Normal 1.5-8.5 Lymph # 2.2 10 Normal 1.5-5.0 [place] # 0.6 10 Normal 0.0-0.8 Eos # 0.2 10 Normal 0.0-0.5 Baso # 0.0 10 Normal 0.0-0.2 Comprehensive Metabolic Profil 01/24/[address] [address] [phone] Glucose, Fasting 109 mg/dL High 70-100 Blood [...] Ratio 1.0 Low 1.2-2.2 Ua Routine 01/18/2021 [facility] nter [address] [place] [address] [phone] Appearance, Urine CLEAR Normal Clear Color, Urine YELLOW Normal Yellow PH,Urine 5.0 units Normal 5.0-9.0 Specific [place] Urine Auto 1.015 Normal 1.002-1.035 Protein, Urine [...] /LPF Normal 0-1 Laboratory test finding 01/18/[address] [address] [phone] HCG Serum Qualitative NEGATIVE Normal Negative Anti-Smooth Muscle Antibody 5 units Normal 0-19 2 CBC With Differential 01/18/[address] [address] [phone] White Blood Count 6.7 10 Normal 4.0-10.0 [...] 36.0-66.0 Lymph % 29.9 % Normal 24.0-44.0 [place] % 8.7 % High 2.0-8.0 Eos % 2.0 % Normal 0.0-3.0 Baso % 0.9 % Normal 0.0-1.0 Immature Granulocyte % 1.1 % Normal 0-3.0 Nucleated Red Blood Cell % 0.0 % Normal 0-0 Neutrophils # 3.8 10 Normal 1.5-8.5 Lymph # 2.0 10 Normal 1.5-5.0 [place] # 0.6 10 Normal 0.0-0.8 Eos # 0.1 10 Normal 0.0-0.5 Baso # 0.1 10 Normal 0.0-0.2 Laboratory test finding 12/28/2020 [facility] Assistant Curator: [place] [address] [phone] Glucose 112 mg/dL High 74 - 99 3 Lipid Profile 12/28/2020 [facility] Assistant Curator: [place] [address] [phone] Cholesterol 203 mg/dL High 131 - 200 Triglycerides 390 mg/dL High 30 - 150 HDL Cholesterol 44 mg/dL 35 - 60 LDL (Calculated) 81 CALC 50 - 159 Basic Metabolic Panel 12/28/2020 [facility] Assistant Curator: [place] [address] [phone] Glucose 113 mg/dL High 74 - 99 [...] mL/min >60 5 Laboratory test finding 12/28/2020 [facility] Assistant Curator: [place] [address] [phone] Thyroid Stimulating Hormone 4.95 uIU/mL High 0.3 6 - 3.74 Laboratory test finding 12/28/2020 [facility] rodríguez Assistant Curator: [place] [address] [phone] Free 0.83 ng/dL 0.76 - 1.46 CBC With Differential 10/22/[address] [address] [phone] White Blood Count 8.8 10 Normal 4.0-10.0 [...] 36.0-66.0 Lymph % 23.4 % Low 24.0-44.0 [place] % 7.7 % Normal 2.0-8.0 Eos % 2.5 % Normal 0.0-3.0 Baso % 0.7 % Normal 0.0-1.0 Immature Granulocyte % 1.1 % Normal 0-3.0 Nucleated Red Blood Cell % 0.0 % Normal 0-0 Neutrophils # 5.7 10 Normal 1.5-8.5 Lymph # 2.1 10 Normal 1.5-5.0 [place] # 0.7 10 Normal 0.0-0.8 Eos # 0.2 10 Normal 0.0-0.5 Baso # 0.1 10 Normal 0.0-0.2 Comprehensive Metabolic Profil 10/22/2020 [place] [id number] [phone] Glucose, Fasting 121 mg/dL High 70-100 Blood [...] Little GFR Left ESRD GFR <15 on GRADES 7 AND 8 TEACHER 2 Negative 0 - 19 Weak positive 20 - 30 Moderate to strong positive >30 . Actin Antibodies are found in 52-85% of patients with autoimmune hepatitis or chronic active hepatitis and in 22% of patients with primary biliary cirrhosis. Performed at: RN - [facility] [address] [id number] Assistant Curator: Julia Garcia MD, Phone: [phone] 3 100-125 mg/dL PRE-DIABET ES/FASTING >126 mg/dL DIABETES/FASTING 4 100-125 mg/dL PRE-DIABET ES/FASTING >126 mg/dL DIABETES/FASTING 5 CHRONIC KIDNEY DISEASE STAGI NG PER NKF STAGE I & II GFR >= 60 NORMAL TO MILDLY DECREASED STAGE III GFR 30-59 MODERATELY DECREASED STAGE IV GFR 15-29 SEVERELY DECREASED STAGE V GFR <15 VERY LITTLE GFR LEFT ESRD GFR <15 ON GRADES 7 AND 8 TEACHER 6 Units are mL/min/1.73 m2 Chronic Kidney Disease Staging per NKF: Stage I & II GFR >=60 Normal to Mildly Decreased Stage III GFR 30-59 Moderately Decreased Stage IV GFR 15-29 Severely Decreased Stage V GFR <15 Very Little GFR Left ESRD GFR <15 on GRADES 7 AND 8 TEACHER Procedures Date Code Description Status 12/29/2020 [address] Office/Outpatient Established Mo d MDM 30-39 Min Completed 07/30/2020 [id number] Colonoscopy Completed 06/08/2020 [id number] Bone Mineral Density Test Comple [facility] 10/09/2019 [id number] Mammogram Completed 09/23/2019 [id number] Mammogram Completed 09/16/2019 [id number] Mammogram Completed 10/02/2017 [id number] Diabetic Retinal Eye Exam Comple [facility] Medical Devices Description No Information Available Encounters Type Date Location Provider Dx Diagnosis Office Visit 12/29/2020 2:30p [facility] Gagan Adams M.D. Z17.0 Estrogen [...] Insomnia, unspecified Assessments Date Code Description Provider 12/29/2020 Z17.0 Estrogen receptor positive statu s [...] 11:30 am - [facility] 12/29/2020 - Arlyn Adams M.D.* Z17.0 Estrogen receptor positive status [ER+] * C50.919 Malignant neoplasm of unspecified site of unspecified female breast * I47.1 Supraventricular tachycardia * I10 Essential (primary) hypertension * K57.92 Diverticulitis of intestine, part unspecified, without perforation or abscess without bleeding * N20.0 Calculus of kidney * R73.09 Other abnormal glucose * E78.00 Pure hypercholesterolemia, unspecified * G47.33 Obstructive sleep apnea (adult) (pediatric) * R20.2 Paresthesia of skin * G47.00 Insomnia, unspecified * All * New Medication:* Losartan Potassium 25 mg - 1/2 by mouth qhs * Comments:* 10. Insomnia. Good sleep habits [id number]. Hiatal hernia. Asymptomatic. Use Tums as needed.12. OA. Foot pain. Following with SOS13. Obesity. Diet, exercise advice given.Please call with any questions or concerns. Functional Status Description No Information Available Mental Status Description No Information Available Referrals Description No Information Available
--- OUTSIDE RECORDS SUMMARY | 2021-05-09 04:30 | CCD | Continuity of Care Document ---
Author Organization Unknown Address Unknown Phone Unavailable Care Team Providers Care Mva Reactor Operator Name Role Phone Geni Conti DIRECTOR OF GUIDANCE AUTM [phone] [facility] Hematology/Oncology AUTM [phone] Blake Presley MD AUTM [phone] Problems Active Problems Provider Date History of [...] SIG Qnty Indications Ordering Provide r Date Losartan Potassium 25mg Tablets 1/2 by mouth qhs 90tabs Arlyn Adams M.D. 12/30/19 21 Probiotic Capsules 1 by mouth every day Arlyn Adams M.D. 03/22/2020 Vitamin D3 125mcg (5000 Ut) Capsul es 1 by mouth every day Cris Hickey FNP 03/19/2020 Excedrin Migraine [phone] Tab lets 2 q 6hrs prn po [...] Unknown Anastrozole 1mg Tablets 1 layo Unknown Bisoprolol Fumarate 5mg Tablets 1/2 po qhs Unknown Immunizations Description No Information Available Vital Signs Date Vital Result Comment 12/29/2020 2:44pm BP Systolic 112 mmHg RT Arm BP Diastolic 70 mmHg RT Arm Heart Rate 80 /min Height 62.0 inches 5'2" Weight 189.00 lb BMI (Body Mass Index) 34.6 kg/m2 09/27/2020 9:04am BP Systolic 102 mmHg RT Arm BP Diastolic 70 mmHg RT Arm Heart Rate 60 /min Height 62.0 inches 5'2" Weight 180.50 lb BMI (Body Mass Index) 33.0 kg/m2 Results Test Acquired Date Facility Test Result H/L Range Note CBC With Differential 01/24/2021 [facility] [address] [place] [phone] White Blood Count 6.7 10 Normal 4.0-10.0 [...] 36.0-66.0 Lymph % 32.4 % Normal 24.0-44.0 [place] % 8.5 % High 2.0-8.0 Eos % 2.5 % Normal 0.0-3.0 Baso % 0.6 % Normal 0.0-1.0 Immature Granulocyte % 0.4 % Normal 0-3.0 Nucleated Red Blood Cell % 0.0 % Normal 0-0 Neutrophils # 3.7 10 Normal 1.5-8.5 Lymph # 2.2 10 Normal 1.5-5.0 [place] # 0.6 10 Normal 0.0-0.8 Eos # 0.2 10 Normal 0.0-0.5 Baso # 0.0 10 Normal 0.0-0.2 Comprehensive Metabolic Profil 01/24/2021 [facility] [address] [place], [place] [id number] [phone] Glucose, Fasting 109 mg/dL High 70-100 Blood [...] Ratio 1.0 Low 1.2-2.2 Ua Routine 01/18/2021 [facility] nter [address] [place], [place] [address] [phone] Appearance, Urine CLEAR Normal Clear Color, Urine YELLOW Normal Yellow PH,Urine 5.0 units Normal 5.0-9.0 Specific [place] Urine Auto 1.015 Normal 1.002-1.035 Protein, Urine [...] /LPF Normal 0-1 Laboratory test finding 01/18/[address] [address] [phone] HCG Serum Qualitative NEGATIVE Normal Negative Anti-Smooth Muscle Antibody 5 units Normal 0-19 2 CBC With Differential 01/18/[address] [address] [phone] White Blood Count 6.7 10 Normal 4.0-10.0 [...] 36.0-66.0 Lymph % 29.9 % Normal 24.0-44.0 [place] % 8.7 % High 2.0-8.0 Eos % 2.0 % Normal 0.0-3.0 Baso % 0.9 % Normal 0.0-1.0 Immature Granulocyte % 1.1 % Normal 0-3.0 Nucleated Red Blood Cell % 0.0 % Normal 0-0 Neutrophils # 3.8 10 Normal 1.5-8.5 Lymph # 2.0 10 Normal 1.5-5.0 [place] # 0.6 10 Normal 0.0-0.8 Eos # 0.1 10 Normal 0.0-0.5 Baso # 0.1 10 Normal 0.0-0.2 Laboratory test finding 12/28/2020 [place] [facility], Cardiology Technologist: Dr William Quiroga [place], [place] [id number] [phone] Glucose 112 mg/dL High 74 - 99 3 Lipid Profile 12/28/2020 [place] Cardiology Technologist: Dr William [place] [id number] [phone] Cholesterol 203 mg/dL High 131 - 200 Triglycerides 390 mg/dL High 30 - 150 HDL Cholesterol 44 mg/dL 35 - 60 LDL (Calculated) 81 CALC 50 - 159 Basic Metabolic Panel 12/28/2020 [place] [facility] Cardiology Technologist: Dr William Quiroga [place], [place] [address] [phone] Glucose 113 mg/dL High 74 - 99 [...] mL/min >60 5 Laboratory test finding 12/28/2020 [place] [facility] [facility], Cardiology Technologist: Dr Thomas [place] [id number] [phone] Thyroid Stimulating Hormone 4.95 uIU/mL High 0.3 6 - 3.74 Laboratory test finding 12/28/2020 [place] [facility] ingrid rodríguez Cardiology Technologist: [place] [address] [phone] Free 0.83 ng/dL 0.76 - 1.46 CBC With Differential 10/22/[address] [address] [phone] White Blood Count 8.8 10 Normal 4.0-10.0 [...] 36.0-66.0 Lymph % 23.4 % Low 24.0-44.0 [place] % 7.7 % Normal 2.0-8.0 Eos % 2.5 % Normal 0.0-3.0 Baso % 0.7 % Normal 0.0-1.0 Immature Granulocyte % 1.1 % Normal 0-3.0 Nucleated Red Blood Cell % 0.0 % Normal 0-0 Neutrophils # 5.7 10 Normal 1.5-8.5 Lymph # 2.1 10 Normal 1.5-5.0 [place] # 0.7 10 Normal 0.0-0.8 Eos # 0.2 10 Normal 0.0-0.5 Baso # 0.1 10 Normal 0.0-0.2 Comprehensive Metabolic Profil 10/22/[address] [address] [phone] Glucose, Fasting 121 mg/dL High 70-100 Blood [...] Normal 3.2-5.2 Albumin/Globulin Ratio 0.9 Low 1.2-2.2 Laboratory test finding 09/27/2020 [place] [facility], Cardiology Technologist: [place] [address] [phone] Glucose 114 mg/dL High 74 - 99 7 Lipid Profile 09/27/2020 [place] [facility] Cardiology Technologist: Dr [place] [address] [phone] Cholesterol 161 mg/dL 131 - 200 Triglycerides 92 mg/dL 30 - 150 HDL Cholesterol 72 mg/dL High 35 - 60 LDL (Calculated) 71 CALC 50 - 159 Laboratory test finding 09/27/2020 [place] [employer] [facility], Cardiology Technologist: Dr [place] [address] [phone] Thyroid Stimulating Hormone 1.87 uIU/mL 0.3 6 - 3.74 1 Units are mL/min/1.73 m2 Chronic Kidney Disease Staging per NKF: Stage I & II GFR >=60 Normal to Mildly Decreased Stage III GFR 30-59 Moderately Decreased Stage IV GFR 15-29 Severely Decreased Stage V GFR <15 Very Little GFR Left ESRD GFR <15 on HYDRATE CONTROL TENDER 2 Negative 0 - 19 Weak positive 20 - 30 Moderate to strong positive >30 . Actin Antibodies are found in 52-85% of patients with autoimmune hepatitis or chronic active hepatitis and in 22% of patients with primary biliary cirrhosis. Performed at: RN - [facility] [address] [id number] Cardiology Technologist: Julia Garcia MD, Phone: [phone] 3 100-125 mg/dL PRE-DIABET ES/FASTING >126 mg/dL DIABETES/FASTING 4 100-125 mg/dL PRE-DIABET ES/FASTING >126 mg/dL DIABETES/FASTING 5 CHRONIC KIDNEY DISEASE STAGI NG PER NKF STAGE I & II GFR >= 60 NORMAL TO MILDLY DECREASED STAGE III GFR 30-59 MODERATELY DECREASED STAGE IV GFR 15-29 SEVERELY DECREASED STAGE V GFR <15 VERY LITTLE GFR LEFT ESRD GFR <15 ON HYDRATE CONTROL TENDER 6 Units are mL/min/1.73 m2 Chronic Kidney Disease Staging per NKF: Stage I & II GFR >=60 Normal to Mildly Decreased Stage III GFR 30-59 Moderately Decreased Stage IV GFR 15-29 Severely Decreased Stage V GFR <15 Very Little GFR Left ESRD GFR <15 on HYDRATE CONTROL TENDER 7 100-125 mg/dL PRE-DIABET ES/FASTING >126 mg/dL DIABETES/FASTING Procedures Date Code Description Status 12/29/2020 [address]3239 Office/Outpatient Established Mo d MDM 30-39 Min Completed 09/27/2020 92922 Est Prevent Med (40-64Yrs) Compl eted 07/30/2020 [id number] Colonoscopy Completed 06/08/2020 [id number] Bone Mineral Density Test Comple [facility] 10/09/2019 [id number] Mammogram Completed 09/23/2019 [id number] Mammogram Completed 09/16/2019 [id number] Mammogram Completed 10/02/2017 [id number] Diabetic Retinal Eye Exam Comple [facility] Medical Devices Description No Information Available Encounters Type Date Location Provider Dx Diagnosis Office Visit 12/29/2020 2:30p [facility] [place] [facility] Z17.0 Estrogen receptor positive [...] R20.2 Paresthesia of skin G47.00 Insomnia, unspecified Office Visit 09/27/2020 9:00a [facility] Gagan Adams M.D. Z00.00 Encntr for general adult med ical exam w/o abnormal findings C50.919 Malignant neoplasm of unsp s ite of unspecified female breast I47.1 Supraventricular tachycardia I10 Essential (primary) hyperten kyler K57.92 Dvtrcli of intest, part unsp , w/o perf or abscess w/o bleed N20.0 Calculus of kidney R73.09 Other abnormal glucose E78.00 Pure hypercholesterolemia, u nspecified G47.33 Obstructive sleep apnea (surjit lt) (pediatric) K44.9 Diaphragmatic hernia without obstruction or gangrene Assessments Date Code Description Provider 12/29/2020 Z17.0 [...] Arlyn lamb M.D. 12/29/2020 G47.00 Insomnia, unspecified Codey FaganD. 12/28/2020 R73.09 Other abnormal glucose Arlyn Adams M.D. 12/28/2020 R73.09 Other abnormal glucose Lab Sched ule 12/28/2020 E78.00 Pure hypercholesterolemia, unspe cified Arlyn Adams M.D. 12/28/2020 E78.00 Pure hypercholesterolemia, unspe cified Lab Schedule 12/28/2020 E07.9 Disorder of thyroid, unspecified Arlyn Adams M.D. 12/28/2020 E07.9 Disorder of thyroid, unspecified Lab Schedule 09/27/2020 Z00.00 Encounter for genera l adult medical examination without abnormal findings Arlyn Adams M.D. 09/27/2020 C50.919 Malignant neoplasm o f unspecified site of unspecified female breast Arlyn Adams M.D. 09/27/2020 I47.1 Supraventricular tachycardia Gagan Adams M.D. 09/27/2020 I10 Essential (primary) hypertension Arlyn Adams M.D. 09/27/2020 K57.92 Diverticulitis of in testine, part unspecified, without perforation or abscess without bleeding Arlyn Adams M.D. 09/27/2020 N20.0 Calculus of kidney Arlyn smith M.D. 09/27/2020 R73.09 Other abnormal glucose Arlyn Adams M.D. 09/27/2020 E78.00 Pure hypercholesterolemia, unspe ciken Admas M.D. 09/27/2020 G47.33 Obstructive sleep apnea (adult) (pediatric) Arlyn Adams M.D. 09/27/2020 K44.9 Diaphragmatic hernia without obs truction or gangrene Arlyn Adams M.D. Plan of Treatment Future Appointment(s):* 04/06/2021 3:00 pm - Arlyn [facility] at [place] [facility] 12/29/2020 - Arlyn Adams [...] * Comments:* 10. Insomnia. Good sleep habits . Hiatal hernia. Asymptomatic. Use Tums as needed.12. OA. Foot pain. Following with SOS13. Obesity. Diet, exercise advice given.Please call with any questions or concerns. Functional Status Description No Information Available Mental Status Description No Information Available Referrals Description No Information Available
--- OUTSIDE RECORDS SUMMARY | 2021-05-09 04:30 | CCD | Continuity of Care Document ---
Author Author Zahra CRAIG MD Organization Unknown Address [address] [place] [address] Phone [phone] Care Team Providers Care Insulation Helper Name Role Phone Arlyn Adams MD AUT [phone] Problems Description No Information Available Social History [...] 1000mg Capsules Harriett y Unknown Excedrin Migraine [phone] Tab lets prn Unknown Vitamin D3 125mcg [...] m2 Results Description No Information Available Procedures Description No Information Available Medical Devices Description No Information Available Encounters Description No Information Available Assessments Description No Information Available Plan of Treatment No Information Available Functional Status Description No Information Available Mental Status Description No Information Available Referrals Description No Information Available
--- OUTSIDE RECORDS SUMMARY | 2021-05-09 04:31 | CCD ---
Author Author [facility] Organization [facility] Address Unknown Phone Unavailable Care Team Providers Care Telecom Engineer Name Role Phone AMERICO THRASHER MD Unavailable Unavailable AMERICO THRASHER [...] Unavailable Unavailable AMERICO THRASHER MD Unavailable Unavailable CRAIG, L GARRICK CASTELAN Unavailable Unavailable CRAIG, L GARRICK CASTELAN Unavailable Unavailable CRAIG, L GARRICK CASTELAN Unavailable Unavailable CRAIG, L GARRICK CASTELAN Unavailable Unavailable CRAIG, L GARRICK CASTELAN Unavailable Unavailable CRAIG, L GARRICK CASTELAN Unavailable Unavailable CRAIG, L GARRICK CASTELAN Unavailable Unavailable CRAIG, L GARRICK CASTELAN Unavailable Unavailable CRAIG, L GARRICK CASTELAN Unavailable Unavailable CRAIG, L GARRICK CASTELAN Unavailable Unavailable CRAIG, L GARRICK CASTELAN Unavailable Unavailable CRAIG, L GARRICK CASTELAN Unavailable Unavailable CRAIG, L GARRICK CASTELAN Unavailable Unavailable CRAIG, L GARRICK CASTELAN Unavailable Unavailable CRAIG, L GARRICK CASTELAN Unavailable Unavailable CRAIG, L GARRICK CASTELAN Unavailable Unavailable CRAIG, L GARRICK CASTELAN Unavailable Unavailable CRAIG, L GARRICK CASTELAN Unavailable Unavailable CRAIG, L GARRICK CASTELAN Unavailable Unavailable CRAIG, L GARRICK CASTELAN Unavailable Unavailable CRAIG, L GARRICK CASTELAN Unavailable Unavailable CRAIG, L GARRICK CASTELAN Unavailable Unavailable CRAIG, L GARRICK CASTELAN Unavailable Unavailable CRAIG, L GARRICK CASTELAN Unavailable Unavailable CRAIG, L GARRICK CASTELAN Unavailable Unavailable CRAIG, L GARRICK CASTELAN Unavailable Unavailable CRAIG, L GARRICK CASTELAN Unavailable Unavailable CRAIG, L GARRICK CASTELAN Unavailable Unavailable CRAIG, L GARRICK CASTELAN Unavailable Unavailable CRAIG, L GARRICK CASTELAN Unavailable Unavailable CRAIG, L GARRICK CASTELAN Unavailable Unavailable CRAIG, L GARRICK CASTELAN Unavailable Unavailable CRAIG, L GARRICK CASTELAN Unavailable Unavailable CRAIG, L GARRICK CASTELAN Unavailable Unavailable CRAIG, L GARRICK CASTELAN Unavailable Unavailable CRAIG, L GARRICK CASTELAN Unavailable Unavailable CRAIG, L GARRICK CASTELAN Unavailable Unavailable CRAIG, L GARRICK MD Unavailable Unavailable Oscar CRAIG MD Unavailable Unavailable Oscar CRAIG MD Unavailable Unavailable Oscar CRAIG MD Unavailable Unavailable Oscar CRAIG MD Unavailable Unavailable Oscar CRAIG MD Unavailable Unavailable Oscar CRAIG MD Unavailable Unavailable Oscar CRAIG MD Unavailable Unavailable MCELHERAN, LORENE PA Unavailable Unavailable MCELHERAN, LORENE PA Unavailable Unavailable MCELHERAN, LORENE PA Unavailable Unavailable MCELHERAN, LORENE PA Unavailable Unavailable MCELHERAN, LORENE PA Unavailable Unavailable MCELHERAN, LORENE PA Unavailable Unavailable MCELHERAN, LORENE PA Unavailable Unavailable MCELHERAN, LORENE PA Unavailable Unavailable MCELHERAN, LORENE PA Unavailable Unavailable MCELHERAN, LORENE PA Unavailable Unavailable MCELHERAN, LORENE PA Unavailable Unavailable MCELHERAN, LORENE PA Unavailable Unavailable MCELHERAN, LORENE PA Unavailable Unavailable MCELHERAN, LORENE PA Unavailable Unavailable MCELHERAN, LORENE PA Unavailable Unavailable MCELHERAN, LORENE PA Unavailable Unavailable MCELHERAN, LORENE PA Unavailable Unavailable MCELHERAN, LORENE PA Unavailable Unavailable MCELHERAN, LORENE PA Unavailable Unavailable MCELHERAN, LORENE PA Unavailable Unavailable MCELHERAN, LORENE PA Unavailable Unavailable MCELHERAN, LORENE PA Unavailable Unavailable MCELHERAN, LORENE PA Unavailable Unavailable MCELHERAN, LORENE PA Unavailable Unavailable MCELHERAN, LORENE PA Unavailable Unavailable MCELHERAN, LORENE PA Unavailable Unavailable MCELHERAN, LORENE PA Unavailable Unavailable MCELHERAN, LORENE PA Unavailable Unavailable MCELHERAN, LORENE PA Unavailable Unavailable Blackwell, C Renita SOFTWARE SALES CONSULTANT Unavailable Unavailable Blackwell, C Renita SOFTWARE SALES CONSULTANT Unavailable Unavailable Blackwell, C Renita SOFTWARE SALES CONSULTANT Unavailable Unavailable Blackwell, C Renita SOFTWARE SALES CONSULTANT Unavailable Unavailable Blackwell, C Renita SOFTWARE SALES CONSULTANT Unavailable Unavailable Blackwell, C Renita SOFTWARE SALES CONSULTANT Unavailable Unavailable Blackwell, C Renita SOFTWARE SALES CONSULTANT Unavailable Unavailable Blacwkell, C Renita SOFTWARE SALES CONSULTANT Unavailable Unavailable Blackwell, C Renita SOFTWARE SALES CONSULTANT Unavailable Unavailable Blackwell, C Renita SOFTWARE SALES CONSULTANT Unavailable Unavailable Blackwell, C Renita SOFTWARE SALES CONSULTANT Unavailable Unavailable Blackwell, C Renita SOFTWARE SALES CONSULTANT Unavailable Unavailable Blackwell, C Renita SOFTWARE SALES CONSULTANT Unavailable Unavailable Blackwell, C Renita SOFTWARE SALES CONSULTANT Unavailable Unavailable Blackwell, C Renita SOFTWARE SALES CONSULTANT Unavailable Unavailable Blackwell, C Renita SOFTWARE SALES CONSULTANT Unavailable Unavailable Blackwell, C Renita SOFTWARE SALES CONSULTANT Unavailable Unavailable Blackwell, C Renita SOFTWARE SALES CONSULTANT Unavailable Unavailable Blackwell, C Renita SOFTWARE SALES CONSULTANT Unavailable Unavailable Blackwell, C Renita SOFTWARE SALES CONSULTANT Unavailable Unavailable Blackwell, C Renita SOFTWARE SALES CONSULTANT Unavailable Unavailable Blackwell, C Renita SOFTWARE SALES CONSULTANT Unavailable Unavailable Blackwell, C Renita SOFTWARE SALES CONSULTANT Unavailable Unavailable Blackwell, C Renita SOFTWARE SALES CONSULTANT Unavailable Unavailable Blackwell, C Renita SOFTWARE SALES CONSULTANT Unavailable Unavailable Blackwell, C Renita SOFTWARE SALES CONSULTANT Unavailable Unavailable Blackwell, C Renita SOFTWARE SALES CONSULTANT Unavailable Unavailable Blackwell, C Renita SOFTWARE SALES CONSULTANT Unavailable Unavailable Blackwell, C Renita SOFTWARE SALES CONSULTANT Unavailable Unavailable Blackwell, C Renita SOFTWARE SALES CONSULTANT Unavailable Unavailable FANNY, R PARVIZ Unavailable Unavailable Nicolasa Adams MD Unavailable Unavailable [...] Unavailable Unavailable Nicolasa Adams MD Unavailable Unavailable AngieNicolasa MD Unavailable Unavailable AngieNicolasa lamb MD Unavailable Unavailable AngieNicolasa lamb MD Unavailable Unavailable AngieNicolasa lamb MD Unavailable Unavailable AngieNicolasa MD Unavailable Unavailable AngieNicolasa MD Unavailable Unavailable AngieNicolasa MD Unavailable Unavailable Nicolasa Adams MD Unavailable Unavailable AngieNicolasa lamb MD Unavailable Unavailable Nicolasa Adams MD Unavailable Unavailable AngieNicolasa MD Unavailable Unavailable AngieNicolasa MD Unavailable Unavailable AngieNicolasa MD Unavailable Unavailable Nicolasa Adams MD Unavailable Unavailable AngieNicolasa MD Unavailable Unavailable AngieNicolasa MD Unavailable Unavailable AngieNicolasa MD Unavailable Unavailable AngieNicolasa jameson MD Unavailable Unavailable AngieNicolasa MD Unavailable Unavailable Nicolasa Adams MD Unavailable [...] Unavailable Nicolasa Adams MD Unavailable Unavailable Nicolasa Aadms MD Unavailable Unavailable Nicolasa Adams MD Unavailable Unavailable Nicolasa Adams MD Unavailable Unavailable Nicolasa Adams MD Unavailable Unavailable Nicolasa Adams MD Unavailable Unavailable Nicolasa Adams MD Unavailable Unavailable Nicolasa Adams MD Unavailable Unavailable Nicolasa Adams MD Unavailable Unavailable Nicolasa Adams MD Unavailable Unavailable Nicolasa Adams MD Unavailable Unavailable Nicolasa Adams MD Unavailable Unavailable Nicolasa Adams MD Unavailable Unavailable Nicolasa Adams MD Unavailable Unavailable Hope Ramos MD Unavailable Unavailable Quetell, Hope MD Unavailable Unavailable Quetell, Hope MD Unavailable Unavailable Quetell, Hope MD Unavailable Unavailable Quetell, Hope MD Unavailable Unavailable Quetell, Hope MD Unavailable Unavailable Quetell, Hope MD Unavailable Unavailable Quetell, Hope MD Unavailable Unavailable Quetell, Hope MD Unavailable Unavailable Quetell, Hope MD Unavailable Unavailable Quetell, Hope MD Unavailable Unavailable Quetell, Hope MD Unavailable Unavailable Quetell, Hope MD Unavailable Unavailable Quetell, Hope MD Unavailable Unavailable Quetell, Hope MD Unavailable Unavailable Quetell, Hope MD Unavailable Unavailable Quetell, Hope MD Unavailable Unavailable Quetell, Hope MD Unavailable Unavailable Quetell, Hope MD Unavailable Unavailable Quetell, Hope MD Unavailable Unavailable Quetell, Hope MD Unavailable Unavailable Quetell, Hope MD Unavailable Unavailable Quetell, Hope MD Unavailable Unavailable Quetell, Hope MD Unavailable Unavailable Quetell, Hope MD Unavailable Unavailable Quetell, Hope MD Unavailable Unavailable Quetell, Hope MD Unavailable Unavailable Quetell, Hope MD Unavailable Unavailable Quetell, Hope MD Unavailable Unavailable Quetell, Hope MD Unavailable Unavailable Quetell, Hope MD Unavailable Unavailable Quetell, Hope MD Unavailable Unavailable Quetell, Hope MD Unavailable Unavailable Quetell, Hope MD Unavailable Unavailable Quetell, Hope MD Unavailable Unavailable Quetell, Hope MD Unavailable Unavailable Quetell, Hope MD Unavailable Unavailable Quetell, Hope MD Unavailable Unavailable Quetell, Hope MD Unavailable Unavailable Quetell, Hope MD Unavailable Unavailable Quetell, Hope MD Unavailable Unavailable Quetell, Hope MD Unavailable Unavailable Quetell, Hope MD Unavailable Unavailable Quetell, Hope MD Unavailable Unavailable Quetell, Hope MD Unavailable Unavailable Quetell, Hope MD Unavailable Unavailable Quetell, Hope MD Unavailable Unavailable Quetell, Hope MD Unavailable Unavailable Quetell, Hope MD Unavailable Unavailable Quetell, Hope MD Unavailable Unavailable Quetell, Hope MD Unavailable Unavailable Quetell, Hope MD Unavailable Unavailable Quetell, Hope MD Unavailable Unavailable Hope Ramos MD Unavailable Unavailable Hope Ramos MD Unavailable Unavailable Hope Ramos MD Unavailable Unavailable Hope Ramos MD Unavailable Unavailable Hope Ramos MD Unavailable Unavailable Hope Ramos MD Unavailable Unavailable Bernice RAYA MD Unavailable Unavailable Bernice RAYA MD Unavailable Unavailable Bernice RAYA MD Unavailable Unavailable Bernice RAYA MD Unavailable Unavailable Bernice RAYA MD Unavailable Unavailable Bernice RAYA MD Unavailable Unavailable Bernice RAYA MD Unavailable Unavailable Bernice RAYA MD Unavailable Unavailable Bernice RAYA MD Unavailable Unavailable Bernice RAYA MD Unavailable Unavailable Bernice RAYA MD Unavailable Unavailable Bernice RAYA MD Unavailable Unavailable Bernice RAYA MD Unavailable Unavailable Bernice RAYA MD Unavailable Unavailable Bernice RAYA MD Unavailable Unavailable Bernice RAYA MD Unavailable Unavailable Bernice RAYA MD Unavailable Unavailable Bernice RAYA MD Unavailable Unavailable Bernice RAYA MD Unavailable Unavailable Bernice RAYA MD Unavailable Unavailable Bernice RAYA MD Unavailable Unavailable Bernice RAYA MD Unavailable Unavailable Bernice RAYA MD Unavailable Unavailable Bernice RAYA MD Unavailable Unavailable Bernice RAYA MD Unavailable Unavailable Bernice RAYA MD Unavailable Unavailable Bernice RAYA MD Unavailable Unavailable Bernice RAYA MD Unavailable Unavailable Bernice RAYA MD Unavailable Unavailable Bernice RAYA MD Unavailable Unavailable Bernice RAYA MD Unavailable Unavailable Bernice RAYA MD Unavailable Unavailable Bernice RAYA MD Unavailable Unavailable Nicolasa Adams MD Unavailable Unavailable Nicolasa Adams MD Unavailable Unavailable Nicolasa Adams MD Unavailable Unavailable Nicolasa Adams MD Unavailable Unavailable Nicolasa Adams MD Unavailable Unavailable Nicolasa Adams MD Unavailable Unavailable Nicolasa Adams MD Unavailable Unavailable AngieNicolasa lamb MD Unavailable Unavailable AngieNicolasa jameson MD Unavailable Unavailable AngieNicolasa jameson MD Unavailable Unavailable AngieNicolasa MD Unavailable Unavailable AngieNicolasa MD Unavailable Unavailable AngieNicolasa MD Unavailable Unavailable AngieNicolasa MD Unavailable Unavailable AngieNicolasa lamb MD Unavailable Unavailable AngieNicolasa MD Unavailable Unavailable AngieNicolasa MD Unavailable Unavailable AngieNicolasa MD Unavailable Unavailable AngieNicolasa MD Unavailable Unavailable AngieNicolasa MD Unavailable Unavailable AngieNicolasa MD Unavailable Unavailable AngieNicolasa MD Unavailable Unavailable AngieNicolasa MD Unavailable Unavailable AngieNicolasa MD Unavailable Unavailable AngieNicolasa MD Unavailable Unavailable AngieNicolasa jameson MD Unavailable Unavailable Nicolasa Adams MD Unavailable Unavailable AngieNicolasa lamb MD Unavailable Unavailable Nicolasa Adams MD Unavailable Unavailable Nicolasa Adams MD Unavailable Unavailable Nicolasa Adams MD Unavailable Unavailable AngieNicolasa lamb MD Unavailable Unavailable Nicolasa Adams MD Unavailable [...] Unavailable Unavailable Nicolasa Adams MD Unavailable Unavailable AngieNicolasa jameson MD Unavailable Unavailable Nicolasa Adams MD Unavailable Unavailable AngieNicolasa MD Unavailable Unavailable Angie, Nicolasa Stoddard MD Unavailable Unavailable Angie, M Arlyn CASTELAN Unavailable Unavailable Angie, Nicolasa Stoddard MD Unavailable Unavailable Angie, M Arlyn CSATELAN Unavailable Unavailable Angie, Nicolasa Stoddard MD Unavailable Unavailable Angie, M Arlyn CASTELAN Unavailable Unavailable Angie, M Arlyn CASTELAN Unavailable Unavailable Angie, M Arlyn CASTELAN Unavailable Unavailable Angie, M Arlyn CASTELAN Unavailable Unavailable Angie, M Arlyn CASTELAN Unavailable Unavailable Angie, M Arlyn CASTELAN Unavailable Unavailable Angie, M Arlyn CASTELAN Unavailable Unavailable Angie, M Arlyn CASTELAN Unavailable Unavailable Angie, M Arlyn CASTELAN Unavailable Unavailable Angie, M Arlyn CASTELAN Unavailable Unavailable Angie, M Arlyn CASTELAN Unavailable Unavailable Angie, M Arlyn CASTELAN Unavailable Unavailable Angie, M Arlyn CASTELAN Unavailable Unavailable Angie, M Arlyn CASTELAN Unavailable Unavailable Angie, M Arlyn CASTELAN Unavailable Unavailable Angie, M Arlyn CASTELAN Unavailable Unavailable Angie, M Arlyn CASTELAN Unavailable Unavailable Angie, M Arlyn CASTELAN Unavailable Unavailable Angie, M Arlyn CASTELAN Unavailable Unavailable Angie, M Arlyn CASTELAN Unavailable Unavailable Angie, M Arlyn CASTELAN Unavailable Unavailable Re-disclosure Warning The records that [...] is protected by Article 27-F of the [facility] Public Health law. If you continue you may have access to information: Regarding HIV / AIDS; Provided by facilities licensed or operated by the [facility] Office of Mental Health; or Provided by the [facility] Office for People With Developmental Disabilities. If such information is present, then the following [facility] mandated warning applies: This information has been [...] law may result in a fine or care home sentence or both. A general authorization for the release of medical or other information is NOT sufficient authorization for further disc losure. Allergies and Adverse Reactions Type Description Substance Reaction Status Data Source(s ) Drug Allergy NKDA NKDA [facility] ([facility]) Family History Family Member Name Family Member Gender Family Member Status Date o f Status Description Data Source(s) Unknown Male Problem [facility] ([facility]) () Encounters Encounter Providers Location Date Indications Data Source(s ) [facility]00 PM EDT [facility] ([facility] ) Outpatient Attender: AMERICO THRASHER MDReferrer: Arlyn jameson MD 04/04/2021 10:36:04 AM EDT [facility] Recurring Patient Attender: AMERICO THRASHER MDReferrer: Arlyn maldonado MD 04/04/2021 10:00:41 AM EDT [facility] Outpatient Attender: GARRICK [facility] patient flow coordinator 11:00:00 AM EDT [facility] ([facility]PRENT[facility]) Outpatient Attender: LORENE GOMES Physical Therapy 03/23/2021 11:00:00 AM EDT [facility] ([facility]) Outpatient Attender: Hope Ramos MDAdmitter: Hope Ramos MD [id number] 01/27/2021 12:00:00 AM EDT - 01/27/2021 12:00:00 AM ED T S/P bilateral mastectomy [Z90.13] [facility] S/P bilateral mastectomy [Z90.13] Patient discharged. Outpatient Attender: Renita Blackwell SOFTWARE SALES CONSULTANT Attender: PARVIZ Horton: Hope Ramos MD [id number] 01/24/2021 12:00:00 AM EDT - 01/25/2021 12:00:00 AM EDT Contact with and (suspected) exposure to other viral communicable diseases [facility] Contact with and (suspected) exposure to other viral communicable diseases Outpatient Attender: Arlyn Hedrick 02:30:00 PM EDT [facility] ([facility] ) Outpatient [address] [facility] [id number] 12/10/2020 12:00:00 AM EDT eCW1 ([facility]) Outpatient Attender: Arlyn Hedrick 09:00:00 AM EDT [facility] ([facility] ) Outpatient Attender: VLADIMIR Richardson/Venancio/Ang el/Reindl 09/22/2020 09:10:00 AM EDT [facility] ([facility] ) Outpatient [address] [facility] [id number] 09/16/2020 12:00:00 AM EST eCW1 ([facility]) Outpatient Attender: GARRICK [facility] patient flow coordinator 09/2020 01:00:00 PM EST [facility] ([facility]PRENTICE) Outpatient Attender: Hope Ramos MDAdmitter: Hope Ramos MD [id number] 08/05/2020 12:00:00 AM EST - 08/05/2020 06:09:00 PM ES T Status post bilateral mastectomy [Z90.13] [facility] Status post bilateral mastectomy [Z90.13 ] Patient discharged. Outpatient Attender: Arlyn Hedrick 09:00:00 AM EST [facility] ([facility] ) Outpatient Attender: VLADIMIR Richardson/Venancio/Ang el/Reindl 07/05/2020 08:20:00 AM EST [facility] ([facility] Unknown [address] [facility] [place] [id number] 06/30/2020 12:00:00 AM EST eCW1 ([facility]) [place] [address] [facility] [address] 06/28/2020 12:00:00 AM EST eCW1 ([facility]) [place] [address] [facility] [address] 06/25/2020 12:00:00 AM EST eCW1 ([facility]) Outpatient Attender: Arlyn Hedrick 09:00:00 AM EST [facility] ([facility] ) Outpatient Attender: Arlyn Hedrick 10:00:00 AM EDT [facility] ([facility] ) [place] [address] [facility] [address] 03/11/2020 12:00:00 AM EDT eCW1 ([facility]) Immunizations Vaccine Date Status Description Data Source(s) COVID-19 VACCINE Moderna 11/01/2020 12:00:00 AM EDT completed [facility] Vaccine Series Complete: YESThis Data wa s Submitted to [facility] Via [employer]. COVID-19 VACCINE Moderna 10/04/2020 12:00:00 AM EDT completed [facility] Vaccine Series Complete: NOThis Data was Submitted to [facility] Via [employer]. Medications Medication Brand Name Start Date Product Form Dose Route Admi nistrative Instructions Pharmacy Instructions Status Indications Reaction Description Data Source(s) Naproxen 250 MG Oral Tablet Naproxen 04/06/2021 12:00:00 AM EDT ORAL active MED[facility] ([facility]) tramadol hydrochloride 50 MG Oral Tablet tramadol (ULT VIRGILIO) tablet 50 mg tramadol (ULTRAM) tablet 50 mg 01/27/2021 04:15:00 PM EDT 50 mg Oral completed 50 mg, Oral, Once, On Bharti 01/27/21 at 1615, For [address] [facility] Medication administered onsite fentaNYL (SUBLIMAZE) (PF) injection 25 mcg [id number] 01/27/2021 02:29:15 PM EDT 25 ug Intravenous active 25 m cg, Intravenous, Every 5 min PRN, Moderate Pain (Pain Scale Score 4-6), Starting on Bharti 01/27/21 at 1429, For 10 doses, [facility] Medication administered onsite HYDROmorphone (DILAUDID) injection 0.5 mg [id number] 01/27/2021 02:29:15 PM EDT 0.5 mg Intravenous active 0.5 mg, Intravenous, Every 5 min PRN, Severe Pain (Pain Scale Score 7-10), Starting on Bharti 01/27/21 at 1429, For 4 doses, [facility] Medication administered onsite ondansetron (ZOFRAN) injection 4 mg [id number] 01/27/2021 02:29:1 5 PM EDT 4 mg Intravenous completed 4 mg, In travenous, Once PRN, Nausea, Vomiting, Starting on Bharti 01/27/21 at 1429, For 1 dose, [facility] Medication administered onsite Calcium Chloride 0.0014 MEQ/ML / Potassi um Chloride 0.004 MEQ/ML / Sodium Chloride 0.103 MEQ/ML / Sodium Lactate 0.028 MEQ/ML Injectable Solution lactated ringers infusion lactated ringers infusion 01/27/2021 06:45:00 AM EDT 100 mL/h Intravenous active at 100 m L/hr, Intravenous, Continuous, Starting on Bharti 01/27/21 at 0645, For 30 days, Pre-op [facility] Medication administered onsite vancomycin (VANCOCIN) in D5W infusion 1,000 mg/200 mL (premi x) [id number] 01/27/2021 06:45:00 AM EDT 1000 mg Intravenous completed 1,000 mg, Intravenous, Administer over 60 Minutes, Once, On Bharti 01/27/21 at 0645, For 1 dose
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
Pre-op [facility] Medication administered onsite Losartan Potassium 25 MG Oral Tablet Losartan Potassium 12:00:00 AM EDT ORAL active [facility] ([facility]) Losartan Potassium 25 MG Oral Tablet [place] Potassium 25 MG Oral Tablet (COZAAR) Losartan Potassium 25 MG Oral Tablet (COZAAR) 12/21/19 12:00:00 AM EDT 12.5 mg active [address] [facility] anastrozole 1 MG Oral Tablet Anastrozole 1 MG Oral Tab let (ARIMIDEX) Anastrozole 1 MG Oral Tablet (ARIMIDEX) 07/26/2020 12:00:[address] [facility] magnesium citrate 58.2 MG/ML Oral Solution Magnesium Citrate 07/05/2020 12:00:00 AM EST completed MED[facility] ([facility], ) POLYETHYLENE GLYCOL 3350 105 MG/ML / Pot assium Chloride 0.38061 MEQ/ML / Sodium Bicarbonate 0.017 MEQ/ML / Sodium Chloride 0.0479 MEQ/ML Oral Solution [GaviLyte-N] Gavilyte-N With Flavor Pack 07/05/2020 12:00:00 AM EST completed [facility] ([facility], ) POLYETHYLENE GLYCOL 3350 142 MG/ML Oral Solution [Miralax] M iralax 07/05/2020 12:00:00 AM EST active M EDENT ([facility], ) Metamucil 0.36 GM Oral Capsule (Psyllium) [id number] 06/08/2020 12:00:00 AM EST active [facility] Metamucil 06/01/2020 12:00:00 AM EST complete d [facility] ([facility]) Cefuroxime 500 MG Oral Tablet Cefuroxime Axetil 05/29/2020 12:00:00 A M EST ORAL completed [facility] Metronidazole 500 MG Oral Tablet Metronidazole 03/29/2020 12:00:00 AM EDT ORAL completed [facility] Probiotic Probiotic 03/22/2020 12:00:00 AM EDT ORAL act victoria [facility] ([facility]) Acetaminophen 250 MG / Aspirin 250 MG / Caffeine 65 MG Oral Tablet [Excedrin] Excedrin Migraine 03/19/2020 12:00:00 AM EDT activ e [facility] ([facility]) Acetaminophen 500 MG Oral Tablet Acetaminophen 03/19/2020 12:00:00 AM EDT ORAL active [facility] Ondansetron 8 MG Oral Tablet Ondansetron HCL 03/19/2020 12:00:00 AM E DT ORAL completed [facility] ([facility]) Cholecalciferol 5000 UNT Oral Capsule Vitamin D3 03/19/2020 12:00:00 AM EDT ORAL active [facility] ([facility]) Amoxicillin 875 MG / Clavulanate 125 MG Oral Tablet Am oxicillin/Clavulanate Potassium 03/19/2020 12:00:00 AM EDT ORAL completed [facility] ([facility]) Insurance Providers Payer name Policy type / Coverage type Policy ID Covered libertarian ID Covered libertarian's relationship to mittal Policy Mittal Plan Information [place] FHP-(DO Not Use) Medigap Part B [id number] Self [id number] [place] FHP-(DO Not Use) Medigap Part B [id number] Self [id number] [place] FHP-(DO Not Use) Medigap Part B [id number] Self [id number] Ghi FHP-(DO Not Use) Medigap Part B [id number] Self [id number] Ghi FHP-(DO Not Use) Medigap Part B [id number] Self [id number] Ghi FHP-(DO Not Use) Medigap Part B [id number] Self [id number] Ghi FHP-(DO Not Use) Medigap Part B [id number] Self [id number] Ghi FHP-(DO Not Use) Medigap Part B [id number] Self [id number] BRENDAN [id number] SP [id number] EXCELLUS H [id number] Self [id number] MEDICAID M [id number] Self [id number] [facility] Trad/MX Commercial [id number] Self [id number] Blue Cross Blue Shield P [id number] SELF [id number] [facility] Trad/MX Medigap Part B [id number] Self [id number] EXCELLUS H [id number] Self [id number] [place] P[place] 302/307 [id number] SP [id number] Blue Cross Blue Shield P [id number] SELF [id number] Blue Cross Blue Shield P [id number] SELF [id number] Blue Cross Blue Shield P [id number] SELF [id number] MEDICAID [id number] SP [id number] BLUE CROSS BLUE SHIELD -O/P [id number] 18 [id number] MEDICAID M [id number] S [id number] MEDICAID-O/P [id number] 18 [id number] C BLUE CROSS BLUE SHIELD -O/P [id number] 18 [id number] MEDICAID -PHYSICIAN [id number] BLUE CROSS BLUE SHIELD -PHYSICIAN [id number] 18 [id number] MEDICAID - O/P EMERGENCY ROOM [id number] 18 [id number] [place] PPO 302/307 [id number] SP [id number] [place] [facility] [place] O [id number] 1 8 [id number] [place] P[place] 302/307 [id number] SP [id number] SELF PAY UNAVAILABLE UNAVAILA BLE [place] PPO 302/307 [id number] SP [id number] SELF PAY ONLY [id number] SP [id number] BCBS OF [place] 306/806 [id number] SP [id number] EXCELLUS BCBS B [id number] S VYS [id number] [place]ED[place] [id number] SP [id number] MEDICAID [id number] SP [id number] [place]BS [place] PPO 302/307 [id number] SP [id number] [facility] [id number] SP [id number] [facility] [id number] Self [id number] ANSI-Not a Secondary Insurance [id number] [place] [id number] Self [id number] EXCELLUS BCBS B [id number] S [id number] ANSI-Commercial [id number] [place] PPO 302/307 [id number] SP [id number] [place]PO 302/307 [id number] SP [id number] [place] [id number] Self [id number] [place] [id number] Self [id number] Problems, Conditions, and Diagnoses Code Display Name Description Problem Type Effective Dates Data Source(s) HX: breast cancer [Z85.3] HX: breast cancer [Z85.3] Di agnosis 01/27/2021 06:32:[address] [facility] S/P bilateral mastectomy [Z90.13] S/P bilateral mastec rosangela [Z90.13] Diagnosis 01/27/2021 06:32:[address] [facility] Z20.828 Contact with and (suspected) exposure to other viral communicable diseases Contact with and (suspected) exposure to other viral communicable diseases Diagnosis 01/24/2021 01:45:56 PM EDT [facility] Status post bilateral mastectomy [Z90.13 ] Status post bilateral mastectomy [Z90.13] Diagnosis 08/05/2020 10:17:00 AM [facility] [id number] Pure hypercholesterolemia Pure hypercholesterolemia Pr oblem 03/24/2021 12:00:00 AM EDT [facility] ([facility]) G47.33 Obstructive sleep apnea syndrome Obstructive sle ep apnea syndrome Problem 12/29/2020 12:00:00 AM EDT [facility] ([facility]) E78.00 Pure hypercholesterolemia Pure hypercholesterolemia Pr oblem 12/29/2020 12:00:00 AM EDT [facility] ([facility]) R73.09 Abnormal glucose level Abnormal glucose level Problem 12/29/2020 12:00:00 AM EDT [facility] ([facility]) N20.0 Kidney stone Kidney stone Problem 12/29/2020 12:00:00 A M EDT [facility] ([facility]) K57.92 Diverticulitis of colon Diverticulitis of colon Proble m 12/29/2020 12:00:00 AM EDT [facility] ([facility]) I10 Essential hypertension Essential hypertension Problem 12/29/2020 12:00:00 AM EDT [facility] ([facility]) I47.1 Paroxysmal supraventricular tachycardia Paroxysmal supraventricular tachycardia Problem 12/29/2020 12:00:00 AM EDT [facility] ([facility]) Surgeries/Procedures Procedure Description Date Indications Data Source(s) OFFICE OUTPATIENT VISIT 15 MINUTES 04/06/2021 12:00:00 AM EDT [facility] ([facility]) OFFICE OUTPATIENT VISIT 10 MINUTES 03/30/2021 12:00:00 AM EDT [facility] ([facility]) RADIOLOGIC EXAM KNEE COMPLETE 4/MORE VIEWS 03/23/2021 12:00:00 AM EDT [facility] ([facility] ) RADEX FOOT COMPLETE MINIMUM 3 VIEWS 03/23/2021 12:00:0 0 AM EDT [facility] ([facility] ) OFFICE OUTPATIENT VISIT 25 MINUTES 03/23/2021 12:00:00 AM EDT [facility] ([facility] ) RADIOLOGIC EXAM KNEE COMPLETE 4/MORE VIEWS 03/23/2021 12:00:00 AM EDT [facility] ([facility] ) RADEX FOOT COMPLETE MINIMUM 3 VIEWS 03/23/2021 12:00:0 0 AM EDT [facility] ([facility] ) LAB RESULTS (OUTSIDE/HISTORICAL) <td>LAB RESULTS (OUTSIDE/HISTORICAL)</td><td></td><td>01/25/2021 12:50 PM EDT</td><td></td><td></td> 01/25/2021 12:50:50 PM EDT [facility] MISC SCANNED ORDER <td>MISC SCANNED ORDER</td>< td></td><td>01/25/2021 12:49 PM EDT</td><td></td><td></td> 01/25/2021 12:49:46 PM EDT [facility] OFFICE OUTPATIENT VISIT 25 MINUTES 12/29/2020 12:00:00 AM EDT MEDL[facility]Y ([facility]) PERIODIC PREVENTIVE MED EST PATIENT 40-64YRS 12:00:00 AM EDT [facility] ([facility]) Colonoscopy 07/30/2020 12:00:00 AM EST M DILLON ([facility]) Colonoscopy Flexible Proximal To Splenic Flexure W/Biopsy Si ngle/ 07/30/2020 12:00:00 AM EST [facility] ([facility]) OFFICE OUTPATIENT VISIT 25 MINUTES 07/29/2020 12:00:00 AM EST TABATHA ([facility]) ECG ROUTINE ECG W/LEAST 12 LDS W/I&R 06/24/2020 12:00: 00 AM EST [facility] ([facility]) Bone Mineral Density Test 06/08/2020 12:00:00 AM EST [facility] ([facility]) Results ID Date Data Source [id number] 04/26/2021 12:00:00 AM EDT [facility] Name Value Range Interpretation Code Description Data Frances rce(s) Supporting Document(s) SARS coronavirus 2 Ag NEGATIVE [facility] This lab was ordered by DRUZESYLVESTER [facility] and reported by [facility]. ID Date Data Source [id number] 04/19/2021 01:25:00 PM EDT [facility] ([facility]) Name Value Range Interpretation Code Description Data Frances rce(s) Supporting Document(s) Glucose, Fasting 85 mg/dL 70-100 [facility] ([facility]) Blood Urea Nitrogen 20 mg/dL 7-18 [facility] ([facility]) Creatinine For GFR 0.65 mg/dL 0.55-1.30 [facility] Sodium Level 141 meq/L 136-145 [facility] ([facility]) Glomerular Filtration Rate [facility] <content>Units are mL/min/1.73 m2</content>
<content></content>
<content>Chronic Kidney Disease Staging per NKF:</content>
<content></content>
<content>Stage I & II GFR >=60 Normal to Mildly Decreased</content>
<content>Stage III GFR 30- 59 Moderately Decreased</content>
<content>Stage IV GFR 15-29 Severely Decreased</content>
<content>Stage V GFR <15 Very Little GFR Left</content>
<content>ESRD GFR <15 on FUR FINISHER TAILOR</content>
<content></content> Carbon Dioxide Level 27 meq/L 21-32 [facility] ([facility]) Potassium Serum 3.9 meq/L 3.5-5.1 [facility] ([facility]) Chloride Level 109 meq/L 98-107 [facility] ([facility]) Anion Gap 5 meq/L 8-16 [facility] ([facility] Calcium Level 8.6 mg/dL 8.5-10.1 [facility] ([facility]) ID Date Data Source [id number] 04/19/2021 01:25:00 PM EDT [facility] ([facility]) Name Value Range Interpretation Code Description Data Frances rce(s) Supporting Document(s) Triglycerides Level 221 mg/dL [facility]) Cholesterol Level 194 mg/dL [facility] ([facility]) HDL Cholesterol 49 mg/dL [facility] ([facility]) LDL Cholesterol 101 mg/dL [facility] ([facility]) Non-HDL-C 145 mg/dL [facility] ([facility]) Cholesterol Risk Ratio 3.959 [facility] ([facility]) ID Date Data Source [id number] 04/18/2021 08:54:52 PM EDT [facility] PCName: Zahra BragaDOB: 1970Provider: Bertram Thrasher: 04/04/2021 Reason For VisitMilapetra Braga is here today for foot and ankle. Zahra had her second Covid vaccine on 11/01/2020. Zahra Braga is an established patient here for follow up. Patient states she fell down the stairs about one month ago causing increased pain. Patient states the injury occurred after a fall, at home. 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 AssessmentHISTORY OF PRESENT ILLNESSLeft foot and ankleOnset of of injury was ap proximately 4 weeks ago fallAffecting ADLs, decrease standing walking tolerancePain is located over the medial aspect of the ankle as well as over the great toePain is exacerbated with prolonged standing and walkingNo relieving factors notedAssociated swellingNo complaints of calf pain or shortness of breathPHYSICAL EXAMINATION Constitutionally appears well and in no obvious distressPatient is alert and oriented x 3 and exhibits normal mood and affectRespiratory:Breathing at a regular rateVascular: Palpable 2+ pulses at the dorsalis pedis and posterior tibial levelNeurologic: Intact sensation to light touch in the superficial, peroneal and deep peroneal nerve distributionNo muscle atrophy in foot/ankleSkin: No rashes or ulcerations notedMusculoskeletal: Calf is non-tender on palpationLeft Ankle/Hindfoot Alignment of ankle is neutralMild swelling notedTenderness on palpation of the deltoid and ATFLAchilles is intact with no palpable defectsAnkle motion is slightly restrictedAnkle joint is stableLeft Midfoot/ForefootAlignment is neutralNo swelling noted, tenderness on palpation of the first MTP jointRADIOLOGICAL IMAGINGRadiographs were completed today in the clinic left foot 3 views, left ankle 2 viewImaging interpreted there is an osteophyte involving the first metatarsal head, first MTPJ arthritisDIAGNOSIS Left ankle sprain, ATFL and deltoidLeft first MTP joint arthritis, primaryLeft hallux rigidusLeft pes planusMEDICAL DECISION MAKING I reviewed the above findings in detail with the patient.I have given her a prescription today for physical therapy to address her left ankle sprainI have talked to her as well about her hallux rigidus and arthritis of the first MTP joint at this point she like to proceed nonoperatively since her symptoms are well relatively well ijzyjsxlzzAvoz-ptq-mdjijji Tylenol and NSAIDs as needed for pain controlPatient will contact the office if after 4 weeks is having ongoing pain involving the ankle joint, at that point will obtain an MRIRisk of deep vein thrombosis and pulmonary embolus reviewed with patient, including signs and symptoms. The patient is aware of the need to seek medical treatment immediately if experiencing any of these signs or symptoms.PLANPhysical therapy referral was provided Parts of this document dictated using Uncovet software in [employer] Plan<OBX.5.1><OBX.5.1.1> X-Ray I Ankle 2 Views </OBX.5.1.1><OBX.5.1.2> Foot 3 Views (XRays were ordered, obtained and interpreted</OBX.5.1.2></OBX.5.1>today in the office. Indication: pain/dysfunction.); Status:Complete; Done: 04Apr2021 Perform:SOS22; Due:18Apr2021; Last Updated By:Balta Sow; 04/04/2021 10:13:13 AM;Ordered; For:Left ankle pain, Left foot pain; Ordered By:Americo Thrasher;Laterality: : Left Physical Therapy (SOS) - General Treatment Treatment Status: Complete Done:04Apr2021 Ordered;For: Left ankle pain; Ordered By: Americo Thrasher Performed: Order Comments: Left ankle sprain, ATFL, deltoid Due: 18Apr2021; Last Updated By: Lizz rAcher; 04/04/2021 10:34:32 AMPT Protocol : Evaluate and treat as indicated, per protocol or as previously written.Duration: : Four WeeksPT Frequency : Two or three times a weekLaterality and Body Part: : Left ankle Signatures Electronically signed by : Americo Thrasher M.D.; Apr 04 2021 10:36AM EST (Author) Electronically signed by : Americo Thrasher M.D.; Apr 18 2021 8:54PM EST (Author) Name Value Range Interpretation Code Description Data Frances rce(s) Supporting Document(s) ID Date Data Source [id number] 03/02/2021 12:10:50 PM EDT [facility] - CORE SPECIMEN DESCRIPTION BREAST RIGHTSPECIAL REQUESTS NONEGRAM STAIN FEW (<10/LPF) WHITE BLOOD CELLS NO BACTERIACULTURE RESULTS NO GROWTHREPORT STATUS FINAL 03/02/2021 Name Value Range Interpretation Code Description Data Frances rce(s) Supporting Document(s) ID Date Data Source [id number] 01/28/2021 07:33:05 PM EDT [facility] Name Value Range Interpretation Code Description Data Frances rce(s) Supporting Document(s) Operative Note [facility] YNLHZh9lTfGMJkBk02/ZAJckFICna1JbPGgfJXi4CNoxVPTyC1BjMQY9kX9xFPQ7INvBPlQuYyCjWoFw [facility] [file] ALD0HXHUOzXbNB8KUBh= ID Date Data Source [id number] 01/27/2021 05:00:15 PM EDT [facility] Name Value Range Interpretation Code Description Data Frances rce(s) Supporting Document(s) Progress Note [facility] PKOYBm8xLcZOOfPk64/MXDlyPGHgl5IaEHieTLc5DTonYBGaJ1PwKSC2xQ0cYUB2GWaCVkPqTgNuAqRy lbm [file] ICAgICAgICAgICAgICAgICAgICAgICAgICAgICAgICAgICAgICAgICAgICAgICAgICAgICAgICAgICAg LFMiQRNqJLPhIWHnCVFnJS8HKGGfWPKeDRMeVFMaICQmXJAqQJZcJPSgQAIpXLWnKEDnBJDuLTQoAXMo ICAgICAgICAgICAgICAgICAgICAgICAgICAgICAgIC YwCFMlCVFiNFKeUNPpGJWkYKGjCZCeIRFxAU4YENVeFUPqKVXcBVEdHBEhMGFkNATeBQLjAMDgEBFhBO AgICAgICAgICAgICAgICAgICAgICAgICAgICAgICAgICAgICAgICAgICAgICAgICAgICAgICAgICAgIC CdIQSmRMTnAW0HLOTuCRHyDRIhNBMkBYFsJSGeETYg ICAgICAgICAgICAgICAgICAgICAgICAgICAgICAgICAgICAgICAgICAgICAgICAgICAgICAgICAgICAg WBSsSZUbWHLpTJNkQKRwGRJoUR9YZOSkGPXyAAUhQCEzTWEgTUMwDYVhBQAiCWZfZPUaVFTwQOAvKVZo ICAgICAgICAgICAgICAgICAgICAgICAgICAgICAgIC RyUNLvHVZpUDJrDYQiMPUcFXAzBBNnQGFvVNUqKF1WAVIdIRNwJESaIGGoTCCzZPGyCDZzXBZvNFIiHS AgICAgICAgICAgICAgICAgICAgICAgICAgICAgICAgICAgICAgICAgICAgICAgICAgICAgICAgICAgIC FuERMyMPRnWCAeXN3BICUqPOYzKQSkVUKvYKUoMHGk ICAgICAgICAgICAgICAgICAgICAgICAgICAgICAgICAgICAgICAgICAgICAgICAgICAgICAgICAgICAg ESStGWKqIHBuWUEoLQShJQXzUYEmFW0YSSYvDXChZRAlMCIbURVxEVBlPTEaQBMkZYFxIIDvSFPdTUIx ICAgICAgICAgICAgICAgICAgICAgICAgICAgICAgIC IcYEKvSGJuVEMwBTBmLVLtDLYrACDnHPFdEHSrVZAzRF7BENSvWRJbJHEhCZYcVJUwLGUkPLJnCUEvHE AgICAgICAgICAgICAgICAgICAgICAgICAgICAgICAgICAgICAgICAgICAgICAgICAgICAgICAgICAgIC NfVJMfGUBlRAHcKLLdXB7LSCEnFBEyUGTsRQRoLENn ICAgICAgICAgICAgICAgICAgICAgICAgICAgICAgICAgICAgICAgICAgICAgICAgICAgICAgICAgICAg TLLpMDWfMDYkHXYuUAHtHTCjKYWqPNTtAR1GVF09xFQfc7I8TDWcOH1vdzp/Ik2BLTrmyoJvfAPfFH4V WrZcCA8dom8CUkHzMG4fmd0KXYkGGiRxH3R5uKMuGK SbCAYPKoArA83dDUmiEy43ZDgeYAKxWzFrIIm9Oz3ANkRcK6pwTINbNoI9REFgRvRrJJsrWV1Eq8LghT AxDQo+Xv4ORE9la1LpAMfxAJGvGB0fxf4ZHDaBBtBcC8PmkoO0PRJ8ZJAoFg6FFXCtQEErkYLjRTGwHJ MVFaElY2FjlO75VGTPFa4+ZLckepYcOgdAYdE3LVFj t3TkTLs9KH1OZRDqOZa5zZYuWFGiS4Yil5NfEs95TXTmNdwqYYPvhSYiFPSvVe8ePLegCv1eUDEaRa5o Sd2mPACpOMB0MxU6IVVMNV9NOVIuBJLzgRKiRZLrRZCTBW8PIYokPJL4LDXnahGweGEvEOlmMS3OUIYb bnQgMTQgMCBSDQo+Un8IBO0il7LuPScsRsPlNA4gnc 2HLTtRJjWpJ8J6aJUkC5L2XEhgYc1HXQGcTOVvNEMxQAMTXSftYG4CWK0ldtA7TE5FzMNiKKVnFXOlqI KfNOt3X75maQZpJXrgOB6LUCZ+Chalino+Ru6DWKRkMKPpVPVsUaIfJFHTNuQcL0KfN5AOq6UsD5QrNO16fC hdlpFmCIquZB9STQ4fNRGuBURCOW3LhABklU7lheJf HLPgRSRCNzZjB70jiQRcUDKvPMZuEONgTs4CSGVjS6DzdeVorRujcsEnKJQyAUOEOC0TGWxkhbMoaKPn fDnvUW49oGuaLP6DGf5REqZjJW7lmh2ZqIWdXq1QZASiXy2ENLKcEOOxWMYpHQN7UYUqHdQmYKanAHCn ZAYdFXJ9LOUsUBLfNO8KKcFrDYUxVVWxDiVgLVUdRT Lwxr7TCRFnZRYhRqy6ASUqUUZtTXZxUBogZTPkDFRvFJB1VVJiIGJrEP6ZXmFmVIHpRKUwUwCqOKPcNS Nmkx1VJMWlALUoCdL3IHRuUPRfEJJoFTehZPQrMEZeQfP0WPImTOWiLF6YIlXkCKRqFYN5JxYxEPRgCH Ipzl5ZDRCxNGHaBedoOCIwXTSoKLKdPYgsUKHpMUV3 MeKeDCYgBTJvHO6PErRpKTToJHH1OwFxDLKxODYcgm3WUGCsWRSnHTP2PCKgNLZgYYEuNSsiYDNrBVR4 MMO0YPQhNYTmOJ5EXrAyIGPkUTP2VZUxVWJzPXPnaf3TYZKlBKSkNym4CTQrFIGgSBDvSSojIPRrNVY1 UFAzJUKuNKCnQL5KHoDcVNpwYOSVYwh4XStpZ8f5TG BoNl9GH5Peo5FrUZBfEWZDOMjfJZ9itwYsXUHfTo6AI6kJLahsK8S1RCP1WGKkXKO3ASo3MDDcBYKxWI guUoBwLRS0RE4rUPEvAmviXsPfC9O0TqmtBoe5QmHsMRWqKSP0RQLeKmLnLpEiGC6GYh5RCiG3DSG5eQ LfJw2OAsQ8Al5CKISBI4WFJv== ID Date Data Source [id number] 01/27/2021 08:52:01 AM EDT [facility] Name Value Range Interpretation Code Description Data [facility](s) Supporting Document(s) History and Physical [facility] GZZKGu3zOaFERnFv45/CFJbiXZZcy6QrPEarTFe8RNavINMuJ6XjSCI9qX1bJTO7CUzGFcOjEcJuWxAp lbm [file] ZZUzA5EcMhqhZFRqZbUqMf0pEWXQGf9+KXgnfFXalJfzICQAZoS0RcRPCoUgFB6WCOq= ID Date Data Source [id number] 02/03/2021 12:30:00 PM EDT [facility] Surgical Pathology ReportName: HERNANDEZ SALGUERORN: [id number] Number: [id number] Date: 01/27/2021 00:00Received Date: 01/28/2021 08:51Physician(s): QUETELL,HOPE QUETELL,MIKALMOSpecimen(s) ReceivedA: Right breast scarB: Right breast extra skinC: Right breast and right chest wall excess skinD: Left breast scarE: Bilateral breast expandersF: Left breast extra skinG: Left lateral breast and chest wall excess skinClinical HistoryHistory of cancer and radiation.DiagnosisA) SKIN, RIGHT BREAST, EXCISION: SKIN WITH SCAR. B) SKIN, RIGHT BREAST, EXCISION: SKIN WITH SCAR. C) SKIN, RIGHT BREAST, EXCISION: NO SIGNIFICANT PATHOLOGIC CHANGES. D) SKIN, LEFT BREAST, EXCISION: SKIN WITH SCAR. 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 G) SKIN, LEFT LATERAL BREAST, EXCISION: BENIGN SKIN WITH UNDERLYINGBENIGN ADIPOSE TISSUE. Electronically Signed By Niels Breaux MD, Attending Pathologist 112: 30:17Processed at [facility] Pathology Laboratory at [facility], [address] [place] [id number]. [facility], [address] [place] [address]. Unless 'gross-only' is specified, the final diagnosis is based hal microscopic examination of manufacturer's representative sections of tissue.Gross DescriptionThe specimen is received in seven parts. Part A is received in formalin and labeled with the patient's name,"Zahra Pan" and "right breast scar". It consists of anunoriented skin ellipse measuring 3.7 x 0.8 by up to 0.5 cm. The surfaceis lancaster and wrinkled with a slightly thickened appearance. No lesions areseen. The cut surfaces are predominantly fatty and lobulated. No lesionsare seen. Tissue is entirely submitted in one cassette. Part B is received in formalin and labeled with the patient's name,"Zahra Pan" and "right breast extra skin". It consists ofmultiple irregular unoriented skin fragments measuring from 2 cm up to 5cm in greatest dimension. The surfaces are lancaster wrinkled and focallythickened. The cut surfaces are predominantly fatty yellow and lobulated. No mass lesions are seen. Refrigerator Crater sections are submitted in onecassette. Part C is received in formalin and labeled with the patient's name,"Zahra Pan" and "right breast and right chest wall excessskin". It consists and an oriented irregular portion of skin measuring 13x 6 by up to 1.5 cm. The surface is lancaster and wrinkled with no lesions. The cut surfaces are predominantly yellow lobulated and fatty. No masslesions are seen. Refrigerator Crater sections are submitted in one cassette. Part D is received in formalin and labeled with the patient's name,"Zahra Pan" and "left breast scar". It consists an elongateunoriented skin measuring 8.2 x 0.4 x 0.4 cm. The surface is wrinkledwith no lesions seen. The cut surfaces are dense and fibrous. Refrigerator Crater sections are submitted in one cassette. Part E is received in formalin and labeled with the patient's name,"Zahra Pan" and "bilateral breast implants". It consists of 2collapsed breast expanders each measuring 15 x 13 by up to 3 cm. Thesurfaces are smooth although slightly blood chest. Stamp zeng arepresent on each designating the following: "[place] [id number] 600 cc" and "[place] [id number] 550 cc". No soft tissue is present. Minimal clear fluidis present within each document reviewer. Gross examination only.Part F is received in formalin and labeled with the patient's name,"Zahra Pan" and "left breast excess skin". It consistselliptical unoriented portion of skin measuring 4.3 x 1.5 x 1 cm. Surfaceis white wrinkled and slightly thickened. The cut surfaces are fibrouswith peripheral yellow lobulated fat no lesions are seen. Representativesections are submitted in one cassette. NMD\\Part G is received in formalin and labeled with the patient's name,"Zahra Pan" and "left lateral breast and chest wall excessskin". It consists unoriented elliptical portion of skin measuring 11.2 x4.8 by up to 2 cm. Surface is white wrinkled with no lesions seen. Thecut surfaces are predominantly yellow lobulated and fatty. No masslesions are seen. Refrigerator Crater sections are submitted in one cassette. NMD\\This report may include one or more immunohistochemical stain results thatuse analyte specific reagents. All positive and negative controls havebeen reviewed by the attending pathologist and are satisfactory. The testswere developed and their performance characteristics determined by [facility] Pathology department. They have not been cleared or approved by the USFood and Drug Administration. The FDA has determined that such clearanceor approval is not necessary. Name Value Range Interpretation Code Description Data [facility] rce(s) Supporting Document(s) ID Date Data Source [id number] 01/24/2021 01:47:08 PM [facility] Name Value Range Interpretation Code Description Data [facility](s) Supporting Document(s) Progress Note [facility] OQVCDs1lEiHTAtUb48/RRZbxSMKra3GwLBivQZh7WIivTMIcR0DpBFY1kZ4oHIK6PTnCZxJeBhLwQtE4 [facility] [file] 0gDQo+Ww1Hr6EbkbK2nzLoHMmzAQSnSi3FZFHEX5KGQl== ID Date Data Source [id number] 01/24/2021 01:45:00 PM EDT [facility] Name Value Range Interpretation Code Description Data Frances rce(s) Supporting Document(s) SARS-CoV-2 RNA 2019 nCoV Real-Time RT-PCR: NOT [facility]ECTED [facility] lab was ordered by [facility] and reported by [facility]. ID Date Data Source [id number] 01/25/2021 04:54:37 AM EDT [facility] Name Value Range Interpretation Code Description Data Frances rce(s) Supporting Document(s) Specimen source [Identifier] of Unspecified specimen [facility] SARS-CoV-2 RNA 2019 nCoV Real-Time RT-PCR: NOT DETECTED 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 Patient has symptoms related to [facility] When did you start to experience these symptoms [Date and time] [Phen X] [facility] Patient was hospitalized because of this condition [facility] patient was admitted to ICU for [facility] Patient resides in a congregate care setting [facility] status [facility] ID Date Data Source [id number] 01/24/2021 08:06:00 AM EDT [facility] ([facility]) Name Value Range Interpretation Code Description Data Frances rce(s) Supporting Document(s) Blood Urea Nitrogen 17 mg/dL 7-18 [facility] ([facility]) Glucose, Fasting 109 mg/dL 70-100 [facility] ([facility]) Creatinine For GFR 0.65 mg/dL 0.55-1.30 [facility] ([facility]) Sodium Level 142 meq/L 136-145 [facility] ([facility]) Glomerular Filtration Rate Laboratory test result [facility] ([facility]) <content>Units are mL/min/1.73 m2</content>
<content></content>
<content>Chronic Kidney Disease Staging per NKF:</content>
<content></content>
<content>Stage I & II GFR >=60 Normal to Mildly Decreased</content>
<content>Stage III GFR 30- 59 Moderately Decreased</content>
<content>Stage IV GFR 15-29 Severely Decreased</content>
<content>Stage V GFR <15 Very Little GFR Left</content>
<content>ESRD GFR <15 on [employer] TAILOR</content>
<content></content> Carbon Dioxide Level 23 meq/L 21-32 [facility] ([facility]) Potassium Serum 3.4 meq/L 3.5-5.1 [facility] ([facility]) Chloride Level 112 meq/L 98-107 [facility] ([facility]) Calcium Level 8.4 mg/dL 8.5-10.1 [facility] ([facility]) Anion Gap 7 meq/L 8-16 [facility] ([facility] Ast/Sgot 17 U/L 7-37 [facility] ([facility]) Alt/SGPT 37 U/L 12-78 [facility] ([facility]) Bilirubin,Total 0.3 mg/dL 0.2-1.0 [facility] ([facility]) Alkaline Phosphatase 72 U/L 45-117 [facility] ([facility]) Total Protein 7.2 GM/DL 6.4-8.2 [facility] ([facility]) Albumin 3.6 GM/DL 3.2-5.2 [facility] ([facility]) Albumin/Globulin Ratio 1.0 1.2-2.2 [facility] ([facility]) ID Date Data Source [id number] 01/24/2021 08:06:00 AM EDT [facility] ([facility]) Name Value Range Interpretation Code Description Data Frances rce(s) Supporting Document(s) Red Blood Count 4.61 10 4.00-5.40 [facility] ([facility]) White Blood Count 6.7 10 4.0-10.0 [facility] ([facility]) Hematocrit 41.2 % 36.0-47.0 [facility] ([facility]) Hemoglobin 13.6 g/dL 12.0-15.5 [facility] ([facility]) Mean Corpuscular Hemoglobin 29.5 pg 27.0-33.0 ME [facility] ([facility]) Mean Corpuscular Volume 89.4 fl 80.0-96.0 [facility] ([facility]) Mean Corpuscular HGB Conc 33.0 g/dL 32.0-36.5 MEDE NT ([facility]) Red Cell Distribution Width 12.8 % 11.5-14.5 [facility] ([facility]) Platelet Count, Automated 250 10 150-450 [facility] NT ([facility]) Neutrophils % 55.6 % 36.0-66.0 [facility] Lymph % 32.4 % 24.0-44.0 [facility] ([facility]) Eos % 2.5 % 0.0-3.0 [facility] ([facility]) Kerr % 8.5 % 2.0-8.0 [facility] ([facility]) Immature Granulocyte % 0.4 % 0-3.0 [facility] ([facility]) Baso % 0.6 % 0.0-1.0 [facility] ([facility]) Nucleated Red Blood Cell % 0.0 % 0-0 MED ENT ([facility]) Neutrophils # 3.7 10 1.5-8.5 [facility] Kerr # 0.6 10 0.0-0.8 [facility] ([facility]) Lymph # 2.2 10 1.5-5.0 [facility] ([facility]) Eos # 0.2 10 0.0-0.5 [facility] ([facility]) Baso # 0.0 10 0.0-0.2 [facility] ([facility]) ID Date Data Source [id number] 01/18/2021 12:50:00 PM [facility]T [facility] Name Value Range Interpretation Code Description Data Frances rce(s) Supporting Document(s) Color, Urine Laboratory test result MEDE NT ([facility]) Appearance, Urine Laboratory test result [facility] PH,Urine 5.0 units 5.0-9.0 [facility] ([facility]) Specific [place] Urine Auto 1.015 1.002-1.035 [facility] Protein, Urine Auto Laboratory test result [facility] Ketone, Urine Auto Laboratory test result [facility] ([facility]) Glucose, Urine (Ua) Auto Laboratory test result [facility] Urobilinogen, Urine Auto 0.2 mg/dL 0.0-2.0 MEDEN T [facility] Bilirubin, Urine Auto Laboratory test result [facility] Nitrite, Urine Auto Laboratory test result [facility] Blood, Urine Blood Laboratory test result [facility] Leukocyte Esterase, Urine Auto Laboratory test result [facility] RBC, Urine Auto 0 /HPF 0-3 [facility] ([facility]) Bacteria, Urine Auto Laboratory test result [facility] WBC, Urine Auto 1 /HPF 0-3 [facility] ([facility]) Hyaline Cast, Urine Auto 0 /LPF 0-1 [facility] T [facility] Squamous Epithelial Cell Ur AU 0 /HPF 0-6 [facility] ID Date Data Source [id number] 01/18/2021 12:47:00 PM EDT [facility] Name Value Range Interpretation Code Description Data Frances rce(s) Supporting Document(s) HCG Serum Qualitative Laboratory test result [facility] Actin IgG Ab [Units/volume] in Serum or Plasma 5 units 0-19 [facility] Negative 0 - 19 Weak positive 20 - 30 Moderate to strong positive >30 . Actin Antibodies are found in 52-85% of patients with autoimmune hepatitis or chronic active hepatitis and in 22% of patients with primary biliary cirrhosis. Performed at: RN - [facility] [address] [id number] Repeat Chief: Julia Garcia MD, Phone: [phone] ID Date Data Source [id number] 01/18/2021 12:46:00 PM EDT [facility] ([facility]) Name Value Range Interpretation Code Description Data Frances rce(s) Supporting Document(s) White Blood Count 6.7 10 4.0-10.0 [facility] ([facility]) Red Blood Count 4.77 10 4.00-5.40 [facility] ([facility]) Hemoglobin 14.3 g/dL 12.0-15.5 [facility] ([facility]) Hematocrit 43.2 % 36.0-47.0 [facility] ([facility]) Mean Corpuscular Volume 90.6 fl 80.0-96.0 [facility] ([facility]) Mean Corpuscular Hemoglobin 30.0 pg 27.0-33.0 CT DENT ([facility]) Mean Corpuscular HGB Conc 33.1 g/dL 32.0-36.5 MEDE NT ([facility]) Neutrophils % 57.4 % 36.0-66.0 [facility] ([facility]) Platelet Count, Automated 267 10 150-450 [facility] NT ([facility]) Red Cell Distribution Width 12.7 % 11.5-14.5 ME [facility] ([facility]) Lymph % 29.9 % 24.0-44.0 [facility] ([facility]) Eos % 2.0 % 0.0-3.0 [facility] ([facility]) Kerr % 8.7 % 2.0-8.0 [facility] ([facility]) Immature Granulocyte % 1.1 % 0-3.0 [facility] ([facility]) Baso % 0.9 % 0.0-1.0 [facility] ([facility]) Nucleated Red Blood Cell % 0.0 % 0-0 MED ENT ([facility]) Lymph # 2.0 10 1.5-5.0 [facility] ([facility]) Neutrophils # 3.8 10 1.5-8.5 [facility] ([facility]) Baso # 0.1 10 0.0-0.2 [facility] ([facility]) Eos # 0.1 10 0.0-0.5 [facility] ([facility]) Kerr # 0.6 10 0.0-0.8 [facility] ID Date Data Source [id number] 01/07/2021 09:04:40 AM EDT Laboratory [facility] - CORE SPECIMEN DESCRIPTION NASALSPECIAL REQUESTS NONECULTURE RESULTS NO METHICILLIN RESISTANT STAPH AUREUS ISOLATED.REPORT STATUS FINAL 01/07/2021 Name Value Range Interpretation Code Description Data Frances rce(s) Supporting Document(s) ID Date Data Source [id number] 12/30/2020 12:00:00 AM [facility]T [facility] Name Value Range Interpretation Code Description Data Frances rce(s) Supporting Document(s) SARS coronavirus 2 Ag NEGATIVE [facility] This lab was ordered by [facility] and reported by [facility]. ID Date Data Source [id number] 12/28/2020 08:47:00 AM EDT [facility] ([facility]) Name Value Range Interpretation Code Description Data Frances rce(s) Supporting Document(s) Thyroxine (T4) free [Mass/volume] in Serum or Plasma 0.83 ng/dL 0.76- 1.46 [facility] ([facility]) ID Date Data Source [id number] 12/28/2020 08:47:00 AM EDT [facility] Name Value Range Interpretation Code Description Data Frances rce(s) Supporting Document(s) Thyrotropin [Units/volume] in Serum or Plasma by Detec tion limit <= 0.05 mIU/L 4.95 uIU/mL 0.36-3.74 [facility] ([facility] ) ID Date Data Source [id number] 12/28/2020 08:47:00 AM EDT [facility] ([facility]) Name Value Range Interpretation Code Description Data Frances rce(s) Supporting Document(s) Glucose [Mass/volume] in Serum or Plasma 113 mg/dL 74-99 [facility] ([facility]) 100-125 mg/dL PRE-DIABETES/FASTING >126 mg/dL DIABETES/FASTING Creatinine 1.0 mg/dL 0.6-1.3 [facility] ([facility] ntern[facility]) Urea nitrogen [Mass/volume] in Serum or Plasma 22 mg/dL 7-18 [facility] ([facility]) Sodium [Moles/volume] in Serum or Plasma 139 meq/L 136-145 [facility] ([facility]) Potassium [Moles/volume] in Serum or Plasma 4.2 meq/L 3.5-5.1 [facility] ([facility]) Chloride [Moles/volume] in Serum or Plasma 104 meq/L 98-107 [facility] ([facility]) Calcium [Mass/volume] in Serum or Plasma 8.8 mg/dL 8.5-10.1 [facility] ([facility]) Carbon dioxide, total [Moles/volume] in Serum or Plasma 24 meq/L 21 -32 [facility] Glomerular filtration rate/1.73 sq M pre dicted among blacks [Volume Rate/Area] in Serum or Plasma by Creatinine-based formula (MDRD) Laboratory test result [facility] <content>CHRONIC KIDNEY DISEASE STAGING PER NKF</content>
<content></content>
<content>STAGE I & II GFR >= 60 NORMAL TO MILDLY DECREASED</content>
<content>STAGE III GFR 30-59 MODERATELY DECREASED</content>
<content>STAGE IV GFR 15-29 SEVERELY DECREASED</content>
<content>STAGE V GFR <15 VERY LITTLE GFR LEFT</content>
<content>ESRD GFR <15 ON FUR FINISHER TAILOR</content>
<content></content> Glomerular filtration rate/1.73 sq M pre dicted among non-blacks [Volume Rate/Area] in Serum or Plasma by Creatinine-based formula (MDRD) 58 mL/min [facility] ID Date Data Source [id number] 12/28/2020 08:47:00 AM EDT [facility] ([facility]) Name Value Range Interpretation Code Description Data Frances rce(s) Supporting Document(s) Cholesterol [Mass/volume] in Serum or Plasma 203 mg/dL 131-200 [facility] ([facility]) Triglyceride [Mass/volume] in Serum or Plasma 390 mg/dL 30-150 [facility] ([facility]) Cholesterol in LDL [Mass/volume] in Serum or Plasma by calcu lation 81 CALC 50-159 [facility] ([facility]) Cholesterol in HDL [Mass/volume] in Serum or Plasma 44 mg/dL 35-60 [facility] ([facility]) ID Date Data Source [id number] 12/28/2020 08:47:00 AM EDT [facility] Name Value Range Interpretation Code Description Data Frances rce(s) Supporting Document(s) Glucose [Mass/volume] in Serum or Plasma 112 mg/dL 74-99 [facility] ([facility]) 100-125 mg/dL PRE-DIABETES/FASTING >126 mg/dL DIABETES/FASTING ID Date Data Source [id number] 12/21/2020 12:00:00 AM EDT [facility] Name Value Range Interpretation Code Description Data Frances rce(s) Supporting Document(s) SARS-CoV2 Rapid Antigen Negative [facility] This lab was ordered by [facility] and reported by [facility]. ID Date Data Source [id number] 12/13/2020 12:00:00 AM EDT [facility] Name Value Range Interpretation Code Description Data Frances rce(s) Supporting Document(s) SARS coronavirus 2 Ag NEGATIVE [facility] This lab was ordered by [facility] and reported by [facility]. ID Date Data Source [id number] 12/07/2020 12:00:00 AM EDT [facility] Name Value Range Interpretation Code Description Data Frances rce(s) Supporting Document(s) SARS coronavirus 2 Ag NEGATIVE [facility] This lab was ordered by [facility] and reported by [facility]. ID Date Data Source [id number] 12/02/2020 12:00:00 AM EDT [facility] Name Value Range Interpretation Code Description Data Frances rce(s) Supporting Document(s) SARS coronavirus 2 Ag NEGATIVE [facility] This lab was ordered by [facility] and reported by [facility]. ID Date Data Source [id number] 11/15/2020 12:26:00 PM EDT [facility] Name Value Range Interpretation Code Description Data Frances rce(s) Supporting Document(s) SARS-CoV-2 (COVID-19) RNA [Presence] in Respiratory specimen by BALJEET with probe detection Not Detected [facility] This lab was ordered by [facility] and reported by [employer] ID Date Data Source [id number] 11/08/2020 03:19:00 PM EDT [facility] Name Value Range Interpretation Code Description Data Frances rce(s) Supporting Document(s) SARS-CoV-2 (COVID-19) RNA [Presence] in Respiratory specimen by BALJEET with probe detection Not Detected [facility] This lab was ordered by [facility] and reported by [employer] ID Date Data Source [id number] 11/04/2020 12:00:00 AM EDT [facility] Name Value Range Interpretation Code Description Data Frances rce(s) Supporting Document(s) SARS coronavirus 2 Ag NEGATIVE [facility] This lab was ordered by [facility] and reported by [facility]. ID Date Data Source [id number] 10/25/2020 06:00:00 AM EDT [facility] Name Value Range Interpretation Code Description Data Frances rce(s) Supporting Document(s) SARS-CoV-2 (COVID-19) RNA [Presence] in Respiratory specimen by BALJEET with probe detection Not Detected [facility] This lab was ordered by [facility] and reported by [employer] ID Date Data Source [id number] 10/22/2020 08:40:00 AM EDT [facility] ([facility]) Name Value Range Interpretation Code Description Data Frances rce(s) Supporting Document(s) Creatinine For GFR 0.59 mg/dL 0.55-1.30 [facility] ([facility]) Blood Urea Nitrogen 22 mg/dL 7-18 [facility] ([facility]) Glucose, Fasting 121 mg/dL 70-100 [facility] ([facility]) Glomerular Filtration Rate Laboratory test result [facility] ([facility]) <content>Units are mL/min/1.73 m2</content>
<content></content>
<content>Chronic Kidney Disease Staging per NKF:</content>
<content></content>
<content>Stage I & II GFR >=60 Normal to Mildly Decreased</content>
<content>Stage III GFR 30- 59 Moderately Decreased</content>
<content>Stage IV GFR 15-29 Severely Decreased</content>
<content>Stage V GFR <15 Very Little GFR Left</content>
<content>ESRD GFR <15 on FUR FINISHER TAILOR</content>
<content></content> Sodium Level 140 meq/L 136-145 [facility] ([facility]) Chloride Level 109 meq/L 98-107 [facility] ([facility]) Potassium Serum 3.8 meq/L 3.5-5.1 [facility] ([facility]) Calcium Level 8.8 mg/dL 8.5-10.1 [facility] ([facility]) Carbon Dioxide Level 27 meq/L 21-32 [facility] ([facility]) Anion Gap 4 meq/L 8-16 [facility] ([facility]) Alt/SGPT 26 U/L 12-78 [facility] ([facility]) Ast/Sgot 9 U/L 7-37 [facility] ([facility]) Alkaline Phosphatase 70 U/L 45-117 [facility] ([facility]) Bilirubin,Total 0.4 mg/dL 0.2-1.0 [facility] ([facility]) Total Protein 7.7 GM/DL 6.4-8.2 [facility] ([facility]) Albumin/Globulin Ratio 0.9 1.2-2.2 [facility] Albumin 3.7 GM/DL 3.2-5.2 [facility] ID Date Data Source [id number] 10/22/2020 08:40:00 AM EDT [facility] ([facility]) Name Value Range Interpretation Code Description Data Frances rce(s) Supporting Document(s) White Blood Count 8.8 10 4.0-10.0 [facility] ([facility]) Red Blood Count 4.54 10 4.00-5.40 [facility] ([facility]) Hemoglobin 13.6 g/dL 12.0-15.5 [facility] Hematocrit 42.4 % 36.0-47.0 [facility] ([facility]) Mean Corpuscular Hemoglobin 30.0 pg 27.0-33.0 [facility] ([facility]) Mean Corpuscular Volume 93.4 fl 80.0-96.0 [facility] ([facility]) Red Cell Distribution Width 13.5 % 11.5-14.5 [facility] ([facility]) Platelet Count, Automated 280 10 150-450 [facility] ([facility]) Mean Corpuscular HGB Conc 32.1 g/dL 32.0-36.5 [facility] ([facility]) Neutrophils % 64.6 % 36.0-66.0 [facility] ([facility]) Lymph % 23.4 % 24.0-44.0 [facility] Eos % 2.5 % 0.0-3.0 [facility] ([facility]) Kerr % 7.7 % 2.0-8.0 [facility] ([facility]) Immature Granulocyte % 1.1 % 0-3.0 [facility] ([facility]) Nucleated Red Blood Cell % 0.0 % 0-0 [facility] ([facility]) Baso % 0.7 % 0.0-1.0 [facility] Lymph # 2.1 10 1.5-5.0 [facility] Neutrophils # 5.7 10 1.5-8.5 [facility] ([facility]) Kerr # 0.7 10 0.0-0.8 [facility] Baso # 0.1 10 0.0-0.2 [facility] Eos # 0.2 10 0.0-0.5 [facility] ID Date Data Source [id number] 10/12/2020 12:00:00 AM EDT [facility] Name Value Range Interpretation Code Description Data Frances rce(s) Supporting Document(s) SARS-CoV2 Rapid Antigen Negative [facility] This lab was ordered by [facility] and reported by [facility]. ID Date Data Source [id number] 10/07/2020 12:00:00 AM EDT [facility] Name Value Range Interpretation Code Description Data Frances rce(s) Supporting Document(s) SARS coronavirus 2 Ag NEGATIVE [facility] This lab was ordered by [facility] and reported by [facility]. ID Date Data Source [id number] 10/04/2020 07:00:00 AM EDT [facility] Name Value Range Interpretation Code Description Data Frances rce(s) Supporting Document(s) SARS coronavirus 2 RNA Not Detected [facility] This lab was ordered by [facility] and reported by [facility]. ID Date Data Source [id number] 10/01/2020 12:00:00 AM EDT [facility] Name Value Range Interpretation Code Description Data Fracnes rce(s) Supporting Document(s) SARS-CoV2 Rapid Antigen Negative [facility] This lab was ordered by [facility] and reported by [facility]. ID Date Data Source [id number] 09/27/2020 09:45:00 AM EDT [facility] ([facility]) Name Value Range Interpretation Code Description Data Frances rce(s) Supporting Document(s) Thyrotropin [Units/volume] in Serum or Plasma by Detec tion limit <= 0.05 mIU/L 1.87 uIU/mL 0.36-3.74 [facility] ([facility] ) ID Date Data Source [id number] 09/27/2020 09:45:00 AM EDT [facility] ([facility]) Name Value Range Interpretation Code Description Data Frances rce(s) Supporting Document(s) Triglyceride [Mass/volume] in Serum or Plasma 92 mg/dL 30-150 [facility] ([facility]) Cholesterol [Mass/volume] in Serum or Plasma 161 mg/dL 131-200 [facility] ([facility]) Cholesterol in HDL [Mass/volume] in Serum or Plasma 72 mg/dL 35-60 [facility] ([facility]) Cholesterol in LDL [Mass/volume] in Serum or Plasma by calcu lation 71 CALC 50-159 [facility] ([facility]) ID Date Data Source [id number] 09/27/2020 09:45:00 AM EDT [facility] ([facility] Name Value Range Interpretation Code Description Data Frances rce(s) Supporting Document(s) Glucose [Mass/volume] in Serum or Plasma 114 mg/dL 74-99 [facility] 100-125 mg/dL PRE-DIABETES/FASTING >126 mg/dL DIABETES/FASTING ID Date Data Source [id number] 09/27/2020 08:24:00 AM EDT [facility] Name Value Range Interpretation Code Description Data Frances rce(s) Supporting Document(s) SARS coronavirus 2 RNA Not Detected [facility] [place] This lab was ordered by [facility] and reported by [facility]. ID Date Data Source [id number] 09/23/2020 12:00:00 AM EDT [facility] Name Value Range Interpretation Code Description Data Frances rce(s) Supporting Document(s) SARS coronavirus 2 Ag NEGATIVE [facility] This lab was ordered by [facility] and reported by [facility]. ID Date Data Source [id number] 09/20/2020 08:00:00 AM EDT [facility] Name Value Range Interpretation Code Description Data Frances rce(s) Supporting Document(s) SARS coronavirus 2 RNA Not Detected [facility] [place] This lab was ordered by [facility] and reported by [facility]. ID Date Data Source PAP REQUEST FOR SERVICE 09/20/2020 12:00:00 AM EDT eCW1 ([facility]) Name Value Range Interpretation Code Description Data Frances rce(s) Supporting Document(s) PAP REQUEST FOR SERVICE eCW1 ( [facility]) ID Date Data Source [id number] 09/16/2020 12:00:00 AM EST [facility] Name Value Range Interpretation Code Description Data Frances rce(s) Supporting Document(s) SARS coronavirus 2 Ag NEGATIVE [facility] This lab was ordered by [facility] and reported by [facility]. ID Date Data Source [id number] 09/13/2020 10:32:00 AM EST [facility] Name Value Range Interpretation Code Description Data Frances rce(s) Supporting Document(s) SARS coronavirus 2 RNA Not Detected [facility] [place] This lab was ordered by [facility] and reported by [facility]. ID Date Data Source [id number] 09/09/2020 12:00:00 AM EST [facility] Name Value Range Interpretation Code Description Data Frances rce(s) Supporting Document(s) SARS coronavirus 2 Ag NEGATIVE [facility] This lab was ordered by [facility] and reported by [facility]. ID Date Data Source [id number] 09/06/2020 07:00:00 AM EST [facility] Name Value Range Interpretation Code Description Data Frances rce(s) Supporting Document(s) SARS coronavirus 2 RNA Not Detected [facility] [place] This lab was ordered by [facility] and reported by [facility]. ID Date Data Source [id number] 08/13/2020 11:30:47 AM EST [facility] Name Value Range Interpretation Code Description Data Frances rce(s) Supporting Document(s) Operative Note [facility] [id number] [facility] KpXppXDoTzBX[id number]+[id number] UpCY5TVvcC8FblqkaW5xfU1F+AvdTzbPMn4bCZQX2lJlh3puSPVfVV/oLESiLHKytkW/098JbL1YOYjR PtjjnpdZ9Y4g5fq/mkrxG99d/tREM58dd0r/w1NJLd TNg//0UK50Sjhqv4wqfGW0EbLhNDpv+V+QaER42FO+jjgbh1m9fyEbXNf01RP2a/+OryB9b/nYkgxZGA tvq6dPswV3BPDsIcXxwT7Bk39Wj+gWZ2T5nyZo1eD2/F3dMeD5LW7ulFtV0I2olm4glj8oYeTBWa0HW9 eyll0vGXYQnACXKAHNJUOgyVQWEoBkS54OvTxmdT6g [file] AgICAgICAgICAgICAgICAgICAgICAgICAgICAgICAg ICAgICAgICAgICAgICAgICAgICAgICAgICAgICAgICAgICAgDQogICAgICAgICAgICAgICAgICAgICAg ICAgICAgICAgICAgICAgICAgICAgICAgICAgICAgICAgICAgICAgICAgICAgICAgICAgICAgICAgICAg ICAgICAgICAgICAgICAgICAgDQogICAgICAgICAgIC AgICAgICAgICAgICAgICAgICAgICAgICAgICAgICAgICAgICAgICAgICAgICAgICAgICAgICAgICAgIC AgICAgICAgICAgICAgICAgICAgICAgICAgICAgDQogICAgICAgICAgICAgICAgICAgICAgICAgICAgIC AgICAgICAgICAgICAgICAgICAgICAgICAgICAgICAg ICAgICAgICAgICAgICAgICAgICAgICAgICAgICAgICAgICAgICAgDQogICAgICAgICAgICAgICAgICAg ICAgICAgICAgICAgICAgICAgICAgICAgICAgICAgICAgICAgICAgICAgICAgICAgICAgICAgICAgICAg ICAgICAgICAgICAgICAgICAgICAgDQogICAgICAgIC AgICAgICAgICAgICAgICAgICAgICAgICAgICAgICAgICAgICAgICAgICAgICAgICAgICAgICAgICAgIC AgICAgICAgICAgICAgICAgICAgICAgICAgICAgICAgDQogICAgICAgICAgICAgICAgICAgICAgICAgIC AgICAgICAgICAgICAgICAgICAgICAgICAgICAgICAg ICAgICAgICAgICAgICAgICAgICAgICAgICAgICAgICAgICAgICAgICAgDQogICAgICAgICAgICAgICAg ICAgICAgICAgICAgICAgICAgICAgICAgICAgICAgICAgICAgICAgICAgICAgICAgICAgICAgICAgICAg ICAgICAgICAgICAgICAgICAgICAgICAgDQogICAgIC AgICAgICAgICAgICAgICAgICAgICAgICAgICAgICAgICAgICAgICAgICAgICAgICAgICAgICAgICAgIC AgICAgICAgICAgICAgICAgICAgICAgICAgICAgICAgICAgDQogICAgICAgICAgICAgICAgICAgICAgIC AgICAgICAgICAgICAgICAgICAgICAgICAgICAgICAg WWSrYGFcABJhJHMbCFZgDBEtKLWbEBJtQFVbKBRiZOAdVDZtRXAjEOCjLIGgEWg4Z9uzCEWfOXGkMO0h IEi3Ry0+ACkYQzVfVOW0xhUrmP9FFL9ml3CpMVorBUPcf5UvNGe8RQ4DBJPcLUiySW3MPVujbt9UFIEz CBPltGQMm8neSlEgBAA8EOIhNbdkKA6AZXLiB9plpw MiSAGzEVQEJZinKKZWVTzxZXNYMP7GPoQfY0QeoQ56PBBGRw7+SRklyyRzLnbDZjWpXUJyq8RlIUq7LT 7IBBReQvrve6ZeLfSpLQDELEfiJZ6RBSR1VKNwCXRuVe1ZQUWkO926kmLdTB1OXd5STrInAN3ehg8SRx NoXZBtOysLIjl7UAkrMA8UbSRhUUpMxPEtDGDavnDz Zm66ZNBulCQAxIpgzWEheZ7pSZVjfCAtvXuwNJFxCJRjBZ7rOO4fCHChPJI6CoP8EGFGFS0JDXMjBPGn oAGeKWQlPOJZPJ2CBYjuTMZ6EIMjitTkbFFtSLmiCF2IPYXucyUlIqJtWXKDERw+Os0YWG6yy2EvUZuj MaIwBW4ayh6MNVoCGlJsF4L6lZXeJ6G3BPxnAl7CDO VpGWWyGAlmXNCEJKebQV1YQZ5oobO5TW0ZuDWkVZErPYAylOHwOIq9Z94wjQIqAPuqDD9ZXOZ+Chalino+Pg 8QYBDhKCCsHGFtMfXzPJONJiJnF1EoE3YZk4WqK9HfML15sUgbduYkIHfiYR0MCM2pFVUbKWSHPG1FkM MwhD6wbhEoJPLgFBTTHtQeK18pgXPwBVEvKHMcVVWv Kr8URAYvG3BdriKnnOlyloSvAQHdDGHSCR2TEVudioJduKSlhYtjUO98zMioYQ0NYr3PWiCjBD2fit5H dEKhIc8DKBSjDP0IAWUzUXOkSMFzDOR4DJRkGbLzLGvsYMCnGTGbJGD8EHJrZTDbLO6HZzYoWZXmAFWx SBzhSNHxYCPtyf4FTUMxMZVtVOAdPvChSXYnWQIwVM umEBHnQJJdISU6DUTjHGTqVZ9QVdSzQPVdSCY4JaqtLXHoXEIlkp8CXIEeHEGrUyx5IeDkUMXjZLKqWP ebMLVoBJB5MrOuUBWnNEZzLO5JGjRxDBLdHJz8SvEsDAKvOEKciw1KPTNbFTIzNKTfMAKoKRLgQHEgNI nfUTZdQFM7XbOhYKHiWYAeMH0VSqAoXVAqLLxoJSLs UQErWZLaib3FZULpHVEqACJ1WKGeXBEyZLLbNJeuVUThYBF8UJFnPCPbWCGuLB7UQkInQNDxHZD3JmLg GYYnPCKski9WOMZuZRIhXYonWpIdAOQwLHGoOMixPQKrRURzAOTtNLSyWFJgMB1FRwKzYPEpVCI7Ydfn ADBcVOQvyb2ODNOmOYLvYuW8DqSaIWBuLYOtSDjaTT IqOTOkSuN2HKKgFLMjLM2RYaMuQSFvYJD0KCkxFBFgUHKslo4KVJUfNPUyTYScSfYuJEHnSTDuNFhsYO FoFUZ4JmZ9BBJdHATmAB6MTuGvVSFoQYDnRrAaCQLjANDdbx5LgQHymCzonb3FIXyGNn7FgSbtOSF5EF duKv0lkYWdSuLiPQEQDz8FxkJpWOEoGCTFURgoETRq FAI4TfqiL6JwTPSnLgHfFqb5UyCeALkaAEZ5FxG1GXJxMvV5JeH8AbWhAlCxEXK2ZuA2GQRpWJWsYCT8 VPp6PET7JNA+MY7pVAz+Ih7Zu8MmrqZ6oiAoCYjmMQYdGC3PACCDV7HMCk== ID Date Data Source [id number] 08/05/2020 01:27:21 PM [facility] Hospital Name Value Range Interpretation Code Description Data Frances rce(s) Supporting Document(s) History and Physical [facility] EDNRFq9rPaTWYaTy30/FMGyoGBZna7HcPYneNJj7EHxnPSGbS3QtPGX3wV5eHDI0UGsAGnPhLnTeFWU7 lbm [file] VSK4EnT2YCQvSO5nYWKSAg3+JBefqXTgkGhtDSFMXgS9UraSUgEmOC4BWQr= ID Date Data Source [id number] 08/11/2020 01:04:00 PM EST [facility] ReportName: HERNANDEZ SALGUERORN: [id number] Number: [id number] Date: 08/05/2020 00:00Received Date: 08/06/2020 12:49Physician(s): JEREDTELILIANA,HOPE QUETELL,MIKALMOSpecimen(s) ReceivedA: Right breast scarB: Breast implant capsuleClinical HistoryHistory of breast cancer.DiagnosisA) SKIN, RIGHT BREAST, EXCISION: SKIN WITH SCAR. B) BREAST CAPSULE, RIGHT, EXCISION: CONGESTION, FIBROSIS AND MILDCHRONIC INFLAMMATION. Electronically Signed By Niels Breaux MD, Attending Pathologist :04:49Processed at [facility] Pathology Laboratory at [facility], [address] [place] [address]. [facility], [address] [place] [address]. Unless 'gross-only' is specified, the final diagnosis is based hal microscopic examination of manufacturer's representative sections of tissue.Gross DescriptionThe specimen is received in two parts.Part A is received in formalin labeled with the patient's name "Vane" and "right breast scar". It consists of a 6.0 x 0.7 x 0.2 cmunoriented lancaster-pink, finely granular skin ellipse which displays a 6.4 x0.1 cm central linear scar which comes to 0.1 cm of the nearest margin. No discrete lesions are appreciated. Refrigerator Crater sections aresubmitted in one cassette. Part B is received in formalin labeled with the patient's name "Vane" and "right breast capsule". It consists of three irregular,pink-purple, rubbery fibromembranous tissue fragments, 0.8 x 0.5 x 0.3 cmto 4.6 x 1.8 x 1.2 cm. The cut surfaces range from lancaster-pink, rubbery, andfibrous to yellow, soft, and fatty. No discrete lesions are appreciated. Refrigerator Crater sections are submitted in one cassette. CTC/pws This report may include one or more immunohistochemical stain results thatuse analyte specific reagents. All positive and negative controls havebeen reviewed by the attending pathologist and are satisfactory. The testswere d eveloped and their performance characteristics determined by [facility] Pathology department. They have not been cleared or approved by the USFood and Drug Administration. The FDA has determined that such clearanceor approval is not necessary. Name Value Range Interpretation Code Description Data Frances rce(s) Supporting Document(s) ID Date Data Source [id number] 08/02/2020 12:00:00 PM EST [facility] ([facility]) Name Value Range Interpretation Code Description Data Frances rce(s) Supporting Document(s) Coronavirus 2019 Nasopharygeal Laboratory [facility]) This nucleic acid amplification test was developed and its performance characteristics determined by [facility]. Nucleic acid amplification tests include RT- PCR and TMA. This test has not [...] section 564(b)(1) of the Act, 21 U.S.C. 360bbb-3(b) (1), unless the authorization is termina favian or revoked sooner. When diagnostic testing is [...] detected) result in this assay. Performed at: [facility] [address] [place], [place] [id number] Repeat Chief: Maribel Casas PhD, Phone: [phone] Not Detected ID Date Data Source [id number] 08/02/2020 12:00:00 PM EST [facility] Name Value Range Interpretation Code Description Data [facility] rce(s) Supporting Document(s) SARS coronavirus 2 RNA Not Detected [facility] [place] This lab was ordered by [facility] and reported by [facility]. ID Date Data Source [id number] 07/30/2020 08:37:00 AM EST [facility] ([facility], ) Name Value Range Interpretation Code Description Data Frances rce(s) Supporting Document(s) Surgical pathology study Laboratory [facility] ) FINAL DIAGNOSIS Cecum, polyp, biopsy: Fragments of tubular adenoma. 08/02/2020 - [address] scan, fistula, diverticulitis 07/30/2020 - 1344 GROSS DIAGNOSIS Received in formalin labeled "biopsy cecal polyps" and consists of multiple fragments of lancaster tissue measuring 0.7 x 0.5 x 0.3 cm. in aggregate. All in one. -SV 07/30/2020 - 1344 Signed JIA QUEVEDO MD 08/02/2020 1355 ID Date Data Source [id number] 07/25/2020 09:00:00 AM EST [facility] Name Value Range Interpretation Code Description Data [facility] rce(s) Supporting Document(s) SARS coronavirus 2 RNA Not Detected [facility] This lab was ordered by [facility] and reported by [facility]. ID Date Data Source [id number] 07/12/2020 10:12:00 AM EST [facility] ([facility]) Name Value Range Interpretation Code Description Data Frances rce(s) Supporting Document(s) Choriogonadotropin.beta subunit [Moles/volume] in Seru m or Plasma Laboratory test [facility] ([facility] ) GESTATIONAL AGE APPROXIMATE HCG RANGE (MIU/ML) [...] monitoring the treatment of cancer patients. Siemens [place] methodology. ID Date Data Source [id number] 07/12/2020 10:12:00 AM EST [facility] Name Value Range Interpretation Code Description Data Frances rce(s) Supporting Document(s) Appearance, Urine Laboratory test result [facility] Color, Urine Laboratory test result [facility]) Specific [place] Urine Auto 1.023 1.002-1.035 [facility] PH,Urine 5.0 units 5.0-9.0 [facility] ([facility]) Protein, Urine Auto Laboratory test result [facility] Glucose, Urine (Ua) Auto Laboratory test result [facility] Urobilinogen, Urine Auto 0.2 mg/dL 0.0-2.0 [facility] Ketone, Urine Auto Laboratory test result [facility]) Bilirubin, Urine Auto Laboratory test result [facility]) Leukocyte Esterase, Urine Auto Laboratory test result [facility] Nitrite, Urine Auto Laboratory test result [facility]) Blood, Urine Blood Laboratory test result [facility] WBC, Urine Auto 0 /HPF 0-3 [facility] ([facility]) RBC, Urine Auto 0 /HPF 0-3 [facility] ([facility]) Bacteria, Urine Auto Laboratory test result [facility] Hyaline Cast, Urine Auto 0 /LPF 0-1 [facility] ([facility]) Squamous Epithelial Cell Ur AU 0 /HPF 0-6 [facility] ([facility]) Amorphous Sediment Laboratory test result [facility] ID Date Data Source [id number] 07/12/2020 10:10:00 AM EST [facility] ([facility] Name Value Range Interpretation Code Description Data Frances rce(s) Supporting Document(s) Urea nitrogen [Mass/volume] in Serum or Plasma 14 mg/dL 7-18 [facility] ([facility]) Glucose [Mass/volume] in Serum or Plasma 109 mg/dL 74-99 [facility] ([facility]) 100-125 mg/dL PRE-DIABETES/FASTING >126 mg/dL DIABETES/FASTING Creatinine 0.6 mg/dL 0.6-1.3 [facility] ([facility]) Sodium [Moles/volume] in Serum or Plasma 139 meq/L 136-145 [facility] ([facility]) Potassium [Moles/volume] in Serum or Plasma 4.1 meq/L 3.5-5.1 [facility] ([facility]) Chloride [Moles/volume] in Serum or Plasma 103 meq/L 98-107 [facility] ([facility]) Carbon dioxide, total [Moles/volume] in Serum or Plasma 26 meq/L 21 -32 [facility] ([facility]) Calcium [Mass/volume] in Serum or Plasma 8.7 mg/dL 8.5-10.1 [facility] ([facility]) Alkaline phosphatase isoenzyme [Units/volume] in Serum or Pl asma 69 mg/dL 46-116 [facility] ([facility]) Aspartate aminotransferase [Enzymatic activity/volume] in Serum or Plasma 21 U/L 15-37 [facility] ([facility] ) Total Bilirubin 0.3 mg/dL 0.2-1.0 [facility] ([facility]) Alanine aminotransferase [Enzymatic activity/volume] in Seru m or Plasma 36 U/L 12-78 [facility] ([facility]) Proteinase 3 Ab [Units/volume] in Serum 7.1 g/dL 6.4-8.2 [facility] ([facility]) Albumin [Mass/volume] in Serum or Plasma 3.9 g/dL 3.4-5.0 [facility] ([facility]) A/G Ratio 1.22 CALC 1.00-1.90 [facility] ([facility]) Glomerular filtration rate/1.73 sq M pre dicted among non-blacks [Volume Rate/Area] in Serum or Plasma by Creatinine-based formula (MDRD) Laboratory test result [facility] ([facility] ) Glomerular filtration rate/1.73 sq M pre dicted among blacks [Volume Rate/Area] in Serum or Plasma by Creatinine-based formula (MDRD) Laboratory test result [facility] <content>CHRONIC KIDNEY DISEASE STAGING PER NKF</content>
<content></content>
<content>STAGE I & II GFR >= 60 NORMAL TO MILDLY DECREASED</content>
<content>STAGE III GFR 30-59 MODERATELY DECREASED</content>
<content>STAGE IV GFR 15-29 SEVERELY DECREASED</content>
<content>STAGE V GFR <15 VERY LITTLE GFR LEFT</content>
<content>ESRD GFR <15 ON FUR FINISHER TAILOR</content>
<content></content> ID Date Data Source [id number] 07/12/2020 10:10:00 AM EST [facility] Name Value Range Interpretation Code Description Data Frances rce(s) Supporting Document(s) Leukocytes [#/volume] in Blood by Automated count 6.3 x10*3/UL 4.1-10 .9 [facility] Erythrocytes [#/volume] in Blood by Automated count 4.91 x10*6/UL 4.2 0-6.30 [facility] Hemoglobin [Mass/volume] in Blood 14.5 g/dL 12.0-18.0 [facility] MCV 85.3 fL 80.0-97.0 [facility] ([facility]) Hematocrit [Volume Fraction] of Blood by Automated count 41.9 % 3 7.0-51.0 [facility]) MCHC 34.6 g/dL 31.0-38.0 [facility] MCH 29.5 pg 26.0-32.0 [facility] ([facility]) Platelets [#/volume] in Blood by Automated count 298 x10*3/UL 140-440 [facility] Erythrocyte distribution width [Ratio] by Automated count 14.2 % 11.6-13.7 [facility] ([facility]) MPV 9.5 FL 7.8-11.0 [facility] ([facility]) Mid % 6.1 % 1.7-9.3 [facility] ([facility]) Lymph % 24.6 % 10.0-58.5 [facility] ([facility]) Lymph # 1.5 x10*3/UL 0.6-4.1 [facility] ([facility]) Neut % 69.3 % 37.0-92.0 [facility] ([facility]) Neut # 4.3 x10*3/UL 2.0-7.8 [facility] ([facility]) Mid # 0.5 x10*3/UL 0.1-0.6 [facility] ([facility]) ID Date Data Source [id number] 05/24/2020 03:34:00 PM EST [facility] ([facility]) Name Value Range Interpretation Code Description Data Frances rce(s) Supporting Document(s) Blood Urea Nitrogen 13 mg/dL 7-18 [facility] ([facility]) Glucose, Fasting 94 mg/dL 70-100 [facility] ([facility]) Glomerular Filtration Rate Laboratory test [facility]) <content>Units are mL/min/1.73 m2</content>
<content></content>
<content>Chronic Kidney Disease Staging per NKF:</content>
<content></content>
<content>Stage I & II GFR >=60 Normal to Mildly Decreased</content>
<content>Stage III GFR 30- 59 Moderately Decreased</content>
<content>Stage IV GFR 15-29 Severely Decreased</content>
<content>Stage V GFR <15 Very Little GFR Left</content>
<content>ESRD GFR <15 on FUR FINISHER TAILOR</content>
<content></content> Creatinine For GFR 0.65 mg/dL 0.55-1.30 [facility] ([facility]) Potassium Serum 3.6 meq/L 3.5-5.1 [facility] ([facility]) Sodium Level 140 meq/L 136-145 [facility] ([facility]) Chloride Level 107 meq/L 98-107 [facility] ([facility]) Carbon Dioxide Level 27 meq/L 21-32 [facility] ([facility]) Anion Gap 6 meq/L 8-16 [facility] ([facility]) Calcium Level 9.1 mg/dL 8.5-10.1 [facility] ([facility]) Ast/Sgot 11 U/L 7-37 [facility] ([facility]) Alt/SGPT 17 U/L 12-78 [facility] ([facility]) Bilirubin,Total 0.3 mg/dL 0.2-1.0 [facility] ([facility]) Alkaline Phosphatase 58 U/L 45-117 [facility] ([facility]) Total Protein 7.5 GM/DL 6.4-8.2 [facility] ([facility]) Albumin 3.8 GM/DL 3.2-5.2 [facility] ([facility]) Albumin/Globulin Ratio 1.0 1.2-2.2 [facility] ([facility]) ID Date Data Source [id number] 05/24/2020 03:34:00 PM EST [facility] ([facility]) Name Value Range Interpretation Code Description Data Frances rce(s) Supporting Document(s) White Blood Count 6.9 10 4.0-10.0 [facility] ([facility]) Hemoglobin 12.0 g/dL 12.0-15.5 [facility] ([facility]) Red Blood Count 4.35 10 4.00-5.40 [facility] ([facility]) Mean Corpuscular Volume 88.0 fl 80.0-96.0 [facility] ([facility]) Hematocrit 38.3 % 36.0-47.0 [facility] Mean Corpuscular Hemoglobin 27.6 pg 27.0-33.0 CT [facility] ([facility]) Mean Corpuscular HGB Conc 31.3 g/dL 32.0-36.5 [facility] ([facility]) Red Cell Distribution Width 16.3 % 11.5-14.5 [facility] ([facility]) Platelet Count, Automated 447 10 150-450 [facility] ([facility]) Lymph % 26.9 % 24.0-44.0 [facility] Neutrophils % 60.1 % 36.0-66.0 [facility] ([facility]) Kerr % 10.1 % 0.0-5.0 [facility] Eos % 0.3 % 0.0-3.0 [facility] ([facility]) Baso % 0.9 % 0.0-1.0 [facility] ([facility]) Immature Granulocyte % 1.7 % 0-3.0 [facility] ([facility]) Nucleated Red Blood Cell % 0.0 % 0-0 [facility] ([facility]) Lymph # 1.9 10 1.5-5.0 [facility] ([facility]) Neutrophils # 4.2 10 1.5-8.5 [facility] ([facility]) Kerr # 0.7 10 0.0-0.8 [facility] ([facility]) Baso # 0.1 10 0.0-0.2 [facility] ([facility]) Eos # 0.0 10 0.0-0.5 [facility] ([facility]) ID Date Data Source [id number] 05/03/2020 10:24:00 AM EDT [facility] ([facility]) Name Value Range Interpretation Code Description Data Frances rce(s) Supporting Document(s) Glucose, Fasting 120 mg/dL 70-100 [facility] ([facility]) Creatinine For GFR 0.72 mg/dL 0.55-1.30 [facility] ([facility]) Blood Urea Nitrogen 16 mg/dL 7-18 [facility] ([facility]) Sodium Level 139 meq/L 136-145 [facility] ([facility]) Glomerular Filtration Rate Laboratory test result [facility] <content>Units are mL/min/1.73 m2</content>
<content></content>
<content>Chronic Kidney Disease Staging per NKF:</content>
<content></content>
<content>Stage I & II GFR >=60 Normal to Mildly Decreased</content>
<content>Stage III GFR 30- 59 Moderately Decreased</content>
<content>Stage IV GFR 15-29 Severely Decreased</content>
<content>Stage V GFR <15 Very Little GFR Left</content>
<content>ESRD GFR <15 on FUR FINISHER TAILOR</content>
<content></content> Chloride Level 106 meq/L 98-107 [facility] ([facility]) Potassium Serum 3.9 meq/L 3.5-5.1 [facility] ([facility]) Carbon Dioxide Level 24 meq/L 21-32 [facility] ([facility]) Anion Gap 9 meq/L 8-16 [facility] ([facility]) Calcium Level 9.1 mg/dL 8.5-10.1 [facility] ([facility]) Ast/Sgot 17 U/L 7-37 [facility] ([facility]) Alkaline Phosphatase 56 U/L 45-117 [facility] ([facility]) Alt/SGPT 25 U/L 12-78 [facility] ([facility]) Bilirubin,Total 0.3 mg/dL 0.2-1.0 [facility] ([facility]) Total Protein 7.7 GM/DL 6.4-8.2 [facility] ([facility]) Albumin/Globulin Ratio 0.8 1.2-2.2 [facility] ([facility]) Albumin 3.5 GM/DL 3.2-5.2 [facility] ([facility]) ID Date Data Source [id number] 05/03/2020 10:24:00 AM EDT [facility] ([facility]) Name Value Range Interpretation Code Description Data Frances rce(s) Supporting Document(s) White Blood Count 5.7 10 4.0-10.0 [facility] ([facility]) Red Blood Count 4.46 10 4.00-5.40 [facility] ([facility]) Hematocrit 39.4 % 36.0-47.0 [facility] Hemoglobin 12.2 g/dL 12.0-15.5 [facility] ([facility] Mean Corpuscular Volume 88.3 fl 80.0-96.0 [facility] ([facility]) Mean Corpuscular Hemoglobin 27.4 pg 27.0-33.0 [facility] ([facility]) Mean Corpuscular HGB Conc 31.0 g/dL 32.0-36.5 [facility] ([facility]) Red Cell Distribution Width 16.4 % 11.5-14.5 [facility] ([facility]) Platelet Count, Automated 405 10 150-450 [facility] ([facility]) Neutrophils % 54.8 % 36.0-66.0 [facility] ([facility]) Kerr % 8.9 % 0.0-5.0 [facility]) Eos % 2.1 % 0.0-3.0 [facility] Lymph % 31.5 % 24.0-44.0 [facility] Immature Granulocyte % 1.1 % 0-3.0 [facility] ([facility]) Baso % 1.6 % 0.0-1.0 [facility] ([facility]) Neutrophils # 3.1 10 1.5-8.5 [facility] ([facility]) Nucleated Red Blood Cell % 0.0 % 0-0 [facility] ([facility]) Kerr # 0.5 10 0.0-0.8 [facility]) Lymph # 1.8 10 1.5-5.0 [facility]) Eos # 0.1 10 0.0-0.5 [facility] ([facility] Baso # 0.1 10 0.0-0.2 [facility] ([facility]) ID Date Data Source [id number] 04/22/2020 12:45:00 PM EDT [facility] ([facility]) Name Value Range Interpretation Code Description Data Frances rce(s) Supporting Document(s) Coronavirus 2019 Nasopharygeal Laboratory test result [facility] ([facility]) This nucleic acid amplification test was developed and its performance characteristics determined by [facility]. Nucleic acid amplification tests include PCR and [...] detected) result in this assay. Performed at: [facility] [id number] Repeat Chief: Julia Garcia MD, Phone: [phone] Not Detected ID Date Data Source [id number] 04/22/2020 12:45:00 PM EDT [facility] Name Value Range Interpretation Code Description Data Frances rce(s) Supporting Document(s) SARS coronavirus 2 RNA [facility] This lab was ordered by [facility] and reported by [facility]. ID Date Data Source [id number] 04/05/2020 08:50:00 AM EDT [facility] ([facility]) Name Value Range Interpretation Code Description Data Frances rce(s) Supporting Document(s) Glucose, Fasting 137 mg/dL 70-100 [facility] ([facility]) Creatinine For GFR 0.70 mg/dL 0.55-1.30 [facility] ([facility]) Glomerular Filtration Rate Laboratory test result [facility] ([facility]) <content>Units are mL/min/1.73 m2</content>
<content></content>
<content>Chronic Kidney Disease Staging per [facility]:</content>
<content></content>
<content>Stage I & II GFR >=60 Normal to Mildly Decreased</content>
<content>Stage III GFR 30- 59 Moderately Decreased</content>
<content>Stage IV GFR 15-29 Severely Decreased</content>
<content>Stage V GFR <15 Very Little GFR Left</content>
<content>ESRD GFR <15 on FUR FINISHER TAILOR</content>
<content></content> Blood Urea Nitrogen 16 mg/dL 7-18 [facility] ([facility]) Sodium Level 139 meq/L 136-145 [facility] ([facility]) Chloride Level 109 meq/L 98-107 [facility] ([facility]) Potassium Serum 3.9 meq/L 3.5-5.1 [facility] ([facility]) Anion Gap 7 meq/L 8-16 [facility] ([facility] Calcium Level 8.8 mg/dL 8.5-10.1 [facility] ([facility]) Carbon Dioxide Level 23 meq/L 21-32 [facility] ([facility]) Ast/Sgot 12 U/L 7-37 [facility] ([facility]) Alkaline Phosphatase 63 U/L 45-117 [facility] ([facility]) Alt/SGPT 21 U/L 12-78 [facility] ([facility]) Bilirubin,Total 0.3 mg/dL 0.2-1.0 [facility] ([facility]) Total Protein 7.8 GM/DL 6.4-8.2 [facility] ([facility]) Albumin 3.4 GM/DL 3.2-5.2 [facility] ([facility]) Albumin/Globulin Ratio 0.8 1.2-2.2 [facility] ([facility]) ID Date Data Source [id number] 04/05/2020 08:50:00 AM EDT [facility] ([facility]) Name Value Range Interpretation Code Description Data Frances rce(s) Supporting Document(s) White Blood Count 5.4 10 4.0-10.0 [facility] ([facility]) Red Blood Count 4.52 10 4.00-5.40 [facility] ([facility]) Hemoglobin 12.7 g/dL 12.0-15.5 [facility] ([facility]) Mean Corpuscular Volume 88.5 fl 80.0-96.0 [facility] ([facility]) Hematocrit 40.0 % 36.0-47.0 [facility] ([facility]) Mean Corpuscular HGB Conc 31.8 g/dL 32.0-36.5 MEDE NT ([facility]) Red Cell Distribution Width 15.7 % 11.5-14.5 ME DENT ([facility]) Mean Corpuscular Hemoglobin 28.1 pg 27.0-33.0 ME DENT ([facility]) Lymph % 12.1 % 24.0-44.0 [facility] ([facility]) Neutrophils % 84.4 % 36.0-66.0 [facility] ([facility]) Platelet Count, Automated 329 10 150-450 MEDE NT ([facility]) Baso % 0.4 % 0.0-1.0 [facility] ([facility]) Eos % 0.0 % 0.0-3.0 [facility] ([facility]) Kerr % 2.2 % 0.0-5.0 [facility] ([facility]) Immature Granulocyte % 0.9 % 0-3.0 [facility] ([facility]) Nucleated Red Blood Cell % 0.0 % 0-0 MED ENT ([facility]) Neutrophils # 4.5 10 1.5-8.5 [facility] ([facility]) Kerr # 0.1 10 0.0-0.8 [facility] ([facility]) Lymph # 0.7 10 1.5-5.0 [facility] ([facility]) Eos # 0.0 10 0.0-0.5 [facility] ([facility]) Baso # 0.0 10 0.0-0.2 [facility] ([facility]) ID Date Data Source [id number] 03/29/2020 08:58:00 AM EDT [facility] ([facility]) Name Value Range Interpretation Code Description Data Frances rce(s) Supporting Document(s) Glucose, Fasting 104 mg/dL 70-100 [facility] ([facility]) Blood Urea Nitrogen 15 mg/dL 7-18 [facility] ([facility]) Sodium Level 140 meq/L 136-145 [facility] ([facility]) Creatinine For GFR 0.53 mg/dL 0.55-1.30 [facility] ([facility]) Glomerular Filtration Rate Laboratory test result [facility] ([facility]) <content>Units are mL/min/1.73 m2</content>
<content></content>
<content>Chronic Kidney Disease Staging per NKF:</content>
<content></content>
<content>Stage I & II GFR >=60 Normal to Mildly Decreased</content>
<content>Stage III GFR 30- 59 Moderately Decreased</content>
<content>Stage IV GFR 15-29 Severely Decreased</content>
<content>Stage V GFR <15 Very Little GFR Left</content>
<content>ESRD GFR <15 on FUR FINISHER TAILOR</content>
<content></content> Potassium Serum 3.7 meq/L 3.5-5.1 [facility] ([facility]) Chloride Level 108 meq/L 98-107 [facility] ([facility]) Carbon Dioxide Level 26 meq/L 21-32 [facility] ([facility]) Calcium Level 8.9 mg/dL 8.5-10.1 [facility] ([facility]) Anion Gap 6 meq/L 8-16 [facility] ([facility]) Alt/SGPT 19 U/L 12-78 [facility] ([facility]) Ast/Sgot 15 U/L 7-37 [facility] ([facility]) Alkaline Phosphatase 62 U/L 45-117 [facility] ([facility]) Total Protein 7.5 GM/DL 6.4-8.2 [facility] ([facility]) Bilirubin,Total 0.2 mg/dL 0.2-1.0 [facility] ([facility]) Albumin 3.1 GM/DL 3.2-5.2 [facility] ([facility]) Albumin/Globulin Ratio 0.7 1.2-2.2 [facility] ([facility]) ID Date Data Source [id number] 03/29/2020 08:58:00 AM EDT [facility] ([facility]) Name Value Range Interpretation Code Description Data Frances rce(s) Supporting Document(s) White Blood Count 8.4 10 4.0-10.0 [facility] ([facility]) Hemoglobin 11.7 g/dL 12.0-15.5 [facility] ([facility]) Red Blood Count 4.17 10 4.00-5.40 [facility] ([facility]) Mean Corpuscular Hemoglobin 28.1 pg 27.0-33.0 ME DENT ([facility]) Hematocrit 36.5 % 36.0-47.0 [facility] ([facility]) Mean Corpuscular Volume 87.5 fl 80.0-96.0 [facility] ([facility]) Red Cell Distribution Width 15.7 % 11.5-14.5 ME DENT ([facility]) Platelet Count, Automated 593 10 150-450 MEDE NT ([facility]) Mean Corpuscular HGB Conc 32.1 g/dL 32.0-36.5 MEDE NT ([facility]) Neutrophils % 64.5 % 36.0-66.0 [facility] ([facility]) Kerr % 10.2 % 0.0-5.0 [facility] Lymph % 20.9 % 24.0-44.0 [facility] Immature Granulocyte % 2.5 % 0-3.0 [facility] ([facility]) Baso % 1.1 % 0.0-1.0 [facility] ([facility]) Eos % 0.8 % 0.0-3.0 [facility] ([facility]) Neutrophils # 5.4 10 1.5-8.5 [facility] ([facility]) Lymph # 1.8 10 1.5-5.0 [facility] ([facility]) Nucleated Red Blood Cell % 0.0 % 0-0 MED ENT ([facility]) Baso # 0.1 10 0.0-0.2 [facility] Kerr # 0.9 10 0.0-0.8 [facility] ([facility]) Eos # 0.1 10 0.0-0.5 [facility] ([facility]) ID Date Data Source [id number] 03/25/2020 10:46:00 AM EDT [facility] ([facility]) Name Value Range Interpretation Code Description Data Frances rce(s) Supporting Document(s) Erythrocytes [#/volume] in Blood by Automated count 4.48 x10*6/UL 4.2 0-6.30 [facility] ([facility]) Leukocytes [#/volume] in Blood by Automated count 12.6 x10*3/UL 4.1-1 0.9 [facility] ([facility]) Hemoglobin [Mass/volume] in Blood 12.5 g/dL 12.0-18.0 [facility] ([facility]) Hematocrit [Volume Fraction] of Blood by Automated count 36.6 % 3 7.0-51.0 [facility] ([facility]) MCHC 34.3 g/dL 31.0-38.0 [facility] MCV 81.7 fL 80.0-97.0 [facility] ([facility]) MCH 28.1 pg 26.0-32.0 [facility] Platelets [#/volume] in Blood by Automated count 678 x10*3/UL 140-440 [facility] ([facility]) NOTE: RESULT VERIFIED. MPV 8.4 FL 7.8-11.0 [facility] ([facility]) Erythrocyte distribution width [Ratio] by Automated count 15.0 % 11.6-13.7 [facility] ([facility]) Mid % 5.1 % 1.7-9.3 [facility] ([facility]) Lymph % 13.6 % 10.0-58.5 [facility] ([facility]) Neut % 81.3 % 37.0-92.0 [facility] ([facility]) Lymph # 1.7 x10*3/UL 0.6-4.1 [facility] ([facility]) Mid # 0.6 x10*3/UL 0.1-0.6 [facility] ([facility]) Neut # 10.3 x10*3/UL 2.0-7.8 [facility] ([facility]) ID Date Data Source [id number] 03/25/2020 10:46:00 AM EDT [facility] ([facility]) Name Value Range Interpretation Code Description Data Frances rce(s) Supporting Document(s) Magnesium 2.2 mg/dL 1.8-2.4 [facility] ([facility]) ID Date Data Source [id number] 03/25/2020 10:46:00 AM EDT [facility] ([facility]) Name Value Range Interpretation Code Description Data Frances rce(s) Supporting Document(s) Creatinine 0.6 mg/dL 0.6-1.3 [facility] ([facility]) Urea nitrogen [Mass/volume] in Serum or Plasma 16 mg/dL 7-18 [facility] ([facility]) Glucose [Mass/volume] in Serum or Plasma 100 mg/dL 74-99 [facility] ([facility]) 100-125 mg/dL PRE-DIABETES/FASTING >126 mg/dL DIABETES/FASTING Potassium [Moles/volume] in Serum or Plasma 4.7 meq/L 3.5-5.1 [facility] ([facility]) Sodium [Moles/volume] in Serum or Plasma 140 meq/L 136-145 [facility] ([facility]) Carbon dioxide, total [Moles/volume] in Serum or Plasma 26 meq/L 21 -32 [facility] ([facility]) Chloride [Moles/volume] in Serum or Plasma 103 meq/L 98-107 [facility] ([facility]) Calcium [Mass/volume] in Serum or Plasma 9.1 mg/dL 8.5-10.1 [facility] Glomerular filtration rate/1.73 sq M pre dicted among blacks [Volume Rate/Area] in Serum or Plasma by Creatinine-based formula (MDRD) Laboratory [facility] <content>CHRONIC KIDNEY DISEASE STAGING PER NKF</content>
<content></content>
<content>STAGE I & II GFR >= 60 NORMAL TO MILDLY DECREASED</content>
<content>STAGE III GFR 30-59 MODERATELY DECREASED</content>
<content>STAGE IV GFR 15-29 SEVERELY DECREASED</content>
<content>STAGE V GFR <15 VERY LITTLE GFR LEFT</content>
<content>ESRD GFR <15 ON FUR FINISHER TAILOR</content>
<content></content> Glomerular filtration rate/1.73 sq M pre dicted among non-blacks [Volume Rate/Area] in Serum or Plasma by Creatinine-based formula (MDRD) Laboratory [facility] ID Date Data Source [id number] 03/11/2020 12:00:00 PM EDT [facility] Name Value Range Interpretation Code Description Data Frances rce(s) Supporting Document(s) Prothrombin Time 16.8 s 11.8-14.0 [facility] ([facility]) Inr 1.33 [facility] ([facility]) THERAPUTIC HUMAN INR VALUES INDICATIONS NORMAL RANGES PROPHYLAXIS/TREATMENT OF: VENOUS THROMBOSIS 2.0-3.0 PULMONARY EMBOLISM 2.0-3.0 PREVENTION OF SYSTEMIC EMBOLISM FROM: TISSUE HEART VALVES 2.0-3.0 ACUTE MYOCARDIAL INFARCTION 2.0-3.0 VALVULAR HEART DISEASE 2.0-3.0 ATRIAL FIBRILLATION 2.0-3.0 MECHANICAL VALVES(HIGH RISK) 2.5-3.5 RECURRENT MYOCARDIAL INFARCTION 2.5-3.5 ID Date Data Source [id number] 03/11/2020 12:00:00 PM EDT [facility] ([facility]) Name Value Range Interpretation Code Description Data Frances rce(s) Supporting Document(s) White Blood Count 12.8 10 4.0-10.0 [facility] ([facility]) Hemoglobin 11.8 g/dL 12.0-15.5 [facility] ([facility]) Red Blood Count 4.16 10 4.00-5.40 [facility] ([facility]) Mean Corpuscular Volume 87.0 fl 80.0-96.0 [facility] ([facility]) Hematocrit 36.2 % 36.0-47.0 [facility] ([facility]) Mean Corpuscular Hemoglobin 28.4 pg 27.0-33.0 ME DENT ([facility]) Red Cell Distribution Width 15.1 % 11.5-14.5 CT DENT ([facility]) Mean Corpuscular HGB Conc 32.6 g/dL 32.0-36.5 MEDE NT ([facility]) Platelet Count, Automated 277 10 150-450 MED[facility] NT ([facility]) Nucleated Red Blood Cell % 0.0 % 0-0 MED E[facility] ([facility]) ID Date Data Source [id number] 03/11/2020 12:00:00 PM EDT [facility] ([facility]) Name Value Range Interpretation Code Description Data Frances rce(s) Supporting Document(s) Lymphocytes 4 % 16-44 [facility] ([facility]) Neutrophils 96 % 28-66 [facility] ([facility]) Anisocytosis Laboratory test result MEDE NT ([facility]) ID Date Data Source [id number] 03/11/2020 12:00:00 PM EDT [facility] ([facility]) Name Value Range Interpretation Code Description Data Frances rce(s) Supporting Document(s) Platelets [#/volume] in Blood by Estimate Laboratory test result [facility] ([facility]) ID Date Data Source [id number] 03/11/2020 11:54:00 AM EDT [facility] ([facility]) Name Value Range Interpretation Code Description Data Frances rce(s) Supporting Document(s) Lactate [Mass/volume] in Serum or Plasma 1.4 mmol/L 0.4-2.0 [facility] ([facility]) Y/N query for Sepsis Lactate Rule: Y ID Date Data Source [id number] 03/11/2020 11:54:00 AM EDT [facility]) Name Value Range Interpretation Code Description Data Frances [facility](s) Supporting Document(s) CPK Creatine Phosphokinase 34 U/L 26-192 [facility] Troponin I Laboratory test result [facility]) <content>Troponin I Reference Interval f or Siemens [place] LOCI:</content>
<content></content>
<content>99th Percentile= 0.00-0.045 ng/ml</content>
<content></content>
<content>Risk Stratification:</content>
<content><= 0.10 ng/ml Decreased Risk for Adverse Clinical</content>
<content>Events.</content>
<content>0.10-1.50 ng/ml Increased Risk for Adverse Clinical</content>
<content>Events. Evaluation of additional</content>
<content>criterion and/or repeat testing in 2-6</content>
<content>hours is suggested to rule out myocardial</content>
<content>damage.</content>
<content>>= 1.50 ng/ml Indicative of Myocardial Injury.</content>
<content></content> CK-MB Value Mass Laboratory test [facility] ([facility]) MB/CK Relative Index 2.94 [facility] ([facility]) <content>DIAGNOSIS CRITERIA</content>
<content>MMB ng/ml Relative Index (RI)</content>
<content>NON-AMI < or = 5 N/A</content>
<content>LEE ZONE > 5 < or = 4</content>
<content>AMI > 5 > 4</content>
<content></content> ID Date Data Source [id number] 03/11/2020 11:54:00 AM EDT [facility] ([facility]) Name Value Range Interpretation Code Description Data Frances rce(s) Supporting Document(s) Ast/Sgot 9 U/L 7-37 [facility] ([facility]) Alt/SGPT 23 U/L 12-78 [facility] ([facility]) Alkaline Phosphatase 68 U/L 45-117 [facility] Bilirubin,Total 0.6 mg/dL 0.2-1.0 [facility] ([facility]) Bilirubin,Direct 0.1 mg/dL 0.0-0.2 [facility] ([facility]) Total Protein 6.8 GM/DL 6.4-8.2 [facility] ([facility]) Albumin/Globulin Ratio 0.8 1.2-2.2 [facility] ([facility]) Albumin 3.1 GM/DL 3.2-5.2 [facility] ([facility]) ID Date Data Source [id number] 03/11/2020 11:54:00 AM EDT [facility] Name Value Range Interpretation Code Description Data [facility](s) Supporting Document(s) Glucose, Fasting 113 mg/dL 70-100 [facility] ([facility]) Blood Urea Nitrogen 12 mg/dL 7-18 [facility] ([facility]) Creatinine For GFR 0.61 mg/dL 0.55-1.30 [facility] ([facility] Sodium Level 139 meq/L 136-145 [facility] ([facility]) Glomerular Filtration Rate [facility] <content>Units are mL/min/1.73 m2</content>
<content></content>
<content>Chronic Kidney Disease Staging per NKF:</content>
<content></content>
<content>Stage I & II GFR >=60 Normal to Mildly Decreased</content>
<content>Stage III GFR 30- 59 Moderately Decreased</content>
<content>Stage IV GFR 15-29 Severely Decreased</content>
<content>Stage V GFR <15 Very Little GFR Left</content>
<content>ESRD GFR <15 on FUR FINISHER TAILOR</content>
<content></content> Chloride Level 103 meq/L 98-107 [facility] ([facility]) Carbon Dioxide Level 28 meq/L 21-32 [facility] ([place] [facility]) Potassium Serum 3.5 meq/L 3.5-5.1 [facility] ([facility]) Calcium Level 8.9 mg/dL 8.5-10.1 [facility] ([facility]) Anion Gap 8 meq/L 8-16 [facility] ([facility]) ID Date Data Source [id number] 03/11/2020 11:54:00 AM EDT [facility] ([facility]) Name Value Range Interpretation Code Description Data Frances rce(s) Supporting Document(s) Lipoprotein lipase [Enzymatic activity/volume] in Serum or Plasm a 57 U/L 73-393 [facility] ([facility]) Procedure Social History Code Duration Value Status Description Data Source(s ) Smoking 03/30/2021 12:00:00 AM EDT Never Smoked Cigarettes com pleted Never Smoked Cigarettes [facility] ([facility] [employer] [facility]) Alcohol intake 01/27/2021 12:00:00 AM EDT Current drinker of al cohol (finding) completed Current drinker of alcohol (finding) [facility] Tobacco use and exposure 01/27/2021 12:00:00 AM EDT Never used co mpleted Never used [facility] Smoking 01/27/2021 12:00:00 AM EDT Never smoker completed Never s [facility] Smoking 12/10/2020 12:00:00 AM EDT Never Smoker completed Never S moker eCW1 ([facility]) Smoking 09/20/2020 12:00:00 AM EDT Never Smoker completed Never S moker eCW1 ([facility]) Smoking 09/20/2020 12:00:00 AM EDT Never Smoker completed Never S moker eCW1 ([facility]) Smoking 06/28/2020 12:00:00 AM EST Never Smoker completed Never S moker eCW1 ([facility]) Smoking 06/28/2020 12:00:00 AM EST Never Smoker completed Never S moker eCW1 ([facility]) Smoking 06/28/2020 12:00:00 AM EST Never Smoker completed Never S moker eCW1 ([facility]) Smoking 06/28/2020 12:00:00 AM EST Never Smoker completed Never S moker eCW1 ([facility]) Vital Signs ID Date Data Source UNK Name Value Range Interpretation Code Description Data Source(s) Diastolic blood pressure 60 mm[Hg] 60 mm[Hg] [facility] ([facility]) RT Arm Heart rate 92 /min 92 /min [facility] ([facility]) Body height 62.0 [in_i] 62.0 [in_i] [facility] ([facility]) 5'2" Body weight 183.00 [lb_av] 183.00 [lb_av] MEDEN T ([facility]) Body mass index (BMI) [Ratio] 33.5 kg/m2 33.5 k g/m2 [facility] ([facility]) Systolic blood pressure 114 mm[Hg] 114 mm[Hg] M EDENT ([facility]) RT Arm Body mass index (BMI) [Ratio] 33.7 kg/m2 33.7 k g/m2 [facility] ([facility] ) Body temperature 97.1 [degF] 97.1 [degF] [facility] ([facility] ) Body height 62 [in_i] 62 [in_i] [facility] ([facility] ) 5'2" Body weight 184.00 [lb_av] 184.00 [lb_av] MEDEN T ([facility] ) Body weight 189.00 [lb_av] 189.00 [lb_av] MEDEN T ([facility]) Systolic blood pressure 112 mm[Hg] 112 mm[Hg] M EDENT ([facility]) RT Arm Diastolic blood pressure 70 mm[Hg] 70 mm[Hg] [facility] ([facility]) RT Arm Heart rate 80 /min 80 /min [facility] ([facility]) Body height 62.0 [in_i] 62.0 [in_i] [facility] ([facility]) 5'2" Body mass index (BMI) [Ratio] 34.6 kg/m2 34.6 k g/m2 [facility] ([facility]) Respiratory rate 18 /min 18 /min eCW1 [facility] Diastolic blood pressure 84 mm[Hg] 84 mm[Hg] eCW1 ([facility]) Body weight 187 [lb_av] 187 [lb_av] eCW1 ([facility]) Body weight 84.82 kg 84.82 kg eCW1 ([facility]) Body height 61.75 [in_i] 61.75 [in_i] eCW1 ([facility]) Body mass index (BMI) [Ratio] 34.48 kg/m2 34.48 kg/m2 eCW1 ([facility]) Heart rate 69 /min 69 /min eCW1 ([facility]) Body temperature 97.3 [degF] 97.3 [degF] eCW1 ( [facility]) Systolic blood pressure 130 mm[Hg] 130 mm[Hg] e CW1 ([facility]) Diastolic blood pressure 70 mm[Hg] 70 mm[Hg] [facility] ([facility]) RT Arm Heart rate 60 /min 60 /min [facility] ([facility]) Systolic blood pressure 102 mm[Hg] 102 mm[Hg] M EDENT ([facility]) RT Arm Body height 62.0 [in_i] 62.0 [in_i] MED[facility] ([facility] 5'2" Body weight 180.50 [lb_av] 180.50 [lb_av] MEDEN T ([facility]) Body mass index (BMI) [Ratio] 33.0 kg/m2 33.0 k g/m2 [facility] ([facility]) Diastolic blood pressure 68 mm[Hg] 68 mm[Hg] MED[facility] ([facility], ) Systolic blood pressure 112 mm[Hg] 112 mm[Hg] M EDENT ([facility]) Body height 62 [in_i] 62 [in_i] MEDENT ([facility]) 5'2" Body surface area Derived from formula 1.84 m2 1.84 m2 MED[facility] ([facility]) Body weight 183.00 [lb_av] 183.00 [lb_av] MEDEN T ([facility]) Body mass index (BMI) [Ratio] 33.5 kg/m2 33.5 k g/m2 MED[facility] ([facility]) [place] body weight 110 [lb_av] 110 [lb_av] MEDEN T ([facility]) Body weight 83.009 kg 83.009 kg MEDENT ([facility]) Body weight 182 [lb_av] 182 [lb_av] eCW1 ([facility]) Body weight 82.55 kg 82.55 kg W1 (Critical [facility] hospital) Body height 61.75 [in_i] 61.75 [in_i] eCW1 ([facility]) Body mass index (BMI) [Ratio] 33.55 kg/m2 33.55 kg/m2 eCW1 ([facility]) Systolic blood pressure 108 mm[Hg] 108 mm[Hg] e CW1 ([facility]) Diastolic blood pressure 70 mm[Hg] 70 mm[Hg] eCW1 ([facility]) Systolic blood pressure 122 mm[Hg] 122 mm[Hg] M EDENT ([facility] [facility]) Diastolic blood pressure 72 mm[Hg] 72 mm[Hg] [facility] ([facility] [facility]) Body height 61.5 [in_i] 61.5 [in_i] [facility] ([facility]) 5'1.50" Body weight 181.00 [lb_av] 181.00 [lb_av] MEDEN T ([facility] [employer] [facility]) Body mass index (BMI) [Ratio] 33.6 kg/m2 33.6 k g/m2 [facility] ([facility] [facility]) Body surface area Derived from formula 1.82 m2 1.82 m2 [facility] ([facility] [employer] [facility]) Body height 62.0 [in_i] 62.0 [in_i] [facility] ([facility]) 5'2" Body weight 173.50 [lb_av] 173.50 [lb_av] MEDEN T ([facility]) Systolic blood pressure 110 mm[Hg] 110 mm[Hg] M EDENT ([facility]) RT Arm Diastolic blood pressure 72 mm[Hg] 72 mm[Hg] [facility] ([facility]) RT Arm Heart rate 76 /min 76 /min [facility] ([facility]) Oxygen saturation in Arterial blood by Pulse oximetry --post exerci se 93 % 93 % [facility] ([facility] [facility]) RM Air Body mass index (BMI) [Ratio] 31.7 kg/m2 31.7 k g/m2 [facility] ([facility]) Body surface area Derived from formula 1.79 m2 1.79 m2 [facility] Systolic blood pressure 118 mm[Hg] 118 mm[Hg] [facility] Diastolic blood pressure 64 mm[Hg] 64 mm[Hg] [facility] ([facility]) Body height 62 [in_i] 62 [in_i] [facility] ([facility]) 5'2" Body weight 171.00 [lb_av] 171.00 [lb_av] [facility] Body mass index (BMI) [Ratio] 31.3 kg/m2 31.3 k g/m2 [facility] ([facility]) [place] body weight 110 [lb_av] 110 [lb_av] MEDEN T ([facility]) Body weight 77.566 kg 77.566 kg [facility] ([facility]) Body weight 78.47 kg 78.47 kg W1 ([facility] hospital) Body height 61.75 [in_i] 61.75 [in_i] eCW1 ([facility]) Body weight 173 [lb_av] 173 [lb_av] eCW1 ([facility]) Body mass index (BMI) [Ratio] 31.9 kg/m2 31.9 k g/m2 [facility] ([facility]) Systolic blood pressure 133 mm[Hg] 133 mm[Hg] e CW1 ([facility]) Diastolic blood pressure 82 mm[Hg] 82 mm[Hg] eCW1 ([facility]) Body weight 170.2 [lb_av] 170.2 [lb_av] eCW1 ([facility]) Body weight 77.2 kg 77.2 kg eCW1 ([facility] hospital) Body height 61.75 [in_i] 61.75 [in_i] eCW1 ([facility]) Body mass index (BMI) [Ratio] 31.38 kg/m2 31.38 kg/m2 eCW1 ([facility]) Heart rate 68 /min 68 /min eCW1 ([facility]) Respiratory rate 18 /min 18 /min eCW1 ([facility] Body temperature 98.3 [degF] 98.3 [degF] eCW1 ( [facility]) Systolic blood pressure 122 mm[Hg] 122 mm[Hg] e CW1 ([facility]) Diastolic blood pressure 68 mm[Hg] 68 mm[Hg] eCW1 ([facility]) Body weight 170.2 [lb_av] 170.2 [lb_av] eCW1 ([facility]) Body weight 77.2 kg 77.2 kg eCW1 ([facility] access hospital) Body height 61.75 [in_i] 61.75 [in_i] eCW1 ([facility]) Body mass index (BMI) [Ratio] 31.38 kg/m2 31.38 kg/m2 eCW1 ([facility]) Heart rate 68 /min 68 /min eCW1 ([facility]) Respiratory rate 18 /min 18 /min eCW1 ([facility] Body temperature 98.3 [degF] 98.3 [degF] eCW1 ( [facility]) Systolic blood pressure 122 mm[Hg] 122 mm[Hg] e CW1 ([facility]) Diastolic blood pressure 68 mm[Hg] 68 mm[Hg] eCW1 ([facility]) Oxygen saturation in Arterial blood by Pulse oximetry --post exerci se 97 % 97 % [facility] ([facility]) RM Air Systolic blood pressure 116 mm[Hg] 116 mm[Hg] M EDENT ([facility]) RT Arm Diastolic blood pressure 74 mm[Hg] 74 mm[Hg] [facility] ([facility]) RT Arm Heart rate 80 /min 80 /min [facility] ([facility]) Body height 62.0 [in_i] 62.0 [in_i] [facility] ([facility]) 5'2" Body weight 170.00 [lb_av] 170.00 [lb_av] MEDEN T ([facility]) Oxygen saturation in Arterial blood by Pulse oximetry 97 % 97 % [facility] ([facility]) RM Air Body mass index (BMI) [Ratio] 31.1 kg/m2 31.1 k g/m2 [facility] ([facility]) Oxygen saturation in Arterial blood by Pulse oximetry --post exerci se 92 % 92 % [facility] ([facility]) RM Air Heart rate 116 /min 116 /min [facility] ([facility]) Body weight 169.12 [lb_av] 169.12 [lb_av] MEDEN T ([facility]) Systolic blood pressure 108 mm[Hg] 108 mm[Hg] M EDENT ([facility]) RT Arm Diastolic blood pressure 70 mm[Hg] 70 mm[Hg] [facility] ([facility]) RT Arm Body height 62.0 [in_i] 62.0 [in_i] [facility] 5'2" Body mass index (BMI) [Ratio] 30.9 kg/m2 30.9 k g/m2 [facility] ([facility]) ID Date Data Source [id number] 02/03/2021 12:30:31 PM [facility] Name Value Range Interpretation Code Description Data Source(s) WEIGHT RECORDED 181 lb 181 lb [facility] Body height Measured 62 in 62 in [facility] WEIGHT RECORDED 181 lb 181 lb [facility] Body height Measured 62 in 62 in [facility] ID Date Data Source [id number] 08/13/2020 11:30:47 AM [facility] Name Value Range Interpretation Code Description Data Source(s) WEIGHT RECORDED 168 lb 168 lb [facility] Body height Measured 62 in 62 in [facility] Patient Treatment Plan of Care Planned Activity Planned Date Details Description Data Source (s) fentaNYL (SUBLIMAZE) (PF) injection 25 mcg 01/27/2021 02:29:15 PM [facility] Losartan Potassium 25 MG Oral Tablet 12/20/2020 12:00:[address] [facility] anastrozole 1 MG Oral Tablet 07/26/2020 12:00:00 AM [facility] Metamucil 0.36 GM Oral Capsule (Psyllium) 06/08/2020 12:00:00 AM [facility]
[2021-05-09 05:17] LABS: RSV AMPLIFICATION NEGATIVE (NEGATIVE)
--- OUTSIDE RECORDS SUMMARY | 2021-05-09 07:14 | CCD ---
Author Author [facility] Organization [facility] Address Unknown Phone Unavailable Care Team Providers Care Journeyman Electrician Name Role Phone AMERICO THRASHER MD Unavailable [...] GARRICK CASTELAN Unavailable Unavailable CRAIG, L GARRICK CASTLEAN Unavailable Unavailable CRAIG, L GARRICK CASTELAN Unavailable [...] LORENE PA Unavailable Unavailable Blackwell, C Renita LONG LINE TEAMSTER Unavailable Unavailable Blackwell, C Renita LONG LINE TEAMSTER Unavailable Unavailable Blackwell, C Renita LONG LINE TEAMSTER Unavailable Unavailable Blackwell, C Renita LONG LINE TEAMSTER Unavailable Unavailable Blackwell, C Renita LONG LINE TEAMSTER Unavailable Unavailable Blackwell, C Renita LONG LINE TEAMSTER Unavailable Unavailable Blackwell, C Reniat LONG LINE TEAMSTER Unavailable Unavailable Blackwell, C Renita LONG LINE TEAMSTER Unavailable Unavailable Blackwell, C Renita LONG LINE TEAMSTER Unavailable Unavailable Blackwell, C Renita LONG LINE TEAMSTER Unavailable Unavailable Blackwell, C Renita LONG LINE TEAMSTER Unavailable Unavailable Blackwell, C Renita LONG LINE TEAMSTER Unavailable Unavailable Blackwell, C Renita LONG LINE TEAMSTER Unavailable Unavailable Blackwell, C Renita LONG LINE TEAMSTER Unavailable Unavailable Blackwell, C Renita LONG LINE TEAMSTER Unavailable Unavailable Blackwell, C Renita LONG LINE TEAMSTER Unavailable Unavailable Blackwell, C Renita LONG LINE TEAMSTER Unavailable Unavailable Blackwell, C Renita LONG LINE TEAMSTER Unavailable Unavailable Blackwell, C Renita LONG LINE TEAMSTER Unavailable Unavailable Blackwell, C Renita LONG LINE TEAMSTER Unavailable Unavailable Blackwell, C Renita LONG LINE TEAMSTER Unavailable Unavailable Blackwell, C Renita LONG LINE TEAMSTER Unavailable Unavailable Blackwell, C Renita LONG LINE TEAMSTER Unavailable Unavailable Blackwell, C Renita LONG LINE TEAMSTER Unavailable Unavailable Blackwell, C Renita LONG LINE TEAMSTER Unavailable Unavailable Blackwell, C Renita LONG LINE TEAMSTER Unavailable Unavailable Blackwell, C Renita LONG LINE TEAMSTER Unavailable Unavailable Blackwell, C Renita LONG LINE TEAMSTER Unavailable Unavailable Blackwell, C Renita LONG LINE TEAMSTER Unavailable Unavailable Blackwell, C Renita LONG LINE TEAMSTER Unavailable Unavailable FANNY, R PARVIZ Unavailable Unavailable Nicolasa Adams MD Unavailable Unavailable Nicolsaa Adams MD Unavailable Unavailable Nicolasa Adams MD [...] is protected by Article 27-F of the [facility] Public Health law. If you continue you may have access to information: Regarding HIV / AIDS; Provided by facilities licensed or operated by the [facility] Office of Mental Health; or Provided by the [facility] Office for People With Developmental Disabilities. If such information is present, then the following [facility] mandated warning applies: This information has [...] law may result in a fine or detention sentence or both. A general authorization for the release of medical or other information is NOT sufficient authorization for further disc losure. Allergies and Adverse Reactions Type Description Substance Reaction Status Data Source(s ) Drug Allergy NKDA NKDA [facility] ([facility]) Family History Family Member Name Family Member Gender Family Member Status Date o f Status Description Data Source(s) Unknown Male Problem [facility] ([facility]) () Encounters Encounter Providers Location Date Indications Data Source(s ) [facility]00 PM EDT [facility] ([facility] ) Outpatient Attender: AMERICO THRASHER MDReferrer: Arlyn jameson MD 04/04/2021 10:36:04 AM EDT [facility] Recurring Patient Attender: AMERICO THRASHER MDReferrer: Arlyn maldonado MD 04/04/2021 10:00:41 AM EDT [facility] Outpatient Attender: GARRICK [employer] lingo cleaner 11:00:00 AM EDT [facility] ([facility]PER[facility]) Outpatient Attender: LORENE GOMES Physical Therapy 03/23/2021 11:00:00 AM EDT [facility] ([facility]) Outpatient Attender: Hope Ramos MDAdmitter: Hope Ramos MD [id number] 01/27/2021 12:00:00 AM EDT - 01/27/2021 12:00:00 AM ED T S/P bilateral mastectomy [Z90.13] [facility] S/P bilateral mastectomy [Z90.13] Patient discharged. Outpatient Attender: Renita Blackwell LONG LINE TEAMSTER Attender: PARVIZ Horton: Hope Ramos MD [id number] 01/24/2021 12:00:00 AM EDT - 01/25/2021 12:00:00 AM EDT Contact with and (suspected) exposure to other viral communicable diseases [facility] Contact with and (suspected) exposure to other viral communicable diseases Outpatient Attender: Arlyn Hedrick 02:30:00 PM EDT [facility] ([facility] ) Outpatient [address] [facility] [facility] [id number] 12/10/2020 12:00:00 AM EDT eCW1 ([facility]) Outpatient Attender: Arlyn Hedrick 09:00:00 AM EDT [facility] ([facility] ) Outpatient Attender: VLADIMIR Richardson/Venancio/Ang el/Reindl 09/22/2020 09:10:00 AM EDT [facility] ([facility] Outpatient [address] [facility] [facility] [id number] 09/16/2020 12:00:00 AM EST eCW1 ([facility]) Outpatient Attender: GARRICK [employer] lingo cleaner 09/2020 01:00:00 PM EST MEDENT ([facility]IC MELT OPER[facility]) Outpatient Attender: Hope Ramos MDAdmitter: Hope Ramos MD [id number] 08/05/2020 12:00:00 AM EST - 08/05/2020 06:09:00 PM ES T Status post bilateral mastectomy [Z90.13] [facility] Status post bilateral mastectomy [Z90.13 ] Patient discharged. Outpatient Attender: Arlyn Hedrick 09:00:00 AM EST [facility] ([facility] ) Outpatient Attender: VLADIMIR Richardson/Venancio/Ang el/Reindl 07/05/2020 08:20:00 AM EST [facility] ([facility] [place] [address] [facility] [place] [address] 06/30/2020 12:00:00 AM EST eCW1 ([facility]) [place] [address] [facility] [address] 06/28/2020 12:00:00 AM EST eCW1 ([facility]) [place] [address] [facility] [address] 06/25/2020 12:00:00 AM EST eCW1 ([facility]) Outpatient Attender: Arlyn Hedrick 09:00:00 AM EST [facility] ([facility] ) Outpatient Attender: Arlyn Hedrick 10:00:00 AM EDT [facility] ([facility] ) [place] [address] [facility] [address] 03/11/2020 12:00:00 AM EDT eCW1 ([facility]) Immunizations Vaccine Date Status Description Data Source(s) COVID-19 VACCINE Moderna 11/01/2020 12:00:00 AM EDT completed [facility] Vaccine Series Complete: YESThis Data wa s Submitted to [facility] Via [employer]. COVID-19 VACCINE Moderna 10/04/2020 12:00:00 AM EDT completed [facility] Vaccine Series Complete: NOThis Data was Submitted to [facility] Via [employer]. Medications Medication Brand Name Start Date Product Form Dose Route Admi nistrative Instructions Pharmacy Instructions Status Indications Reaction Description Data Source(s) Naproxen 250 MG Oral Tablet Naproxen 04/06/2021 12:00:00 AM EDT ORAL active MEDENT ([facility]) tramadol hydrochloride 50 MG Oral Tablet tramadol (ULT VIRGILIO) tablet 50 mg tramadol (ULTRAM) tablet 50 mg 01/27/2021 04:15:00 PM EDT 50 mg Oral completed 50 mg, Oral, Once, On Bharti 01/27/21 at 1615, For 1 dose [facility] Medication administered onsite fentaNYL (SUBLIMAZE) (PF) injection 25 mcg 5029-1142-22 01/27/2021 02:29:15 PM EDT 25 ug Intravenous active 25 m cg, Intravenous, Every 5 min PRN, Moderate Pain (Pain Scale Score 4-6), Starting on Bharti 01/27/21 at 1429, For 10 doses, [facility] Medication administered onsite HYDROmorphone (DILAUDID) injection 0.5 mg 2044-7064-04 01/27/2021 02:29:15 PM EDT 0.5 mg Intravenous active 0.5 mg, Intravenous, Every 5 min PRN, Severe Pain (Pain Scale Score 7-10), Starting on Bharti 01/27/21 at 1429, For 4 doses, [facility] Medication administered onsite ondansetron (ZOFRAN) injection 4 mg [id number] 01/27/2021 02:29:1 5 PM EDT 4 mg Intravenous completed 4 mg, In travenous, Once PRN, Nausea, Vomiting, Starting on Bharti 01/27/21 at 1429, For 1 dose, [facility] Medication administered onsite Calcium Chloride 0.0014 MEQ/ML / Potassi um Chloride 0.004 MEQ/ML / Sodium Chloride 0.103 MEQ/ML / Sodium Lactate 0.028 MEQ/ML Injectable Solution lactated ringers infusion lactated ringers infusion 01/27/2021 06:45:00 AM EDT 100 mL/h Intravenous active at 100 m L/hr, Intravenous, Continuous, Starting on Bharti 01/27/21 at 0645, For 30 days, Pre-op [facility] Medication administered onsite vancomycin (VANCOCIN) in D5W infusion 1,000 mg/200 mL (premi x) 5284-3283-87 01/27/2021 06:45:00 AM EDT 1000 mg Intravenous completed 1,000 mg, Intravenous, Administer over 60 Minutes, Once, On Bharti 01/27/21 at 0645, For 1 dose
Intravenous antibiotics to be administered <60 minutes prior to procedure outbound call center representative to OR
Pre-op [facility] Medication administered onsite Losartan Potassium 25 MG Oral Tablet Losartan Potassium 12:00:00 AM EDT ORAL active [facility] ([facility]) Losartan Potassium 25 MG Oral Tablet Los freddy Potassium 25 MG Oral Tablet (COZAAR) Losartan Potassium 25 MG Oral Tablet (COZAAR) 12/21/19 12:00:00 AM EDT 12.5 mg active 12.5 mg [facility] anastrozole 1 MG Oral Tablet Anastrozole 1 MG Oral Tab let (ARIMIDEX) Anastrozole 1 MG Oral Tablet (ARIMIDEX) 07/26/2020 12:00:00 AM EST active [facility] magnesium citrate 58.2 MG/ML Oral Solution Magnesium Citrate 07/05/2020 12:00:00 AM EST completed MEDENT ([facility], ) POLYETHYLENE GLYCOL 3350 105 MG/ML / Pot assium Chloride 0.94884 MEQ/ML / Sodium Bicarbonate 0.017 MEQ/ML / Sodium Chloride 0.0479 MEQ/ML Oral Solution [GaviLyte-N] Gavilyte-N With Flavor Pack 07/05/2020 12:00:00 AM EST completed MEDENT ([facility], ) POLYETHYLENE GLYCOL 3350 142 MG/ML Oral Solution [Miralax] M iralax 07/05/2020 12:00:00 AM EST active M EDENT ([facility], ) Metamucil 0.36 GM Oral Capsule (Psyllium) [id number] 06/08/2020 12:00:00 AM EST active [facility] Metamucil 06/01/2020 12:00:00 AM EST complete d MEDENT ([facility]) Cefuroxime 500 MG Oral Tablet Cefuroxime Axetil 05/29/2020 12:00:00 A M EST ORAL completed [facility] Metronidazole 500 MG Oral Tablet Metronidazole 03/29/2020 12:00:00 AM EDT ORAL completed [facility] Probiotic Probiotic 03/22/2020 12:00:00 AM EDT ORAL act victoria MED[facility] ([facility]) Acetaminophen 250 MG / Aspirin 250 MG / Caffeine 65 MG Oral Tablet [Excedrin] Excedrin Migraine 03/19/2020 12:00:00 AM EDT activ e MED[facility] ([facility]) Acetaminophen 500 MG Oral Tablet Acetaminophen 03/19/2020 12:00:00 AM EDT ORAL active [facility] Ondansetron 8 MG Oral Tablet Ondansetron [...] type / Coverage type Policy ID Covered democrat ID Covered democrat's relationship to mittal Policy Mittal Plan Information Ghi FHP-(DO Not Use) Medigap Part B [id number] Self [id number] Ghi FHP-(DO Not Use) Medigap Part B [id number] Self [id number] Ghi FHP-(DO Not Use) Medigap Part B [id number] Self [id number] Ghi FHP-(DO Not Use) Medigap Part B [id number] Self [id number] Ghi FHP-(DO Not Use) Medigap Part B [id number] Self [id number] Ghi FHP-(DO Not Use) Medigap Part B [id number] Self [id number] Ghi FHP-(DO Not Use) Medigap Part B [id number] Self [id number] Ghi FHP-(DO Not Use) Medigap Part B [id number] Self [id number] BRENDAN [id number] SP [id number] EXCELLUS H [id number] Self [id number] MEDICAID M [id number] Self [id number] [facility] Trad/MX Commercial [id number] Self [id number] Blue Cross Blue Shield P [id number] SELF [id number] [facility] Trad/MX Medigap Part B [id number] Self [id number] EXCELLUS H [id number] Self [id number] [place] PPO 302/307 [id number] SP [id number] Blue Cross Blue Shield P [id number] SELF [id number] Blue Cross Blue Shield P [id number] SELF [id number] Blue Cross Blue Shield P [id number] SELF [id number] MEDICAID [id number] SP [id number] BLUE CROSS BLUE SHIELD -O/P [id number] 18 [id number] MEDICAID M [id number] S [id number] MEDICAID-O/P [id number] BLUE CROSS BLUE SHIELD -O/P [id number] MEDICAID -PHYSICIAN [id number] BLUE CROSS BLUE SHIELD -PHYSICIAN [id number] 18 [id number] MEDICAID - O/P EMERGENCY ROOM [id number] 18 [id number] [place]BS [place] PPO 302/307 [id number] SP [id number] [facility] [place] -[place] O [id number] 1 8 [id number] [place] PPO 302/307 [id number] SP [id number] SELF PAY UNAVAILABLE UNAVAILA BLE BCBS [place] PPO 302/307 [id number] SP [id number] SELF PAY ONLY [id number] SP [id number] BCBS OF [place] 306/806 [id number] SP [id number] EXCELLUS BCBS B [id number] S [id number] [place] [id number] SP [id number] MEDICAID [id number] SP [id number] BCBS [place] PPO 302/307 [id number] SP [id number] [facility] [id number] SP [id number] [facility] [id number] Self [id number] ANSI-Not a Secondary Insurance [id number] [place] [id number] Self [id number] EXCELLUS BCBS B [id number] S [id number] ANSI-Commercial [id number] [place]BS [place] PPO 302/307 [id number] SP [id number] [place]BS [place] PPO 302/307 [id number] SP [id number] [place] [id number] Self [id number] [place] [id number] Self [id number] Problems, Conditions, and Diagnoses Code Display Name Description Problem Type Effective Dates Data Source(s) HX: breast cancer [Z85.3] HX: breast cancer [Z85.3] Di agnosis 01/27/2021 06:32:00 AM EDT [facility] S/P bilateral mastectomy [Z90.13] S/P bilateral mastec rosangela [Z90.13] Diagnosis 01/27/2021 06:32:00 AM EDT [facility] Z20.828 Contact with and (suspected) exposure to other viral communicable diseases Contact with and (suspected) exposure to other viral communicable diseases Diagnosis 01/24/2021 01:45:56 PM EDT [facility] Status post bilateral mastectomy [Z90.13 ] Status post bilateral mastectomy [Z90.13] Diagnosis 08/05/2020 10:17:00 AM [facility] [id number] Pure hypercholesterolemia Pure hypercholesterolemia Pr oblem 03/24/2021 12:00:00 AM EDT MEDENT ([facility]) G47.33 Obstructive sleep apnea syndrome Obstructive sle ep apnea syndrome Problem 12/29/2020 12:00:00 AM EDT [facility] ([facility]) E78.00 Pure hypercholesterolemia Pure hypercholesterolemia Pr oblem 12/29/2020 12:00:00 AM EDT [facility] ([facility]) R73.09 Abnormal glucose level Abnormal glucose level Problem 12/29/2020 12:00:00 AM EDT [facility] ([facility]) N20.0 Kidney stone Kidney stone Problem 12/29/2020 12:00:00 A M EDT [facility] ([facility]) K57.92 Diverticulitis of colon Diverticulitis of colon Proble m 12/29/2020 12:00:00 AM EDT [facility] ([facility]) I10 Essential hypertension Essential hypertension Problem 12/29/2020 12:00:00 AM EDT [facility] ([facility]) I47.1 Paroxysmal supraventricular tachycardia Paroxysmal supraventricular tachycardia Problem 12/29/2020 12:00:00 AM EDT MEDENT ([facility]) Surgeries/Procedures Procedure Description Date Indications Data Source(s) OFFICE OUTPATIENT VISIT 15 MINUTES 04/06/2021 12:00:00 AM EDT [facility] ([facility]) OFFICE OUTPATIENT VISIT 10 MINUTES 03/30/2021 12:00:00 AM EDT MED[facility] ([facility] [facility]PER[facility]) RADIOLOGIC EXAM KNEE COMPLETE 4/MORE VIEWS 03/23/2021 12:00:00 AM EDT [facility] ([facility] RADEX FOOT COMPLETE MINIMUM 3 VIEWS 03/23/2021 12:00:0 0 AM EDT MED[facility] ([facility] ) OFFICE OUTPATIENT VISIT 25 MINUTES 03/23/2021 12:00:00 AM EDT [facility] ([facility] ) RADIOLOGIC EXAM KNEE COMPLETE 4/MORE VIEWS 03/23/2021 12:00:00 AM EDT [facility] ([facility] ) RADEX FOOT COMPLETE MINIMUM 3 VIEWS 03/23/2021 12:00:0 0 AM EDT [facility] ([facility] LAB RESULTS (OUTSIDE/HISTORICAL) <td>LAB RESULTS (OUTSIDE/HISTORICAL)</td><td></td><td>01/25/2021 12:50 PM EDT</td><td></td><td></td> 01/25/2021 12:50:50 PM EDT [facility] MISC SCANNED ORDER <td>MISC SCANNED ORDER</td>< td></td><td>01/25/2021 12:49 PM EDT</td><td></td><td></td> 01/25/2021 12:49:46 PM EDT [facility] OFFICE OUTPATIENT VISIT 25 MINUTES 12/29/2020 12:00:00 AM EDT MEDLEROY ([facility]) PERIODIC PREVENTIVE MED EST PATIENT 40-64YRS 12:00:00 AM EDT MEDLEROY ([facility]) Colonoscopy 07/30/2020 12:00:00 AM EST M DILLON ([facility]) Colonoscopy Flexible Proximal To Splenic Flexure W/Biopsy Si ngle/ 07/30/2020 12:00:00 AM EST [facility] ([facility]) OFFICE OUTPATIENT VISIT 25 MINUTES 07/29/2020 12:00:00 AM EST TABATHA ([facility]) ECG ROUTINE ECG W/LEAST 12 LDS W/I&R 06/24/2020 12:00: 00 AM EST MED[facility] ([facility]) Bone Mineral Density Test 06/08/2020 12:00:00 AM EST [facility] ([facility]) Results ID Date Data Source [id number] 04/26/2021 12:00:00 AM EDT [facility] Name Value Range Interpretation Code Description Data Frances rce(s) Supporting Document(s) SARS coronavirus 2 Ag NEGATIVE [facility] This lab was ordered by [facility] and reported by [facility]. ID Date Data Source [id number] 04/19/2021 01:25:00 PM EDT MEDENT ([facility]) Name Value Range Interpretation Code Description Data Frances rce(s) Supporting Document(s) Glucose, Fasting 85 mg/dL 70-100 [facility] ([facility]) Blood Urea Nitrogen 20 mg/dL 7-18 [facility] ([facility]) Creatinine For GFR 0.65 mg/dL 0.55-1.30 [facility] Sodium Level 141 meq/L 136-145 [facility] ([facility]) Glomerular Filtration Rate Laboratory test result [facility] <content>Units are mL/min/1.73 m2</content>
<content></content>
<content>Chronic Kidney Disease Staging per NKF:</content>
<content></content>
<content>Stage I & II GFR >=60 Normal to Mildly Decreased</content>
<content>Stage III GFR 30- 59 Moderately Decreased</content>
<content>Stage IV GFR 15-29 Severely Decreased</content>
<content>Stage V GFR <15 Very Little GFR Left</content>
<content>ESRD GFR <15 on CRIMINAL DEFENSE LAWYER</content>
<content></content> Carbon Dioxide Level 27 meq/L 21-32 MEDENT ([facility]) Potassium Serum 3.9 meq/L 3.5-5.1 MED[facility] ([facility]) Chloride Level 109 meq/L 98-107 [facility] ([facility]) Anion Gap 5 meq/L 8-16 [facility] ([facility] Calcium Level 8.6 mg/dL 8.5-10.1 [facility] ([facility]) ID Date Data Source [id number] 04/19/2021 01:25:00 PM EDT MEDENT ([facility]) Name Value Range Interpretation Code Description Data Frances rce(s) Supporting Document(s) Triglycerides Level 221 mg/dL [facility] Cholesterol Level 194 mg/dL MED[facility] ([facility]) HDL Cholesterol 49 mg/dL MED[facility] ([facility]) LDL Cholesterol 101 mg/dL [facility] ([facility]) Non-HDL-C 145 mg/dL [facility] ([facility] Cholesterol Risk Ratio 3.959 [facility] ([facility]) ID Date Data Source [id number] 04/18/2021 08:54:52 PM EDT [facility] PC[facility]: Zahra BragaDOB: 1970Provider: Bertram [...] since her symptoms are well relatively well [id number]-msablwo Tylenol and NSAIDs as needed for pain [...] provided Parts of this document dictated using Skout software in [employer] Plan<OBX.5.1><OBX.5.1.1> X-Ray I Ankle [...] deltoid Due: 18Apr2021; Last Updated By: Lizz Archer; 04/04/2021 10:34:32 AMPT Protocol : Evaluate and [...] rce(s) Supporting Document(s) ID Date Data Source [id number] 03/02/2021 12:10:50 PM EDT [facility] - CORE SPECIMEN DESCRIPTION BREAST RIGHTSPECIAL REQUESTS NONEGRAM STAIN FEW (<10/LPF) WHITE BLOOD CELLS NO BACTERIACULTURE RESULTS NO GROWTHREPORT STATUS FINAL 03/02/2021 Name Value Range Interpretation Code Description Data Frances rce(s) Supporting Document(s) ID Date Data Source [id number] 01/28/2021 07:33:05 PM EDT [facility] Name Value Range Interpretation Code Description Data Frances rce(s) Supporting Document(s) Operative Note [facility] [id number]/HOVemRUIku1ZnVGwfCCb8UKogPPLcR4OoFTQ4dQ6hMJK5RRnDGnPfGzSdYvFe [facility] [file] [id number]= ID Date Data Source [id number] 01/27/2021 05:00:15 PM EDT [facility] Name Value Range Interpretation Code Description Data Frances rce(s) Supporting Document(s) Progress Note [facility] [id number]/ZPEnvMOQxt8GoZLvsSJg0UMloYOOyR3LwSDT9kV0mQTV1XJvSViVfYlCrYcNo lbm [file] ICAgICAgICAgICAgICAgICAgICAgICAgICAgICAgICAgICAgICAgICAgICAgICAgICAgICAgICAgICAg RAGjABVjYDBfABByOZFxEH9GMMLjXPObJNFbPFSmQXRmNBPmEOVeELIaEHWsSIQtWJTeQYWxCTWoKQFr ICAgICAgICAgICAgICAgICAgICAgICAgICAgICAgIC NuTUOpXAQyKKLjQVKdMJIlFTOeVEGvWEDvUQ0EWVVsOGEnXPHmDFDyUKJmCPMzIRRuDJAkJRSlJUYsHH AgICAgICAgICAgICAgICAgICAgICAgICAgICAgICAgICAgICAgICAgICAgICAgICAgICAgICAgICAgIC AnVURiXOBbOI0AGNPjWXPaXGLeQOEwMXVmQBObWVNd ICAgICAgICAgICAgICAgICAgICAgICAgICAgICAgICAgICAgICAgICAgICAgICAgICAgICAgICAgICAg WWNaGJBrXCFeMYWfEPMsOEWtDZ7SOFDtWKQvZGVhLTOdNBSgJKJqPZFoEZPiFZMtZYUxKBLzDANjQGWg ICAgICAgICAgICAgICAgICAgICAgICAgICAgICAgIC GoZMQoFXSyNZFcEDBgQGJeXCWcUQTnWFUbHCBdVV5EPUNpUJUpSVGtVFXdWSZlMYUpWQDgSCRiTHLbUN AgICAgICAgICAgICAgICAgICAgICAgICAgICAgICAgICAgICAgICAgICAgICAgICAgICAgICAgICAgIC OvTJVjSJWaVFQtPS0FTGIyMQGxLXPqCEFmAAUtWQVn ICAgICAgICAgICAgICAgICAgICAgICAgICAgICAgICAgICAgICAgICAgICAgICAgICAgICAgICAgICAg YNDrJPHkPKTgETGvKXMkGEXtSVHpVD5KPTGpRVAuMXYuDBZkOOAiFOLcHTTyWCPnQTPwANGzPHSeCWZo ICAgICAgICAgICAgICAgICAgICAgICAgICAgICAgIC TlVSTqITJsNIIzOJEgQHFiYGOcTHPyHVBoZVUyINSlCE6HOVNcYEJxNCGqABShSMVaSWDgLVHaHUOlRH AgICAgICAgICAgICAgICAgICAgICAgICAgICAgICAgICAgICAgICAgICAgICAgICAgICAgICAgICAgIC XyDOBmLSWcJWBeWONzDG6CJUZuAUCuIPGbCILdWABk ICAgICAgICAgICAgICAgICAgICAgICAgICAgICAgICAgICAgICAgICAgICAgICAgICAgICAgICAgICAg PYKoAFTbJKYgLZFlOFDsUJAvVNXdSKIoQW8KGB74uPTrf6Z5QBEfJL0enlq/Ru5XCDexzoHhpJEzXE2B QoAvLO6nnn8IIvWqWV9kwv5IGRcQHnGyB7V3sMUcAK PyWKUDCkGsV14pCQrtUh93ZHhpCBGnLeSuDLx3Rd4SWlLbS6yiNDTaLpZ8CQEiLnHsMAqzNK3Wc4LcdO AxDQo+Yb7EGL6sl5YcLKepBGWcKH7qlz4RCLpSOeUgK3GechY6JAG0MBCzVl2ZROAaAKAwyPCaJZEfWI BLFpOiQ4BgdK18ZRXANq7+WNfzhwBoVmiTYxV2ZQIu g7OiBRk4FH4IOLKvWGr3rEYaDTScQ1Hkn9TcYf23TCBvRypfPVWwnAVeAIFaJm9xDHsaPg3qHNByLq7e Vg5nICBmZGR8LxO2VGDROH7ETGHySGYapPZuUAUkEXRISW9GYNtiCLN5ROSyqjSueEMvRYfuWH3IHBLa bnQgMTQgMCBSDQo+Rk0BOT0bg6PoKEiaLjFfOE6dqk 9MWDlWWkLoC7L7pLXiT6K0RRybTc4KTQQjBERsGYPjLTHLYZrnGH9VIZ7edcP0LC1OoIGlNNMcESXrqP QhYId4N73qiUEwILeeAA6PSMY+Chalino+Dw1UAJYbSKGnZWIoVvYbSBSBUbArH3YpY6HZz8ZlW8IsSE97jS kjocQvNSliZL7FTS3lCTWbZTGDDP2EjBLacX9mmiGe TDAhAIPPNdVgN41soMBkUULyVEUrENUuIq2YAXJzZ1TepxReqFkuoaEyRZXlKJWFJB0TLKgodlZyoXRj wUalID90uMbkWU9HAs8LNeVfOD0fcl7DlARxDq0XNVKyOa2EGBBmJVEtTCGlWVV5YEOpSxAmMFswTNCa VVRlPDV8CXLvLMGuPX7MRfApWRDdGFBoUgLyTQGvPI Cmce6QVBWoLHWpOzv7XUZiQTKfEHFjKRbkRBMlTFDsBKF4ZTQyJWSvJU8PHeRlLPYwMNFqCkEbQHFfXB Ugcj6PVVXnPSKdLlN2OCCwMHWkYFCcCIcvIKBwNGEpLdT1AXYcNTZmZE4RFsLtNIXaUZK5TaWeBXVxGJ Wbgd3GLRKnHMLcPizdQDQxMNRnXHTtZUqkCZPdNDV7 DxVqRCXzTWDxQL1SGnLkDSNkWPD6UfRlDNHbWFCrhh1ZXOCuLNPdBHH9QYBbVBLyJFVfRTjaMVIjHHC0 TMK6QRWvXESxKM2MFkCoPQLpZQS8MPUnHLTaJKWnfq2RNKTqTHXhZqw4QWGsMOAhJIGiEGypARHqYLN3 QKGkKLDrBRRvDG1DVzHyWIopFNILBnu0GIkdT7y4XV NvXl1EX6Nxe8HrRKVfEJIPKAraPG5uyjMoQVBbBn2PO8eJSoduI8C0TJG5BJFgFHN1EAl1PEJuWJXxAA vfQrCbKHV6RM3tABUpWzckThOlU2Y3LfqwHmn0HxVkLLFqSHF6ZLIeMeJcKxTeXZ8WWh4DRgA7IVE4wW YqPv3SVeW8Zn3GXBSFR9CUZg== ID Date Data Source [id number] 01/27/2021 08:52:01 AM EDT [facility] Name Value Range Interpretation Code Description Data [facility](s) Supporting Document(s) History and Physical [facility] IQCJHm7xUoSWHqSe66/TDVplCDXdf4KqYQiqPAl3CHatDERrG7CbQMX4eK1pLGO8JVeRIgEiCdAhHcLj lbm [file] PIQlD8GuZaheWPEfMdKxZe4xTXABVl0+IToowMDggUslXCLFWbF3SeSHJoYxXY7EJFe= ID Date Data Source [id number] 02/03/2021 12:30:00 PM EDT [facility] Surgical Pathology ReportName: HERNANDEZ SALGUERORN: [id number] Number: [id number] Date: 01/27/2021 00:00Received Date: 01/28/2021 08:51Physician(s): QUETELL,HOPE [...] E) BREAST IMPLANTS, RIGHT END LEFT, EXCISION: FISHER PURSE SEINE (GROSSONLY)F) SKIN, LEFT BREAST, EXCISION: SKIN WITH SCAR. G) SKIN, LEFT LATERAL BREAST, EXCISION: BENIGN SKIN WITH UNDERLYINGBENIGN ADIPOSE TISSUE. Electronically Signed By Niels Breaux MD, Attending Pathologist 112: 30:17Processed at [facility] Pathology Laboratory at [facility], [address] [place] [id number]. [facility], [address] [place] [address]. Unless 'gross-only' is specified, the final diagnosis is based hal microscopic examination of surgical device sales representative sections of tissue.Gross DescriptionThe specimen is [...] and lobulated. No mass lesions are seen. Promotional Marketing Agent sections are submitted in onecassette. Part C [...] lobulated and fatty. No masslesions are seen. Promotional Marketing Agent sections are submitted in one cassette. Part D is received in formalin and labeled with the patient's name,"Zahra Pan" and "left breast scar". It consists an elongateunoriented skin measuring 8.2 x 0.4 x 0.4 cm. The surface is wrinkledwith no lesions seen. The cut surfaces are dense and fibrous. Promotional Marketing Agent sections are submitted in one cassette. Part E is received in formalin and labeled with the patient's name,"Zahra Pan" and "bilateral breast implants". It consists of 2collapsed breast expanders each measuring 15 x 13 by up to 3 cm. Thesurfaces are smooth although slightly blood chest. Stamp zeng arepresent on each designating the following: "[place] [id number] 600 cc" and "[place] [id number] 550 cc". No soft tissue is present. Minimal clear fluidis present within each director of supply chain. Gross examination only.Part F is received in [...] lobulated and fatty. No masslesions are seen. Promotional Marketing Agent sections are submitted in one cassette. NMD\\This report may include one or more immunohistochemical stain results thatuse analyte specific reagents. All positive and negative controls havebeen reviewed by the attending pathologist and are satisfactory. The testswere developed and their performance characteristics determined by [facility] Pathology department. They have not been cleared or approved by the USFood and Drug Administration. The FDA has determined that such clearanceor approval is not necessary. Name Value Range Interpretation Code Description Data [facility] rce(s) Supporting Document(s) ID Date Data Source [id number] 01/24/2021 01:47:08 PM [facility] Name Value Range Interpretation Code Description Data [facility](s) Supporting Document(s) Progress Note [facility] [id number]/SFDdrRSXpe6TjEEzbRGt3GBrzWQPkF9JeTZD4qS3gPNH1RRlUYqGsHpEuBvW6 [facility] [file] [id number]== ID Date Data Source [id number] 01/24/2021 01:45:00 PM EDT [facility] Name Value Range Interpretation Code Description Data Frances rce(s) Supporting Document(s) SARS-CoV-2 RNA 2019 nCoV Real-Time RT-PCR: NOT DETECTED [facility] This lab was ordered by [facility] and reported by [facility]. 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 [facility] Patient has symptoms related to [facility] When did you start to experience these symptoms [Date and time] [Phen X] [facility] Patient was hospitalized because of this condition [facility] patient was admitted to ICU for [facility] Patient resides in a congregate care setting [facility] status [facility] ID Date Data Source [id number] 01/24/2021 08:06:00 AM EDT [facility] ([facility]) Name Value Range Interpretation Code Description Data Frances rce(s) Supporting Document(s) Blood Urea Nitrogen 17 mg/dL 7-18 [facility] ([facility]) Glucose, Fasting 109 mg/dL 70-100 [facility] ([facility]) Creatinine For GFR 0.65 mg/dL 0.55-1.30 [facility] ([facility]) Sodium Level 142 meq/L 136-145 [facility] ([facility]) Glomerular Filtration Rate Laboratory test result [facility] ([facility]) <content>Units are mL/min/1.73 m2</content>
<content></content>
<content>Chronic Kidney Disease Staging per NKF:</content>
<content></content>
<content>Stage I & II GFR >=60 Normal to Mildly Decreased</content>
<content>Stage III GFR 30- 59 Moderately Decreased</content>
<content>Stage IV GFR 15-29 Severely Decreased</content>
<content>Stage V GFR <15 Very Little GFR Left</content>
<content>ESRD GFR <15 on [employer]ER</content>
<content></content> Carbon Dioxide Level 23 meq/L 21-32 [facility] ([facility]) Potassium Serum 3.4 meq/L 3.5-5.1 [facility] ([facility]) Chloride Level 112 meq/L 98-107 [facility] ([facility]) Calcium Level 8.4 mg/dL 8.5-10.1 [facility] ([facility]) Anion Gap 7 meq/L 8-16 [facility]) Ast/Sgot 17 U/L 7-37 [facility] ([facility]) Alt/SGPT 37 U/L 12-78 [facility]) Bilirubin,Total 0.3 mg/dL 0.2-1.0 [facility] ([facility]) Alkaline Phosphatase 72 U/L 45-117 [facility] ([facility]) Total Protein 7.2 GM/DL 6.4-8.2 [facility] ([facility]) Albumin 3.6 GM/DL 3.2-5.2 [facility] ([facility]) Albumin/Globulin Ratio 1.0 1.2-2.2 [facility] ([facility]) ID Date Data Source [id number] 01/24/2021 08:06:00 AM EDT [facility] ([facility]) Name Value Range Interpretation Code Description Data Frances rce(s) Supporting Document(s) Red Blood Count 4.61 10 4.00-5.40 [facility] ([facility]) White Blood Count 6.7 10 4.0-10.0 [facility] ([facility]) Hematocrit 41.2 % 36.0-47.0 [facility] Hemoglobin 13.6 g/dL 12.0-15.5 [facility] Mean Corpuscular Hemoglobin 29.5 pg 27.0-33.0 [facility] ([facility]) Mean Corpuscular Volume 89.4 fl 80.0-96.0 [facility] ([facility]) Mean Corpuscular HGB Conc 33.0 g/dL 32.0-36.5 [facility] ([facility]) Red Cell Distribution Width 12.8 % 11.5-14.5 [facility] ([facility]) Platelet Count, Automated 250 10 150-450 [facility] ([facility]) Neutrophils % 55.6 % 36.0-66.0 [facility] Lymph % 32.4 % 24.0-44.0 [facility]) Eos % 2.5 % 0.0-3.0 [facility]) [place] % 8.5 % 2.0-8.0 [facility]) Immature Granulocyte % 0.4 % 0-3.0 [facility] ([facility]) Baso % 0.6 % 0.0-1.0 [facility]) Nucleated Red Blood Cell % 0.0 % 0-0 [facility] ([facility]) Neutrophils # 3.7 10 1.5-8.5 [facility] [place] # 0.6 10 0.0-0.8 [facility]) Lymph # 2.2 10 1.5-5.0 [facility]) Eos # 0.2 10 0.0-0.5 [facility]) Baso # 0.0 10 0.0-0.2 [facility]) ID Date Data Source [id number] 01/18/2021 12:50:00 PM EDT [facility] Name Value Range Interpretation Code Description Data Frances rce(s) Supporting Document(s) Color, Urine Laboratory test result [facility] ([facility]) Appearance, Urine Laboratory test result [facility] PH,Urine 5.0 units 5.0-9.0 [facility]) Specific [place] Urine Auto 1.015 1.002-1.035 [facility] Protein, Urine Auto Laboratory test result [facility] Ketone, Urine Auto Laboratory test result [facility] ([facility]) Glucose, Urine (Ua) Auto Laboratory test result [facility] Urobilinogen, Urine Auto 0.2 mg/dL 0.0-2.0 [facility] Bilirubin, Urine Auto Laboratory test result [facility] Nitrite, Urine Auto Laboratory test result [facility] Blood, Urine Blood Laboratory test result [facility] Leukocyte Esterase, Urine Auto Laboratory test result [facility] RBC, Urine Auto 0 /HPF 0-3 [facility] ([facility]) Bacteria, Urine Auto Laboratory test result [facility] WBC, Urine Auto 1 /HPF 0-3 [facility] ([facility]) Hyaline Cast, Urine Auto 0 /LPF 0-1 [facility] Squamous Epithelial Cell Ur AU 0 /HPF 0-6 [facility] ID Date Data Source [id number] 01/18/2021 12:47:00 PM EDT [facility] ([facility]) Name Value Range Interpretation Code Description Data Frances rce(s) Supporting Document(s) HCG Serum Qualitative Laboratory test result [facility] Actin IgG Ab [Units/volume] in Serum or Plasma 5 units 0-19 [facility] Negative 0 - 19 Weak positive 20 - 30 Moderate to strong positive >30 . Actin Antibodies are found in 52-85% of patients with autoimmune hepatitis or chronic active hepatitis and in 22% of patients with primary biliary cirrhosis. Performed at: RN - [facility] [address] [id number] Glass Inserter: Julia Garcia MD, Phone: [phone] ID Date Data Source [id number] 01/18/2021 12:46:00 PM EDT [facility] ([facility]) Name Value Range Interpretation Code Description Data Frances rce(s) Supporting Document(s) White Blood Count 6.7 10 4.0-10.0 [facility] ([facility]) Red Blood Count 4.77 10 4.00-5.40 [facility] ([facility]) Hemoglobin 14.3 g/dL 12.0-15.5 [facility] Hematocrit 43.2 % 36.0-47.0 [facility]) Mean Corpuscular Volume 90.6 fl 80.0-96.0 [facility] ([facility]) Mean Corpuscular Hemoglobin 30.0 pg 27.0-33.0 [place] [facility] ([facility]) Mean Corpuscular HGB Conc 33.1 g/dL 32.0-36.5 [facility] ([facility]) Neutrophils % 57.4 % 36.0-66.0 [facility] ([facility]) Platelet Count, Automated 267 10 150-450 [facility] ([facility]) Red Cell Distribution Width 12.7 % 11.5-14.5 [facility] ([facility]) Lymph % 29.9 % 24.0-44.0 [facility]) Eos % 2.0 % 0.0-3.0 [facility]) [place] % 8.7 % 2.0-8.0 [facility]) Immature Granulocyte % 1.1 % 0-3.0 [facility] ([facility]) Baso % 0.9 % 0.0-1.0 [facility]) Nucleated Red Blood Cell % 0.0 % 0-0 [facility] ([facility]) Lymph # 2.0 10 1.5-5.0 [facility]) Neutrophils # 3.8 10 1.5-8.5 [facility] ([facility]) Baso # 0.1 10 0.0-0.2 [facility]) Eos # 0.1 10 0.0-0.5 [facility]) [place] # 0.6 10 0.0-0.8 [facility] ID Date Data Source [id number] 01/07/2021 09:04:40 AM EDT [facility] - CORE SPECIMEN DESCRIPTION NASALSPECIAL REQUESTS NONECULTURE RESULTS NO METHICILLIN RESISTANT STAPH AUREUS ISOLATED.REPORT STATUS FINAL 01/07/2021 Name Value Range Interpretation Code Description Data Frances rce(s) Supporting Document(s) ID Date Data Source [id number] 12/30/2020 12:00:00 AM EDT [facility] Name Value Range Interpretation Code Description Data Frances rce(s) Supporting Document(s) SARS coronavirus 2 Ag NEGATIVE [facility] This lab was ordered by [facility] and reported by [facility]. ID Date Data Source [id number] 12/28/2020 08:47:00 AM EDT [facility] ([facility]) Name Value Range Interpretation Code Description Data Frances rce(s) Supporting Document(s) Thyroxine (T4) free [Mass/volume] in Serum or Plasma 0.83 ng/dL 0.76- 1.46 [facility] ([facility]) ID Date Data Source [id number] 12/28/2020 08:47:00 AM EDT [facility] ([facility]) Name Value Range Interpretation Code Description Data Frances rce(s) Supporting Document(s) Thyrotropin [Units/volume] in Serum or Plasma by Detec tion limit <= 0.05 mIU/L 4.95 uIU/mL 0.36-3.74 [facility] ([facility] ) ID Date Data Source [id number] 12/28/2020 08:47:00 AM EDT [facility] ([facility]) Name Value Range Interpretation Code Description Data Frances rce(s) Supporting Document(s) Glucose [Mass/volume] in Serum or Plasma 113 mg/dL 74-99 [facility] ([facility]) 100-125 mg/dL PRE-DIABETES/FASTING >126 mg/dL DIABETES/FASTING Creatinine 1.0 mg/dL 0.6-1.3 [facility] ([facility]) Urea nitrogen [Mass/volume] in Serum or Plasma 22 mg/dL 7-18 [facility] ([facility]) Sodium [Moles/volume] in Serum or Plasma 139 meq/L 136-145 [facility] ([facility]) Potassium [Moles/volume] in Serum or Plasma 4.2 meq/L 3.5-5.1 [facility] ([facility]) Chloride [Moles/volume] in Serum or Plasma 104 meq/L 98-107 [facility] ([facility]) Calcium [Mass/volume] in Serum or Plasma 8.8 mg/dL 8.5-10.1 [facility] ([facility]) Carbon dioxide, total [Moles/volume] in Serum or Plasma 24 meq/L 21 -32 [facility] Glomerular filtration rate/1.73 sq M pre dicted among blacks [Volume Rate/Area] in Serum or Plasma by Creatinine-based formula (MDRD) Laboratory test result [facility] <content>CHRONIC KIDNEY DISEASE STAGING PER NKF</content>
<content></content>
<content>STAGE I & II GFR >= 60 NORMAL TO MILDLY DECREASED</content>
<content>STAGE III GFR 30-59 MODERATELY DECREASED</content>
<content>STAGE IV GFR 15-29 SEVERELY DECREASED</content>
<content>STAGE V GFR <15 VERY LITTLE GFR LEFT</content>
<content>ESRD GFR <15 ON [employer] LAW[employer]ER</content>
<content></content> Glomerular filtration rate/1.73 sq M pre dicted among non-blacks [Volume Rate/Area] in Serum or Plasma by Creatinine-based formula (MDRD) 58 mL/min [facility] ID Date Data Source [id number] 12/28/2020 08:47:00 AM EDT [facility] ([facility]) Name Value Range Interpretation Code Description Data Frances rce(s) Supporting Document(s) Cholesterol [Mass/volume] in Serum or Plasma 203 mg/dL 131-200 [facility] ([facility]) Triglyceride [Mass/volume] in Serum or Plasma 390 mg/dL 30-150 [facility] ([facility]) Cholesterol in LDL [Mass/volume] in Serum or Plasma by calcu lation 81 CALC 50-159 [facility] ([facility]) Cholesterol in HDL [Mass/volume] in Serum or Plasma 44 mg/dL 35-60 [facility] ([facility]) ID Date Data Source [id number] 12/28/2020 08:47:00 AM EDT [facility] ([facility]) Name Value Range Interpretation Code Description Data Frances rce(s) Supporting Document(s) Glucose [Mass/volume] in Serum or Plasma 112 mg/dL 74-99 [facility] ([facility]) 100-125 mg/dL PRE-DIABETES/FASTING >126 mg/dL DIABETES/FASTING ID Date Data Source [id number] 12/21/2020 12:00:00 AM EDT [facility] Name Value Range Interpretation Code Description Data Frances rce(s) Supporting Document(s) SARS-CoV2 Rapid Antigen Negative [facility] This lab was ordered by [facility] and reported by [facility]. ID Date Data Source [id number] 12/13/2020 12:00:00 AM EDT [facility] Name Value Range Interpretation Code Description Data Frances rce(s) Supporting Document(s) SARS coronavirus 2 Ag NEGATIVE [facility] This lab was ordered by [facility] and reported by [facility]. ID Date Data Source [id number] 12/07/2020 12:00:00 AM EDT [facility] Name Value Range Interpretation Code Description Data Frances rce(s) Supporting Document(s) SARS coronavirus 2 Ag NEGATIVE [facility] This lab was ordered by [facility] and reported by [facility]. ID Date Data Source [id number] 12/02/2020 12:00:00 AM EDT [facility] Name Value Range Interpretation Code Description Data Frances rce(s) Supporting Document(s) SARS coronavirus 2 Ag NEGATIVE [facility] This lab was ordered by [facility] and reported by [facility]. ID Date Data Source [id number] 11/15/2020 12:26:00 PM EDT [facility] Name Value Range Interpretation Code Description Data Frances rce(s) Supporting Document(s) SARS-CoV-2 (COVID-19) RNA [Presence] in Respiratory specimen by BALJEET with probe detection Not Detected [facility] This lab was ordered by [facility] and reported by [employer] ID Date Data Source [id number] 11/08/2020 03:19:00 PM EDT [facility] Name Value Range Interpretation Code Description Data Frances rce(s) Supporting Document(s) SARS-CoV-2 (COVID-19) RNA [Presence] in Respiratory specimen by BALJEET with probe detection Not Detected [facility] This lab was ordered by [facility] and reported by [employer] ID Date Data Source [id number] 11/04/2020 12:00:00 AM EDT [facility] Name Value Range Interpretation Code Description Data Frances rce(s) Supporting Document(s) SARS coronavirus 2 Ag NEGATIVE [facility] This lab was ordered by [facility] and reported by [facility]. ID Date Data Source [id number] 10/25/2020 06:00:00 AM EDT [facility] Name Value Range Interpretation Code Description Data Frances rce(s) Supporting Document(s) SARS-CoV-2 (COVID-19) RNA [Presence] in Respiratory specimen by BALJEET with probe detection Not Detected [facility] This lab was ordered by [facility] and reported by [employer] ID Date Data Source [id number] 10/22/2020 08:40:00 AM EDT [facility] ([facility]) Name Value Range Interpretation Code Description Data Frances rce(s) Supporting Document(s) Creatinine For GFR 0.59 mg/dL 0.55-1.30 [facility] ([facility]) Blood Urea Nitrogen 22 mg/dL 7-18 [facility] ([facility]) Glucose, Fasting 121 mg/dL 70-100 [facility] ([facility]) Glomerular Filtration Rate Laboratory test result [facility] ([facility]) <content>Units are mL/min/1.73 m2</content>
<content></content>
<content>Chronic Kidney Disease Staging per NKF:</content>
<content></content>
<content>Stage I & II GFR >=60 Normal to Mildly Decreased</content>
<content>Stage III GFR 30- 59 Moderately Decreased</content>
<content>Stage IV GFR 15-29 Severely Decreased</content>
<content>Stage V GFR <15 Very Little GFR Left</content>
<content>ESRD GFR <15 on [employer]</content>
<content></content> Sodium Level 140 meq/L 136-145 [facility] ([facility]) Chloride Level 109 meq/L 98-107 [facility] ([facility]) Potassium Serum 3.8 meq/L 3.5-5.1 [facility] ([facility]) Calcium Level 8.8 mg/dL 8.5-10.1 [facility] ([facility]) Carbon Dioxide Level 27 meq/L 21-32 [facility] ([facility]) Anion Gap 4 meq/L 8-16 [facility]) Alt/SGPT 26 U/L 12-78 [facility]) Ast/Sgot 9 U/L 7-37 [facility]) Alkaline Phosphatase 70 U/L 45-117 [facility] ([facility]) Bilirubin,Total 0.4 mg/dL 0.2-1.0 [facility] ([facility]) Total Protein 7.7 GM/DL 6.4-8.2 [facility] ([facility]) Albumin/Globulin [facility] 0.9 1[facility]2.2 [facility] Albumin 3.7 GM/DL 3.2-5.2 [facility] ID Date Data Source [id number] 10/22/2020 08:40:00 AM EDT [facility] ([facility]) Name Value Range Interpretation Code Description Data Frances rce(s) Supporting Document(s) White Blood Count 8.8 10 4.0-10.0 [facility] ([facility]) Red Blood Count 4.54 10 4.00-5.40 [facility] ([facility]) Hemoglobin 13.6 g/dL 12.0-15.5 [facility] Hematocrit 42.4 % 36.0-47.0 [facility] ([facility]) Mean Corpuscular Hemoglobin 30.0 pg 27.0-33.0 [facility] ([facility]) Mean Corpuscular Volume 93.4 fl 80.0-96.0 [facility] ([facility]) Red Cell Distribution Width 13.5 % 11.5-14.5 [facility] ([facility]) Platelet Count, Automated 280 10 150-450 [facility] ([facility]) Mean Corpuscular HGB Conc 32.1 g/dL 32.0-36.5 [facility] ([facility]) Neutrophils % 64.6 % 36.0-66.0 [facility] ([facility]) Lymph % 23.4 % 24.0-44.0 [facility] Eos % 2.5 % 0.0-3.0 [facility] ([facility]) [place] % 7.7 % 2.0-8.0 [facility]) Immature Granulocyte % 1.1 % 0-3.0 [facility] ([facility]) Nucleated Red Blood Cell % 0.0 % 0-0 [facility] ([facility]) Baso % 0.7 % 0.0-1.0 [facility] Lymph # 2.1 10 1.5-5.0 [facility] Neutrophils # 5.7 10 1.5-8.5 [facility] ([facility]) [place] # 0.7 10 0.0-0.8 [facility] Baso # 0.1 10 0.0-0.2 [facility] Eos # 0.2 10 0.0-0.5 [facility] ID Date Data Source [id number] 10/12/2020 12:00:00 AM EDT [facility] Name Value Range Interpretation Code Description Data Frances rce(s) Supporting Document(s) SARS-CoV2 Rapid Antigen Negative [facility] This lab was ordered by [facility] and reported by [facility]. ID Date Data Source [id number] 10/07/2020 12:00:00 AM EDT [facility] Name Value Range Interpretation Code Description Data Frances rce(s) Supporting Document(s) SARS coronavirus 2 Ag NEGATIVE [facility] This lab was ordered by [facility] and reported by [facility]. ID Date Data Source [id number] 10/04/2020 07:00:00 AM EDT [facility] Name Value Range Interpretation Code Description Data Frances rce(s) Supporting Document(s) SARS coronavirus 2 RNA Not Detected [facility] This lab was ordered by [facility] and reported by [facility]. ID Date Data Source [id number] 10/01/2020 12:00:00 AM [facility] Name Value Range Interpretation Code Description Data Frances rce(s) Supporting Document(s) SARS-CoV2 Rapid Antigen Negative [facility] This lab was ordered by [facility] and reported by [facility]. ID Date Data Source [id number] 09/27/2020 09:45:00 AM EDT [facility] ([facility]) Name Value Range Interpretation Code Description Data Frances rce(s) Supporting Document(s) Thyrotropin [Units/volume] in Serum or Plasma by Detec tion limit <= 0.05 mIU/L 1.87 uIU/mL 0.36-3.74 [facility] ([facility] ) ID Date Data Source [id number] 09/27/2020 09:45:00 AM EDT [facility] ([facility]) Name Value Range Interpretation Code Description Data Frances rce(s) Supporting Document(s) Triglyceride [Mass/volume] in Serum or Plasma 92 mg/dL 30-150 [facility] ([facility]) Cholesterol [Mass/volume] in Serum or Plasma 161 mg/dL 131-200 [facility] ([facility]) Cholesterol in HDL [Mass/volume] in Serum or Plasma 72 mg/dL 35-60 [facility] ([facility]) Cholesterol in LDL [Mass/volume] in Serum or Plasma by calcu lation 71 CALC 50-159 [facility] ([facility]) ID Date Data Source [id number] 09/27/2020 09:45:00 AM EDT [facility] Name Value Range Interpretation Code Description Data Frances rce(s) Supporting Document(s) Glucose [Mass/volume] in Serum or Plasma 114 mg/dL 74-99 [facility] ([facility]) 100-125 mg/dL PRE-DIABETES/FASTING >126 mg/dL DIABETES/FASTING ID Date Data Source [id number] 09/27/2020 08:24:00 AM EDT [facility] Name Value Range Interpretation Code Description Data Frances rce(s) Supporting Document(s) SARS coronavirus 2 RNA Not Detected [facility] This lab was ordered by [facility] and reported by [facility]. ID Date Data Source [id number] 09/23/2020 12:00:00 AM EDT [facility] Name Value Range Interpretation Code Description Data Frances rce(s) Supporting Document(s) SARS coronavirus 2 Ag NEGATIVE [facility] This lab was ordered by [facility] and reported by [facility]. ID Date Data Source [id number] 09/20/2020 08:00:00 AM EDT [facility] Name Value Range Interpretation Code Description Data Frances rce(s) Supporting Document(s) SARS coronavirus 2 RNA Not Detected [facility] This lab was ordered by [facility] and reported by [facility]. ID Date Data Source PAP REQUEST FOR SERVICE 09/20/2020 12:00:00 AM EDT eCW1 ([facility]) Name Value Range Interpretation Code Description Data Frances rce(s) Supporting Document(s) PAP REQUEST FOR [facility]ICE [facility] ID Date Data Source [id number] 09/16/2020 12:00:00 AM EST [facility] Name Value Range Interpretation Code Description Data Frances rce(s) Supporting Document(s) SARS coronavirus 2 Ag NEGATIVE [facility] This lab was ordered by [facility] and reported by [facility]. ID Date Data Source [id number] 09/13/2020 10:32:00 AM EST [facility] Name Value Range Interpretation Code Description Data Frances rce(s) Supporting Document(s) SARS coronavirus 2 RNA Not Detected [facility] This lab was ordered by [facility] and reported by [facility]. ID Date Data Source [id number] 09/09/2020 12:00:00 AM EST [facility] Name Value Range Interpretation Code Description Data Frances rce(s) Supporting Document(s) SARS coronavirus 2 Ag NEGATIVE [facility] This lab was ordered by [facility] and reported by [facility]. ID Date Data Source [id number] 09/06/2020 07:00:00 AM EST [facility] Name Value Range Interpretation Code Description Data Frances rce(s) Supporting Document(s) SARS coronavirus 2 RNA Not Detected [facility] This lab was ordered by [facility] and reported by [facility]. ID Date Data Source [id number] 08/13/2020 11:30:47 AM EST [facility] Name Value Range Interpretation Code Description Data Frances rce(s) Supporting Document(s) Operative Note [facility] WCINOx7bFaKDGwSd33/PILboMMPvg8GjRGxaZEp4IFegVOJkI5UaICU1pC3nLPK4YIhFHtXvYpQvLgG8 [facility] GmAegCYzSgNZDuIriRKmClPAvjHjicaIXxOT3SdFN1LCQlY56aJJEdGXSwX4GjKBT9TDI+Ws3OOTCnjW QhZW6ODriD1HvsntjS4mwL4D+EikAnpHBr5iIHYR2sJen2elGGYaSO/oLESiLHKytkW/653ExR6WLWsW OrgnjlzH2M7b3vw/lgbuD44a/wBNW08ug6x/w1NJLd TNg//2US33Iwxms6nycHB9WpEpPLzb+V+QhIR42BN+heyml7i9wjAyBTs29FQ4o/+OryB9b/nYkgxZGA vyv4mTbnE6MRXhCdEnuY7Bj71Pk+iRO9J3zgNb1cF5/B5iLsA8DP2fyYxD1Q8lno9met9aWaFBSw6HQ6 ynii0wVHVTkGWFWXDWXMYkzOZWReTkQ07OuVedrI3i [file] AgICAgICAgICAgICAgICAgICAgICAgICAgICAgICAg ICAgICAgICAgICAgICAgICAgICAgICAgICAgICAgICAgICAgDQogICAgICAgICAgICAgICAgICAgICAg ICAgICAgICAgICAgICAgICAgICAgICAgICAgICAgICAgICAgICAgICAgICAgICAgICAgICAgICAgICAg ICAgICAgICAgICAgICAgICAgDQogICAgICAgICAgIC AgICAgICAgICAgICAgICAgICAgICAgICAgICAgICAgICAgICAgICAgICAgICAgICAgICAgICAgICAgIC AgICAgICAgICAgICAgICAgICAgICAgICAgICAgDQogICAgICAgICAgICAgICAgICAgICAgICAgICAgIC AgICAgICAgICAgICAgICAgICAgICAgICAgICAgICAg ICAgICAgICAgICAgICAgICAgICAgICAgICAgICAgICAgICAgICAgDQogICAgICAgICAgICAgICAgICAg ICAgICAgICAgICAgICAgICAgICAgICAgICAgICAgICAgICAgICAgICAgICAgICAgICAgICAgICAgICAg ICAgICAgICAgICAgICAgICAgICAgDQogICAgICAgIC AgICAgICAgICAgICAgICAgICAgICAgICAgICAgICAgICAgICAgICAgICAgICAgICAgICAgICAgICAgIC AgICAgICAgICAgICAgICAgICAgICAgICAgICAgICAgDQogICAgICAgICAgICAgICAgICAgICAgICAgIC AgICAgICAgICAgICAgICAgICAgICAgICAgICAgICAg ICAgICAgICAgICAgICAgICAgICAgICAgICAgICAgICAgICAgICAgICAgDQogICAgICAgICAgICAgICAg ICAgICAgICAgICAgICAgICAgICAgICAgICAgICAgICAgICAgICAgICAgICAgICAgICAgICAgICAgICAg ICAgICAgICAgICAgICAgICAgICAgICAgDQogICAgIC AgICAgICAgICAgICAgICAgICAgICAgICAgICAgICAgICAgICAgICAgICAgICAgICAgICAgICAgICAgIC AgICAgICAgICAgICAgICAgICAgICAgICAgICAgICAgICAgDQogICAgICAgICAgICAgICAgICAgICAgIC AgICAgICAgICAgICAgICAgICAgICAgICAgICAgICAg FGNePSEtRZNtHBAfXDMcBUFsLWTsXTQqNORfCOZwELHjLJXjCDTyUNJoBSFsZBp9J7ktONUgMWLpRY2k ZWv0Sb1+TLcUQzCaBOL1onZuwL8IEX3kd0UiBNrqCNWyj9AyRLl8YD4OYQQeLIdrVI2RFUfosj9OMSTc WDMqiZGAn9bgHrNsYIF9XAIzVwtuBW2NDNPvC0crvd NvLZCcLXBAYUvqXLYRUBvmJHSTGT8FPsKdF5MujF38LESOPz3+YMqyzdKgJvsRRiKpTDTre0EwIYv9SB 1GGNOqGutle0RmNqZtCLGFVKojUV4EHEE5IEYsOCEvYa2IHEYoE856paJiPT4DZj4ATsEvRF0rzg2QQj DpRMYxEsbBAze2CHqrKB9JpJOjDEbAtGFpCBEthsNf Xo86VCGunRLTnYrxbVMdpC7zAZYqeLKnpOyzVJKvOOVuXG8tFZ7zYUEuSWI6ZjU7ILSYMN8ZSIOhKXYz mJCpXBRmIZYGFP7BQDcsQWY4VYRaqcLozNJzTSnvTG0HNNXshlHcNgHtOATSFOg+Jp4TIB8zz9LaZItn LtVoGB7ovy4IYXuCHfTkP3L8cNWmO0R1SQumZr4REA ZqGOBoJWijIYUGVJhrHK9LSW1xmpE5ZY0PqTQhGVRdOZDhgJDbGGq7D27raTXiXJaiGC1FEHU+Chalino+Pg 4VJDCcDRVgYXJoWjUwROHJLvGjN5CrS7FQy7ZkK1CfAL10yAzluaZaLSwzHZ8YND8wMNFwRYVMMU6RjD GjqU9zslRjOVOfKJHUMzKqR24sfXPaCSLfZSUoIYKt Jw8GZOZkA0TygzYfnLjuupFeYIXzDZSBPY3EYGuluwPzeRMrcRgsEI81iXykBQ0ZIi1UVtRzLP0pnb2W xTKcRk2ELVWqZE1XWXMlQFAwBZTiVSW5ALYmTqWoSTyaUZOnFLPtKPI9PJYzMTFnDG1LVsPlMFAhFGFt VBakNBUcOZJyjk8YFXWjSNXpMZSzGgOeMBVeSRPiYD taPGIvOHTwJPS1USKbIVFcKZ6AOxXtILZfWYR1IeufMQNgQQEcih8OMUHfGIUiDmg0QyGtKPCzQSWnJS tkXLGuHCM6ZpXwDJSsALYdLD8HHtBqZFWmMWq1JzYfPRLyJUGdoh1VXKTpNTEtVBGsJNPtVZKqZZBqQK ikMQDoPGE4LpEnRIMgUDWgVJ6SPpHqUXGlFAvbOHXv BBBlCFCelz5SOWGrIGOfHQY8SSFrGMXkHDXhYFhhAEZdQYW1TJLsCOCcSUAkLI0ZWbVfJQHcHGF5GuOf QFLyMJYinm0GMXRfRVDoTEotWhWjIGDrMUTvJIrqZNKxHDMyRPWmKJGuJCAtAN1BTcUdMVOeTIG3Secn ZNRiUHNozu8ERNXfJVWdHyG6HqEgVVLtHHEjUNnsLQ HtTTQtJfO7GBRgRSJuXC0ZRsOlYLRhYML7KWzdLGDwHUXtdf4JCDZaHRJwNRXoCeVwUBZwRQToLSzhXP EtBHL7ArW1ZFCuNKKoVD6DHpQtKHXvHIRfYtRiXOIaPEEdzp2ErANjiFhjhy4LDUoNMf2UzQjvXQD0CW kdNt5rjTDvPaZmLESQXc9GzbLgOKDzPRJCCHbbLAPd BYT9VaxgJ1YrMJBuEgVdQil3QeJjPSikBAV2KlE7QFCcYpF8HaT9PeUfViPtOMO9SkV1ADUhIUTwRDE1 IAd6OSS6PHI+IA8kFUq+Cq4Vs6OccfO0luEmVUutUTWkAC6ITUUFS3LLWe== ID Date Data Source [id number] 08/05/2020 01:27:21 PM [facility] Name Value Range Interpretation Code Description Data Frances rce(s) Supporting Document(s) History and Physical [facility] ZFMLJq3cSaZQGnBp49/JLUwvVXHuo3LwHFsnGWv5TOssGAStV1HgQES6oF0mKQY0BGeUHsMoOuPfNZJ6 lbm [file] KQE1RlZ4MABzYS8qOLWPAf5+DMqvlGCkmFveAHIBXmL2OwoZSdKjSY6PHYs= ID Date Data Source [id number] 08/11/2020 01:04:00 PM EST [facility] Surgical Pathology ReportName: HERNANDEZ SALGUERORN: [id number] Number: [id number] Date: 08/05/2020 00:00Received Date: 08/06/2020 12:49Physician(s): JEREDTELILIANA,HOPE QUETELL,MIKALMOSpecimen(s) ReceivedA: Right breast scarB: Breast implant capsuleClinical HistoryHistory of breast cancer.DiagnosisA) SKIN, RIGHT BREAST, EXCISION: SKIN WITH SCAR. B) BREAST CAPSULE, RIGHT, EXCISION: CONGESTION, FIBROSIS AND MILDCHRONIC INFLAMMATION. Electronically Signed By Niels Breaux MD, Attending Pathologist :04:49Processed at [facility] Pathology Laboratory at [facility], [address] [place] [address]. [facility], [address] [place] [address]. Unless 'gross-only' is specified, the final diagnosis is based hal microscopic examination of surgical device sales representative sections of tissue.Gross DescriptionThe specimen is [...] nearest margin. No discrete lesions are appreciated. Promotional Marketing Agent sections aresubmitted in one cassette. Part B is received in formalin labeled with the patient's name "Vane" and "right breast capsule". It consists of three irregular,pink-purple, rubbery fibromembranous tissue fragments, 0.8 x 0.5 x 0.3 cmto 4.6 x 1.8 x 1.2 cm. The cut surfaces range from lanc[place]-pink, rubbery, andfibrous to yellow, soft, and fatty. No discrete lesions are appreciated. Promotional Marketing Agent sections are submitted in one cassette. CTC/pws This report may include one or more immunohistochemical stain results thatuse analyte specific reagents. All positive and negative controls havebeen reviewed by the attending pathologist and are satisfactory. The testswere d eveloped and their performance characteristics determined by [facility] Pathology department. They have not been cleared or approved by the USFood and Drug Administration. The FDA has determined that such clearanceor approval is not necessary. Name Value Range Interpretation Code Description Data Frances rce(s) Supporting Document(s) ID Date Data Source [id number] 08/02/2020 12:00:00 PM EST [facility] ([facility]) Name Value Range Interpretation Code Description Data Frances rce(s) Supporting Document(s) Coronavirus 2019 Nasopharygeal Laboratory test result [facility] ([facility]) This nucleic acid amplification test was developed and its performance characteristics determined by [employer]. Nucleic acid amplification tests include RT- PCR [...] detected) result in this assay. Performed at: [facility] [employer] [address] [place], [place] [id number] Glass Inserter: Maribel Casas PhD, Phone: [phone] Not Detected ID Date Data Source [id number] 08/02/2020 12:00:00 PM EST [facility] Name Value Range Interpretation Code Description Data [facility] rce(s) Supporting Document(s) SARS coronavirus 2 RNA Not Detected [facility] This lab was ordered by [facility] and reported by [facility]. ID Date Data Source [id number] 07/30/2020 08:37:00 AM EST [facility] ([facility], ) Name Value Range Interpretation Code Description Data Frances rce(s) Supporting Document(s) Surgical pathology study Laboratory test result [facility] ([facility], ) FINAL DIAGNOSIS Cecum, polyp, biopsy: Fragments [...] MD 08/02/2020 1355 ID Date Data Source [id number] 07/25/2020 09:00:00 AM EST [facility] Name Value Range Interpretation Code Description Data [facility] rce(s) Supporting Document(s) SARS coronavirus 2 RNA Not Detected [facility] This lab was ordered by [facility] and reported by [facility]. ID Date Data Source [id number] 07/12/2020 10:12:00 AM EST [facility] ([facility]) Name Value Range Interpretation Code Description Data Frances rce(s) Supporting Document(s) Choriogonadotropin.beta subunit [Moles/volume] in Seru m or Plasma Laboratory test result [facility] ([facility] ) GESTATIONAL AGE APPROXIMATE HCG RANGE [...] monitoring the treatment of cancer patients. Siemens [place] methodology. ID Date Data Source [id number] 07/12/2020 10:12:00 AM EST [facility] Name Value Range Interpretation Code Description Data Frances rce(s) Supporting Document(s) Appearance, Urine Laboratory test result [facility] Color, Urine Laboratory test result [facility] Specific [place] Urine Auto 1.023 1.002-1.035 [facility] PH,Urine 5.0 units 5.0-9.0 [facility] ([facility]) Protein, Urine Auto Laboratory test result [facility] Glucose, Urine (Ua) Auto Laboratory test result [facility] Urobilinogen, Urine Auto 0.2 mg/dL 0.0-2.0 [facility] Ketone, Urine Auto Laboratory test result [facility] Bilirubin, Urine Auto Laboratory test result [facility] Leukocyte Esterase, Urine Auto Laboratory test result [facility] Nitrite, Urine Auto Laboratory test result [facility] Blood, Urine Blood Laboratory test result [facility] WBC, Urine Auto 0 /HPF 0-3 [facility] ([facility]) RBC, Urine Auto 0 /HPF 0-3 [facility] ([facility]) Bacteria, Urine Auto Laboratory test result [facility] Hyaline Cast, Urine Auto 0 /LPF 0-1 [facility] Squamous Epithelial Cell Ur AU 0 /HPF 0-6 [facility] ([facility]) Amorphous Sediment Laboratory test result [facility] ID Date Data Source [id number] 07/12/2020 10:10:00 AM EST [facility] ([facility] Name Value Range Interpretation Code Description Data Frances rce(s) Supporting Document(s) Urea nitrogen [Mass/volume] in Serum or Plasma 14 mg/dL 7-18 [facility] ([facility]) Glucose [Mass/volume] in Serum or Plasma 109 mg/dL 74-99 [facility] ([facility]) 100-125 mg/dL PRE-DIABETES/FASTING >126 mg/dL DIABETES/FASTING Creatinine 0.6 mg/dL 0.6-1.3 [facility] ([facility]) Sodium [Moles/volume] in Serum or Plasma 139 meq/L 136-145 [facility] ([facility]) Potassium [Moles/volume] in Serum or Plasma 4.1 meq/L 3.5-5.1 [facility] ([facility]) Chloride [Moles/volume] in Serum or Plasma 103 meq/L 98-107 [facility] ([facility]) Carbon dioxide, total [Moles/volume] in Serum or Plasma 26 meq/L 21 -32 [facility] ([facility]) Calcium [Mass/volume] in Serum or Plasma 8.7 mg/dL 8.5-10.1 [facility] ([facility]) Alkaline phosphatase isoenzyme [Units/volume] in Serum or Pl asma 69 mg/dL 46-116 [facility] ([facility]) Aspartate aminotransferase [Enzymatic activity/volume] in Serum or Plasma 21 U/L 15-37 [facility] ([facility] ) Total Bilirubin 0.3 mg/dL 0.2-1.0 [facility] ([facility]) Alanine aminotransferase [Enzymatic activity/volume] in Seru m or Plasma 36 U/L 12-78 [facility] ([facility]) Proteinase 3 Ab [Units/volume] in Serum 7.1 g/dL 6.4-8.2 [facility] ([facility]) Albumin [Mass/volume] in Serum or Plasma 3.9 g/dL 3.4-5.0 [facility] ([facility]) A/G Ratio 1.22 CALC 1.00-1.90 [facility]) Glomerular filtration rate/1.73 sq M pre dicted among non-blacks [Volume Rate/Area] in Serum or Plasma by Creatinine-based formula (MDRD) Laboratory test result [facility] ([facility] ) Glomerular filtration rate/1.73 sq M pre dicted among blacks [Volume Rate/Area] in Serum or Plasma by Creatinine-based formula (MDRD) Laboratory test result [facility] <content>CHRONIC KIDNEY DISEASE STAGING PER NKF</content>
<content></content>
<content>STAGE I & II GFR >= 60 NORMAL TO MILDLY DECREASED</content>
<content>STAGE III GFR 30-59 MODERATELY DECREASED</content>
<content>STAGE IV GFR 15-29 SEVERELY DECREASED</content>
<content>STAGE V GFR <15 VERY LITTLE GFR LEFT</content>
<content>ESRD GFR <15 ON CRIMINAL DEFENSE LAWYER</content>
<content></content> ID Date Data Source [id number] 07/12/2020 10:10:00 AM EST [facility] ([facility]) Name Value Range Interpretation Code Description Data Frances rce(s) Supporting Document(s) Leukocytes [#/volume] in Blood by Automated count 6.3 x10*3/UL 4.1-10 .9 [facility] Erythrocytes [#/volume] in Blood by Automated count 4.91 x10*6/UL 4.2 0-6.30 [facility] Hemoglobin [Mass/volume] in Blood 14.5 g/dL 12.0-18.0 [facility] MCV 85.3 fL 80.0-97.0 [facility] ([facility]) Hematocrit [Volume Fraction] of Blood by Automated count 41.9 % 3 7.0-51.0 [facility] ([facility]) MCHC 34.6 g/dL 31.0-38.0 [facility] ([facility]) MCH 29.5 pg 26.0-32.0 [facility] ([facility]) Platelets [#/volume] in Blood by Automated count 298 x10*3/UL 140-440 [facility] Erythrocyte distribution width [Ratio] by Automated count 14.2 % 11.6-13.7 [facility] ([facility]) MPV 9.5 FL 7.8-11.0 [facility] ([facility]) Mid % 6.1 % 1.7-9.3 [facility] ([facility]) Lymph % 24.6 % 10.0-58.5 [facility] ([facility]) Lymph # 1.5 x10*3/UL 0.6-4.1 [facility] ([facility]) Neut % 69.3 % 37.0-92.0 [facility] ([facility]) Neut # 4.3 x10*3/UL 2.0-7.8 [facility] ([facility]) Mid # 0.5 x10*3/UL 0.1-0.6 [facility] ([facility]) ID Date Data Source [id number] 05/24/2020 03:34:00 PM EST [facility] ([facility]) Name Value Range Interpretation Code Description Data Frances rce(s) Supporting Document(s) Blood Urea Nitrogen 13 mg/dL 7-18 [facility] ([facility]) Glucose, Fasting 94 mg/dL 70-100 [facility] ([facility]) Glomerular Filtration Rate Laboratory test result [facility] ([facility]) <content>Units are mL/min/1.73 m2</content>
<content></content>
<content>Chronic Kidney Disease Staging per NKF:</content>
<content></content>
<content>Stage I & II GFR >=60 Normal to Mildly Decreased</content>
<content>Stage III GFR 30- 59 Moderately Decreased</content>
<content>Stage IV GFR 15-29 Severely Decreased</content>
<content>Stage V GFR <15 Very Little GFR Left</content>
<content>ESRD GFR <15 on CR[employer] DEFENSE LAWYER</content>
<content></content> Creatinine For GFR 0.65 mg/dL 0.55-1.30 [facility] ([facility]) Potassium Serum 3.6 meq/L 3.5-5.1 [facility] ([facility]) Sodium Level 140 meq/L 136-145 [facility] ([facility]) Chloride Level 107 meq/L 98-107 [facility] ([facility]) Carbon Dioxide Level 27 meq/L 21-32 [facility] ([facility]) Anion Gap 6 meq/L 8-16 [facility] ([facility]) Calcium Level 9.1 mg/dL 8.5-10.1 [facility] ([facility]) Ast/Sgot 11 U/L 7-37 [facility] ([facility]) Alt/SGPT 17 U/L 12-78 [facility] ([facility]) Bilirubin,Total 0.3 mg/dL 0.2-1.0 [facility] ([facility]) Alkaline Phosphatase 58 U/L 45-117 [facility] ([facility]) Total Protein 7.5 GM/DL 6.4-8.2 [facility] ([facility]) Albumin 3.8 GM/DL 3.2-5.2 [facility] ([facility]) Albumin/Globulin Ratio 1.0 1.2-2.2 [facility] ([facility]) ID Date Data Source [id number] 05/24/2020 03:34:00 PM EST [facility] ([facility]) Name Value Range Interpretation Code Description Data Frances rce(s) Supporting Document(s) White Blood Count 6.9 10 4.0-10.0 [facility] ([facility]) Hemoglobin 12.0 g/dL 12.0-15.5 [facility] ([facility]) Red Blood Count 4.35 10 4.00-5.40 [facility] ([facility]) Mean Corpuscular Volume 88.0 fl 80.0-96.0 [facility] ([facility]) Hematocrit 38.3 % 36.0-47.0 [facility] Mean Corpuscular Hemoglobin 27.6 pg 27.0-33.0 [facility] ([facility]) Mean Corpuscular HGB Conc 31.3 g/dL 32.0-36.5 [facility] ([facility]) Red Cell Distribution Width 16.3 % 11.5-14.5 [facility] ([facility]) Platelet Count, Automated 447 10 150-450 [facility] ([facility]) Lymph % 26.9 % 24.0-44.0 [facility] Neutrophils % 60.1 % 36.0-66.0 [facility] ([facility]) [place] % 10.1 % 0.0-5.0 [facility] Eos % 0.3 % 0.0-3.0 [facility] ([facility]) Baso % 0.9 % 0.0-1.0 [facility] ([facility]) Immature Granulocyte % 1.7 % 0-3.0 [facility] ([facility]) Nucleated Red Blood Cell % 0.0 % 0-0 [facility] ([facility]) Lymph # 1.9 10 1.5-5.0 [facility] ([facility]) Neutrophils # 4.2 10 1.5-8.5 [facility] ([facility]) [place] # 0.7 10 0.0-0.8 [facility] ([facility]) Baso # 0.1 10 0.0-0.2 [facility] ([facility]) Eos # 0.0 10 0.0-0.5 [facility] ([facility]) ID Date Data Source [id number] 05/03/2020 10:24:00 AM EDT [facility] ([facility]) Name Value Range Interpretation Code Description Data Frances rce(s) Supporting Document(s) Glucose, Fasting 120 mg/dL 70-100 [facility] ([facility]) Creatinine For GFR 0.72 mg/dL 0.55-1.30 [facility] ([facility]) Blood Urea Nitrogen 16 mg/dL 7-18 [facility] ([facility]) Sodium Level 139 meq/L 136-145 [facility] ([facility]) Glomerular Filtration Rate Laboratory test result [facility] <content>Units are mL/min/1.73 m2</content>
<content></content>
<content>Chronic Kidney Disease Staging per NKF:</content>
<content></content>
<content>Stage I & II GFR >=60 Normal to Mildly Decreased</content>
<content>Stage III GFR 30- 59 Moderately Decreased</content>
<content>Stage IV GFR 15-29 Severely Decreased</content>
<content>Stage V GFR <15 Very Little GFR Left</content>
<content>ESRD GFR <15 on [employer] LAWYER</content>
<content></content> Chloride Level 106 meq/L 98-107 [facility] ([facility] [facility]) Potassium Serum 3.9 meq/L 3.5-5.1 [facility] ([facility]) Carbon Dioxide Level 24 meq/L 21-32 [facility] ([facility]) Anion Gap 9 meq/L 8-16 [facility] ([facility]) Calcium Level 9.1 mg/dL 8.5-10.1 [facility] ([facility]) Ast/Sgot 17 U/L 7-37 [facility] ([facility]) Alkaline Phosphatase 56 U/L 45-117 [facility] ([facility]) Alt/SGPT 25 U/L 12-78 [facility] ([facility]) Bilirubin,Total 0.3 mg/dL 0.2-1.0 [facility] ([facility]) Total Protein 7.7 GM/DL 6.4-8.2 [facility] ([facility]) Albumin/Globulin Ratio 0.8 1.2-2.2 [facility] ([facility]) Albumin 3.5 GM/DL 3.2-5.2 [facility] ([facility]) ID Date Data Source [id number] 05/03/2020 10:24:00 AM EDT [facility] ([facility]) Name Value Range Interpretation Code Description Data Frances rce(s) Supporting Document(s) White Blood Count 5.7 10 4.0-10.0 [facility] ([facility]) Red Blood Count 4.46 10 4.00-5.40 [facility] ([facility]) Hematocrit 39.4 % 36.0-47.0 [facility] Hemoglobin 12.2 g/dL 12.0-15.5 [facility] Mean Corpuscular Volume 88.3 fl 80.0-96.0 [facility] ([facility]) Mean Corpuscular Hemoglobin 27.4 pg 27.0-33.0 ME DENT ([facility]) Mean Corpuscular HGB Conc 31.0 g/dL 32.0-36.5 MEDE NT ([facility]) Red Cell Distribution Width 16.4 % 11.5-14.5 [facility] ([facility]) Platelet Count, Automated 405 10 150-450 MED[facility] NT ([facility]) Neutrophils % 54.8 % 36.0-66.0 [facility] ([facility]) [place] % 8.9 % 0.0-5.0 [facility] Eos % 2.1 % 0.0-3.0 [facility]) Lymph % 31.5 % 24.0-44.0 [facility]) Immature Granulocyte % 1.1 % 0-3.0 [facility] ([facility]) Baso % 1.6 % 0.0-1.0 [facility]) Neutrophils # 3.1 10 1.5-8.5 [facility] ([facility]) Nucleated Red Blood Cell % 0.0 % 0-0 MED E[facility] ([facility]) [place] # 0.5 10 0.0-0.8 [facility]) Lymph # 1.8 10 1.5-5.0 [facility]) Eos # 0.1 10 0.0-0.5 [facility]) Baso # 0.1 10 0.0-0.2 [facility]) ID Date Data Source [id number] 04/22/2020 12:45:00 PM EDT [facility] ([facility]) Name Value Range Interpretation Code Description Data Frances rce(s) Supporting Document(s) Coronavirus 2019 Nasopharygeal Laboratory test result [facility] ([facility]) This nucleic acid amplification test was [...] detected) result in this assay. Performed at: [facility] [address] [id number] Glass Inserter: Julia Garcia MD, Phone: [phone] Not Detected ID Date Data Source [id number] 04/22/2020 12:45:00 PM EDT [facility] Name Value Range Interpretation Code Description Data Frances rce(s) Supporting Document(s) SARS coronavirus 2 RNA [facility] This lab was ordered by [facility] and reported by [facility]. ID Date Data Source [id number] 04/05/2020 08:50:00 AM EDT [facility] ([facility]) Name Value Range Interpretation Code Description Data Frances rce(s) Supporting Document(s) Glucose, Fasting 137 mg/dL 70-100 [facility] ([facility]) Creatinine For GFR 0.70 mg/dL 0.55-1.30 [facility] ([facility]) Glomerular Filtration Rate Laboratory test result [facility] ([facility]) <content>Units are mL/min/1.73 m2</content>
<content></content>
<content>Chronic Kidney Disease Staging per NKF:</content>
<content></content>
<content>Stage I & II GFR >=60 Normal to Mildly Decreased</content>
<content>Stage III GFR 30- 59 Moderately Decreased</content>
<content>Stage IV GFR 15-29 Severely Decreased</content>
<content>Stage V GFR <15 Very Little GFR Left</content>
<content>ESRD GFR <15 on [employer]</content>
<content></content> Blood Urea Nitrogen 16 mg/dL 7-18 [facility] ([facility]) Sodium Level 139 meq/L 136-145 [facility] ([facility]) Chloride Level 109 meq/L 98-107 [facility] ([facility]) Potassium Serum 3.9 meq/L 3.5-5.1 [facility] ([facility]) Anion Gap 7 meq/L 8-16 [facility] ([facility]) Calcium Level 8.8 mg/dL 8.5-10.1 [facility] ([facility]) Carbon Dioxide Level 23 meq/L 21-32 [facility] ([facility]) Ast/Sgot 12 U/L 7-37 [facility] ([facility]) Alkaline Phosphatase 63 U/L 45-117 [facility] ([facility]) Alt/SGPT 21 U/L 12-78 [facility] ([facility]) Bilirubin,Total 0.3 mg/dL 0.2-1.0 [facility] ([facility]) Total Protein 7.8 GM/DL 6.4-8.2 [facility] ([facility]) Albumin 3.4 GM/DL 3.2-5.2 [facility] ([facility]) Albumin/Globulin Ratio 0.8 1.2-2.2 [facility] ([facility]) ID Date Data Source [id number] 04/05/2020 08:50:00 AM EDT [facility] ([facility]) Name Value Range Interpretation Code Description Data Frances rce(s) Supporting Document(s) White Blood Count 5.4 10 4.0-10.0 [facility] ([facility]) Red Blood Count 4.52 10 4.00-5.40 [facility] ([facility]) Hemoglobin 12.7 g/dL 12.0-15.5 [facility] Mean Corpuscular Volume 88.5 fl 80.0-96.0 [facility] ([facility]) Hematocrit 40.0 % 36.0-47.0 [facility] Mean Corpuscular HGB Conc 31.8 g/dL 32.0-36.5 MEDE NT ([facility]) Red Cell Distribution Width 15.7 % 11.5-14.5 ME DENT ([facility]) Mean Corpuscular Hemoglobin 28.1 pg 27.0-33.0 ME [facility] ([facility]) Lymph % 12.1 % 24.0-44.0 [facility]) Neutrophils % 84.4 % 36.0-66.0 [facility] ([facility]) Platelet Count, Automated 329 10 150-450 MEDE NT ([facility]) Baso % 0.4 % 0.0-1.0 [facility]) Eos % 0.0 % 0.0-3.0 [facility]) [place] % 2.2 % 0.0-5.0 [facility]) Immature Granulocyte % 0.9 % 0-3.0 [facility] ([facility]) Nucleated Red Blood Cell % 0.0 % 0-0 MED E[facility] ([facility]) Neutrophils # 4.5 10 1.5-8.5 [facility] ([facility]) [place] # 0.1 10 0.0-0.8 [facility]) Lymph # 0.7 10 1.5-5.0 [facility]) Eos # 0.0 10 0.0-0.5 [facility] ([facility]) Baso # 0.0 10 0.0-0.2 [facility] ([facility]) ID Date Data Source [id number] 03/29/2020 08:58:00 AM EDT [facility] ([facility]) Name Value Range Interpretation Code Description Data Frances rce(s) Supporting Document(s) Glucose, Fasting 104 mg/dL 70-100 [facility] ([facility]) Blood Urea Nitrogen 15 mg/dL 7-18 [facility] ([facility]) Sodium Level 140 meq/L 136-145 [facility] ([facility]) Creatinine For GFR 0.53 mg/dL 0.55-1.30 [facility] ([facility]) Glomerular Filtration Rate Laboratory test result [facility] ([facility]) <content>Units are mL/min/1.73 m2</content>
<content></content>
<content>Chronic Kidney Disease Staging per NKF:</content>
<content></content>
<content>Stage I & II GFR >=60 Normal to Mildly Decreased</content>
<content>Stage III GFR 30- 59 Moderately Decreased</content>
<content>Stage IV GFR 15-29 Severely Decreased</content>
<content>Stage V GFR <15 Very Little GFR Left</content>
<content>ESRD GFR <15 on [employer]</content>
<content></content> Potassium Serum 3.7 meq/L 3.5-5.1 [facility] ([facility]) Chloride Level 108 meq/L 98-107 [facility] ([facility]) Carbon Dioxide Level 26 meq/L 21-32 [facility] ([facility]) Calcium Level 8.9 mg/dL 8.5-10.1 [facility] ([facility]) Anion Gap 6 meq/L 8-16 [facility] ([facility]) Alt/SGPT 19 U/L 12-78 [facility] ([facility]) Ast/Sgot 15 U/L 7-37 [facility] ([facility]) Alkaline Phosphatase 62 U/L 45-117 [facility] ([facility]) Total Protein 7.5 GM/DL 6.4-8.2 [facility] ([facility]) Bilirubin,Total 0.2 mg/dL 0.2-1.0 [facility] ([facility]) Albumin 3.1 GM/DL 3.2-5.2 [facility] ([facility]) Albumin/Globulin Ratio 0.7 1.2-2.2 [facility] ([facility]) ID Date Data Source [id number] 03/29/2020 08:58:00 AM EDT [facility] ([facility]) Name Value Range Interpretation Code Description Data Frances rce(s) Supporting Document(s) White Blood Count 8.4 10 4.0-10.0 [facility] ([facility]) Hemoglobin 11.7 g/dL 12.0-15.5 [facility] ([facility]) Red Blood Count 4.17 10 4.00-5.40 [facility] ([facility]) Mean Corpuscular Hemoglobin 28.1 pg 27.0-33.0 ME DENT ([facility]) Hematocrit 36.5 % 36.0-47.0 [facility] ([facility]) Mean Corpuscular Volume 87.5 fl 80.0-96.0 [facility] ([facility]) Red Cell Distribution Width 15.7 % 11.5-14.5 ME DENT ([facility]) Platelet Count, Automated 593 10 150-450 MEDE NT ([facility]) Mean Corpuscular HGB Conc 32.1 g/dL 32.0-36.5 MED[facility] NT ([facility]) Neutrophils % 64.5 % 36.0-66.0 [facility] ([facility]) [place] % 10.2 % 0.0-5.0 [facility] Lymph % 20.9 % 24.0-44.0 [facility] Immature Granulocyte % 2.5 % 0-3.0 [facility] ([facility]) Baso % 1.1 % 0.0-1.0 [facility] ([facility]) Eos % 0.8 % 0.0-3.0 [facility] ([facility]) Neutrophils # 5.4 10 1.5-8.5 [facility] ([facility]) Lymph # 1.8 10 1.5-5.0 [facility] ([facility]) Nucleated Red Blood Cell % 0.0 % 0-0 MED E[facility] ([facility]) Baso # 0.1 10 0.0-0.2 [facility] [place] # 0.9 10 0.0-0.8 [facility] ([facility]) Eos # 0.1 10 0.0-0.5 [facility] ([facility]) ID Date Data Source [id number] 03/25/2020 10:46:00 AM EDT [facility] ([facility]) Name Value Range Interpretation Code Description Data Frances rce(s) Supporting Document(s) Erythrocytes [#/volume] in Blood by Automated count 4.48 x10*6/UL 4.2 0-6.30 [facility] ([facility]) Leukocytes [#/volume] in Blood by Automated count 12.6 x10*3/UL 4.1-1 0.9 [facility] ([facility]) Hemoglobin [Mass/volume] in Blood 12.5 g/dL 12.0-18.0 [facility] ([facility]) Hematocrit [Volume Fraction] of Blood by Automated count 36.6 % 3 7.0-51.0 [facility] ([facility]) MCHC 34.3 g/dL 31.0-38.0 [facility] MCV 81.7 fL 80.0-97.0 [facility] ([facility]) MCH 28.1 pg 26.0-32.0 [facility] Platelets [#/volume] in Blood by Automated count 678 x10*3/UL 140-440 [facility] ([facility]) NOTE: RESULT VERIFIED. MPV 8.4 FL 7.8-11.0 [facility] ([facility]) Erythrocyte distribution width [Ratio] by Automated count 15.0 % 11.6-13.7 [facility] ([facility]) Mid % 5.1 % 1.7-9.3 [facility] ([facility]) Lymph % 13.6 % 10.0-58.5 [facility] ([facility]) Neut % 81.3 % 37.0-92.0 [facility] ([facility]) Lymph # 1.7 x10*3/UL 0.6-4.1 [facility] ([facility]) Mid # 0.6 x10*3/UL 0.1-0.6 [facility] ([facility]) Neut # 10.3 x10*3/UL 2.0-7.8 [facility] ([facility]) ID Date Data Source [id number] 03/25/2020 10:46:00 AM EDT [facility] ([facility]) Name Value Range Interpretation Code Description Data Frances rce(s) Supporting Document(s) Magnesium 2.2 mg/dL 1.8-2.4 [facility] ([facility]) ID Date Data Source [id number] 03/25/2020 10:46:00 AM EDT [facility] ([facility]) Name Value Range Interpretation Code Description Data Frances rce(s) Supporting Document(s) Creatinine 0.6 mg/dL 0.6-1.3 [facility] ([facility]) Urea nitrogen [Mass/volume] in Serum or Plasma 16 mg/dL 7-18 [facility] ([facility]) Glucose [Mass/volume] in Serum or Plasma 100 mg/dL 74-99 [facility] ([facility]) 100-125 mg/dL PRE-DIABETES/FASTING >126 mg/dL DIABETES/FASTING Potassium [Moles/volume] in Serum or Plasma 4.7 meq/L 3.5-5.1 [facility] ([facility]) Sodium [Moles/volume] in Serum or Plasma 140 meq/L 136-145 [facility] ([facility]) Carbon dioxide, total [Moles/volume] in Serum or Plasma 26 meq/L 21 -32 [facility] ([facility]) Chloride [Moles/volume] in Serum or Plasma 103 meq/L 98-107 [facility] ([facility]) Calcium [Mass/volume] in Serum or Plasma 9.1 [facility].5[facility]10.[facility] Glomerular filtration rate/1.73 sq M pre dicted among blacks [Volume Rate/Area] in Serum or Plasma by Creatinine-based formula (MDRD) Laboratory test result [facility] <content>CHRONIC KIDNEY DISEASE STAGING PER NKF</content>
<content></content>
<content>STAGE I & II GFR >= 60 NORMAL TO MILDLY DECREASED</content>
<content>STAGE III GFR 30-59 MODERATELY DECREASED</content>
<content>STAGE IV GFR 15-29 SEVERELY DECREASED</content>
<content>STAGE V GFR <15 VERY LITTLE GFR LEFT</content>
<content>ESRD GFR <15 ON [employer]</content>
<content></content> Glomerular filtration rate/1.73 sq M pre dicted among non-blacks [Volume Rate/Area] in Serum or Plasma by Creatinine-based formula (MDRD) Laboratory test result [facility] ID Date Data Source [id number] 03/11/2020 12:00:00 PM EDT [facility]) Name Value Range Interpretation Code Description Data Frances rce(s) Supporting Document(s) Prothrombin Time 16.8 s 11.8-14.0 [facility] ([facility]) Inr 1.33 [facility] ([facility]) THERAPUTIC HUMAN INR VALUES INDICATIONS NORMAL RANGES PROPHYLAXIS/TREATMENT OF: VENOUS THROMBOSIS 2.0-3.0 PULMONARY EMBOLISM 2.0-3.0 PREVENTION OF SYSTEMIC EMBOLISM FROM: TISSUE HEART VALVES 2.0-3.0 ACUTE MYOCARDIAL INFARCTION 2.0-3.0 VALVULAR HEART DISEASE 2.0-3.0 ATRIAL FIBRILLATION 2.0-3.0 MECHANICAL VALVES(HIGH RISK) 2.5-3.5 RECURRENT MYOCARDIAL INFARCTION 2.5-3.5 ID Date Data Source [id number] 03/11/2020 12:00:00 PM EDT [facility] ([facility]) Name Value Range Interpretation Code Description Data Frances rce(s) Supporting Document(s) White Blood Count 12.8 10 4.0-10.0 [facility] ([facility]) Hemoglobin 11.8 g/dL 12.0-15.5 [facility] ([facility]) Red Blood Count 4.16 10 4.00-5.40 [facility] ([facility]) Mean Corpuscular Volume 87.0 fl 80.0-96.0 [facility] ([facility]) Hematocrit 36.2 % 36.0-47.0 [facility] ([facility]) Mean Corpuscular Hemoglobin 28.4 pg 27.0-33.0 [facility] ([facility]) Red Cell Distribution Width 15.1 % 11.5-14.5 [place] [facility] ([facility]) Mean Corpuscular HGB Conc 32.6 g/dL 32.0-36.5 [facility] NT ([facility]) Platelet Count, Automated 277 10 150-450 [facility] NT ([facility]) Nucleated Red Blood Cell % 0.0 % 0-0 [facility] ([facility]) ID Date Data Source [id number] 03/11/2020 12:00:00 PM EDT [facility] ([facility]) Name Value Range Interpretation Code Description Data Frances rce(s) Supporting Document(s) Lymphocytes 4 % 16-44 [facility] ([facility]) Neutrophils 96 % 28-66 [facility] ([facility]) Anisocytosis Laboratory test result [facility] NT ([facility]) ID Date Data Source [id number] 03/11/2020 12:00:00 PM EDT [facility] ([facility]) Name Value Range Interpretation Code Description Data Frances rce(s) Supporting Document(s) Platelets [#/volume] in Blood by Estimate Laboratory test result [facility] ([facility]) ID Date Data Source [id number] 03/11/2020 11:54:00 AM EDT [facility] ([facility]) Name Value Range Interpretation Code Description Data Frances rce(s) Supporting Document(s) Lactate [Mass/volume] in Serum or Plasma 1.4 mmol/L 0.4-2.0 [facility] ([facility]) Y/N query for Sepsis Lactate Rule: Y ID Date Data Source [id number] 03/11/2020 11:54:00 AM EDT [facility]) Name Value Range Interpretation Code Description Data [facility](s) Supporting Document(s) CPK Creatine Phosphokinase 34 U/L 26-192 [facility] Troponin I Laboratory test result [facility]) <content>Troponin I Reference Interval f or Siemens [place] LOCI:</content>
<content></content>
<content>99th Percentile= 0.00-0.045 ng/ml</content>
<content></content>
<content>Risk Stratification:</content>
<content><= 0.10 ng/ml Decreased Risk for Adverse Clinical</content>
<content>Events.</content>
<content>0.10-1.50 ng/ml Increased Risk for Adverse Clinical</content>
<content>Events. Evaluation of additional</content>
<content>criterion and/or repeat testing in 2-6</content>
<content>hours is suggested to rule out myocardial</content>
<content>damage.</content>
<content>>= 1.50 ng/ml Indicative of Myocardial Injury.</content>
<content></content> CK-MB Value Mass Laboratory test result [facility] ([facility]) MB/CK Relative Index 2.94 [facility] ([facility]) <content>DIAGNOSIS CRITERIA</content>
<content>MMB ng/ml Relative Index (RI)</content>
<content>NON-AMI < or = 5 N/A</content>
<content>LEE ZONE > 5 < or = 4</content>
<content>AMI > 5 > 4</content>
<content></content> ID Date Data Source [id number] 03/11/2020 11:54:00 AM EDT [facility] ([facility]) Name Value Range Interpretation Code Description Data Frances rce(s) Supporting Document(s) Ast/Sgot 9 U/L 7-37 [facility] ([facility]) Alt/SGPT 23 U/L 12-78 [facility] ([facility]) Alkaline Phosphatase 68 U/L 45-117 [facility] Bilirubin,Total 0.6 mg/dL 0.2-1.0 [facility] ([facility]) Bilirubin,Direct 0.1 mg/dL 0.0-0.2 [facility] ([facility]) Total Protein 6.8 GM/DL 6.4-8.2 [facility] ([facility]) Albumin/Globulin Ratio 0.8 1.2-2.2 [facility] ([facility]) Albumin 3.1 GM/DL 3.2-5.2 [facility] ([facility]) ID Date Data Source [id number] 03/11/2020 11:54:00 AM EDT [facility] Name Value Range Interpretation Code Description Data [facility](s) Supporting Document(s) Glucose, Fasting 113 mg/dL 70-100 [facility] ([facility]) Blood Urea Nitrogen 12 mg/dL 7-18 [facility] ([facility]) Creatinine For GFR 0.61 mg/dL 0.55-1.30 [facility] ([facility] Sodium Level 139 meq/L 136-145 [facility] ([facility]) Glomerular Filtration Rate Laboratory test [facility] <content>Units are mL/min/1.73 m2</content>
<content></content>
<content>Chronic Kidney Disease Staging per NKF:</content>
<content></content>
<content>Stage I & II GFR >=60 Normal to Mildly Decreased</content>
<content>Stage III GFR 30- 59 Moderately Decreased</content>
<content>Stage IV GFR 15-29 Severely Decreased</content>
<content>Stage V GFR <15 Very Little GFR Left</content>
<content>ESRD GFR <15 on [employer]</content>
<content></content> Chloride Level 103 meq/L 98-107 [facility] ([facility]) Carbon Dioxide Level 28 meq/L 21-32 [facility] ([place] [facility]) Potassium Serum 3.5 meq/L 3.5-5.1 [facility] ([facility]) Calcium Level 8.9 mg/dL 8.5-10.1 [facility] ([facility]) Anion Gap 8 meq/L 8-16 [facility] ([facility]) ID Date Data Source [id number] 03/11/2020 11:54:00 AM EDT [facility] ([facility]) Name Value Range Interpretation Code Description Data Frances rce(s) Supporting Document(s) Lipoprotein lipase [Enzymatic activity/volume] in Serum or Plasm a 57 U/L 73-393 [facility] ([facility]) Procedure Social History Code Duration Value Status Description Data Source(s ) Smoking 03/30/2021 12:00:00 AM EDT Never Smoked Cigarettes com pleted Never Smoked Cigarettes [facility] ([employer] [facility] [employer]) Alcohol intake 01/27/2021 12:00:00 AM EDT Current drinker of al cohol (finding) completed Current drinker of alcohol (finding) [facility] Tobacco use and exposure 01/27/2021 12:00:00 AM EDT Never used co mpleted Never used [facility] Smoking 01/27/2021 12:00:00 AM EDT Never smoker completed Never s [facility] Smoking 12/10/2020 12:00:00 AM EDT Never Smoker completed Never S moker [facility] Smoking 09/20/2020 12:00:00 AM EDT Never Smoker completed Never S moker eCW1 ([facility]) Smoking 09/20/2020 12:00:00 AM EDT Never Smoker completed Never S moker eCW1 ([facility]) Smoking 06/28/2020 12:00:00 AM EST Never Smoker completed Never S moker eCW1 ([facility]) Smoking 06/28/2020 12:00:00 AM EST Never Smoker completed Never S moker eCW1 ([facility]) Smoking 06/28/2020 12:00:00 AM EST Never Smoker completed Never S moker eCW1 ([facility]) Smoking 06/28/2020 12:00:00 AM EST Never Smoker completed Never S moker eCW1 ([facility]) Vital Signs ID Date Data Source [id number] Name Value Range Interpretation Code Description Data Source(s) Diastolic blood pressure 60 mm[Hg] 60 mm[Hg] [facility] ([facility]) RT Arm Heart rate 92 /min 92 /min [facility] ([facility]) Body height 62.0 [in_i] 62.0 [in_i] [facility] ([facility]) 5'2" Body weight 183.00 [lb_av] 183.00 [lb_av] [facility] T ([facility]) Body mass index (BMI) [Ratio] 33.5 kg/m2 33.5 k g/m2 [facility] ([facility]) Systolic blood pressure 114 mm[Hg] 114 mm[Hg] M EDENT ([facility]) RT Arm Body mass index (BMI) [Ratio] 33.7 kg/m2 33.7 k g/m2 [facility] ([facility] ) Body temperature 97.1 [degF] 97.1 [degF] [facility] ([facility] ) Body height 62 [in_i] 62 [in_i] [facility] ([facility] ) 5'2" Body weight 184.00 [lb_av] 184.00 [lb_av] MEDEN T ([facility] ) Body weight 189.00 [lb_av] 189.00 [lb_av] MED[facility] T ([facility]) Systolic blood pressure 112 mm[Hg] 112 mm[Hg] M EDENT ([facility]) RT Arm Diastolic blood pressure 70 mm[Hg] 70 mm[Hg] [facility] ([facility]) RT Arm Heart rate 80 /min 80 /min [facility]) Body height 62.0 [in_i] 62.0 [in_i] [facility] ([facility]) 5'2" Body mass index (BMI) [Ratio] 34.6 kg/m2 34.6 k g/m2 [facility] ([facility]) Diastolic blood pressure 84 mm[Hg] 84 mm[Hg] eCW1 ([facility]) Respiratory rate 18 /min 18 /min eCW1 ([facility]) Body temperature 97.3 [degF] 97.3 [degF] eCW1 ( [facility] Systolic blood pressure 130 mm[Hg] 130 mm[Hg] e CW1 ([facility]) Body weight 187 [lb_av] 187 [lb_av] eCW1 ([facility]) Body weight 84.82 kg 84.82 kg eCW1 ([facility]) Body height 61.75 [in_i] 61.75 [in_i] eCW1 ([facility]) Body mass index (BMI) [Ratio] 34.48 kg/m2 34.48 kg/m2 eCW1 ([facility]) Heart rate 69 /min 69 /min eCW1 ([facility]) Diastolic blood pressure 70 mm[Hg] 70 mm[Hg] MEDENT ([facility]) RT Arm Heart rate 60 /min 60 /min MEDENT ([facility]) Systolic blood pressure 102 mm[Hg] 102 mm[Hg] M EDENT ([facility]) RT Arm Body height 62.0 [in_i] 62.0 [in_i] MEDENT ([facility]) 5'2" Body weight 180.50 [lb_av] 180.50 [lb_av] MEDEN T ([facility]) Body mass index (BMI) [Ratio] 33.0 kg/m2 33.0 k g/m2 MEDENT ([facility]) Systolic blood pressure 112 mm[Hg] 112 mm[Hg] M EDENT ([facility], ) Body surface area Derived from formula 1.84 m2 1.84 m2 MEDENT ([facility]) Diastolic blood pressure 68 mm[Hg] 68 mm[Hg] MEDENT ([facility]) Body height 62 [in_i] 62 [in_i] MEDENT ([facility]) 5'2" Body weight 183.00 [lb_av] 183.00 [lb_av] MEDEN T ([facility]) Body mass index (BMI) [Ratio] 33.5 kg/m2 33.5 k g/m2 MEDENT ([facility]) [place] body weight 110 [lb_av] 110 [lb_av] MEDEN T ([facility]) Body weight 83.009 kg 83.009 kg MEDENT ([facility]) Body weight 182 [lb_av] 182 [lb_av] eCW1 ([facility]) Body weight 82.55 kg 82.55 kg W1 ([facility]) Body height 61.75 [in_i] 61.75 [in_i] eCW1 ([facility]) Body mass index (BMI) [Ratio] 33.55 kg/m2 33.55 kg/m2 eCW1 ([facility]) Systolic blood pressure 108 mm[Hg] 108 mm[Hg] e CW1 ([facility]) Diastolic blood pressure 70 mm[Hg] 70 mm[Hg] eCW1 ([facility]) Systolic blood pressure 122 mm[Hg] 122 mm[Hg] M EDENT ([facility]) Diastolic blood pressure 72 mm[Hg] 72 mm[Hg] MEDENT ([facility]) Body height 61.5 [in_i] 61.5 [in_i] MEDENT ([facility]) 5'1.50" Body weight 181.00 [lb_av] 181.00 [lb_av] MEDEN T ([facility] [facility]) Body mass index (BMI) [Ratio] 33.6 kg/m2 33.6 k g/m2 MEDENT ([facility]) Body surface area Derived from formula 1.82 m2 1.82 m2 MEDENT ([facility] [facility]) Body height 62.0 [in_i] 62.0 [in_i] MEDENT ([facility]) 5'2" Body weight 173.50 [lb_av] 173.50 [lb_av] MEDEN T ([facility]) Systolic blood pressure 110 mm[Hg] 110 mm[Hg] M EDENT ([facility]) RT Arm Diastolic blood pressure 72 mm[Hg] 72 mm[Hg] MEDENT ([facility]) RT Arm Heart rate 76 /min 76 /min MEDENT ([facility]) Oxygen saturation in Arterial blood by Pulse oximetry --post exerci se 93 % 93 % MEDENT ([facility]) RM Air Body mass index (BMI) [Ratio] 31.7 kg/m2 31.7 k g/m2 MEDENT ([facility]) Body surface area Derived from formula 1.79 m2 1.79 m2 [facility] Systolic blood pressure 118 mm[Hg] 118 mm[facility]Hg] [facility] Diastolic blood pressure 64 mm[Hg] 64 mm[Hg] [facility] ([facility]) Body height 62 [in_i] 62 [in_i] [facility] ([facility]) 5'2" Body weight 171.00 [lb_av] 171.00 [[facility]_av] [facility] Body mass index (BMI) [Ratio] 31.3 kg/m2 31.3 k g/m2 [facility] ([facility]) [place] body weight 110 [lb_av] 110 [lb_av] MEDEN T ([facility]) Body weight 77.566 kg 77.566 kg [facility] ([facility]) Body height 61.75 [in_i] 61.75 [in_i] W1 ([facility]) Body weight 78.47 kg 78.47 kg W1 ([facility]) Body weight 173 [lb_av] 173 [lb_av] eCW1 ([facility]) Body mass index (BMI) [Ratio] 31.9 kg/m2 31.9 k g/m2 [facility]) Systolic blood pressure 133 mm[Hg] 133 mm[Hg] e CW1 ([facility]) Diastolic blood pressure 82 mm[Hg] 82 mm[Hg] eCW1 ([facility]) Body weight 170.2 [lb_av] 170.2 [lb_av] eCW1 ([facility]) Body weight 77.2 kg 77.2 kg eCW1 ([facility]) Body height 61.75 [in_i] 61.75 [in_i] eCW1 ([facility]) Body mass index (BMI) [Ratio] 31.38 kg/m2 31.38 kg/m2 eCW1 ([facility]) Heart rate 68 /min 68 /min eCW1 ([facility]) Respiratory rate 18 /min 18 /min eCW1 ([facility]) Body temperature 98.3 [degF] 98.3 [degF] eCW1 ( [facility]) Systolic blood pressure 122 mm[Hg] 122 mm[Hg] e CW1 ([facility]) Diastolic blood pressure 68 mm[Hg] 68 mm[Hg] eCW1 ([facility]) Body weight 170.2 [lb_av] 170.2 [lb_av] eCW1 ([facility]) Body weight 77.2 kg 77.2 kg eCW1 ([facility]) Body height 61.75 [in_i] 61.75 [in_i] eCW1 ([facility]) Body mass index (BMI) [Ratio] 31.38 kg/m2 31.38 kg/m2 eCW1 ([facility]) Heart rate 68 /min 68 /min eCW1 ([facility]) Respiratory rate 18 /min 18 /min eCW1 ([facility]) Body temperature 98.3 [degF] 98.3 [degF] eCW1 ( [facility]) Systolic blood pressure 122 mm[Hg] 122 mm[Hg] e CW1 ([facility]) Diastolic blood pressure 68 mm[Hg] 68 mm[Hg] eCW1 ([facility]) Systolic blood pressure 116 mm[Hg] 116 mm[Hg] M EDENT ([facility]) RT Arm Diastolic blood pressure 74 mm[Hg] 74 mm[Hg] MEDENT ([facility]) RT Arm Oxygen saturation in Arterial blood by Pulse oximetry --post exerci se 97 % 97 % MEDENT ([facility]) RM Air Heart rate 80 /min 80 /min MEDENT ([facility]) Body height 62.0 [in_i] 62.0 [in_i] MEDENT ([facility]) 5'2" Body weight 170.00 [lb_av] 170.00 [lb_av] MEDEN T ([facility]) Oxygen saturation in Arterial blood by Pulse oximetry 97 % 97 % MEDENT ([facility]) RM Air Body mass index (BMI) [Ratio] 31.1 kg/m2 31.1 k g/m2 MEDENT ([facility]) Oxygen saturation in Arterial blood by Pulse oximetry --post exerci se 92 % 92 % MEDENT ([facility]) RM Air Heart rate 116 /min 116 /min MEDENT ([facility]) Body weight 169.12 [lb_av] 169.12 [lb_av] MEDEN T ([facility]) Systolic blood pressure 108 mm[Hg] 108 mm[Hg] M EDENT ([facility]) RT Arm Diastolic blood pressure 70 mm[Hg] 70 mm[Hg] MEDENT ([facility]) RT Arm Body height 62.0 [in_i] 62.0 [in_i] MEDENT ([facility]) 5'2" Body mass index (BMI) [Ratio] 30.9 kg/m2 30.9 k g/m2 MEDENT ([facility]) ID Date Data Source [id number] 02/03/2021 12:30:31 PM [facility] Name Value Range Interpretation Code Description Data Source(s) WEIGHT RECORDED 181 lb 181 lb [facility] Body height Measured 62 in 62 in [facility] WEIGHT RECORDED 181 lb 181 lb [facility] Body height Measured 62 in 62 in [facility] ID Date Data Source [id number] 08/13/2020 11:30:47 AM [facility] Name Value Range Interpretation Code Description Data Source(s) WEIGHT RECORDED 168 lb 168 lb [facility] Body height Measured 62 in 62 in [facility] Patient Treatment Plan of Care Planned Activity Planned Date Details Description Data Source (s) fentaNYL (SUBLIMAZE) (PF) injection 25 mcg 01/27/2021 02:29:15 PM [facility] Losartan Potassium 25 MG Oral Tablet 12/20/2020 12:00:00 AM EDT [facility] anastrozole 1 MG Oral Tablet 07/26/2020 12:00:00 AM [facility] Metamucil 0.36 GM Oral Capsule (Psyllium) 06/08/2020 12:00:00 AM [facility]
[2021-05-09] MEDS ORDERED: BENZONATATE 100MG CAPSULE PO ONE (08:15)
[2021-05-09] MEDS ORDERED: METOCLOPRAMIDE INJ 10MG/2ML VIAL (J2765 PER 1) IV ONE (08:15)
[2021-05-09] MEDS ORDERED: NS 1,000 ML IV ONE (08:15)
[2021-05-09] MEDS ORDERED: KETOROLAC 30 MG/ML 1ML VIAL IV ONE (08:15)
[2021-05-09 09:36] LABS: BASO % 0.8 % (0.0-1.0); EOS # 0.2 10^3/uL (0.0-0.5); EOS % 3.8 % (0.0-3.0); HEMATOCRIT 41.1 % (36.0-47.0); HEMOGLOBIN 13.5 g/dl (12.0-15.5); LYMPH # 0.8 10^3/uL (1.5-5.0); LYMPH % 21.1 % (24.0-44.0); MEAN CORPUSCULAR HEMOGLOBIN 29.2 pg (27.0-33.0); MEAN CORPUSCULAR HGB CONC 32.8 g/dl (32.0-36.5); MONO # 0.7 10^3/uL (0.0-0.8); MONO % 17.6 % (2.0-8.0); NEUTROPHILS # 2.2 10^3/uL (1.5-8.5); NEUTROPHILS % 54.7 % (36.0-66.0); PLATELET COUNT, AUTOMATED 266 10^3/uL (150-450); RED BLOOD COUNT 4.62 10^6/uL (4.00-5.40); WHITE BLOOD COUNT 3.9 10^3/uL (4.0-10.0)
[2021-05-09 09:57] LABS: ERYTHROCYTE SEDIMENTATION RATE 17 mm/hr (0-30)
--- NOTE | 2021-05-09 10:24 | REP ---
INDICATION: L knee/leg pain, +COVID, r/o DVT COMPARISON: None. TECHNIQUE: Real time compression and duplex Doppler interrogation of the left lower extremity deep venous system is performed, including the right common femoral vein.Compression of the left peroneal and posterior tibial veins is performed. FINDINGS: The left common femoral, superficial femoral and popliteal veins are fully compressible with transducer pressure and demonstrate normal spontaneous and phasic flow, without evidence of deep venous thrombosis.The right common femoral vein demonstrates no thrombus.The visualized left peroneal and posterior tibial veins demonstrate no thrombus. There is a left popliteal cyst measuring 3.4 x 1.2 x 3.0 cm. IMPRESSION: No evidence of deep venous thrombosis of the left lower extremity femoral popliteal venous system.No thrombus in the visualized left peroneal and posterior tibial veins. There is a left popliteal cyst measuring 3.4 x 1.2 x 3.0 cm. <Electronically signed by Nabeel Mullins > 05/09/21 [id number]
[2021-05-09] MEDS ORDERED: methylPREDNISolone 125MG 2ML VIAL IV PRN (10:35)
[2021-05-09] MEDS ORDERED: NS 1,000 ML IV SCH (10:35)
[2021-05-09] MEDS ORDERED: CASIRIVIMAB/IMDEVIMAB 1,200 MG in NS 250 ML IV ONE (10:35)
[2021-05-09] MEDS ORDERED: ACETAMINOPHEN TAB 650MG DOSE (2X325MG) PO PRN (10:35)
[2021-05-09] MEDS ORDERED: diphenhydrAMINE 50MG/ML VIAL (J1200) IV ONE (10:35)
[2021-05-09] MEDS ORDERED: methylPREDNISolone 125MG 2ML VIAL IV ONE (10:35)
[2021-05-09] MEDS ORDERED: EPINEPHrine INJ 1 MG/ML 1ML AMP IM PRN (10:35)
[2021-05-09] MEDS ORDERED: ALBUTEROL 90 MCG/ACT 8GM HFA INHALER INH PRN (10:35)
[2021-05-09] MEDS ORDERED: ACETAMINOPHEN TAB 650MG DOSE (2X325MG) PO ONE (10:35)
[2021-05-09] MEDS ORDERED: diphenhydrAMINE 50MG/ML VIAL (J1200) IV PRN (10:35)
--- NOTE | 2021-05-09 10:49 | CR.PDOC ---
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 Patient denies any fever chills diarrhea anosmia dysgeusia abdominal pain pleuritic chest pain or shortness of breath. In the emergency room minor treatment pulse ox was 97% on room air with clear lungs. Patient is requesting monoclonal antibody infusion. 10 point review of system otherwise negative. ALLERGIES: Please see below. HOME MEDICATIONS: Please see below. PAST MEDICAL HISTORY: Bilateral breast cancer status post bilateral mastectomy with breast expanders and cycle specialist explant 12/2019 Prediabetic, diet controlled type 2 diabetes SVT status post ablation 2015 Diverticulitis with pneumoperitoneum 04/07/2020 Hypokalemia Kidney stones 4 para 4 postmenopausal 2013 PAST SURGICAL HISTORY: SVT status post ablation 2016 Bilateral mastectomy with bilateral breast expanders, cycle specialist explant 12/2019 FAMILY HISTORY: Father: age 74 due to CAD Mother: Age 83 with hypertension, arthritis Brother complicated diverticulitis Brother history of colon cancer SOCIAL 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 GENERAL APPEARANCE: Awake alert oriented to person place and time in no distress able to speak in full sentences without conversational dyspnea or tripod positioning or use of respiratory accessory muscles RESPIRATORY: Air entry is equal bilaterally no wheezing rales or rhonchi clear to auscultation CARDIOVASCULAR: S1-S2 regular rate rhythm ABDOMEN: Positive bowel sounds soft nontender nondistended normoactive No rebound guarding or hepatosplenomegaly EXTREMITIES: No cyanosis or clubbing LABORATORY DATA: Please see below. ASSESSMENT/PLAN: 51-year-old female with history of SVT status post ablation, bilateral breast cancer status post mastectomy with bilateral expanders and cycle specialist explantation, kidney stones, diverticulitis complicated by pneumoperitoneum presents with several day history of headache myalgias congestion cough and nausea and left knee pain with throbbing. In the minor treatment patient was found to have a popliteal cyst on the left lower extremity, and positive for coronavirus. Hospitalist was asked to consent the patient for monoclonal antibodies to be done and scheduled as outpatient at the 4 main Covid unit. 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 -Outpatient follow-up with [facility] History of kidney stones -Asymptomatic History of diverticulitis complicated by pneumomediastinum -Resolved Vital Signs/I&O Vital Signs Date Time Temp Pulse Resp B/P (MAP) Pulse Ox O2 Delivery O2 Flow Rate FiO2 05/09/21 09:23 Room Air 05/09/21 09:10 97 05/09/21 04:24 96.7 66 18 149/68 (95) Laboratory Data Labs 24H Laboratory Tests 2 05/09/21 04:34: Coronavirus (COVID-19)(PCR) POSITIVEA, Influenza Type A (RT-PCR) NEGATIVE, Influ lauren Type B (RT-PCR) NEGATIVE, Respiratory Syncytial Virus (PCR) NEGATIVE 05/09/21 08:14: Immature Granulocyte % (Auto) 2.0, Neutrophils (%) (Auto) 54.7, Lymphocytes (%) (Auto) 21.1L, Monocytes (%) (Auto) 17.6H, Eosinophils (%) (Auto) 3.8H, Basophils (%) (Auto) 0.8, Neutrophils # (Auto) 2.2, Lymphocytes # (Auto) 0.8L, Monocytes # (Auto) 0.7, Eosinophils # (Auto) 0.2, Basophils # (Auto) 0.0, Nucleated Red Blood Cells % (auto) 0.0, Erythrocyte Sedimentation Rate 17, C-Reactive Protein, Quantitative 0.76H 05/09/21 09:13: POC Glucose (Misc Panel) 104, POC Sodium (Misc Panel) 141, POC Potassium (Misc Panel) 3.7, POC Chloride (Misc Panel) 106, POC Total CO2 (Misc Panel) 23.0, POC Blood Urea Nitrogen (Misc Panel 10, POC Ionized Calcium (Misc Panel) 4.8, POC Creatinine (Misc Panel) 0.4L, POC Hematocrit (Misc Panel) 41.0 CBC/BMP Laboratory Tests 05/09/21 08:14 Allergies Coded Allergies: Contrast Media (Verified Allergy, Severe, anaphylaxis, 11/20/19) cephalexin (Verified Allergy, Intermediate, rash, 11/20/19) pt reports had has dose of this recently and did not break out in a rash, but did feel itchy TAPE (Verified Allergy, Mild, RASH, 11/20/19) clindamycin (Verified Allergy, Unknown, RASH/ITCH, 11/25/19) oxycodone (Verified Allergy, Unknown, RASH, 03/11/20) tapentadol (Verified Adverse Reaction, Unknown, N/V, 03/11/20) Home Medications Scheduled Anastrozole (Anastrozole) 1 Mg Tablet, 1 TAB PO DAILY, #90 . Cholecalciferol (Vitamin D3) (Vitamin D3) 125 Mcg Tablet, 5,000 UNIT PO DAILY, (Reported) L.acidoph/L.bulg/B.bif/S.therm (Crissy-Bid Caplet) 1 Each Tablet, 1 EA PO DAILY for 7 Days, #7 Probiotic can be picked up over the counter Losartan Potassium (Losartan Potassium) 25 Mg Tablet, 1 TAB PO DAILY for 30 Days, #30 (Reported) Multivitamin (Multivitamin) 1 Each Tablet, 1 EACH PO DAILY, (Reported) [place]-3/Dha/Epa/Fish Oil ([place]-3 Fish Oil 1,000 mg Sfgl) 1,000 Mg Capsule, 1 CAP PO DAILY, (Reported) Scheduled PRN Acetaminophen (Acetaminophen) 500 Mg Tablet, 1,000 MG PO Q8HP PRN for PAIN / FEVER for 30 Days, #90 Miscellaneous Medications Covid-19 Vacc,Mrna(Moderna)/Pf (Moderna Covid19 Vacc(Unapprov)) 100 Mcg/0.5 Ml Vial, 100 MCG IM, (Reported) MARÍA ELENA BARFIELD MD May 09, 2021 10:49
[2021-05-09] MEDS ORDERED: TESS100C PO (11:00)
[2021-05-09] MEDS ORDERED: PROAAER10 INH (11:00)
[2021-05-09] MEDS ORDERED: REGL10TA6 PO (11:00)
[2021-05-09] MEDS ORDERED: PULSE OXIMETER (11:10)
[2021-05-09 11:12] VITALS: BP 121/78
== END 2021-05-09 11:54 | disposition home or self-care (01) ==
LOC: M ED 04:23
DX: U07.1 COVID-19 (principal); E78.5 Hyperlipidemia, unspecified; R42 Dizziness and giddiness; G47.33 Obstructive sleep apnea (adult) (pediatric); K57.92 Diverticulitis of intestine, part unspecified, without perforation or abscess without bleeding; Z85.3 Personal history of malignant neoplasm of breast; Z92.21 Personal history of antineoplastic chemotherapy; Z87.442 Personal history of urinary calculi; M71.22 Synovial cyst of popliteal space [Baker], left knee; Z79.899 Other long term (current) drug therapy; Z91.040 Latex allergy status; Z91.89 Other specified personal risk factors, not elsewhere classified; Z88.1 Allergy status to other antibiotic agents; Z88.5 Allergy status to narcotic agent; Z88.8 Allergy status to other drugs, medicaments and biological substances
CPT/HCPCS: 36415; 80047; 85025; 85652; 86140; 87631; 93971; 96361; 96374; 96375; 99283; J1885; J2765

== ENCOUNTER 2021-05-09 12:05 | Outpatient (CLI) | payer BC ==
[~2021-05-09] VITALS: Ht 157.5 cm; Wt 80.0 kg
--- NOTE | 2021-05-09 11:33 | CR.PDOC ---
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 Patient denies any fever chills diarrhea anosmia dysgeusia abdominal pain pleuritic chest pain or shortness of breath. In the emergency room minor treatment pulse ox was 97% on room air with clear lungs. Patient is requesting monoclonal antibody infusion. 10 point review of system otherwise negative. ALLERGIES: Please see below. HOME MEDICATIONS: Please see below. 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 Prediabetic, diet controlled type 2 diabetes SVT status post ablation 2015 Diverticulitis with pneumoperitoneum 04/07/2020 Hypokalemia Kidney stones 4 para 4 postmenopausal 2013 PAST SURGICAL HISTORY: SVT status post ablation 2016 Bilateral mastectomy with bilateral breast expanders, switchboard and control room operator explant 12/2019 FAMILY HISTORY: Father: age 74 due to CAD Mother: Age 83 with hypertension, arthritis Brother complicated diverticulitis Brother history of colon cancer SOCIAL HISTORY: [facility]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 GENERAL APPEARANCE: Awake alert oriented to person place and time in no distress able to speak in full sentences without conversational dyspnea or tripod p ositioning or use of respiratory accessory muscles RESPIRATORY: Air entry is equal bilaterally no wheezing rales or rhonchi clear to auscultation CARDIOVASCULAR: S1-S2 regular rate rhythm ABDOMEN: Positive bowel sounds soft nontender nondistended normoactive No rebound guarding or hepatosplenomegaly EXTREMITIES: No cyanosis or clubbing LABORATORY DATA: Please see below. ASSESSMENT/PLAN: 51-year-old female with history of SVT status post ablation, bilateral breast cancer status post mastectomy with bilateral expanders and switchboard and control room operator explantation, kidney stones, diverticulitis complicated by pneumoperitoneum presents with several day history of headache myalgias congestion cough and nausea and left knee pain with throbbing. In the minor treatment patient was found to have a popliteal cyst on the left lower extremity, and positive for coronavirus. Hospitalist was asked to consent the patient for monoclonal antibodies to be done and scheduled as outpatient at the 4 main Covid unit. 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 -Outpatient follow-up with [facility] History of kidney stones -Asymptomatic History of diverticulitis complicated by pneumomediastinum -Resolved Allergies Coded Allergies: Contrast Media (Verified Allergy, Severe, anaphylaxis, 11/20/19) cephalexin (Verified Allergy, Intermediate, rash, 11/20/19) pt reports had has dose of this recently and did not break out in a rash, but did feel itchy TAPE (Verified Allergy, Mild, RASH, 11/20/19) clindamycin (Verified Allergy, Unknown, RASH/ITCH, 11/25/19) oxycodone (Verified Allergy, Unknown, RASH, 03/11/20) tapentadol (Verified Adverse Reaction, Unknown, N/V, 03/11/20) Home Medications Scheduled Anastrozole (Anastrozole) 1 Mg Tablet, 1 TAB PO DAILY, #90 . Benzonatate (Tessalon Perle) 100 Mg Capsule, 1 CAP PO TID for cough for 10 Days, #30 Cholecalciferol (Vitamin D3) (Vitamin D3) 125 Mcg Tablet, 5,000 UNIT PO DAILY, (Reported) L.acidoph/L.bulg/B.bif/S.therm (Crissy-Bid Caplet) 1 Each Tablet, 1 EA PO DAILY for 7 Days, #7 Probiotic can be picked up over the counter Losartan Potassium (Losartan Potassium) 25 Mg Tablet, 1 TAB PO DAILY for 30 Days, #30 (Reported) Multivitamin (Multivitamin) 1 Each Tablet, 1 EACH PO DAILY, (Reported) [place]-3/Dha/Epa/Fish Oil ([place]-3 Fish Oil 1,000 mg Sfgl) 1,000 Mg Capsule, 1 CAP PO DAILY, (Reported) Scheduled PRN Acetaminophen (Acetaminophen) 500 Mg Tablet, 1,000 MG PO Q8HP PRN for PAIN / FEVER for 30 Days, #90 Albuterol Sulfate (Proair Hfa) 8.5 Gm Hfa.aer.ad, 2 PUFF INH Q4-6HP PRN for wheezing for 21 Days, #1 Metoclopramide HCl (Reglan) 10 Mg Tablet, 10 MG PO Q6H PRN for NAUSEA, #20 Miscellaneous Medications Covid-19 Vacc,Mrna(Moderna)/Pf (Moderna Covid19 Vacc(Unapprov)) 100 Mcg/0.5 Ml Vial, 100 MCG IM, (Reported) MARÍA ELENA BARFIELD MD May 09, 2021 11:32
[~2021-05-09 12:05] MED LIST changes: +ACETAMINOPHEN TAB 650MG DOSE (2X325MG) PO ONE; +ACETAMINOPHEN TAB 650MG DOSE (2X325MG) PO PRN; +ALBUTEROL 90 MCG/ACT 8GM HFA INHALER INH PRN; +ALBUTEROL SULFATE 2.5 MG/0.5 ML INH NEB SOLN INH PRN; +EPINEPHrine INJ 1 MG/ML 1ML AMP IM PRN; +NS 1,000 ML IV SCH; +PROAAER10 INH; +PULSE OXIMETER; +REGL10TA6 PO; +TESS100C PO; +diphenhydrAMINE 50MG CAP PO ONE; +diphenhydrAMINE 50MG/ML VIAL (J1200) IV ONE; +diphenhydrAMINE 50MG/ML VIAL (J1200) IV PRN; +methylPREDNISolone 125MG 2ML VIAL IV ONE; +methylPREDNISolone 125MG 2ML VIAL IV PRN
[2021-05-09 12:12] VITALS: BP 145/80
[2021-05-09 12:42] VITALS: BP 122/72
[2021-05-09] MEDS ORDERED: CASIRIVIMAB/IMDEVIMAB 1,200 MG in NS 250 ML IV ONE (13:00)
[2021-05-09 13:12] VITALS: BP 123/65
[2021-05-09 14:12] VITALS: BP 125/74
== END 2021-05-09 14:12 | disposition home or self-care (01) ==
LOC: M OPCLI4PR 12:05
PROVIDERS: ATTEND General Practice
DX: U07.1 COVID-19 (principal)
CPT/HCPCS: 96375; J2930; M0243

== ENCOUNTER → 2021-06-13 | Outpatient (CLI) | payer BC ==
[~2021-06-13] MED LIST changes: -ACETAMINOPHEN TAB 650MG DOSE (2X325MG) PO ONE; -ACETAMINOPHEN TAB 650MG DOSE (2X325MG) PO PRN; -ALBUTEROL 90 MCG/ACT 8GM HFA INHALER INH PRN; -ALBUTEROL SULFATE 2.5 MG/0.5 ML INH NEB SOLN INH PRN; -EPINEPHrine INJ 1 MG/ML 1ML AMP IM PRN; -NS 1,000 ML IV SCH; -diphenhydrAMINE 50MG CAP PO ONE; -diphenhydrAMINE 50MG/ML VIAL (J1200) IV ONE; -diphenhydrAMINE 50MG/ML VIAL (J1200) IV PRN; -methylPREDNISolone 125MG 2ML VIAL IV ONE; -methylPREDNISolone 125MG 2ML VIAL IV PRN
--- NOTE | 2021-06-14 09:31 | REP ---
INDICATION: RT ANKLE PAIN ? OSTEO LESION. COMPARISON: Radiographs 05/02/2021. TECHNIQUE: Multiple sequences are obtained in the axial, coronal and sagittal planes. FINDINGS: The Achilles, anterior tibial, posterior tibial, flexor hallucis longus, flexor digitorum longus and peroneal tendons are all intact. There is mild fluid surrounding the flexor hallucis longus, flexor digitorum longus and posterior tibial tendons at the level of the ankle joint, compatible with mild tenosynovitis. The anterior and posterior talofibular, calcaneofibular and deltoid ligaments appear intact. Plantar tendon appears intact. There is no plantar fasciitis. Sinus tarsi appears unremarkable. No ganglion cyst is seen. There is normal amount of joint fluid. The cartilaginous surfaces are smooth. No osteochondral defect is seen at the tibiotalar joint. There is no bone marrow edema or occult fracture. IMPRESSION: There is mild fluid surrounding the flexor hallucis longus, flexor digitorum longus and posterior tibial tendons at the level of the ankle joint, compatible with mild tenosynovitis. <Electronically signed by Nabeel Mullins > 06/14/21 [id number]
== END ==
LOC: M RAD 17:13
PROVIDERS: ATTEND Orthopaedic Surgery
DX: M25.571 Pain in right ankle and joints of right foot (principal); M25.471 Effusion, right ankle

== ENCOUNTER → 2025-03-12 | Outpatient (RCR) ==
[~2025-03-12] MED LIST changes: +DIPH-435 PO; -DIPH25CA32 PO; -FLOM0.4C39 PO; +GABA-1172 PO; -GABA-282 PO; +LEVO1TAB39 PO; -LEVO500T3 PO; +LOSA25TA13 PO; -LOSA25TA14 PO; +ONDA-84 PO; -ONDA8TAB10 PO; -ROSU20TA5; +ROSU20TA86; +TAMS-18 PO
== END ==
LOC: EDSTATUS 11-17 12:34 → M EMPSKH 11-19 08:00
PROVIDERS: ATTEND Family Medicine
DX: Z00.00 Encounter for general adult medical examination without abnormal findings (principal); U07.1 COVID-19